=== PATIENT | male | born 1940 | race Caucasian/White ===

== ENCOUNTER 2019-03-06 19:31 | Emergency (ER) | payer OTHER, MEDICARE, SELFPAY | END 2019-03-06 22:52 | disposition home or self-care (01) | PROVIDERS: Emergency Provider Emergency Medicine; Family Provider Emergency Medicine Emergency Medical Services; Visit Provider Emergency Medicine | DX: F32.9 Major depressive disorder, single episode, unspecified (principal); E11.9 Type 2 diabetes mellitus without complications; I11.0 Hypertensive heart disease with heart failure; I50.9 Heart failure, unspecified; I25.10 Atherosclerotic heart disease of native coronary artery without angina pectoris; Z95.1 Presence of aortocoronary bypass graft | CPT/HCPCS: 70450; 71045; 80053; 81003; 85025; 99284 ==

== ENCOUNTER 2019-03-31 20:28 | Observation (INO) | payer OTHER, MEDICARE, SELFPAY ==
[2019-03-31 20:30] VITALS: BP 105/69; PULSE 79; RESP 16; TEMP 36.4; O2SAT 93; BMI 32.5
--- NOTE | 2019-03-31 20:30 | ED_ITS ---
Entered by Haylee Bryson, acting as scribe for Sol Nance HPI - Syncope General: Chief Complaint: Syncope Stated Complaint: SYNCOPAL EPISODE Time Seen by Provider: 03/31/19 20:31 Source: EMS Mode of arrival: EMS Limitations: no limitations History of Present Illness: HPI narrative: 78 yo m came to the er bu [facility]. Onset was today. Pt states that he was setting and when he got up he was dizzy and lightheaded. Pts family states that his family caught him when he fell and he was shaky after coming around. Pt states that his family wanted him to come to the hospital to get checked out. MD complaint: almost passed out Onset (ago): day(s) (today) Prodromal symptoms: other (dizzy) Witnessed: Yes - by Other (family) Context: standing up Injuries sustained associated with event: none Associated symptoms: Reports lightheadedness; Deny abdominal pain, chest pain, fever(s), headache(s), nausea or vertigo Treatments prior to arrival: none Review of Systems General: Reports: other (negative unless marked) Const: Denies: fever, chills, body aches, fatigue, malaise or diaphoresis Eyes: Denies: change in vision or blurry vision ENMT: Denies: throat pain, painful swallowing, hoarseness, ear pain, ear discharge, Change in hearing or nasal discharge Card: Reports: lightheadedness; Denies: chest pain, palpitations, irregular heart rhythm, syncope, pre-syncope, shortness of breath on exertion or shortness of breath when lying down Resp: Denies: shortness of breath, productive cough, non-productive cough, wheezing, coughing up blood or chest congestion GI: Denies: abdominal pain, nausea, vomiting, vomiting blood, coffee grounds in vomit, diarrhea, constipation, cramping, blood in stool or black tarry stool : Denies: flank pain, difficulty urinating, painful urination, urinary frequency, urinary urgency, decreased urine ouput, urinary incontinence or blood in urine Musc: Denies: neck pain, back pain, extremity pain, extremity swelling, joint pain, joint swelling, joint warmth or joint stiffness Skin/Breast: Denies: rash, skin tenderness or yellow skin Neuro: Denies: headache, numbness in extremities, weakness in extremities, changes in sensation, lack of coordination, difficulty walking, dizziness, vertigo or confusion Endo: Denies: excessive thirst, tired all the time, cold intolerance, excessive sweating, flushing or hot flashes Ahrsh/Lymph: Denies: easy bruising, easy bleeding, petechiae or enlarged lymph nodes All/Imm: Denies: hives, throat swelling, tongue swelling, facial swelling or acute wheezing PFSH ED PFSH: Statuses (acute, chronic, etc) shown below reflect problem list status as previously entered and may not be historically accurate Medical History (Updated 03/31/19 @ 22:23 by Sol Nance) CAD (coronary artery disease) (Acute) Carotid bruit (Acute) CHF (congestive heart failure) (Acute) Diabetes mellitus (Acute) Heart disease (Acute) Hypertension (Acute) Hypomagnesemia (Acute) Pulmonary edema (Acute) Renal failure (Acute) Syncope (Acute) Urolithiasis (Acute) Surgical History (Updated 03/31/19 @ 22:17 by Meenakshi Yeboah MD) H/O mitral valve replacement (Acute) Hx of CABG (Acute) S/P ureteral stent placement (Acute) Family History (Updated 03/31/19 @ 22:13 by Meenakshi Yeboah MD) Other Hyperlipidemia Hypertension Social History (Updated 03/31/19 @ 22:14 by Meenakshi Yeboah MD) Smoking and tobacco status: former smoker Alcohol intake: never Substance/Drug Use: never Marital status: Physical Exam Const: COMMON NORMALS: no apparent distress, oriented x3, no limitations, healthy appearing and well nourished EXAM LIMITATIONS: no altered mental status GENERAL APPEARANCE: cooperative, well kempt and well developed ORIENTATION/CONSCIOUSNESS: Yes awake HENMT: COMMON NORMALS: normocephalic, head/scalp atraumatic, hearing grossly normal bilaterally, external ears normal, EAC's normal, external nose normal and moist oral mucous membranes HEAD & SCALP: normal to inspection, normocephalic and atraumatic FACE & SINUS: normal facial exam and face symmetric NOSE: external nose normal and nares normal EXTERNAL EAR: Yes external ears normal EXTERNAL AUDITORY CANAL: EAC's normal MOUTH: oral and palatal mucosa normal and tongue normal Eye: COMMON NORMALS: PERRL, EOMs intact bilaterally, conjunctivae normal and no scleral icterus GENERAL EYE: normal appearance of both eyes and normal light reflex CONJUNCTIVA: Yes conjunctivae normal SCLERA: sclerae normal CORNEA: Yes corneas normal PUPIL: Yes PERRL DIRECT OPHTHALMOSCOPY: Yes normal light reflex Neck/C-Spine: COMMON NORMALS: full ROM, no lymphadenopathy, supple, no meningeal signs and no JVD GENERAL: Yes normal visual inspection and Yes trachea midline CERVICAL SPINE: Yes cervical ROM normal Chest: COMMONS NORMALS: inspection of chest normal and palpation of chest normal Resp: COMMON NORMALS: normal respiratory effort, no retractions, no use of accessory muscles and clear to auscultation bilaterally EFFORT & INSPECTION: Yes able to speak in complete sentences AUSCULTATION: clear to auscultation bilaterally Cardio: COMMON NORMALS: no JVD, regular rate, regular rhythm, S1 normal heart sound, S2 normal heart sound, no gallops, no clicks, no murmurs and no rub JUGULAR VENOUS DISTENTION: no JVD RATE: regular rate RHYTHM: regular rhythm HEART SOUNDS: S1 normal and S2 normal GI: COMMON NORMALS: soft to palpation, non-tender, no hepatosplenomegaly and no masses INSPECTION: Yes normal to inspection PALPATION: Yes soft and Yes no hepatosplenomegaly : COMMON NORMALS: Yes no CVA tenderness BLADDER/KIDNEY EXAM: Yes no CVA tenderness Back/Pelvis: COMMON NORMALS: no CVA tenderness, thoracic and lumbar spine normal to inspection, no thoracic nor lumbar tenderness and thoraco-lumbar ROM normal Extremity: COMMON NORMALS: normal to inspection, full ROM, normal capillary refill, no joint enlargement, no clubbing, cyanosis or edema and no calf tender ness Neuro: COMMON NORMALS: oriented x3, CN's II-XII intact bilaterally, moves all extremities, no focal motor deficits and no sensory deficits noted MENINGEAL SIGNS: Yes no meningeal signs Psych: COMMON NORMALS: mental status grossly normal, thought process normal, cooperative, affect normal, speech normal and activity/motor behavior normal APPEARANCE: Yes well kempt SPEECH: Yes normal speech THOUGHT PROCESS: normal thought process Skin: COMMON NORMALS: no rashes or lesions noted, skin turgor normal, no jaundice, no petechiae and no mottling GENERAL SKIN EXAM: no rashes or lesions noted and turgor normal Course ED course: 2058 -patient's orthostatic vital signs are positive. We will give 2 L of IV fluid and recheck his symptoms after that is completed. Vital Signs: Vital signs: Vital Signs Temperature 97.5 F L 03/31/19 20:30 Pulse Rate 67 03/31/19 20:51 Respiratory Rate 16 03/31/19 20:30 Blood Pressure 135/72 03/31/19 20:51 Pulse Oximetry 93 03/31/19 20:30 MDM - Syncope MDM Narrative: Medical decision making narrative: Arrival -patient arrives with a episode of unresponsiveness that has resolved. He has a cardiac history including diabetes. Differential is long including syncope, seizure, stroke among others. I will go ahead and initiate IV hydration and evaluate for common causes of his differential diagnoses. Admit -the patient was orthostatic and reveals an elevated creatinine from his baseline. He has a history of congestive heart failure so I proceeded with hydration slowly but despite this he still feels lightheaded. His EKG shows first-degree AV block and Q waves so a cardiac cause is still possible although felt to be less likely. I reviewed the case in full with Dr. Yeboah and he wants to admit the patient to the hospital for further hydration and he will consider possible echo or other evaluation. The patient agrees to this treatment plan. Lab Data: Attestation: I reviewed the patient's lab results. Labs: Lab Results 03/31/19 03/31/19 03/31/19 Range/Units 20:50 20:50 20:50 WBC 8.4 (4.0-10.0) 10^3/ uL RBC 4.57 (4.1-5.3) 10^6/u L Hgb 13.6 (11.7-16.6) g/dL Hct 41.5 L (42.0-52.0) % MCV 90.8 (80-94) fL MCH 29.8 (28.0-34.0) pg MCHC 32.8 (30.0-36.0) g/dL RDW 14.1 (12.1-15.1) % Plt Count 186 (130-400) 10^3/c mm MPV 9.7 (7.4-10.4) fL Neut % (Auto) 72.4 % Lymph % (Auto) 17.5 % [place] % (Auto) 8.1 % Eos % (Auto) 1.0 % Baso % (Auto) 0.5 % Neut # (Auto) 6.1 (1.8-7.7) 10^3/u L Lymph # (Auto) 1.5 (0.8-4.8) 10^3/u L [place] # (Auto) 0.7 (0.2-0.9) 10^3/u L Eos # (Auto) 0.1 (0.0-0.8) 10^3/u L Baso # (Auto) 0.0 (0.0-0.1) 10^3/u L Nucleated RBC % (a uto) 0 % Nucleated RBCs # 0.0 /100WBC Sodium 134 L (136-145) mmol/L Potassium 4.2 (3.5-5.1) mmol/L Chloride 95 L (98-107) mmol/L Carbon Dioxide 25 (22-29) mmol/L Anion Gap 18.2 (5-19) BUN 33 H (8-23) mg/dL Creatinine 2.1 H (0.7-1.2) mg/dL Glucose 239 H (74-106) mg/dL Calcium 9.8 (8.5-10.5) mg/dL Magnesium 2.0 (1.7-2.3) mg/dL Total Bilirubin 0.4 (0.15-1.2) mg/dL AST 14 (0-40) U/L ALT 18 (0-41) U/L Alkaline Phosphata se 92 (40-130) IU/L Troponin T Baselin e 48 H (0-15) ng/mL Total Protein 6.9 (6.6-8.7) g/dL Albumin 4.2 (3.5-5.2) g/dL Globulin 2.7 (1.3-4.6) g/dL Urine Color (Yellow) Urine Appearance (CLEAR) Urine pH (5-7) Ur Specific Gravit y (1.005-1.030) Urine Protein (Negative) Urine Glucose (UA) (Normal) Urine Ketones (Negative) Urine Occult Blood (Negative) Urine Nitrate (Negative) Urine Bilirubin (NEGATIVE) Urine Urobilinogen (Negative) mg/dL Ur Leukocyte Shilpa ase (Negative) Urine RBC (0-2) /hpf Urine WBC (0-5) /hpf Ur Squamous Epith Cells (0-5) Urine Bacteria (NONE) Hyaline Casts Urine Mucus 01/23/20 Range/Units 20:51 WBC (4.0-10.0) 10^3/ uL RBC (4.1-5.3) 10^6/u L Hgb (11.7-16.6) g/dL Hct (42.0-52.0) % MCV (80-94) fL MCH (28.0-34.0) pg MCHC (30.0-36.0) g/dL RDW (12.1-15.1) % Plt Count (130-400) 10^3/c mm MPV (7.4-10.4) fL Neut % (Auto) % Lymph % (Auto) % [place] % (Auto) % Eos % (Auto) % Baso % (Auto) % Neut # (Auto) (1.8-7.7) 10^3/u L Lymph # (Auto) (0.8-4.8) 10^3/u L [place] # (Auto) (0.2-0.9) 10^3/u L Eos # (Auto) (0.0-0.8) 10^3/u L Baso # (Auto) (0.0-0.1) 10^3/u L Nucleated RBC % (a uto) % Nucleated RBCs # /100WBC Sodium (136-145) mmol/L Potassium (3.5-5.1) mmol/L Chloride (98-107) mmol/L Carbon Dioxide (22-29) mmol/L Anion Gap (5-19) BUN (8-23) mg/dL Creatinine (0.7-1.2) mg/dL Glucose (74-106) mg/dL Calcium (8.5-10.5) mg/dL Magnesium (1.7-2.3) mg/dL Total Bilirubin (0.15-1.2) mg/dL AST (0-40) U/L ALT (0-41) U/L Alkaline Phosphata se (40-130) IU/L Troponin T Baselin e (0-15) ng/mL Total Protein (6.6-8.7) g/dL Albumin (3.5-5.2) g/dL Globulin (1.3-4.6) g/dL Urine Color Straw (Yellow) Urine Appearance Clear (CLEAR) Urine pH 5 (5-7) Ur Specific Gravit y 1.010 (1.005-1.030) Urine Protein Neg (Negative) Urine Glucose (UA) Trace H (Normal) Urine Ketones Negative (Negative) Urine Occult Blood Neg (Negative) Urine Nitrate Negative (Negative) Urine Bilirubin Neg (NEGATIVE) Urine Urobilinogen Norm (Negative) mg/dL Ur Leukocyte Shilpa ase Negative (Negative) Urine RBC None (0-2) /hpf Urine WBC 0-4 H (0-5) /hpf Ur Squamous Epith Cells 0-4 H (0-5) Urine Bacteria Trace (NONE) Hyaline Casts 0-4 H Urine Mucus Trace Imaging Data^: CXR: My impression: Poor inspiratory view. No acute cardiopulmonary findings. CT Head: Radiologist's impression: [address] [address] [address] Scan Report Signed Patient: Jose Armendariz Unit #: [id number] : 1940 Age/Sex: 78 / M ADM Date: 03/31/19 Loc: ER Room/Bed: Attending Dr: Ordering Provider/Ordering MD: Sol Nance DO Date of Service: 03/31/19 Procedure(s): CT head wo con* [id number] Accession Number(s): [id number] Report Number: [id number] PROCEDURE INFORMATION: Exam: CT Head Without Contrast Exam date and time: 03/31/2019 8:43 PM Age: 78 years old Clinical indication: Other: Syncope; Additional info: Brady/ams TECHNIQUE: Imaging protocol: Computed tomography of the head without contrast. Total DLP: 885.91 mGy-cm Radiation optimization: All CT scans at this facility use at least one of these dose optimization techniques: automated exposure control; mA and/or kV adjustment per patient size (includes targeted exams where dose is matched to clinical indication); or iterative reconstruction. COMPARISON: CT Head wo IV contrast* [id number] 03/06/2019 10:22 PM FINDINGS: Brain: Mild atrophy and mild white matter chronic microvascular changes are noted. No hemorrhage or CT evidence of acute infarction is seen. Ventricles: Normal. No ventriculomegaly. Bones/joints: Unremarkable. No acute fracture. Sinuses: Visualized sinuses are unremarkable. No fluid levels. Mastoid air cells: Visualized mastoid air cells are well aerated. Soft tissues: Unremarkable. CT/CT head wo con* [id number] IMPRESSION: No acute intracranial abnormality Radiation Dose CTDIVOL = (mGy): DLP = 885.91 (mGy-cm) Dictated By: Petar Meier MD Signed By: Petar Meier MD Signed Date/Time: 03/31/192122 DD/ 20 EKG Data^: EKG 1: Attestation: I personally reviewed and interpreted this EKG as follows: EKG interpretation date: 03/31/19 EKG interpretation time: 20:45 Interpretation: Normal sinus rhythm at 76 beats a minute, first-degree AV block, normal QRS duration, normal QTC, Q waves in 3 and aVF, nonspecific T wave flattening, findings similar to previous. 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, on chronic dialysis Condition: Stable Prescriptions: No Action Lasix 40 mg Tablet 40 mg PO DAILY RF: 0 atorvastatin 80 mg Tablet 80 mg PO QPM RF: 0 carvedilol 25 mg Tablet 25 mg PO BID RF: 0 Tylenol 325 mg Tablet 325 mg PO QID PRN (Reason: Pain) RF: 0 Senna-S 8.6-50 mg Tablet 1 tab-cap PO DAILY PRN (Reason: Constipation) RF: 0 Aspir-81 81 mg Tablet,Delayed Release (Dr/Ec) 81 mg PO DAILY RF: 0 MagOx 400 mg (241.3 mg magnesium) Tablet 400 mg PO DAILY RF: 0 Flomax 0.4 mg Capsule 0.4 mg PO DAILY RF: 0 erythromycin 5 mg/gram (0.5 %) Ointment 0.5 inch OPHTHALMIC (EYE) Q4H RF: 0 calcium polycarbophil 625 mg Tablet 1,250 mg PO DAILY RF: 0 docusate sodium 100 mg Capsule 100 mg PO TID PRN (Reason: Constipation) RF: 0 Novolog Flexpen U-100 Insulin 100 unit/mL (3 mL) Insulin Pen 0 unit SUBCUT TID RF: 0 omeprazole 20 mg Tablet,Delayed Release (Dr/Ec) 20 mg PO BID RF: 0 Vitamin D3 2,000 unit Tablet 2,000 unit PO DAILY RF: 0 venlafaxine 75 mg Tablet Extended Release 24 Hr 75 mg PO DAILY RF: 0 [place] 3-6-9 1,200 mg Capsule 1 cap PO BID RF: 0 Referrals: Sam Fay, [Family Provider] - Coding Level of Care Code ED Leave Specialist for Chg Fwd Exam Problem Focused The documentation recorded by the Braydon wolfe Stephanie Lyn, accurately reflects the service I personally performed and the decisions made by me, Sol Nance
--- NOTE | 2019-03-31 20:35 | ECG_ITS ---
Measurements Intervals [place] Rate: 76 P: 90 KS: 222 QRS: 34 QRSD: 110 T: 76 QT: 382 QTc: 430 SINUS RHYTHM WITH FIRST DEGREE AV BLOCK INFERIOR MYOCARDIAL INFARCTION , PROBABLY OLD [40+ ms Q WAVE AND/OR ST/T AB ABNORMALITY IN II/aVF] Compared to ECG 01/19/2018 01:22:09 Sinus tachycardia no longer present Myocardial infarct finding still present Electronically Signed On 04-01-2019 15:33:21 [employer]LE[employer] by Pippa Zimmerman M.D. [email or web address]
--- NOTE | 2019-03-31 20:35 | XRR_ITS ---
PROCEDURE INFORMATION: Exam: XR Chest, 1 View Exam date and time: 03/31/2019 9:02 PM Age: 78 years old Clinical indication: Cough and other: Syncope; Prior surgery; Surgery type: Cabg TECHNIQUE: Imaging protocol: XR of the chest Views: 1 view. COMPARISON: CR Chest 1 [place] [id number] 03/06/2019 9:58 PM FINDINGS: Lungs: The lungs are underinflated. Atelectasis and/or patchy airspace disease is present in the left lower lobe. Infection is possible. Pleural space: Unremarkable. No pleural effusion. No pneumothorax. Heart/Mediastinum: The cardiac silhouette is mildly enlarged, likely due to underlying cardiomegaly. Bones/joints: The patient is status post sternotomy. XR/XR chest 1V portable [id number] IMPRESSION: The lungs are underinflated. Atelectasis and/or patchy airspace disease is present in the left lower lobe. Infection is possible.
--- NOTE | 2019-03-31 20:35 | CTR_ITS ---
PROCEDURE INFORMATION: Exam: CT Head Without Contrast Exam date and time: 03/31/2019 8:43 PM Age: 78 years old Clinical indication: Other: Syncope; Additional info: Brady/ams TECHNIQUE: Imaging protocol: Computed tomography of the head without contrast. Total DLP: 885.91 mGy-cm Radiation optimization: All CT scans at this facility use at least one of these dose optimization techniques: automated exposure control; mA and/or kV adjustment per patient size (includes targeted exams where dose is matched to clinical indication); or iterative reconstruction. COMPARISON: CT Head wo IV contrast* [id number] 03/06/2019 10:22 PM FINDINGS: Brain: Mild atrophy and mild white matter chronic microvascular changes are noted. No hemorrhage or CT evidence of acute infarction is seen. Ventricles: Normal. No ventriculomegaly. Bones/joints: Unremarkable. No acute fracture. Sinuses: Visualized sinuses are unremarkable. No fluid levels. Mastoid air cells: Visualized mastoid air cells are well aerated. Soft tissues: Unremarkable. CT/CT head wo con* [id number] IMPRESSION: No acute intracranial abnormality Radiation Dose CTDIVOL = (mGy): DLP = 885.91 (mGy-cm)
[2019-03-31 20:51] VITALS: BP 104/62; BP 115/55; BP 135/72; PULSE 67; PULSE 74; PULSE 76
[2019-03-31 21:11] LABS: Add Urine Culture? No; Bacteria Urine TRACE; Bilirubin Urine Neg (NEGATIVE); Blood Urine Neg (Negative); Glucose Urine UA Trace (Normal); Hyaline Casts Urine 0-4; Ketones Urine Negative (Negative); Leukocyte Esterase Urine Negative (Negative); Mucus Urine TRACE; Nitrate Urine Negative (Negative); Protein Urine Neg (Negative); Squamous Epithelial Cell Urine 0-4 (0-5); Urine Appearance Clear (CLEAR); Urine Color Straw (Yellow); Urobilinogen Urine Norm (Negative); WBC Urine 0-4 /hpf (0-5); pH Urine 5 (5-7)
[2019-03-31 21:12] LABS: Basophils % 0.5 %; Eosinophils # 0.1 10^3/uL (0.0-0.8); Hematocrit 41.5 % (42.0-52.0); Hemoglobin 13.6 g/dL (11.7-16.6); Lymphocytes # 1.5 10^3/uL (0.8-4.8); Lymphocytes % 17.5 %; Mean Corpuscular HGB Conc 32.8 g/dL (30.0-36.0); Mean Corpuscular Hemoglobin 29.8 pg (28.0-34.0); Mean Corpuscular Volume 90.8 fL (80-94); Mean Platelet Volume 9.7 fL (7.4-10.4); Monocytes # 0.7 10^3/uL (0.2-0.9); Monocytes % 8.1 %; Neutrophils # 6.1 10^3/uL (1.8-7.7); Neutrophils % 72.4 %; Nucleated Red Blood Cells % 0 %; Platelet Count 186 10^3/cmm (130-400); Red Blood Count 4.57 10^6/uL (4.1-5.3); Red Cell Distribution Width 14.1 % (12.1-15.1); White Blood Count 8.4 10^3/uL (4.0-10.0)
[2019-03-31] MEDS: sodium chloride 0.9% 1,000 ML 999 ML IV ×2 (21:16)
[2019-03-31 21:35] LABS: Troponin(5th) Baseline 48 ng/mL (0-15)
[2019-03-31 21:54] LABS: Alanine Aminotransferase 18 U/L (0-41); Albumin Level 4.2 g/dL (3.5-5.2); Alkaline Phosphatase 92 IU/L (40-130); Anion Gap 18.2 (5-19); Aspartate Amino Transferase 14 U/L (0-40); Blood Urea Nitrogen 33 mg/dL (8-23); Calcium 9.8 mg/dL (8.5-10.5); Carbon Dioxide 25 mmol/L (22-29); Chloride 95 mmol/L (98-107); Globulin 2.7 g/dL (1.3-4.6); Glucose 239 mg/dL (74-106); Potassium 4.2 mmol/L (3.5-5.1); Sodium 134 mmol/L (136-145); Total Bilirubin 0.4 mg/dL (0.15-1.2); Total Protein 6.9 g/dL (6.6-8.7)
--- NOTE | 2019-03-31 22:10 | PM.HP ---
Providers/Chief Complaint Chief Complaint: SYNCOPAL EPISODE History of Present Illness Jose Armendariz is a 78 year old male who carries diagnosis of preserved ejection fraction heart failure, mechanical mitral valve 2008, not on Coumadin (taking aspirin), came in with chief complaint of single episode of syncopal event. Patient is endorsing that about 1 to 2 hours before the syncopal event he took his Coreg. When he was trying to get up from his chair he sway towards his left side, he seemed confused by the family, family noticed some myoclonic twitching, then family helped him to lay on the floor and his symptoms resolved he checked his blood pressure at that time systolic blood pressure was 80. His symptoms improved quickly without any confusion, seizure-like activities, urinary incontinence, tongue biting, chest pain, shortness of breath or palpitations. Patient is denying any diarrhea, vomiting but he is endorsing polyuria and constipation. He is able to pass flatus, he had one small bowel movement this morning, he had no abdominal pain. Diagnostics in ER showed normal hemodynamics, when I examined examining him he was status post 2 L normal saline fluids resuscitation, systolic blood pressure was 170, diastolic 90 mmHg. Patient was asymptomatic, able to give me all the details, he wanted to go home but hospital service was requested to admit him for syncopal event because of his heart failure and mitral valve replacement history I ordered d-dimer which came high after reviewing EKG which showed S1Q3, cannot get CTA I ordered VQ scan instead Review of Systems Const: Denies: fever or chills Eyes: Denies: change in vision ENMT: Denies: throat pain Card: Denies: chest pain, palpitations or edema Resp: Denies: shortness of breath GI: Reports: constipation; Denies: abdominal pain, nausea or vomiting : Denies: flank pain, difficulty urinating or urinary frequency Musc: Denies: neck pain Skin/Breast: Denies: rash Neuro: Denies: headache Psych: Denies: anxiety Endo: Reports: excessive urination Harsh/Lymph: Denies: easy bruising All/Imm: Denies: hives Medications/Allergies Home Medications Medication Instructions Recorded Confirmed Last Taken Type acetaminophen [Tylenol] 325 mg PO QID PRN 03/31/19 03/31/19 Unknown History aspirin [Aspir-81] 81 mg PO DAILY 03/31/19 03/31/19 Unknown History atorvastatin 80 mg PO QPM 03/31/19 03/31/19 Unknown History calcium polycarbophil 1,250 mg PO DAILY 03/31/19 03/31/19 Unknown History carvedilol 25 mg PO BID 03/31/19 03/31/19 Unknown History cholecalciferol (vitamin D3) 2,000 unit PO DAILY 03/31/19 03/31/19 Unknown History [Vitamin D3] docusate sodium 100 mg PO TID PRN 03/31/19 03/31/19 Unknown History erythromycin 0.5 inch OPHTHALMIC (EYE) Q4H 03/31/19 03/31/19 Unknown History fish,bora,flax oils-om3,6,9no1 1 cap PO BID 03/31/19 03/31/19 Unknown History [[place] 3-6-9] furosemide [Lasix] 40 mg PO DAILY 03/31/19 03/31/19 Unknown History insulin aspart U-100 [Novolog 0 unit SUBCUT TID 03/31/19 03/31/19 Unknown History Flexpen U-100 Insulin] magnesium oxide [MagOx] 400 mg PO DAILY 03/31/19 03/31/19 Unknown History omeprazole 20 mg PO BID 03/31/19 03/31/19 Unknown History sennosides-docusate sodium 1 tab-cap PO DAILY PRN 03/31/19 03/31/19 Unknown History [Senna-S] tamsulosin [Flomax] 0.4 mg PO DAILY 03/31/19 03/31/19 Unknown History venlafaxine 75 mg PO DAILY 03/31/19 03/31/19 Unknown History Allergies Allergy/AdvReac Type Severity Reaction Status Date / Time lisinopril Allergy ALGY-Rash Verified 03/31/19 20:39 PFSH Acute PFSH: Statuses (acute, chronic, etc) shown below reflect problem list status as previously entered and may not be historically accurate Medical History (Updated 03/31/19 @ 22:23 by Sol Nance) CAD (coronary artery disease) (Acute) Carotid bruit (Acute) CHF (congestive heart failure) (Acute) Diabetes mellitus (Acute) Heart disease (Acute) Hypertension (Acute) Hypomagnesemia (Acute) Pulmonary edema (Acute) Renal failure (Acute) Syncope (Acute) Urolithiasis (Acute) Surgical History (Updated 03/31/19 @ 22:17 by Meenakshi Yeboah MD) H/O mitral valve replacement (Acute) Hx of CABG (Acute) S/P ureteral stent placement (Acute) Family History (Updated 03/31/19 @ 22:13 by Meenakshi Yeboah MD) Other Hyperlipidemia Hypertension Social History (Updated 03/31/19 @ 22:14 by Meenakshi Yeobah MD) Smoking and tobacco status: former smoker Alcohol intake: never Substance/Drug Use: never Marital status: Vitals/I&O/Wt Last Vital Signs Temp 97.5 F L 03/31/19 20:30 Pulse 67 03/31/19 20:51 Resp 16 03/31/19 20:30 BP 135/72 03/31/19 20:51 Pulse Ox 93 03/31/19 20:30 Weight last 48 hrs Weight 99.79 kg Physical Exam Narrative: EXAM NARRATIVE: Morbidly obese male sitting comfortable in his bed with normal hemodynamics, systolic blood pressure 170mmhg Neurologically nonfocal exam GCS 15, Patient felt dizzy when he was try to get out of bed S1, S2 EKG showed normal sinus rhythm, no active signs of heart failure, no peripheral edema or JVD Lungs were positive for adequate breath sounds with mild crackles at the bases otherwise no wheezing Abdomen soft but distended and bloated, bowel sounds sluggish, nontender, Skin shows no signs of ischemia gangrene or ulcer No lower extremity edema Appropriate mood and affect No signs of dehydration Data : 03/31/19 20:50 03/31/19 20:50 A&P Assessment and plan (1) Syncope: Status: Acute Qualifiers: Syncope type: unspecified Qualified Code(s): R55 - Syncope and collapse Code(s): R55 - Syncope and collapse (2) 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, on chronic dialysis: Status: Acute Qualifiers: Acute renal failure type: unspecified Qualified Code(s): N17.9 - Acute kidney failure, unspecified; N18.9 - Chronic kidney disease, unspecified; Z99.2 - Dependence on renal dialysis Code(s): N17.9 - Acute kidney failure, unspecified; N18.9 - Chronic kidney disease, unspecified; Z99.2 - Dependence on renal dialysis (3) Hypertension: Status: Acute Code(s): I10 - Essential (primary) hypertension (4) CHF (congestive heart failure): Status: Acute Code(s): I50.9 - Heart failure, unspecified (5) Diabetes mellitus: Status: Acute Code(s): E11.9 - Type 2 diabetes mellitus without complications Additional A&P Information Syncope Patient is orthostatic positive he was feeling dizzy on his attempt to get out of bed otherwise currently he is hypotensive after getting 2 L of normal saline High d-dimer we will check VQ scan to rule out PE First-degree AV block on EKG with S1 Q 3 pattern No electrolyte abnormality No signs of dehydration Patient is endorsing symptoms of hyperglycemia such as polyuria and hyperglycemia with polyphagia, I do believe that combination of polyuria with tamsulosin might have contributed to his symptoms Echo and carotid Doppler in the morning PT evaluation Chronic kidney disease with baseline creatinine fluctuating between 1.8-2 Preserved ejection fraction heart failure: No active exacerbation, I will check BNP Because of crackles bibasilar I will give him 1 dose of Lasix in the morning Hypertension: Currently blood pressure 170 systolic, I would continue his home medications, Lasix in the morning, Type 2 diabetes suboptimally controlled, current blood sugar 239 He takes Lantus 50 units with NovoLog with meals Mitral valve replacement 2008 Patient is not on Coumadin Patient is stating that he has been on aspirin which was prescribed by his human geography instructor DVT prophylaxis: Heparin Full code GI prophylaxis: Omeprazole Attestations Medical Necessity Statement*: Anticipating discharge in less than 48 hours needs. 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
[2019-03-31 22:27] VITALS: BP 156/93; PULSE 82; RESP 16; O2SAT 93
--- NOTE | 2019-03-31 22:35 | ECG_ITS ---
Measurements Intervals [place] Rate: 82 P: 83 NC: 203 QRS: 27 QRSD: 105 T: 45 QT: 380 QTc: 445 SINUS RHYTHM INFERIOR MYOCARDIAL INFARCTION , PROBABLY OLD [40+ ms Q WAVE AND/OR ST/T ABNORMALITY IN II/aVF] Compared to ECG 01/19/2018 01:22:09 Sinus tachycardia no longer present First degree AV block no longer present Myocardial infarct finding still present Electronically Signed On 04-01-2019 15:36:46 SOLAR WATER HEATER INSTALLER by Pippa Zimmerman M.D. [email or web address]
[2019-03-31 22:41] LABS: D Dimer 0.62 ug/mIFEU (0-0.59)
[2019-03-31 22:57] VITALS: BP 173/83; PULSE 79; RESP 22; TEMP 36.6; O2SAT 94
[2019-03-31 23:01] LABS: Troponin 5 2HR 45.32 ng/mL (0-15)
[2019-03-31 23:03] VITALS: BP 170/92; PULSE 82; RESP 16; O2SAT 93
[2019-03-31 23:15] LABS: Troponin 5 2HR Delta -2.68 ABS# (0-10)
[2019-03-31] MEDS: heparin 5,000 unit/mL INJ 1 mL 5000 UNIT SUBCUT (23:38)
[2019-03-31] MEDS: sodium chloride 0.9% 1,000 ML 100 ML IV (23:39)
[2019-03-31 23:43] LABS: Thyroid Stimulating Hormone 1.59 uIU/mL (0.27-4.20)
[2019-03-31 23:56] LABS: Glucose Point of Care 168 mg/dL (70-110)
[2019-03-31 23:59] LABS: NT Pro B Type Natriuretic Pept 487 pg/mL (0-450)
[2019-04-01] VITALS (7 sets, daily range): BP systolic 139–177; BP diastolic 68–102; PULSE 73–84; RESP 12–16; TEMP 36.6–36.8; O2SAT 93–96
[2019-04-01] MEDS: insulin glargine 100 units/1 mL 50 UNIT SUBCUT (00:02)
--- NOTE | 2019-04-01 02:35 | ECG_ITS ---
Measurements Intervals [place] Rate: 81 P: 95 MT: 213 QRS: 55 QRSD: 106 T: 40 QT: 375 QTc: 438 SINUS RHYTHM WITH FIRST DEGREE AV BLOCK POSSIBLE LATERAL MYOCARDIAL INFARCTION [30 ms Q WAVE IN I/aVL/V5/V6], PROBABLY OLD INFERIOR MYOCARDIAL INFARCTION [40+ ms Q WAVE AND/OR ST/T ABNORMALITY IN II/aVF], PROBABLY OLD Compared to ECG 01/19/2018 01:22:09 Sinus tachycardia no longer present Myocardial infarct finding still present Electronically Signed On 04-01-2019 15:37:00 BLUEPRINTING AND PHOTOCOPY SUPERVISOR by Pippa Zimmerman M.D. [email or web address]
[2019-04-01 03:10] LABS: Blood Urea Nitrogen 29 mg/dL (8-23); Calcium 9.3 mg/dL (8.5-10.5); Carbon Dioxide 26 mmol/L (22-29); Chloride 101 mmol/L (98-107); Glucose 172 mg/dL (74-106); Osmolality Calculated 285 mOsm/kg (285-295); Sodium 137 mmol/L (136-145)
[2019-04-01 03:12] LABS: Troponin 5 6HR 45.05 ng/L (0-15); Troponin 5 6HR Delta -2.95 ng/L (0-12)
[2019-04-01 03:17] LABS: Basophils % 0.1 %; Eosinophils # 0.1 10^3/uL (0.0-0.8); Hematocrit 37.4 % (42.0-52.0); Hemoglobin 12.6 g/dL (11.7-16.6); Lymphocytes # 1.6 10^3/uL (0.8-4.8); Lymphocytes % 21.2 %; Mean Corpuscular HGB Conc 33.7 g/dL (30.0-36.0); Mean Corpuscular Hemoglobin 30.3 pg (28.0-34.0); Mean Corpuscular Volume 89.9 fL (80-94); Mean Platelet Volume 9.8 fL (7.4-10.4); Monocytes # 0.6 10^3/uL (0.2-0.9); Monocytes % 8.1 %; Neutrophils # 5.3 10^3/uL (1.8-7.7); Neutrophils % 69.3 %; Nucleated Red Blood Cells % 0 %; Platelet Count 174 10^3/cmm (130-400); Red Blood Count 4.16 10^6/uL (4.1-5.3); White Blood Count 7.7 10^3/uL (4.0-10.0)
[2019-04-01 07:26] LABS: Glucose Point of Care 145 mg/dL (70-110)
[2019-04-01] MEDS: carvedilol 6.25 mg Tablet PO (09:16)
[2019-04-01] MEDS: magnesium oxide 400 mg tablet PO (09:16)
[2019-04-01] MEDS: aspirin 81 mg EC Tablet PO (09:17)
[2019-04-01] MEDS: pantoprazole DR 40 mg Tablet PO (09:17)
[2019-04-01] MEDS: heparin 5,000 unit/mL INJ 1 mL 5000 UNIT SUBCUT (09:19)
[2019-04-01 11:14] LABS: Glucose Point of Care 189 mg/dL (70-110)
--- NOTE | 2019-04-01 12:42 | PC.CHAP ---
Pastoral Care Encounter/Spiritual Assessment Type of Contact [] Declined surveillance inspector visit [] Patient/Family/Request visit [] Outpatient visit [] Follow-up visit [] Physician referral [] Code/Alert [x] Routine visit [] Staff referral [] Actively dying [] Patient sleeping [] Family support [] [] Out of room [] Palliative care [] [] Receiving care in room [] Pre-surgical visit [] Trauma [] Long length of stay [] ICU visit [] Other: Relational/Emotional Strength [x] Patient feels connected with others/family/visitors/staff [x] Distress [] Loneliness/isolation [] Abandonment Spirituality of Patient [x] Person of [place]ague [] Attends Anglican of their [place] [x] Believes in Prayer [] Reads Bible or Yazidism materials [] There are Spiritual issues to be addressed Commissioning Manager Interventions [x] Prayer [x] Active listening [x] Non-anxious presence [x] Spiritual/emotional support [] Crisis/trauma care [x] Spiritual counseling [] Bereavement support [] Provided bereavement packet [] Provided Bible/devotional materials [] Provided toy/stuffed animal, coloring book to patient or family member [] Completed spiritual assessment [] Provided Communion [] Anointing/[place] [] Salvation [] Other: Impact on Illness or Injury [] Angry [] Fearful [x] Anxious [] Often cries [] Exhaustion [] Unable to work [] Unable to attend moravian [] Unable to walk/stand [] Unable to read [] Unable to drive [] Unable to eat/drink [] Unable to sleep [] Unable to be with family [] Other: Summary Patient is anxious and distressed over pending lung test. Time spent with patient 10-minutes Pastoral Care Encounter/Spiritual Assessment Type of Contact [] Declined surveillance inspector visit [] Patient/Family/Request visit [] Outpatient visit [] Follow-up visit [] Physician referral [] Code/Alert [] Routine visit [] Staff referral [] Actively dying [] Patient sleeping [] Family support [] [] Out of room [] Palliative care [] [] Receiving care in room [] Pre-surgical visit [] Trauma [] Long length of stay [] ICU visit [] Other: Relational/Emotional Strength [] Patient feels connected with others/family/visitors/staff [] Distress [] Loneliness/isolation [] Abandonment Spirituality of Patient [] Person of [place] [] Attends Anglican of their [place] [] Believes in Prayer [] Reads Bible or Yazidism materials [] There are Spiritual issues to be addressed Commissioning Manager Interventions [] Prayer [] Active listening [] Non-anxious presence [] Spiritual/emotional support [] Crisis/trauma care [] Spiritual counseling [] Bereavement support [] Provided bereavement packet [] Provided Bible/devotional materials [] Provided toy/stuffed animal, coloring book to patient or family member [] Completed spiritual assessment [] Provided Communion [] Anointing/[place] [] Salvation [] Other: Impact on Illness or Injury [] Angry [] Fearful [] Anxious [] Often cries [] Exhaustion [] Unable to work [] Unable to attend moravian [] Unable to walk/stand [] Unable to read [] Unable to drive [] Unable to eat/drink [] Unable to sleep [] Unable to be with family [] Other: Summary Time spent with patient
--- NOTE | 2019-04-01 15:25 | PM.DCS ---
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, on chronic dialysis: Status: Acute Qualifiers: Acute renal failure type: unspecified Qualified Code(s): N17.9 - Acute kidney failure, unspecified; N18.9 - Chronic kidney disease, unspecified; Z99.2 - Dependence on renal dialysis (3) Hypertension: Status: Acute (4) CHF (congestive heart failure): Status: Acute (5) Diabetes mellitus: Status: Acute Reason for Visit Reason for Visit: Reason For Visit: SYNCOPAL EPISODE Hospital Course Discharge Summary: This is a 78-year-old male with a past medical history of CABG x2, mitral valve replacement with mechanical valve, Maze procedure for atrial fibrillation, diastolic CHF, who presents to the emergency room due to complaints of syncope. Patient's syncope was determined to be orthostatic hypotension, his orthostatic vitals were positive, he received IV hydration, his dose of metoprolol was decreased to 6.25 twice daily, his dose of Lasix was decreased to 20 mg once daily. Patient was advised to transfer gait, ambulate with care, and to follow-up with his [facility] in 1 to 2 weeks. His syncope work-up, blood work was relatively unremarkable, included a carotid ultrasound which showed bilateral ICA stenosis less than 50%, echocardiogram showed an ejection fraction of 63%, no significant wall motion abnormalities. Patient's EKG normal sinus rhythm, first-degree AV block, no significant ST-T wave changes. Patient's telemetry showed no significant arrhythmias. Patient has a history of atrial fibrillation treated with Maze procedure, although patient's EKG and telemetry monitoring did not show any significant evidence of atrial fibrillation, his echocardiogram showed some evidence of atrial fibrillation. I am ordering a Holter monitor on discharge, and patient should follow-up with his primary care provider provider in 1 to 2 weeks. Physical Exam Const: COMMON NORMALS: no apparent distress and oriented x3 GENERAL APPEARANCE: cooperative and comfortable HENMT: COMMON NORMALS: normocephalic HEAD & SCALP: normocephalic Eye: COMMON NORMALS: PERRL, EOMs intact bilaterally and no papilledema GENERAL EYE: normal appearance of both eyes PUPIL: Yes PERRL DIRECT OPHTHALMOSCOPY: Yes no papilledema Neck/C-Spine: COMMON NORMALS: full ROM, no lymphadenopathy, no JVD and thyroid normal THYROID: thyroid normal Lymph: LYMPHATIC: no lymphadenopathy noted Resp: COMMON NORMALS: normal respiratory effort, no retractions, no use of accessory muscles and clear to auscultation bilaterally AUSCULTATION: clear to auscultation bilaterally Cardio: COMMON NORMALS: no JVD, regular rate, regular rhythm, S1 normal heart sound, S2 normal heart sound, no gallops, no clicks and no murmurs RATE: regular rate RHYTHM: regular rhythm HEART SOUNDS: S1 normal and S2 normal GI: COMMON NORMALS: normal to inspection, nondistended, normoactive bowel sounds, soft to palpation, non-tender and no hepatosplenomegaly PALPATION: Yes soft and Yes no hepatosplenomegaly Extremity: COMMON NORMALS: normal to inspection, full ROM and no pedal edema Neuro: COMMON NORMALS: oriented x3, CN's II-XII intact bilaterally, moves all extremities and no focal motor deficits Psych: COMMON NORMALS: mental status grossly normal, thought process normal and cooperative THOUGHT PROCESS: normal thought process Discharge Data Data Completed and Pending: Completed Studies During Hospitalization Category Date Time Status CT head wo con* [id number] Urgent Cat Scan 03/31/19 20:35 Completed XR chest 1V sonya ble [id number] Stat Exams 03/31/19 20:35 Completed CV carotid duplex BI* [id number] Routine Ultrasound 04/01/19 22:57 Completed CV echo complete* [id number] Routine Ultrasound 04/01/19 22:57 Completed Labs from last 24 hours 04/01/19 04/01/19 04/01/19 10:30 07:13 02:38 WBC RBC Hgb Hct MCV MCH MCHC RDW Plt Count MPV Neut % (Auto) Lymph % (Auto) [place] % (Auto) Eos % (Auto) Baso % (Auto) Neut # (Auto) Lymph # (Auto) [place] # (Auto) Eos # (Auto) Baso # (Auto) Nucleated RBC % (a uto) Nucleated RBCs # D-Dimer Sodium 137 Potassium 4.0 Chloride 101 Carbon Dioxide 26 Anion Gap 14.0 BUN 29 H Creatinine 1.7 H Glucose 172 H POC Glucose 189 145 Calculated Osmolal ity 285 Calcium 9.3 Magnesium Total Bilirubin AST ALT Alkaline Phosphata se Troponin I 6 Hour Troponin I Hi Sens Del Troponin T Baselin e Troponin T 120 Min [place] Troponin T NT-Pro-B Natriuret Pep Total Protein Albumin Globulin TSH Urine Color Urine Appearance Urine pH Ur Specific Gravit y Urine Protein Urine Glucose (UA) Urine Ketones Urine Occult Blood Urine Nitrate Urine Bilirubin Urine Urobilinogen Ur Leukocyte Shilpa ase Urine RBC Urine WBC Ur Squamous Epith Cells Urine Bacteria Hyaline Casts Urine Mucus 04/01/19 04/01/19 03/31/19 02:38 02:38 23:43 WBC 7.7 RBC 4.16 Hgb 12.6 Hct 37.4 L MCV 89.9 MCH 30.3 MCHC 33.7 RDW 14.0 Plt Count 174 MPV 9.8 Neut % (Auto) 69.3 Lymph % (Auto) 21.2 [place] % (Auto) 8.1 Eos % (Auto) 1.0 Baso % (Auto) 0.1 Neut # (Auto) 5.3 Lymph # (Auto) 1.6 [place] # (Auto) 0.6 Eos # (Auto) 0.1 Baso # (Auto) 0.0 Nucleated RBC % (a uto) 0 Nucleated RBCs # 0.0 D-Dimer Sodium Potassium Chloride Carbon Dioxide Anion Gap BUN Creatinine Glucose POC Glucose 168 Calculated Osmolal ity Calcium Magnesium Total Bilirubin AST ALT Alkaline Phosphata se Troponin I 6 Hour 45.05 H Troponin I Hi Sens Del -2.95 L Troponin T Baselin e Troponin T 120 Min [place] Troponin T NT-Pro-B Natriuret Pep Total Protein Albumin Globulin TSH Urine Color Urine Appearance Urine pH Ur Specific Gravit y Urine Protein Urine Glucose (UA) Urine Ketones Urine Occult Blood Urine Nitrate Urine Bilirubin Urine Urobilinogen Ur Leukocyte Shilpa ase Urine RBC Urine WBC Ur Squamous Epith Cells Urine Bacteria Hyaline Casts Urine Mucus 03/31/19 03/31/19 03/31/19 22:37 22:37 20:51 WBC RBC Hgb Hct MCV MCH MCHC RDW Plt Count MPV Neut % (Auto) Lymph % (Auto) [place] % (Auto) Eos % (Auto) Baso % (Auto) Neut # (Auto) Lymph # (Auto) [place] # (Auto) Eos # (Auto) Baso # (Auto) Nucleated RBC % (a uto) Nucleated RBCs # D-Dimer Sodium Potassium Chloride Carbon Dioxide Anion Gap BUN Creatinine Glucose POC Glucose Calculated Osmolal ity Calcium Magnesium Total Bilirubin AST ALT Alkaline Phosphata se Troponin I 6 Hour Troponin I Hi Sens Del Troponin T Baselin e Troponin T 120 Min [place] 45.32 H Delta Troponin T -2.68 L NT-Pro-B Natriuret Pep Total Protein Albumin Globulin TSH 1.59 Urine Color Straw Urine Appearance Clear Urine pH 5 Ur Specific Gravit y 1.010 Urine Protein Neg Urine Glucose (UA) Trace H Urine Ketones Negative Urine Occult Blood Neg Urine Nitrate Negative Urine Bilirubin Neg Urine Urobilinogen Norm Ur Leukocyte Shilpa ase Negative Urine RBC None Urine WBC 0-4 H Ur Squamous Epith Cells 0-4 H Urine Bacteria Trace Hyaline Casts 0-4 H Urine Mucus Trace 03/31/19 03/31/19 03/31/19 20:50 20:50 20:50 WBC RBC Hgb Hct MCV MCH MCHC RDW Plt Count MPV Neut % (Auto) Lymph % (Auto) [place] % (Auto) Eos % (Auto) Baso % (Auto) Neut # (Auto) Lymph # (Auto) [place] # (Auto) Eos # (Auto) Baso # (Auto) Nucleated RBC % (a uto) Nucleated RBCs # D-Dimer 0.62 H Sodium Potassium Chloride Carbon Dioxide Anion Gap BUN Creatinine Glucose POC Glucose Calculated Osmolal ity Calcium Magnesium Total Bilirubin AST ALT Alkaline Phosphata se Troponin I 6 Hour Troponin I Hi Sens Del Troponin T Baselin e 48 H Troponin T 120 Min [place] Troponin T NT-Pro-B Natriuret Pep 487 H Total Protein Albumin Globulin TSH Urine Color Urine Appearance Urine pH Ur Specific Gravit y Urine Protein Urine Glucose (UA) Urine Ketones Urine Occult Blood Urine Nitrate Urine Bilirubin Urine Urobilinogen Ur Leukocyte Shilpa ase Urine RBC Urine WBC Ur Squamous Epith Cells Urine Bacteria Hyaline Casts Urine Mucus 03/31/19 03/31/19 20:50 20:50 WBC 8.4 RBC 4.57 Hgb 13.6 Hct 41.5 L MCV 90.8 MCH 29.8 MCHC 32.8 RDW 14.1 Plt Count 186 MPV 9.7 Neut % (Auto) 72.4 Lymph % (Auto) 17.5 [place] % (Auto) 8.1 Eos % (Auto) 1.0 Baso % (Auto) 0.5 Neut # (Auto) 6.1 Lymph # (Auto) 1.5 [place] # (Auto) 0.7 Eos # (Auto) 0.1 Baso # (Auto) 0.0 Nucleated RBC % (a uto) 0 Nucleated RBCs # 0.0 D-Dimer Sodium 134 L Potassium 4.2 Chloride 95 L Carbon Dioxide 25 Anion Gap 18.2 BUN 33 H Creatinine 2.1 H Glucose 239 H POC Glucose Calculated Osmolal ity Calcium 9.8 Magnesium 2.0 Total Bilirubin 0.4 AST 14 ALT 18 Alkaline Phosphata se 92 Troponin I 6 Hour Troponin I Hi Sens Del Troponin T Baselin e Troponin T 120 Min [place] Troponin T NT-Pro-B Natriuret Pep Total Protein 6.9 Albumin 4.2 Globulin 2.7 TSH Urine Color Urine Appearance Urine pH Ur Specific Gravit y Urine Protein Urine Glucose (UA) Urine Ketones Urine Occult Blood Urine Nitrate Urine Bilirubin Urine Urobilinogen Ur Leukocyte Shilpa ase Urine RBC Urine WBC Ur Squamous Epith Cells Urine Bacteria Hyaline Casts Urine Mucus Vitals: Last Vital Signs Temp 97.8 F 04/01/19 15:13 Pulse 73 04/01/19 15:13 Resp 12 04/01/19 15:13 BP 139/94 04/01/19 15:13 Pulse Ox 96 04/01/19 15:13 Discharge Plan Discharge Patient Disposition: Home, Self-Care Condition: Stable Prescriptions: New carvedilol 6.25 mg Tablet 6.25 mg PO BID 30 Days Qty: 30 RF: 0 Continued atorvastatin 80 mg Tablet 80 mg PO QPM RF: 0 Tylenol 325 mg Tablet 325 mg PO QID PRN (Reason: Pain) RF: 0 Senna-S 8.6-50 mg Tablet 1 tab-cap PO DAILY PRN (Reason: Constipation) RF: 0 Aspir-81 81 mg Tablet,Delayed Release (Dr/Ec) 81 mg PO DAILY RF: 0 MagOx 400 mg (241.3 mg magnesium) Tablet 400 mg PO DAILY RF: 0 Flomax 0.4 mg Capsule 0.4 mg PO DAILY RF: 0 erythromycin 5 mg/gram (0.5 %) Ointment 0.5 inch OPHTHALMIC (EYE) Q4H RF: 0 calcium polycarbophil 625 mg Tablet 1,250 mg PO DAILY RF: 0 docusate sodium 100 mg Capsule 100 mg PO TID PRN (Reason: Constipation) RF: 0 Novolog Flexpen U-100 Insulin 100 unit/mL (3 mL) Insulin Pen 0 unit SUBCUT TID RF: 0 omeprazole 20 mg Tablet,Delayed Release (Dr/Ec) 20 mg PO BID RF: 0 Vitamin D3 2,000 unit Tablet 2,000 unit PO DAILY RF: 0 venlafaxine 75 mg Tablet Extended Release 24 Hr 75 mg PO DAILY RF: 0 [place] 3-6-9 1,200 mg Capsule 1 cap PO BID RF: 0 Changed Lasix 40 mg Tablet 20 mg PO DAILY Qty: 0 RF: 0 Discontinued carvedilol 25 mg Tablet 25 mg PO BID RF: 0 Discharge Orders: Discharge Order (Routine); Ordered 04/01/19 Ordered By: Devyn Sim Other Ambulatory Orders: Holter Monitor (Routine) Timeframe: 3 Days Location: Determined by Patient Ordered By: Devyn Sim Referrals: Sam Fay DO [Family Provider] - Discharge Diet: Advance as tolerated Discharge Activity: Resume usual activity Activity Restrictions/Additional Instructions: -Please take carvedilol 6.25 mg p.o. 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
[2019-04-01 15:32] LABS: Glucose Point of Care 155 mg/dL (70-110)
--- NOTE | 2019-04-01 22:57 | USCV_ITS ---
Jose Armendariz Age: 78 Gender: M : 1940 Exam Date: 04/01/2019 06:16 Ordering Phys: Meenakshi Yeboah MD Technologist: Del Alarcon Exam Location: [facility] [place] Indication: SYNCOPE BP: 126 / 70 HR: 85 Rhythm: Sinus Technical Quality: Adequate MEASUREMENTS (Male / Female) Normal Values 2D ECHO LV Diastolic Diameter PLAX 5.7 cm 4.2 - 5.9 / 3.9 - 5.3 cm LV Systolic Diameter PLAX 3.3 cm IVS Diastolic Thickness 0.8 cm 0.6 - 1.0 / 0.6 - 0.9 cm IVS Systolic Thickness 1.3 cm LVPW Diastolic Thickness 1.3 cm 0.6 - 1.0 / 0.6 - 0.9 cm LVPW Systolic Thickness 1.3 cm LVOT Diameter 2.0 cm LV Ejection Fraction 2D Teich 72.5 % LV Ejection Fraction MOD 2C 47.9 % LV Ejection Fraction 2C AL 48.3 % LA Diameter 4.3 cm LA Width 4.6 cm LA Height 5.3 cm RA Width 4.3 cm RA Height 4.6 cm Aorta at Sinotubular Diameter 3.3 cm M-MODE LV Diastolic Diameter MM 5.7 cm 4.2 - 5.9 / 3.9 - 5.3 cm LV Systolic Diameter MM 3.7 cm LV Ejection Fraction MM Teich 63.3 % IVS Diastolic Thickness MM 0.9 cm 0.6 - 1.0 / 0.6 - 0.9 cm IVS Systolic Thickness MM 1.4 cm LVPW Diastolic Thickness MM 1.2 cm 0.6 - 1.0 / 0.6 - 0.9 cm LVPW Systolic Thickness MM 0.0 cm RV Diastolic Diameter MM 1.8 cm Aortic Annulus Diameter 3.9 cm LA Ao Ratio MM 1.1 MV E Point Septal Separation 1.1 cm DOPPLER AV Peak Velocity 124.0 cm/s LVOT Peak Velocity 76.0 cm/s AV Area Cont Eq vti 2.8 cm squared AV Area Cont Eq pk 1.9 cm squared MV Area PHT 5.0 cm squared Mitral E to A Ratio 1.6 MV E' Velocity 11.0 cm/s Mitral E to MV E' Ratio 15.3 Mitral E to LV E' Lateral Ratio 11.9 Mitral E to LV E' Septal Ratio 21.7 TR Peak Velocity 153.0 cm/s TR Peak Gradient 9.4 mmHg TV Peak E Velocity 93.0 cm/s Right Atrial Pressure 3.0 mmHg Pulmonary Artery Systolic Pressu 12.4 mmHg FINDINGS Left Ventricle Normal left ventricular cavity size. Normal left ventricular systolic function. No regional wall motion abnormalities. Left ventricular ejection fraction is estimated at 63 %. In the presence of atrial fibrillation diastolic function cannot be assessed accurately. Right Ventricle The right ventricle is normal in size and function. Right Atrium The right atrium is normal in size. Left Atrium Mildly increased left atrial size. Mitral Valve Moderately thickened mitral valve. No mitral valve stenosis. Trace mitral valve regurgitation. Aortic Valve Moderate aortic valve calcification. No aortic valve stenosis. Trace aortic valve regurgitation. Tricuspid Valve Structurally normal tricuspid valve without significant stenosis or regurgitation. Pulmonary artery systolic pressure is normal. Pulmonic Valve Structurally normal pulmonic valve without significant stenosis. There is no pulmonic regurgitation. Pericardium Normal pericardium without effusion. Aorta Normal ascending aorta dimension. CONCLUSIONS 1-Normal left ventricular cavity size. Normal left ventricular systolic function. No regional wall motion abnormalities. Left ventricular ejection fraction is estimated at 63 %. In the presence of atrial fibrillation diastolic function cannot be assessed accurately. 2-Moderate aortic valve calcification. No aortic valve stenosis. Trace aortic valve regurgitation. 3-Moderately thickened mitral valve. No mitral valve stenosis. Trace mitral valve regurgitation. 4-Pulmonary artery systolic pressure is within normal limits. 5-There is no pericardial effusion. 6-No significant change since the prior echocardiogram study of 01/03/2018. Meenakshi Eden MD (Electronically Signed) Final Date: 01 April 2019 14:37 S
--- NOTE | 2019-04-01 22:57 | USCV_ITS ---
Jose Armendariz Age: 78 Gender: M : 1940 Exam Date: 04/01/2019 06:31 Ordering Phys: Meenakshi Yeboah MD Technologist: Del Alarcon Exam Location: [facility] – [place] Indication: SYNCOPE Risk Factors: None Previous Vascular Surgery: Right Brachial BP: / Left Brachial BP: / Right Left Velocity (cm/s) Spectral Plaque Velocity (cm/s) Spectral Plaque Syst/Diast Broadening Syst/Diast Broadening 63.90/ 15.40 Prox CCA 81.50 / 17.70 72.80/ 13.20 Mid CCA 88.70 / 15.10 40.80/ 13.20 Distal CCA 50.00 / 9.20 54.60/ 7.20 Prox ICA 48.20 / 14.00 63.80/ 17.10 Mid ICA 55.90 / 12.50 68.40/ 18.40 Distal ICA 56.90 / 16.40 99.20 ECA 80.80 0.94 ICA/CCA 0.64 Antegrade Vertebral Antegrade 30.20/ 3.90 cm/s 24.60/ 7.20 cm/s Tri Subclavian Tri 50.00 59.30 FINDINGS Comparison:. 01/25/19. Diffuse bilateral scattered calcified plaque and intimal thickening throughout the common carotid arteries and extending through the bifurcation. No significant elevation of systolic or diastolic velocities. Mild tortuosity of arteries. Bilateral antegrade vertebral arteries. CONCLUSIONS Bilateral ICA stenosis less than 50%. No interval change in stenosis since prior exam. Diffuse mixed calcified plaque and intimal thickening. Dr. Mali Hassan DO (Electronically Signed) Final Date: 01 April 2019 07:48 S
== END 2019-04-01 16:06 | disposition home or self-care (01) ==
LOC: ER 22:23 → CSU 22:44
PROVIDERS: Admitting Provider Internal Medicine; Emergency Provider Emergency Medicine; Family Provider Emergency Medicine Emergency Medical Services; Visit Provider Family Medicine
DX: R55 Syncope and collapse (principal); E11.22 Type 2 diabetes mellitus with diabetic chronic kidney disease; I13.0 Hypertensive heart and chronic kidney disease with heart failure and stage 1 through stage 4 chronic kidney disease, or unspecified chronic kidney disease; N18.9 Chronic kidney disease, unspecified; I50.9 Heart failure, unspecified; Z99.2 Dependence on renal dialysis; Z79.82 Long term (current) use of aspirin; I25.10 Atherosclerotic heart disease of native coronary artery without angina pectoris; Z95.1 Presence of aortocoronary bypass graft; Z82.49 Family history of ischemic heart disease and other diseases of the circulatory system; Z87.891 Personal history of nicotine dependence
CPT/HCPCS: 12345; 36415; 36416; 70450; 71045; 80048; 80053; 81001; 82962; 83735; 83880; 84443; 84484; 85025; 85378; 93005; 93306; 93880; 96360; 96361; 96372; 97116; 97162; 99282; 99285; G0378; J1644; J1815; J7030

== ENCOUNTER 2019-07-04 12:28 | Emergency (ER) | payer OTHER, MEDICARE, SELFPAY ==
[2019-07-04 12:32] VITALS: BP 177/117; PULSE 86; RESP 18; TEMP 36.8; O2SAT 95; BMI 32.5
--- NOTE | 2019-07-04 12:44 | XR_ITS ---
WS: [id number] RIGHT FOOT: 3 VIEW(S) TECHNIQUE: AP, oblique and lateral. HISTORY: injury COMPARISON: None available. No acute fracture or dislocation. Advanced degenerative changes at the first metatarsophalangeal joint. Hammertoe deformities. No fract ure is identified. No soft tissue abnormality or bone destruction. XR/XR foot RT min 3V* [id number] IMPRESSION: Degenerative changes at the first metatarsophalangeal joint and hammertoe defor mities. No acute fracture is identified.
--- NOTE | 2019-07-04 13:14 | ED_ITS ---
HPI - Extremity Problem General: Chief complaint: Extremity Injury, Lower Stated complaint: right foot pain/fall Time Seen by Provider: 07/04/19 13:04 History of Present Illness: HPI Narrative: Patient is a 78-year-old male who comes to the ED with right lower extremity pain. Patient has a past medical history of diabetes, heart disease, hypertension, CHF and CAD. Patient says last Thursday he was walking outside to get his mail and he was not wearing ap propriate shoes and his feet slid and he hit his right foot on some concrete. He has some abrasions on his toes and ever since then he has had some pain that comes and goes at the base of his third and fourth toe. Patient has been taking Tylenol for pain. He currently rates the right foot pain is 0 out of 10. He says the pain comes and goes. Patient was unsure when his last tetanus shot was and thinks it is probably been almost 10 years. Associated symptoms: Deny chest pain, fever(s) or rash Review of Systems Const: Denies: fever, chills or fatigue Eyes: Denies: change in vision or eye discomfort ENMT: Denies: throat pain, painful swallowing, nasal discharge or nasal congestion Card: Denies: chest pain, palpitations, edema, swelling of feet/ankles, shortness of breath on exertion or shortness of breath when lying down Resp: Denies: shortness of breath, productive cough or non-productive cough GI: Denies: abdominal pain, nausea, vomiting, diarrhea, constipation or blood in stool : Denies: flank pain, difficulty urinating, painful urination or blood in urine Musc: Reports: extremity pain (right foot); Denies: neck pain, back pain or extremity swelling Skin/Breast: Denies: rash or new lesion Neuro: Denies: headache, numbness in extremities or weakness in extremities PFSH ED PFSH: Medical History CAD (coronary artery disease) Carotid bruit CHF (congestive heart failure) Diabetes mellitus Heart disease Hypertension Hypomagnesemia Pulmonary edema Renal failure Syncope Urolithiasis Surgical History H/O mitral valve replacement Hx of CABG S/P ureteral stent placement Family History Other Hyperlipidemia Hypertension Social History Smoking and tobacco status: former smoker Alcohol intake: never Marital status: Physical Exam Const: COMMON NORMALS: no apparent distress, oriented x3 and alert GENERAL APPEARANCE: cooperative and comfortable; not in distress HENMT: COMMON NORMALS: normocephalic HEAD & SCALP: normocephalic MOUTH: oral and palatal mucosa normal THROAT: posterior oropharynx normal and uvula midline Eye: COMMON NORMALS: PERRL PUPIL: Yes PERRL Neck/C-Spine: COMMON NORMALS: supple GENERAL: Yes normal visual inspection Resp: COMMON NORMALS: normal respiratory effort, no retractions, no use of accessory muscles and clear to auscultation bilaterally AUSCULTATION: clear to auscultation bilaterally Cardio: COMMON NORMALS: regular rate, regular rhythm, S1 normal heart sound, S2 normal heart sound, no gallops, no clicks, no murmurs and peripheral pulses 2+ throughout RATE: regular rate RHYTHM: regular rhythm HEART SOUNDS: S1 normal and S2 normal PERIPHERAL PULSES: pulses 2+ throughout GI: COMMON NORMALS: normal to inspection, nondistended, normoactive bowel sounds, soft to palpation, non-tender and no masses PALPATION: Yes soft : COMMON NORMALS: Yes no CVA tenderness BLADDER/KIDNEY EXAM: Yes no CVA tenderness Back/Pelvis: COMMON NORMALS: no CVA tenderness Extremity: RIGHT LOWER EXTREMITY: Yes foot & digits Right foot and digits: Yes inspection (Multiple abrasions on third and fourth toe. Surrounding erythema but no warmth.), Yes ROM (full) and Yes neurovascular exam (intact) Neuro: COMMON NORMALS: oriented x3 and moves all extremities SENSORIUM/ORIENTATION: Yes alert Skin: TRAUMA: abrasion (Patient has multiple abrasions on right foot in particular third and fourth toes. The abrasions have surrounding erythema. No warmth or drainage.) Course Vital Signs: Vital signs: Vital Signs Temperature 98.2 F 07/04/19 12:32 Pulse Rate 82 07/04/19 14:51 Respiratory Rate 17 07/04/19 14:51 Blood Pressure 133/74 07/04/19 14:51 Pulse Oximetry 96 07/04/19 14:51 MDM - Extremity (Nontraumatic) MDM Narrative: Medical decision making narrative: Patient is a 78-year-old male who comes to the ED with right foot pain and abrasions. Patient has a past medical history of diabetes, hypertension, heart disease, heart failure and CAD. Physical exam shows multiple abrasions on third and fourth digit of toe. There was some surrounding erythema but no warmth. X-ray of right foot showed no acute fractures. Patient was put on a prophylactic antibiotic to prevent any infection from abrasions. I told him to follow-up with his PCP in 5 to 7 days for reevaluation. I discussed with him the signs of infection to look for such as increased redness, warmth, tenderness and drainage around abrasions. I told to take Tylenol for pain. Patient understood and agreed with plan. Imaging Data^: Xray Ortho: Attestation: I personally reviewed and interpreted this imaging study as follows: Radiologist's impression: [address] [address] XRay Report Signed Patient: Jose Armendariz Unit #: [id number] : 1940 Age/Sex: 78 / M ADM Date: 07/04/19 Loc: ER Room/Bed: Attending Dr: Ordering Provider/Ordering MD: Le Rousseau MD Date of Service: 07/04/19 Procedure(s): XR foot RT min 3V* 90069 Accession Number(s): [id number] Report Number: [id number] WS: [id number] RIGHT FOOT: 3 VIEW(S) TECHNIQUE: AP, oblique and lateral. HISTORY: injury COMPARISON: None available. No acute fracture or dislocation. Advanced degenerative changes at the first metatarsophalangeal joint. Hammertoe deformities. No fracture is identified. No soft tissue abnormality or bone destruction. XR/XR foot RT min 3V* [id number] IMPRESSION: Degenerative changes at the first metatarsophalangeal joint and hammertoe deformities. No acute fracture is identified. Dictated By: Mali Hassan DO Signed By: Mali Hassan DO Signed Date/Time: 07/04/191417 DD/ 16 Discharge Plan Discharge Patient Disposition: Home, Self-Care Clinical Impression: Abrasion foot/toe Qualifiers: Encounter type: initial encounter Laterality: right Qualified Code(s): S90.811A - Abrasion, right foot, initial encounter Condition: Stable Prescriptions: New cephalexin 500 mg capsule 500 mg PO BID 5 Days Qty: 10 RF: 0 No Action atorvastatin 80 mg Tablet 80 mg PO QPM RF: 0 acetaminophen [Tylenol] 325 mg Tablet 325 mg PO QID PRN (Reason: Pain) RF: 0 sennosides-docusate sodium [Senna-S] 8.6-50 mg Tablet 1 tab-cap PO DAILY PRN (Reason: Constipation) RF: 0 aspirin [Aspir-81] 81 mg Tablet,Delayed Release (Dr/Ec) 81 mg PO DAILY RF: 0 magnesium oxide [MagOx] 400 mg (241.3 mg magnesium) Tablet 400 mg PO DAILY RF: 0 tamsulosin [Flomax] 0.4 mg Capsule 0.4 mg PO DAILY RF: 0 calcium polycarbophil 625 mg Tablet 1,250 mg PO DAILY RF: 0 docusate sodium 100 mg Capsule 100 mg PO TID PRN (Reason: Constipation) RF: 0 insulin aspart U-100 [Novolog Flexpen U-100 Insulin] 100 unit/mL (3 mL) Insulin Pen 0 unit SUBCUT TID RF: 0 omeprazole 20 mg Tablet,Delayed Release (Dr/Ec) 20 mg PO BID RF: 0 cholecalciferol (vitamin D3) [Vitamin D3] 2,000 unit Tablet 2,000 unit PO DAILY RF: 0 venlafaxine 75 mg Tablet Extended Release 24 Hr 75 mg PO DAILY RF: 0 [place] 3-6-9 1,200 mg Capsule 1 cap PO BID RF: 0 furosemide [Lasix] 40 mg Tablet 20 mg PO DAILY Qty: 0 RF: 0 carvedilol 6.25 mg Tablet 6.25 mg PO BID RF: 0 Lantus U-100 Insulin See Rx Instructions .ROUTE .COMPLEX RF: 0 Discharge Orders: Discharge Order (Routine); Ordered 07/04/19 Ordered By: Gurpreet Tyson Referrals: Sam Fay DO [Primary Care Provider] - Discharge Diet: Regular Discharge Activity: Increase activity as tolerated Patient Instructions: Cellulitis (ED), Abrasion (ED) Activity Restrictions/Additional Instructions: Follow-up with your PCP in 7 days for reevaluation. Take full course of antibiotics as prescribed. Take Tylenol for pain. Watch for signs of worsening infection such as increased redness, warmth and drainage around abrasions on right foot. Return to the ED if symptoms worsen. Discharge Date/Time: 07/04/19 14:53 Coding Level of Care Code ED Chip Unloader for Nathaniel Alicea Exam Comprehensive
--- NOTE | 2019-07-04 14:31 | PC.NURSE ---
REPORT TO EVARISTO Medina RN CARE TURNED OVER
[2019-07-04] MEDS: tetanus-diphtheria tox (adult) 0.5 mL SDV IM (14:43)
[2019-07-04 14:51] VITALS: BP 133/74; PULSE 82; RESP 17; O2SAT 96
== END 2019-07-04 14:53 | disposition home or self-care (01) ==
PROVIDERS: Emergency Provider Physician Assistant; Family Provider Emergency Medicine Emergency Medical Services; PCP Emergency Medicine Emergency Medical Services
DX: S90.811A Abrasion, right foot, initial encounter (principal); W22.09XA Striking against other stationary object, initial encounter; Z79.82 Long term (current) use of aspirin; Z79.4 Long term (current) use of insulin; I11.0 Hypertensive heart disease with heart failure; I50.9 Heart failure, unspecified; I25.10 Atherosclerotic heart disease of native coronary artery without angina pectoris; E11.9 Type 2 diabetes mellitus without complications; Z87.891 Personal history of nicotine dependence; Z23 Encounter for immunization; Z95.1 Presence of aortocoronary bypass graft
CPT/HCPCS: 12345; 73630; 90471; 90714; 99281; 99283

== ENCOUNTER → 2019-11-17 13:02 | Outpatient (BNVA) | payer OTHER, MEDICARE, SELFPAY | PROVIDERS: Family Provider Emergency Medicine Emergency Medical Services; PCP Emergency Medicine Emergency Medical Services; Referring Provider Emergency Medicine Emergency Medical Services; Visit Provider Licensed Practical Nurse | DX: R20.0 Anesthesia of skin (principal); R20.2 Paresthesia of skin; R29.898 Other symptoms and signs involving the musculoskeletal system | CPT/HCPCS: 99204 ==

== ENCOUNTER → 2020-01-23 14:16 | Outpatient (BNVA) | payer OTHER, MEDICARE, SELFPAY | PROVIDERS: Family Provider Emergency Medicine Emergency Medical Services; PCP Emergency Medicine Emergency Medical Services; Referring Provider Licensed Practical Nurse; Visit Provider Specialist | DX: R20.0 Anesthesia of skin; R20.2 Paresthesia of skin; R29.898 Other symptoms and signs involving the musculoskeletal system | CPT/HCPCS: 95860; 95907 ==

== ENCOUNTER → 2020-02-14 13:00 | Outpatient (BNVA) | payer OTHER, SELFPAY | PROVIDERS: Family Provider Emergency Medicine Emergency Medical Services; PCP Emergency Medicine Emergency Medical Services; Referring Provider Licensed Practical Nurse; Visit Provider Specialist | DX: R20.0 Anesthesia of skin (principal); R20.2 Paresthesia of skin; G62.9 Polyneuropathy, unspecified; Z87.891 Personal history of nicotine dependence | CPT/HCPCS: 95909 ==

== ENCOUNTER → 2020-02-20 15:39 | Outpatient (BNVA) | payer OTHER, SELFPAY | PROVIDERS: Family Provider Emergency Medicine Emergency Medical Services; PCP Emergency Medicine Emergency Medical Services; Referring Provider Licensed Practical Nurse; Visit Provider Specialist | DX: R20.0 Anesthesia of skin (principal); R20.2 Paresthesia of skin; E11.42 Type 2 diabetes mellitus with diabetic polyneuropathy; I50.9 Heart failure, unspecified; Z87.891 Personal history of nicotine dependence | CPT/HCPCS: 95860; 99212 ==

== ENCOUNTER 2020-02-27 18:46 | Emergency (ER) | payer OTHER, SELFPAY ==
--- NOTE | 2020-02-27 18:50 | XRR_ITS ---
PROCEDURE INFORMATION: Exam: XR Chest, 1 View Exam date and time: 02/27/2020 8:46 PM Age: 79 years old Clinical indication: Shortness of breath; Additional info: SOB TECHNIQUE: Imaging protocol: XR of the chest Views: 1 view. COMPARISON: CR XR chest 1V portable [id number] 03/31/2019 8:53 PM FINDINGS: Lungs: Mild interstitial prominence without acute airspace disease. Pleural space: No pleural effusion. Heart/Mediastinum: Borderline cardiomegaly. Bones/joints: Median sternotomy. Degenerative change. XR/XR chest 1V portable [id number] IMPRESSION: Borderline cardiomegaly and mild interstitial prominence.
[2020-02-27 19:28] VITALS: BP 115/57; PULSE 92; RESP 20; TEMP 36.9; O2SAT 94; BMI 35.2
--- NOTE | 2020-02-28 00:50 | ECG_ITS ---
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 Measurements Intervals [place] Rate: 94 P: ID: QRS: 66 QRSD: 115 T: -22 QT: 348 QTc: 437 Interpretive Statements Sinus rhythm with supraventricular premature complexes INFERIOR MYOCARDIAL INFARCTION , OF INDETERMINATE AGE [40+ ms Q WAVE AND/OR ST/T ABNORMALITY IN II/aVF] Compared to ECG 04/01/2019 04:05:30 No signifincant changes Electronically Signed On 02-28-2020 9:50:56 EGGS INSPECTOR by Alexi Orona M.D. [id number]
--- NOTE | 2020-02-28 02:08 | CTR_ITS ---
PROCEDURE INFORMATION: Exam: CT Head Without Contrast Exam date and time: 02/28/2020 3:14 AM Age: 79 years old Clinical indication: Syncope and collapse TECHNIQUE: Imaging protocol: Computed tomography of the head without contrast. Radiation optimization: All CT scans at this facility use at least one of these dose optimization techniques: automated exposure control; mA and/or kV adjustment per patient size (includes targeted exams where dose is matched to clinical indication); or iterative reconstruction. COMPARISON: CT head wo con* [id number] 03/31/2019 9:07 PM RADIATION DOSE METRICS: Total DLP (mGy-cm): 763.48 FINDINGS: Brain: There is moderate hypodensity of the periventricular white matter. This is nonspecific, but a likely cause is small vessel ischemic disease. No abnormal intra-axial or extra-axial fluid collections are identified. There is no midline shift. No intracranial hemorrhage identified. Ventricles: The ventricles and sulci are moderately and diffusely prominent, compatible with global brain volume loss. Bones/joints: Unremarkable as visualized. Sinuses: Visualized sinuses are unremarkable. No fluid levels. Mastoid air cells: Visualized mastoid air cells are well aerated. Soft tissues: Unremarkable. CT/CT head wo con* [id number] IMPRESSION: 1. No acute intracranial process identified. Radiation Dose CTDIVOL = (mGy): DLP = 763.48 (mGy-cm)
[2020-02-28 02:27] VITALS: BP 148/84; PULSE 82; RESP 18; O2SAT 95
[2020-02-28 02:34] LABS: Basophils % 0.2 %; Eosinophils # 0.1 10^3/uL (0.0-0.8); Eosinophils % 0.6 %; Hematocrit 37.1 % (42.0-52.0); Lymphocytes # 1.1 10^3/uL (0.8-4.8); Lymphocytes % 7.6 %; Mean Corpuscular HGB Conc 32.3 g/dL (30.0-36.0); Mean Corpuscular Hemoglobin 30.4 pg (28.0-34.0); Mean Corpuscular Volume 93.9 fL (80-94); Mean Platelet Volume 9.2 fL (7.4-10.4); Monocytes % 7.1 %; Neutrophils # 11.63 10^3/uL (1.8-7.7); Neutrophils % 83.9 %; Nucleated Red Blood Cells % 0 %; Platelet Count 182 10^3/cmm (130-400); Red Blood Count 3.95 10^6/uL (4.1-5.3); Red Cell Distribution Width 14.2 % (12.1-15.1); White Blood Count 13.9 10^3/uL (4.0-10.0)
--- NOTE | 2020-02-28 02:46 | ED_ITS ---
HPI - Syncope General: Chief Complaint: Syncope Stated Complaint: SOB, SYNCOPE Time Seen by Provider: 02/28/20 01:54 Source: patient Mode of arrival: ambulatory Limitations: no limitations History of Present Illness: HPI narrative: 79-year-old male states of last 2 to 3 weeks he has been having increasing dyspnea. He states he has had shortness of breath with any activity and is felt like he is going to pass out at times. He denies any fever. He denies any pain currently states he feels improved currently. Denies any vomiting or diarrhea. States it seems to be worse with activity improved with rest. No recent long trips or cancer. Associated symptoms: Deny abdominal pain, fever(s), headache(s) or nausea Review of Systems Const: Denies: fever(s), chills, body aches or change in appetite Eyes: Denies: blurry vision or eye discomfort ENMT: Denies: throat pain or dental pain Card: Reports: syncope Resp: Reports: dyspnea GI: Denies: abdominal pain, nausea, vomiting or diarrhea : Denies: dysuria Musc: Denies: neck pain or back pain Skin/Breast: Denies: rash Neuro: Denies: headache(s) Psych: Denies: depression Harsh/Lymph: Denies: easy bruising All/Imm: Denies: urticaria PFSH ED PFSH: Medical History (Updated 02/28/20 @ 04:54 by Le Rousseau MD) CAD (coronary artery disease) Carotid bruit CHF (congestive heart failure) Diabetes mellitus Heart disease Hypertension Hypomagnesemia Leg weakness, bilateral Numbness and tingling of both legs Pulmonary edema Renal failure Syncope Urolithiasis Surgical History H/O mitral valve replacement Hx of CABG S/P ureteral stent placement Family History Other Hyperlipidemia Hypertension Social History Smoking and tobacco status: former smoker Alcohol intake: never Lives independently: Yes Marital status: / Current occupational status: retired History of recent travel: No Physical Exam Const: COMMON NORMALS: no acute distress, patient oriented x3 and healthy appearing HENMT: COMMON NORMALS: normocephalic and atraumatic HEAD & SCALP: normocephalic and atraumatic Eye: COMMON NORMALS: Equal, round and reactive pupils present and EOMs intact bilaterally PUPIL: Yes Equal, round and reactive pupils present Neck/C-Spine: COMMON NORMALS: full ROM and supple Chest: COMMONS NORMALS: normal inspection of the chest and normal palpation of entire chest wall Resp: COMMON NORMALS: normal respiratory effort, No retractions, No use of accessory muscles and clear to auscultation bilaterally AUSCULTATION: clear to auscultation bilaterally Cardio: COMMON NORMALS: regular rate, regular rhythm and No murmurs present (Cardio) RATE: regular rate RHYTHM: regular rhythm GI: COMMON NORMALS: Normal to inspection, nondistended, normoactive bowel s ounds present, Soft to palpation, non-tender and no masses PALPATION: Yes Soft to palpation Extremity: COMMON NORMALS: normal to inspection and full ROM Neuro: COMMON NORMALS: patient oriented x3, moves all extremities and no focal motor deficits Psych: COMMON NORMALS: mental status grossly normal, Normal thought process present and cooperative THOUGHT PROCESS: Normal thought process present Skin: COMMON NORMALS: no rashes or lesions noted and no wounds GENERAL SKIN EXAM: no rashes or lesions noted Course Vital Signs: Vital signs: Vital Signs Temperature 98.4 F 02/27/20 19:28 Pulse Rate 82 02/28/20 02:27 Respiratory Rate 18 02/28/20 02:27 Blood Pressure 153/92 02/28/20 03:26 Pulse Oximetry 95 02/28/20 02:27 MDM - Syncope MDM Narrative: Medical decision making narrative: Jose presents here with near syncopal events over the last few weeks along with dyspnea. Patient CT showed no signs of pulmonary embolism. Repeat troponin showed no delta troponin. He is improved here and is stable for discharge. He has no signs of acute coronary syndrome. He is to follow-up his PCP in 2 to 4 days. He is to return to ER if he has any increasing shortness of breath or chest pain. He understands and agrees to plan. Lab Data: Labs: Lab Results 02/28/20 02/28/20 02/28/20 Range/Units 02:21 02:21 02:21 WBC 13.9 H (4.0-10.0) 10^3/ uL RBC 3.95 L (4.1-5.3) 10^6/u L Hgb 12.0 (11.7-16.6) g/dL Hct 37.1 L (42.0-52.0) % MCV 93.9 (80-94) fL MCH 30.4 (28.0-34.0) pg MCHC 32.3 (30.0-36.0) g/dL RDW 14.2 (12.1-15.1) % Plt Count 182 (130-400) 10^3/c mm MPV 9.2 (7.4-10.4) fL Neut % (Auto) 83.9 % Lymph % (Auto) 7.6 % [place] % (Auto) 7.1 % Eos % (Auto) 0.6 % Baso % (Auto) 0.2 % Neut # (Auto) 11.63 H (1.8-7.7) 10^3/u L Lymph # (Auto) 1.1 (0.8-4.8) 10^3/u L [place] # (Auto) 1.0 H (0.2-0.9) 10^3/u L Eos # (Auto) 0.1 (0.0-0.8) 10^3/u L Baso # (Auto) 0.0 (0.0-0.1) 10^3/u L Nucleated RBC % (a uto) 0 % Nucleated RBCs # 0.0 /100WBC D-Dimer (0-0.59) ug/mIFE U Sodium 133 L (136-145) mmol/L Potassium 4.4 (3.5-5.1) mmol/L Chloride 99 (98-107) mmol/L Carbon Dioxide 24 (22-29) mmol/L Anion Gap 14.4 (5-19) BUN 38 H (8-23) mg/dL Creatinine 1.8 H (0.7-1.2) mg/dL GFR Calculation Not Reportable Glucose 183 H (65-115) mg/dL Calculated Osmolal ity 290 (285-295) mOsm/k g Calcium 9.0 (8.5-10.5) mg/dL Total Bilirubin 0.4 (0.15-1.2) mg/dL AST 17 (0-40) U/L ALT 24 (0-41) U/L Alkaline Phosphata se 81 (40-130) IU/L Troponin T Baselin e 36 H (0-15) ng/L Troponin T 120 Min [place] (0-15) ng/L Delta Troponin T (0-10) ABS# NT-Pro-B Natriuret Pep 2091 H (0-450) pg/mL Total Protein 6.1 L (6.6-8.7) g/dL Albumin 3.7 (3.5-5.2) g/dL Globulin 2.4 (1.3-4.6) g/dL 02/28/20 02/28/20 02/28/20 Range/Units 02:21 04:20 04:20 WBC (4.0-10.0) 10^3/ uL RBC (4.1-5.3) 10^6/u L Hgb (11.7-16.6) g/dL Hct (42.0-52.0) % MCV (80-94) fL MCH (28.0-34.0) pg MCHC (30.0-36.0) g/dL RDW (12.1-15.1) % Plt Count (130-400) 10^3/c mm MPV (7.4-10.4) fL Neut % (Auto) % Lymph % (Auto) % [place] % (Auto) % Eos % (Auto) % Baso % (Auto) % Neut # (Auto) (1.8-7.7) 10^3/u L Lymph # (Auto) (0.8-4.8) 10^3/u L [place] # (Auto) (0.2-0.9) 10^3/u L Eos # (Auto) (0.0-0.8) 10^3/u L Baso # (Auto) (0.0-0.1) 10^3/u L Nucleated RBC % (a uto) % Nucleated RBCs # /100WBC D-Dimer 1.40 H (0-0.59) ug/mIFE U Sodium (136-145) mmol/L Potassium (3.5-5.1) mmol/L Chloride (98-107) mmol/L Carbon Dioxide (22-29) mmol/L Anion Gap (5-19) BUN (8-23) mg/dL Creatinine (0.7-1.2) mg/dL GFR Calculation Glucose (65-115) mg/dL Calculated Osmolal ity (285-295) mOsm/k g Calcium (8.5-10.5) mg/dL Total Bilirubin (0.15-1.2) mg/dL AST (0-40) U/L ALT (0-41) U/L Alkaline Phosphata se (40-130) IU/L Troponin T Baselin e (0-15) ng/L Troponin T 120 Min [place] 38.53 H (0-15) ng/L Delta Troponin T 2.53 (0-10) ABS# NT-Pro-B Natriuret Pep 2065 H (0-450) pg/mL Total Protein (6.6-8.7) g/dL Albumin (3.5-5.2) g/dL Globulin (1.3-4.6) g/dL Imaging Data^: CT Head: Attestation: I personally reviewed and interpreted this imaging study as follows: Radiologist's impression: [address] [address] [address] Scan Report Signed Patient: Jose Armendariz Unit #: [id number] : 1940 Age/Sex: 79 / M ADM Date: 02/27/20 Loc: ER Room/Bed: Attending Dr: Ordering Provider/Ordering MD: Le Rousseau MD Date of Service: 02/28/20 Procedure(s): CT head wo con* [id number] Accession Number(s): [id number] Report Number: [id number] PROCEDURE INFORMATION: Exam: CT Head Without Contrast Exam date and time: 02/28/2020 3:14 AM Age: 79 years old Clinical indication: Syncope and collapse TECHNIQUE: Imaging protocol: Computed tomography of the head without contrast. Radiation optimization: All CT scans at this facility use at least one of these dose optimization techniques: automated exposure control; mA and/or kV adjustment per patient size (includes targeted exams where dose is matched to clinical indication); or iterative reconstruction. COMPARISON: CT head wo con* [id number] 03/31/2019 9:07 PM RADIATION DOSE METRICS: Total DLP (mGy-cm): 763.48 FINDINGS: Brain: There is moderate hypodensity of the periventricular white matter. This is nonspecific, but a likely cause is small vessel ischemic disease. No abnormal intra-axial or extra-axial fluid collections are identified. There is no midline shift. No intracranial hemorrhage identified. Ventricles: The ventricles and sulci are moderately and diffusely prominent, compatible with global brain volume loss. Bones/joints: Unremarkable as visualized. Sinuses: Visualized sinuses are unremarkable. No fluid levels. Mastoid air cells: Visualized mastoid air cells are well aerated. Soft tissues: Unremarkable. CT/CT head wo con* [id number] IMPRESSION: 1. No acute intracranial process identified. EKG Data^: EKG 1: Attestation: I personally reviewed and interpreted this EKG as follows: EKG interpretation date: 02/28/20 EKG interpretation time: 02:08 Interpretation: afib hr [address] or t wave abnormalities qrs 115 qtc 400 Discharge Plan Discharge Patient Disposition: Home Clinical Impression: Near syncope Dyspnea Qualifiers: Dyspnea type: unspecified Qualified Code(s): R06.00 - Dyspnea, unspecified Condition: Stable Prescriptions: No Action atorvastatin 80 mg Tablet 80 mg PO QPM RF: 0 acetaminophen [Tylenol] 325 mg Tablet 325 mg PO QID PRN (Reason: Pain) RF: 0 sennosides-docusate sodium [Senna-S] 8.6-50 mg Tablet 1 tab-cap PO DAILY PRN (Reason: Constipation) RF: 0 aspirin [Aspir-81] 81 mg Tablet,Delayed Release (Dr/Ec) 81 mg PO DAILY RF: 0 magnesium oxide [MagOx] 400 mg (241.3 mg magnesium) Tablet 400 mg PO DAILY RF: 0 tamsulosin [Flomax] 0.4 mg Capsule 0.4 mg PO DAILY RF: 0 calcium polycarbophil 625 mg Tablet 1,250 mg PO DAILY RF: 0 docusate sodium 100 mg Capsule 100 mg PO TID PRN (Reason: Constipation) RF: 0 insulin aspart U-100 [Novolog Flexpen U-100 Insulin] 100 unit/mL (3 mL) Insulin Pen 0 unit SUBCUT TID RF: 0 omeprazole 20 mg Tablet,Delayed Release (Dr/Ec) 20 mg PO BID RF: 0 venlafaxine 75 mg Tablet Extended Release 24 Hr 75 mg PO DAILY RF: 0 [place] 3-6-9 1,200 mg Capsule 1 cap PO BID RF: 0 furosemide [Lasix] 40 mg Tablet 20 mg PO DAILY Qty: 0 RF: 0 cholecalciferol (vitamin D3) [Vitamin D3] 50 mcg (2,000 unit) tablet 2,000 unit PO DAILY RF: 0 carvedilol 6.25 mg Tablet 6.25 mg PO BID RF: 0 Lantus U-100 Insulin See Rx Instructions .ROUTE .COMPLEX RF: 0 Discharge Orders: Discharge ED (Routine); Ordered 02/28/20 Ordered By: Le Rousseau Referrals: Sam Fay DO [Primary Care Provider] - 1-3 days Discharge Diet: Advance as tolerated Discharge Activity: Resume usual activity Patient Instructions: Dyspnea (ED), Near Syncope (ED) Coding Level of Care Code ED Backside Grinder for Nathaniel Fwd Exam Comprehensive
[2020-02-28 02:53] LABS: Troponin(5th) Baseline 36 ng/L (0-15)
--- NOTE | 2020-02-28 02:57 | CTR_ITS ---
PROCEDURE INFORMATION: Exam: CT Angiography Chest With Contrast Exam date and time: 02/28/2020 3:14 AM Age: 79 years old Clinical indication: Dyspnea; Prior surgery; Surgery date: 6+ months; Surgery type: Cabg; Additional info: SOB TECHNIQUE: Imaging protocol: Computed tomographic angiography of the chest with intravenous contrast. 3D rendering (Not supervised by radiologist): MIP and/or 3D reconstructed images were created by the technologist. Radiation optimization: All CT scans at this facility use at least one of these dose optimization techniques: automated exposure control; mA and/or kV adjustment per patient size (includes targeted exams where dose is matched to clinical indication); or iterative reconstruction. Contrast material: VISI; Contrast volume: 95 ml; Contrast route: INTRAVENOUS (IV); COMPARISON: CT chest w con* [id number] 01/03/2018 10:45 AM RADIATION DOSE METRICS: Total DLP (mGy-cm): 642.05 FINDINGS: Pulmonary arteries: Normal. No pulmonary emboli. Aorta: Aortic calcifications are noted. No findings of aneurysm or mediastinal hemorrhage. Lungs: Calcified pulmonary granulomatous change. Pleural space: Unremarkable. No pneumothorax. No pleural effusion. Heart: Coronary calcifications are noted. Lymph nodes: Mild mediastinal lymph node prominence . Bones/joints: Sternotomy wires are in place. Soft tissues: Unremarkable. CT/CT angio chest PE protcl [id number] IMPRESSION: No acute findings. Radiation Dose CTDIVOL = (mGy): DLP = 642.05 (mGy-cm)
[2020-02-28 03:01] LABS: Alanine Aminotransferase 24 U/L (0-41); Albumin Level 3.7 g/dL (3.5-5.2); Alkaline Phosphatase 81 IU/L (40-130); Anion Gap 14.4 (5-19); Aspartate Amino Transferase 17 U/L (0-40); Blood Urea Nitrogen 38 mg/dL (8-23); Carbon Dioxide 24 mmol/L (22-29); Chloride 99 mmol/L (98-107); Globulin 2.4 g/dL (1.3-4.6); Glucose 183 mg/dL (65-115); NT Pro B Type Natriuretic Pept 2091 pg/mL (0-450); Osmolality Calculated 290 mOsm/kg (285-295); Potassium 4.4 mmol/L (3.5-5.1); Sodium 133 mmol/L (136-145); Total Bilirubin 0.4 mg/dL (0.15-1.2); Total Protein 6.1 g/dL (6.6-8.7)
[2020-02-28 03:26] VITALS: BP 153/92
--- NOTE | 2020-02-28 03:28 | PC.NURSE ---
patient to ct
[2020-02-28 04:46] LABS: Troponin 5 2HR 38.53 ng/L (0-15); Troponin 5 2HR Delta 2.53 ABS# (0-10)
[2020-02-28 04:55] LABS: NT Pro B Type Natriuretic Pept 2065 pg/mL (0-450)
[2020-02-28 05:24] VITALS: BP 129/80; PULSE 110; RESP 18
== END 2020-02-28 05:00 | disposition home or self-care (01) ==
PROVIDERS: Emergency Provider Emergency Medicine; PCP Emergency Medicine Emergency Medical Services
DX: R55 Syncope and collapse (principal); R06.00 Dyspnea, unspecified; Z79.82 Long term (current) use of aspirin; Z79.4 Long term (current) use of insulin; I25.10 Atherosclerotic heart disease of native coronary artery without angina pectoris; I11.0 Hypertensive heart disease with heart failure; I50.9 Heart failure, unspecified; Z95.1 Presence of aortocoronary bypass graft; Z87.891 Personal history of nicotine dependence
CPT/HCPCS: 12345; 70450; 71045; 71275; 80053; 83880; 84484; 85025; 85378; 93005; 99282; 99284; Q9967

== ENCOUNTER → 2020-04-11 12:52 | Outpatient (BNVA) | payer OTHER, SELFPAY | PROVIDERS: PCP Emergency Medicine Emergency Medical Services; Visit Provider Specialist | DX: R55 Syncope and collapse (principal); R56.9 Unspecified convulsions; Z87.891 Personal history of nicotine dependence | CPT/HCPCS: 95816 ==

== ENCOUNTER 2020-06-14 13:02 | Outpatient (RCR) | payer OTHER, SELFPAY | END 2020-07-06 23:59 | disposition home or self-care (01) | LOC: PULRHB 13:02 | PROVIDERS: PCP Emergency Medicine Emergency Medical Services; Visit Provider Emergency Medicine Emergency Medical Services | DX: R06.02 Shortness of breath (principal) | CPT/HCPCS: 94618; G0424 ==

== ENCOUNTER 2020-07-07 06:00 | Outpatient (RCR) | payer OTHER, MEDICARE, SELFPAY | END 2020-08-06 23:59 | disposition home or self-care (01) | LOC: PULRHB 06:00 | PROVIDERS: PCP Emergency Medicine Emergency Medical Services; Visit Provider Emergency Medicine Emergency Medical Services | DX: R06.02 Shortness of breath (principal) | CPT/HCPCS: G0424 ==

== ENCOUNTER 2020-07-20 17:22 | Emergency (ER) | payer OTHER, MEDICARE, SELFPAY ==
[2020-07-20 17:51] VITALS: BP 178/90; PULSE 88; RESP 16; TEMP 36.7; O2SAT 93; BMI 34.9
[2020-07-20 18:33] VITALS: BP 186/95; PULSE 92; RESP 18; O2SAT 96
--- NOTE | 2020-07-20 18:33 | ECG_ITS ---
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 Measurements Intervals [place] Rate: 97 P: -33 LA: 218 QRS: -18 QRSD: 133 T: 79 QT: 366 QTc: 465 Interpretive Statements SINUS RHYTHM WITH FIRST DEGREE AV BLOCK RIGHT BUNDLE BRANCH BLOCK [120+ ms QRS DURATION, UPRIGHT V1, 40+ ms S IN I/aVL/V4/V5/V6] LEFT VENTRICULAR HYPERTROPHY AND ST-T CHANGE [VOLTAGE CRITERIA PLUS ST/T ABNORMALITY] Compared to ECG 02/28/2020 02:08:30 First degree AV block now present Right bundle-branch block now present Left ventricular hypertrophy now present ST (T wave) deviation now present Myocardial infarct finding no longer present Electronically Signed On 07-20-2020 21:47:09 CDT by Alexi Orona M.D. [id number] ca
--- NOTE | 2020-07-20 18:33 | CTR_ITS ---
PROCEDURE INFORMATION: Exam: CT Head Without Contrast Exam date and time: 07/20/2020 6:38 PM Age: 79 years old Clinical indication: Altered mental status/memory loss; Patient HX: AMS, weakness; Additional info: Symptoms of acute stroke TECHNIQUE: Imaging protocol: Computed tomography of the head without contrast. Radiation optimization: All CT scans at this facility use at least one of these dose optimization techniques: automated exposure control; mA and/or kV adjustment per patient size (includes targeted exams where dose is matched to clinical indication); or iterative reconstruction. Other technique: STROKE PROTOCOL was implemented. COMPARISON: No relevant prior studies available. RADIATION DOSE METRICS: Total DLP (mGy-cm): 996.09 FINDINGS: Brain: There is moderate cortical atrophy. Low-density changes in the white matter are consistent with nonspecific small vessel chronic ischemic change. There is no intracranial mass, hemorrhage or edema. Cerebral ventricles: No ventriculomegaly. Bones/joints: Unremarkable. No acute fracture. Paranasal sinuses: Visualized sinuses are unremarkable. No fluid levels. Mastoid air cells: Visualized mastoid air cells are well aerated. Soft tissues: Unremarkable. CT/CT head wo con* [id number] IMPRESSION: No acute intracranial finding. ASSESSMENT: ASPECTS (Amy Stroke Program Early CT Score) is 10. Radiation Dose CTDIVOL = (mGy): DLP = 996.09 (mGy-cm)
[2020-07-20 19:02] LABS: Urine Appearance Clear (CLEAR); Urine Color Yellow (Yellow); pH Urine 5 (5-7)
[2020-07-20 19:03] LABS: Add Urine Microscopic? YES; Amphetamines Screen Urine Negative (Negative); Bacteria Urine TRACE /hpf; Barbiturates Screen Urine Negative (Negative); Benzodiazepines Screen Urine Negative (Negative); Bilirubin Urine Neg (Negative); Blood Urine Neg (Negative); Cocaine Screen Urine Negative (Negative); Glucose Urine UA 1+ (Normal); Ketones Urine Negative (Negative); Leukocyte Esterase Urine Negative (Negative); Nitrate Urine Negative (Negative); Opiate Screen Urine Negative (Negative); PCP Screen Urine Negative (Negative); Protein Urine Trace (Negative); RBC Urine 0-4 /hpf (0-2); Specific Gravity, Urine 1.015 (1.005-1.030); Squamous Epithelial Cell Urine 0-4 /hpf (0-5); THC Screen Urine Positive (Negative); Urobilinogen Urine Norm (Negative); WBC Urine 0-4 /hpf (0-5)
[2020-07-20 19:03] LABS: Glucose Point of Care 244 mg/dL (70-110)
[2020-07-20 19:19] VITALS: BP 209/107; PULSE 95; RESP 20; O2SAT 95
[2020-07-20] MEDS: LORazepam 1 mg Tablet PO (19:33)
--- NOTE | 2020-07-20 19:42 | ED_ITS ---
HPI - Neuro Symptoms/Deficit General: Chief Complaint: Neuro Symptoms/Deficit Stated Complaint: STROKE SYS Time Seen by Provider: 07/20/20 18:11 Source: patient and family (daughter) Mode of arrival: ambulatory Limitations: no limitations History of Present Illness: HPI Narrative: Patient is a 79-year-old male with a history of diabetes mellitus, coronary artery disease, status post CABG 12 years ago, who presented to the emergency department with some neurologic symptoms according to the daughter. He was last known well about 1400 this afternoon after pulmonary rehab. During pulmonary rehab, he required oxygen which is unusual for him. He apparently had a fall earlier today that was not witnessed by his daughter but the patient denied hitting his head at the time or losing consciousness. He is not sure why he fell. This afternoon when his daughter and her went to the store with the patient and he tried to walk he felt very unsteady and felt like he was going to fall. He refused to be seen in the emergency department at the time. He then went to bed and when he woke up his daughter says he was not answering questions appropriately. Eventually he began to answer the questions appropriately but his responses were very delayed. His daughter also thought he may have had a left facial droop. The patient is very anxious as he does not want to be in the hospital but he answers all my questions appropriately with no delays. Timing confirmed by: family member Location: left face History of same: No Severity: mild Quality: weak and improving Relieving factors: time Exacerbating factors: none Context: gradual onset On Anticoagulants: No Associated symptoms: Deny chest pain, cough, diaphoresis, fevers/chills, headache(s), anorexia, malaise, nausea, seizures, short of breath, syncope, tingling, vertigo, vomiting or weakness Treatments Prior to Arrival: none Review of Systems General: Reports: 10 or more systems reviewed and unremarkable except in HPI and below Const: Denies: malaise or diaphoresis Card: Denies: chest pain or syncope GI: Denies: nausea or vomiting Neuro: Denies: headache(s) or vertigo [facility] ED PFSH: Medical History Benign prostatic hyperplasia with lower urinary tract symptoms CAD (coronary artery disease) Carotid bruit CHF (congestive heart failure) Diabetes mellitus Heart disease Hypertension Hypomagnesemia Leg weakness, bilateral Numbness and tingling of both legs Pulmonary edema Renal failure Syncope Urgency incontinence Urolithiasis Surgical History H/O mitral valve replacement Hx of CABG S/P ureteral stent placement Family History Other Hyperlipidemia Hypertension Social History Smoking and tobacco status: former smoker Alcohol intake: never Lives independently: Yes Marital status: / Current occupational status: retired History of recent travel: No NIH stroke score NIHSS: Level Of Consciousness - 1a: 0 Level Of Consciousness Questions - 1b: Both Correct Level Of Consciousness Commands - 1c: Both Correct Best Gaze - 2: Normal Visual Almodovar - 3: No Visual Loss Facial Palsy - 4: Normal Motor Arm Right - 5: No Drift Motor Arm Left - 5: No Drift Motor Leg Right - 6: No Drift Motor Leg Left - 6: No Drift Limb Ataxia - 7: Absent Sensory - 8: Normal Best Language - 9: No Aphasia Dysarthia - 10: Normal Extinction And Inattention - 11: 0 Score: Total Score: 0 Physical Exam Const: COMMON NORMALS: no acute distress, average body habitus, patient oriented x3, no limitations, healthy appearing, alert and well nourished HENMT: COMMON NORMALS: normocephalic, atraumatic and moist oral mucous membranes HEAD & SCALP: normocephalic and atraumatic Neck/C-Spine: COMMON NORMALS: no meningeal signs and no JVD Resp: COMMON NORMALS: normal respiratory effort, No retractions, No use of accessory muscles, clear to auscultation bilaterally and percussion normal AUSCULTATION: clear to auscultation bilaterally PERCUSSION: percussion normal Cardio: COMMON NORMALS: no JVD, regular rate, regular rhythm, S1 normal heart sound present, S2 normal heart sound present, No gallops present (Cardio), No clicks present (Cardio), No murmurs present (Cardio), No rub (Cardio) and Peripheral pulses 2+ throughout RATE: regular rate RHYTHM: regular rhythm HEART SOUNDS: S1 normal heart sound present and S2 normal heart sound present PERIPHERAL PULSES: Peripheral pulses 2+ throughout GI: COMMON NORMALS: Normal to inspection, nondistended, normoactive bowel sounds present, Soft to palpation, non-tender, No hepatosplenomegaly present, no masses and no bruits PALPATION: Yes Soft to palpation and Yes No hepatosplenomegaly present Extremity: COMMON NORMALS: normal to inspection, full ROM, capillary refill normal, no calf tenderness and no pedal edema Neuro: COMMON NORMALS: patient oriented x3 SENSORIUM/ORIENTATION: Yes alert MENINGEAL SIGNS: Yes no meningeal signs Skin: COMMON NORMALS: no rashes or lesions noted, no wounds, turgor normal, no jaundice, no petechiae and no mottling GENERAL SKIN EXAM: no rashes or lesions noted and turgor normal Course Reevaluation(s): Reevaluation #1: Discussed his lab and imaging findings with him and his daughter. Baseline troponin mildly elevated 2-hour delta is flat. We will however order an outpatient stress test. CT scan was unremarkable. NIHSS was 0. We will discharge him home with no new orders other than the stress test. They voiced understanding and they are in agreement with the plan. Time: 23:59 Vital Signs: Vital signs: Vital Signs Temperature 98.0 F 07/20/20 17:51 Pulse Rate 85 07/20/20 23:11 Respiratory Rate 16 07/20/20 23:11 Blood Pressure 165/79 07/20/20 23:11 Pulse Oximetry 94 07/20/20 23:11 MDM - Neuro Symptoms/Deficit MDM Narrative: Medical decision making narrative: 79-year-old male who was brought into the emergency department with confusion and concern for CVA. NIHSS score was 0, evaluation showed elevated troponin with a flat 2-hour delta. He does have a history of coronary artery disease and apparently so he will be scheduled for an outpatient stress test. Heart score is 5 meaning he has a 17% risk of a major adverse cardiac event in the next 6 weeks. He will obtain an outpatient stress test. Medical Records: Attestation: I reviewed the patient's medical records. Lab Data: Attestation: I reviewed the patient's lab results. Labs: Lab Results 07/20/20 07/20/20 07/20/20 Range/Units 18:42 18:42 19:00 WBC (4.0-10.0) 10^3/ uL RBC (4.1-5.3) 10^6/u L Hgb (11.7-16.6) g/dL Hct (42.0-52.0) % MCV (80-94) fL MCH (28.0-34.0) pg MCHC (30.0-36.0) g/dL RDW (12.1-15.1) % Plt Count (130-400) 10^3/c mm MPV (7.4-10.4) fL Neut % (Auto) % Lymph % (Auto) % Swift % (Auto) % Eos % (Auto) % Baso % (Auto) % Neut # (Auto) (1.8-7.7) 10^3/u L Lymph # (Auto) (0.8-4.8) 10^3/u L Swift # (Auto) (0.2-0.9) 10^3/u L Eos # (Auto) (0.0-0.8) 10^3/u L Baso # (Auto) (0.0-0.1) 10^3/u L Nucleated RBC % (a uto) % Nucleated RBCs # /100WBC PT (12.1-14.9) SECO NDS INR (0.8-1.2) APTT (23.9-36.7) SECO NDS Sodium (136-145) mmol/L Potassium (3.5-5.1) mmol/L Chloride (98-107) mmol/L Carbon Dioxide (22-29) mmol/L Anion Gap (5-19) BUN (8-23) mg/dL Creatinine (0.7-1.2) mg/dL GFR Calculation Glucose (65-115) mg/dL POC Glucose 244 H (70-110) mg/dL Calculated Osmolal ity (285-295) mOsm/k g Calcium (8.5-10.5) mg/dL Total Bilirubin (0.15-1.2) mg/dL AST (0-40) U/L ALT (0-41) U/L Alkaline Phosphata se (40-130) IU/L Troponin T Gen 5 n g/L (0-15) ng/L Troponin T 120 Min torres martinez (0-15) ng/L Delta Troponin T (0-10) ABS# Total Protein (6.6-8.7) g/dL Albumin (3.5-5.2) g/dL Globulin (1.3-4.6) g/dL Urine Color Yellow (Yellow) Urine Appearance Clear (CLEAR) Urine pH 5 (5-7) Ur Specific Gravit y 1.015 (1.005-1.030) Urine Protein Trace (Negative) Urine Glucose (UA) 1+ (Normal) Urine Ketones Negative (Negative) Urine Blood Neg (Negative) Urine Nitrate Negative (Negative) Urine Bilirubin Neg (Negative) Urine Urobilinogen Norm (Negative) mg/dL Ur Leukocyte Shilpa ase Negative (Negative) Urine RBC 0-4 H (0-2) /hpf Urine WBC 0-4 H (0-5) /hpf Ur Squamous Epith Cells 0-4 H (0-5) /hpf Amorphous Sediment Not Reportable Urine Bacteria Trace (NONE) /hpf Urine Opiates Scre en Negative (Negative) ng/mL Ur Barbiturates Sc reen Negative (Negative) ng/mL Ur Phencyclidine S crn Negative (Negative) ng/mL Ur Amphetamines Sc reen Negative (Negative) ng/mL U Benzodiazepines Scrn Negative (Negative) ng/mL Urine Cocaine Scre en Negative (Negative) ng/mL U Marijuana (THC) Screen Positive H (Negative) ng/mL 07/20/20 07/20/20 07/20/20 Range/Units 20:32 20:32 20:32 WBC 8.9 (4.0-10.0) 10^3/ uL RBC 4.44 (4.1-5.3) 10^6/u L Hgb 13.6 (11.7-16.6) g/dL Hct 41.2 L (42.0-52.0) % MCV 92.8 (80-94) fL MCH 30.6 (28.0-34.0) pg MCHC 33.0 (30.0-36.0) g/dL RDW 13.8 (12.1-15.1) % Plt Count 166 (130-400) 10^3/c mm MPV 9.1 (7.4-10.4) fL Neut % (Auto) 78.5 % Lymph % (Auto) 13.1 % Swift % (Auto) 6.3 % Eos % (Auto) 1.2 % Baso % (Auto) 0.6 % Neut # (Auto) 7.02 (1.8-7.7) 10^3/u L Lymph # (Auto) 1.2 (0.8-4.8) 10^3/u L Swift # (Auto) 0.6 (0.2-0.9) 10^3/u L Eos # (Auto) 0.1 (0.0-0.8) 10^3/u L Baso # (Auto) 0.1 (0.0-0.1) 10^3/u L Nucleated RBC % (a uto) 0 % Nucleated RBCs # 0.0 /100WBC PT 14.70 (12.1-14.9) SECO NDS INR 1.12 (0.8-1.2) APTT 32.5 (23.9-36.7) SECO NDS Sodium 137 (136-145) mmol/L Potassium 4.5 (3.5-5.1) mmol/L Chloride 102 (98-107) mmol/L Carbon Dioxide 27 (22-29) mmol/L Anion Gap 12.5 (5-19) BUN 28 H (8-23) mg/dL Creatinine 1.5 H (0.7-1.2) mg/dL GFR Calculation Not Reportable Glucose 286 H (65-115) mg/dL POC Glucose (70-110) mg/dL Calculated Osmolal ity 300 H (285-295) mOsm/k g Calcium 8.8 (8.5-10.5) mg/dL Total Bilirubin 0.4 (0.15-1.2) mg/dL AST 14 (0-40) U/L ALT 19 (0-41) U/L Alkaline Phosphata se 65 (40-130) IU/L Troponin T Gen 5 n g/L (0-15) ng/L Troponin T 120 Min torres martinez (0-15) ng/L Delta Troponin T (0-10) ABS# Total Protein 6.4 L (6.6-8.7) g/dL Albumin 4.0 (3.5-5.2) g/dL Globulin 2.4 (1.3-4.6) g/dL Urine Color (Yellow) Urine Appearance (CLEAR) Urine pH (5-7) Ur Specific Gravit y (1.005-1.030) Urine Protein (Negative) Urine Glucose (UA) (Normal) Urine Ketones (Negative) Urine Blood (Negative) Urine Nitrate (Negative) Urine Bilirubin (Negative) Urine Urobilinogen (Negative) mg/dL Ur Leukocyte Shilpa ase (Negative) Urine RBC (0-2) /hpf Urine WBC (0-5) /hpf Ur Squamous Epith Cells (0-5) /hpf Amorphous Sediment Urine Bacteria (NONE) /hpf Urine Opiates Scre en (Negative) ng/mL Ur Barbiturates Sc reen (Negative) ng/mL Ur Phencyclidine S crn (Negative) ng/mL Ur Amphetamines Sc reen (Negative) ng/mL U Benzodiazepines Scrn (Negative) ng/mL Urine Cocaine Scre en (Negative) ng/mL U Marijuana (THC) Screen (Negative) ng/mL 07/20/20 07/20/20 Range/Units 20:32 23:29 WBC (4.0-10.0) 10^3/ uL RBC (4.1-5.3) 10^6/u L Hgb (11.7-16.6) g/dL Hct (42.0-52.0) % MCV (80-94) fL MCH (28.0-34.0) pg MCHC (30.0-36.0) g/dL RDW (12.1-15.1) % Plt Count (130-400) 10^3/c mm MPV (7.4-10.4) fL Neut % (Auto) % Lymph % (Auto) % Swift % (Auto) % Eos % (Auto) % Baso % (Auto) % Neut # (Auto) (1.8-7.7) 10^3/u L Lymph # (Auto) (0.8-4.8) 10^3/u L Swift # (Auto) (0.2-0.9) 10^3/u L Eos # (Auto) (0.0-0.8) 10^3/u L Baso # (Auto) (0.0-0.1) 10^3/u L Nucleated RBC % (a uto) % Nucleated RBCs # /100WBC PT (12.1-14.9) SECO NDS INR (0.8-1.2) APTT (23.9-36.7) SECO NDS Sodium (136-145) mmol/L Potassium (3.5-5.1) mmol/L Chloride (98-107) mmol/L Carbon Dioxide (22-29) mmol/L Anion Gap (5-19) BUN (8-23) mg/dL Creatinine (0.7-1.2) mg/dL GFR Calculation Glucose (65-115) mg/dL POC Glucose (70-110) mg/dL Calculated Osmolal ity (285-295) mOsm/k g Calcium (8.5-10.5) mg/dL Total Bilirubin (0.15-1.2) mg/dL AST (0-40) U/L ALT (0-41) U/L Alkaline Phosphata se (40-130) IU/L Troponin T Gen 5 n g/L 35 H (0-15) ng/L Troponin T 120 Min torres martinez 44.79 H (0-15) ng/L Delta Troponin T 9.79 (0-10) ABS# Total Protein (6.6-8.7) g/dL Albumin (3.5-5.2) g/dL Globulin (1.3-4.6) g/dL Urine Color (Yellow) Urine Appearance (CLEAR) Urine pH (5-7) Ur Specific Gravit y (1.005-1.030) Urine Protein (Negative) Urine Glucose (UA) (Normal) Urine Ketones (Negative) Urine Blood (Negative) Urine Nitrate (Negative) Urine Bilirubin (Negative) Urine Urobilinogen (Negative) mg/dL Ur Leukocyte Shilpa ase (Negative) Urine RBC (0-2) /hpf Urine WBC (0-5) /hpf Ur Squamous Epith Cells (0-5) /hpf Amorphous Sediment Urine Bacteria (NONE) /hpf Urine Opiates Scre en (Negative) ng/mL Ur Barbiturates Sc reen (Negative) ng/mL Ur Phencyclidine S crn (Negative) ng/mL Ur Amphetamines Sc reen (Negative) ng/mL U Benzodiazepines Scrn (Negative) ng/mL Urine Cocaine Scre en (Negative) ng/mL U Marijuana (THC) Screen (Negative) ng/mL Imaging Data^: CT Head: Attestation: I personally reviewed and interpreted this imaging study as follows: Radiologist's impression: [facility] [facility]/[address] [address], [place] [address]IK Scan ReportSigned Patient: Shayna Armendariz #: [id number]: 1940cct#:[id number]/Sex: 79 / MADM Date: 07/20/20Loc: ERRoom/Bed:Attending Dr: Ordering Provider/Ordering MD: Donn Rocha MD, [facility] [place] of Service: 07/20/20 Procedure(s): CT head wo con* [id number] Accession Number(s): [id number] Report Number: [id number] PROCEDURE INFORMATION: Exam: CT Head Without Contrast Exam date and time: 07/20/2020 6:38 PM Age: 79 years old Clinical indication: Altered mental status/memory loss; Patient HX: AMS, weakness; Additional info: Symptoms of acute stroke TECHNIQUE: Imaging protocol: Computed tomography of the head without contrast. Radiation optimization: All CT scans at this facility use at least one of these dose optimization techniques: automated exposure control; mA and/or kV adjustment per patient size (includes targeted exams where dose is matched to clinical indication); or iterative reconstruction. Other technique: STROKE PROTOCOL was implemented. COMPARISON: No relevant prior studies available. RADIATION DOSE METRICS: Total DLP (mGy-cm): 996.09 FINDINGS: Brain: There is moderate cortical atrophy. Low-density changes in the white matter are consistent with nonspecific small vessel chronic ischemic change. There is no intracranial mass, hemorrhage or edema. Cerebral ventricles: No ventriculomegaly. Bones/joints: Unremarkable. No acute fracture. Paranasal sinuses: Visualized sinuses are unremarkable. No fluid levels. Mastoid air cells: Visualized mastoid air cells are well aerated. Soft tissues: Unremarkable. CT/CT head wo con* [id number] IMPRESSION: No acute intracranial finding. ASSESSMENT: ASPECTS (Amy Stroke Program Early CT Score) is 10. Radiation Dose CTDIVOL = (mGy): DLP = 996.09 (mGy-cm) Dictated By:Dayanna Manueligned By:Susu Manuel Date/Time:07/20/201914DD/ 12 EKG Data^: EKG 1: Attestation: I personally reviewed and interpreted this EKG as follows: EKG interpretation date: 07/20/20 EKG interpretation time: 19:06 Prior EKG tracings: not available for review Interpretation: Sinus rhythm with first-degree AV block. Heart rate 97 bpm. Right bundle branch block. No ST changes. EKG 2: Attestation: I personally reviewed and interpreted this EKG as follows: EKG interpretation date: 07/20/20 EKG interpretation time: 21:08 Prior EKG tracings: available for review Interpretation: Sinus tachycardia with first-degree AV block. Heart rate 102 bpm. Block. Q waves in leads II, III and aVF. No ST changes. Discharge Plan Discharge Patient Disposition: Home Clinical Impression: Acute confusion, Elevated troponin Condition: Stable Prescriptions: Continued atorvastatin 80 mg Tablet 80 mg PO BEDTIME@190 RF: 0 acetaminophen [Tylenol] 325 mg Tablet 325 mg PO QID PRN (Reason: Pain) RF: 0 magnesium oxide [MagOx] 400 mg (241.3 mg magnesium) Tablet 400 mg PO DAILY@0900 RF: 0 calcium polycarbophil 625 mg Tablet 1,250 mg PO DAILY@09 RF: 0 docusate sodium 100 mg Capsule 100 mg PO TID PRN (Reason: Constipation) RF: 0 insulin aspart U-100 [Novolog Flexpen U-100 Insulin] 100 unit/mL (3 mL) Insulin Pen 0 unit SUBCUT TID RF: 0 omeprazole 20 mg Tablet,Delayed Release (Dr/Ec) 20 mg PO BID@899,1900 RF: 0 venlafaxine 75 mg Tablet Extended Release 24 Hr 75 mg PO DAILY RF: 0 Patriot 3-6-9 1,200 mg Capsule 1 cap PO BID@899,1899 RF: 0 cholecalciferol (vitamin D3) [Vitamin D3] 50 mcg (2,000 unit) tablet 2,000 unit PO DAILY@09 RF: 0 carvedilol 6.25 mg Tablet 6.25 mg PO BID@ RF: 0 Lantus U-100 Insulin See Rx Instructions .ROUTE .COMPLEX RF: 0 aspirin 81 mg Tablet,Delayed Release (Dr/Ec) 81 mg PO DAILY@0900 RF: 0 finasteride 5 mg Tablet 5 mg PO DAILY@0900 RF: 0 semaglutide 0.25 mg or 0.5 mg(2 mg/1.5 mL) Pen Injector 0.25 mg SUBCUT Q7D RF: 0 sodium chloride See Rx Instructions .ROUTE .COMPLEX RF: 0 Lasix 40 mg tablet 20 mg PO DAILY@0900 RF: 0 tamsulosin 0.4 mg capsule 0.4 mg PO DAILY@1900 RF: 0 Discharge Orders: Discharge ED (Routine); Ordered 07/21/20 Ordered By: Donn Rocha Referrals: Sam Fay DO [Primary Care Provider] - 1-3 days Discharge Diet: Usual diet Discharge Activity: Increase activity as tolerated Patient Instructions: Confusion Activity Restrictions/Additional Instructions: Return for any new or worsening symptoms. Follow-up with your primary care provider within 3 days. You will be contacted by case management to schedule an outpatient stress test. Continue home medications. Coding Level of Care Code ED Armored Transport Service Manager for Nathaniel Alicea Exam Comprehensive
[2020-07-20 20:00] VITALS: BP 152/89; PULSE 95; RESP 18; O2SAT 95
[2020-07-20 20:37] LABS: Basophils # 0.1 10^3/uL (0.0-0.1); Basophils % 0.6 %; Eosinophils # 0.1 10^3/uL (0.0-0.8); Eosinophils % 1.2 %; Hematocrit 41.2 % (42.0-52.0); Hemoglobin 13.6 g/dL (11.7-16.6); Lymphocytes # 1.2 10^3/uL (0.8-4.8); Lymphocytes % 13.1 %; Mean Corpuscular Hemoglobin 30.6 pg (28.0-34.0); Mean Corpuscular Volume 92.8 fL (80-94); Mean Platelet Volume 9.1 fL (7.4-10.4); Monocytes # 0.6 10^3/uL (0.2-0.9); Monocytes % 6.3 %; Neutrophils # 7.02 10^3/uL (1.8-7.7); Neutrophils % 78.5 %; Nucleated Red Blood Cells % 0 %; Platelet Count 166 10^3/cmm (130-400); Red Blood Count 4.44 10^6/uL (4.1-5.3); Red Cell Distribution Width 13.8 % (12.1-15.1); White Blood Count 8.9 10^3/uL (4.0-10.0)
[2020-07-20 20:54] LABS: INR 1.12 (0.8-1.2)
[2020-07-20 20:55] LABS: Alanine Aminotransferase 19 U/L (0-41); Alkaline Phosphatase 65 IU/L (40-130); Anion Gap 12.5 (5-19); Aspartate Amino Transferase 14 U/L (0-40); Blood Urea Nitrogen 28 mg/dL (8-23); Calcium 8.8 mg/dL (8.5-10.5); Carbon Dioxide 27 mmol/L (22-29); Chloride 102 mmol/L (98-107); Globulin 2.4 g/dL (1.3-4.6); Glucose 286 mg/dL (65-115); Osmolality Calculated 300 mOsm/kg (285-295); Potassium 4.5 mmol/L (3.5-5.1); Sodium 137 mmol/L (136-145); Total Bilirubin 0.4 mg/dL (0.15-1.2); Total Protein 6.4 g/dL (6.6-8.7)
[2020-07-20 20:56] LABS: Partial Thromboplastin Time 32.5 SECONDS (23.9-36.7); Troponin T (5th) Once 35 ng/L (0-15)
[2020-07-20 21:16] VITALS: BP 157/76; PULSE 96; RESP 16; O2SAT 94
--- NOTE | 2020-07-20 23:00 | ECG_ITS ---
[facility] Test Date: 2020-07-20 Pat Name: Jose Armendariz Department: Room: Gender: Male Signal Constructor: : 1940 Requested By: Donn Rocha I Order Number: [id number] Rebeca MD: Pippa Zimmerman M.D. Measurements Intervals [place] Rate: 102 P: 95 SC: 218 QRS: 71 QRSD: 128 T: -21 QT: 365 QTc: 477 Interpretive Statements SINUS TACHYCARDIA WITH FIRST DEGREE AV BLOCK RIGHT BUNDLE BRANCH BLOCK [120+ ms QRS DURATION, UPRIGHT V1, 40+ ms S IN I/aVL/V4/V5/V6] INFERIOR MYOCARDIAL INFARCTION , OF INDETERMINATE AGE [40+ ms Q WAVE AND/OR ST/T ABNORMALITY IN II/aVF] Compared to ECG 07/20/2020 19:06:14 Myocardial infarct finding now present Sinus rhythm no longer present Left ventricular hypertrophy no longer present ST (T wave) deviation no longer present Electronically Signed On 07-21-2020 14:55:06 CDT by Pippa Zimmerman M.D. [id number] ca
--- NOTE | 2020-07-20 23:02 | PC.NURSE ---
patient report received from Arnie SARAVIA and care transferred to MANJIT Segundo
[2020-07-20 23:11] VITALS: BP 165/79; PULSE 85; RESP 16; O2SAT 94
[2020-07-20 23:52] LABS: Troponin 5 2HR 44.79 ng/L (0-15)
[2020-07-20 23:54] LABS: Troponin 5 2HR Delta 9.79 ABS# (0-10)
[2020-07-21 00:29] VITALS: BP 181/93; PULSE 85; RESP 16; O2SAT 95
--- NOTE | 2020-07-24 12:35 | DCPLANNER ---
wild life manager had message to schedule an out patient stress test for patient. wild life manager can not schedule a stress test for patient, due to patient having [employer] insurance. wild life manager called [facility], spoke with Elizabeth, gave clinic patients information. A follow up appointment was scheduled for , August 02, 2020 at 8:[address] Chadwick. wild life manager also emailed patients information to June with [employer] in the community so that the authorization process could be started. wild life manager called patients daughter and gave the daughter the appointment information.
--- NOTE | 2020-09-24 07:54 | DCPLANNER ---
Patient had a follow up appointment scheduled for 08.02.20 with [facility] - patient did attend appointment.
== END 2020-07-21 00:30 | disposition home or self-care (01) ==
PROVIDERS: Emergency Provider Family Medicine; PCP Emergency Medicine Emergency Medical Services
DX: R41.0 Disorientation, unspecified (principal); R77.8 Other specified abnormalities of plasma proteins; Z79.82 Long term (current) use of aspirin; Z79.4 Long term (current) use of insulin; I25.10 Atherosclerotic heart disease of native coronary artery without angina pectoris; I11.0 Hypertensive heart disease with heart failure; I50.9 Heart failure, unspecified; E11.9 Type 2 diabetes mellitus without complications; Z95.1 Presence of aortocoronary bypass graft; Z87.891 Personal history of nicotine dependence
CPT/HCPCS: 36415; 36416; 70450; 80053; 80306; 81001; 82962; 84484; 85025; 85610; 85730; 93005; 99284

== ENCOUNTER 2020-08-07 06:00 | Outpatient (RCR) | payer OTHER, MEDICARE, SELFPAY | END 2020-09-05 23:59 | disposition home or self-care (01) | LOC: PULRHB 06:00 | PROVIDERS: PCP Emergency Medicine Emergency Medical Services; Visit Provider Emergency Medicine Emergency Medical Services | DX: R06.02 Shortness of breath (principal) | CPT/HCPCS: G0424 ==

== ENCOUNTER → 2020-08-16 10:04 | Outpatient (BNVA) | payer OTHER, MEDICARE, SELFPAY | PROVIDERS: PCP Emergency Medicine Emergency Medical Services; Visit Provider Internal Medicine Cardiovascular Disease | DX: I10 Essential (primary) hypertension (principal); I25.10 Atherosclerotic heart disease of native coronary artery without angina pectoris | CPT/HCPCS: 80048; 83735; 83880 ==

== ENCOUNTER → 2020-09-27 10:29 | Outpatient (BNVA) | payer OTHER, MEDICARE, SELFPAY | PROVIDERS: PCP Emergency Medicine Emergency Medical Services; Visit Provider Urology | DX: N39.41 Urge incontinence (principal); N40.0 Benign prostatic hyperplasia without lower urinary tract symptoms; N40.1 Benign prostatic hyperplasia with lower urinary tract symptoms; N20.9 Urinary calculus, unspecified; R35.0 Frequency of micturition | CPT/HCPCS: 81003 ==

== ENCOUNTER 2020-10-09 09:25 | Outpatient (CLI) | payer OTHER, MEDICARE, SELFPAY ==
[2020-10-09 10:34] VITALS: BMI 32.9
--- NOTE | 2020-10-09 10:34 | ECG_ITS ---
[facility] Test Date: 2020-10-09 Pat Name: Jose Armendariz Department: Room: Gender: Male Color Strainer: Macy Harrison : 1940 Requested By: Martha Girard Order Number: [id number] Rebeca MD: Martha Girard M.D. Interpretive Statements NAME OF STUDY: LEXISCAN SESTAMIBI STRESS TEST INDICATION: Chest Pain PROCEDURE: At the baseline, the blood pressure was 193/89 mmHg with a heart rate of 80 bpm. The electrocardiogram showed normal sinus rhythm, normal axis with nonspecific ST-T wave changes in inferior leads. The Lexiscan was infused over a period of 20 seconds. A total of 0.4 milligrams of Lexiscan was infused. The stress phase was continued for a total of 5 minutes. Heart rate at the end of the stress phase was 85 bpm with a blood pressure of 109/54 mmHg. The EKG at the peak infusion revealed no significant ST-T wave changes. Frequent PVCs noted during Lexiscan infusion. Study was terminated to protocol completion. Sestamibi was injected 20 seconds after the Lexiscan infusion. Blood pressure at the end of the recovery phase was 115/55 mmHg with a heart rate of 85 beats per minute. CONCLUSION: 1. No significant EKG changes with the LexiScan infusion. 2. No LexiScan induced chest pain or cardiac arrhythmia. 3. Normal blood pressure and heart rate response. 4. Sestamibi/sestamibi perfusion scan pending; see separate report. Electronically Signed On 10-16-2020 12:43:39 CDT by Martha Girard M.D. [id number]
--- NOTE | 2020-10-09 10:35 | NMCV_ITS ---
NM yesica perf SPECT r/s* [id number] Jose Armendariz Age: 80 Gender: M : 1940 Exam Date: 10/09/2020 10:45 Ordering Phys: Martha Girard MD ([email or web address]) Technologist: ROXANA Messina Exam Location: [facility] Indications: DYSPNEA STRESS TEST Please see separate stress test report in [facility] for full findings IMAGE PROTOCOL Rest/Stress 1 Lexiscan Day Radiopharmaceutical Dose (mCi) Administration Site Administered by Rest: Tc-99m 11.0 IV ROXANA Bravo Sestamibi Stress:Tc-99m 32.7 IV ROXANA Bravo Sestamibi Rest: 09-Oct-2020 60 Discovery 630 Stress: 09-Oct-2020 30 Discovery 630 0.4mg Lexiscan. Images obtained in supine and prone position. SPECT RESULTS Technical Quality: Excellent Raw Data Analysis: Normal Image Corrections: No attenuation or motion correction applied Summed Stress Score: 24 Summed Rest Score: 18 Summed Difference Score: 6 PERFUSION FINDINGS Large sized perfusion abnormality of moderate to severe severity of entire inferior, basal to mid inferolateral and apical lateral chaudhary on rest images with some reversibility noted in mid anterolateral, apical lateral and apical chaudhary on stress images. FUNCTIONAL RESULTS (calculated via Gated SPECT) Stress Image LV EF (%): 41 Stress EDV (mL):166 TID: 0.91 Stress ESV (mL):98 FUNCTIONAL FINDINGS: The left ventricle is normal. Transient Ischemia Dilatation of 0.91. There is mildly reduced left ventricular global systolic function. The left ventricular ejection fraction is mildly reduced with a value of 41%. There is hypokinesis of inferior wall. Increased end-diastolic end-systolic volumes. IMPRESSIONS 1. Large sized perfusion abnormality of moderate to severe severity of entire inferior, basal to mid inferolateral and apical lateral chaudhary with some reversibility noted in lateral wall. 2. 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 3. The left ventricular ejection fraction is mildly reduced with a value of 41%. 4. There is hypokinesis of inferior wall. 5. No prior similar studies to compare. Martha Girard MD (Electronically Signed) Final Date: 16 October 2020 12:33 S
[2020-10-09 11:32] VITALS: BP 105/52; PULSE 89
[2020-10-09] MEDS: regadenoson 0.4 Mg/5 ml Syringe IVP (11:32)
== END 2020-10-09 09:26 | disposition home or self-care (01) ==
PROVIDERS: PCP Emergency Medicine Emergency Medical Services; Visit Provider Internal Medicine Cardiovascular Disease
DX: R07.9 Chest pain, unspecified (principal); R06.00 Dyspnea, unspecified
CPT/HCPCS: 78452; 93017; A9500; J2785

== ENCOUNTER → 2020-10-23 09:49 | Outpatient (BNVA) | payer OTHER, MEDICARE, SELFPAY | PROVIDERS: PCP Emergency Medicine Emergency Medical Services; Visit Provider Specialist | DX: E11.42 Type 2 diabetes mellitus with diabetic polyneuropathy (principal); Z79.4 Long term (current) use of insulin; R56.9 Unspecified convulsions; R26.89 Other abnormalities of gait and mobility | CPT/HCPCS: 99205 ==

== ENCOUNTER → 2020-11-29 09:58 | Outpatient (BNVA) | payer OTHER, SELFPAY | PROVIDERS: PCP Emergency Medicine Emergency Medical Services; Referring Provider Specialist; Visit Provider Anesthesiology Pain Medicine | DX: G62.9 Polyneuropathy, unspecified (principal); M79.672 Pain in left foot; M25.572 Pain in left ankle and joints of left foot; M54.9 Dorsalgia, unspecified; R20.2 Paresthesia of skin; R20.0 Anesthesia of skin | CPT/HCPCS: 99203; 99204 ==

== ENCOUNTER → 2020-12-10 13:17 | Outpatient (BNVA) | payer OTHER, SELFPAY | PROVIDERS: PCP Emergency Medicine Emergency Medical Services; Visit Provider Specialist | DX: G40.909 Epilepsy, unspecified, not intractable, without status epilepticus (principal) | CPT/HCPCS: 95816 ==

== ENCOUNTER 2020-12-11 15:40 | Outpatient (CLI) | payer OTHER, MEDICARE, SELFPAY ==
[2020-12-11 16:24] LABS: Basophils # 0.1 10^3/uL (0.0-0.1); Basophils % 0.6 %; Eosinophils # 0.1 10^3/uL (0.0-0.8); Eosinophils % 1.6 %; Hematocrit 42.5 % (42.0-52.0); Hemoglobin 14.3 g/dL (11.7-16.6); Lymphocytes # 1.4 10^3/uL (0.8-4.8); Lymphocytes % 15.8 %; Mean Corpuscular HGB Conc 33.6 g/dL (30.0-36.0); Mean Corpuscular Hemoglobin 30.8 pg (28.0-34.0); Mean Corpuscular Volume 91.4 fl (80-94); Mean Platelet Volume 9.2 fL (7.4-10.4); Monocytes # 0.6 10^3/uL (0.2-0.9); Monocytes % 6.5 %; Neutrophils # 6.76 10^3/uL (1.8-7.7); Neutrophils % 75.1 %; Nucleated Red Blood Cells % 0 %; Platelet Count 189 10^3/cmm (130-400); Red Blood Count 4.65 10^6/uL (4.1-5.3); Red Cell Distribution Width 14.1 % (12.1-15.1)
[2020-12-11 16:50] LABS: Urine Creatinine 102 mg/dL (39-259)
[2020-12-11 16:56] LABS: UPRO/UCREAT Ratio 0.25 mg/mg CR; Urine Protein Random 25 mg/dL
[2020-12-11 17:05] LABS: Albumin Level 3.8 g/dL (3.5-5.2); Anion Gap 15.1 (5-19); Blood Urea Nitrogen 23 mg/dL (8-23); Carbon Dioxide 23 mmol/L (22-29); Chloride 98 mmol/L (98-107); Glucose 248 mg/dL (65-115); Phosphorus 3.1 mg/dL (2.5-4.5); Potassium 3.1 mmol/L (3.5-5.1); Sodium 133 mmol/L (136-145)
== END 2020-12-11 15:41 | disposition home or self-care (01) ==
PROVIDERS: PCP Emergency Medicine Emergency Medical Services; Visit Provider Internal Medicine
DX: N18.31 Chronic kidney disease, stage 3a (principal)
CPT/HCPCS: 36415; 80069; 82570; 84156; 85025

== ENCOUNTER → 2021-02-04 12:53 | Outpatient (BNVA) | payer OTHER, SELFPAY | PROVIDERS: PCP Emergency Medicine Emergency Medical Services; Visit Provider Specialist | DX: G40.909 Epilepsy, unspecified, not intractable, without status epilepticus (principal); E11.42 Type 2 diabetes mellitus with diabetic polyneuropathy; Z79.4 Long term (current) use of insulin | CPT/HCPCS: 99214 ==

== ENCOUNTER 2021-03-21 06:00 | Outpatient (RCR) | payer OTHER, SELFPAY | END 2021-04-08 23:59 | disposition home or self-care (01) | LOC: SPT 06:00 | PROVIDERS: PCP Emergency Medicine Emergency Medical Services; Referring Provider Emergency Medicine Emergency Medical Services; Visit Provider Emergency Medicine Emergency Medical Services | DX: G62.9 Polyneuropathy, unspecified (principal) | CPT/HCPCS: 97110; 97161 ==

== ENCOUNTER → 2021-04-04 15:49 | Outpatient (BNVA) | payer OTHER, MEDICARE, SELFPAY | PROVIDERS: PCP Emergency Medicine Emergency Medical Services; Visit Provider Urology | DX: N40.1 Benign prostatic hyperplasia with lower urinary tract symptoms (principal); N20.9 Urinary calculus, unspecified; R35.0 Frequency of micturition | CPT/HCPCS: 81003 ==

== ENCOUNTER 2021-04-09 11:19 | Outpatient (RCR) | payer OTHER, SELFPAY | END 2021-05-06 23:59 | disposition home or self-care (01) | LOC: CR 11:19 | PROVIDERS: PCP Emergency Medicine Emergency Medical Services; Visit Provider Emergency Medicine Emergency Medical Services | DX: I50.9 Heart failure, unspecified (principal) | CPT/HCPCS: 93798 ==

== ENCOUNTER 2021-05-03 13:48 | Outpatient (CLI) | payer MEDICARE, OTHER, SELFPAY ==
[2021-05-03 14:30] LABS: Basophils % 0.5 %; Eosinophils # 0.2 10^3/uL (0.0-0.8); Eosinophils % 1.8 %; Hematocrit 43.4 % (42.0-52.0); Hemoglobin 14.9 g/dL (11.7-16.6); Lymphocytes # 1.6 10^3/uL (0.8-4.8); Lymphocytes % 18.7 %; Mean Corpuscular HGB Conc 34.3 g/dL (30.0-36.0); Mean Corpuscular Hemoglobin 30.8 pg (28.0-34.0); Mean Corpuscular Volume 89.7 fl (80-94); Mean Platelet Volume 9.3 fL (7.4-10.4); Monocytes # 0.6 10^3/uL (0.2-0.9); Monocytes % 7.2 %; Neutrophils # 6.11 10^3/uL (1.8-7.7); Neutrophils % 71.6 %; Nucleated Red Blood Cells % 0 %; Platelet Count 168 10^3/cmm (130-400); Red Blood Count 4.84 10^6/uL (4.1-5.3); Red Cell Distribution Width 13.4 % (12.1-15.1); White Blood Count 8.5 10^3/uL (4.0-10.0)
[2021-05-03 14:49] LABS: Albumin Level 4.1 g/dL (3.5-5.2); Anion Gap 16.4 (5-19); Blood Urea Nitrogen 32 mg/dL (8-23); Carbon Dioxide 24 mmol/L (22-29); Chloride 103 mmol/L (98-107); Glucose 196 mg/dL (65-115); Phosphorus 3.5 mg/dL (2.5-4.5); Potassium 4.4 mmol/L (3.5-5.1); Sodium 139 mmol/L (136-145)
[2021-05-03 15:12] LABS: Creatinine Urine, Random 142 mg/dL (39-259); Microalbum Creatinine Ratio Ur 21 mg/dL (0-20); Microalbumin Random Urine 3 ug/dL (0-20)
[2021-05-03 15:24] LABS: 25 Hydroxy Vitamin D 48 ng/mL (30-100)
[2021-05-03 15:40] LABS: Parathyroid Hormone 55.6 pg/mL (15-65)
== END 2021-05-03 13:49 | disposition home or self-care (01) ==
LOC: LAB 14:02
PROVIDERS: PCP Emergency Medicine Emergency Medical Services; Visit Provider Nurse Practitioner Family
DX: N18.32 Chronic kidney disease, stage 3b (principal)
CPT/HCPCS: 80069; 82044; 82306; 82310; 83970; 85025

== ENCOUNTER 2021-05-07 06:00 | Outpatient (RCR) | payer OTHER, SELFPAY | END 2021-06-06 23:59 | disposition home or self-care (01) | LOC: SPT 06:00 | PROVIDERS: PCP Emergency Medicine Emergency Medical Services; Referring Provider Emergency Medicine Emergency Medical Services; Visit Provider Emergency Medicine Emergency Medical Services | DX: G62.9 Polyneuropathy, unspecified (principal) | CPT/HCPCS: 97110 ==

== ENCOUNTER 2021-05-07 11:22 | Outpatient (RCR) | payer OTHER, SELFPAY | END 2021-06-06 23:59 | disposition home or self-care (01) | LOC: CR 11:22 | PROVIDERS: PCP Emergency Medicine Emergency Medical Services; Visit Provider Emergency Medicine Emergency Medical Services | DX: I50.9 Heart failure, unspecified (principal) | CPT/HCPCS: 93798 ==

== ENCOUNTER → 2021-06-03 14:46 | Outpatient (BNVA) | payer OTHER, SELFPAY | PROVIDERS: PCP Emergency Medicine Emergency Medical Services; Visit Provider Specialist | DX: R29.90 Unspecified symptoms and signs involving the nervous system (principal); Z87.891 Personal history of nicotine dependence | CPT/HCPCS: G0463 ==

== ENCOUNTER 2021-06-07 11:02 | Outpatient (RCR) | payer MEDICARE, OTHER, SELFPAY | END 2021-07-06 23:59 | disposition home or self-care (01) | LOC: CR 11:02 | PROVIDERS: PCP Emergency Medicine Emergency Medical Services; Visit Provider Emergency Medicine Emergency Medical Services | DX: I50.9 Heart failure, unspecified (principal) | CPT/HCPCS: 93798 ==

== ENCOUNTER 2021-07-08 11:23 | Outpatient (RCR) | payer OTHER, SELFPAY | END 2021-08-06 23:59 | disposition home or self-care (01) | LOC: CR 11:23 | PROVIDERS: PCP Emergency Medicine Emergency Medical Services; Visit Provider Emergency Medicine Emergency Medical Services | DX: I50.9 Heart failure, unspecified (principal) | CPT/HCPCS: 93798 ==

== ENCOUNTER → 2021-07-10 13:03 | Outpatient (BNVA) | payer OTHER, SELFPAY | PROVIDERS: PCP Emergency Medicine Emergency Medical Services; Visit Provider Specialist | DX: E11.42 Type 2 diabetes mellitus with diabetic polyneuropathy (principal); Z79.4 Long term (current) use of insulin; R56.9 Unspecified convulsions | CPT/HCPCS: 99214 ==

== ENCOUNTER → 2021-07-22 14:52 | Outpatient (BNVA) | payer OTHER, SELFPAY | PROVIDERS: PCP Emergency Medicine Emergency Medical Services; Visit Provider Internal Medicine Cardiovascular Disease | DX: I25.708 Atherosclerosis of coronary artery bypass graft(s), unspecified, with other forms of angina pectoris (principal); R06.00 Dyspnea, unspecified; I13.0 Hypertensive heart and chronic kidney disease with heart failure and stage 1 through stage 4 chronic kidney disease, or unspecified chronic kidney disease; E11.22 Type 2 diabetes mellitus with diabetic chronic kidney disease; N18.9 Chronic kidney disease, unspecified; I50.32 Chronic diastolic (congestive) heart failure; Z79.4 Long term (current) use of insulin; Z95.3 Presence of xenogenic heart valve | CPT/HCPCS: 99214 ==

== ENCOUNTER 2021-08-07 11:11 | Outpatient (RCR) | payer OTHER, SELFPAY | END 2021-09-05 23:59 | disposition home or self-care (01) | LOC: CR 11:11 | PROVIDERS: PCP Emergency Medicine Emergency Medical Services; Visit Provider Emergency Medicine Emergency Medical Services | DX: I50.9 Heart failure, unspecified (principal) | CPT/HCPCS: 93798 ==

== ENCOUNTER 2021-09-06 12:24 | Outpatient (CLI) | payer OTHER, SELFPAY ==
[2021-09-06 13:33] LABS: Basophils # 0.1 10^3/uL (0.0-0.1); Basophils % 0.7 %; Eosinophils # 0.2 10^3/uL (0.0-0.8); Eosinophils % 2.6 %; Hematocrit 43.5 % (42.0-52.0); Lymphocytes # 1.7 10^3/uL (0.8-4.8); Lymphocytes % 18.5 %; Mean Corpuscular HGB Conc 34.5 g/dL (30.0-36.0); Mean Corpuscular Hemoglobin 31.6 pg (28.0-34.0); Mean Corpuscular Volume 91.6 fl (80-94); Mean Platelet Volume 9.6 fL (7.4-10.4); Monocytes # 0.6 10^3/uL (0.2-0.9); Monocytes % 6.2 %; Neutrophils # 6.61 10^3/uL (1.8-7.7); Neutrophils % 71.6 %; Nucleated Red Blood Cells % 0 %; Platelet Count 165 10^3/cmm (130-400); Red Blood Count 4.75 10^6/uL (4.1-5.3); Red Cell Distribution Width 13.7 % (12.1-15.1); White Blood Count 9.2 10^3/uL (4.0-10.0)
[2021-09-06 14:11] LABS: Albumin Level 4.3 g/dL (3.5-5.2); Anion Gap 14.9 (5-19); Blood Urea Nitrogen 31 mg/dL (8-23); Calcium 9.5 mg/dL (8.5-10.5); Carbon Dioxide 28 mmol/L (22-29); Chloride 98 mmol/L (98-107); Glucose 173 mg/dL (65-115); Potassium 3.9 mmol/L (3.5-5.1); Sodium 137 mmol/L (136-145)
[2021-09-06 14:17] LABS: Calcium 9.8 mg/dL (8.5-10.5)
[2021-09-06 14:18] LABS: Creatinine Urine, Random 77 mg/dL (39-259); Microalbum Creatinine Ratio Ur 26 mg/dL (0-20); Microalbumin Random Urine 2 ug/dL (0-20)
[2021-09-06 14:19] LABS: Parathyroid Hormone 56.2 pg/mL (15-65)
[2021-09-06 14:28] LABS: 25 Hydroxy Vitamin D 57 ng/mL (30-100)
== END 2021-09-06 12:25 | disposition home or self-care (01) ==
LOC: LAB 12:32
PROVIDERS: PCP Emergency Medicine Emergency Medical Services; Visit Provider Nurse Practitioner Family
DX: N18.32 Chronic kidney disease, stage 3b (principal)
CPT/HCPCS: 36415; 80069; 82044; 82306; 82310; 83970; 85025

== ENCOUNTER 2021-12-09 11:19 | Outpatient (RCR) | payer OTHER, SELFPAY | END 2022-01-06 23:59 | disposition home or self-care (01) | LOC: CR 11:19 | PROVIDERS: PCP Emergency Medicine Emergency Medical Services; Referring Provider Emergency Medicine Emergency Medical Services; Visit Provider Emergency Medicine Emergency Medical Services | DX: I50.9 Heart failure, unspecified (principal) | CPT/HCPCS: 93798 ==

== ENCOUNTER → 2022-03-31 14:39 | Outpatient (BNVA) | payer MEDICARE, OTHER, SELFPAY | PROVIDERS: PCP Emergency Medicine Emergency Medical Services; Visit Provider Urology | DX: N40.1 Benign prostatic hyperplasia with lower urinary tract symptoms (principal); N20.9 Urinary calculus, unspecified; R35.0 Frequency of micturition | CPT/HCPCS: 81003 ==

== ENCOUNTER → 2022-05-06 08:43 | Outpatient (BNVA) | payer MEDICARE, OTHER, SELFPAY | PROVIDERS: PCP Emergency Medicine Emergency Medical Services; Visit Provider Internal Medicine Cardiovascular Disease | DX: Z45.09 Encounter for adjustment and management of other cardiac device (principal) | CPT/HCPCS: G2066 ==

== ENCOUNTER → 2022-08-07 08:03 | Outpatient (BNVA) | payer MEDICARE, OTHER, SELFPAY | PROVIDERS: PCP Emergency Medicine Emergency Medical Services; Visit Provider Internal Medicine Cardiovascular Disease | DX: Z45.09 Encounter for adjustment and management of other cardiac device (principal) | CPT/HCPCS: G2066 ==

== ENCOUNTER → 2022-09-05 10:08 | Outpatient (BNVA) | payer OTHER, SELFPAY | PROVIDERS: PCP Emergency Medicine Emergency Medical Services; Visit Provider Internal Medicine Cardiovascular Disease | DX: R06.00 Dyspnea, unspecified (principal); I13.0 Hypertensive heart and chronic kidney disease with heart failure and stage 1 through stage 4 chronic kidney disease, or unspecified chronic kidney disease; E11.22 Type 2 diabetes mellitus with diabetic chronic kidney disease; N18.9 Chronic kidney disease, unspecified; Z87.891 Personal history of nicotine dependence; Z95.1 Presence of aortocoronary bypass graft; I50.32 Chronic diastolic (congestive) heart failure; Z79.4 Long term (current) use of insulin | CPT/HCPCS: 99214 ==

== ENCOUNTER → 2022-09-23 13:52 | Outpatient (BNVA) | payer OTHER, SELFPAY | PROVIDERS: PCP Emergency Medicine Emergency Medical Services; Visit Provider Nurse Practitioner Family | DX: I48.91 Unspecified atrial fibrillation (principal); I11.0 Hypertensive heart disease with heart failure; I50.32 Chronic diastolic (congestive) heart failure; I25.708 Atherosclerosis of coronary artery bypass graft(s), unspecified, with other forms of angina pectoris; Z79.01 Long term (current) use of anticoagulants; Z87.891 Personal history of nicotine dependence | CPT/HCPCS: 99214 ==

== ENCOUNTER → 2022-10-07 15:48 | Outpatient (BNVA) | payer OTHER, SELFPAY | PROVIDERS: PCP Emergency Medicine Emergency Medical Services; Visit Provider Internal Medicine Cardiovascular Disease | DX: Z45.09 Encounter for adjustment and management of other cardiac device (principal) | CPT/HCPCS: G2066 ==

== ENCOUNTER → 2022-10-21 13:36 | Outpatient (BNVA) | payer OTHER, SELFPAY | PROVIDERS: PCP Emergency Medicine Emergency Medical Services; Visit Provider Nurse Practitioner Family | DX: I48.91 Unspecified atrial fibrillation (principal); Z87.891 Personal history of nicotine dependence; Z79.01 Long term (current) use of anticoagulants; I11.0 Hypertensive heart disease with heart failure; I50.9 Heart failure, unspecified | CPT/HCPCS: 99214 ==

== ENCOUNTER 2022-10-30 09:14 | Outpatient (RCR) | payer OTHER, SELFPAY | END 2022-11-06 23:59 | disposition home or self-care (01) | LOC: CR 09:14 | PROVIDERS: PCP Emergency Medicine Emergency Medical Services; Referring Provider Emergency Medicine Emergency Medical Services; Visit Provider Emergency Medicine Emergency Medical Services | DX: I73.9 Peripheral vascular disease, unspecified (principal) | CPT/HCPCS: 93798 ==

== ENCOUNTER 2022-11-07 12:31 | Outpatient (RCR) | payer OTHER, SELFPAY | END 2022-12-06 23:59 | disposition home or self-care (01) | LOC: CR 12:31 | PROVIDERS: PCP Emergency Medicine Emergency Medical Services; Referring Provider Emergency Medicine Emergency Medical Services; Visit Provider Emergency Medicine Emergency Medical Services | DX: I73.9 Peripheral vascular disease, unspecified (principal) | CPT/HCPCS: 93798 ==

== ENCOUNTER → 2022-11-21 11:58 | Outpatient (BNVA) | payer OTHER, SELFPAY | PROVIDERS: PCP Emergency Medicine Emergency Medical Services; Visit Provider Internal Medicine Cardiovascular Disease | DX: Z45.09 Encounter for adjustment and management of other cardiac device (principal) | CPT/HCPCS: G2066 ==

== ENCOUNTER 2022-12-09 11:17 | Outpatient (RCR) | payer OTHER, SELFPAY | END 2023-01-06 23:59 | disposition home or self-care (01) | LOC: CR 11:17 | PROVIDERS: PCP Emergency Medicine Emergency Medical Services; Referring Provider Emergency Medicine Emergency Medical Services; Visit Provider Emergency Medicine Emergency Medical Services | DX: I73.9 Peripheral vascular disease, unspecified (principal) | CPT/HCPCS: 93798 ==

== ENCOUNTER 2023-01-07 10:38 | Outpatient (RCR) | payer OTHER, SELFPAY | END 2023-02-05 23:59 | disposition home or self-care (01) | LOC: CR 10:38 | PROVIDERS: PCP Emergency Medicine Emergency Medical Services; Referring Provider Emergency Medicine Emergency Medical Services; Visit Provider Emergency Medicine Emergency Medical Services | DX: I73.9 Peripheral vascular disease, unspecified (principal) | CPT/HCPCS: 93798 ==

== ENCOUNTER 2023-02-06 10:27 | Outpatient (RCR) | payer OTHER, SELFPAY | END 2023-03-08 23:59 | disposition home or self-care (01) | LOC: CR 10:27 | PROVIDERS: PCP Emergency Medicine Emergency Medical Services; Referring Provider Emergency Medicine Emergency Medical Services; Visit Provider Emergency Medicine Emergency Medical Services | DX: I73.9 Peripheral vascular disease, unspecified (principal) | CPT/HCPCS: 93798 ==

== ENCOUNTER → 2023-04-02 11:38 | Outpatient (BNVA) | payer OTHER, SELFPAY | PROVIDERS: PCP Emergency Medicine Emergency Medical Services; Visit Provider Internal Medicine Cardiovascular Disease | DX: I49.5 Sick sinus syndrome (principal); I25.708 Atherosclerosis of coronary artery bypass graft(s), unspecified, with other forms of angina pectoris; I11.0 Hypertensive heart disease with heart failure; I50.32 Chronic diastolic (congestive) heart failure; Z95.3 Presence of xenogenic heart valve; I48.0 Paroxysmal atrial fibrillation; Z87.891 Personal history of nicotine dependence; Z79.01 Long term (current) use of anticoagulants | CPT/HCPCS: 99214 ==

== ENCOUNTER 2023-04-04 19:40 | Emergency (ER) | payer OTHER, SELFPAY ==
[2023-04-04 19:45] VITALS: BP 129/68; PULSE 101; RESP 20; TEMP 37.3; O2SAT 92
--- NOTE | 2023-04-04 20:04 | XRR_ITS ---
PROCEDURE INFORMATION: Exam: XR Chest Exam date and time: 04/04/2023 8:23 PM Age: 82 years old Clinical indication: Shortness of breath; Prior surgery; Surgery date: 6+ months; Patient HX: SOB; HX cabg, loop recorder TECHNIQUE: Imaging protocol: Radiologic exam of the chest. Views: 1 view. COMPARISON: CT angio chest PE protcl [id number] 02/28/2020 3:25 AM FINDINGS: Lungs: Bibasilar atelectasis. Pleural spaces: Unremarkable. No pleural effusion. No pneumothorax. Heart/Mediastinum: Cardiomegaly. Bones/joints: Sternotomy wires. XR/XR chest 1V portable [id number] IMPRESSION: 1. Sternotomy wires. 2. Cardiomegaly. 3. Bibasilar atelectasis.
[2023-04-04 20:14] LABS: Basophils % 0.3 %; Eosinophils # 0.1 10^3/uL (0.0-0.8); Eosinophils % 0.5 %; Hematocrit 43.1 % (37-53); Lymphocytes # 1.9 10^3/uL (0.8-4.8); Lymphocytes % 11.9 %; Mean Corpuscular HGB Conc 34.3 g/dL (30-55); Mean Corpuscular Hemoglobin 32.8 pg (27-33); Mean Corpuscular Volume 95.6 fl (82-101); Mean Platelet Volume 8.4 fL (7.4-10.4); Monocytes % 6.1 %; Neutrophils % 80.8 %; Nucleated Red Blood Cells % 0 %; Platelet Count 180 10^3/cmm (157-399); Red Blood Count 4.51 10^6/uL (3.85-5.65); Red Cell Distribution Width 13.2 % (12.1-15.1); White Blood Count 15.58 10^3/uL (3.29-11.43)
--- NOTE | 2023-04-04 20:31 | ECG_ITS ---
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 Measurements Intervals [place] Rate: 100 P: 107 VA: 268 QRS: 71 QRSD: 127 T: -33 QT: 352 QTc: 454 Interpretive Statements SINUS TACHYCARDIA WITH FIRST DEGREE AV BLOCK WITH FREQUENT SUPRAVENTRICULAR PREMATURE COMPLEXES RIGHT BUNDLE BRANCH BLOCK [120+ ms QRS DURATION, UPRIGHT V1, 40+ ms S IN I/aVL/V4/V5/V6] MODERATE T-WAVE ABNORMALITY, CONSIDER INFERIOR ISCHEMIA [-0.1+ mV T-WAVE IN II/aVF] Compared to ECG 07/20/2020 21:08:33 T-wave abnormality now present Possible ischemia now present Myocardial infarct finding no longer present Electronically Signed On 04-05-2023 21:39:17 HAND SALTER by Pippa Zimmerman M.D. [id number]
[2023-04-04 20:33] LABS: Lactic Sepsis W/Reflex 1.3 mmol/L (0.5-2.2)
[2023-04-04 20:44] LABS: Alanine Aminotransferase 22 U/L (0-41); Albumin Level 3.6 g/dL (3.5-5.2); Alkaline Phosphatase 92 U/L (40-130); Anion Gap 13.8 (5-19); Aspartate Amino Transferase 20 U/L (0-40); Blood Urea Nitrogen 31 mg/dL (8-23); Calcium 9.4 mg/dL (8.5-10.5); Carbon Dioxide 27 mmol/L (22-29); Chloride 101 mmol/L (98-107); Globulin 3.1 g/dL (1.3-4.6); Glucose 175 mg/dL (65-115); Magnesium 1.7 mg/dL (1.7-2.3); NT Pro B Type Natriuretic Pept 1466 pg/mL (0-450); Osmolality Calculated 295 mOsm/kg (285-295); Potassium 4.8 mmol/L (3.5-5.1); Sodium 137 mmol/L (136-145); Total Bilirubin 0.7 mg/dL (0.15-1.2); Total Protein 6.7 g/dL (6.6-8.7)
[2023-04-04 20:49] LABS: SARS Covid-2 Antigen negative (Negative)
[2023-04-04 20:56] VITALS: BP 132/63; PULSE 95; RESP 18; O2SAT 91
[2023-04-04 20:56] LABS: Influenza A by IFA negative (Negative); Influenza B by IFA negative (Negative)
[2023-04-04 22:27] LABS: Add Urine Microscopic? NO
[2023-04-04 22:28] LABS: Charge for UA Resulting for Rev
[2023-04-04 22:31] LABS: Bilirubin Urine 1+ (Negative); Blood Urine Neg (Negative); Glucose Urine UA Norm (Normal); Ketones Urine 1+ (Negative); Leukocyte Esterase Urine Negative (Negative); Nitrate Urine Negative (Negative); Protein Urine Neg (Negative); Specific Gravity, Urine 1.005 (1.005-1.030); Sulfosalicylic Acid Urine Negative (Negative); Urine Appearance Clear (CLEAR); Urine Color Yellow (Yellow); Urobilinogen Urine Norm (Negative); pH Urine 5 (5-7)
[2023-04-04] MEDS: doxycycline 100 mg Tablet PO (22:54)
[2023-04-04] MEDS: FUROsemide 10 mg/mL SDV 10mL 60 MG IVP (22:55)
[2023-04-04] MEDS: dexamethasone 10 mg/mL INJ 6 MG IVP (22:58)
[2023-04-04 22:59] VITALS: BP 133/77; PULSE 107; RESP 24; O2SAT 92
[2023-04-04 23:06] VITALS: PULSE 107; RESP 20; O2SAT 93
[2023-04-04] MEDS: ipratropium-albuterol 3 mL Neb INHALATION (23:06)
--- NOTE | 2023-04-05 15:22 | ED_ITS ---
HPI - SOB/Dyspnea 2 General: Chief Complaint: Shortness of Breath/Dyspnea Stated Complaint: SOB Time Seen by Provider: 04/04/23 19:47 History of Present Illness: HPI Narrative: 82 year old male gentleman with a histor y of congestive heart failure. He has noted increased shortness of breath the last two to three days. No definite fever. He's had a cough, sometimes productive of dark yellow sputum. No increased lower extremity swelling. Some chest discomfort with cough, but not at baseline. He has had exposure to others that have been sick. He uses oxygen at home, and has had to use more frequently the last couple of days. Associated symptoms: Reports nausea; Deny abdominal pain, chest pain, fever(s), palpitations or vomiting Review of Systems 2 Const: Reports: chills; Denies: fever(s) ENMT: Reports: throat pain Card: Denies: chest pain or palpitations Resp: Reports: dyspnea and productive cough GI: Reports: nausea and diarrhea; Denies: abdominal pain or vomiting Neuro: Reports: headache(s) PFSH ED 2 PFSH: Medical History Atrial fibrillation Urgency incontinence Benign prostatic hyperplasia with lower urinary tract symptoms Leg weakness, bilateral Numbness and tingling of both legs Urolithiasis Carotid bruit Syncope Diabetes mellitus Heart disease Hypertension CHF (congestive heart failure) Renal failure Pulmonary edema Hypomagnesemia CAD (coronary artery disease) This patient had a coronary bypass surgery in 2008 along with a mitral valve repair and a maze procedure, at the [facility] in [place]. Surgical History History of mitral valve replacement with bioprosthetic valve S/P ureteral stent placement Hx of CABG Family History Mother , AT AGE 86 No problems noted. Father , AT AGE 65 Stroke Other Hyperlipidemia Hypertension Social History Smoking and tobacco/nicotine status: former use of tobacco/nicotine Alcohol intake: never Substance/Drug Use: never Lives independently: Yes Marital status: / Current occupational status: retired Physical Exam 2 Const: GENERAL APPEARANCE: cooperative, ill appearing (mildly) and frail appearing (mildly) HENMT: COMMON NORMALS: normocephalic, atraumatic and Normal external nose present HEAD & SCALP: normocephalic and atraumatic FACE & SINUS: normal facial exam and face symmetric NOSE: Normal external nose present Eye: COMMON NORMALS: Equal, round and reactive pupils present and EOMs intact bilaterally PUPIL: Yes Equal, round and reactive pupils present Neck/C-Spine: GENERAL: Yes trachea midline Chest: CHEST: Yes Symmetrical chest wall rise Resp: EFFORT & INSPECTION: Yes tachypneic and No respiratory distress A USCULTATION: rhonchi and wheezes Cardio: COMMON NORMALS: regular rhythm RATE: tachycardic RHYTHM: regular rhythm GI: COMMON NORMALS: Normal to inspection, nondistended, normoactive bowel sounds present Extremity: COMMON NORMALS: no pedal edema Neuro: LANDY COMA SCALE: document GCS findings [place] coma scale eye opening: Spontaneous [place] coma scale verbal response: Orientated [place] coma scale motor response: Obey commands Landy coma scale total score: 15 S ENSORY EXAM: Yes extremities (intact) Psych: COMMON NORMALS: speech normal SPEECH: Yes normal speech Skin: COMMON NORMALS: no rashes or lesions noted GENERAL SKIN EXAM: no rashes or lesions noted Course 2 Vital Signs: Vital signs: Vital Signs Temperature 99.1 F 04/04/23 19:45 Pulse Rate 107 H 04/04/23 23:06 Respiratory Rate 20 H 04/04/23 23:06 Blood Pressure 133/77 04/04/23 22:59 Pulse Oximetry 93 04/04/23 23:06 Oxygen Delivery Me thod Nasal Cannula 04/04/23 23:06 Oxygen Flow Rate 2 04/04/23 23:06 MDM - SOB/Dyspnea Medical Decision Making Vitals are stable on oxygen. He has improved after breathing treatment here. Laboratory shows a white blood cell count of 15.6. Creatinine is baseline at 1.4. BNP is slightly elevated at 1500. Swabs for influenza and COVID-19 are negative. UA is not remarkable. Chest X-ray is negative, save some bibasilar atelectasis. With improvement in his symptoms, he'll be allowed home with albuterol, and antibiotics. He was also given one dose of dexamethasone here, but we did not continue this secondary to his diabetes for fear of problems with his blood sugar. He also received one dose of Iv lasix here for increased diuresis given his elevated BNP. He is to return for any worsening symptoms. close outpatient follow up. Lab Data 04/04/23 19:57 04/04/23 19:57 Labs/Radiology: Radiology Impressions Chest X-Ray 04/04/23 20:04 IMPRESSION: 1. Sternotomy wires. 2. Cardiomegaly. 3. Bibasilar atelectasis. Laboratory Results WBC 15.58 10^3/uL (3.29-11.43) H 04/04/23 19:57 RBC 4.51 10^6/uL (3.85-5.65) 04/04/23 19:57 Hgb 14.80 g/dL (11.27-16.99) 04/04/23 19:57 Hct 43.1 % (37-53) 04/04/23 19:57 MCV 95.6 fl (82-101) 04/04/23 19:57 MCH 32.8 pg (27-33) 04/04/23 19:57 MCHC 34.3 g/dL (30-55) 04/04/23 19:57 RDW 13.2 % (12.1-15.1) 04/04/23 19:57 Plt Count 180 10^3/cmm (157-399) 04/04/23 19:57 MPV 8.4 fL (7.4-10.4) 04/04/23 19:57 Neut % (Auto) 80.8 % 04/04/23 19:57 Lymph % (Auto) 11.9 % 04/04/23 19:57 [place] % (Auto) 6.1 % 04/04/23 19:57 Eos % (Auto) 0.5 % 04/04/23 19:57 Baso % (Auto) 0.3 % 04/04/23 19:57 Neut # (Auto) 12.60 10^3/uL (1.8-7.7) H 04/04/23 19:57 Lymph # (Auto) 1.9 10^3/uL (0.8-4.8) 04/04/23 19:57 Sierra # (Auto) 1.0 10^3/uL (0.2-0.9) H 04/04/23 19:57 Eos # (Auto) 0.1 10^3/uL (0.0-0.8) 04/04/23 19:57 Baso # (Auto) 0.0 10^3/uL (0.0-0.1) 04/04/23 19:57 Nucleated RBC % (auto) 0 % 04/04/23 19:57 Nucleated RBCs # 0.0 /100WBC 04/04/23 19:57 Sodium 137 mmol/L (136-145) 04/04/23 19:57 Potassium 4.8 mmol/L (3.5-5.1) 04/04/23 19:57 Chloride 101 mmol/L (98-107) 04/04/23 19:57 Carbon Dioxide 27 mmol/L (22-29) 04/04/23 19:57 Anion Gap 13.8 (5-19) 04/04/23 19:57 BUN 31 mg/dL (8-23) H 04/04/23 19:57 Creatinine 1.4 mg/dL (0.7-1.2) H 04/04/23 19:57 GFR Calculation Not Reportable 04/04/23 19:57 Glucose 175 mg/dL (65-115) H 04/04/23 19:57 Calculated Osmolality 295 mOsm/kg (285-295) 04/04/23 19:57 Lactic Acid 1.3 mmol/L (0.5-2.2) 04/04/23 19:57 Calcium 9.4 mg/dL (8.5-10.5) 04/04/23 19:57 Magnesium 1.7 mg/dL (1.7-2.3) 04/04/23 19:57 Total Bilirubin 0.7 mg/dL (0.15-1.2) 04/04/23 19:57 AST 20 U/L (0-40) 04/04/23 19:57 ALT 22 U/L (0-41) 04/04/23 19:57 Alkaline Phosphatase 92 U/L (40-130) 04/04/23 19:57 NT-Pro-B Natriuret Pep 1466 pg/mL (0-450) H 04/04/23 19:57 Total Protein 6.7 g/dL (6.6-8.7) 04/04/23 19:57 Albumin 3.6 g/dL (3.5-5.2) 04/04/23 19:57 Globulin 3.1 g/dL (1.3-4.6) 04/04/23 19:57 Urine Color Yellow (Yellow) 04/04/23 22:10 Urine Appearance Clear (CLEAR) 04/04/23 22:10 Urine pH 5 (5-7) 04/04/23 22:10 Ur Specific [place] 1.005 (1.005-1.030) 04/04/23 22:10 Urine Protein Neg (Negative) 04/04/23 22:10 Urine Glucose (UA) Norm (Normal) 04/04/23 22:10 Urine Ketones 1+ (Negative) H 04/04/23 22:10 Urine Blood Neg (Negative) 04/04/23 22:10 Urine Nitrate Negative (Negative) 04/04/23 22:10 Urine Bilirubin 1+ (Negative) H 04/04/23 22:10 Prot Sulfosalicylic Acd Negative (Negative) 04/04/23 22:10 Urine Urobilinogen Norm mg/dL (Negative) 04/04/23 22:10 Ur Leukocyte Esterase Negative (Negative) 04/04/23 22:10 Influenza Type A Ag negative (Negative) 04/04/23 20:26 Influenza Type B Ag negative (Negative) 04/04/23 20:26 SARS-CoV-2 Ag (Rapid) negative (Negative) 04/04/23 20:26 All radiology interpretation(s) finalized by discharge Discharge Plan Discharge Patient Disposition: Home Clinical Impression: Bronchitis Condition: Stable Prescriptions: New albuterol sulfate 90 mcg/actuation HFA aerosol inhaler 2 inh INHALATION Q4H PRN (Reason: shortness of breath or wheezing) Qty: 6.7 1RF doxycycline hyclate 100 mg tablet 100 mg PO BID 7 Days Qty: 14 0RF No Action Lasix 40 mg tablet 40 mg PO DAILY@0900 Qty: 90 2RF donepezil 5 mg tablet 5 mg PO DAILY tamsulosin 0.4 mg capsule 0.4 mg PO BID Qty: 180 3RF buspirone 5 mg tablet 5 mg PO DAILY memantine 5 mg tablet 5 mg PO QAM duloxetine 20 mg capsule,delayed release(DR/EC) 20 mg PO BID Ozempic 0.25 mg or 0.5 mg (2 mg/3 mL) pen injector SUBCUT fluticasone propionate [Flonase Allergy Relief] 50 mcg/actuation spray,suspension 1 spray intranasal BID PRN (Reason: allergy symptoms) Qty: 16 0RF Rx Instructions: administer into each nostril carvedilol 6.25 mg tablet 12.5 mg PO BID Eliquis 2.5 mg tablet 2.5 mg PO BID Qty: 180 1RF atorvastatin 80 mg Tablet 80 mg PO BEDTIME@1900 magnesium oxide [MagOx] 400 mg (241.3 mg magnesium) Tablet 400 mg PO DAILY@0900 calcium polycarbophil 625 mg Tablet 1,250 mg PO DAILY@0900 omeprazole 20 mg Tablet,Delayed Release (Dr/Ec) 20 mg PO BID@0900,1900 [place] 3-6-9 1,200 mg Capsule 1 cap PO BID@0900,1900 cholecalciferol (vitamin D3) [Vitamin D3] 50 mcg (2,000 unit) tablet 2,000 unit PO DAILY@0900 insulin aspart U-100 [Novolog FlexPen U-100 Insulin] 100 unit/mL (3 mL) insulin pen See Rx Instructions SUBCUT TID Rx Instructions: SLIDING SCALE SUBCUT three times daily; SLIDING SCALE Lantus U-100 Insulin See Rx Instructions .ROUTE .COMPLEX Rx Instructions: PT USES A SLIDING SCALE aspirin 81 mg Tablet,Delayed Release (Dr/Ec) 81 mg PO DAILY@0900 finasteride 5 mg Tablet 5 mg PO DAILY@0900 Discharge Orders: Discharge ED (Routine); Ordered 04/04/23 Ordered By: Spencer Diaz Referrals: Sam Fay, DO [Primary Care Provider] - Patient Instructions: Acute Bronchitis (ED), Opioid Safety, Pain Management Activity Restrictions/Additional Instructions: Return for worsening shortness of breath despite treatment, significant chest discomfort, fever despite 2-3 doses of antibiotics, other concerning symptoms. See your doctor next week. Coding Level of Care Code ED Rat Poisoner for Nathaniel Alicea
== END 2023-04-05 00:44 | disposition home or self-care (01) ==
PROVIDERS: Emergency Provider Emergency Medicine; PCP Emergency Medicine Emergency Medical Services
DX: J40 Bronchitis, not specified as acute or chronic (principal); Z79.01 Long term (current) use of anticoagulants; Z79.82 Long term (current) use of aspirin; Z79.4 Long term (current) use of insulin; Z11.52 Encounter for screening for COVID-19; E11.9 Type 2 diabetes mellitus without complications; I11.0 Hypertensive heart disease with heart failure; I50.9 Heart failure, unspecified; I25.10 Atherosclerotic heart disease of native coronary artery without angina pectoris; Z95.1 Presence of aortocoronary bypass graft; Z87.891 Personal history of nicotine dependence
CPT/HCPCS: 36415; 71045; 80048; 80053; 81003; 83605; 83735; 83880; 85025; 87040; 87426; 87804; 93005; 94640; 96374; 96375; 99285; J1100; J1940

== ENCOUNTER 2023-04-07 19:18 | Emergency (ER) | payer OTHER, SELFPAY ==
[2023-04-07 19:19] VITALS: BP 118/66; PULSE 94; RESP 24; TEMP 36.6; O2SAT 96; BMI 30.5
--- NOTE | 2023-04-07 19:31 | XRR_ITS ---
PROCEDURE INFORMATION: Exam: XR Chest Exam date and time: 04/07/2023 7:38 PM Age: 82 years old Clinical indication: Shortness of breath; Prior surgery; Surgery date: 6+ months; Surgery type: Open heart loop recorder TECHNIQUE: Imaging protocol: Radiologic exam of the chest. Views: 1 view. COMPARISON: CR (CHEST, ) 04/04/2023 8:23 PM FINDINGS: Lungs: Increased interstitial markings with peribronchial cuffing in the lung periphery are nonspecific but can be seen the setting of bronchitis, pulmonary vascular congestion, viral infection and small-vessel airways disease. Pleural spaces: Unremarkable. No pleural effusion. No pneumothorax. Heart/Mediastinum: Unremarkable. No cardiomegaly. Bones/joints: Prior median sternotomy and CABG. XR/XR chest 1V portable [id number] IMPRESSION: Increased interstitial markings with peribronchial cuffing in the lung periphery are nonspecific but can be seen the setting of bronchitis, pulmonary vascular congestion, viral infection and small-vessel airways disease.
--- NOTE | 2023-04-07 19:32 | ECG_ITS ---
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 [id number]
[2023-04-07 19:59] LABS: Basophils % 0.2 %; Eosinophils % 0.2 %; Hematocrit 39.7 % (37-53); Lymphocytes # 1.1 10^3/uL (0.8-4.8); Lymphocytes % 11.7 %; Mean Corpuscular Hemoglobin 31.4 pg (27-33); Mean Corpuscular Volume 95.2 fl (82-101); Mean Platelet Volume 8.7 fL (7.4-10.4); Monocytes # 0.7 10^3/uL (0.2-0.9); Monocytes % 7.5 %; Neutrophils # 7.74 10^3/uL (1.8-7.7); Neutrophils % 80.1 %; Nucleated Red Blood Cells % 0 %; Platelet Count 178 10^3/cmm (157-399); Red Blood Count 4.17 10^6/uL (3.85-5.65); Red Cell Distribution Width 13.4 % (12.1-15.1); White Blood Count 9.67 10^3/uL (3.29-11.43)
[2023-04-07 20:02] VITALS: BP 118/66; PULSE 92; RESP 16; O2SAT 94
--- NOTE | 2023-04-07 20:10 | ED_ITS ---
HPI - SOB/Dyspnea 2 General: Chief Complaint: Shortness of Breath/Dyspnea Stated Complaint: SOB Time Seen by Provider: 04/07/23 19:20 History of Present Illness: HPI Narrative: Patient presents to the ER after trying to get up off the couch this morning he stood up he felt lightheaded kind of spaced out grandson was able to try to get his attention but could not so this excited the daughter who called EMS. Patient says he does this occasionally and has been worked up for syncope multiple times in the past with no success patient has no complaints now is 100% back to normal. Patient was seen here couple days ago diagnosed with bronchitis and put on antibiotics which he did not get filled till yesterday. Patient was also instructed to turn his home oxygen up from 2 L to 4 L as he needs it. During exam patient is resting comfortably in bed with nasal cannula off to the side blowing into his cheek with no problem in his nose. Patient satting 96% Review of Systems 2 General: Reports: 10 or more systems reviewed and unremarkable except in HPI and below PFSH ED 2 PFSH: Medical History Atrial fibrillation Urgency incontinence Benign prostatic hyperplasia with lower urinary tract symptoms Leg weakness, bilateral Numbness and tingling of both legs Urolithiasis Carotid bruit Syncope Diabetes mellitus Heart disease Hypertension CHF (congestive heart failure) Renal failure Pulmonary edema Hypomagnesemia CAD (coronary artery disease) This patient had a coronary bypass surgery in 2008 along with a mitral valve repair and a maze procedure, at the [facility] in [place]. Surgical History History of mitral valve replacement with bioprosthetic valve S/P ureteral stent placement Hx of CABG Family History Mother , AT AGE 86 No problems noted. Father , AT AGE 65 Stroke Other Hyperlipidemia Hypertension Social History Smoking and tobacco/nicotine status: former use of tobacco/nicotine Alcohol intake: never Substance/Drug Use: never Lives independently: Yes Marital status: / Current occupational status: retired Physical Exam 2 Const: COMMON NORMALS: no acute distress, average body habitus, patient oriented x3, no limitations, healthy appearing, alert and well nourished HENMT: COMMON NORMALS: normocephalic, atraumatic, hearing grossly normal bilaterally, external ears normal, Normal external nose present, moist oral mucous membranes and oropharynx normal HEAD & SCALP: normocephalic and atraumatic NOSE: Normal external nose present EXTERNAL EAR: Yes external ears normal Neck/C-Spine: COMMON NORMALS: full ROM, no lymphadenopathy, supple, no meningeal signs, no JVD and Thyroid normal THYROID: Thyroid normal Chest: COMMONS NORMALS: normal inspection of the chest and normal palpation of entire chest wall Resp: COMMON NORMALS: normal respiratory effort, No retractions, No use of accessory muscles and clear to auscultation bilaterally AUSCULTATION: clear to auscultation bilaterally Cardio: COMMON NORMALS: no JVD, regular rate, regular rhythm, S1 normal heart sound present, S2 normal heart sound present, No gallops present (Cardio), No clicks present (Cardio), No murmurs present (Cardio) and No rub (Cardio) R ATE: regular rate RHYTHM: regular rhythm HEART SOUNDS: S1 normal heart sound present and S2 normal heart sound present GI: COMMON NORMALS: Normal to inspection, nondistended, normoactive bowel sounds present, Soft to palpation, non-tender, No hepatosplenomegaly present and no masses PALPATION: Yes Soft to palpation and Yes No hepatosplenomegaly present Neuro: COMMON NORMALS: patient oriented x3 SENSORIUM/ORIENTATION: Yes alert MENINGEAL SIGNS: Yes no meningeal signs Course 2 Vital Signs: Vital signs: Vital Signs Temperature 97.9 F 04/07/23 20:47 Pulse Rate 92 04/07/23 20:47 Respiratory Rate 16 04/07/23 20:47 Blood Pressure 118/66 04/07/23 20:47 Pulse Oximetry 94 04/07/23 20:47 Oxygen Delivery Me thod Nasal Cannula 04/07/23 20:02 Oxygen Flow Rate 4 04/07/23 20:02 MDM - SOB/Dyspnea Medical Decision Making Patient CBC CMP EKG and chest x-ray are performed. These were all unchanged or benign. Patient be discharged home to continue the antibiotics and inhaler from previous visit. Differential Diagnosis Unlikely acute exacerbation of chronic obstructive airways disease, congestive heart failure, community acquired pneumonia, asthma with exacerbation or pulmonary embolism Medical Records I reviewed the patient's medical records. Lab Data I reviewed the patient's lab results. 04/07/23 19:45 04/07/23 19:45 Labs/Radiology: Radiology Impressions Chest X-Ray 04/07/23 19:31 IMPRESSION: Increased interstitial markings with peribronchial cuffing in the lung periphery are nonspecific but can be seen the setting of bronchitis, pulmonary vascular congestion, viral infection and small-vessel airways disease. Laboratory Results WBC 9.67 10^3/uL (3.29-11.43) 04/07/23 19:45 RBC 4.17 10^6/uL (3.85-5.65) 04/07/23 19:45 Hgb 13.10 g/dL (11.27-16.99) 04/07/23 19:45 Hct 39.7 % (37-53) 04/07/23 19:45 MCV 95.2 fl (82-101) 04/07/23 19:45 MCH 31.4 pg (27-33) 04/07/23 19:45 MCHC 33.0 g/dL (30-55) 04/07/23 19:45 RDW 13.4 % (12.1-15.1) 04/07/23 19:45 Plt Count 178 10^3/cmm (157-399) 04/07/23 19:45 MPV 8.7 fL (7.4-10.4) 04/07/23 19:45 Neut % (Auto) 80.1 % 04/07/23 19:45 Lymph % (Auto) 11.7 % 04/07/23 19:45 Ward % (Auto) 7.5 % 04/07/23 19:45 Eos % (Auto) 0.2 % 04/07/23 19:45 Baso % (Auto) 0.2 % 04/07/23 19:45 Neut # (Auto) 7.74 10^3/uL (1.8-7.7) H 04/07/23 19:45 Lymph # (Auto) 1.1 10^3/uL (0.8-4.8) 04/07/23 19:45 Ward # (Auto) 0.7 10^3/uL (0.2-0.9) 04/07/23 19:45 Eos # (Auto) 0.0 10^3/uL (0.0-0.8) 04/07/23 19:45 Baso # (Auto) 0.0 10^3/uL (0.0-0.1) 04/07/23 19:45 Nucleated RBC % (auto) 0 % 04/07/23 19:45 Nucleated RBCs # 0.0 /100WBC 04/07/23 19:45 Sodium 136 mmol/L (136-145) 04/07/23 19:45 Potassium 4.7 mmol/L (3.5-5.1) 04/07/23 19:45 Chloride 102 mmol/L (98-107) 04/07/23 19:45 Carbon Dioxide 27 mmol/L (22-29) 04/07/23 19:45 Anion Gap 11.7 (5-19) 04/07/23 19:45 BUN 40 mg/dL (8-23) H 04/07/23 19:45 Creatinine 1.3 mg/dL (0.7-1.2) H 04/07/23 19:45 GFR Calculation Not Reportable 04/07/23 19:45 Glucose 162 mg/dL (65-115) H 04/07/23 19:45 Calculated Osmolality 295 mOsm/kg (285-295) 04/07/23 19:45 Calcium 9.1 mg/dL (8.5-10.5) 04/07/23 19:45 Total Bilirubin 0.8 mg/dL (0.15-1.2) 04/07/23 19:45 AST 21 U/L (0-40) 04/07/23 19:45 ALT 20 U/L (0-41) 04/07/23 19:45 Alkaline Phosphatase 75 U/L (40-130) 04/07/23 19:45 Total Protein 6.4 g/dL (6.6-8.7) L 04/07/23 19:45 Albumin 3.2 g/dL (3.5-5.2) L 04/07/23 19:45 Globulin 3.2 g/dL (1.3-4.6) 04/07/23 19:45 All radiology interpretation(s) finalized by discharge EKG Data EKG 1: I personally reviewed and interpreted this EKG as follows: EKG Interpretation Date: 04/07/23 EKG interpretation time: 19:44 Prior EKG tracings: not available for review Interpretation: EKG shows ventricular rate 85 bpm, [place] interval 195, QRS duration 135, QTc of 424, sinus rhythm with occasional PVC, right bundle branch block Discharge Plan Discharge Patient Disposition: Home Clinical Impression: Bronchitis Condition: Stable Prescriptions: No Action Lasix 40 mg tablet 40 mg PO DAILY@0900 Qty: 90 2RF donepezil 5 mg tablet 5 mg PO DAILY tamsulosin 0.4 mg capsule 0.4 mg PO BID Qty: 180 3RF buspirone 5 mg tablet 5 mg PO DAILY memantine 5 mg tablet 5 mg PO QAM duloxetine 20 mg capsule,delayed release(DR/EC) 20 mg PO BID Ozempic 0.25 mg or 0.5 mg (2 mg/3 mL) pen injector SUBCUT fluticasone propionate [Flonase Allergy Relief] 50 mcg/actuation spray,suspension 1 spray intranasal BID PRN (Reason: allergy symptoms) Qty: 16 0RF Rx Instructions: administer into each nostril carvedilol 6.25 mg tablet 12.5 mg PO BID Eliquis 2.5 mg tablet 2.5 mg PO BID Qty: 180 1RF atorvastatin 80 mg Tablet 80 mg PO BEDTIME@1900 magnesium oxide [MagOx] 400 mg (241.3 mg magnesium) Tablet 400 mg PO DAILY@0900 calcium polycarbophil 625 mg Tablet 1,250 mg PO DAILY@0900 omeprazole 20 mg Tablet,Delayed Release (Dr/Ec) 20 mg PO BID@0900,1900 [place] 3-6-9 1,200 mg Capsule 1 cap PO BID@0900,1900 cholecalciferol (vitamin D3) [Vitamin D3] 50 mcg (2,000 unit) tablet 2,000 unit PO DAILY@0900 insulin aspart U-100 [Novolog FlexPen U-100 Insulin] 100 unit/mL (3 mL) insulin pen See Rx Instructions SUBCUT TID Rx Instructions: SLIDING SCALE SUBCUT three times daily; SLIDING SCALE Lantus U-100 Insulin See Rx Instructions .ROUTE .COMPLEX Rx Instructions: PT USES A SLIDING SCALE aspirin 81 mg Tablet,Delayed Release (Dr/Ec) 81 mg PO DAILY@0900 finasteride 5 mg Tablet 5 mg PO DAILY@0900 albuterol sulfate 90 mcg/actuation HFA aerosol inhaler 2 inh INHALATION Q4H PRN (Reason: shortness of breath or wheezing) Qty: 6.7 1RF doxycycline hyclate 100 mg tablet 100 mg PO BID 7 Days Qty: 14 0RF Discharge Orders: Discharge ED (Routine); Ordered 04/07/23 Ordered By: Mao Ireland Referrals: Sam Fay DO [Primary Care Provider] - Patient Instructions: Bronchitis (Acute) - Adult Activity Restrictions/Additional Instructions: Please continue all medicines as directed especially antibiotics inhaler from the previous visit. Please use your oxygen up to 4 L/min as directed. Please follow-up with your family practice physician within next 7 days for further evaluation and treatment. If your symptoms worsen please return to the ER. Coding Level of Care Code ED Fisher Trammel Net for Nathaniel Alicea
[2023-04-07 20:19] LABS: Alanine Aminotransferase 20 U/L (0-41); Albumin Level 3.2 g/dL (3.5-5.2); Alkaline Phosphatase 75 U/L (40-130); Blood Urea Nitrogen 40 mg/dL (8-23); Calcium 9.1 mg/dL (8.5-10.5); Carbon Dioxide 27 mmol/L (22-29); Chloride 102 mmol/L (98-107); Globulin 3.2 g/dL (1.3-4.6); Glucose 162 mg/dL (65-115); Osmolality Calculated 295 mOsm/kg (285-295); Sodium 136 mmol/L (136-145); Total Bilirubin 0.8 mg/dL (0.15-1.2); Total Protein 6.4 g/dL (6.6-8.7)
[2023-04-07 20:25] LABS: Anion Gap 11.7 (5-19); Aspartate Amino Transferase 21 U/L (0-40); Potassium 4.7 mmol/L (3.5-5.1)
[2023-04-07 20:47] VITALS: BP 118/66; PULSE 92; RESP 16; TEMP 36.6; O2SAT 94
== END 2023-04-07 20:48 | disposition home or self-care (01) ==
PROVIDERS: Emergency Provider Emergency Medicine; PCP Emergency Medicine Emergency Medical Services
DX: J40 Bronchitis, not specified as acute or chronic (principal); Z79.01 Long term (current) use of anticoagulants; Z79.82 Long term (current) use of aspirin; Z79.4 Long term (current) use of insulin; E11.9 Type 2 diabetes mellitus without complications; I11.0 Hypertensive heart disease with heart failure; I50.9 Heart failure, unspecified; I25.10 Atherosclerotic heart disease of native coronary artery without angina pectoris; Z95.1 Presence of aortocoronary bypass graft; Z87.891 Personal history of nicotine dependence
CPT/HCPCS: 71045; 80053; 85025; 93005; 99285

== ENCOUNTER 2023-04-14 11:40 | Inpatient (IN) | payer OTHER, SELFPAY ==
[2023-04-14] VITALS (9 sets, daily range): BP systolic 124–145; BP diastolic 56–91; PULSE 96–115; RESP 16–20; TEMP 36.4–36.7; O2SAT 92–98; BMI 30.5
--- NOTE | 2023-04-14 11:46 | XR_ITS ---
WS: [id number] XR chest 1V portable [id number] REASON FOR EXAM: dyspnea/cough FINDINGS: The chest is similar in appearance to most recent examination of 04/07/2023. However, in comparison to examinations of 04/04/2023 and 02/27/2020 the reticular interstitial densities in the mid and lower l nicho guaman are more prominent and may represent early congestive failure. The heart is enlarged. IMPRESSION: Possible early congestive failure.
--- NOTE | 2023-04-14 11:47 | ED_ITS ---
HPI - SOB/Dyspnea 2 General: Chief Complaint: Shortness of Breath/Dyspnea Stated Complaint: SOB Time Seen by Provider: 04/14/23 11:41 Source: patient Mode of arrival: ambulatory History of Present Illness: HPI Narrative: 82-year-old male with history of congest dusty heart failure presents emergency room complaining of week to week and a half of increasing shortness of breath productive sputum cough. He is has history of condition heart failure has chronic orthopnea has noticed worsening slightly the last week and a half has not noticed particular fever sweats or chills. Denies chest pain or abdominal pain MD elicited complaint: shortness of breath and cough Pertinent past history: COPD and congestive heart failure Associated symptoms: Reports chest congestion, chest pain, cough and nausea; Deny abdominal pain, diaphoresis, dizziness, extremity pain, fever(s), hemoptysis, lightheadedness, myalgias, orthopnea, palpitations, paresthesias, polydipsia, polyuria, rash, sense of impending doom, syncope or vomiting Treatment prior to arrival: oxygen, bronchodilator and other (Solu-Medrol) Review of Systems 2 Const: Denies: fever(s), chills or diaphoresis Card: Reports: chest pain; Denies: palpitations, edema, swelling of feet/ankles, lightheadedness, syncope or orthopnea Resp: Reports: dyspnea, productive cough, wheezing and chest congestion; Denies: hemoptysis GI: Reports: nausea; Denies: abdominal pain or vomiting : Denies: dysuria, urinary frequency or urinary urgency Musc: Denies: neck pain, back pain or extremity pain Skin/Breast: Denies: rash Neuro: Denies: dizziness Endo: Denies: polyuria or polydipsia PFSH ED 2 PFSH: Medical History Atrial fibrillation Urgency incontinence Benign prostatic hyperplasia with lower urinary tract symptoms Leg weakness, bilateral Numbness and tingling of both legs Urolithiasis Carotid bruit Syncope Diabetes mellitus Heart disease Hypertension CHF (congestive heart failure) Renal failure Pulmonary edema Hypomagnesemia CAD (coronary artery disease) This patient had a coronary bypass surgery in 2008 along with a mitral valve repair and a maze procedure, at the [facility] in [place]. Surgical History History of mitral valve replacement with bioprosthetic valve S/P ureteral stent placement Hx of CABG Family History Mother , AT AGE 86 No problems noted. Father , AT AGE 65 Stroke Other Hyperlipidemia Hypertension Social History Smoking and tobacco/nicotine status: former use of tobacco/nicotine Alcohol intake: never Substance/Drug Use: never Lives independently: Yes Marital status: / Current occupational status: retired Physical Exam 2 Const: GENERAL APPEARANCE: cooperative ORIENTATION/CONSCIOUSNESS: Yes awake, Yes oriented to person, Yes oriented to place and Yes oriented to time HENMT: COMMON NORMALS: normocephalic, atraumatic and hearing grossly normal bilaterally HEAD & SCALP: normocephalic and atraumatic Resp: COMMON NORMALS: normal respiratory effort, No retractions and No use of accessory muscles AUSCULTATION: rhonchi and wheezes Cardio: COMMON NORMALS: regular rate and No murmurs present (Cardio) RATE: regular rate RHYTHM: abnormal rhythm irregularly irregular GI: COMMON NORMALS: Soft to palpation and No hepatosplenomegaly present A USCULTATION: Yes normoactive bowel sounds PALPATION: Yes Soft to palpation, No Tenderness to palpation present (GI), No Guarding due to palpation present (GI) and Yes No hepatosplenomegaly present Extremity: COMMON NORMALS: normal to inspection, capillary refill normal, no clubbing, cyanosis or edema, no calf tenderness and no pedal edema Neuro: SENSORIUM/ORIENTATION: Yes oriented to person, Yes oriented to place and Yes oriented to time Skin: COMMON NORMALS: no rashes or lesions noted GENERAL SKIN EXAM: no rashes or lesions noted Course 2 Vital Signs: Vital signs: Vital Signs Temperature 97.5 F L 04/14/23 11:43 Pulse Rate 98 04/14/23 12:01 Respiratory Rate 16 04/14/23 12:01 Blood Pressure 136/91 04/14/23 12:01 Pulse Oximetry 98 04/14/23 12:01 Oxygen Delivery Me thod Nasal Cannula 04/14/23 11:43 Oxygen Flow Rate 5 04/14/23 11:43 MDM - SOB/Dyspnea Medical Decision Making Patient with productive cough increased oxygen need. Think he has some mild fluid overload and will require diuresis also concerned about the productive cough. He had some improvement with nebulizers and route will give another nebulizer here admit started on IV antibiotics diurese he did not respond much to the initial IV Lasix he was given. Will place a Parker to ensure he is not having urinary retention. Discussed with hospitalist orders written Differential Diagnosis Likely acute exacerbation of chronic obstructive airways disease, congestive heart failure and community acquired pneumonia Medical Records I reviewed the patient's medical records. Lab Data I reviewed the patient's lab results. 04/14/23 12:03 04/14/23 12:03 Labs/Radiology: Laboratory Results WBC 11.18 10^3/uL (3.29-11.43) 04/14/23 12:03 RBC 4.21 10^6/uL (3.85-5.65) 04/14/23 12:03 Hgb 13.40 g/dL (11.27-16.99) 04/14/23 12:03 Hct 40.7 % (37-53) 04/14/23 12:03 MCV 96.7 fl (82-101) 04/14/23 12:03 MCH 31.8 pg (27-33) 04/14/23 12:03 MCHC 32.9 g/dL (30-55) 04/14/23 12:03 RDW 13.3 % (12.1-15.1) 04/14/23 12:03 Plt Count 199 10^3/cmm (157-399) 04/14/23 12:03 MPV 9.0 fL (7.4-10.4) 04/14/23 12:03 Neut % (Auto) 82.4 % 04/14/23 12:03 Lymph % (Auto) 12.1 % 04/14/23 12:03 Butler % (Auto) 4.9 % 04/14/23 12:03 Eos % (Auto) 0.1 % 04/14/23 12:03 Baso % (Auto) 0.2 % 04/14/23 12:03 Neut # (Auto) 9.22 10^3/uL (1.8-7.7) H 04/14/23 12:03 Lymph # (Auto) 1.4 10^3/uL (0.8-4.8) 04/14/23 12:03 Butler # (Auto) 0.6 10^3/uL (0.2-0.9) 04/14/23 12:03 Eos # (Auto) 0.0 10^3/uL (0.0-0.8) 04/14/23 12:03 Baso # (Auto) 0.0 10^3/uL (0.0-0.1) 04/14/23 12:03 Nucleated RBC % (auto) 0 % 04/14/23 12:03 Nucleated RBCs # 0.0 /100WBC 04/14/23 12:03 Sodium 135 mmol/L (136-145) L 04/14/23 12:03 Potassium 4.5 mmol/L (3.5-5.1) 04/14/23 12:03 Chloride 99 mmol/L (98-107) 04/14/23 12:03 Carbon Dioxide 26 mmol/L (22-29) 04/14/23 12:03 Anion Gap 14.5 (5-19) 04/14/23 12:03 BUN 30 mg/dL (8-23) H 04/14/23 12:03 Creatinine 1.2 mg/dL (0.7-1.2) 04/14/23 12:03 GFR Calculation Not Reportable 04/14/23 12:03 Glucose 222 mg/dL (65-115) H 04/14/23 12:03 Calculated Osmolality 293 mOsm/kg (285-295) 04/14/23 12:03 Lactic Acid 1.4 mmol/L (0.5-2.2) 04/14/23 12:17 Calcium 9.7 mg/dL (8.5-10.5) 04/14/23 12:03 Total Bilirubin 0.9 mg/dL (0.15-1.2) 04/14/23 12:03 AST 23 U/L (0-40) 04/14/23 12:03 ALT 25 U/L (0-41) 04/14/23 12:03 Alkaline Phosphatase 77 U/L (40-130) 04/14/23 12:03 Troponin T Baseline 30 ng/L (0-15) H 04/14/23 12:03 NT-Pro-B Natriuret Pep 2735 pg/mL (0-450) H 04/14/23 12:03 Total Protein 6.6 g/dL (6.6-8.7) 04/14/23 12:03 Albumin 2.8 g/dL (3.5-5.2) L 04/14/23 12:03 Globulin 3.8 g/dL (1.3-4.6) 04/14/23 12:03 Influenza Type A Ag negative (Negative) 04/14/23 12:00 Influenza Type B Ag negative (Negative) 04/14/23 12:00 All radiology interpretation(s) finalized by discharge Discharge Plan Discharge Patient Disposition: Placed in Observation Clinical Impression: Acute exacerbation of chronic obstructive airways disease, Community acquired pneumonia CHF (congestive heart failure) Qualifiers: Heart failure type: diastolic Heart failure chronicity: chronic Qualified Code(s): I50.32 - Chronic diastolic (congestive) heart failure Benign prostatic hyperplasia with lower urinary tract symptoms Qualifiers: Lower urinary tract symptom detail: urinary frequency Qualified Code(s): N40.1 - Benign prostatic hyperplasia with lower urinary tract symptoms Atrial fibrillation Qualifiers: Atrial fibrillation type: paroxysmal Qualified Code(s): I48.0 - Paroxysmal atrial fibrillation Coding Level of Care Code ED Cellular Biologist for Nathaniel Alicea
--- NOTE | 2023-04-14 11:52 | ECG_ITS ---
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 Measurements Intervals [place] Rate: 90 P: 80 LA: 170 QRS: 76 QRSD: 150 T: -15 QT: 386 QTc: 473 Interpretive Statements SINUS RHYTHM WITH FREQUENT SUPRAVENTRICULAR PREMATURE COMPLEXES RIGHT BUNDLE BRANCH BLOCK [120+ ms QRS DURATION, UPRIGHT V1, 40+ ms S IN I/aVL/V4/V5/V6] Compared to ECG 04/07/2023 19:44:38 Myocardial infarct finding no longer present Electronically Signed On 04-14-2023 13:42:41 ELECTRIC POWERLINE EXAMINER by Alexi Orona M.D. [email or web address]
--- NOTE | 2023-04-14 11:59 | PC.PHAR ---
Addendum entered by America Wei 04/14/23 15:26: *for ~1 year Addendum entered by America Wei 04/14/23 15:23: pts daughter in law states pt was seen in the er 04/07/23 states the pt was given a dose of lasix in the er and told to continue lasix at home which pt thought he [facility] pts daughter in law states she called the [facility] and va told her the pt hadnt taken lasix from ~1 year-states the pt has no lasix at home Addendum entered by America Wei 04/14/23 14:02: medications entered are from the medication bottles the pts daughter in law brought in and what the pt and daughter in law states the pt takes-pt brought in med bottle for carvedilol 12.5mg take 1/2 tabs 6.25mg bid pts daughter in law and pt states the pt has a 25mg tab at home and takes 1/2 tab 12.5mg bid-pts daughter in law states the pt has been out of eliquis 2.5mg bid since 04/09/23-pts daughter in law states the pt has a novolog flexpen and uses ss tid and also has a lantus vial states uses ss bid normally 30 units hs and sometimes no other dose-daughter in law states pt is suppose to use 60 units bid-pts daughter in law states the pt has been out of his ozempic 0.5mg q7d on thu for 3 weeks-pts daughter in law states the pt finished his doxycycline hyc 100mg bid x7 day on thursday04/12/23- Addendum entered by America Wei 04/14/23 12:27: crystal still not in room Addendum entered by America Wei 04/14/23 12:01: pts daughter in law states the pt hasnt taken any medications today Original Note: pt states his daughter in law cyrstal [phone] helps him with his medications-crystal states she is on her way to the hospital and that she brought the pts medications with her-will update med rec when pts family gets here with meds-also faarianneg sc for med list
[2023-04-14 12:07] LABS: Basophils % 0.2 %; Eosinophils % 0.1 %; Hematocrit 40.7 % (37-53); Lymphocytes # 1.4 10^3/uL (0.8-4.8); Lymphocytes % 12.1 %; Mean Corpuscular HGB Conc 32.9 g/dL (30-55); Mean Corpuscular Hemoglobin 31.8 pg (27-33); Mean Corpuscular Volume 96.7 fl (82-101); Monocytes # 0.6 10^3/uL (0.2-0.9); Monocytes % 4.9 %; Neutrophils # 9.22 10^3/uL (1.8-7.7); Neutrophils % 82.4 %; Nucleated Red Blood Cells % 0 %; Platelet Count 199 10^3/cmm (157-399); Red Blood Count 4.21 10^6/uL (3.85-5.65); Red Cell Distribution Width 13.3 % (12.1-15.1); White Blood Count 11.18 10^3/uL (3.29-11.43)
[2023-04-14] MEDS: FUROsemide 10 mg/mL SDV 10mL 80 MG IVP (12:21)
[2023-04-14] MEDS: levofloxacin-dextrose 5 % 750 MG/150 ML PREMIX 100 MG IV (12:22)
[2023-04-14 12:37] LABS: Influenza A by IFA negative (Negative); Influenza B by IFA negative (Negative)
[2023-04-14 12:49] LABS: Alanine Aminotransferase 25 U/L (0-41); Albumin Level 2.8 g/dL (3.5-5.2); Alkaline Phosphatase 77 U/L (40-130); Aspartate Amino Transferase 23 U/L (0-40); Blood Urea Nitrogen 30 mg/dL (8-23); Calcium 9.7 mg/dL (8.5-10.5); Carbon Dioxide 26 mmol/L (22-29); Chloride 99 mmol/L (98-107); Globulin 3.8 g/dL (1.3-4.6); Glucose 222 mg/dL (65-115); NT Pro B Type Natriuretic Pept 2735 pg/mL (0-450); Osmolality Calculated 293 mOsm/kg (285-295); Sodium 135 mmol/L (136-145); Total Bilirubin 0.9 mg/dL (0.15-1.2); Total Protein 6.6 g/dL (6.6-8.7)
[2023-04-14 12:55] LABS: Anion Gap 14.5 (5-19); Potassium 4.5 mmol/L (3.5-5.1)
[2023-04-14 12:59] LABS: Troponin(5th) Baseline 30 ng/L (0-15)
[2023-04-14 12:59] LABS: Lactic Sepsis W/Reflex 1.4 mmol/L (0.5-2.2)
--- NOTE | 2023-04-14 13:47 | ECG_ITS ---
[facility] Test Date: 2023-04-14 Pat Name: Jose Armendariz Department: Room: Gender: Male Drier Feeder: : 1940 Requested By: Wilver Johnson Order Number: [id number] Rebeca MD: Alexi Orona M.D. Measurements Intervals [place] Rate: 103 P: 108 IA: 175 QRS: 79 QRSD: 134 T: -7 QT: 335 QTc: 439 Interpretive Statements SINUS TACHYCARDIA WITH OCCASIONAL SUPRAVENTRICULAR PREMATURE COMPLEXES RIGHT BUNDLE BRANCH BLOCK [120+ ms QRS DURATION, UPRIGHT V1, 40+ ms S IN I/aVL/V4/V5/V6] Compared to ECG 04/14/2023 11:52:25 Sinus rhythm no longer present Electronically Signed On 04-14-2023 16:43:48 BEE KEEPER by Alexi Orona M.D. [email or web address]
[2023-04-14 14:04] LABS: Adenovirus Not Detected (NOT DETECT); Chlamydia Pneumoniae Not Detected (NOT DETECT); Coronavirus 229E,HKU1,NL63,OC4 Not Detected (NOT DETECT); Human Metapneumovirus Not Detected (NOT DETECT); Human Rhinovirus/Enterovirus Not Detected (NOT DETECT); Influenza A Not Detected (NOT DETECT); Influenza A H1 Not Detected (NOT DETECT); Influenza A H1-2009 Not Detected (NOT DETECT); Influenza A H3 Not Detected (NOT DETECT); Influenza B Not Detected (NOT DETECT); Mycoplasma Pneumoniae Not Detected (NOT DETECT); Parainfluenza Virus Type 1 Not Detected (NOT DETECT); Parainfluenza Virus Type 2 Not Detected (NOT DETECT); Parainfluenza Virus Type 3 Not Detected (NOT DETECT); Parainfluenza Virus Type 4 Not Detected (NOT DETECT); Respiratory Syncytial Virus A Not Detected (NOT DETECT); Respiratory Syncytial Virus B Not Detected (NOT DETECT); SARS-COV-2 Not Detected (NOT DETECT)
[2023-04-14 14:24] LABS: Troponin 5 2HR 31.39 ng/L (0-15); Troponin 5 2HR Delta 1.39 ABS# (0-10)
[2023-04-14 14:25] LABS: Add Urine Microscopic? NO; Charge for UA Resulting for Rev
[2023-04-14 14:30] LABS: Bilirubin Urine Neg (Negative); Blood Urine Neg (Negative); Glucose Urine UA Norm (Normal); Ketones Urine 1+ (Negative); Leukocyte Esterase Urine Negative (Negative); Nitrate Urine Negative (Negative); Protein Urine Neg (Negative); Urine Appearance Clear (CLEAR); Urine Color Yellow (Yellow); Urobilinogen Urine Norm (Negative); pH Urine 5 (5-7)
[2023-04-14] MEDS: ipratropium-albuterol 3 mL Neb INHALATION (15:18)
--- NOTE | 2023-04-14 15:50 | P.HP_ITS ---
Providers/Chief Complaint 2 Admitting Physician: Cristina Morel MD Primary Care Provider: Sam Fay DO Chief Complaint: SOB History of Present Illness Jose Armendariz is a 82 year old male who presented to the emergency room with chief complaint of difficulty breathing. He has had several ER visits over the last week with similar symptoms. He has a history of coronary artery disease with two-vessel CABG, mitral valve replacement and Maze procedure, atrial fibrillation and chronic CHF with preserved ejection fraction for which he is on chronic oxygen at 4 to 5 L by nasal cannula. He also has known chronic kidney disease stage III. He follows at the [facility] with Dr. Patterson. 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 He had previously seen a urologist for prostatic hypertrophy. The urologist had prescribed Lasix for him sometime ago in addition to the tamsulosin and finasteride. More than a year ago, when he quit going to see the urologist regularly, his prescription for Lasix ran out and it was not prescribed by any of his other providers. Reviewing various records indicate several specialties thought he was still on diuretic therapy when in fact he has not been. He describes significant nocturia every 2-4 hours a night. He sleeps in a hospital bed to avoid sleeping in a fully supine position. He intermittently will have ankle edema. No recent episodes of chest pain. Lately upon arising his uuvoyoko-qc-rqx has noticed that he is confused sometimes in the morning. He has been referred for a sleep study but that is not scheduled until May. He had been diagnosed with sleep apnea in the past but underwent tonsillectomy and adenoidectomy as well as some type of sinus surgery and his sleep apnea was resolved on a follow-up study. Nevertheless there is been some suspicion that he may have sleep apnea again. Today when he got up he was lightheaded and more spacey than usual. He did not have much of an appetite and his iuapjbcu-qj-mhu was quite worried. In addition he was wheezing quite a bit. Mr. Armendariz had been seen by Dr. Zimmerman on April 02 and was doing okay at that point in time. A couple of days later however on April 05 he presented to the emergency room with increasing cough occasionally productive of yellowish sputum. Sick contacts were also noted at that visit. He received a breathing treatment with clinical improvement. He was discharged home with antibiotics and nebulizer treatments and did receive 1 dose of dexamethasone. Despite this he returned to the emergency room on April 07 with a very similar presentation to today. His oxygen had been increased but workup was otherwise unrevealing. Recommendations were to continue previously prescribed doxycycline and breathing treatments. He was also told to continue his Lasix. Review of records going back for the past year shows furosemide 40 mg p.o. daily on his medication list. [facility], however, [facility] than [facility]. From history obtained, it sounds like nocturia and respiratory issues have worsened since he came off of Lasix. He had been going to cardiac rehab but stopped because I am lazy . Noted to have exertional hypoxemia at cardiac rehab. Has not been seen by pulmonology previously. Remote history of smoking having quit in 1970s, less than 10 pack years by history. In the emergency room today patient was noted to be wheezing and tachycardic on presentation. He was on 5 L by nasal cannula up from 4 L which had been increased from 2 L recently. He received breathing treatment and Levaquin initially. Chest x-ray demonstrated cardiomegaly and interstitial edema and BNP was elevated from prior values. Subsequently received 80 mg of IV Lasix. Request was made for admission for further evaluation and treatment. He does have chronic kidney disease stage III. He has an appointment set up with nephrology in June. He has started having urine output from Lasix and breathing has improved. Review of Systems 2 General: Reports: Other (ROS as per HPI or as otherwise noted here) Const: Denies: fever(s) Card: Reports: edema and lightheadedness; Denies: chest pain GI: Denies: abdominal pain or hematochezia : Reports: urinary dribbling and nocturia; Denies: difficulty urinating or hematuria Skin/Breast: Denies: new lesions Neuro: Reports: confusion (In the morning) and other (Extensive peripheral neuropathy); Denies: seizure-like activity Medications/Allergies Home Medications Medication Instructions Recorded Confirmed Last Taken Type atorvastatin 80 mg tablet 80 mg PO BEDTIME 03/31/19 04/14/23 04/13/23 History calcium polycarbophil 625 mg tablet 1,250 mg PO DAILY 03/31/19 04/14/23 04/13/23 History magnesium oxide 400 mg (241.3 mg 400 mg PO BID 03/31/19 04/14/23 07/20/20 History magnesium) tablet (MagOx) omeprazole 20 mg tablet,delayed 20 mg PO BID 03/31/19 04/14/23 04/13/23 History release cholecalciferol (vitamin D3) 50 2,000 unit PO QPM 02/14/20 04/14/23 07/20/20 History mcg (2,000 unit) tablet (Vitamin D3) aspirin 81 mg tablet,delayed 81 mg PO BEDTIME 07/20/20 04/14/23 04/13/23 History release finasteride 5 mg tablet 5 mg PO QPM 07/20/20 04/14/23 04/13/23 History tamsulosin 0.4 mg capsule 0.4 mg PO BID #180 caps 09/27/20 04/14/23 04/13/23 Rx insulin aspart U-100 100 unit/mL See Rx Instructions SUBCUT TID 04/04/21 04/14/23 Unknown History (3 mL) subcutaneous pen (Novolog FlexPen U-100 Insulin aspart) duloxetine 20 mg capsule,delayed 20 mg PO BID 09/05/22 04/14/23 04/13/23 History release memantine 5 mg tablet 5 mg PO BID 09/05/22 04/14/23 04/13/23 History semaglutide 0.25 mg or 0.5 mg (2 0.5 mg SUBCUT Q7D 09/05/22 04/14/23 3 Weeks Ago History mg/3 mL) subcutaneous pen injector ~03/24/23 (Ozempic) out for 3 weeks carvedilol 6.25 mg tablet 12.5 mg PO BID 09/23/22 04/14/23 04/13/23 History albuterol sulfate 90 mcg/actuation 2 inh inhalation Q4H PRN shortness 04/04/23 04/14/23 Unknown Rx aerosol inhaler of breath or wheezing #6.7 grams apixaban 2.5 mg tablet (Eliquis) 2.5 mg PO BID atrial fibrillation 04/07/23 04/14/23 04/09/23 Rx #180 tabs pt out of med 04/09/23 Extra Strength Cranberry 15,000 mg PO DAILY 04/14/23 04/14/23 04/13/23 History buspirone 10 mg tablet 5 mg PO TID 04/14/23 04/14/23 04/13/23 History docosahexaenoic acid (dha)-epa 1 cap PO BID 04/14/23 04/14/23 04/13/23 History capsule doxycycline hyclate 100 mg tablet 100 mg PO BID 04/14/23 04/14/23 04/12/23 History finished 04/12/23 insulin glargine 100 unit/mL See Rx Instructions .Route .COMPLEX 04/14/23 04/14/23 Unknown History subcutaneous solution (Lantus U-100 Insulin) pyridoxine (vitamin B6) 100 mg 100 mg PO QAM 04/14/23 04/14/23 04/13/23 History tablet (Vitamin B-6) vitamin B complex 2 tab PO QAM 04/14/23 04/14/23 04/13/23 History Allergies Allergy/AdvReac Type Severity Reaction Status Date / Time lisinopril Allergy ALGY-Rash Verified 04/14/23 13:45 Additional Medication Information Mr. Armendariz has been out of Face-[employer] several weeks. He ran out of of [employer] as well but has had a prescription sent yesterday which should arrive in the next 24 to 48 hours. He has completed doxycycline. PFSH Acute 2 PFSH: Medical History (Updated 04/14/23 @ 19:50 by Cristina Morel MD) Depression Chronic kidney disease Hyperlipidemia Atrial fibrillation Urgency incontinence Benign prostatic hyperplasia with lower urinary tract symptoms Urolithiasis Carotid bruit Syncope Diabetes mellitus Hypertension CHF (congestive heart failure) CAD (coronary artery disease) This patient had a coronary bypass surgery in 2008 along with a mitral valve repair and a maze procedure, at the [facility] in [place]. Surgical History (Updated 04/14/23 @ 19:50 by Cristina Morel MD) History of tonsillectomy and adenoidectomy History of loop recorder placed late 2020 or early 2021 H/O carpal tunnel repair bilateral S/P trigger finger release History of maze procedure History of mitral valve replacement with bioprosthetic valve S/P ureteral stent placement Hx of CABG Family History Mother , AT AGE 86 No problems noted. Father , AT AGE 65 Stroke Other Hyperlipidemia Hypertension Social History Smoking and tobacco/nicotine status: former use of tobacco/nicotine Alcohol intake: never Substance/Drug Use: never Lives independently: Yes Marital status: / Current occupational status: retired Other [facility] information: Supplemental [facility] Information: Patient's bgevmnju-rn-cdt who works in healthcare has been assisting him with his overall health care management and is here with him today Vitals/I&O/Wt Last Vital Signs Temp 97.5 F L 04/14/23 11:43 Pulse 105 H 04/14/23 15:23 Resp 18 04/14/23 15:14 BP 145/81 04/14/23 14:36 Pulse Ox 94 04/14/23 15:14 O2 Del Method Nasal Cannula 04/14/23 15:14 O2 Flow Rate 5 04/14/23 15:14 Weight last 48 hrs Weight 93.894 kg Physical Exam 2 Narrative: Patient is awake and alert. Able to provide history. Normocephalic. Oxygen tubing is in place. Extraocular movements intact. Mucous membranes are moist. Neck is supple. Cardiovascular exam shows a regular rhythm. Heart sounds are no notable gallops or rubs. Has mild jugular venous distention. Lungs are remarkable for some scattered inspiratory and expiratory wheezes and basilar Rales. No rhonchi. Wet sounding cough a couple of times during evaluation without sputum production. Abdomen is soft, nontender. Midline scar is noted and with changing in position there is a prominent bulge between the umbilicus and epigastric region that is reducible. Positive bowel sounds. 1+ pitting edema bilaterally. Stasis changes noted. Capillary refill at both great toes is brisk. Speech is clear, face symmetric, moves all extremities. No abnormal movements. Data 04/14/23 12:03 04/14/23 12:03 Other Labs: CXR FINDINGS: The chest is similar in appearance to most recent examination of 04/07/2023. However, in comparison to examinations of 04/04/2023 and 02/27/2020 the reticular interstitial densities in the mid and lower lung guamna are more prominent and may represent early congestive failure. The heart is enlarged. IMPRESSION: Possible early congestive failure. Laboratory Results WBC 11.18 10^3/uL (3.29-11.43) 04/14/23 12:03 RBC 4.21 10^6/uL (3.85-5.65) 04/14/23 12:03 Hgb 13.40 g/dL (11.27-16.99) 04/14/23 12:03 Hct 40.7 % (37-53) 04/14/23 12:03 MCV 96.7 fl (82-101) 04/14/23 12:03 MCH 31.8 pg (27-33) 04/14/23 12:03 MCHC 32.9 g/dL (30-55) 04/14/23 12:03 RDW 13.3 % (12.1-15.1) 04/14/23 12:03 Plt Count 199 10^3/cmm (157-399) 04/14/23 12:03 MPV 9.0 fL (7.4-10.4) 04/14/23 12:03 Neut % (Auto) 82.4 % 04/14/23 12:03 Lymph % (Auto) 12.1 % 04/14/23 12:03 [place] % (Auto) 4.9 % 04/14/23 12:03 Eos % (Auto) 0.1 % 04/14/23 12:03 Baso % (Auto) 0.2 % 04/14/23 12:03 Neut # (Auto) 9.22 10^3/uL (1.8-7.7) H 04/14/23 12:03 Lymph # (Auto) 1.4 10^3/uL (0.8-4.8) 04/14/23 12:03 [place]in # (Auto) 0.6 10^3/uL (0.2-0.9) 04/14/23 12:03 Eos # (Auto) 0.0 10^3/uL (0.0-0.8) 04/14/23 12:03 Baso # (Auto) 0.0 10^3/uL (0.0-0.1) 04/14/23 12:03 Nucleated RBC % (auto) 0 % 04/14/23 12:03 Nucleated RBCs # 0.0 /100WBC 04/14/23 12:03 Sodium 135 mmol/L (136-145) L 04/14/23 12:03 Potassium 4.5 mmol/L (3.5-5.1) 04/14/23 12:03 Chloride 99 mmol/L (98-107) 04/14/23 12:03 Carbon Dioxide 26 mmol/L (22-29) 04/14/23 12:03 Anion Gap 14.5 (5-19) 04/14/23 12:03 BUN 30 mg/dL (8-23) H 04/14/23 12:03 Creatinine 1.2 mg/dL (0.7-1.2) 04/14/23 12:03 GFR Calculation Not Reportable 04/14/23 12:03 Glucose 222 mg/dL (65-115) H 04/14/23 12:03 Calculated Osmolality 293 mOsm/kg (285-295) 04/14/23 12:03 Lactic Acid 1.4 mmol/L (0.5-2.2) 04/14/23 12:17 Calcium 9.7 mg/dL (8.5-10.5) 04/14/23 12:03 Total Bilirubin 0.9 mg/dL (0.15-1.2) 04/14/23 12:03 AST 23 U/L (0-40) 04/14/23 12:03 ALT 25 U/L (0-41) 04/14/23 12:03 Alkaline Phosphatase 77 U/L (40-130) 04/14/23 12:03 Troponin T Baseline 30 ng/L (0-15) H 04/14/23 12:03 Troponin T 120 Minute 31.39 ng/L (0-15) H 04/14/23 13:59 Delta Troponin T 1.39 ABS# (0-10) 04/14/23 13:59 Troponin T Hi Sens 6Hr 29.57 ng/L (0-15) H 04/14/23 18:09 Troponin T Hi Sens 6Hr Delta -0.43 ng/L (0-12) L 04/14/23 18:09 NT-Pro-B Natriuret Pep 2735 pg/mL (0-450) H 04/14/23 12:03 Total Protein 6.6 g/dL (6.6-8.7) 04/14/23 12:03 Albumin 2.8 g/dL (3.5-5.2) L 04/14/23 12:03 Globulin 3.8 g/dL (1.3-4.6) 04/14/23 12:03 Urine Color Yellow (Yellow) 04/14/23 13:55 Urine Appearance Clear (CLEAR) 04/14/23 13:55 Urine pH 5 (5-7) 04/14/23 13:55 Ur Specific [place] 1.010 (1.005-1.030) 04/14/23 13:55 Urine Protein Neg (Negative) 04/14/23 13:55 Urine Glucose (UA) Norm (Normal) 04/14/23 13:55 Urine Ketones 1+ (Negative) H 04/14/23 13:55 Urine Blood Neg (Negative) 04/14/23 13:55 Urine Nitrate Negative (Negative) 04/14/23 13:55 Urine Bilirubin Neg (Negative) 04/14/23 13:55 Urine Urobilinogen Norm mg/dL (Negative) 04/14/23 13:55 Ur Leukocyte Esterase Negative (Negative) 04/14/23 13:55 Coronavirus 229E (PCR) Not detected (NOT DETECT) 04/14/23 12:00 Influenza Type A Ag negative (Negative) 04/14/23 12:00 Influenza Type B Ag negative (Negative) 04/14/23 12:00 SARS-CoV-2 (PCR) Not detected (NOT DETECT) 04/14/23 12:00 A&P Assessment and plan (1) CHF (congestive heart failure): Acute on chronic CHF with preserved ejection fraction. He had previously been on diuretic therapy but it fell off of his list approximately 1 year ago. Since that time he has had increasing symptoms suggesting symptomatic CHF. Simultaneously he has had progression of chronic kidney disease likely another contributing factor. I am not sure that many of his providers realize that he was not taking Lasix anymore. As recently as last month cardiology recommended continuation of current regimen assuming that he was on diuretic therapy. Ejection fraction on last echocardiogram at 63% but that was several years ago. Qualifiers: Heart failure chronicity: chronic Heart failure type: diastolic Qualified Code(s): I50.32 - Chronic diastolic (congestive) heart failure (2) Chronic kidney disease: Chronic kidney disease stage IIIa, possibly 3B. I suspect baseline creatinine while on diuresis will be higher than recent values. Review of records from a couple of years ago shows creatinine 1.8-2.0. Has appointment set up with nephrology for June to establish care. (3) Atrial fibrillation: Chronic paroxysmal atrial fibrillation, on carvedilol and chronic anticoagulation with Eliquis though has been out of Eliquis for several days. Prescription has been sent from [facility]. Qualifiers: Atrial fibrillation type: paroxysmal Qualified Code(s): I48.0 - Paroxysmal atrial fibrillation (4) Hypertension: Chronically on carvedilol Qualifiers: Hypertension type: essential hypertension Qualified Code(s): I10 - Essential (primary) hypertension (5) Hyperlipidemia: Chronically on atorvastatin (6) CAD (coronary artery disease): History of two-vessel bypass along with mitral valve replacement and Maze procedure in 2008. Last cardiac stress testing was in 2020. No recent chest pain. Is on chronic aspirin in addition to other mention management. Qualifiers: Associated angina: with other forms of angina Coronary Disease- Associated Artery/Lesion type: bypass graft [place] vs. transplanted heart: n ative heart Qualified Code(s): I25.708 - Atherosclerosis of coronary artery bypass graft(s), unspecified, with other forms of angina pectoris (7) Implantable loop recorder present: Since June 2020. He had a recent significant pause post PVC of almost 5 seconds but was not symptomatic and is being monitored currently. (8) Diabetes mellitus: Diabetes mellitus type 2, insulin requiring, with peripheral neuropathy, also on semaglutide when it is available. (9) Benign prostatic hyperplasia with lower urinary tract symptoms: Chronically on tamsulosin and finasteride with continued lower urinary tract symptoms Qualifiers: Lower urinary tract symptom detail: urinary frequency Qualified Code(s): N40.1 - Benign prostatic hyperplasia with lower urinary tract symptoms; R35.0 - Frequency of micturition Plan Depression and anxiety on chronic duloxetine and buspirone Chronically on Namenda History of seizures Severe peripheral neuropathy Chronically on PPI Observation admission Monitor response to IV diuresis already administered Repeat echocardiogram as has not had one for several years Will give another dose of IV Lasix in the morning Repeat electrolytes in the morning to evaluate renal function Anticipate transition to resumption of oral Lasix on an outpatient basis likely 40 mg p.o. daily with potassium supplementation Has an appointment with nephrology already scheduled for June, need to see if we can try to move this up Is status post breathing treatment and Levaquin in the emergency room. At this point in time I am not continuing further antibiotics as my suspicion for an acute infectious process is lower currently. He completed a course of doxycycline 2 days ago and received steroids recently in the form of dexamethasone. Since he has shown significant improvement after diuresis we will hold on any additional steroids though will continue breathing treatments Check ABG Continue on oxygen weaning as able to previous home settings Patient encouraged to keep appointment for sleep study, impact of untreated hypoxemia and sleep apnea on cardiopulmonary systems was discussed with patient and his [id number] Patient was encouraged to resume cardiac rehab as a means of maintaining exertional functionality in addition to medical management Telemetry monitoring for any evidence of recurrent arrhythmias Will continue serial cardiac enzymes and EKGs Sliding scale insulin and long-acting insulin for diabetes currently Discussed current shortage of semaglutide with patient and his galbfdwn-[id number] Continue home medications of carvedilol, aspirin, atorvastatin and Eliquis A refill for Eliquis should be an in the next 24 to 48 hours Continue home BuSpar and duloxetine along with Namenda Continue Flomax and finasteride VTE prophylaxis: Eliquis GI Prophylaxis: PPI Antibiotics: none currently prescribed though did receive a dose of Levaquin in the emergency room Pending studies: Echocardiogram is pending as ordered continue serial cardiac enzymes Telemetry: Ordered to monitor for arrhythmias [place]: not currently indicated Line(s): peripheral IVs Disposition plan: Home with outpatient follow up to his primary care provider at the [facility]. May also benefit from sooner follow-up with cardiology, sooner initial appointment with nephrology. Anticipate resumption of oral Lasix plus potassium and need for follow-up labs within the next week or so given comorbid diagnoses. Patient is to keep appointment for sleep study and encouraged to resume cardiac rehab. Code Status: Full Code Supportive care otherwise Findings, concerns and plans were discussed with patient and they were given an opportunity to ask questions Attestations 2 Medical Necessity Statement*: Currently anticipate a stay less than two midnights in this patient who has had several ED visits over the last week or 2 with respiratory symptoms. Today appeared more consistent with acute CHF exacerbation and has shown improvement after receiving diuretic therapy. On review of history, has been determined that Lasix had not been refilled sometime ago though this was not clear among the different providers that he has been following with. He is already shown some improvement with initiation of diuresis. Diagnoses Chronic diastolic congestive heart failure I50.32 Heart failure chronicity: chronic Heart failure type: diastolic Chronic kidney disease N18.9 Paroxysmal atrial fibrillation I48.0 Atrial fibrillation type: paroxysmal Essential hypertension I10 Hypertension type: essential hypertension Hyperlipidemia E78.5 Coronary artery disease involving coronary bypass graft of [place] heart with other forms of angina pectoris I25.708 Associated angina: with other forms of angina Coronary Disease-Associated Artery/Lesion type: bypass graft [place] vs. transplanted heart: [place] heart Implantable loop recorder present Z95.818 Diabetes mellitus E11.9 Benign prostatic hyperplasia with urinary frequency N40.1; R35.0 Lower urinary tract symptom detail: urinary frequency
--- NOTE | 2023-04-14 17:47 | ECG_ITS ---
[facility] Test Date: 2023-04-14 Pat Name: Jose Armendariz Department: Room: 253 Gender: Male Payable Manager: : 1940 Requested By: Wilver Johnson Order Number: [id number] Rebeca MD: Alexi Orona M.D. Measurements Intervals [place] Rate: 112 P: 73 DE: 172 QRS: 85 QRSD: 127 T: -13 QT: 324 QTc: 443 Interpretive Statements SINUS TACHYCARDIA WITH OCCASIONAL VENTRICULAR PREMATURE COMPLEXES WITH FREQUENT SUPRAVENTRICULAR PREMATURE COMPLEXES RIGHT BUNDLE BRANCH BLOCK [120+ ms QRS DURATION, UPRIGHT V1, 40+ ms S IN I/aVL/V4/V5/V6] Compared to ECG 04/14/2023 13:44:34 Ventricular premature complex(es) now present Electronically Signed On 04-15-2023 7:19:26 LATEX SPOOLER by Alexi Orona M.D. [id number]
[2023-04-14] MEDS: finasteride 5 mg Tablet PO (18:19)
[2023-04-14] MEDS: pantoprazole DR 40 mg Tablet PO (18:19)
[2023-04-14] MEDS: tamsulosin 0.4 mg Capsule PO (18:19)
[2023-04-14] MEDS: magnesium oxide 400 mg tablet PO (18:19)
[2023-04-14] MEDS: duloxetine 20 mg Capsule PO (18:20)
[2023-04-14] MEDS: memantine 5 mg tablet PO (18:20)
[2023-04-14] MEDS: carvedilol 6.25 mg Tablet 12.5 MG PO (18:20)
[2023-04-14 18:41] LABS: Troponin 5 6HR 29.57 ng/L (0-15)
[2023-04-14 18:44] LABS: Troponin 5 6HR Delta -0.43 ng/L (0-12)
--- NOTE | 2023-04-14 19:28 | USCV_ITS ---
Jose Armendariz Age: 82 Gender: M : 1940 Exam Date: 04/14/2023 20:21 Ordering Phys: Cristina Morel MD Technologist: SANG Exam Location: [facility] [place]ication: severe shortness of breath. 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 History of COPD, CHF, AFIB. BP: 127 / 73 HR: 89 Rhythm: Atrial Fibrillation Technical Quality: Adequate MEASUREMENTS (Male / Female) Normal Values 2D ECHO LV Diastolic Diameter PLAX 4.6 cm 4.2 - 5.9 / 3.9 - 5.3 cm LV Systolic Diameter PLAX 3.8 cm IVS Diastolic Thickness 1.5 cm 0.6 - 1.0 / 0.6 - 0.9 cm IVS Systolic Thickness 1.7 cm LVPW Diastolic Thickness 1.0 cm 0.6 - 1.0 / 0.6 - 0.9 cm LVPW Systolic Thickness 1.0 cm LVOT Diameter 2.2 cm LV Ejection Fraction 2D Teich 39.3 % LV Ejection Fraction MOD 2C 63.3 % LV Ejection Fraction 2C AL 63.5 % LA Diameter 4.9 cm LA Width 5.3 cm LA Height 5.7 cm RA Width 3.4 cm RA Height 4.9 cm IVC Diameter 2.0 cm M-MODE Aortic Annulus Diameter 3.5 cm LA Ao Ratio MM 1.4 MV E Point Septal Separation 0.9 cm DOPPLER AV Peak Velocity 108.0 cm/s LVOT Peak Velocity 82.0 cm/s AV Area Cont Eq vti 3.1 cm squared AV Area Cont Eq pk 2.9 cm squared MV Peak Velocity 136.0 cm/s MV Area PHT 2.7 cm squared MV E' Velocity 79.0 cm/s Mitral E to MV E' Ratio 15.8 Mitral E to LV E' Lateral Ratio 17.1 Mitral E to LV E' Septal Ratio 14.9 TR Peak Velocity 391.3 cm/s TR Peak Gradient 61.3 mmHg Right Atrial Pressure 10.0 mmHg Pulmonary Artery Systolic Pressu 71.3 mmHg PV Peak Velocity 78.0 cm/s RV Acceleration Time 0.1 s RV Ejection Time 0.3 s RV AcT/ET 0.3 FINDINGS Left Ventricle The rhythm is atrial fibrillation. The rate is mildly elevated above 100 bpm. The ventricle is normal in size. There is lower limit of normal to mildly hypokinetic left ventricular function. Ejection fraction is about 50%. No wall motion disturbances. Diastolic function cannot be determined due to the rhythm. Right Ventricle Normal right ventricular size and systolic function. Severe pulmonary hypertension, RVSP 71.3 mmHg. Right Atrium The right atrium is normal in size. Left Atrium Mildly increased left atrial size. Mitral Valve The mitral valve was not well-seen. There may have been a mitral valve repair. Trace to mild mitral regurgitation Aortic Valve Structurally normal trileaflet aortic valve. No aortic valve stenosis. Mild aortic valve regurgitation. Tricuspid Valve Structurally normal tricuspid valve. Mild tricuspid valve regurgitation. Pulmonic Valve Pulmonic valve not well visualized. Pericardium Normal pericardium without effusion. Aorta Normal ascending aorta dimension. IVC The inferior vena cava appears normal. CONCLUSIONS The rhythm is atrial fibrillation. The rate is mildly elevated above 100 bpm. The ventricle is normal in size. There is lower limit of normal to mildly hypokinetic left ventricular function. Ejection fraction is about 50%. No wall motion disturbances. Diastolic function cannot be determined due to the rhythm. Normal right ventricular size and systolic function. Severe pulmonary hypertension, RVSP 71.3 mmHg. Mildly increased left atrial size. The mitral valve was not well-seen. There may have been a mitral valve repair. Trace to mild mitral regurgitation. Structurally normal trileaflet aortic valve. No aortic valve stenosis. Mild aortic valve regurgitation. Previous study was 04/01/2019. There has been essentially no change with the exception of the pulmonary pressures. The pulmonary artery pressure was reportedly normal in 2019. Dr. Ezequiel Molina MD (Electronically Signed) Final Date: 15 April 2023 08:20 S
[2023-04-14] MEDS: aspirin 81 mg EC Tablet PO (21:14)
[2023-04-14] MEDS: apixaban 5 mg Tablet 2.5 MG PO (21:14)
[2023-04-14] MEDS: BuSPIRONE 10 mg Tablet 5 MG PO (21:14)
[2023-04-14] MEDS: atorvastatin 40 mg Tablet 80 MG PO (21:14)
[2023-04-14 21:42] LABS: Glucose Point of Care 402 mg/dL (70-110)
[2023-04-14] MEDS: insulin glargine 100 units/1 mL 20 UNIT SUBCUT (21:52)
[2023-04-15] VITALS (14 sets, daily range): BP systolic 112–165; BP diastolic 63–78; PULSE 80–110; RESP 14–22; TEMP 36.4–37; O2SAT 90–95
[2023-04-15] MEDS: FUROsemide 10 mg/mL SDV 4mL 40 MG IVP (05:26)
[2023-04-15 05:51] LABS: Blood Urea Nitrogen 42 mg/dL (8-23); Calcium 8.9 mg/dL (8.5-10.5); Carbon Dioxide 28 mmol/L (22-29); Chloride 97 mmol/L (98-107); Glucose 262 mg/dL (65-115); Magnesium 1.9 mg/dL (1.7-2.3); Osmolality Calculated 300 mOsm/kg (285-295); Phosphorus 3.4 mg/dL (2.5-4.5); Sodium 135 mmol/L (136-145)
[2023-04-15] MEDS: potassium chloride ER 20 mEq Tablet PO (08:23)
[2023-04-15] MEDS: magnesium oxide 400 mg tablet PO ×2 (08:23→17:57)
[2023-04-15] MEDS: BuSPIRONE 10 mg Tablet 5 MG PO ×3 (08:23→20:32)
[2023-04-15] MEDS: pantoprazole DR 40 mg Tablet PO ×2 (08:23→17:57)
[2023-04-15] MEDS: duloxetine 20 mg Capsule PO ×2 (08:23→17:57)
[2023-04-15] MEDS: memantine 5 mg tablet PO ×2 (08:23→17:57)
[2023-04-15] MEDS: carvedilol 6.25 mg Tablet 12.5 MG PO ×2 (08:23→17:57)
[2023-04-15] MEDS: tamsulosin 0.4 mg Capsule PO ×2 (08:23→17:57)
[2023-04-15] MEDS: cholecalciferol (vitamin D3) 1,000 unit Tablet 2000 UNIT PO (08:24)
[2023-04-15] MEDS: apixaban 5 mg Tablet 2.5 MG PO ×2 (08:24→20:31)
[2023-04-15] MEDS: albuterol 2.5 mg/3 mL Neb INHALATION ×2 (09:14→13:35)
[2023-04-15] MEDS: calcium polycarbophil 625 mg Tablet 1250 MG PO (09:48)
--- NOTE | 2023-04-15 11:59 | XR_ITS ---
WS: [id number] XR hip RT 2-3V wo/w pel* [id number] REASON FOR EXAM: post fall FINDINGS: No fracture. Moderate narrowing of the joint space with mild to moderate subchondral sclerosis and osteophytosis o f the acetabulum. No soft tissue abnormality. IMPRESSION: No acute abnormality. Moderate osteoarthritis.
[2023-04-15 12:08] LABS: Glucose Point of Care 366 mg/dL (70-110)
--- NOTE | 2023-04-15 16:27 | P.PN_ITS ---
Subjective 2 Subjective: States that his breathing is slightly better compared to yesterday. Urine output of 105. Overall still not net negative. Medications: Reviewed: Yes Vitals/I&O/Wt Last Vital Signs Temp 98.0 F 04/15/23 12:00 Pulse 87 04/15/23 13:35 Resp 19 H 04/15/23 13:35 BP 115/67 04/15/23 12:00 Pulse Ox 94 04/15/23 13:35 O2 Del Method Nasal Cannula 04/15/23 13:35 O2 Flow Rate 4 04/15/23 13:35 04/15/23 04/15/23 04/15/23 06:59 14:59 22:59 Intake Total 240 / 630 600 / 600 Output Total 500 / 500 625 / 625 Balance -260 / 130 -25 / -25 Weight last 48 hrs Weight 91.626 kg Weight 92.351 kg Weight 93.894 kg Physical Exam 2 Narrative: General: No acute distress, AO x3 HEENT: PERRLA, pupils bilaterally equal and reactive, pallors not present Chest: Scattered wheezing to auscultation bilaterally CVS: S1-S2 regular, no murmurs, no tachycardia, no gallops, no rubs Abdomen: Soft, nontender, no organomegaly, bowel sounds present Neuro: No focal deficits, no facial deformity, AO x3, power 5/5 in all limbs Data 04/14/23 12:03 04/15/23 04:11 Micro: Microbiology 04/14/23 18:15 Gram Stain - Final Sputum - Expectorated Sputum Sputum Culture - Preliminary A&P Assessment and plan (1) CHF (congestive heart failure): Acute on chronic CHF with preserved ejection fraction. He had previously been on diuretic therapy but it fell off of his list approximately 1 year ago. Since that time he has had increasing symptoms suggesting symptomatic CHF. Simultaneously he has had progression of chronic kidney disease likely another contributing factor. I am not sure that many of his providers realize that he was not taking Lasix anymore. As recently as last month cardiology recommended continuation of current regimen assuming that he was on diuretic therapy. Ejection fraction on last echocardiogram at 63% but that was several years ago. Qualifiers: Heart failure type: diastolic Heart failure chronicity: chronic Qualified Code(s): I50.32 - Chronic diastolic (congestive) heart failure (2) Chronic kidney disease: Chronic kidney disease stage IIIa, possibly 3B. I suspect baseline creatinine while on diuresis will be higher than recent values. Review of records from a couple of years ago shows creatinine 1.8-2.0. Has appointment set up with nephrology for June to establish care. (3) Atrial fibrillation: Chronic paroxysmal atrial fibrillation, on carvedilol and chronic anticoagulation with Eliquis though has been out of Eliquis for several days. Prescription has been sent from [place] pharmacy. Qualifiers: Atrial fibrillation type: paroxysmal Qualified Code(s): I48.0 - Paroxysmal atrial fibrillation (4) Hypertension: Chronically on carvedilol Qualifiers: Hypertension type: essential hypertension Qualified Code(s): I10 - Essential (primary) hypertension (5) Hyperlipidemia: Chronically on atorvastatin (6) CAD (coronary artery disease): History of two-vessel bypass along with mitral valve replacement and Maze procedure in 2008. Last cardiac stress testing was in 2020. No recent chest pain. Is on chronic aspirin in addition to other mention management. Qualifiers: Coronary Disease-Associated Artery/Lesion type: bypass graft [place] vs. transplanted heart: [place] heart Associated angina: with other forms of angina Qualified Code(s): I25.708 - Atherosclerosis of coronary artery bypass graft(s), unspecified, with other forms of angina pectoris (7) Implantable loop recorder present: Since June 2020. He had a recent significant pause post PVC of almost 5 seconds but was not symptomatic and is being monitored currently. (8) Diabetes mellitus: Diabetes mellitus type 2, insulin requiring, with peripheral neuropathy, also on semaglutide when it is available. (9) Benign prostatic hyperplasia with lower urinary tract symptoms: Chronically on tamsulosin and finasteride with continued lower urinary tract symptoms Qualifiers: Lower urinary tract symptom detail: urinary frequency Qualified Code(s): N40.1 - Benign prostatic hyperplasia with lower urinary tract symptoms; R35.0 - Frequency of micturition Plan Depression and anxiety on chronic duloxetine and buspirone Chronically on Namenda History of seizures Severe peripheral neuropathy Chronically on PPI Observation admission Monitor response to IV diuresis already administered Repeat echocardiogram as has not had one for several years Will give another dose of IV Lasix in the morning Repeat electrolytes in the morning to evaluate renal function Anticipate transition to resumption of oral Lasix on an outpatient basis likely 40 mg p.o. daily with potassium supplementation Has an appointment with nephrology already scheduled for June, may need to see if we can try to move this up Is status post breathing treatment and Levaquin in the emergency room. At this point in time I am not continuing further antibiotics as my suspicion for an acute infectious process is lower currently. He completed a course of doxycycline 2 days ago and received steroids recently in the form of dexamethasone. Since he has shown significant improvement after diuresis we will hold on any additional steroids though will continue breathing treatments Check ABG Continue on oxygen weaning as able to previous home settings Patient encouraged to keep appointment for sleep study, impact of untreated hypoxemia and sleep apnea on cardiopulmonary systems was discussed with patient and his [id number] Patient was encouraged to resume cardiac rehab as a means of maintaining exertional functionality in addition to medical management Telemetry monitoring for any evidence of recurrent arrhythmias Will continue serial cardiac enzymes and EKGs Sliding scale insulin and long-acting insulin for diabetes currently Discussed current shortage of semaglutide with patient and his [id number] Continue home medications of carvedilol, aspirin, atorvastatin and Eliquis A refill for Eliquis should be an in the next 24 to 48 hours Continue home BuSpar and duloxetine along with Namenda Continue Flomax and finasteride VTE prophylaxis: Eliquis GI Prophylaxis: PPI Antibiotics: none currently prescribed though did receive a dose of Levaquin in the emergency room Pending studies: Echocardiogram is pending as ordered continue serial cardiac enzymes Telemetry: Ordered to monitor for arrhythmias Praker: not currently indicated Line(s): peripheral IVs Disposition plan: Home with outpatient follow up to his primary care provider at the [place] clinic. May also benefit from sooner follow-up with cardiology, sooner initial appointment with nephrology. Anticipate resumption of oral Lasix plus potassium and need for follow-up labs within the next week or so given comorbid diagnoses. Patient is to keep appointment for sleep study and encouraged to resume cardiac rehab. Code Status: Full Code Supportive care otherwise Findings, concerns and plans were discussed with patient and they were given an opportunity to ask questions Plan for today: 04/15 2023. Continue Lasix 40 mg IV daily. Creatinine was stable at 1.5. Urine output of 1.1 L. Not yet net negative. Noted to have wheezing on exam. Denies any past history of COPD but does have a known history of sleep apnea. States he has an upcoming appointment in June for a repeat sleep study. Feasibly could have additional component of bronchitis. Wheezing persisting in spite of albuterol. Will change to DuoNeb and budesonide emulation and monitor for response. Attestations 2 Medical Necessity Statement*: Continued need for IV diuresis Coding Level of Care Code Acute Code for Chg Fwd Moderate MDM includes number and complexity of problems actively addressed during encounter, amount and/or complexity of data reviewed/ordered and described risk of complication, morbidity or mortality of management as documented Diagnoses Chronic diastolic congestive heart failure I50.32 Heart failure type: diastolic Heart failure chronicity: chronic Chronic kidney disease N18.9 Paroxysmal atrial fibrillation I48.0 Atrial fibrillation type: paroxysmal Essential hypertension I10 Hypertension type: essential hypertension Hyperlipidemia E78.5 Coronary artery disease involving coronary bypass graft of [place] heart with other forms of angina pectoris I25.708 Coronary Disease-Associated Artery/Lesion type: bypass graft [place] vs. transplanted heart: [place] heart Associated angina: with other forms of angina Implantable loop recorder present Z95.818 Diabetes mellitus E11.9 Benign prostatic hyperplasia with urinary frequency N40.1; R35.0 Lower urinary tract symptom detail: urinary frequency
[2023-04-15 16:46] LABS: Glucose Point of Care 380 mg/dL (70-110)
[2023-04-15] MEDS: insulin lispro 100 unit/1 mL SUBCUT ×2 (17:56→20:31)
[2023-04-15] MEDS: finasteride 5 mg Tablet PO (17:57)
[2023-04-15 20:21] LABS: Glucose Point of Care 264 mg/dL (70-110)
[2023-04-15] MEDS: insulin glargine 100 units/1 mL 20 UNIT SUBCUT (20:31)
[2023-04-15] MEDS: aspirin 81 mg EC Tablet PO (20:32)
[2023-04-15] MEDS: atorvastatin 40 mg Tablet 80 MG PO (20:32)
[2023-04-15] MEDS: ipratropium-albuterol 3 mL Neb INHALATION (20:56)
[2023-04-15] MEDS: budesonide 0.5 mg/2 mL Neb INHALATION (20:56)
[2023-04-16] VITALS (13 sets, daily range): BP systolic 78–126; BP diastolic 46–77; PULSE 52–99; RESP 15–20; TEMP 36.4–36.8; O2SAT 90–96
[2023-04-16] MEDS: ipratropium-albuterol 3 mL Neb INHALATION ×4 (02:31→20:28)
[2023-04-16] MEDS: FUROsemide 10 mg/mL SDV 4mL 40 MG IVP (05:00)
[2023-04-16 05:06] LABS: Basophils % 0.1 %; Eosinophils % 0.4 %; Hematocrit 35.6 % (37-53); Lymphocytes # 1.5 10^3/uL (0.8-4.8); Lymphocytes % 13.6 %; Mean Corpuscular HGB Conc 35.7 g/dL (30-55); Mean Corpuscular Hemoglobin 33.9 pg (27-33); Mean Corpuscular Volume 94.9 fl (82-101); Mean Platelet Volume 8.6 fL (7.4-10.4); Monocytes # 0.5 10^3/uL (0.2-0.9); Monocytes % 4.2 %; Neutrophils # 9.06 10^3/uL (1.8-7.7); Neutrophils % 81.3 %; Nucleated Red Blood Cells % 0 %; Platelet Count 193 10^3/cmm (157-399); Red Blood Count 3.75 10^6/uL (3.85-5.65); Red Cell Distribution Width 13.2 % (12.1-15.1); White Blood Count 11.13 10^3/uL (3.29-11.43)
[2023-04-16 05:29] LABS: Alanine Aminotransferase 41 U/L (0-41); Albumin Level 2.7 g/dL (3.5-5.2); Alkaline Phosphatase 68 U/L (40-130); Anion Gap 11.2 (5-19); Aspartate Amino Transferase 33 U/L (0-40); Blood Urea Nitrogen 44 mg/dL (8-23); Calcium 8.8 mg/dL (8.5-10.5); Carbon Dioxide 33 mmol/L (22-29); Chloride 100 mmol/L (98-107); Globulin 3.2 g/dL (1.3-4.6); Glucose 109 mg/dL (65-115); Osmolality Calculated 302 mOsm/kg (285-295); Potassium 4.2 mmol/L (3.5-5.1); Sodium 140 mmol/L (136-145); Total Bilirubin 0.5 mg/dL (0.15-1.2); Total Protein 5.9 g/dL (6.6-8.7)
[2023-04-16 06:53] LABS: Glucose Point of Care 138 mg/dL (70-110)
[2023-04-16] MEDS: guaiFENesin-dextromethorphan UDC 10 mL PO ×2 (07:33→14:21)
[2023-04-16] MEDS: budesonide 0.5 mg/2 mL Neb INHALATION ×2 (07:54→20:28)
[2023-04-16] MEDS: duloxetine 20 mg Capsule PO ×2 (08:37→17:47)
[2023-04-16] MEDS: magnesium oxide 400 mg tablet PO ×2 (08:37→17:47)
[2023-04-16] MEDS: calcium polycarbophil 625 mg Tablet 1250 MG PO (08:37)
[2023-04-16] MEDS: cholecalciferol (vitamin D3) 1,000 unit Tablet 2000 UNIT PO (08:38)
[2023-04-16] MEDS: BuSPIRONE 10 mg Tablet 5 MG PO ×3 (08:38→22:12)
[2023-04-16] MEDS: tamsulosin 0.4 mg Capsule PO ×2 (08:38→17:47)
[2023-04-16] MEDS: potassium chloride ER 20 mEq Tablet PO (08:38)
[2023-04-16] MEDS: pantoprazole DR 40 mg Tablet PO ×2 (08:38→17:47)
[2023-04-16] MEDS: apixaban 5 mg Tablet 2.5 MG PO ×2 (08:38→22:12)
[2023-04-16] MEDS: carvedilol 6.25 mg Tablet 12.5 MG PO (08:38)
[2023-04-16] MEDS: memantine 5 mg tablet PO ×2 (08:38→17:47)
[2023-04-16 11:16] LABS: Glucose Point of Care 240 mg/dL (70-110)
[2023-04-16] MEDS: insulin lispro 100 unit/1 mL SUBCUT ×3 (13:28→22:13)
[2023-04-16] MEDS: midodrine 5 mg TABLET 10 MG PO ×2 (14:21→22:12)
--- NOTE | 2023-04-16 15:47 | PM.PN ---
Subjective Subjective: Patient sustained a fall yesterday where and he became orthostatic on attempting to walk in the room. Again this morning he is noted to be orthostatic. Blood pressure while lying down is 100/64, with standing it drops down to 78/46 mmHg. Patient is symptomatic and feels dizziness with changing positions. Medications: Reviewed: Yes Medication Review Details: Mr. Armendariz has been out of [facility] several weeks. He ran out of of [employer] as well but has had a prescription sent yesterday which should arrive in the next 24 to 48 hours. He has completed doxycycline. Vitals/I&O/Wt Last Vital Signs Temp 97.5 F L 04/16/23 11:21 Pulse 52 L 04/16/23 14:00 Resp 20 H 04/16/23 14:00 BP 100/64 04/16/23 11:21 Pulse Ox 91 04/16/23 14:00 O2 Del Method Nasal Cannula 04/16/23 14:00 O2 Flow Rate 4 04/16/23 14:00 04/16/23 04/16/23 04/16/23 06:59 14:59 22:59 Intake Total 240 / 1320 240 / 240 Output Total 800 / 1425 1150 / 1150 Balance -560 / -105 -910 / -910 Weight last 48 hrs Weight 91.626 kg Weight 91.626 kg Weight 92.351 kg Physical Exam Narrative: General: No acute distress, AO x3 HEENT: PERRLA, pupils bilaterally equal and reactive, pallors not present Chest: Normal vesicular breath sounds, no added sounds, equal good air entry bilaterally CVS: S1-S2 regular, no murmurs, no tachycardia, no gallops, no rubs Abdomen: Soft, nontender, no organomegaly, bowel sounds present Neuro: No focal deficits, no facial deformity, AO x3, power 5/5 in all limbs Data 04/16/23 04:03 04/16/23 04:03 Micro: Microbiology 04/14/23 18:15 Gram Stain - Final Sputum - Expectorated Sputum Sputum Culture - Preliminary A&P Assessment and plan (1) CHF (congestive heart failure): Acute on chronic CHF with preserved ejection fraction. He had previously been on diuretic therapy but it fell off of his list approximately 1 year ago. Since that time he has had increasing symptoms suggesting symptomatic CHF. Simultaneously he has had progression of chronic kidney disease likely another contributing factor. I am not sure that many of his providers realize that he was not taking Lasix anymore. As recently as last month cardiology recommended continuation of current regimen assuming that he was on diuretic therapy. Ejection fraction on last echocardiogram at 63% but that was several years ago. Qualifiers: Heart failure chronicity: chronic Heart failure type: diastolic Qualified Code(s): I50.32 - Chronic diastolic (congestive) heart failure (2) Chronic kidney disease: Chronic kidney disease stage IIIa, possibly 3B. I suspect baseline creatinine while on diuresis will be higher than recent values. Review of records from a couple of years ago shows creatinine 1.8-2.0. Has appointment set up with nephrology for June to establish care. (3) Atrial fibrillation: Chronic paroxysmal atrial fibrillation, on carvedilol and chronic anticoagulation with Eliquis though has been out of Eliquis for several days. Prescription has been sent from [place] pharmacy. Qualifiers: Atrial fibrillation type: paroxysmal Qualified Code(s): I48.0 - Paroxysmal atrial fibrillation (4) Hypertension: Chronically on carvedilol Qualifiers: Hypertension type: essential hypertension Qualified Code(s): I10 - Essential (primary) hypertension (5) Hyperlipidemia: Chronically on atorvastatin (6) CAD (coronary artery disease): History of two-vessel bypass along with mitral valve replacement and Maze procedure in 2008. Last cardiac stress testing was in 2020. No recent chest pain. Is on chronic aspirin in addition to other mention management. Qualifiers: Associated angina: with other forms of angina Coronary Disease-Associated Artery/Lesion type: bypass graft [place] vs. transplanted heart: [place] heart Qualified Code(s): I25.708 - Atherosclerosis of coronary artery bypass graft(s), unspecified, with other forms of angina pectoris (7) Implantable loop recorder present: Since June 2020. He had a recent significant pause post PVC of almost 5 seconds but was not symptomatic and is being monitored currently. (8) Diabetes mellitus: Diabetes mellitus type 2, insulin requiring, with peripheral neuropathy, also on semaglutide when it is available. (9) Benign prostatic hyperplasia with lower urinary tract symptoms: Chronically on tamsulosin and finasteride with continued lower urinary tract symptoms Qualifiers: Lower urinary tract symptom detail: urinary frequency Qualified Code(s): N40.1 - Benign prostatic hyperplasia with lower urinary tract symptoms; R35.0 - Frequency of micturition Plan Depression and anxiety on chronic duloxetine and buspirone Chronically on Namenda History of seizures Severe peripheral neuropathy Chronically on PPI Observation admission Monitor response to IV diuresis already administered Repeat echocardiogram as has not had one for several years Will give another dose of IV Lasix in the morning Repeat electrolytes in the morning to evaluate renal function Anticipate transition to resumption of oral Lasix on an outpatient basis likely 40 mg p.o. daily with potassium supplementation Has an appointment with nephrology already scheduled for June, may need to see if we can try to move this up Is status post breathing treatment and Levaquin in the emergency room. At this point in time I am not continuing further antibiotics as my suspicion for an acute infectious process is lower currently. He completed a course of doxycycline 2 days ago and received steroids recently in the form of dexamethasone. Since he has shown significant improvement after diuresis we will hold on any additional steroids though will continue breathing treatments Check ABG Continue on oxygen weaning as able to previous home settings Patient encouraged to keep appointment for sleep study, impact of untreated hypoxemia and sleep apnea on cardiopulmonary systems was discussed with patient and his [id number] Patient was encouraged to resume cardiac rehab as a means of maintaining exertional functionality in addition to medical management Telemetry monitoring for any evidence of recurrent arrhythmias Will continue serial cardiac enzymes and EKGs Sliding scale insulin and long-acting insulin for diabetes currently Discussed current shortage of semaglutide with patient and his [id number] Continue home medications of carvedilol, aspirin, atorvastatin and Eliquis A refill for Eliquis should be an in the next 24 to 48 hours Continue home BuSpar and duloxetine along with Namenda Continue Flomax and finasteride VTE prophylaxis: Eliquis GI Prophylaxis: PPI Antibiotics: none currently prescribed though did receive a dose of Levaquin in the emergency room Pending studies: Echocardiogram is pending as ordered continue serial cardiac enzymes Telemetry: Ordered to monitor for arrhythmias [place]: not currently indicated Line(s): peripheral IVs Disposition plan: Home with outpatient follow up to his primary care provider at the [place] [facility]. May also benefit from sooner follow-up with cardiology, sooner initial appointment with nephrology. Anticipate resumption of oral Lasix plus potassium and need for follow-up labs within the next week or so given comorbid diagnoses. Patient is to keep appointment for sleep study and encouraged to resume cardiac rehab. Code Status: Full Code Supportive care otherwise Findings, concerns and plans were discussed with patient and they were given an opportunity to ask questions Plan for today: 04/15 2023. Continue Lasix 40 mg IV daily. Creatinine was stable at 1.5. Urine output of 1.1 L. Not yet net negative. Noted to have wheezing on exam. Denies any past history of COPD but does have a known history of sleep apnea. States he has an upcoming appointment in June for a repeat sleep study. Feasibly could have additional component of bronchitis. Wheezing persisting in spite of albuterol. Will change to DuoNeb and budesonide emulation and monitor for response. Plan for today April 16, 2023. Patient noted to be significantly orthostatic yesterday and today. Will start midodrine 10 mg 3 times daily since we cannot give him IV fluids. Suspect that Lasix may have partially contributed. Patient is currently euvolemic today. Will change Lasix IV to oral starting tomorrow. Additionally reduce dose of carvedilol from 12.5 twice daily to 6.25 twice daily as his heart rate today is noted to be in the 50s. Oxygen saturation 91% on 4 L/min supplemental O2. Wheezing is nearly resolved today. Will additionally check CPK to assess for rhabdomyolysis as potentially contributing to his muscle weakness. Medications are reconciled-no other antihypertensives noted to be contributing. He is on Flomax 0.4 twice daily, if midodrine fails to resolve his symptoms would likely need to cut back on this medication as well. Apply compression stockings to help with orthostatics. Change to inpatient admission. Not safe to return home with current level of orthostasis and dizziness Attestations Medical Necessity Statement*: symptomatic orthostatic hypotension Coding Level of Care Code Acute Code for [facility] Fwd Diagnoses Chronic diastolic congestive heart failure I50.32 Heart failure chronicity: chronic Heart failure type: diastolic Chronic kidney disease N18.9 Paroxysmal atrial fibrillation I48.0 Atrial fibrillation type: paroxysmal Essential hypertension I10 Hypertension type: essential hypertension Hyperlipidemia E78.5 Coronary artery disease involving coronary bypass graft of [place] heart with other forms of angina pectoris I25.708 Associated angina: with other forms of angina Coronary Disease-Associated Artery/Lesion type: bypass graft [place] vs. transplanted heart: [place] heart Implantable loop recorder present Z95.818 Diabetes mellitus E11.9 Benign prostatic hyperplasia with urinary frequency N40.1; R35.0 Lower urinary tract symptom detail: urinary frequency
[2023-04-16 16:56] LABS: Glucose Point of Care 298 mg/dL (70-110)
[2023-04-16 17:00] LABS: Creatine Phosphokinase 61 U/L (39-308)
[2023-04-16] MEDS: carvedilol 6.25 mg Tablet PO (17:47)
[2023-04-16] MEDS: finasteride 5 mg Tablet PO (17:47)
[2023-04-16 21:45] LABS: Glucose Point of Care 262 mg/dL (70-110)
[2023-04-16] MEDS: insulin glargine 100 units/1 mL 20 UNIT SUBCUT (22:13)
[2023-04-16] MEDS: atorvastatin 40 mg Tablet 80 MG PO (22:13)
[2023-04-16] MEDS: aspirin 81 mg EC Tablet PO (22:13)
[2023-04-17] VITALS (11 sets, daily range): BP systolic 85–142; BP diastolic 47–78; PULSE 51–93; RESP 16–18; TEMP 36.5–36.8; O2SAT 92–96; BMI 29.4
[2023-04-17] MEDS: ipratropium-albuterol 3 mL Neb INHALATION ×3 (02:56→13:56)
[2023-04-17 04:38] LABS: Basophils % 0.1 %; Eosinophils # 0.2 10^3/uL (0.0-0.8); Eosinophils % 1.6 %; Hematocrit 37.7 % (37-53); Lymphocytes # 1.4 10^3/uL (0.8-4.8); Lymphocytes % 14.6 %; Mean Corpuscular HGB Conc 33.4 g/dL (30-55); Mean Corpuscular Hemoglobin 30.9 pg (27-33); Mean Corpuscular Volume 92.4 fl (82-101); Mean Platelet Volume 8.5 fL (7.4-10.4); Monocytes # 0.5 10^3/uL (0.2-0.9); Monocytes % 5.6 %; Neutrophils # 7.52 10^3/uL (1.8-7.7); Neutrophils % 77.6 %; Nucleated Red Blood Cells % 0 %; Platelet Count 187 10^3/cmm (157-399); Red Blood Count 4.08 10^6/uL (3.85-5.65); Red Cell Distribution Width 13.2 % (12.1-15.1)
[2023-04-17 05:00] LABS: Alanine Aminotransferase 36 U/L (0-41); Albumin Level 2.7 g/dL (3.5-5.2); Alkaline Phosphatase 69 U/L (40-130); Anion Gap 11.1 (5-19); Aspartate Amino Transferase 22 U/L (0-40); Blood Urea Nitrogen 44 mg/dL (8-23); Calcium 8.8 mg/dL (8.5-10.5); Carbon Dioxide 32 mmol/L (22-29); Chloride 100 mmol/L (98-107); Globulin 3.3 g/dL (1.3-4.6); Glucose 73 mg/dL (65-115); Osmolality Calculated 298 mOsm/kg (285-295); Potassium 4.1 mmol/L (3.5-5.1); Sodium 139 mmol/L (136-145); Total Bilirubin 0.5 mg/dL (0.15-1.2)
[2023-04-17 07:27] LABS: Glucose Point of Care 108 mg/dL (70-110)
[2023-04-17] MEDS: magnesium oxide 400 mg tablet PO ×2 (08:28→18:00)
[2023-04-17] MEDS: duloxetine 20 mg Capsule PO ×2 (08:28→18:01)
[2023-04-17] MEDS: calcium polycarbophil 625 mg Tablet 1250 MG PO (08:28)
[2023-04-17] MEDS: midodrine 5 mg TABLET 10 MG PO ×2 (08:29→14:40)
[2023-04-17] MEDS: carvedilol 6.25 mg Tablet PO ×2 (08:29→18:01)
[2023-04-17] MEDS: pantoprazole DR 40 mg Tablet PO ×2 (08:29→18:00)
[2023-04-17] MEDS: apixaban 5 mg Tablet 2.5 MG PO (08:29)
[2023-04-17] MEDS: cholecalciferol (vitamin D3) 1,000 unit Tablet 2000 UNIT PO (08:29)
[2023-04-17] MEDS: BuSPIRONE 10 mg Tablet 5 MG PO ×2 (08:29→14:40)
[2023-04-17] MEDS: memantine 5 mg tablet PO ×2 (08:29→18:00)
[2023-04-17] MEDS: potassium chloride ER 20 mEq Tablet PO (08:29)
[2023-04-17] MEDS: FUROsemide 40 mg Tablet PO (08:30)
[2023-04-17] MEDS: tamsulosin 0.4 mg Capsule PO ×2 (08:30→18:00)
[2023-04-17] MEDS: budesonide 0.5 mg/2 mL Neb INHALATION (08:39)
--- NOTE | 2023-04-17 09:02 | PC.CHAP ---
Pastoral Care Encounter/Spiritual Assessment Type of Contact [] Declined training professional visit [] Patient/Family/Request visit [] Outpatient visit [] Follow-up visit [] Physician referral [] Code/Alert [] Routine visit [] Staff referral [] Actively dying [] Patient sleeping [] Family support [] [] Out of room [] Palliative care [] [x] Receiving care in room [] Pre-surgical visit [] Trauma [] Long length of stay [] ICU visit [] Other: Relational/Emotional Strength [] Patient feels connected with others/family/visitors/staff [] Distress [] Loneliness/isolation [] Abandonment Spirituality of Patient [] Person of [place] [] Attends Religion of their [place] [] Believes in Prayer [] Reads Bible or Christian materials [] There are Spiritual issues to be addressed Art Objects Salesperson Interventions [] Prayer [] Active listening [] Non-anxious presence [] Spiritual/emotional support [] Crisis/trauma care [] Spiritual counseling [] Bereavement support [] Provided bereavement packet [] Provided Bible/devotional materials [] Provided toy/stuffed animal, coloring book to patient or family member [] Provided Communion [] Anointing/[place] [] Salvation [] Completed spiritual assessment [] Other: Impact on Illness or Injury [] Angry [] Fearful [] Anxious [] Often cries [] Exhaustion [] Unable to work [] Unable to attend hindu [] Unable to walk/stand [] Unable to read [] Unable to drive [] Unable to eat/drink [] Unable to sleep [] Unable to be with family [] Patient intubated [] Other: Summary Time spent with patient
--- NOTE | 2023-04-17 09:23 | PC.SOCIAL ---
IMM Update pg 2 of IMM updated w/ patient signed and witnessed. Copy dated and initialed and placed in chart.
--- NOTE | 2023-04-17 09:26 | PM.DCS ---
Discharge Providers Date of Admission: 04/16/23 15:57 Date of Discharge: April 17, 2023 Attending Provider at Admission: Cristina Morel MD Attending Provider at Discharge: Kylie Desir MD Primary Care Provider: Sam Fay DO Diagnoses at Discharge Discharge Diagnosis (1) CHF (congestive heart failure): Status: Chronic Qualifiers: Heart failure type: diastolic Heart failure chronicity: chronic Qualified Code(s): I50.32 - Chronic diastolic (congestive) heart failure (2) Chronic kidney disease: Status: Chronic (3) Atrial fibrillation: Status: Chronic Qualifiers: Atrial fibrillation type: paroxysmal Qualified Code(s): I48.0 - Paroxysmal atrial fibrillation (4) Hypertension: Status: Chronic Qualifiers: Hypertension type: essential hypertension Qualified Code(s): I10 - Essential (primary) hypertension (5) Hyperlipidemia: Status: Chronic (6) CAD (coronary artery disease): Status: Chronic Qualifiers: Coronary Disease-Associated Artery/Lesion type: bypass graft [place] vs. transplanted heart: [place] heart Associated angina: with other forms of angina Qualified Code(s): I25.708 - Atherosclerosis of coronary artery bypass graft(s), unspecified, with other forms of angina pectoris Permanent problem details: This patient had a coronary bypass surgery in 2008 along with a mitral valve repair and a maze procedure, at the [facility] in [place]. (7) Implantable loop recorder present: Status: Chronic (8) Diabetes mellitus: Status: Chronic (9) Benign prostatic hyperplasia with lower urinary tract symptoms: Status: Chronic Qualifiers: Lower urinary tract symptom detail: urinary frequency Qualified Code(s): N40.1 - Benign prostatic hyperplasia with lower urinary tract symptoms; R35.0 - Frequency of micturition Reason for Visit Reason for Visit: SOB Brief History: Taken from H&P: Jose Armendariz is a 82 year old male who presented to the emergency room with chief complaint of difficulty breathing. He has had several ER visits over the last week with similar symptoms. He has a history of coronary artery disease with two-vessel CABG, mitral valve replacement and Maze procedure, atrial fibrillation and chronic CHF with preserved ejection fraction for which he is on chronic oxygen at 4 to 5 L by nasal cannula. He also has known chronic kidney disease stage III. He follows at the [place] with Dr. Pattersno. He has a marine photographer, Dr. Erasmo here, and follows with endocrinology elsewhere. He had previously seen a urologist for prostatic hypertrophy. The urologist had prescribed Lasix for him sometime ago in addition to the tamsulosin and finasteride. More than a year ago, when he quit going to see the urologist regularly, his prescription for Lasix ran out and it was not prescribed by any of his other providers. Reviewing various records indicate several specialties thought he was still on diuretic therapy when in fact he has not been. He describes significant nocturia every 2-4 hours a night. He sleeps in a hospital bed to avoid sleeping in a fully supine position. He intermittently will have ankle edema. No recent episodes of chest pain. Lately upon arising his [id number] has noticed that he is confused sometimes in the morning. He has been referred for a sleep study but that is not scheduled until May. He had been diagnosed with sleep apnea in the past but underwent tonsillectomy and adenoidectomy as well as some type of sinus surgery and his sleep apnea was resolved on a follow-up study. Nevertheless there is been some suspicion that he may have sleep apnea again. Today when he got up he was lightheaded and more spacey than usual. In addition he was wheezing quite a bit. He has recently been diagnosed with bronchitis for which he was treated with Doxycycline and steroids , which made his Blood sugars trend up. Hospital Course Hospital Course During hospital stay he was found to have evidence of acute on chronic systolic CHF exacerbation. Echocardiogram was performed which showed normal to mildly hypokinetic left ventricular function. Ejection fraction is about 50%. No wall motion disturbances. He was noted to have severe pulmonary HTN with PASP of 70mmhg. He has been referred to pulmonology at discharge. He was treated with iv lasix, which has been transitioned to po at time of discharge. Carvedilol was dose adjusted to 6.25mg BID from 12.5 mg BID due to bradycardia. Additionally he suffered a witnessed fall in the hospital due to orthostatsic hypotension. No injuries were sustained. Orthoststic drops were down to 78 mmhg, he was started on midodrine for the same. With initiation of midodrine his orthostatic BP has improved to a lower limit of 90 mmhg, however his symptoms ar emuch improved. Dizziness is resolved at discharge. Suspect that he may have underlying COPD as noted to have wheezing on exam and pulm HTN on echo. Added Advair inhaler for the same. Physical Exam Narrative: General: No acute distress, AO x3 HEENT: PERRLA, pupils bilaterally equal and reactive, pallors not present Chest: Normal vesicular breath sounds, no added sounds, equal good air entry bilaterally CVS: S1-S2 regular, no murmurs, no tachycardia, no gallops, no rubs Abdomen: Soft, nontender, no organomegaly, bowel sounds present Neuro: No focal deficits, no facial deformity, AO x3, power 5/5 in all limbs Discharge Data Studies Completed and Pending Completed Studies During Hospitalization Category Date Time Status XR chest 1V portable [id number] Stat Exams 04/14/23 11:46 Completed XR hip RT 2-3V wo/w pel* [id number] Routine Exams 04/15/23 11:59 Completed CV. echo complete* [id number] Routine Ultrasound 04/14/23 19:28 Completed Laboratory Results WBC 9.70 10^3/uL (3.29-11.43) 04/17/23 04:15 RBC 4.08 10^6/uL (3.85-5.65) 04/17/23 04:15 Hgb 12.60 g/dL (11.27-16.99) 04/17/23 04:15 Hct 37.7 % (37-53) 04/17/23 04:15 MCV 92.4 fl (82-101) 04/17/23 04:15 MCH 30.9 pg (27-33) 04/17/23 04:15 MCHC 33.4 g/dL (30-55) D 04/17/23 04:15 RDW 13.2 % (12.1-15.1) 04/17/23 04:15 Plt Count 187 10^3/cmm (157-399) 04/17/23 04:15 MPV 8.5 fL (7.4-10.4) 04/17/23 04:15 Neut % (Auto) 77.6 % 04/17/23 04:15 Lymph % (Auto) 14.6 % 04/17/23 04:15 [place] % (Auto) 5.6 % 04/17/23 04:15 Eos % (Auto) 1.6 % 04/17/23 04:15 Baso % (Auto) 0.1 % 04/17/23 04:15 Neut # (Auto) 7.52 10^3/uL (1.8-7.7) 04/17/23 04:15 Lymph # (Auto) 1.4 10^3/uL (0.8-4.8) 04/17/23 04:15 [place] # (Auto) 0.5 10^3/uL (0.2-0.9) 04/17/23 04:15 Eos # (Auto) 0.2 10^3/uL (0.0-0.8) 04/17/23 04:15 Baso # (Auto) 0.0 10^3/uL (0.0-0.1) 04/17/23 04:15 Nucleated RBC % (auto) 0 % 04/17/23 04:15 Nucleated RBCs # 0.0 /100WBC 04/17/23 04:15 Sodium 139 mmol/L (136-145) 04/17/23 04:15 Potassium 4.1 mmol/L (3.5-5.1) 04/17/23 04:15 Chloride 100 mmol/L (98-107) 04/17/23 04:15 Carbon Dioxide 32 mmol/L (22-29) H 04/17/23 04:15 Anion Gap 11.1 (5-19) 04/17/23 04:15 BUN 44 mg/dL (8-23) H 04/17/23 04:15 Creatinine 1.5 mg/dL (0.7-1.2) H 04/17/23 04:15 GFR Calculation Not Reportable 04/17/23 04:15 Glucose 73 mg/dL (65-115) 04/17/23 04:15 POC Glucose 270 mg/dL (70-110) H 04/17/23 17:51 Calculated Osmolality 298 mOsm/kg (285-295) H 04/17/23 04:15 Lactic Acid 1.4 mmol/L (0.5-2.2) 04/14/23 12:17 Calcium 8.8 mg/dL (8.5-10.5) 04/17/23 04:15 Phosphorus 3.4 mg/dL (2.5-4.5) 04/15/23 04:11 Magnesium 1.9 mg/dL (1.7-2.3) 04/15/23 04:11 Total Bilirubin 0.5 mg/dL (0.15-1.2) 04/17/23 04:15 AST 22 U/L (0-40) 04/17/23 04:15 ALT 36 U/L (0-41) 04/17/23 04:15 Alkaline Phosphatase 69 U/L (40-130) 04/17/23 04:15 Creatine Kinase 61 U/L (39-308) 04/16/23 04:03 Troponin T Baseline 30 ng/L (0-15) H 04/14/23 12:03 Troponin T 120 Minute 31.39 ng/L (0-15) H 04/14/23 13:59 Delta Troponin T 1.39 ABS# (0-10) 04/14/23 13:59 Troponin T Hi Sens 6Hr 29.57 ng/L (0-15) H 04/14/23 18:09 Troponin T Hi Sens 6Hr Delta -0.43 ng/L (0-12) L 04/14/23 18:09 NT-Pro-B Natriuret Pep 2735 pg/mL (0-450) H 04/14/23 12:03 Total Protein 6.0 g/dL (6.6-8.7) L 04/17/23 04:15 Albumin 2.7 g/dL (3.5-5.2) L 04/17/23 04:15 Globulin 3.3 g/dL (1.3-4.6) 04/17/23 04:15 Urine Color Yellow (Yellow) 04/14/23 13:55 Urine Appearance Clear (CLEAR) 04/14/23 13:55 Urine pH 5 (5-7) 04/14/23 13:55 Ur Specific Elsie 1.010 (1.005-1.030) 04/14/23 13:55 Urine Protein Neg (Negative) 04/14/23 13:55 Urine Glucose (UA) Norm (Normal) 04/14/23 13:55 Urine Ketones 1+ (Negative) H 04/14/23 13:55 Urine Blood Neg (Negative) 04/14/23 13:55 Urine Nitrate Negative (Negative) 04/14/23 13:55 Urine Bilirubin Neg (Negative) 04/14/23 13:55 Urine Urobilinogen Norm mg/dL (Negative) 04/14/23 13:55 Ur Leukocyte Esterase Negative (Negative) 04/14/23 13:55 Coronavirus 229E (PCR) Not detected (NOT DETECT) 04/14/23 12:00 Influenza Type A Ag negative (Negative) 04/14/23 12:00 Influenza Type B Ag negative (Negative) 04/14/23 12:00 SARS-CoV-2 (PCR) Not detected (NOT DETECT) 04/14/23 12:00 Vitals Last Vital Signs Temp 97.8 F 04/17/23 19:13 Pulse 93 04/17/23 19:13 Resp 16 04/17/23 19:13 BP 129/63 04/17/23 19:13 Pulse Ox 93 04/17/23 19:13 O2 Del Method Nasal Cannula 04/17/23 16:00 O2 Flow Rate 4 04/17/23 13:56 Discharge Plan Discharge Patient Disposition: Home Health Service Condition: Stable Prescriptions: New furosemide 40 mg Tablet 40 mg PO DAILY@0800 30 Days Qty: 30 0RF dextromethorphan-guaifenesin 10-100 mg/5 mL Syrup 10 ml PO Q4H PRN (Reason: Cough) Qty: 0 0RF midodrine 5 mg Tablet 10 mg PO TID 30 Days Qty: 180 0RF Klor-Con M20 20 mEq Tablet,Er Particles/Crystals 20 meq PO DAILY 30 Days Qty: 30 0RF Advair Diskus 500-50 mcg/dose blister with device 1 inh inhalation BID 60 Days Qty: 60 0RF Continued tamsulosin 0.4 mg capsule 0.4 mg PO BID Qty: 180 3RF memantine 5 mg tablet 5 mg PO BID duloxetine 20 mg capsule,delayed release(DR/EC) 20 mg PO BID Ozempic 0.25 mg or 0.5 mg (2 mg/3 mL) pen injector 0.5 mg SUBCUT Q7D Rx Instructions: on thu Eliquis 2.5 mg tablet 2.5 mg PO BID Qty: 180 1RF atorvastatin 80 mg Tablet 80 mg PO BEDTIME magnesium oxide [MagOx] 400 mg (241.3 mg magnesium) Tablet 400 mg PO BID calcium polycarbophil 625 mg Tablet 1,250 mg PO DAILY omeprazole 20 mg Tablet,Delayed Release (Dr/Ec) 20 mg PO BID cholecalciferol (vitamin D3) [Vitamin D3] 50 mcg (2,000 unit) tablet 2,000 unit PO QPM insulin aspart U-100 [Novolog FlexPen U-100 Insulin] 100 unit/mL (3 mL) insulin pen See Rx Instructions SUBCUT TID Rx Instructions: SLIDING SCALE SUBCUT THREE TIMES A DAY aspirin 81 mg Tablet,Delayed Release (Dr/Ec) 81 mg PO BEDTIME finasteride 5 mg Tablet 5 mg PO QPM buspirone 10 mg Tablet 5 mg PO TID vitamin B complex Tablet 2 tab PO QAM Vitamin B-6 100 mg Tablet 100 mg PO QAM doxycycline hyclate 100 mg tablet 100 mg PO BID Rx Instructions: for 7 days (rx filled 04/05/23) docosahexaenoic acid-epa Capsule 1 cap PO BID Extra Strength Cranberry 15,000 mg PO DAILY Lantus U-100 Insulin 100 unit/mL Solution See Rx Instructions .ROUTE .COMPLEX Rx Instructions: sliding scale subcutaneously bid (normally uses 30 units bedtime and no daytime) albuterol sulfate 90 mcg/actuation HFA aerosol inhaler 2 inh INHALATION Q4H PRN (Reason: shortness of breath or wheezing) Qty: 6.7 1RF Changed carvedilol 6.25 mg tablet 6.25 mg PO BID 30 Days Qty: 30 0RF Discharge Orders: Discharge Order (Routine); Ordered 04/17/23 Ordered By: Kylie Desir Referrals: [facility] [Outside] Datar,Dwight German MD [Physician] - 1 month (Severe pulmonary hypertension, RVSP 71.3 mmHg. Sleep apnea. ) Sam Fay DO [Primary Care Provider] - 1 week (Please call Thursday to schedule you appointment. ) Discharge Diet: Usual diet Discharge Activity: Increase activity as tolerated Patient Instructions: Furosemide (By mouth), Potassium Supplement (By mouth), Midodrine (By mouth), Fluticasone/Salmeterol (By breathing) (Advair Diskus 100/50, Advair..., Dextromethorphan/Guaifenesin/Phenylephrine (By mouth), COPD (Chronic Obstructive Pulmonary Disease) (DC), COPD Stoplight, Opioid Safety Discharge Attestations Time Spent in Discharge Care*: greater than 30 min Quality Metrics Clinical Quality Measures [ No reported AMI, CVA or VTE this stay] Coding Level of Care Code Acute Code for Chg Fwd Diagnoses Chronic diastolic congestive heart failure I50.32 Heart failure type: diastolic Heart failure chronicity: chronic Chronic kidney disease N18.9 Paroxysmal atrial fibrillation I48.0 Atrial fibrillation type: paroxysmal Essential hypertension I10 Hypertension type: essential hypertension Hyperlipidemia E78.5 Coronary artery disease involving coronary bypass graft of [place] heart with other forms of angina pectoris I25.708 Coronary Disease-Associated Artery/Lesion type: bypass graft [place] vs. transplanted heart: [place] heart Associated angina: with other forms of angina Implantable loop recorder present Z95.818 Diabetes mellitus E11.9 Benign prostatic hyperplasia with urinary frequency N40.1; R35.0 Lower urinary tract symptom detail: urinary frequency
[2023-04-17 11:30] LABS: Glucose Point of Care 237 mg/dL (70-110)
[2023-04-17] MEDS: insulin lispro 100 unit/1 mL SUBCUT ×2 (11:56→18:00)
[2023-04-17 17:54] LABS: Glucose Point of Care 270 mg/dL (70-110)
[2023-04-17] MEDS: finasteride 5 mg Tablet PO (18:00)
== END 2023-04-17 19:15 | disposition home health service (06) | DRG 291 ==
LOC: ER 14:00 → MEDSURG 16:53
PROVIDERS: Admitting Provider Hospitalist; Emergency Provider Family Medicine; PCP Emergency Medicine Emergency Medical Services; Visit Provider Student in an Organized Health Care Education/Training Program
DX: I13.0 Hypertensive heart and chronic kidney disease with heart failure and stage 1 through stage 4 chronic kidney disease, or unspecified chronic kidney disease (principal); I50.33 Acute on chronic diastolic (congestive) heart failure; N18.32 Chronic kidney disease, stage 3b; E11.22 Type 2 diabetes mellitus with diabetic chronic kidney disease; Z79.4 Long term (current) use of insulin; J44.9 Chronic obstructive pulmonary disease, unspecified; N40.3 Nodular prostate with lower urinary tract symptoms; R35.0 Frequency of micturition; R35.1 Nocturia; I25.118 Atherosclerotic heart disease of native coronary artery with other forms of angina pectoris; Z87.891 Personal history of nicotine dependence; Z95.3 Presence of xenogenic heart valve; I48.0 Paroxysmal atrial fibrillation; Z79.01 Long term (current) use of anticoagulants; Z99.81 Dependence on supplemental oxygen; F32.A Depression, unspecified; E78.5 Hyperlipidemia, unspecified; E11.42 Type 2 diabetes mellitus with diabetic polyneuropathy; F41.9 Anxiety disorder, unspecified; Z95.818 Presence of other cardiac implants and grafts; I27.20 Pulmonary hypertension, unspecified; I95.1 Orthostatic hypotension; Z95.1 Presence of aortocoronary bypass graft
CPT/HCPCS: 36415; 36416; 71045; 73502; 80048; 80053; 81003; 82550; 82962; 83605; 83735; 83880; 84100; 84484; 85025; 87070; 87205; 87635; 87804; 93005; 93306; 94640; 96372; G0378; J1815; J1940; J1956; J7613; J7626; Q3014

== ENCOUNTER → 2023-05-01 15:50 | Outpatient (BNVA) | payer OTHER, SELFPAY | PROVIDERS: PCP Emergency Medicine Emergency Medical Services; Visit Provider Internal Medicine Cardiovascular Disease | DX: Z45.9 Encounter for adjustment and management of unspecified implanted device (principal) | CPT/HCPCS: 93298 ==

== ENCOUNTER → 2023-05-29 10:58 | Outpatient (BNVA) | payer OTHER, SELFPAY | PROVIDERS: PCP Emergency Medicine Emergency Medical Services; Visit Provider Podiatrist Foot & Ankle Surgery | DX: L60.3 Nail dystrophy (principal); N18.9 Chronic kidney disease, unspecified; G62.9 Polyneuropathy, unspecified; E11.29 Type 2 diabetes mellitus with other diabetic kidney complication; E11.42 Type 2 diabetes mellitus with diabetic polyneuropathy; Z79.4 Long term (current) use of insulin | CPT/HCPCS: 11721; 99203 ==

== ENCOUNTER 2023-06-16 12:49 | Outpatient (CLI) | payer OTHER, SELFPAY ==
[2023-06-16 13:19] LABS: Basophils # 0.1 10^3/uL (0.0-0.1); Basophils % 0.7 %; Eosinophils # 0.1 10^3/uL (0.0-0.8); Eosinophils % 1.5 %; Hematocrit 37.8 % (37-53); Lymphocytes # 1.6 10^3/uL (0.8-4.8); Lymphocytes % 21.1 %; Mean Corpuscular HGB Conc 33.9 g/dL (30-55); Mean Corpuscular Hemoglobin 31.6 pg (27-33); Mean Corpuscular Volume 93.3 fl (82-101); Mean Platelet Volume 8.9 fL (7.4-10.4); Monocytes # 0.5 10^3/uL (0.2-0.9); Monocytes % 6.1 %; Neutrophils # 5.28 10^3/uL (1.8-7.7); Neutrophils % 70.3 %; Nucleated Red Blood Cells % 0 %; Platelet Count 151 10^3/cmm (157-399); Red Blood Count 4.05 10^6/uL (3.85-5.65); Red Cell Distribution Width 14.6 % (12.1-15.1)
[2023-06-16 13:37] LABS: Albumin Level 3.6 g/dL (3.5-5.2); Blood Urea Nitrogen 26 mg/dL (8-23); Calcium 9.1 mg/dL (8.5-10.5); Carbon Dioxide 26 mmol/L (22-29); Chloride 104 mmol/L (98-107); Glucose 144 mg/dL (65-115); Phosphorus 3.4 mg/dL (2.5-4.5); Sodium 138 mmol/L (136-145)
[2023-06-16 13:41] LABS: Urine Creatinine 119 mg/dL (39-259); Urine Protein Random 15 mg/dL
[2023-06-16 13:43] LABS: Calcium 9.2 mg/dL (8.5-10.5)
[2023-06-16 13:50] LABS: Parathyroid Hormone 66.8 pg/mL (15-65)
== END 2023-06-16 12:50 | disposition home or self-care (01) ==
LOC: LAB 12:50
PROVIDERS: PCP Emergency Medicine Emergency Medical Services; Visit Provider Nurse Practitioner
DX: N18.32 Chronic kidney disease, stage 3b (principal)
CPT/HCPCS: 36415; 80069; 82310; 82570; 83970; 84156; 85025

== ENCOUNTER 2023-06-16 20:00 | Outpatient (CLI) | payer OTHER, SELFPAY | END 2023-06-16 20:01 | disposition home or self-care (01) | LOC: SLEEP 06-17 05:45 | PROVIDERS: PCP Emergency Medicine Emergency Medical Services; Visit Provider Emergency Medicine Emergency Medical Services | DX: G47.33 Obstructive sleep apnea (adult) (pediatric) (principal) | CPT/HCPCS: 95810 ==

== ENCOUNTER 2023-07-09 05:43 | Emergency (ER) | payer OTHER, SELFPAY ==
[2023-07-09 05:50] VITALS: BP 92/51; PULSE 87; RESP 16; TEMP 36.8; O2SAT 93
--- NOTE | 2023-07-09 06:04 | XRR_ITS ---
PROCEDURE INFORMATION: Exam: XR Right Shoulder Exam date and time: 07/09/2023 6:58 AM Age: 82 years old Clinical indication: Pain; Shoulder; Right TECHNIQUE: Imaging protocol: Radiologic exam of the right shoulder. Views: 2 or more views. Total images: 1 COMPARISON: CR XR chest 1V portable [id number] 07/09/2023 6:56 AM FINDINGS: Bones/joints: Mild AC joint degenerative changes. No acute fracture nor subluxation. No osseous erosion nor periosteal reaction. Heart/Mediastinum: Prior coronary artery bypass grafting. Soft tissues: Normal. XR/XR shoulder RT min 2V* [id number] IMPRESSION: No acute osseous pathology.
--- NOTE | 2023-07-09 06:05 | ECG_ITS ---
[facility] Test Date: 2023-07-09 Pat Name: Jose Armendariz Department: Room: Gender: Male [employer] Tender: : 1940 Requested By: Wilver Johnson Order Number: [id number] Rebeca MD: Pippa Zimmerman M.D. Measurements Intervals [place] Rate: 75 P: 86 HI: 219 QRS: 61 QRSD: 149 T: -34 QT: 386 QTc: 431 Interpretive Statements SINUS RHYTHM WITH FIRST DEGREE AV BLOCK SINUS ARRHYTHMIA AND OCCASIONAL VENTRICULAR PREMATURE COMPLEXES RIGHT BUNDLE BRANCH BLOCK [120+ ms QRS DURATION, UPRIGHT V1, 40+ ms S IN I/aVL/V4/V5/V6] Compared to ECG 04/14/2023 17:35:41 First degree AV block now present Sinus tachycardia no longer present Electronically Signed On 07-09-2023 22:59:47 CDT by Pippa Zimmerman M.D. [id number]
[2023-07-09 06:13] VITALS: BP 131/84; PULSE 85; RESP 19; O2SAT 94
--- NOTE | 2023-07-09 06:25 | W.ED.EXTPRO ---
HPI - Extremity Problem General: Chief complaint: Extremity Injury, Upper Stated complaint: right shoulder pain Time Seen by Provider: 07/09/23 05:55 Source: patient Mode of arrival: EMS History of Present Illness: 82-year-old male presents emergency room via EMS complaining of right sided pain. He woke up this morning has right shoulder pain and pain rating to his right arm also patient reports pain to right upper chest. Patient reports he fell a couple days ago injured his right elbow. He also relates a fall he had back in April where he seemed to injure the shoulder at that time. Pain is reproducible with palpation and movement. No associated shortness of breath. MD Complaint: joint pain Onset (ago): day(s) Pain Consistency: intermittent Location: right Quality: aching Radiation: distal Relieving factors: rest Exacerbating factors: range of motion and palpation Associated symptoms: Reports arthralgias; Deny chest pain, fever(s), myalgias, rash or short of breath Review of Systems Const: Denies: fever(s) or chills Card: Denies: chest pain Resp: Denies: dyspnea GI: Denies: abdominal pain : Denies: dysuria, urinary frequency or urinary urgency Musc: Denies: neck pain or back pain Skin/Breast: Denies: rash PFSH ED PFSH: Medical History Depression Chronic kidney disease Hyperlipidemia Atrial fibrillation Urgency incontinence Benign prostatic hyperplasia with lower urinary tract symptoms Urolithiasis Carotid bruit Syncope Diabetes mellitus Hypertension CHF (congestive heart failure) CAD (coronary artery disease) This patient had a coronary bypass surgery in 2008 along with a mitral valve repair and a maze procedure, at the [facility] in [place]. Surgical History History of tonsillectomy and adenoidectomy History of loop recorder placed late 2020 or early 2021 H/O carpal tunnel repair bilateral S/P trigger finger release History of maze procedure History of mitral valve replacement with bioprosthetic valve S/P ureteral stent placement Hx of CABG Family History Mother , AT AGE 86 No problems noted. Father , AT AGE 65 Stroke Other Hyperlipidemia Hypertension Social History Smoking and tobacco/nicotine status: former use of tobacco/nicotine Alcohol intake: never Substance/Drug Use: never Lives independently: Yes Marital status: / Current occupational status: retired Physical Exam Const: GENERAL APPEARANCE: cooperative and comfortable ORIENTATION/CONSCIOUSNESS: Yes awake, Yes oriented to person, Yes oriented to place and Yes oriented to time HENMT: COMMON NORMALS: normocephalic, atraumatic and hearing grossly normal bilaterally HEAD & SCALP: normocephalic and atraumatic Resp: COMMON NORMALS: normal respiratory effort, No retractions, No use of accessory muscles and clear to auscultation bilaterally AUSCULTATION: clear to auscultation bilaterally Cardio: COMMON NORMALS: regular rate, regular rhythm and No murmurs present (Cardio) RATE: regular rate RHYTHM: regular rhythm GI: COMMON NORMALS: Soft to palpation and No hepatosplenomegaly present AUSCULTATION: Yes normoactive bowel sounds PALPATION: Yes Soft to palpation, No Tenderness to palpation present (GI), No Guarding due to palpation present (GI) and Yes No hepatosplenomegaly present Extremity: COMMON NORMALS: normal to inspection, capillary refill normal, no clubbing, cyanosis or edema, no calf tenderness and no pedal edema Neuro: SENSORIUM/ORIENTATION: Yes oriented to person, Yes oriented to place and Yes oriented to time Skin: COMMON NORMALS: no rashes or lesions noted GENERAL SKIN EXAM: no rashes or lesions noted Course Vital Signs: Vital signs: Vital Signs Temperature 98.3 F 07/09/23 05:50 Pulse Rate 85 07/09/23 08:00 Respiratory Rate 16 07/09/23 08:00 Blood Pressure 124/72 07/09/23 08:00 Pulse Oximetry 93 07/09/23 08:00 MDM - Extremity (Nontraumatic) Medical Decision Making Patient states he is feeling better he is not having any further symptoms reviewed findings with the patient. X-ray negative. EKGs did not show any acute ST changes and cardiac enzymes were negative. Will discharge patient home and have him follow-up with his primary care doctor and commissioner conservation of resources return if he has further problems. Medical Records I reviewed the patient's medical records. Lab Data I reviewed the patient's lab results. 07/09/23 06:40 07/09/23 06:40 Radiology Impressions Shoulder X-Ray 07/09/23 06:04 IMPRESSION: No acute osseous pathology. Chest X-Ray 07/09/23 06:32 IMPRESSION: 1. Mild cardiomegaly stable. 2. No acute focal pulmonary opacities are detected. Elbow X-Ray 07/09/23 06:32 IMPRESSION: No acute osseous pathology. Laboratory Results WBC 8.14 10^3/uL (3.29-11.43) 07/09/23 06:40 RBC 4.26 10^6/uL (3.85-5.65) 07/09/23 06:40 Hgb 13.50 g/dL (11.27-16.99) 07/09/23 06:40 Hct 40.3 % (37-53) 07/09/23 06:40 MCV 94.6 fl (82-101) 07/09/23 06:40 MCH 31.7 pg (27-33) 07/09/23 06:40 MCHC 33.5 g/dL (30-55) 07/09/23 06:40 RDW 13.6 % (12.1-15.1) 07/09/23 06:40 Plt Count 138 10^3/cmm (157-399) L 07/09/23 06:40 MPV 9.3 fL (7.4-10.4) 07/09/23 06:40 Neut % (Auto) 67.9 % 07/09/23 06:40 Lymph % (Auto) 22.1 % 07/09/23 06:40 [place] % (Auto) 6.8 % 07/09/23 06:40 Eos % (Auto) 2.3 % 07/09/23 06:40 Baso % (Auto) 0.5 % 07/09/23 06:40 Neut # (Auto) 5.53 10^3/uL (1.8-7.7) 07/09/23 06:40 Lymph # (Auto) 1.8 10^3/uL (0.8-4.8) 07/09/23 06:40 [place] # (Auto) 0.6 10^3/uL (0.2-0.9) 07/09/23 06:40 Eos # (Auto) 0.2 10^3/uL (0.0-0.8) 07/09/23 06:40 Baso # (Auto) 0.0 10^3/uL (0.0-0.1) 07/09/23 06:40 Nucleated RBC % (auto) 0 % 07/09/23 06:40 Nucleated RBCs # 0.0 /100WBC 07/09/23 06:40 Sodium 137 mmol/L (136-145) 07/09/23 06:40 Potassium 4.1 mmol/L (3.5-5.1) 07/09/23 06:40 Chloride 102 mmol/L (98-107) 07/09/23 06:40 Carbon Dioxide 27 mmol/L (22-29) 07/09/23 06:40 Anion Gap 12.1 (5-19) 07/09/23 06:40 BUN 32 mg/dL (8-23) H 07/09/23 06:40 Creatinine 1.2 mg/dL (0.7-1.2) 07/09/23 06:40 GFR Calculation Not Reportable 07/09/23 06:40 Glucose 178 mg/dL (65-115) H 07/09/23 06:40 Calculated Osmolality 295 mOsm/kg (285-295) 07/09/23 06:40 Calcium 9.2 mg/dL (8.5-10.5) 07/09/23 06:40 Total Bilirubin 0.6 mg/dL (0.15-1.2) 07/09/23 06:40 AST 16 U/L (0-40) 07/09/23 06:40 ALT 19 U/L (0-41) 07/09/23 06:40 Alkaline Phosphatase 82 U/L (40-130) 07/09/23 06:40 Troponin T Baseline 32 ng/L (0-15) H 07/09/23 06:40 Troponin T 120 Minute 30.24 ng/L (0-15) H 07/09/23 08:38 Delta Troponin T -1.76 ABS# (0-10) L 07/09/23 08:38 Total Protein 6.4 g/dL (6.6-8.7) L 07/09/23 06:40 Albumin 3.5 g/dL (3.5-5.2) 07/09/23 06:40 Globulin 2.9 g/dL (1.3-4.6) 07/09/23 06:40 All radiology interpretation(s) finalized by discharge Discharge Plan Discharge Patient Disposition: Home Clinical Impression: Atypical chest pain, Acute shoulder pain Condition: Stable Prescriptions: No Action tamsulosin 0.4 mg capsule 0.4 mg PO BID Qty: 180 3RF memantine 5 mg tablet 5 mg PO BID duloxetine 20 mg capsule,delayed release(DR/EC) 40 mg PO DAILY Ozempic 0.25 mg or 0.5 mg (2 mg/3 mL) pen injector 0.5 mg SUBCUT Q7D Rx Instructions: on thu (DME) diabetic shoes with 3 inserts See Rx Instructions .Route .MEDSUPPLY Qty: 1 0RF Rx Instructions: As directed to the shoe chilo atorvastatin 80 mg Tablet 80 mg PO QPM magnesium oxide [MagOx] 400 mg (241.3 mg magnesium) Tablet 400 mg PO BID calcium polycarbophil 625 mg Tablet 1,250 mg PO DAILY omeprazole 20 mg Tablet,Delayed Release (Dr/Ec) 20 mg PO BID cholecalciferol (vitamin D3) [Vitamin D3] 50 mcg (2,000 unit) tablet 2,000 unit PO QPM insulin aspart U-100 [Novolog FlexPen U-100 Insulin] 100 unit/mL (3 mL) insulin pen See Rx Instructions SUBCUT TID Rx Instructions: SLIDING SCALE SUBCUT THREE TIMES A DAY aspirin 81 mg Tablet,Delayed Release (Dr/Ec) 81 mg PO BEDTIME finasteride 5 mg Tablet 5 mg PO QPM buspirone 10 mg Tablet 5 mg PO TID vitamin B complex Tablet 2 tab PO QAM pyridoxine (vitamin B6) [Vitamin B-6] 100 mg Tablet 100 mg PO QAM insulin glargine [Lantus U-100 Insulin] 100 unit/mL Solution 20 unit SUBCUT BEDTIME furosemide 40 mg tablet 40 mg PO QAM PRN (Reason: Edema) acetaminophen 500 mg Tablet 500 mg PO QID PRN (Reason: Pain) carvedilol 3.125 mg Tablet 3.125 mg PO BID Rx Instructions: must administer with a meal/food potassium chloride 20 mEq tablet,ER particles/crystals 20 meq PO DAILY midodrine 10 mg tablet 10 mg PO TID PRN (Reason: LOW BLOOD) Sodium Fluoride 5000 Plus 1.1 % Cream 1 applic DENTAL DAILY Fish Oil 1,000 mg (120 mg-180 mg) Capsule 1 cap PO BID Eliquis 5 mg Tablet 2.5 mg PO BID albuterol sulfate 90 mcg/actuation HFA aerosol inhaler 2 inh INHALATION Q4H PRN (Reason: shortness of breath or wheezing) Qty: 6.7 1RF Discharge Orders: Discharge ED (Routine); Ordered 07/09/23 Ordered By: Wilver Babcock Referrals: Sam Fay, DO [Primary Care Provider] - Discharge Diet: Usual diet Discharge Activity: Increase activity as tolerated Patient Instructions: Opioid Safety, Pain Management Activity Restrictions/Additional Instructions: Thank you for choosing [facility] for your healthcare needs today. Please realize this is an emergency room and that we are providing you with a medical screening exam and this may not be complete and all inclusive of all the testing and or work up that you may need to determine your ailment or severity of your illness. It is very important that you follow up as instructed or that you return to the Emergency Department should you have concerns or if your condition changes or worsens in any way. You were seen today for complaints of right shoulder pain and right chest pain your cardiac enzymes and EKG did not show any acute changes x-rays of your shoulder showed arthritic changes but no acute fractures. Recommend that you follow-up with your commissioner conservation of resources and your primary care doctor regarding these issues limit activity with the shoulder. Coding Level of Care Code ED Nurse Quality for Nathaniel Alicea
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
--- NOTE | 2023-07-09 06:32 | XRR_ITS ---
PROCEDURE INFORMATION: Exam: XR Chest Exam date and time: 07/09/2023 6:56 AM Age: 82 years old Clinical indication: Cough and dyspnea; Additional info: Dyspnea/cough TECHNIQUE: Imaging protocol: Radiologic exam of the chest. Views: 1 view. Total images: 3 COMPARISON: CR XR chest 1V portable [id number] 04/14/2023 11:50 AM FINDINGS: Lungs: No acute focal pulmonary opacities are detected. Pleural spaces: Unremarkable. No pleural effusion. No pneumothorax. Heart/Mediastinum: Loop cardiac recorder present. Prior coronary artery bypass grafting. Mild cardiomegaly stable. Bones/joints: Unremarkable. XR/XR chest 1V portable [id number] IMPRESSION: 1. Mild cardiomegaly stable. 2. No acute focal pulmonary opacities are detected.
[2023-07-09 06:46] LABS: Basophils % 0.5 %; Eosinophils # 0.2 10^3/uL (0.0-0.8); Eosinophils % 2.3 %; Hematocrit 40.3 % (37-53); Lymphocytes # 1.8 10^3/uL (0.8-4.8); Lymphocytes % 22.1 %; Mean Corpuscular HGB Conc 33.5 g/dL (30-55); Mean Corpuscular Hemoglobin 31.7 pg (27-33); Mean Corpuscular Volume 94.6 fl (82-101); Mean Platelet Volume 9.3 fL (7.4-10.4); Monocytes # 0.6 10^3/uL (0.2-0.9); Monocytes % 6.8 %; Neutrophils # 5.53 10^3/uL (1.8-7.7); Neutrophils % 67.9 %; Nucleated Red Blood Cells % 0 %; Platelet Count 138 10^3/cmm (157-399); Red Blood Count 4.26 10^6/uL (3.85-5.65); Red Cell Distribution Width 13.6 % (12.1-15.1); White Blood Count 8.14 10^3/uL (3.29-11.43)
[2023-07-09 07:05] LABS: Alanine Aminotransferase 19 U/L (0-41); Albumin Level 3.5 g/dL (3.5-5.2); Alkaline Phosphatase 82 U/L (40-130); Anion Gap 12.1 (5-19); Aspartate Amino Transferase 16 U/L (0-40); Blood Urea Nitrogen 32 mg/dL (8-23); Calcium 9.2 mg/dL (8.5-10.5); Carbon Dioxide 27 mmol/L (22-29); Chloride 102 mmol/L (98-107); Creatinine Clr Calc Pharmacy 52.4707; Globulin 2.9 g/dL (1.3-4.6); Glucose 178 mg/dL (65-115); Osmolality Calculated 295 mOsm/kg (285-295); Potassium 4.1 mmol/L (3.5-5.1); Sodium 137 mmol/L (136-145); Total Bilirubin 0.6 mg/dL (0.15-1.2); Total Protein 6.4 g/dL (6.6-8.7); Troponin(5th) Baseline 32 ng/L (0-15)
--- NOTE | 2023-07-09 07:23 | PC.PHAR ---
pt is va-faxing for med list 7:20am 07/09/23
[2023-07-09 08:00] VITALS: BP 124/72; PULSE 85; RESP 16; O2SAT 93
[2023-07-09 09:01] LABS: Troponin 5 2HR 30.24 ng/L (0-15)
[2023-07-09 09:05] LABS: Troponin 5 2HR Delta -1.76 ABS# (0-10)
--- NOTE | 2023-07-09 09:31 | ECG_ITS ---
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 Measurements Intervals [place] Rate: 86 P: 0 ME: 0 QRS: 56 QRSD: 134 T: -20 QT: 387 QTc: 463 Interpretive Statements Sinus rhythm with a first-degree AV block RIGHT BUNDLE BRANCH BLOCK [120+ ms QRS DURATION, UPRIGHT V1, 40+ ms S IN I/aVL/V4/V5/V6] Compared to ECG 07/09/2023 06:08:19 Sinus rhythm no longer present Ventricular premature complex(es) no longer present First degree AV block no longer present Electronically Signed On 07-09-2023 23:11:34 CDT by Pippa Zimmerman M.D. [id number]
== END 2023-07-09 10:08 | disposition home or self-care (01) ==
PROVIDERS: Emergency Provider Family Medicine; PCP Emergency Medicine Emergency Medical Services
DX: R07.89 Other chest pain (principal); M25.511 Pain in right shoulder; Z79.01 Long term (current) use of anticoagulants; Z79.85 Long-term (current) use of injectable non-insulin antidiabetic drugs; Z79.82 Long term (current) use of aspirin; Z79.4 Long term (current) use of insulin; Z87.891 Personal history of nicotine dependence; E11.22 Type 2 diabetes mellitus with diabetic chronic kidney disease; I13.0 Hypertensive heart and chronic kidney disease with heart failure and stage 1 through stage 4 chronic kidney disease, or unspecified chronic kidney disease; N18.9 Chronic kidney disease, unspecified; I50.9 Heart failure, unspecified; E78.5 Hyperlipidemia, unspecified; I25.10 Atherosclerotic heart disease of native coronary artery without angina pectoris; Z95.1 Presence of aortocoronary bypass graft
CPT/HCPCS: 36415; 71045; 73030; 73080; 80053; 84484; 85025; 93005; 99285

== ENCOUNTER 2023-07-13 16:29 | Emergency (ER) | payer OTHER, SELFPAY ==
[2023-07-13 16:42] VITALS: BP 112/72; PULSE 89; RESP 18; TEMP 36.6; O2SAT 91; BMI 29.0
[2023-07-13 16:48] LABS: Glucose Point of Care 104 mg/dL (70-110)
--- NOTE | 2023-07-13 16:53 | ECG_ITS ---
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 Measurements Intervals [place] Rate: 86 P: 73 ME: 233 QRS: 51 QRSD: 138 T: -17 QT: 376 QTc: 451 Interpretive Statements SINUS RHYTHM WITH FIRST DEGREE AV BLOCK WITH OCCASIONAL VENTRICULAR PREMATURE COMPLEXES RIGHT BUNDLE BRANCH BLOCK [120+ ms QRS DURATION, UPRIGHT V1, 40+ ms S IN I/aVL/V4/V5/V6] Compared to ECG 07/09/2023 09:31:25 Ventricular premature complex(es) now present First degree AV block now present Electronically Signed On 07-13-2023 23:21:21 CDT by Alexi Orona M.D. [id number]
--- NOTE | 2023-07-13 17:00 | ED_ITS ---
Documented by User: Wilver Babcock DO 07/14/23 06:12 HPI - Recheck/Abnormal Lab/Rx 2 General: Chief Complaint: Recheck/Abnormal Lab/Rx Stated Complaint: weakness Time Seen by Provider: 07/13/23 16:53 Source: patient Mode of arrival: ambulatory History of Present Illness: 82-year-old male presents emergency room with complaint of low blood sugars. He is on NovoLog Lantus and Ozempic and the past couple months states he is lost 40 or 50 pounds. He switched taking Lantus from nighttime to at noon because he thought that would keep his blood sugar from getting too low. He has been taking 20 units of Lantus at noon daily he has not been taking hardly any NovoLog at all because his blood sugars have been low and he states that he struggled to keep some above 100 on arrival here his blood sugar is 104. He had just eaten a Snickers bar. No other medication changes recently. Repeat blood sugar 149. Review of Systems 2 Const: Denies: fever(s) or chills Card: Denies: chest pain Resp: Denies: dyspnea GI: Denies: abdominal pain, nausea or vomiting : Denies: dysuria, urinary frequency or urinary urgency Musc: Denies: neck pain or back pain Skin/Breast: Denies: rash PFSH ED 2 PFSH: Medical History Depression Chronic kidney disease Hyperlipidemia Atrial fibrillation Urgency incontinence Benign prostatic hyperplasia with lower urinary tract symptoms Urolithiasis Carotid bruit Syncope Diabetes mellitus Hypertension CHF (congestive heart failure) CAD (coronary artery disease) This patient had a coronary bypass surgery in 2008 along with a mitral valve repair and a maze procedure, at the [facility] in [place]. Surgical History History of tonsillectomy and adenoidectomy History of loop recorder placed late 2020 or early 2021 H/O carpal tunnel repair bilateral S/P trigger finger release History of maze procedure History of mitral valve replacement with bioprosthetic valve S/P ureteral stent placement Hx of CABG Family History Mother , AT AGE 86 No problems noted. Father , AT AGE 65 Stroke Other Hyperlipidemia Hypertension Social History Smoking and tobacco/nicotine status: former use of tobacco/nicotine Alcohol intake: never Substance/Drug Use: never Lives independently: Yes Marital status: / Current occupational status: retired Physical Exam 2 Const: GENERAL APPEARANCE: cooperative and comfortable O RIENTATION/CONSCIOUSNESS: Yes awake, Yes oriented to person, Yes oriented to place and Yes oriented to time HENMT: COMMON NORMALS: normocephalic, atraumatic and hearing grossly normal bilaterally HEAD & SCALP: normocephalic and atraumatic Resp: COMMON NORMALS: normal respiratory effort, No retractions, No use of accessory muscles and clear to auscultation bilaterally AUSCULTATION: clear to auscultation bilaterally Cardio: COMMON NORMALS: regular rate, regular rhythm and No murmurs present (Cardio) RATE: regular rate RHYTHM: regular rhythm GI: COMMON NORMALS: Soft to palpation and No hepatosplenomegaly present A USCULTATION: Yes normoactive bowel sounds PALPATION: Yes Soft to palpation, No Tenderness to palpation present (GI), No Guarding due to palpation present (GI) and Yes No hepatosplenomegaly present Extremity: COMMON NORMALS: normal to inspection, capillary refill normal, no clubbing, cyanosis or edema, no calf tenderness and no pedal edema Neuro: SENSORIUM/ORIENTATION: Yes oriented to person, Yes oriented to place and Yes oriented to time Skin: COMMON NORMALS: no rashes or lesions noted GENERAL SKIN EXAM: no rashes or lesions noted Course 2 Vital Signs: Vital signs: Vital Signs Temperature 97.8 F 07/13/23 16:42 Pulse Rate 89 07/13/23 16:42 Respiratory Rate 18 07/13/23 16:42 Blood Pressure 112/72 07/13/23 16:42 Pulse Oximetry 91 07/13/23 16:42 Oxygen Delivery Me thod Room Air 07/13/23 16:42 MDM - Recheck/Abnormal Lab/Rx Medical Decision Making Suspect he has decreasing needs for insulin because of the significant weight loss since starting the Ozempic. Decrease Lantus to 15 units at at bedtime. Continue his Ozempic use the NovoLog on a sliding scale as previously prescribed. Follow-up with his primary care doctor to reevaluate blood sugar log in the next 4 to 5 days for further adjustments. Patient warned he may have elevated blood sugars for a time, if that is the case this can be controlled with his as needed NovoLog. His doctor can make adjustments to the Lantus based on his blood sugar logs. Care signed out to Dr. Beck at change of shift. See final notes for diagnosis and disposition. Medical Records I reviewed the patient's medical records. Lab Data I reviewed the patient's lab results. 07/13/23 17:07 07/13/23 17:07 Laboratory Results WBC 8.60 10^3/uL (3.29-11.43) 07/13/23 17:07 RBC 4.50 10^6/uL (3.85-5.65) 07/13/23 17:07 Hgb 14.40 g/dL (11.27-16.99) 07/13/23 17:07 Hct 42.4 % (37-53) 07/13/23 17:07 MCV 94.2 fl (82-101) 07/13/23 17:07 MCH 32.0 pg (27-33) 07/13/23 17:07 MCHC 34.0 g/dL (30-55) 07/13/23 17:07 RDW 13.6 % (12.1-15.1) 07/13/23 17:07 Plt Count 161 10^3/cmm (157-399) 07/13/23 17:07 MPV 9.3 fL (7.4-10.4) 07/13/23 17:07 Neut % (Auto) 73.1 % 07/13/23 17:07 Lymph % (Auto) 16.9 % 07/13/23 17:07 Kidder % (Auto) 6.5 % 07/13/23 17:07 Eos % (Auto) 2.6 % 07/13/23 17:07 Baso % (Auto) 0.6 % 07/13/23 17:07 Neut # (Auto) 6.29 10^3/uL (1.8-7.7) 07/13/23 17:07 Lymph # (Auto) 1.5 10^3/uL (0.8-4.8) 07/13/23 17:07 Kidder # (Auto) 0.6 10^3/uL (0.2-0.9) 07/13/23 17:07 Eos # (Auto) 0.2 10^3/uL (0.0-0.8) 07/13/23 17:07 Baso # (Auto) 0.1 10^3/uL (0.0-0.1) 07/13/23 17:07 Nucleated RBC % (auto) 0 % 07/13/23 17:07 Nucleated RBCs # 0.0 /100WBC 07/13/23 17:07 Sodium 141 mmol/L (136-145) 07/13/23 17:07 Potassium 4.4 mmol/L (3.5-5.1) 07/13/23 17:07 Chloride 105 mmol/L (98-107) 07/13/23 17:07 Carbon Dioxide 29 mmol/L (22-29) 07/13/23 17:07 Anion Gap 11.4 (5-19) 07/13/23 17:07 BUN 27 mg/dL (8-23) H 07/13/23 17:07 Creatinine 1.6 mg/dL (0.7-1.2) H 07/13/23 17:07 GFR Calculation Not Reportable 07/13/23 17:07 Glucose 93 mg/dL (65-115) 07/13/23 17:07 POC Glucose 89 mg/dL (70-110) 07/13/23 17:22 Calculated Osmolality 297 mOsm/kg (285-295) H 07/13/23 17:07 Calcium 8.9 mg/dL (8.5-10.5) 07/13/23 17:07 Total Bilirubin 0.5 mg/dL (0.15-1.2) 07/13/23 17:07 AST 18 U/L (0-40) 07/13/23 17:07 ALT 18 U/L (0-41) 07/13/23 17:07 Alkaline Phosphatase 87 U/L (40-130) 07/13/23 17:07 Total Protein 6.7 g/dL (6.6-8.7) 07/13/23 17:07 Albumin 3.9 g/dL (3.5-5.2) 07/13/23 17:07 Globulin 2.8 g/dL (1.3-4.6) 07/13/23 17:07 No radiology studies performed this visit Discharge Plan Discharge Patient Disposition: Home Clinical Impression: Hypoglycemia Condition: Stable Prescriptions: Changed Lantus U-100 Insulin 100 unit/mL Solution 15 unit SUBCUT BEDTIME Qty: 10 0RF No Action tamsulosin 0.4 mg capsule 0.4 mg PO BID Qty: 180 3RF memantine 5 mg tablet 5 mg PO BID duloxetine 20 mg capsule,delayed release(DR/EC) 40 mg PO DAILY Ozempic 0.25 mg or 0.5 mg (2 mg/3 mL) pen injector 0.5 mg SUBCUT Q7D Rx Instructions: on thu (DME) diabetic shoes with 3 inserts See Rx Instructions .Route .MEDSUPPLY Qty: 1 0RF Rx Instructions: As directed to the shoe chilo atorvastatin 80 mg Tablet 80 mg PO QPM magnesium oxide [MagOx] 400 mg (241.3 mg magnesium) Tablet 400 mg PO BID calcium polycarbophil 625 mg Tablet 1,250 mg PO DAILY omeprazole 20 mg Tablet,Delayed Release (Dr/Ec) 20 mg PO BID cholecalciferol (vitamin D3) [Vitamin D3] 50 mcg (2,000 unit) tablet 2,000 unit PO QPM insulin aspart U-100 [Novolog FlexPen U-100 Insulin] 100 unit/mL (3 mL) insulin pen See Rx Instructions SUBCUT TID Rx Instructions: SLIDING SCALE SUBCUT THREE TIMES A DAY aspirin 81 mg Tablet,Delayed Release (Dr/Ec) 81 mg PO BEDTIME finasteride 5 mg Tablet 5 mg PO QPM buspirone 10 mg Tablet 5 mg PO TID vitamin B complex Tablet 2 tab PO QAM pyridoxine (vitamin B6) [Vitamin B-6] 100 mg Tablet 100 mg PO QAM furosemide 40 mg tablet 40 mg PO QAM PRN (Reason: Edema) acetaminophen 500 mg Tablet 500 mg PO QID PRN (Reason: Pain) carvedilol 3.125 mg Tablet 3.125 mg PO BID Rx Instructions: must administer with a meal/food potassium chloride 20 mEq tablet,ER particles/crystals 20 meq PO DAILY midodrine 10 mg tablet 10 mg PO TID PRN (Reason: LOW BLOOD) Sodium Fluoride 5000 Plus 1.1 % Cream 1 applic DENTAL DAILY Fish Oil 1,000 mg (120 mg-180 mg) Capsule 1 cap PO BID Eliquis 5 mg Tablet 2.5 mg PO BID albuterol sulfate 90 mcg/actuation HFA aerosol inhaler 2 inh INHALATION Q4H PRN (Reason: shortness of breath or wheezing) Qty: 6.7 1RF Discharge Orders: Discharge ED (Routine); Ordered 07/13/23 Ordered By: Selma Beck Referrals: Sam Fya, DO [Primary Care Provider] - Patient Instructions: Opioid Safety, Pain Management Activity Restrictions/Additional Instructions: Thank you for choosing [facility] for your healthcare needs today. Please realize this is an emergency room and that we are providing you with a medical screening exam and this may not be complete and all inclusive of all the testing and or work up that you may need to determine your ailment or severity of your illness. It is very important that you follow up as instructed or that you return to the Emergency Department should you have concerns or if your condition changes or worsens in any way. You are seen today for reports of low blood sugar. Recommend decrease your Lantus to 15 units which should be taken at bedtime (do not take at noon). Continue your Ozempic using NovoLog on a sliding scale as previously prescribed. Check your blood sugars with meals and at bedtime. You should see your primary care doctor in 4 to 5 days and review your blood sugar logs with them. They can make further adjustments as indicated. It is possible that your blood sugars will run a little high the next few days with this adjustment your doctor can make further adjustments if appropriate. If it continues to run low they can further decrease your Lantus. It is likely you do not require as much Lantus because of the significant weight loss you have had since starting the Ozempic. Coding Level of Care Code ED Family Practice Physician for Chg Fwd Documented by User: Selma Beck MD 07/13/23 18:52 HPI - Recheck/Abnormal Lab/Rx 2 General: Chief Complaint: Recheck/Abnormal Lab/Rx Stated Complaint: weakness Time Seen by Provider: 07/13/23 16:53 [facility] ED 2 PFSH: Medical History Depression Chronic kidney disease Hyperlipidemia Atrial fibrillation Urgency incontinence Benign prostatic hyperplasia with lower urinary tract symptoms Urolithiasis Carotid bruit Syncope Diabetes mellitus Hypertension CHF (congestive heart failure) CAD (coronary artery disease) This patient had a coronary bypass surgery in 2008 along with a mitral valve repair and a maze procedure, at the [facility] in [place]. Surgical History History of tonsillectomy and adenoidectomy History of loop recorder placed late 2020 or early 2021 H/O carpal tunnel repair bilateral S/P trigger finger release History of maze procedure History of mitral valve replacement with bioprosthetic valve S/P ureteral stent placement Hx of CABG Family History Mother , AT AGE 86 No problems noted. Father , AT AGE 65 Stroke Other Hyperlipidemia Hypertension Social History Smoking and tobacco/nicotine status: former use of tobacco/nicotine Alcohol intake: never Substance/Drug Use: never Lives independently: Yes Marital status: / Current occupational status: retired Course 2 Vital Signs: Vital signs: Vital Signs Temperature 97.8 F 07/13/23 16:42 Pulse Rate 89 07/13/23 16:42 Respiratory Rate 18 07/13/23 16:42 Blood Pressure 112/72 07/13/23 16:42 Pulse Oximetry 91 07/13/23 16:42 Oxygen Delivery Me thod Room Air 07/13/23 16:42 MDM - Recheck/Abnormal Lab/Rx Lab Data 07/13/23 17:07 07/13/23 17:07 Laboratory Results WBC 8.60 10^3/uL (3.29-11.43) 07/13/23 17:07 RBC 4.50 10^6/uL (3.85-5.65) 07/13/23 17:07 Hgb 14.40 g/dL (11.27-16.99) 07/13/23 17:07 Hct 42.4 % (37-53) 07/13/23 17:07 MCV 94.2 fl (82-101) 07/13/23 17:07 MCH 32.0 pg (27-33) 07/13/23 17:07 MCHC 34.0 g/dL (30-55) 07/13/23 17:07 RDW 13.6 % (12.1-15.1) 07/13/23 17:07 Plt Count 161 10^3/cmm (157-399) 07/13/23 17:07 MPV 9.3 fL (7.4-10.4) 07/13/23 17:07 Neut % (Auto) 73.1 % 07/13/23 17:07 Lymph % (Auto) 16.9 % 07/13/23 17:07 Kidder % (Auto) 6.5 % 07/13/23 17:07 Eos % (Auto) 2.6 % 07/13/23 17:07 Baso % (Auto) 0.6 % 07/13/23 17:07 Neut # (Auto) 6.29 10^3/uL (1.8-7.7) 07/13/23 17:07 Lymph # (Auto) 1.5 10^3/uL (0.8-4.8) 07/13/23 17:07 Kidder # (Auto) 0.6 10^3/uL (0.2-0.9) 07/13/23 17:07 Eos # (Auto) 0.2 10^3/uL (0.0-0.8) 07/13/23 17:07 Baso # (Auto) 0.1 10^3/uL (0.0-0.1) 07/13/23 17:07 Nucleated RBC % (auto) 0 % 07/13/23 17:07 Nucleated RBCs # 0.0 /100WBC 07/13/23 17:07 Sodium 141 mmol/L (136-145) 07/13/23 17:07 Potassium 4.4 mmol/L (3.5-5.1) 07/13/23 17:07 Chloride 105 mmol/L (98-107) 07/13/23 17:07 Carbon Dioxide 29 mmol/L (22-29) 07/13/23 17:07 Anion Gap 11.4 (5-19) 07/13/23 17:07 BUN 27 mg/dL (8-23) H 07/13/23 17:07 Creatinine 1.6 mg/dL (0.7-1.2) H 07/13/23 17:07 GFR Calculation Not Reportable 07/13/23 17:07 Glucose 93 mg/dL (65-115) 07/13/23 17:07 POC Glucose 89 mg/dL (70-110) 07/13/23 17:22 Calculated Osmolality 297 mOsm/kg (285-295) H 07/13/23 17:07 Calcium 8.9 mg/dL (8.5-10.5) 07/13/23 17:07 Total Bilirubin 0.5 mg/dL (0.15-1.2) 07/13/23 17:07 AST 18 U/L (0-40) 07/13/23 17:07 ALT 18 U/L (0-41) 07/13/23 17:07 Alkaline Phosphatase 87 U/L (40-130) 07/13/23 17:07 Total Protein 6.7 g/dL (6.6-8.7) 07/13/23 17:07 Albumin 3.9 g/dL (3.5-5.2) 07/13/23 17:07 Globulin 2.8 g/dL (1.3-4.6) 07/13/23 17:07 Other Data Patient tolerated p.o. and is ready to go home. Discharge Plan Discharge Patient Disposition: Home Clinical Impression: Hypoglycemia Condition: Stable Prescriptions: Changed Lantus U-100 Insulin 100 unit/mL Solution 15 unit SUBCUT BEDTIME Qty: 10 0RF No Action tamsulosin 0.4 mg capsule 0.4 mg PO BID Qty: 180 3RF memantine 5 mg tablet 5 mg PO BID duloxetine 20 mg capsule,delayed release(DR/EC) 40 mg PO DAILY Ozempic 0.25 mg or 0.5 mg (2 mg/3 mL) pen injector 0.5 mg SUBCUT Q7D Rx Instructions: on thu (DME) diabetic shoes with 3 inserts See Rx Instructions .Route .MEDSUPPLY Qty: 1 0RF Rx Instructions: As directed to the shoe chilo atorvastatin 80 mg Tablet 80 mg PO QPM magnesium oxide [MagOx] 400 mg (241.3 mg magnesium) Tablet 400 mg PO BID calcium polycarbophil 625 mg Tablet 1,250 mg PO DAILY omeprazole 20 mg Tablet,Delayed Release (Dr/Ec) 20 mg PO BID cholecalciferol (vitamin D3) [Vitamin D3] 50 mcg (2,000 unit) tablet 2,000 unit PO QPM insulin aspart U-100 [Novolog FlexPen U-100 Insulin] 100 unit/mL (3 mL) insulin pen See Rx Instructions SUBCUT TID Rx Instructions: SLIDING SCALE SUBCUT THREE TIMES A DAY aspirin 81 mg Tablet,Delayed Release (Dr/Ec) 81 mg PO BEDTIME finasteride 5 mg Tablet 5 mg PO QPM buspirone 10 mg Tablet 5 mg PO TID vitamin B complex Tablet 2 tab PO QAM pyridoxine (vitamin B6) [Vitamin B-6] 100 mg Tablet 100 mg PO QAM furosemide 40 mg tablet 40 mg PO QAM PRN (Reason: Edema) acetaminophen 500 mg Tablet 500 mg PO QID PRN (Reason: Pain) carvedilol 3.125 mg Tablet 3.125 mg PO BID Rx Instructions: must administer with a meal/food potassium chloride 20 mEq tablet,ER particles/crystals 20 meq PO DAILY midodrine 10 mg tablet 10 mg PO TID PRN (Reason: LOW BLOOD) Sodium Fluoride 5000 Plus 1.1 % Cream 1 applic DENTAL DAILY Fish Oil 1,000 mg (120 mg-180 mg) Capsule 1 cap PO BID Eliquis 5 mg Tablet 2.5 mg PO BID albuterol sulfate 90 mcg/actuation HFA aerosol inhaler 2 inh INHALATION Q4H PRN (Reason: shortness of breath or wheezing) Qty: 6.7 1RF Discharge Orders: Discharge ED (Routine); Ordered 07/13/23 Ordered By: Selma Beck Referrals: Sam Fay DO [Primary Care Provider] - Patient Instructions: Opioid Safety, Pain Management Activity Restrictions/Additional Instructions: Thank you for choosing [facility] for your healthcare needs today. Please realize this is an emergency room and that we are providing you with a medical screening exam and this may not be complete and all inclusive of all the testing and or work up that you may need to determine your ailment or severity of your illness. It is very important that you follow up as instructed or that you return to the Emergency Department should you have concerns or if your condition changes or worsens in any way. You are seen today for reports of low blood sugar. Recommend decrease your Lantus to 15 units which should be taken at bedtime (do not take at noon). Continue your Ozempic using NovoLog on a sliding scale as previously prescribed. Check your blood sugars with meals and at bedtime. You should see your primary care doctor in 4 to 5 days and review your blood sugar logs with them. They can make further adjustments as indicated. It is possible that your blood sugars will run a little high the next few days with this adjustment your doctor can make further adjustments if appropriate. If it continues to run low they can further decrease your Lantus. It is likely you do not require as much Lantus because of the significant weight loss you have had since starting the Ozempic. Coding Level of Care Code ED Family Practice Physician for Nathaniel Alicea
[2023-07-13 17:25] LABS: Glucose Point of Care 89 mg/dL (70-110)
[2023-07-13 17:31] LABS: Basophils # 0.1 10^3/uL (0.0-0.1); Basophils % 0.6 %; Eosinophils # 0.2 10^3/uL (0.0-0.8); Eosinophils % 2.6 %; Hematocrit 42.4 % (37-53); Lymphocytes # 1.5 10^3/uL (0.8-4.8); Lymphocytes % 16.9 %; Mean Corpuscular Volume 94.2 fl (82-101); Mean Platelet Volume 9.3 fL (7.4-10.4); Monocytes # 0.6 10^3/uL (0.2-0.9); Monocytes % 6.5 %; Neutrophils # 6.29 10^3/uL (1.8-7.7); Neutrophils % 73.1 %; Nucleated Red Blood Cells % 0 %; Platelet Count 161 10^3/cmm (157-399); Red Cell Distribution Width 13.6 % (12.1-15.1)
[2023-07-13 17:43] LABS: Alanine Aminotransferase 18 U/L (0-41); Albumin Level 3.9 g/dL (3.5-5.2); Alkaline Phosphatase 87 U/L (40-130); Anion Gap 11.4 (5-19); Aspartate Amino Transferase 18 U/L (0-40); Blood Urea Nitrogen 27 mg/dL (8-23); Calcium 8.9 mg/dL (8.5-10.5); Carbon Dioxide 29 mmol/L (22-29); Chloride 105 mmol/L (98-107); Globulin 2.8 g/dL (1.3-4.6); Glucose 93 mg/dL (65-115); Osmolality Calculated 297 mOsm/kg (285-295); Potassium 4.4 mmol/L (3.5-5.1); Sodium 141 mmol/L (136-145); Total Bilirubin 0.5 mg/dL (0.15-1.2); Total Protein 6.7 g/dL (6.6-8.7)
== END 2023-07-13 19:03 | disposition home or self-care (01) ==
PROVIDERS: Emergency Medicine; Family Medicine; Emergency Provider Emergency Medicine; PCP Emergency Medicine Emergency Medical Services
DX: E11.649 Type 2 diabetes mellitus with hypoglycemia without coma (principal); E11.22 Type 2 diabetes mellitus with diabetic chronic kidney disease; I13.0 Hypertensive heart and chronic kidney disease with heart failure and stage 1 through stage 4 chronic kidney disease, or unspecified chronic kidney disease; N18.9 Chronic kidney disease, unspecified; I50.9 Heart failure, unspecified; E78.5 Hyperlipidemia, unspecified; I25.10 Atherosclerotic heart disease of native coronary artery without angina pectoris; Z95.1 Presence of aortocoronary bypass graft; Z87.891 Personal history of nicotine dependence; Z79.85 Long-term (current) use of injectable non-insulin antidiabetic drugs; Z79.4 Long term (current) use of insulin; Z79.01 Long term (current) use of anticoagulants; Z79.82 Long term (current) use of aspirin
CPT/HCPCS: 36416; 80048; 80053; 82962; 85025; 93005; 99284

== ENCOUNTER 2023-07-30 12:49 | Inpatient (IN) | payer OTHER, MEDICARE, SELFPAY ==
[2023-07-30] VITALS (9 sets, daily range): BP systolic 129–162; BP diastolic 58–92; PULSE 73–81; RESP 16–17; TEMP 36.5; O2SAT 94–95; BMI 29.5
--- NOTE | 2023-07-30 13:03 | CT_ITS ---
WS: [id number] CT HEAD NONCONTRAST HISTORY: Symptoms of acute stroke TECHNIQUE: Contiguous axial imaging performed through the brain in 2.5 mm imaging. Bone and soft tiss ue windows. Sagittal and coronal reformats reviewed. All CT scans at [facility] use at least one of these dose optimization techniques: automated exposure control; mA and/or kV adjustment per pa tient size (includes targeted exams where dose is matched to clinical indication); or iterative recon struction. DLP: 1187.84 mGy COMPARISON: 07/20/2020 No acute intracranial hemorrhage, midline shift or mass effect. Moderate atrophy. Mild small vessel ischemic disease. Very minimal progression of small vessel ischem ic changes since the prior exam. Ventricles: Normal size with no hydrocephalus. No inferior displacement of the cerebellar tonsils. Paranasal sinuses: Mucoperiosteal thickening RIGHT maxillary sinus. No air-fluid levels. Mastoid air cells: Well pneumatized. Calvarium and scalp: Skull is intact with no soft tissue edema or swelling. CT/CT head thrombolytic 86245 IMPRESSION: 1. No acute intracranial hemorrhage or edema. 2. Mild atrophy and small vessel ischemic disease. Mild progression of chronic changes since 07/21/2023. Notified Le Rousseau MD at 07/30/2023 1:22 PM.
--- NOTE | 2023-07-30 13:03 | XR_ITS ---
WS: [id number] Portable AP upright chest, 07/30/2023 Clinical Data: cva Comparison: Portable chest, 07/09/2023 Findings: No nodules, masses or effusions are seen. The heart is slightly enlarged. The pulmonary vas cularity is not increased. No pneumonia or pneumothorax is seen. Midline sternotomy sutures are prese nt. The aortic arch and descending thoracic aorta show minimal calcification and tortuosity. There is a small recording device overlying the left chest. There are monitor leads on the chest wall. XR/XR chest 1V portable 37510 Impression: Atherosclerosis and cardiomegaly.
[2023-07-30 13:09] LABS: Glucose Point of Care 192 mg/dL (70-110)
--- NOTE | 2023-07-30 13:21 | ECG_ITS ---
[facility] Test Date: 2023-07-30 Pat Name: Jose Armendariz Department: Room: Gender: Male [employer]: : 1940 Requested By: Le Rousseau Order Number: [id number] Rebeca MD: Alexi Orona M.D. Measurements Intervals [place] Rate: 80 P: 85 CT: 232 QRS: 86 QRSD: 134 T: -44 QT: 406 QTc: 470 Interpretive Statements SINUS RHYTHM WITH FIRST DEGREE AV BLOCK WITH OCCASIONAL VENTRICULAR PREMATURE COMPLEXES RIGHT BUNDLE BRANCH BLOCK [120+ ms QRS DURATION, UPRIGHT V1, 40+ ms S IN I/aVL/V4/V5/V6] MODERATE T-WAVE ABNORMALITY, CONSIDER INFERIOR ISCHEMIA [-0.1+ mV T-WAVE IN II/aVF] Compared to ECG 07/13/2023 17:11:59 Ventricular premature complex(es) now present T-wave abnormality now present Possible ischemia now present Electronically Signed On 07-30-2023 17:08:50 CDT by Alexi Orona M.D. [email or web address]
[2023-07-30 13:56] LABS: Basophils % 0.5 %; Eosinophils # 0.2 10^3/uL (0.0-0.8); Eosinophils % 2.3 %; Hematocrit 41.3 % (37-53); Lymphocytes # 1.5 10^3/uL (0.8-4.8); Lymphocytes % 18.2 %; Mean Corpuscular HGB Conc 34.4 g/dL (30-55); Mean Corpuscular Hemoglobin 31.9 pg (27-33); Mean Corpuscular Volume 92.8 fl (82-101); Mean Platelet Volume 9.2 fL (7.4-10.4); Monocytes # 0.6 10^3/uL (0.2-0.9); Monocytes % 6.8 %; Neutrophils # 6.04 10^3/uL (1.8-7.7); Neutrophils % 71.8 %; Nucleated Red Blood Cells % 0 %; Platelet Count 154 10^3/cmm (157-399); Red Blood Count 4.45 10^6/uL (3.85-5.65); Red Cell Distribution Width 13.2 % (12.1-15.1)
--- NOTE | 2023-07-30 14:04 | ED_ITS ---
HPI - Neuro Symptoms/Deficit 2 General: Chief Complaint: Neuro Symptoms/Deficit Stated Complaint: NEURO Time Seen by Provider: 07/30/23 12:58 Source: patient Mode of arrival: ambulatory Limitations: no limitations History of Present Illness: 82-year-old male who family seen this mo rning 1130 and he is having some slurred speech along with right-sided facial droop. His last known normal was last night at 10 PM since his symptoms have resolved he is currently speaking clearly he has no complaints he is ANO x 4 he is able to ambulate. He denies headache. Associated symptoms: Deny chest pain, headache(s), nausea or vomiting Review of Systems 2 Const: Denies: fever(s), chills, body aches or change in appetite Eyes: Denies: blurry vision or eye discomfort ENMT: Denies: throat pain or dental pain Card: Denies: chest pain Resp: Denies: dyspnea GI: Denies: abdominal pain, nausea, vomiting or diarrhea Musc: Denies: neck pain or back pain Skin/Breast: Denies: rash Neuro: Reports: Slurred speech present; Denies: headache(s) PFSH ED 2 PFSH: Medical History Depression Chronic kidney disease Hyperlipidemia Atrial fibrillation Urgency incontinence Benign prostatic hyperplasia with lower urinary tract symptoms Urolithiasis Carotid bruit Syncope Diabetes mellitus Hypertension CHF (congestive heart failure) CAD (coronary artery disease) This patient had a coronary bypass surgery in 2008 along with a mitral valve repair and a maze procedure, at the [facility] in [place]. Surgical History History of tonsillectomy and adenoidectomy History of loop recorder placed late 2020 or early 2021 H/O carpal tunnel repair bilateral S/P trigger finger release History of maze procedure History of mitral valve replacement with bioprosthetic valve S/P ureteral stent placement Hx of CABG Family History Mother , AT AGE 86 No problems noted. Father , AT AGE 65 Stroke Other Hyperlipidemia Hypertension Social History Smoking and tobacco/nicotine status: former use of tobacco/nicotine Alcohol intake: never Substance/Drug Use: never Lives independently: Yes Marital status: / Current occupational status: retired NIH stroke score 2 NIHSS: Level Of Consciousness - 1a: 0 Level Of Consciousness Questions - 1b: Both Correct Level Of Consciousness Commands - 1c: Both Correct Best Gaze - 2: Normal Visual Almodovar - 3: No Visual Loss Facial Palsy - 4: N ormal Motor Arm Right - 5: No Drift Motor Arm Left - 5: No Drift Motor Leg Right - 6: No Drift Motor Leg Left - 6: No Drift Limb Ataxia - 7: A bsent Sensory - 8: Normal Best Language - 9: No Aphasia Dysarthia - 10: Normal Extinction And Inattention - 11: 0 Score: Total Score: 0 Physical Exam 2 Const: COMMON NORMALS: no acute distress, patient oriented x3 and healthy appearing HENMT: COMMON NORMALS: normocephalic and atraumatic HEAD & SCALP: n ormocephalic and atraumatic Eye: COMMON NORMALS: Equal, round and reactive pupils present and EOMs intact bilaterally PUPIL: Yes Equal, round and reactive pupils present Neck/C-Spine: COMMON NORMALS: full ROM and supple Chest: COMMONS NORMALS: normal inspection of the chest Resp: COMMON NORMALS: normal respiratory effort, No retractions, No use of accessory muscles and clear to auscultation bilaterally AUSCULTATION: clear to auscultation bilaterally Cardio: COMMON NORMALS: regular rate, regular rhythm and No murmurs present (Cardio) RATE: regular rate RHYTHM: regular rhythm GI: COMMON NORMALS: Normal to inspection, nondistended, normoactive bowel sounds present, Soft to palpation, non-tender and no masses PALPATION: Yes Soft to palpation Extremity: COMMON NORMALS: normal to inspection and full ROM Neuro: COMMON NORMALS: patient oriented x3, moves all extremities and no focal motor deficits CRANIAL NERVES: Yes CN normal except as noted SPEECH: s peech normal GAIT: Yes Normal gait present MOTOR EXAM: 5/5 motor strength present throughout Psych: COMMON NORMALS: mental status grossly normal, Normal thought process present and cooperative THOUGHT PROCESS: Normal thought process present Skin: COMMON NORMALS: no rashes or lesions noted and no wounds GENERAL SKIN EXAM: no rashes or lesions noted Course 2 Vital Signs: Vital signs: Vital Signs Pulse Rate 79 05/23/24 13:03 Respiratory Rate 16 05/23/24 13:03 Blood Pressure 162/92 07/30/23 13:03 Pulse Oximetry 94 07/30/23 13:03 Oxygen Delivery Me thod Room Air 07/30/23 13:03 MDM - Neuro Symptoms/Deficit Medical Decision Making Patient presents here with symptoms consistent with a TIA his symptoms are completely resolved here he is not a TNK candidate as his last known normal was last night and his NIH is 0 currently no known history of stroke or TIA in the past will admit for observation at this time. Medical Records I reviewed the patient's medical records. Lab Data I reviewed the patient's lab results. 07/30/23 13:35 07/30/23 13:35 Radiology Impressions Chest X-Ray 07/30/23 13:03 Impression: Atherosclerosis and cardiomegaly. Head CT 07/30/23 13:03 IMPRESSION: 1. No acute intracranial hemorrhage or edema. 2. Mild atrophy and small vessel ischemic disease. Mild progression of chronic changes since 07/21/2023. Notified Le Rousseau MD at 07/30/2023 1:22 PM. Laboratory Results WBC 8.40 10^3/uL (3.29-11.43) 07/30/23 13:35 RBC 4.45 10^6/uL (3.85-5.65) 07/30/23 13:35 Hgb 14.20 g/dL (11.27-16.99) 07/30/23 13:35 Hct 41.3 % (37-53) 07/30/23 13:35 MCV 92.8 fl (82-101) 07/30/23 13:35 MCH 31.9 pg (27-33) 07/30/23 13:35 MCHC 34.4 g/dL (30-55) 07/30/23 13:35 RDW 13.2 % (12.1-15.1) 07/30/23 13:35 Plt Count 154 10^3/cmm (157-399) L 07/30/23 13:35 MPV 9.2 fL (7.4-10.4) 07/30/23 13:35 Neut % (Auto) 71.8 % 07/30/23 13:35 Lymph % (Auto) 18.2 % 07/30/23 13:35 Amador % (Auto) 6.8 % 07/30/23 13:35 Eos % (Auto) 2.3 % 07/30/23 13:35 Baso % (Auto) 0.5 % 07/30/23 13:35 Neut # (Auto) 6.04 10^3/uL (1.8-7.7) 07/30/23 13:35 Lymph # (Auto) 1.5 10^3/uL (0.8-4.8) 07/30/23 13:35 Amador # (Auto) 0.6 10^3/uL (0.2-0.9) 07/30/23 13:35 Eos # (Auto) 0.2 10^3/uL (0.0-0.8) 07/30/23 13:35 Baso # (Auto) 0.0 10^3/uL (0.0-0.1) 07/30/23 13:35 Nucleated RBC % (auto) 0 % 07/30/23 13:35 Nucleated RBCs # 0.0 /100WBC 07/30/23 13:35 PT 15.60 SECONDS (12.1-14.9) H 07/30/23 13:35 INR 1.20 (0.8-1.2) 07/30/23 13:35 APTT 39.4 SECONDS (23.9-36.7) H 07/30/23 13:35 Sodium 134 mmol/L (136-145) L 07/30/23 13:35 Potassium 4.2 mmol/L (3.5-5.1) 07/30/23 13:35 Chloride 100 mmol/L (98-107) 07/30/23 13:35 Carbon Dioxide 27 mmol/L (22-29) 07/30/23 13:35 Anion Gap 11.2 (5-19) 07/30/23 13:35 BUN 29 mg/dL (8-23) H 07/30/23 13:35 Creatinine 1.3 mg/dL (0.7-1.2) H 07/30/23 13:35 GFR Calculation Not Reportable 07/30/23 13:35 Glucose 184 mg/dL (65-115) H 07/30/23 13:35 POC Glucose 192 mg/dL (70-110) H 07/30/23 13:05 Calculated Osmolality 289 mOsm/kg (285-295) 07/30/23 13:35 Calcium 8.7 mg/dL (8.5-10.5) 07/30/23 13:35 Total Bilirubin 0.6 mg/dL (0.15-1.2) 07/30/23 13:35 AST 15 U/L (0-40) 07/30/23 13:35 ALT 18 U/L (0-41) 07/30/23 13:35 Alkaline Phosphatase 93 U/L (40-130) 07/30/23 13:35 Total Protein 6.8 g/dL (6.6-8.7) 07/30/23 13:35 Albumin 3.8 g/dL (3.5-5.2) 07/30/23 13:35 Globulin 3.0 g/dL (1.3-4.6) 07/30/23 13:35 All radiology interpretation(s) finalized by discharge EKG Data EKG 1: I personally reviewed and interpreted this EKG as follows: EKG interpretation date: 07/30/23 EKG interpretation time: 13:21 Interpretation: nsr hr [address] or t wave abnormalities qrs 134 qtc 442 Discharge Plan Discharge Patient Disposition: Placed in Observation Clinical Impression: Transient cerebral ischemia Condition: Stable Prescriptions: No Action tamsulosin 0.4 mg capsule 0.4 mg PO BID Qty: 180 3RF memantine 5 mg tablet 5 mg PO BID duloxetine 20 mg capsule,delayed release(DR/EC) 40 mg PO DAILY Ozempic 0.25 mg or 0.5 mg (2 mg/3 mL) pen injector 0.5 mg SUBCUT Q7D Rx Instructions: on thu (DME) diabetic shoes with 3 inserts See Rx Instructions .Route .MEDSUPPLY Qty: 1 0RF Rx Instructions: As directed to the shoe gulida atorvastatin 80 mg Tablet 80 mg PO QPM magnesium oxide [MagOx] 400 mg (241.3 mg magnesium) Tablet 400 mg PO BID calcium polycarbophil 625 mg Tablet 1,250 mg PO DAILY omeprazole 20 mg Tablet,Delayed Release (Dr/Ec) 20 mg PO BID cholecalciferol (vitamin D3) [Vitamin D3] 50 mcg (2,000 unit) tablet 2,000 unit PO QPM insulin aspart U-100 [Novolog FlexPen U-100 Insulin] 100 unit/mL (3 mL) insulin pen See Rx Instructions SUBCUT TID Rx Instructions: SLIDING SCALE SUBCUT THREE TIMES A DAY aspirin 81 mg Tablet,Delayed Release (Dr/Ec) 81 mg PO BEDTIME finasteride 5 mg Tablet 5 mg PO QPM buspirone 10 mg Tablet 5 mg PO TID vitamin B complex Tablet 2 tab PO QAM pyridoxine (vitamin B6) [Vitamin B-6] 100 mg Tablet 100 mg PO QAM furosemide 40 mg tablet 40 mg PO QAM PRN (Reason: Edema) acetaminophen 500 mg Tablet 500 mg PO QID PRN (Reason: Pain) carvedilol 3.125 mg Tablet 3.125 mg PO BID Rx Instructions: must administer with a meal/food potassium chloride 20 mEq tablet,ER particles/crystals 20 meq PO DAILY midodrine 10 mg tablet 10 mg PO TID PRN (Reason: LOW BLOOD) Sodium Fluoride 5000 Plus 1.1 % Cream 1 applic DENTAL DAILY Fish Oil 1,000 mg (120 mg-180 mg) Capsule 1 cap PO BID Eliquis 5 mg Tablet 2.5 mg PO BID Lantus U-100 Insulin 100 unit/mL Solution 15 unit SUBCUT BEDTIME Qty: 10 0RF albuterol sulfate 90 mcg/actuation HFA aerosol inhaler 2 inh INHALATION Q4H PRN (Reason: shortness of breath or wheezing) Qty: 6.7 1RF Referrals: Sam Fay DO [Primary Care Provider] - Coding Level of Care Code ED Finance Lecturer for Nathaniel Alicea
[2023-07-30 14:17] LABS: Alanine Aminotransferase 18 U/L (0-41); Albumin Level 3.8 g/dL (3.5-5.2); Alkaline Phosphatase 93 U/L (40-130); Anion Gap 11.2 (5-19); Aspartate Amino Transferase 15 U/L (0-40); Blood Urea Nitrogen 29 mg/dL (8-23); Calcium 8.7 mg/dL (8.5-10.5); Carbon Dioxide 27 mmol/L (22-29); Chloride 100 mmol/L (98-107); Creatinine Clr Calc Pharmacy 48.7716; Glucose 184 mg/dL (65-115); Osmolality Calculated 289 mOsm/kg (285-295); Potassium 4.2 mmol/L (3.5-5.1); Sodium 134 mmol/L (136-145); Total Bilirubin 0.6 mg/dL (0.15-1.2); Total Protein 6.8 g/dL (6.6-8.7)
[2023-07-30 14:35] LABS: Partial Thromboplastin Time 39.4 SECONDS (23.9-36.7)
[2023-07-30 15:47] LABS: Add Urine Microscopic? NO; Charge for UA Resulting for Rev
[2023-07-30 16:02] LABS: Bilirubin Urine Neg (Negative); Blood Urine Neg (Negative); Glucose Urine UA Norm (Normal); Ketones Urine Negative (Negative); Leukocyte Esterase Urine Negative (Negative); Nitrate Urine Negative (Negative); Protein Urine Neg (Negative); Urine Appearance Clear (CLEAR); Urine Color Yellow (Yellow); Urobilinogen Urine Norm (Negative); pH Urine 6.5 (5-7)
[2023-07-30] MEDS: aspirin 81 mg Chew Tablet 324 MG PO (16:11)
[2023-07-30 16:24] LABS: Amphetamines Screen Urine Negative (Negative); Barbiturates Screen Urine Negative (Negative); Benzodiazepines Screen Urine Negative (Negative); Cocaine Screen Urine Negative (Negative); Opiate Screen Urine Negative (Negative); PCP Screen Urine Negative (Negative); THC Screen Urine Negative (Negative)
--- NOTE | 2023-07-30 16:32 | USCV_ITS ---
Jose Armendariz Age: 82 Gender: M : 1940 Exam Date: 07/30/2023 19:29 Ordering Phys: Darcie Mckeon MD Technologist: SANG Exam Location: [facility] [place] Indication: TIA -- slurred speech, RIGHT facial droop. Hx CABG 2008. BP: 162 / 92 HR: 85 Rhythm: Mostly Atrial Fibrillation Technical Quality: Adequate MEASUREMENTS (Male / Female) Normal Values 2D ECHO LV Diastolic Diameter PLAX 4.7 cm 4.2 - 5.9 / 3.9 - 5.3 cm IVS Diastolic Thickness 1.7 cm 0.6 - 1.0 / 0.6 - 0.9 cm IVS Systolic Thickness 2.1 cm LVPW Diastolic Thickness 1.9 cm 0.6 - 1.0 / 0.6 - 0.9 cm LVPW Systolic Thickness 2.8 cm LVOT Diameter 2.4 cm LV Ejection Fraction 2D Teich 50.1 % LV Ejection Fraction MOD 2C 10.0 % LV Ejection Fraction 2C AL 11.3 % LA Diameter 5.8 cm Aorta at Sinotubular Diameter 3.4 cm IVC Diameter 1.5 cm M-MODE LA Ao Ratio MM 1.4 AV Cusp Separation MM 2.0 cm DOPPLER AV Peak Velocity 115.0 cm/s LVOT Peak Velocity 56.0 cm/s AV Area Cont Eq vti 3.6 cm squared AV Area Cont Eq pk 2.2 cm squared MV Peak Velocity 133.0 cm/s MV Area PHT 2.6 cm squared Mitral E to A Ratio 0.0 TR Peak Velocity 184.0 cm/s TR Peak Gradient 13.5 mmHg Right Atrial Pressure 10.0 mmHg Pulmonary Artery Systolic Pressu 23.5 mmHg PV Peak Velocity 67.0 cm/s FINDINGS Left Ventricle Left ventricle is normal in size. LV systolic function is normal with EF of 50 to 55%. Regional wall motion abnormalities can not be accurately assessed because of poor ultrasonic windows Right Ventricle Normal in size and function Right Atrium Normal in size Left Atrium Dilated Mitral Valve Mitral valve annuloplasty ring seen. Mild mitral regurgitation. Aortic Valve Structurally normal aortic valve. No significant stenosis or regurgitation. Tricuspid Valve Insufficient TR jet to evaluate RVSP. Pulmonic Valve Not well visualized Pericardium Normal Aorta Normal in size IVC Appears to be normal CONCLUSIONS LV systolic function is normal with EF of 50 to 55%. Left atrial dilation Mild mitral regurgitation Alexi Orona MD (Electronically Signed) Final Date: 31 Jul 2023 11:49 S
--- NOTE | 2023-07-30 16:40 | P.HP_ITS ---
Providers/Chief Complaint 2 Admitting Physician: Mike Primary Care Provider: Sam Fay DO Chief Complaint: NEURO History of Present Illness Jose Armendariz is a 82 year old male with medical history of atrial fibrillation, coronary disease, diabetes who presented with complaints of slurred speech and right-sided facial droop. His last known normal was 10 PM last night. Family reports that they saw him between 1030 and 1130 this morning. Subsequently his symptoms had resolved within a relatively short period on arrival to ER his symptoms had resolved. The patient does report that he has had an MRI in the past. Around 10 years ago he believes in [place]. He states that he also has history of bypass surgery greater than 30 years ago. He is on Eliquis, aspirin and a statin. In the ER he did have a CT of the head done. He is being admitted for further workup for suspected TIA He denies cough, fevers, diarrhea. He denies any recent change in medications or supplements. Review of Systems 2 General: Reports: 10 or more systems reviewed and unremarkable except in HPI and below Const: Denies: fever(s) or chills Card: Denies: chest pain or palpitations Resp: Denies: dyspnea or productive cough GI: Denies: abdominal pain or nausea Musc: Denies: neck pain or back pain Medications/Allergies Home Medications Medication Instructions Recorded Confirmed Last Taken Type atorvastatin 80 mg tablet 80 mg PO QPM 03/31/19 07/30/23 07/29/23 History calcium polycarbophil 625 mg tablet 1,250 mg PO DAILY 03/31/19 07/30/23 07/30/23 History magnesium oxide 400 mg (241.3 mg 400 mg PO BID 03/31/19 07/30/23 07/30/23 History magnesium) tablet (MagOx) omeprazole 20 mg tablet,delayed 20 mg PO BID 03/31/19 07/30/23 07/30/23 History release cholecalciferol (vitamin D3) 50 2,000 unit PO QPM 02/14/20 07/30/23 07/29/23 History mcg (2,000 unit) tablet (Vitamin D3) aspirin 81 mg tablet,delayed 81 mg PO BEDTIME 07/20/20 07/30/23 07/29/23 History release finasteride 5 mg tablet 5 mg PO QPM 07/20/20 07/30/23 07/29/23 History tamsulosin 0.4 mg capsule 0.4 mg PO BID #180 caps 09/27/20 07/30/23 07/30/23 Rx duloxetine 20 mg capsule,delayed 40 mg PO DAILY 09/05/22 07/30/23 07/30/23 History release memantine 5 mg tablet 5 mg PO BID 09/05/22 07/30/23 07/30/23 History semaglutide 0.25 mg or 0.5 mg (2 0.5 mg SUBCUT Q7D 09/05/22 07/30/23 07/24/23 History mg/3 mL) subcutaneous pen injector (Ozempic) albuterol sulfate 90 mcg/actuation 2 inh inhalation Q4H PRN shortness 04/04/23 07/30/23 Unknown Rx aerosol inhaler of breath or wheezing #6.7 grams buspirone 10 mg tablet 5 mg PO TID 04/14/23 07/30/23 07/30/23 History pyridoxine (vitamin B6) 100 mg 100 mg PO QAM 04/14/23 07/30/23 07/30/23 History tablet (Vitamin B-6) vitamin B complex 2 tab PO QAM 04/14/23 07/30/23 07/30/23 History diabetic shoes with 3 inserts #1 ea 05/29/23 07/30/23 Unknown Rx acetaminophen 500 mg tablet 500 mg PO QID PRN Pain 07/09/23 07/30/23 Unknown History apixaban 5 mg tablet (Eliquis) 2.5 mg PO BID 07/09/23 07/30/23 07/30/23 History carvedilol 3.125 mg tablet 3.125 mg PO BID 07/09/23 07/30/23 07/30/23 History fluoride (sodium) 1.1 % dental 1 applic dental DAILY 07/09/23 07/30/23 07/30/23 History cream (Sodium Fluoride 5000 Plus) furosemide 40 mg tablet 40 mg PO QAM PRN Edema 07/09/23 07/30/23 Unknown History midodrine 10 mg tablet 10 mg PO TID PRN LOW BLOOD 07/09/23 07/30/23 Unknown History omega 1-tja-yxi-fish oil 1,000 mg 1 cap PO BID 07/09/23 07/30/23 07/30/23 History (120 mg-180 mg) capsule (Fish Oil) potassium chloride 20 mEq 20 meq PO DAILY PRN with lasix 07/09/23 07/30/23 07/08/23 History tablet,extended release(part/cryst) insulin glargine 100 unit/mL 20 unit SUBCUT BEDTIME 07/30/23 07/30/23 07/29/23 History subcutaneous solution (Lantus U-100 Insulin) Allergies Allergy/AdvReac Type Severity Reaction Status Date / Time lisinopril Allergy ALGY-Rash Verified 07/13/23 16:46 PFSH Acute 2 PFSH: Medical History Depression Chronic kidney disease Hyperlipidemia Atrial fibrillation Urgency incontinence Benign prostatic hyperplasia with lower urinary tract symptoms Urolithiasis Carotid bruit Syncope Diabetes mellitus Hypertension CHF (congestive heart failure) CAD (coronary artery disease) This patient had a coronary bypass surgery in 2008 along with a mitral valve repair and a maze procedure, at the [facility] in [place]. Surgical History History of tonsillectomy and adenoidectomy History of loop recorder placed late 2020 or early 2021 H/O carpal tunnel repair bilateral S/P trigger finger release History of maze procedure History of mitral valve replacement with bioprosthetic valve S/P ureteral stent placement Hx of CABG Family History Mother , AT AGE 86 No problems noted. Father , AT AGE 65 Stroke Other Hyperlipidemia Hypertension Social History Smoking and tobacco/nicotine status: former use of tobacco/nicotine Alcohol intake: never Substance/Drug Use: never Lives independently: Yes Marital status: / Current occupational status: retired Vitals/I&O/Wt Last Vital Signs Pulse 79 07/30/23 13:03 Resp 16 07/30/23 13:03 BP 162/92 07/30/23 13:03 Pulse Ox 94 07/30/23 13:03 O2 Del Method Room Air 07/30/23 13:03 Weight last 48 hrs Weight 200 lb Physical Exam 2 Const: COMMON NORMALS: no acute distress, patient oriented x3 and no limitations Eye: COMMON NORMALS: EOMs intact bilaterally and conjunctivae normal Resp: COMMON NORMALS: normal respiratory effort and No retractions Cardio: COMMON NORMALS: regular rate and regular rhythm GI: COMMON NORMALS: Normal to inspection, nondistended, normoactive bowel sounds present and Soft to palpation Neuro: COMMON NORMALS: patient oriented x3, CN's II-XII intact bilaterally, moves all extremities, no focal motor deficits and no sensory deficits noted Data 07/30/23 13:35 07/30/23 13:35 A&P Assessment and plan (1) TIA (transient ischemic attack): (2) Hypertension: Qualifiers: Hypertension type: essential hypertension Qualified Code(s): I10 - Essential (primary) hypertension (3) CHF (congestive heart failure): Qualifiers: Heart failure type: diastolic Heart failure chronicity: chronic Qualified Code(s): I50.32 - Chronic diastolic (congestive) heart failure (4) History of mitral valve replacement with bioprosthetic valve: (5) CAD (coronary artery disease): Qualifiers: Coronary Disease-Associated Artery/Lesion type: bypass graft [place] vs. transplanted heart: ram[place] heart Associated angina: with other forms of angina Qualified Code(s): I25.708 - Atherosclerosis of coronary artery bypass graft(s), unspecified, with other forms of angina pectoris (6) Atrial fibrillation: Qualifiers: Atrial fibrillation type: paroxysmal Qualified Code(s): I48.0 - Paroxysmal atrial fibrillation (7) Diabetes mellitus: Plan TIA Admit the patient to medical. With telemetry. Will check an echocardiogram. CTA head and neck. Permissive hypertension. MRI brain. PT OT ST consultation. N.p.o. until swallow eval. Check a lipid profile as well as A1c. Currently on Eliquis. Will increase his statin dose as well as aspirin dose for now we will can consider to decrease that tomorrow. Formal neurology consultation pending clinical course. Chronic conditions including coronary disease, diabetes will be addressed. IDDM -- Check an A1c. Continue Lantus. Will place on sliding scale Afib CAD -- Resume home medications including Eliquis DVT prophylaxis: Eliquis GI prophylaxis: PPI Attestations 2 Medical Necessity Statement*: Jose Armendariz's hospital stay will require greater than 2 midnights for TIA Coding Level of Care Code 34796 Diagnoses TIA (transient ischemic attack) G45.9 Essential hypertension I10 Hypertension type: essential hypertension Chronic diastolic congestive heart failure I50.32 Heart failure type: diastolic Heart failure chronicity: chronic History of mitral valve replacement with bioprosthetic valve Z95.3 Coronary artery disease involving coronary bypass graft of [place] heart with other forms of angina pectoris I25.708 Coronary Disease-Associated Artery/Lesion type: bypass graft [place] vs. transplanted heart: [place] heart Associated angina: with other forms of angina Paroxysmal atrial fibrillation I48.0 Atrial fibrillation type: paroxysmal Diabetes mellitus E11.9
[2023-07-30] MEDS: memantine 5 mg tablet PO (19:07)
[2023-07-30] MEDS: carvedilol 3.125 mg Tablet PO (19:07)
[2023-07-30] MEDS: finasteride 5 mg Tablet PO (19:07)
[2023-07-30] MEDS: tamsulosin 0.4 mg Capsule 0.400000000000000022 MG PO (19:07)
[2023-07-30] MEDS: apixaban 5 mg Tablet 2.5 MG PO (19:07)
[2023-07-30] MEDS: insulin glargine 100 units/1 mL 20 UNIT SUBCUT (20:44)
[2023-07-30] MEDS: BuSPIRONE 10 mg Tablet 5 MG PO (20:44)
[2023-07-30 21:30] LABS: Estmated Average Glucose 143; Hemoglobin A1C 6.6 % (4.0-6.0)
[2023-07-31] VITALS: BP 150/72; PULSE 80; RESP 17; TEMP 36.4; O2SAT 95
[2023-07-31 04:00] VITALS: BP 158/98; PULSE 84; RESP 18; TEMP 36.4; O2SAT 99
[2023-07-31] MEDS: iohexol 350 mg/mL 500 mL Btl (per mL) IV (05:45)
[2023-07-31 06:00] VITALS: PULSE 68
--- NOTE | 2023-07-31 06:00 | CT_ITS ---
WS: [id number] CT ANGIOGRAM CEREBRAL AND CAROTID ARTERIES HISTORY: tia TECHNIQUE: CT angiogram is performed of the carotid and cerebral arteries. During arterial injection imaging is obtained from the skull vertex to the aortic arch in 1.25 mm imaging. Coronal and sagittal reformats are submitted. Additional multi planar reformats of the carotid and cerebral arteries are submitted, MIP imaging also reviewed. NASCET criteria utilized. [facility] CT [facility] e at least one of these dose optimization techniques: automated exposure control; mA and/or kV adjust ment per patient size (includes targeted exams where dose is matched to clinical indication); or iter ative reconstruction. CONTRAST: Omnipaque 350; 100 mL IV. DLP: 1227.92 mGy.cm COMPARISON: None available. Noncontrast CT head with no interval change since 07/30/2023. Mild atrophy and small vessel disease. S mall lacunar infarct insular ribbon on the LEFT. Carotid Angiogram: Right carotid: Common carotid artery: Normal arises from the innominate. Mild tortuosity of the innominate. There is very minimal narrowing of the origin. Scattered plaque throughout the common carotid artery. No sten osis. Increasing plaque at the bifurcation. Internal carotid artery: Moderate calcified plaque at the bifurcation and proximal ICA. There is fouzia tional minimal scattered plaque throughout the ICA. No high-grade obstruction or dissection. No signi ficant stenosis. Stenosis much less than 50%. External carotid artery: Patent. Left carotid: Common carotid artery: Mild tortuosity and mild plaque. Internal carotid artery: Small amount of plaque at the bifurcation with no high-grade stenosis. External carotid artery: Patent. Right vertebral artery: Unremarkable. Left vertebral artery: Mild stenosis and narrowing in the C5-6 foramen due to osteophytes from the ve rtebral body. No occlusions. Subclavian arteries: No stenosis or significant abnormality. Upper thorax: Chronic emphysema. Atherosclerosis thoracic aorta. Prior CABG. Thyroid gland: Small bilateral thyroid nodules. Osseous structures: cervical spondylosis. CEREBRAL ANGIOGRAM: Intracranial vertebral arteries: Normal with no significant atherosclerosis. Basilar artery: No significant stenosis or occlusion. No aneurysm. Intracranial Internal carotid arteries: Increasing plaque through the cavernous core portion of the c arotid arteries and supraclinoid. Stenosis 50 to 60% estimated. No occlusion. Middle cerebral arteries: Normal. Anterior cerebral arteries and ACOM: Slightly hypoplastic RIGHT A1 segment but it is patent. Posterior cerebral arteries and PCOM's: Normal. Dural venous sinuses are normally enhancing. Mastoid air cells: Normal. Paranasal sinuses: Mild RIGHT maxillary sinus disease. Calvarium: Normal. CT/CT angio headneck* [id number] IMPRESSION: 1. No significant cervical carotid stenosis. Atherosclerotic plaque at the cer vical carotid bifurcations but stenosis is much less than 50%. No dissection. 2. Increasing atherosclerotic calcified plaque in the cavernous carotid arteri es. Stenoses estimated near 50 to 60% bilaterally but slightly greater on the R IGHT. No occlusions. 3. No thrombus or occlusion within the [place]. No aneurysm.
[2023-07-31 06:36] LABS: Chol HDL Ratio 2.97 mg/dL (1.0-5.00); Cholesterol 95 mg/dL (0-200); Estmated Average Glucose 146; HDL Cholesterol 32 mg/dL (60-100); Hemoglobin A1C 6.7 % (4.0-6.0); LDL Cholesterol Calculated 42 mg/dL (50-129); LDL HDL Ratio 1.31 RATIO (0.00-3.22); Triglycerides 107 mg/dL (0-150)
[2023-07-31 07:48] VITALS: BP 126/67; PULSE 71; RESP 16; TEMP 36.6; O2SAT 92
[2023-07-31] MEDS: duloxetine 20 mg Capsule 40 MG PO (09:06)
[2023-07-31] MEDS: memantine 5 mg tablet PO (09:06)
[2023-07-31] MEDS: aspirin 325 mg Tablet PO (09:06)
[2023-07-31] MEDS: tamsulosin 0.4 mg Capsule 0.400000000000000022 MG PO (09:06)
[2023-07-31] MEDS: insulin lispro 100 unit/1 mL SUBCUT ×2 (09:07→11:30)
[2023-07-31] MEDS: pantoprazole DR 40 mg Tablet PO (09:07)
[2023-07-31] MEDS: carvedilol 3.125 mg Tablet PO (09:07)
[2023-07-31] MEDS: BuSPIRONE 10 mg Tablet 5 MG PO (09:07)
[2023-07-31] MEDS: apixaban 5 mg Tablet 2.5 MG PO (09:07)
[2023-07-31 09:20] VITALS: PULSE 81; RESP 18; O2SAT 94
--- NOTE | 2023-07-31 10:27 | P.DS_ITS ---
Discharge Providers Date of Admission: 07/30/23 17:30 Date of Discharge: July 31, 2023 Attending Provider at Admission: Darcie Mckeon MD Attending Provider at Discharge: Gerry Berry MD Primary Care Provider: Sam Fay DO Diagnoses at Discharge Discharge Diagnosis (1) TIA (transient ischemic attack): Status: Acute (2) Hypertension: Status: Chronic Qualifiers: Hypertension type: essential hypertension Qualified Code(s): I10 - Essential (primary) hypertension (3) CHF (congestive heart failure): Status: Chronic Qualifiers: Heart failure type: diastolic Heart failure chronicity: chronic Qualified Code(s): I50.32 - Chronic diastolic (congestive) heart failure (4) History of mitral valve replacement with bioprosthetic valve: Status: Chronic (5) CAD (coronary artery disease): Status: Chronic Qualifiers: Coronary Disease-Associated Artery/Lesion type: bypass graft [place] vs. transplanted heart: [place] Associated angina: with other forms of angina Qualified Code(s): I25.708 - Atherosclerosis of coronary artery bypass graft(s), unspecified, with other forms of angina pectoris Permanent problem details: This patient had a coronary bypass surgery in 2008 along with a mitral valve repair and a maze procedure, at the [facility] in [place]. (6) Atrial fibrillation: Status: Chronic Qualifiers: Atrial fibrillation type: paroxysmal Qualified Code(s): I48.0 - Paroxysmal atrial fibrillation (7) Diabetes mellitus: Status: Chronic Reason for Visit Reason for Visit: NEURO Hospital Course Hospital Course Patient was admitted to the hospital after having woke up yesterday morning with left facial droop. He had no weakness in his arms or legs. No difficulty with walking. He did have some mild slurred speech. It appears that this lasted for less than 2 hours and completely resolved. Family had brought him to the ER for evaluation for stroke. With the resolution of symptoms he did not receive any tPA therapy. He had an echocardiogram a couple months ago that showed no reason for clots. CTA done of his neck during his hospital stay showed 50 to 60% blockages but nothing significant enough to cause his TIA. He is on Eliquis 2.5 mg twice a day. I can find no reason for the lower dose at this time except possibly his age. He reported no history of bleeding issues in the past. He is also taking 81 mg aspirin for his coronary disease. Patient had an MRI scheduled but he does not feel like he is able to do it due to his claustrophobia. Patient was discharged home in stable condition. We will increase the Eliquis to 5 mg twice a day. Bleeding precautions was given. Recommending follow-up with his primary care next week. Physical Exam Narrative: Heart had regular rate and rhythm no murmurs rubs or gallops lungs were clear to auscultation equal breath sounds bilaterally. Neuro exam was unremarkable. Cranial nerves II to XII was grossly intact. Patient had normal strength and sensation in all extremities. No slurred speech. No vision issues. Discharge Data Studies Completed and Pending Completed Studies During Hospitalization Category Date Time Status CT angio headneck* [id number] Routine Cat Scan 07/31/23 06:[address] head thrombolytic [id number] Stat Cat Scan 07/30/23 13:03 Completed CXRP [XR chest 1V portable [id number]] Stat Exams 07/30/23 13:03 Completed Pending at discharge Category Date Time Status CV. echo complete* [id number] Routine Ultrasound 07/30/23 16:32 Taken Radiology Impressions Chest X-Ray 07/30/23 13:03 Impression: Atherosclerosis and cardiomegaly. Head CT 07/30/23 13:03 IMPRESSION: 1. No acute intracranial hemorrhage or edema. 2. Mild atrophy and small vessel ischemic disease. Mild progression of chronic changes since 07/21/2023. Notified Le Rousseau MD at 07/30/2023 1:22 PM. Head/Neck CTA 07/31/23 06:00 IMPRESSION: 1. No significant cervical carotid stenosis. Atherosclerotic plaque at the cervical carotid bifurcations but stenosis is much less than 50%. No dissection. 2. Increasing atherosclerotic calcified plaque in the cavernous carotid arter ies. Stenoses estimated near 50 to 60% bilaterally but slightly greater on the RIGHT. No occlusions. 3. No thrombus or occlusion within the [place]. No aneurysm. Laboratory Results WBC 8.40 10^3/uL (3.29-11.43) 07/30/23 13:35 RBC 4.45 10^6/uL (3.85-5.65) 07/30/23 13:35 Hgb 14.20 g/dL (11.27-16.99) 07/30/23 13:35 Hct 41.3 % (37-53) 07/30/23 13:35 MCV 92.8 fl (82-101) 07/30/23 13:35 MCH 31.9 pg (27-33) 07/30/23 13:35 MCHC 34.4 g/dL (30-55) 07/30/23 13:35 RDW 13.2 % (12.1-15.1) 07/30/23 13:35 Plt Count 154 10^3/cmm (157-399) L 07/30/23 13:35 MPV 9.2 fL (7.4-10.4) 07/30/23 13:35 Neut % (Auto) 71.8 % 07/30/23 13:35 Lymph % (Auto) 18.2 % 07/30/23 13:35 [place] % (Auto) 6.8 % 07/30/23 13:35 Eos % (Auto) 2.3 % 07/30/23 13:35 Baso % (Auto) 0.5 % 07/30/23 13:35 Neut # (Auto) 6.04 10^3/uL (1.8-7.7) 07/30/23 13:35 Lymph # (Auto) 1.5 10^3/uL (0.8-4.8) 07/30/23 13:35 [place] # (Auto) 0.6 10^3/uL (0.2-0.9) 07/30/23 13:35 Eos # (Auto) 0.2 10^3/uL (0.0-0.8) 07/30/23 13:35 Baso # (Auto) 0.0 10^3/uL (0.0-0.1) 07/30/23 13:35 Nucleated RBC % (auto) 0 % 07/30/23 13:35 Nucleated RBCs # 0.0 /100WBC 07/30/23 13:35 PT 15.60 SECONDS (12.1-14.9) H 07/30/23 13:35 INR 1.20 (0.8-1.2) 07/30/23 13:35 APTT 39.4 SECONDS (23.9-36.7) H 07/30/23 13:35 Sodium 134 mmol/L (136-145) L 07/30/23 13:35 Potassium 4.2 mmol/L (3.5-5.1) 07/30/23 13:35 Chloride 100 mmol/L (98-107) 07/30/23 13:35 Carbon Dioxide 27 mmol/L (22-29) 07/30/23 13:35 Anion Gap 11.2 (5-19) 07/30/23 13:35 BUN 29 mg/dL (8-23) H 07/30/23 13:35 Creatinine 1.3 mg/dL (0.7-1.2) H 07/30/23 13:35 GFR Calculation Not Reportable 07/30/23 13:35 Glucose 184 mg/dL (65-115) H 07/30/23 13:35 POC Glucose 192 mg/dL (70-110) H 07/30/23 13:05 Estimat Average Glucose 146 07/31/23 05:37 Hemoglobin A1c 6.7 % (4.0-6.0) H 07/31/23 05:37 Calculated Osmolality 289 mOsm/kg (285-295) 07/30/23 13:35 Calcium 8.7 mg/dL (8.5-10.5) 07/30/23 13:35 Total Bilirubin 0.6 mg/dL (0.15-1.2) 07/30/23 13:35 AST 15 U/L (0-40) 07/30/23 13:35 ALT 18 U/L (0-41) 07/30/23 13:35 Alkaline Phosphatase 93 U/L (40-130) 07/30/23 13:35 Total Protein 6.8 g/dL (6.6-8.7) 07/30/23 13:35 Albumin 3.8 g/dL (3.5-5.2) 07/30/23 13:35 Globulin 3.0 g/dL (1.3-4.6) 07/30/23 13:35 Triglycerides 107 mg/dL (0-150) 07/31/23 05:37 Cholesterol 95 mg/dL (0-200) 07/31/23 05:37 LDL Cholesterol, Calc 42 mg/dL (50-129) L 07/31/23 05:37 HDL Cholesterol 32 mg/dL (60-100) L 07/31/23 05:37 LDL/HDL Ratio 1.31 RATIO (0.00-3.22) 07/31/23 05:37 Cholesterol/HDL Ratio 2.97 mg/dL (1.0-5.00) 07/31/23 05:37 Urine Color Yellow (Yellow) 07/30/23 15:34 Urine Appearance Clear (CLEAR) 07/30/23 15:34 Urine pH 6.5 (5-7) 07/30/23 15:34 Ur Specific Institute 1.010 (1.005-1.030) 07/30/23 15:34 Urine Protein Neg (Negative) 07/30/23 15:34 Urine Glucose (UA) Norm (Normal) 07/30/23 15:34 Urine Ketones Negative (Negative) 07/30/23 15:34 Urine Blood Neg (Negative) 07/30/23 15:34 Urine Nitrate Negative (Negative) 07/30/23 15:34 Urine Bilirubin Neg (Negative) 07/30/23 15:34 Urine Urobilinogen Norm mg/dL (Negative) 07/30/23 15:34 Ur Leukocyte Esterase Negative (Negative) 07/30/23 15:34 Urine Opiates Screen Negative ng/mL (Negative) 07/30/23 15:34 Ur Barbiturates Screen Negative ng/mL (Negative) 07/30/23 15:34 Ur Phencyclidine Scrn Negative ng/mL (Negative) 07/30/23 15:34 Ur Amphetamines Screen Negative ng/mL (Negative) 07/30/23 15:34 U Benzodiazepines Scrn Negative ng/mL (Negative) 07/30/23 15:34 Urine Cocaine Screen Negative ng/mL (Negative) 07/30/23 15:34 U Marijuana (THC) Screen Negative ng/mL (Negative) 07/30/23 15:34 Vitals Last Vital Signs Temp 97.8 F 07/31/23 07:48 Pulse 81 07/31/23 09:20 Resp 18 07/31/23 09:20 BP 126/67 07/31/23 07:48 Pulse Ox 94 07/31/23 09:20 O2 Del Method Room Air 07/31/23 09:20 Discharge Plan Discharge Patient Disposition: Home Condition: Stable Prescriptions: Continued tamsulosin 0.4 mg capsule 0.4 mg PO BID Qty: 180 3RF memantine 5 mg tablet 5 mg PO BID duloxetine 20 mg capsule,delayed release(DR/EC) 40 mg PO DAILY Ozempic 0.25 mg or 0.5 mg (2 mg/3 mL) pen injector 0.5 mg SUBCUT Q7D Rx Instructions: ON THURSDAY (DME) diabetic shoes with 3 inserts See Rx Instructions .Route .MEDSUPPLY Qty: 1 0RF Rx Instructions: As directed to the shoe [place] atorvastatin 80 mg Tablet 80 mg PO QPM magnesium oxide [MagOx] 400 mg (241.3 mg magnesium) Tablet 400 mg PO BID calcium polycarbophil 625 mg Tablet 1,250 mg PO DAILY omeprazole 20 mg Tablet,Delayed Release (Dr/Ec) 20 mg PO BID cholecalciferol (vitamin D3) [Vitamin D3] 50 mcg (2,000 unit) tablet 2,000 unit PO QPM aspirin 81 mg Tablet,Delayed Release (Dr/Ec) 81 mg PO BEDTIME finasteride 5 mg Tablet 5 mg PO QPM buspirone 10 mg Tablet 5 mg PO TID vitamin B complex Tablet 2 tab PO QAM pyridoxine (vitamin B6) [Vitamin B-6] 100 mg Tablet 100 mg PO QAM furosemide 40 mg tablet 40 mg PO QAM PRN (Reason: Edema) acetaminophen 500 mg Tablet 500 mg PO QID PRN (Reason: Pain) carvedilol 3.125 mg Tablet 3.125 mg PO BID Rx Instructions: must administer with a meal/food potassium chloride 20 mEq tablet,ER particles/crystals 20 meq PO DAILY PRN (Reason: with lasix) midodrine 10 mg tablet 10 mg PO TID PRN (Reason: LOW BLOOD) fluoride (sodium) [Sodium Fluoride 5000 Plus] 1.1 % Cream 1 applic DENTAL DAILY omega 6-ioy-fzw-fish oil [Fish Oil] 1,000 mg (120 mg-180 mg) Capsule 1 cap PO BID albuterol sulfate 90 mcg/actuation HFA aerosol inhaler 2 inh INHALATION Q4H PRN (Reason: shortness of breath or wheezing) Qty: 6.7 1RF Lantus U-100 Insulin 100 unit/mL solution 20 unit SUBCUT BEDTIME Changed Eliquis 5 mg Tablet 5 mg PO BID Qty: 60 3RF Discharge Orders: Discharge Order (Routine); Ordered 07/31/23 Ordered By: Gerry Berry Referrals: Sam Fay DO [Primary Care Provider] - Discharge Diet: Usual diet Discharge Activity: Resume usual activity Patient Instructions: Opioid Safety Activity Restrictions/Additional Instructions: It appears that she had a transient ischemic attack and not a stroke at this time. Most likely from the atrial fibrillation. The only medication change we are making at this time is increasing the Eliquis to 5 mg twice a day. If you have any issues with bleeding or dark black tarry stools stop this medicine and contact your doctor soon as possible. Please follow-up with your primary care provider Dr. Fay sometime next week. Return to the ER if you have any further strokelike symptoms. Discharge Attestations Time Spent in Discharge Care*: greater than 30 min Quality Metrics Clinical Quality Measures [ No reported AMI, CVA or VTE this stay] Coding Level of Care Code Acute Code for Chg Fwd Diagnoses TIA (transient ischemic attack) G45.9 Essential hypertension I10 Hypertension type: essential hypertension Chronic diastolic congestive heart failure I50.32 Heart failure type: diastolic Heart failure chronicity: chronic History of mitral valve replacement with bioprosthetic valve Z95.3 Coronary artery disease involving coronary bypass graft of [place] with other forms of angina pectoris I25.708 Coronary Disease-Associated Artery/Lesion type: bypass graft [place] vs. transplanted heart: [place] heart Associated angina: with other forms of angina Paroxysmal atrial fibrillation I48.0 Atrial fibrillation type: paroxysmal Diabetes mellitus E11.9
[2023-07-31 13:02] VITALS: PULSE 81; RESP 18; O2SAT 94
== END 2023-07-31 13:02 | disposition home or self-care (01) | DRG 69 ==
LOC: ER 16:50 → MEDSURG 17:30
PROVIDERS: Admitting Provider Internal Medicine; Emergency Provider Emergency Medicine; PCP Emergency Medicine Emergency Medical Services; Visit Provider Family Medicine
DX: G45.9 Transient cerebral ischemic attack, unspecified (principal); I13.0 Hypertensive heart and chronic kidney disease with heart failure and stage 1 through stage 4 chronic kidney disease, or unspecified chronic kidney disease; I50.32 Chronic diastolic (congestive) heart failure; I48.20 Chronic atrial fibrillation, unspecified; N18.9 Chronic kidney disease, unspecified; I25.10 Atherosclerotic heart disease of native coronary artery without angina pectoris; Z95.1 Presence of aortocoronary bypass graft; Z79.01 Long term (current) use of anticoagulants; E11.22 Type 2 diabetes mellitus with diabetic chronic kidney disease; Z79.82 Long term (current) use of aspirin; Z87.891 Personal history of nicotine dependence; Z79.4 Long term (current) use of insulin; Z79.85 Long-term (current) use of injectable non-insulin antidiabetic drugs; Z95.2 Presence of prosthetic heart valve; F32.A Depression, unspecified; N40.1 Benign prostatic hyperplasia with lower urinary tract symptoms; E78.5 Hyperlipidemia, unspecified
CPT/HCPCS: 36415; 36416; 70450; 70496; 70498; 71045; 80053; 80061; 80306; 81003; 82962; 83036; 85025; 85610; 85730; 92523; 92610; 93005; 93306; 96372; 97166; 99285; J1815; Q9967

== ENCOUNTER 2023-09-11 12:49 | Emergency (ER) | payer OTHER, MEDICARE, SELFPAY ==
[2023-09-11 12:57] VITALS: BP 116/81; PULSE 86; RESP 18; TEMP 36.4; O2SAT 96; BMI 29.5
[2023-09-11 13:02] VITALS: BP 116/81; PULSE 85; O2SAT 95
--- NOTE | 2023-09-11 13:16 | CTR_ITS ---
PROCEDURE INFORMATION: Exam: CT Head Without Contrast Exam date and time: 09/11/2023 1:46 PM Age: 82 years old Clinical indication: Injury or trauma; Fall; Blunt trauma (contusions or hematomas); Without loss of consciousness; Additional info: Fall/ams TECHNIQUE: Imaging protocol: Computed tomography of the head without contrast. Radiation optimization: All CT scans at this facility use at least one of these dose optimization techniques: automated exposure control; mA and/or kV adjustment per patient size (includes targeted exams where dose is matched to clinical indication); or iterative reconstruction. COMPARISON: CT angio headneck* [id number] 07/31/2023 5:46 AM RADIATION DOSE METRICS: Total DLP (mGy-cm): 1186.3 FINDINGS: Brain: No intracranial hemorrhage. There is global parenchymal volume loss. Periventricular white matter hypoattenuation is nonspecific but most likely due to small vessel disease. No evidence of acute territorial infarct or cerebral edema. No mass effect or midline shift. Cerebral ventricles: Prominent ventricles likely secondary to volume loss. Paranasal sinuses: Visualized sinuses are unremarkable. No fluid levels. Mastoid air cells: Visualized mastoid air cells are well aerated. Bones: Unremarkable. No acute fracture. Soft tissues: Unremarkable. CT/CT head wo con* [id number] IMPRESSION: No acute intracranial findings.
--- NOTE | 2023-09-11 13:16 | XRR_ITS ---
PROCEDURE INFORMATION: Exam: XR Chest Exam date and time: 09/11/2023 1:55 PM Age: 82 years old Clinical indication: Other: AMS TECHNIQUE: Imaging protocol: Radiologic exam of the chest. Views: 1 view. COMPARISON: CR XR chest 1V portable [id number] 07/30/2023 1:15 PM FINDINGS: Tubes, catheters and devices: Loop recorder device in the left hemithorax. Airway: Patent Lungs: Mild bronchovascular crowding without acute consolidations. Pleural spaces: Unremarkable. No pleural effusion. No pneumothorax. Heart/Mediastinum: Moderate cardiomegaly . Bones/joints: Evidence of prior CABG (sternotomy and mediastinal surgical clips). No acute fracture. XR/XR chest 1V portable [id number] IMPRESSION: No acute findings.
--- NOTE | 2023-09-11 13:16 | CTR_ITS ---
PROCEDURE INFORMATION: Exam: CT Cervical Spine Without Contrast Exam date and time: 09/11/2023 1:46 PM Age: 82 years old Clinical indication: Injury or trauma; Fall; Blunt trauma TECHNIQUE: Imaging protocol: Computed tomography of the cervical spine without contrast. Radiation optimization: All CT scans at this facility use at least one of these dose optimization techniques: automated exposure control; mA and/or kV adjustment per patient size (includes targeted exams where dose is matched to clinical indication); or iterative reconstruction. COMPARISON: CT angio headneck* [id number] 07/31/2023 5:46 AM RADIATION DOSE METRICS: Total DLP (mGy-cm): 708 FINDINGS: Bones: Alignment is normal. No fracture. Diffuse degenerative disc disease and facet arthropathy. There is canal stenosis at C4-C5 and C5-C6. Lungs: Lung apices are normal. Soft tissues: Unremarkable. CT/CT cervical spin wo con* [id number] IMPRESSION: No acute findings.
--- NOTE | 2023-09-11 13:16 | XRR_ITS ---
PROCEDURE INFORMATION: Exam: XR Lumbosacral Spine Exam date and time: 09/11/2023 1:51 PM Age: 82 years old Clinical indication: Injury or trauma; Fall; Blunt trauma (contusions or hematomas); Patient HX: AMS TECHNIQUE: Imaging protocol: Radiologic exam of the lumbosacral spine. Views: 2 or 3 views. COMPARISON: CR XR hip RT 2-3V wo/w pel* [id number] 04/15/2023 2:19 PM FINDINGS: Bones/joints: Moderate to severe lumbar spondylosis, worse at L2-L3 and L3-L4. Moderate to severe decreased disc space, worse at L2-L3, L3-L4, L4-L5, and L5-S1. Severe facet joint hypertrophy. Spinal canal patent. No acute fracture/dislocation. Soft tissues: Unremarkable. Gastrointestinal tract: Moderate constipation with large amount of fecal material in the rectum. Vasculature: Severe aortic atherosclerosis. XR/XR lumbar spine 2-3V* [id number] IMPRESSION: No acute findings.
--- NOTE | 2023-09-11 13:17 | ED_ITS ---
HPI - Altered Mental Status 2 General: Chief Complaint: Altered Mental Status Stated Complaint: ams Time Seen by Provider: 09/11/23 13:07 Source: patient Mode of arrival: EMS Limitations: no limitations History of Present Illness: Patient is a nice 82-year-old male presents to ED today via EMS for evaluation of altered mental status and a fall yesterday evening. Patient states his becqdral-ba-pei felt like his mentation was altered this morning although he cannot elaborate on why. He is alert and oriented upon arrival and answering all of my questions appropriately. He states yesterday evening he was bending over to pick something up off the ground and toppled over. He does report striking his head although denies LOC. He is on anticoagulation. He states since he has had a small amount of a headache as well as some neck pain and lower back pain. He chronically has lower back pain. Patient was recently admitted to the hospital for concerns of a TIA. While inpatient he had an extensive workup regarding this including CTA/echo which were normal. Called son as no family arrived for patient. He states this morning he was concerned that his father had possibly had a stroke as he had complained of a headache and was reportedly leaning to the right in addition to the fall the patient himself was telling me about. He also reported that patient had been behaving strangely stating that the son would ask him a question and his response did not seem to correlate with the question being answered. Again upon arrival here, patient answers all of my questions appropriately. complaint: altered mental status and other (fall) Associated symptoms: Reports no associated symptoms Review of Systems 2 Const: Denies: fever(s), chills, body aches, fatigue or malaise Eyes: Denies: change in vision, blurry vision, photophobia, floaters or seeing flashes Card: Denies: chest pain, palpitations, irregular heart rhythm, edema, swelling of feet/ankles, lightheadedness, syncope, pre-syncope, dyspnea on exertion, orthopnea, leg pain with exertion or acrocyanosis Resp: Denies: dyspnea, productive cough, non-productive cough, wheezing, hemoptysis or chest congestion GI: Denies: nausea or vomiting Musc: Reports: neck pain and back pain; Denies: extremity pain, extremity swelling, joint pain or joint swelling Skin/Breast: Denies: rash Neuro: Reports: headache(s); Denies: numbness in extremities, weakness in extremities, sensory changes, difficulty walking, frequent falls, dizziness, Slurred speech present, difficulty communicating thoughts or seizure-like activity PFSH ED 2 PFSH: Medical History Depression Chronic kidney disease Hyperlipidemia Atrial fibrillation Urgency incontinence Benign prostatic hyperplasia with lower urinary tract symptoms Urolithiasis Carotid bruit Syncope Diabetes mellitus Hypertension CHF (congestive heart failure) CAD (coronary artery disease) This patient had a coronary bypass surgery in 2008 along with a mitral valve repair and a maze procedure, at the [facility] in [place]. Surgical History History of tonsillectomy and adenoidectomy History of loop recorder placed late 2020 or early 2021 H/O carpal tunnel repair bilateral S/P trigger finger release History of maze procedure History of mitral valve replacement with bioprosthetic valve S/P ureteral stent placement Hx of CABG Family History Mother , AT AGE 86 No problems noted. Father , AT AGE 65 Stroke Other Hyperlipidemia Hypertension Social History Smoking and tobacco/nicotine status: former use of tobacco/nicotine Alcohol intake: never Substance/Drug Use: never Lives independently: Yes Marital status: / Current occupational status: retired Physical Exam 2 Const: COMMON NORMALS: no acute distress, average body habitus, patient oriented x3, no limitations, healthy appearing, alert and well nourished G ENERAL APPEARANCE: cooperative ORIENTATION/CONSCIOUSNESS: Yes awake, Yes oriented to person, Yes oriented to place and Yes oriented to time HENMT: COMMON NORMALS: normocephalic and atraumatic HEAD & SCALP: normal to inspection, normocephalic and atraumatic Eye: COMMON NORMALS: Equal, round and reactive pupils present and EOMs intact bilaterally GENERAL EYE: appearance normal, both eyes and all related structures and normal light reflex PUPIL: Yes Equal, round and reactive pupils present DIRECT OPHTHALMOSCOPY: Yes normal light reflex Neck/C-Spine: COMMON NORMALS: full ROM, no lymphadenopathy, supple and no meningeal signs CERVICAL SPINE: Yes cervical ROM normal, No pain with cervical ROM and No Cervical spine tenderness Chest: COMMONS NORMALS: normal inspection of the chest Resp: COMMON NORMALS: normal respiratory effort and clear to auscultation bilaterally AUSCULTATION: clear to auscultation bilaterally Cardio: COMMON NORMALS: regular rate RATE: regular rate RHYTHM: abnormal rhythm irregularly irregular GI: COMMON NORMALS: Normal to inspection, nondistended, normoactive bowel sounds present, Soft to palpation, non-tender, No hepatosplenomegaly present and no masses PALPATION: Yes Soft to palpation and Yes No hepatosplenomegaly present : COMMON NORMALS: Yes no CVA tenderness BLADDER/KIDNEY EXAM: Yes no CVA tenderness Back/Pelvis: COMMON NORMALS: no CVA tenderness and thoracic and lumbar spine normal to inspection Extremity: COMMON NORMALS: normal to inspection GENERAL: Yes normal exam except as noted Neuro: LANDY COMA SCALE: document GCS findings Landy coma scale eye opening: Spontaneous [place] coma scale verbal response: Orientated [place] coma scale motor response: Obey commands [place] coma scale total score: 15 COMMON NORMALS: patient oriented x3, CN's II-XII intact bilaterally, moves all extremities, no focal motor deficits and no sensory deficits noted S ENSORIUM/ORIENTATION: Yes alert, Yes oriented to person, Yes oriented to place and Yes oriented to time MENINGEAL SIGNS: Yes no meningeal signs C OORDINATION/BALANCE: [id number]-lyif test normal SPEECH: speech normal M OTOR EXAM: 5/5 motor strength present throughout COORDINATION: [id number]-um-sygs test normal OTHER: NIH 0 Skin: COMMON NORMALS: no rashes or lesions noted GENERAL SKIN EXAM: no rashes or lesions noted TRAUMA: no lacerations or abrasions Course 2 ED course: Patient was ambulatory here in the emergency department several times without any difficulty or assistance. No issues with gait or balance. Vital Signs: Vital signs: Vital Signs Temperature 97.6 F 09/11/23 12:57 Pulse Rate 86 09/11/23 12:57 Respiratory Rate 18 09/11/23 12:57 Blood Pressure 116/81 09/11/23 12:57 Pulse Oximetry 96 09/11/23 12:57 Oxygen Delivery Me thod Room Air 09/11/23 12:57 MDM - Altered Mental Status Medical Decision Making Patient is an 82-year-old male here in the emergency department at the request of his family as they were concerned for possible altered mental status. Patient did have a fall yesterday after bending over stating I just toppled over . CT scans of his head and cervical spine are unremarkable. XR of his lumbar spine is unremarkable. After speaking to son he felt like patient was leaning to the right felt like his question answering this morning was abnormal. Patient here is alert and oriented and answering all questions appropriately. His NIHSS is 0. Blood work here overall is nonactionable. His BUNs/Cr appears at baseline. His initial troponin is at baseline with no significant change to his 2-hour. UA is noninfected. CXR is unremarkable. EKGs are essentially unremarkable. On repeat EKG he did have one small area of a possible pause. They have seen this previously on pacemaker checks. Discussed with Dr. Rousseau who did not feel there was anything emergent that needed to be done at this time. Ultimately patient is stable for discharge back home with recommendation to follow-up with his primary care provider next week. Return ED precautions given. Medical Records I reviewed the patient's medical records. Lab Data I reviewed the patient's lab results. 09/11/23 13:34 09/11/23 13:34 Radiology Impressions Cervical Spine CT 09/11/23 13:16 IMPRESSION: No acute findings. Chest X-Ray 09/11/23 13:16 IMPRESSION: No acute findings. Head CT 09/11/23 13:16 IMPRESSION: No acute intracranial findings. Lumbar Spine X-Ray 09/11/23 13:16 IMPRESSION: No acute findings. Laboratory Results WBC 7.60 10^3/uL (3.29-11.43) 09/11/23 13:34 RBC 4.45 10^6/uL (3.85-5.65) 09/11/23 13:34 Hgb 14.20 g/dL (11.27-16.99) 09/11/23 13:34 Hct 42.3 % (37-53) 09/11/23 13:34 MCV 95.1 fl (82-101) 09/11/23 13:34 MCH 31.9 pg (27-33) 09/11/23 13:34 MCHC 33.6 g/dL (30-55) 09/11/23 13:34 RDW 13.6 % (12.1-15.1) 09/11/23 13:34 Plt Count 148 10^3/cmm (157-399) L 09/11/23 13:34 MPV 9.4 fL (7.4-10.4) 09/11/23 13:34 Neut % (Auto) 69.6 % 09/11/23 13:34 Lymph % (Auto) 20.5 % 09/11/23 13:34 [place] % (Auto) 7.1 % 09/11/23 13:34 Eos % (Auto) 1.7 % 09/11/23 13:34 Baso % (Auto) 0.7 % 09/11/23 13:34 Neut # (Auto) 5.29 10^3/uL (1.8-7.7) 09/11/23 13:34 Lymph # (Auto) 1.6 10^3/uL (0.8-4.8) 09/11/23 13:34 [place] # (Auto) 0.5 10^3/uL (0.2-0.9) 09/11/23 13:34 Eos # (Auto) 0.1 10^3/uL (0.0-0.8) 09/11/23 13:34 Baso # (Auto) 0.1 10^3/uL (0.0-0.1) 09/11/23 13:34 Nucleated RBC % (auto) 0 % 09/11/23 13:34 Nucleated RBCs # 0.0 /100WBC 09/11/23 13:34 Sodium 132 mmol/L (136-145) L 09/11/23 13:34 Potassium 4.4 mmol/L (3.5-5.1) 09/11/23 13:34 Chloride 99 mmol/L (98-107) 09/11/23 13:34 Carbon Dioxide 21 mmol/L (22-29) L 09/11/23 13:34 Anion Gap 16.4 (5-19) 09/11/23 13:34 BUN 33 mg/dL (8-23) H 09/11/23 13:34 Creatinine 1.4 mg/dL (0.7-1.2) H 09/11/23 13:34 GFR Calculation Not Reportable 09/11/23 13:34 Glucose 217 mg/dL (65-115) H 09/11/23 13:34 Calculated Osmolality 288 mOsm/kg (285-295) 09/11/23 13:34 Calcium 9.0 mg/dL (8.5-10.5) 09/11/23 13:34 Total Bilirubin 0.8 mg/dL (0.15-1.2) 09/11/23 13:34 AST 25 U/L (0-40) 09/11/23 13:34 ALT 18 U/L (0-41) 09/11/23 13:34 Alkaline Phosphatase 82 U/L (40-130) 09/11/23 13:34 Troponin T Baseline 34 ng/L (0-15) H 09/11/23 13:34 Troponin T 120 Minute 34.69 ng/L (0-15) H 09/11/23 15:30 Delta Troponin T 0.69 ABS# (0-10) 09/11/23 15:30 Total Protein 6.4 g/dL (6.6-8.7) L 09/11/23 13:34 Albumin 3.6 g/dL (3.5-5.2) 09/11/23 13:34 Globulin 2.8 g/dL (1.3-4.6) 09/11/23 13:34 Urine Color Yellow (Yellow) 09/11/23 16:30 Urine Appearance Clear (CLEAR) 09/11/23 16:30 Urine pH 5 (5-7) 09/11/23 16:30 Ur Specific [place] 1.010 (1.005-1.030) 09/11/23 16:30 Urine Protein Neg (Negative) 09/11/23 16:30 Urine Glucose (UA) Trace (Normal) H 09/11/23 16:30 Urine Ketones Negative (Negative) 09/11/23 16:30 Urine Blood Neg (Negative) 09/11/23 16:30 Urine Nitrate Negative (Negative) 09/11/23 16:30 Urine Bilirubin Neg (Negative) 09/11/23 16:30 Urine Urobilinogen Norm mg/dL (Negative) 09/11/23 16:30 Ur Leukocyte Esterase Negative (Negative) 09/11/23 16:30 All radiology interpretation(s) finalized by discharge Discharge Plan Discharge Patient Disposition: Home Clinical Impression: Fall Qualifiers: Encounter type: initial encounter Qualified Code(s): W19.XXXA - Unspecified fall, initial encounter Condition: Stable Prescriptions: No Action tamsulosin 0.4 mg capsule 0.4 mg PO BID Qty: 180 3RF memantine 5 mg tablet 5 mg PO BID duloxetine 20 mg capsule,delayed release(DR/EC) 40 mg PO DAILY Ozempic 0.25 mg or 0.5 mg (2 mg/3 mL) pen injector 0.5 mg SUBCUT Q7D Rx Instructions: ON THURSDAY (DME) diabetic shoes with 3 inserts See Rx Instructions .Route .MEDSUPPLY Qty: 1 0RF Rx Instructions: As directed to the shoe chilo Eliquis 5 mg tablet See Rx Instructions .ROUTE .COMPLEX Qty: 90 3RF Dose Instruction: TAKE ONE-HALF TABLET BY MOUTH TWICE A DAY FOR ATRIAL FIBRILLATION. THIS TABLET IS TO BE CUT IN HALF FOR YOUR DOSE Rx Instructions: TAKE ONE-HALF TABLET BY MOUTH TWICE A DAY FOR ATRIAL FIBRILLATION. THIS TABLET IS TO BE CUT IN HALF FOR YOUR DOSE atorvastatin 80 mg Tablet 80 mg PO QPM magnesium oxide [MagOx] 400 mg (241.3 mg magnesium) Tablet 400 mg PO BID calcium polycarbophil 625 mg Tablet 1,250 mg PO DAILY omeprazole 20 mg Tablet,Delayed Release (Dr/Ec) 20 mg PO BID cholecalciferol (vitamin D3) [Vitamin D3] 50 mcg (2,000 unit) tablet 2,000 unit PO QPM aspirin 81 mg Tablet,Delayed Release (Dr/Ec) 81 mg PO BEDTIME finasteride 5 mg Tablet 5 mg PO QPM buspirone 10 mg Tablet 5 mg PO TID vitamin B complex Tablet 2 tab PO QAM pyridoxine (vitamin B6) [Vitamin B-6] 100 mg Tablet 100 mg PO QAM furosemide 40 mg tablet 40 mg PO QAM PRN (Reason: Edema) acetaminophen 500 mg Tablet 500 mg PO QID PRN (Reason: Pain) carvedilol 3.125 mg Tablet 3.125 mg PO BID Rx Instructions: must administer with a meal/food potassium chloride 20 mEq tablet,ER particles/crystals 20 meq PO DAILY PRN (Reason: with lasix) midodrine 10 mg tablet 10 mg PO TID PRN (Reason: LOW BLOOD) fluoride (sodium) [Sodium Fluoride 5000 Plus] 1.1 % Cream 1 applic DENTAL DAILY omega 1-buo-acd-fish oil [Fish Oil] 1,000 mg (120 mg-180 mg) Capsule 1 cap PO BID albuterol sulfate 90 mcg/actuation HFA aerosol inhaler 2 inh INHALATION Q4H PRN (Reason: shortness of breath or wheezing) Qty: 6.7 1RF Lantus U-100 Insulin 100 unit/mL solution 20 unit SUBCUT BEDTIME Discharge Orders: Discharge ED (Routine); Ordered 09/11/23 Ordered By: Kika Spaulding Referrals: Sam Fay, DO [Emergency Department] - Activity Restrictions/Additional Instructions: Patient's workup here in the emergency department is unremarkable. His head CT is normal. At this time I do not have any concern for a CVA/TIA (stroke). I did not find any evidence for infection. Patient has been alert and oriented and appropriate here and has ambulated through the emergency department several times without difficulty or assistance. At this time I would recommend following up with primary care provider next week. Coding Level of Care Code ED Videographer for Nathaniel Alicea
[2023-09-11 13:40] LABS: Basophils # 0.1 10^3/uL (0.0-0.1); Basophils % 0.7 %; Eosinophils # 0.1 10^3/uL (0.0-0.8); Eosinophils % 1.7 %; Hematocrit 42.3 % (37-53); Lymphocytes # 1.6 10^3/uL (0.8-4.8); Lymphocytes % 20.5 %; Mean Corpuscular HGB Conc 33.6 g/dL (30-55); Mean Corpuscular Hemoglobin 31.9 pg (27-33); Mean Corpuscular Volume 95.1 fl (82-101); Mean Platelet Volume 9.4 fL (7.4-10.4); Monocytes # 0.5 10^3/uL (0.2-0.9); Monocytes % 7.1 %; Neutrophils # 5.29 10^3/uL (1.8-7.7); Neutrophils % 69.6 %; Nucleated Red Blood Cells % 0 %; Platelet Count 148 10^3/cmm (157-399); Red Blood Count 4.45 10^6/uL (3.85-5.65); Red Cell Distribution Width 13.6 % (12.1-15.1)
[2023-09-11 13:58] LABS: Troponin(5th) Baseline 34 ng/L (0-15)
[2023-09-11 14:02] VITALS: BP 173/87; PULSE 68; O2SAT 95
[2023-09-11 14:26] LABS: Alanine Aminotransferase 18 U/L (0-41); Albumin Level 3.6 g/dL (3.5-5.2); Alkaline Phosphatase 82 U/L (40-130); Blood Urea Nitrogen 33 mg/dL (8-23); Carbon Dioxide 21 mmol/L (22-29); Chloride 99 mmol/L (98-107); Creatinine Clr Calc Pharmacy 45.2879; Globulin 2.8 g/dL (1.3-4.6); Glucose 217 mg/dL (65-115); Osmolality Calculated 288 mOsm/kg (285-295); Sodium 132 mmol/L (136-145); Total Bilirubin 0.8 mg/dL (0.15-1.2); Total Protein 6.4 g/dL (6.6-8.7)
--- NOTE | 2023-09-11 14:29 | ECG_ITS ---
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 Measurements Intervals [place] Rate: 86 P: 104 TN: 226 QRS: 74 QRSD: 136 T: 0 QT: 383 QTc: 459 Interpretive Statements SINUS RHYTHM WITH FIRST DEGREE AV BLOCK WITH OCCASIONAL SUPRAVENTRICULAR PREMATURE COMPLEXES RIGHT BUNDLE BRANCH BLOCK [120+ ms QRS DURATION, UPRIGHT V1, 40+ ms S IN I/aVL/V4/V5/V6] Compared to ECG 07/30/2023 13:21:24 T-wave abnormality no longer present Possible ischemia no longer present Electronically Signed On 09-11-2023 18:39:54 CDT by Alexi Orona M.D. [id number]
[2023-09-11 14:30] LABS: Anion Gap 16.4 (5-19); Aspartate Amino Transferase 25 U/L (0-40); Potassium 4.4 mmol/L (3.5-5.1)
[2023-09-11 15:02] VITALS: PULSE 94; O2SAT 96
--- NOTE | 2023-09-11 15:27 | ECG_ITS ---
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 Measurements Intervals [place] Rate: 84 P: 93 OR: 218 QRS: 60 QRSD: 152 T: -19 QT: 409 QTc: 485 Interpretive Statements SINUS RHYTHM WITH FIRST DEGREE AV BLOCK WITH OCCASIONAL SUPRAVENTRICULAR PREMATURE COMPLEXES RIGHT BUNDLE BRANCH BLOCK [120+ ms QRS DURATION, UPRIGHT V1, 40+ ms S IN I/aVL/V4/V5/V6] Compared to ECG 09/11/2023 14:29:02 No significant changes Electronically Signed On 09-11-2023 18:47:56 CDT by Alexi Orona M.D. [id number]
[2023-09-11 16:02] VITALS: PULSE 80; O2SAT 95
[2023-09-11 16:02] LABS: Troponin 5 2HR 34.69 ng/L (0-15); Troponin 5 2HR Delta 0.69 ABS# (0-10)
[2023-09-11 16:39] LABS: Add Urine Microscopic? NO; Charge for UA Resulting for Rev
[2023-09-11 16:50] LABS: Bilirubin Urine Neg (Negative); Blood Urine Neg (Negative); Glucose Urine UA Trace (Normal); Ketones Urine Negative (Negative); Leukocyte Esterase Urine Negative (Negative); Nitrate Urine Negative (Negative); Protein Urine Neg (Negative); Urine Appearance Clear (CLEAR); Urine Color Yellow (Yellow); Urobilinogen Urine Norm (Negative); pH Urine 5 (5-7)
== END 2023-09-11 18:58 | disposition home or self-care (01) ==
PROVIDERS: Emergency Provider Physician Assistant
DX: R41.82 Altered mental status, unspecified (principal); I13.0 Hypertensive heart and chronic kidney disease with heart failure and stage 1 through stage 4 chronic kidney disease, or unspecified chronic kidney disease; N18.9 Chronic kidney disease, unspecified; I50.9 Heart failure, unspecified; I25.10 Atherosclerotic heart disease of native coronary artery without angina pectoris; E78.5 Hyperlipidemia, unspecified; Z79.899 Other long term (current) drug therapy; Z79.82 Long term (current) use of aspirin; Z79.01 Long term (current) use of anticoagulants; Z87.891 Personal history of nicotine dependence; Z95.1 Presence of aortocoronary bypass graft; Z95.4 Presence of other heart-valve replacement; W19.XXXA Unspecified fall, initial encounter
CPT/HCPCS: 36415; 70450; 71045; 72100; 72125; 80053; 81003; 84484; 85025; 93005; 99285

== ENCOUNTER 2023-10-04 07:02 | Emergency (ER) | payer OTHER, MEDICARE, SELFPAY ==
[2023-10-04] VITALS (8 sets, daily range): BP systolic 118–163; BP diastolic 63–98; PULSE 76–87; RESP 14–21; TEMP 36.8; O2SAT 91–96; BMI 28.7
--- NOTE | 2023-10-04 07:04 | XRR_ITS ---
PROCEDURE INFORMATION: Exam: XR Chest Exam date and time: 10/04/2023 7:13 AM Age: 83 years old Clinical indication: Injury or trauma; Fall; Blunt trauma (contusions or hematomas); Additional info: Syncope TECHNIQUE: Imaging protocol: Radiologic exam of the chest. Views: 1 view. COMPARISON: CR XR chest 1V portable [id number] 09/11/2023 1:55 PM FINDINGS: Tubes, catheters and devices: Sternotomy wires and left chest cardiac loop recorder re-identified Lungs: Lungs are clear Pleural spaces: Unremarkable. No pleural effusion. No pneumothorax. Heart/Mediastinum: Unremarkable. No cardiomegaly. Bones/joints: No suspicious osseous findings Other findings: Right hemidiaphragmatic eventration XR/XR chest 1V portable [id number] IMPRESSION: No acute cardiopulmonary process
--- NOTE | 2023-10-04 07:16 | CTR_ITS ---
PROCEDURE INFORMATION: Exam: CT Head Without Contrast Exam date and time: 10/04/2023 7:28 AM Age: 83 years old Clinical indication: Syncope and collapse TECHNIQUE: Imaging protocol: Computed tomography of the head without contrast. Radiation optimization: All CT scans at this facility use at least one of these dose optimization techniques: automated exposure control; mA and/or kV adjustment per patient size (includes targeted exams where dose is matched to clinical indication); or iterative reconstruction. COMPARISON: CT head wo con* [id number] 09/11/2023 1:46 PM RADIATION DOSE METRICS: Total DLP (mGy-cm): 1152.28 FINDINGS: Brain: Similar [id number]-[id number] periventricular and deep subcortical white matter hypodensities, compatible with age-appropriate chronic small vessel white matter ischemic changes. Age-appropriate global [id number]-yu-yrirqsqq cortical atrophy with associated ventricular prominence is unchanged. 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 Brain parenchyma and ventricles are otherwise unremarkable. No hemorrhage, acute infarct, mass, mass effect or extra-axial fluid collection. Cerebral ventricles: See Brain finding. Paranasal sinuses: Visualized paranasal sinuses are clear Mastoid air cells: Mastoid air cells are clear Auditory system: Small amount of left external auditory canal cerumen Bones: Calvarium intact Soft tissues: Unremarkable. CT/CT head wo con* [id number] IMPRESSION: 1. No acute intracranial process 2. Chronic/senescent changes as above
--- NOTE | 2023-10-04 07:18 | W.ED.SYNCOPE ---
HPI - Syncope General: Chief Complaint: Syncope Stated Complaint: syncope Time Seen by Provider: 10/04/23 07:04 Source: patient and EMS Mode of arrival: EMS Limitations: no limitations History of Present Illness: 83-year-old male states he got up to go to the bathroom this morning and had a syncopal event his family and found him on the ground in the bathroom he is unsure exactly what it happened. He had has no other complaints this time he denies any chest pain or headache before or after the event. Associated symptoms: Deny abdominal pain, chest pain, fever(s), headache(s) or nausea Review of Systems Const: Denies: fever(s), chills, body aches or change in appetite ENMT: Denies: throat pain or dental pain Card: Reports: syncope; Denies: chest pain Resp: Denies: dyspnea GI: Denies: abdominal pain, nausea, vomiting or diarrhea Musc: Denies: neck pain or back pain Skin/Breast: Denies: rash Neuro: Denies: headache(s) PFSH ED PFSH: Medical History Depression Chronic kidney disease Hyperlipidemia Atrial fibrillation Urgency incontinence Benign prostatic hyperplasia with lower urinary tract symptoms Urolithiasis Carotid bruit Syncope Diabetes mellitus Hypertension CHF (congestive heart failure) CAD (coronary artery disease) This patient had a coronary bypass surgery in 2008 along with a mitral valve repair and a maze procedure, at the [facility] in [place]. Surgical History History of tonsillectomy and adenoidectomy History of loop recorder placed late 2020 or early 2021 H/O carpal tunnel repair bilateral S/P trigger finger release History of maze procedure History of mitral valve replacement with bioprosthetic valve S/P ureteral stent placement Hx of CABG Family History Mother , AT AGE 86 No problems noted. Father , AT AGE 65 Stroke Other Hyperlipidemia Hypertension Social History Smoking and tobacco/nicotine status: unknown if used tobacco/nicotine Alcohol intake: never Substance/Drug Use: never Lives independently: Yes Marital status: / Current occupational status: retired Physical Exam Const: COMMON NORMALS: no acute distress, patient oriented x3 and healthy appearing HENMT: COMMON NORMALS: normocephalic and atraumatic HEAD & SCALP: normocephalic and atraumatic Eye: COMMON NORMALS: Equal, round and reactive pupils present and EOMs intact bilaterally PUPIL: Yes Equal, round and reactive pupils present Neck/C-Spine: COMMON NORMALS: full ROM and supple Chest: COMMONS NORMALS: normal inspection of the chest and normal palpation of entire chest wall Resp: COMMON NORMALS: normal respiratory effort, No retractions, No use of accessory muscles and clear to auscultation bilaterally AUSCULTATION: clear to auscultation bilaterally Cardio: COMMON NORMALS: regular rate, regular rhythm and No murmurs present (Cardio) RATE: regular rate RHYTHM: regular rhythm GI: COMMON NORMALS: Normal to inspection, nondistended, normoactive bowel sounds present, Soft to palpation, non-tender and no masses PALPATION: Yes Soft to palpation Extremity: COMMON NORMALS: normal to inspection and full ROM Neuro: COMMON NORMALS: patient oriented x3, moves all extremities and no focal motor deficits Psych: COMMON NORMALS: mental status grossly normal, Normal thought process present and cooperative THOUGHT PROCESS: Normal thought process present Skin: COMMON NORMALS: no rashes or lesions noted and no wounds GENERAL SKIN EXAM: no rashes or lesions noted Course Vital Signs: Vital signs: Vital Signs Temperature 98.2 F 10/04/23 07:03 Pulse Rate 81 10/04/23 08:46 Respiratory Rate 21 H 10/04/23 08:15 Blood Pressure 145/77 10/04/23 08:46 Pulse Oximetry 96 10/04/23 08:15 MDM - Syncope Medical Decision Making Patient presents with a syncopal event he has been well-appearing here he feels improved orthostatics are normal he is stable for discharge she is to follow-up with PCP and return if worsening he understands agrees to plan. Medical Records I reviewed the patient's medical records. Lab Data I reviewed the patient's lab results. 10/04/23 08:22 10/04/23 07:24 Radiology Impressions Chest X-Ray 10/04/23 07:04 IMPRESSION: No acute cardiopulmonary process Head CT 10/04/23 07:16 IMPRESSION: 1. No acute intracranial process 2. Chronic/senescent changes as above Laboratory Results WBC 7.93 10^3/uL (3.29-11.43) 10/04/23 08:22 RBC 4.26 10^6/uL (3.85-5.65) 10/04/23 08:22 Hgb 13.30 g/dL (11.27-16.99) 10/04/23 08:22 Hct 39.8 % (37-53) 10/04/23 08:22 MCV 93.4 fl (82-101) 10/04/23 08:22 MCH 31.2 pg (27-33) 10/04/23 08:22 MCHC 33.4 g/dL (30-55) 10/04/23 08:22 RDW 13.6 % (12.1-15.1) 10/04/23 08:22 Plt Count 144 10^3/cmm (157-399) L 10/04/23 08:22 MPV 9.1 fL (7.4-10.4) 10/04/23 08:22 Neut % (Auto) 72.9 % 10/04/23 08:22 Lymph % (Auto) 17.9 % 10/04/23 08:22 Republic % (Auto) 6.4 % 10/04/23 08:22 Eos % (Auto) 2.1 % 10/04/23 08:22 Baso % (Auto) 0.4 % 10/04/23 08:22 Neut # (Auto) 5.78 10^3/uL (1.8-7.7) 10/04/23 08:22 Lymph # (Auto) 1.4 10^3/uL (0.8-4.8) 10/04/23 08:22 Republic # (Auto) 0.5 10^3/uL (0.2-0.9) 10/04/23 08:22 Eos # (Auto) 0.2 10^3/uL (0.0-0.8) 10/04/23 08:22 Baso # (Auto) 0.0 10^3/uL (0.0-0.1) 10/04/23 08:22 Nucleated RBC % (auto) 0 % 10/04/23 08:22 Nucleated RBCs # 0.0 /100WBC 10/04/23 08:22 PT 15.50 SECONDS (12.1-14.9) H 10/04/23 08:22 INR 1.19 (0.8-1.2) 10/04/23 08:22 Sodium 136 mmol/L (136-145) 10/04/23 07:24 Potassium 4.5 mmol/L (3.5-5.1) 10/04/23 07:24 Chloride 104 mmol/L (98-107) 10/04/23 07:24 Carbon Dioxide 19 mmol/L (22-29) L 10/04/23 07:24 Anion Gap 17.5 (5-19) 10/04/23 07:24 BUN 33 mg/dL (8-23) H 10/04/23 07:24 Creatinine 1.4 mg/dL (0.7-1.2) H 10/04/23 07:24 GFR Calculation Not Reportable 10/04/23 07:24 Glucose 169 mg/dL (65-115) H 10/04/23 07:24 POC Glucose 168 mg/dL (70-110) H 10/04/23 07:39 Calculated Osmolality 293 mOsm/kg (285-295) 10/04/23 07:24 Calcium 9.3 mg/dL (8.5-10.5) 10/04/23 07:24 Total Bilirubin 1.0 mg/dL (0.15-1.2) 10/04/23 07:24 AST 26 U/L (0-40) 10/04/23 07:24 ALT 27 U/L (0-41) 10/04/23 07:24 Alkaline Phosphatase 94 U/L (40-130) 10/04/23 07:24 Total Protein 7.0 g/dL (6.6-8.7) 10/04/23 07:24 Albumin 3.8 g/dL (3.5-5.2) 10/04/23 07:24 Globulin 3.2 g/dL (1.3-4.6) 10/04/23 07:24 All radiology interpretation(s) finalized by discharge Discharge Plan Discharge Patient Disposition: Home Clinical Impression: Syncope Condition: Stable Prescriptions: No Action tamsulosin 0.4 mg capsule 0.4 mg PO BID Qty: 180 3RF memantine 5 mg tablet 5 mg PO BID duloxetine 20 mg capsule,delayed release(DR/EC) 40 mg PO DAILY Ozempic 0.25 mg or 0.5 mg (2 mg/3 mL) pen injector 0.5 mg SUBCUT Q7D Rx Instructions: ON THURSDAY (DME) diabetic chris with 3 inserts See Rx Instructions .Route .MEDSUPPLY Qty: 1 0RF Rx Instructions: As directed to the sigrid woo Eliquis 5 mg tablet See Rx Instructions .ROUTE .COMPLEX Qty: 90 3RF Dose Instruction: TAKE ONE-HALF TABLET BY MOUTH TWICE A DAY FOR ATRIAL FIBRILLATION. THIS TABLET IS TO BE CUT IN HALF FOR YOUR DOSE Rx Instructions: TAKE ONE-HALF TABLET BY MOUTH TWICE A DAY FOR ATRIAL FIBRILLATION. THIS TABLET IS TO BE CUT IN HALF FOR YOUR DOSE atorvastatin 80 mg Tablet 80 mg PO QPM magnesium oxide [MagOx] 400 mg (241.3 mg magnesium) Tablet 400 mg PO BID calcium polycarbophil 625 mg Tablet 1,250 mg PO DAILY omeprazole 20 mg Tablet,Delayed Release (Dr/Ec) 20 mg PO BID cholecalciferol (vitamin D3) [Vitamin D3] 50 mcg (2,000 unit) tablet 2,000 unit PO QPM aspirin 81 mg Tablet,Delayed Release (Dr/Ec) 81 mg PO BEDTIME finasteride 5 mg Tablet 5 mg PO QPM buspirone 10 mg Tablet 5 mg PO TID vitamin B complex Tablet 2 tab PO QAM pyridoxine (vitamin B6) [Vitamin B-6] 100 mg Tablet 100 mg PO QAM furosemide 40 mg tablet 40 mg PO QAM PRN (Reason: Edema) acetaminophen 500 mg Tablet 500 mg PO QID PRN (Reason: Pain) carvedilol 3.125 mg Tablet 3.125 mg PO BID Rx Instructions: must administer with a meal/food potassium chloride 20 mEq tablet,ER particles/crystals 20 meq PO DAILY PRN (Reason: with lasix) midodrine 10 mg tablet 10 mg PO TID PRN (Reason: LOW BLOOD) fluoride (sodium) [Sodium Fluoride 5000 Plus] 1.1 % Cream 1 applic DENTAL DAILY omega 9-tjx-cin-fish oil [Fish Oil] 1,000 mg (120 mg-180 mg) Capsule 1 cap PO BID albuterol sulfate 90 mcg/actuation HFA aerosol inhaler 2 inh INHALATION Q4H PRN (Reason: shortness of breath or wheezing) Qty: 6.7 1RF Lantus U-100 Insulin 100 unit/mL solution 20 unit SUBCUT BEDTIME Discharge Orders: Discharge ED (Routine); Ordered 10/04/23 Ordered By: Le Rousseau Discharge Diet: Advance as tolerated Discharge Activity: Resume usual activity Patient Instructions: Syncope (ED) Coding Level of Care Code ED Valving Machine Operator for Nathaniel Alicea
--- NOTE | 2023-10-04 07:49 | ECG_ITS ---
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 Measurements Intervals Bell Rate: 82 P: 79 CT: 227 QRS: 54 QRSD: 147 T: -19 QT: 389 QTc: 456 Interpretive Statements SINUS RHYTHM WITH MARKED SINUS ARRHYTHMIA WITH FIRST DEGREE AV BLOCK RIGHT BUNDLE BRANCH BLOCK [120+ ms QRS DURATION, UPRIGHT V1, 40+ ms S IN I/aVL/V4/V5/V6] Compared to ECG 09/11/2023 15:32:52 No significant changes Electronically Signed On 10-05-2023 12:45:34 CDT by Alexi Orona M.D. [id number] f
[2023-10-04 07:53] LABS: Glucose Point of Care 168 mg/dL (70-110)
[2023-10-04 07:57] LABS: Alanine Aminotransferase 27 U/L (0-41); Albumin Level 3.8 g/dL (3.5-5.2); Alkaline Phosphatase 94 U/L (40-130); Blood Urea Nitrogen 33 mg/dL (8-23); Calcium 9.3 mg/dL (8.5-10.5); Carbon Dioxide 19 mmol/L (22-29); Chloride 104 mmol/L (98-107); Globulin 3.2 g/dL (1.3-4.6); Glucose 169 mg/dL (65-115); Osmolality Calculated 293 mOsm/kg (285-295); Sodium 136 mmol/L (136-145)
[2023-10-04 07:58] LABS: Anion Gap 17.5 (5-19); Aspartate Amino Transferase 26 U/L (0-40); Creatinine Clr Calc Pharmacy 45.2874; Potassium 4.5 mmol/L (3.5-5.1)
[2023-10-04] MEDS: sodium chloride 0.9% 500 ML 999 ML IV (08:24)
[2023-10-04 08:27] LABS: Basophils % 0.4 %; Eosinophils # 0.2 10^3/uL (0.0-0.8); Eosinophils % 2.1 %; Hematocrit 39.8 % (37-53); Lymphocytes # 1.4 10^3/uL (0.8-4.8); Lymphocytes % 17.9 %; Mean Corpuscular HGB Conc 33.4 g/dL (30-55); Mean Corpuscular Hemoglobin 31.2 pg (27-33); Mean Corpuscular Volume 93.4 fl (82-101); Mean Platelet Volume 9.1 fL (7.4-10.4); Monocytes # 0.5 10^3/uL (0.2-0.9); Monocytes % 6.4 %; Neutrophils # 5.78 10^3/uL (1.8-7.7); Neutrophils % 72.9 %; Nucleated Red Blood Cells % 0 %; Platelet Count 144 10^3/cmm (157-399); Red Blood Count 4.26 10^6/uL (3.85-5.65); Red Cell Distribution Width 13.6 % (12.1-15.1); White Blood Count 7.93 10^3/uL (3.29-11.43)
[2023-10-04 08:40] LABS: INR 1.19 (0.8-1.2)
== END 2023-10-04 09:55 | disposition home or self-care (01) ==
PROVIDERS: Emergency Provider Emergency Medicine
DX: R55 Syncope and collapse (principal); Z79.01 Long term (current) use of anticoagulants; Z79.85 Long-term (current) use of injectable non-insulin antidiabetic drugs; Z79.82 Long term (current) use of aspirin; Z79.4 Long term (current) use of insulin; E11.22 Type 2 diabetes mellitus with diabetic chronic kidney disease; I13.0 Hypertensive heart and chronic kidney disease with heart failure and stage 1 through stage 4 chronic kidney disease, or unspecified chronic kidney disease; N18.9 Chronic kidney disease, unspecified; I50.9 Heart failure, unspecified; E78.5 Hyperlipidemia, unspecified; I25.10 Atherosclerotic heart disease of native coronary artery without angina pectoris; Z95.1 Presence of aortocoronary bypass graft
CPT/HCPCS: 36415; 36416; 70450; 71045; 80053; 82962; 85025; 85610; 93005; 99285; J7040

== ENCOUNTER 2023-10-21 14:06 | Emergency (ER) | payer OTHER, MEDICARE, SELFPAY ==
[2023-10-21 14:10] VITALS: BP 146/65; PULSE 92; TEMP 37.1; O2SAT 92; BMI 28.4
--- NOTE | 2023-10-21 14:25 | CT_ITS ---
WS: [id number] CT HEAD TECHNIQUE: Noncontrast CT of the head obtained from the skullbase to the vertex. CLINICAL INFORMATION: Symptoms of acute stroke COMPARISON: 10/04/2023 DLP: [address] scans at [facility] use at least one of these dose optimization techniques: automated e xposure control; mA and/or kV adjustment per patient size (includes targeted exams where dose is matc hed to clinical indication); or iterative reconstruction. FINDINGS: No evidence of intracranial hemorrhage or mass effect. Ventricular system and basal cisterns are mane nt. Moderate small vessel changes with moderate parenchymal volume loss. No extra-axial fluid collect ions. No evidence of mass or mass effect. Tiny chronic lacunar infarct RIGHT caudate. 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 Vascular calcification. Mild mucosal thickening in the paranasal sinuses. Partial opacification of the ethmoid air cells. [place] air cells are well aerated. CT/CT head thrombolytic 28450 IMPRESSION: 1. No evidence of intracranial hemorrhage or mass effect. 2. Moderate small vessel changes with moderate parenchymal volume loss. 3. Vascular calcification. 4. Tiny chronic lacunar infarct RIGHT caudate. 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 5. No acute intracranial findings. Notified Wilver Babcock DO at 10/21/2023 2:43 PM.
--- NOTE | 2023-10-21 14:25 | ECG_ITS ---
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 Measurements Intervals Plain Rate: 87 P: 94 LA: 215 QRS: 73 QRSD: 136 T: -21 QT: 414 QTc: 501 Interpretive Statements SINUS RHYTHM WITH FIRST DEGREE AV BLOCK WITH OCCASIONAL SUPRAVENTRICULAR PREMATURE COMPLEXES RIGHT BUNDLE BRANCH BLOCK [120+ ms QRS DURATION, UPRIGHT V1, 40+ ms S IN I/aVL/V4/V5/V6] Compared to ECG 10/04/2023 07:49:12 Sinus arrhythmia no longer present Electronically Signed On 10-21-2023 15:37:12 CDT by Alexi Orona M.D. [id number]
--- NOTE | 2023-10-21 14:26 | ED_ITS ---
Documented by User: Wilver Babcock DO 10/21/23 18:07 HPI - Neuro Symptoms/Deficit 2 General: Chief Complaint: Weakness Stated Complaint: possible tia Time Seen by Provider: 10/21/23 14:17 History of Present Illness: 83-year-old male presents to the emergen cy room with a possible TIA. He was at home and he went to go to another room he got confused and stopped his daughter asked him what he was doing he answered that he was going to the kitchen then a few minutes later he was still standing in the same place he was unresponsive unable to speak or follow commands. She called concerned that he may be having a stroke when EMS arrived she been sitting in chair for about 10 minutes and he was back to his baseline on arrival here he is awake and alert has no specific or focal complaints. He has been a little bit weak lately and has had some upper respiratory symptoms no chest pain. He denies difficulty speech swallowing or vision. He does recall the event. He tells me he thinks he has had a stroke in the past. He is on oral anticoagulants. Associated symptoms: Deny chest pain Related Data Home Medications Medication Instructions Recorded Confirmed atorvastatin 80 mg tablet 80 mg PO QPM 03/31/19 07/30/23 calcium polycarbophil 625 mg tablet 1,250 mg PO DAILY 03/31/19 07/30/23 magnesium oxide 400 mg (241.3 mg 400 mg PO BID 03/31/19 07/30/23 magnesium) tablet (MagOx) omeprazole 20 mg tablet,delayed 20 mg PO BID 03/31/19 07/30/23 release cholecalciferol (vitamin D3) 50 2,000 unit PO QPM 02/14/20 07/30/23 mcg (2,000 unit) tablet (Vitamin D3) aspirin 81 mg tablet,delayed 81 mg PO BEDTIME 07/20/20 07/30/23 release finasteride 5 mg tablet 5 mg PO QPM 07/20/20 07/30/23 duloxetine 20 mg capsule,delayed 40 mg PO DAILY 09/05/22 07/30/23 release memantine 5 mg tablet 5 mg PO BID 09/05/22 07/30/23 semaglutide 0.25 mg or 0.5 mg (2 0.5 mg SUBCUT Q7D 09/05/22 07/30/23 mg/3 mL) subcutaneous pen injector (Ozempic) buspirone 10 mg tablet 5 mg PO TID 04/14/23 07/30/23 pyridoxine (vitamin B6) 100 mg 100 mg PO QAM 04/14/23 07/30/23 tablet (Vitamin B-6) vitamin B complex 2 tab PO QAM 04/14/23 07/30/23 acetaminophen 500 mg tablet 500 mg PO QID PRN Pain 07/09/23 07/30/23 carvedilol 3.125 mg tablet 3.125 mg PO BID 07/09/23 07/30/23 fluoride (sodium) 1.1 % dental 1 applic dental DAILY 07/09/23 07/30/23 cream (Sodium Fluoride 5000 Plus) furosemide 40 mg tablet 40 mg PO QAM PRN Edema 07/09/23 07/30/23 midodrine 10 mg tablet 10 mg PO TID PRN LOW BLOOD 07/09/23 07/30/23 omega 3-ugl-ldv-fish oil 1,000 mg 1 cap PO BID 07/09/23 07/30/23 (120 mg-180 mg) capsule (Fish Oil) potassium chloride 20 mEq 20 meq PO DAILY PRN with lasix 07/09/23 07/30/23 tablet,extended release(part/cryst) insulin glargine 100 unit/mL 20 unit SUBCUT BEDTIME 07/30/23 07/30/23 subcutaneous solution (Lantus U-100 Insulin) Previous Rx's Medication Instructions Recorded tamsulosin 0.4 mg capsule 0.4 mg PO BID #180 caps 09/27/20 albuterol sulfate 90 mcg/actuation 2 inh inhalation Q4H PRN shortness 04/04/23 aerosol inhaler of breath or wheezing #6.7 grams diabetic shoes with 3 inserts #1 ea 05/29/23 apixaban 5 mg tablet (Eliquis) See Rx Instructions .Route 08/05/23 .COMPLEX #90 tabs Allergies Allergy/AdvReac Type Severity Reaction Status Date / Time lisinopril Allergy ALGY-Rash Verified 10/21/23 14:20 Review of Systems 2 Const: Denies: fever(s) or chills Card: Denies: chest pain Resp: Denies: dyspnea GI: Denies: abdominal pain : Denies: dysuria, urinary frequency or urinary urgency Musc: Denies: neck pain or back pain Skin/Breast: Denies: rash PFSH ED 2 PFSH: Medical History Depression Chronic kidney disease Hyperlipidemia Atrial fibrillation Urgency incontinence Benign prostatic hyperplasia with lower urinary tract symptoms Urolithiasis Carotid bruit Syncope Diabetes mellitus Hypertension CHF (congestive heart failure) CAD (coronary artery disease) This patient had a coronary bypass surgery in 2008 along with a mitral valve repair and a maze procedure, at the [facility] in [place]. Surgical History History of tonsillectomy and adenoidectomy History of loop recorder placed late 2020 or early 2021 H/O carpal tunnel repair bilateral S/P trigger finger release History of maze procedure History of mitral valve replacement with bioprosthetic valve S/P ureteral stent placement Hx of CABG Family History Mother , AT AGE 86 No problems noted. Father , AT AGE 65 Stroke Other Hyperlipidemia Hypertension Social History Smoking and tobacco/nicotine status: unknown if used tobacco/nicotine Alcohol intake: never Substance/Drug Use: never Lives independently: Yes Marital status: / Current occupational status: retired NIH stroke score 2 NIHSS: Level Of Consciousness - 1a: 0 Level Of Consciousness Questions - 1b: Both Correct Level Of Consciousness Commands - 1c: Both Correct Best Gaze - 2: Normal Visual Almodovar - 3: No Visual Loss Facial Palsy - 4: N ormal Motor Arm Right - 5: No Drift Motor Arm Left - 5: No Drift Motor Leg Right - 6: No Drift Motor Leg Left - 6: No Drift Limb Ataxia - 7: A bsent Sensory - 8: Normal Best Language - 9: No Aphasia Dysarthia - 10: Normal Extinction And Inattention - 11: 0 Score: Total Score: 0 Physical Exam 2 Const: GENERAL APPEARANCE: cooperative ORIENTATION/CONSCIOUSNESS: Yes awake, Yes oriented to person, Yes oriented to place and Yes oriented to time HENMT: COMMON NORMALS: normocephalic, atraumatic and hearing grossly normal bilaterally HEAD & SCALP: normocephalic and atraumatic Resp: COMMON NORMALS: normal respiratory effort, No retractions, No use of accessory muscles and clear to auscultation bilaterally AUSCULTATION: clear to auscultation bilaterally Cardio: COMMON NORMALS: regular rate, regular rhythm and No murmurs present (Cardio) RATE: regular rate RHYTHM: regular rhythm GI: COMMON NORMALS: Soft to palpation and No hepatosplenomegaly present A USCULTATION: Yes normoactive bowel sounds PALPATION: Yes Soft to palpation, No Tenderness to palpation present (GI), No Guarding due to palpation present (GI) and Yes No hepatosplenomegaly present Extremity: COMMON NORMALS: normal to inspection, capillary refill normal, no clubbing, cyanosis or edema, no calf tenderness and no pedal edema Neuro: SENSORIUM/ORIENTATION: Yes oriented to person, Yes oriented to place and Yes oriented to time Skin: COMMON NORMALS: no rashes or lesions noted GENERAL SKIN EXAM: no rashes or lesions noted Course 2 Vital Signs: Vital signs: Vital Signs Temperature 98.7 F 10/21/23 14:10 Pulse Rate 83 10/21/23 16:03 Blood Pressure 101/62 10/21/23 16:03 Pulse Oximetry 92 10/21/23 14:10 Oxygen Delivery Me thod Room Air 10/21/23 14:10 MDM - Neuro Symptoms/Deficit Medical Decision Making Care signed out to Dr. Beck at change of shift. See final notes for diagnosis and disposition. Lab Data 10/21/23 14:58 10/21/23 14:[address] 10/21/23 14:25 IMPRESSION: 1. No evidence of intracranial hemorrhage or mass effect. 2. Moderate small vessel changes with moderate parenchymal volume loss. 3. Vascular calcification. 4. Tiny chronic lacunar infarct RIGHT caudate. 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 5. No acute intracranial findings. Notified Wilver Babcock DO at 10/21/2023 2:43 PM. Laboratory Results WBC 4.56 10^3/uL (3.29-11.43) 10/21/23 14:58 RBC 4.04 10^6/uL (3.85-5.65) 10/21/23 14:58 Hgb 12.80 g/dL (11.27-16.99) 10/21/23 14:58 Hct 37.8 % (37-53) 10/21/23 14:58 MCV 93.6 fl (82-101) 10/21/23 14:58 MCH 31.7 pg (27-33) 10/21/23 14:58 MCHC 33.9 g/dL (30-55) 10/21/23 14:58 RDW 13.7 % (12.1-15.1) 10/21/23 14:58 Plt Count 124 10^3/cmm (157-399) L 10/21/23 14:58 MPV 9.3 fL (7.4-10.4) 10/21/23 14:58 Neut % (Auto) 67.6 % 10/21/23 14:58 Lymph % (Auto) 21.9 % 10/21/23 14:58 [place] % (Auto) 9.6 % 10/21/23 14:58 Eos % (Auto) 0.7 % 10/21/23 14:58 Baso % (Auto) 0.0 % 10/21/23 14:58 Neut # (Auto) 3.08 10^3/uL (1.8-7.7) 10/21/23 14:58 Lymph # (Auto) 1.0 10^3/uL (0.8-4.8) 10/21/23 14:58 [place] # (Auto) 0.4 10^3/uL (0.2-0.9) 10/21/23 14:58 Eos # (Auto) 0.0 10^3/uL (0.0-0.8) 10/21/23 14:58 Baso # (Auto) 0.0 10^3/uL (0.0-0.1) 10/21/23 14:58 Nucleated RBC % (auto) 0 % 10/21/23 14:58 Nucleated RBCs # 0.0 /100WBC 10/21/23 14:58 PT 16.50 SECONDS (12.1-14.9) H 10/21/23 14:58 INR 1.28 (0.8-1.2) H 10/21/23 14:58 APTT 39.9 SECONDS (23.9-36.7) H 10/21/23 14:58 Sodium 135 mmol/L (136-145) L 10/21/23 14:58 Potassium 3.7 mmol/L (3.5-5.1) 10/21/23 14:58 Chloride 100 mmol/L (98-107) 10/21/23 14:58 Carbon Dioxide 23 mmol/L (22-29) 10/21/23 14:58 Anion Gap 15.7 (5-19) 10/21/23 14:58 BUN 26 mg/dL (8-23) H 10/21/23 14:58 Creatinine 1.3 mg/dL (0.7-1.2) H 10/21/23 14:58 GFR Calculation Not Reportable 10/21/23 14:58 Glucose 125 mg/dL (65-115) H 10/21/23 14:58 POC Glucose 135 mg/dL (70-110) H 10/21/23 14:44 Calculated Osmolality 286 mOsm/kg (285-295) 10/21/23 14:58 Calcium 8.3 mg/dL (8.5-10.5) L 10/21/23 14:58 Total Bilirubin 1.1 mg/dL (0.15-1.2) 10/21/23 14:58 AST 28 U/L (0-40) 10/21/23 14:58 ALT 26 U/L (0-41) 10/21/23 14:58 Alkaline Phosphatase 72 U/L (40-130) 10/21/23 14:58 Total Protein 6.3 g/dL (6.6-8.7) L 10/21/23 14:58 Albumin 3.3 g/dL (3.5-5.2) L 10/21/23 14:58 Globulin 3.0 g/dL (1.3-4.6) 10/21/23 14:58 Urine Color Dark yellow (Yellow) A 10/21/23 17:53 Urine Appearance Clear (CLEAR) 10/21/23 17:53 Urine pH 5.5 (5-7) 10/21/23 17:53 Ur Specific [place] 1.024 (1.005-1.030) 10/21/23 17:53 Urine Protein 2+ (Negative) A 10/21/23 17:53 Urine Glucose (UA) Negative (Normal) 10/21/23 17:53 Urine Ketones 1+ (Negative) H 10/21/23 17:53 Urine Blood Negative (Negative) 10/21/23 17:53 Urine Nitrate Negative (Negative) 10/21/23 17:53 Urine Bilirubin Negative (Negative) 10/21/23 17:53 Urine Urobilinogen 1.0 mg/dL (Negative) 10/21/23 17:53 Ur Leukocyte Esterase Trace (Negative) A 10/21/23 17:53 Urine RBC 0-2 /hpf (0-2) 10/21/23 17:53 Urine WBC 0-5 /hpf (0-5) 10/21/23 17:53 Ur Squamous Epith Cells 0-5 /hpf (0-5) 10/21/23 17:53 Amorphous Sediment Not Reportable 10/21/23 17:53 Urine Bacteria None seen /hpf (NONE) 10/21/23 17:53 Hyaline Casts 16.53 /lpf 10/21/23 17:53 Fine Granular Casts 0-4 /lpf H 10/21/23 17:53 Coarse Granular Casts 0-4 /lpf H 10/21/23 17:53 Urine Opiates Screen Negative ng/mL (Negative) 10/21/23 17:53 Ur Barbiturates Screen Negative ng/mL (Negative) 10/21/23 17:53 Ur Phencyclidine Scrn Negative ng/mL (Negative) 10/21/23 17:53 Ur Amphetamines Screen Negative ng/mL (Negative) 10/21/23 17:53 U Benzodiazepines Scrn Negative ng/mL (Negative) 10/21/23 17:53 Urine Cocaine Screen Negative ng/mL (Negative) 10/21/23 17:53 U Marijuana (THC) Screen Positive ng/mL (Negative) H 10/21/23 17:53 XR interpretation done by ED provider, pending radiology final review Discharge Plan Discharge Patient Disposition: Home Clinical Impression: Dehydration, TIA (transient ischemic attack) Condition: Stable Prescriptions: No Action tamsulosin 0.4 mg capsule 0.4 mg PO BID Qty: 180 3RF memantine 5 mg tablet 5 mg PO BID duloxetine 20 mg capsule,delayed release(DR/EC) 40 mg PO DAILY Ozempic 0.25 mg or 0.5 mg (2 mg/3 mL) pen injector 0.5 mg SUBCUT Q7D Rx Instructions: ON THURSDAY (DME) diabetic shoes with 3 inserts See Rx Instructions .Route .MEDSUPPLY Qty: 1 0RF Rx Instructions: As directed to the sigrid [facility]oo Eliquis 5 mg tablet See Rx Instructions .ROUTE .COMPLEX Qty: 90 3RF Dose Instruction: TAKE ONE-HALF TABLET BY MOUTH TWICE A DAY FOR ATRIAL FIBRILLATION. THIS TABLET IS TO BE CUT IN HALF FOR YOUR DOSE Rx Instructions: TAKE ONE-HALF TABLET BY MOUTH TWICE A DAY FOR ATRIAL FIBRILLATION. THIS TABLET IS TO BE CUT IN HALF FOR YOUR DOSE atorvastatin 80 mg Tablet 80 mg PO QPM magnesium oxide [MagOx] 400 mg (241.3 mg magnesium) Tablet 400 mg PO BID calcium polycarbophil 625 mg Tablet 1,250 mg PO DAILY omeprazole 20 mg Tablet,Delayed Release (Dr/Ec) 20 mg PO BID cholecalciferol (vitamin D3) [Vitamin D3] 50 mcg (2,000 unit) tablet 2,000 unit PO QPM aspirin 81 mg Tablet,Delayed Release (Dr/Ec) 81 mg PO BEDTIME finasteride 5 mg Tablet 5 mg PO QPM buspirone 10 mg Tablet 5 mg PO TID vitamin B complex Tablet 2 tab PO QAM pyridoxine (vitamin B6) [Vitamin B-6] 100 mg Tablet 100 mg PO QAM furosemide 40 mg tablet 40 mg PO QAM PRN (Reason: Edema) acetaminophen 500 mg Tablet 500 mg PO QID PRN (Reason: Pain) carvedilol 3.125 mg Tablet 3.125 mg PO BID Rx Instructions: must administer with a meal/food potassium chloride 20 mEq tablet,ER particles/crystals 20 meq PO DAILY PRN (Reason: with lasix) midodrine 10 mg tablet 10 mg PO TID PRN (Reason: LOW BLOOD) fluoride (sodium) [Sodium Fluoride 5000 Plus] 1.1 % Cream 1 applic DENTAL DAILY omega 5-gdr-cjy-fish oil [Fish Oil] 1,000 mg (120 mg-180 mg) Capsule 1 cap PO BID albuterol sulfate 90 mcg/actuation HFA aerosol inhaler 2 inh INHALATION Q4H PRN (Reason: shortness of breath or wheezing) Qty: 6.7 1RF Lantus U-100 Insulin 100 unit/mL solution 20 unit SUBCUT BEDTIME Discharge Orders: Discharge ED (Routine); Ordered 10/21/23 Ordered By: Selma Beck Discharge Diet: Usual diet Discharge Activity: Resume usual activity Patient Instructions: Transient Ischemic Attack (ED) Activity Restrictions/Additional Instructions: Thank you for choosing [facility] for your healthcare needs today. Please realize this is an emergency room and that we are providing you with a medical screening exam and this may not be complete and all inclusive of all the testing and or work up that you may need to determine your ailment or severity of your illness. You have been screened and evaluated and felt safe for discharge. Health conditions do change or evolve sometimes and as such it is important that you follow up with your Primary Doctor to be re checked, 3-5 days is a general good time frame for follow up. You are always welcome to return to the ED for re assessment if your symptoms are worsening or you have new concerns Coding Level of Care Code ED Certified Surgical Technician for Nathaniel Alicea Documented by User: Selma Beck MD 10/21/23 19:15 HPI - Neuro Symptoms/Deficit 2 General: Chief Complaint: Weakness Stated Complaint: possible tia Time Seen by Provider: 10/21/23 14:17 Related Data Home Medications Medication Instructions Recorded Confirmed atorvastatin 80 mg tablet 80 mg PO QPM 03/31/19 07/30/23 calcium polycarbophil 625 mg tablet 1,250 mg PO DAILY 03/31/19 07/30/23 magnesium oxide 400 mg (241.3 mg 400 mg PO BID 03/31/19 07/30/23 magnesium) tablet (MagOx) omeprazole 20 mg tablet,delayed 20 mg PO BID 03/31/19 07/30/23 release cholecalciferol (vitamin D3) 50 2,000 unit PO QPM 02/14/20 07/30/23 mcg (2,000 unit) tablet (Vitamin D3) aspirin 81 mg tablet,delayed 81 mg PO BEDTIME 07/20/20 07/30/23 release finasteride 5 mg tablet 5 mg PO QPM 07/20/20 07/30/23 duloxetine 20 mg capsule,delayed 40 mg PO DAILY 09/05/22 07/30/23 release memantine 5 mg tablet 5 mg PO BID 09/05/22 07/30/23 semaglutide 0.25 mg or 0.5 mg (2 0.5 mg SUBCUT Q7D 09/05/22 07/30/23 mg/3 mL) subcutaneous pen injector (Ozempic) buspirone 10 mg tablet 5 mg PO TID 04/14/23 07/30/23 pyridoxine (vitamin B6) 100 mg 100 mg PO QAM 04/14/23 07/30/23 tablet (Vitamin B-6) vitamin B complex 2 tab PO QAM 04/14/23 07/30/23 acetaminophen 500 mg tablet 500 mg PO QID PRN Pain 07/09/23 07/30/23 carvedilol 3.125 mg tablet 3.125 mg PO BID 07/09/23 07/30/23 fluoride (sodium) 1.1 % dental 1 applic dental DAILY 07/09/23 07/30/23 cream (Sodium Fluoride 5000 Plus) furosemide 40 mg tablet 40 mg PO QAM PRN Edema 07/09/23 07/30/23 midodrine 10 mg tablet 10 mg PO TID PRN LOW BLOOD 07/09/23 07/30/23 omega 2-ehb-bwi-fish oil 1,000 mg 1 cap PO BID 07/09/23 07/30/23 (120 mg-180 mg) capsule (Fish Oil) potassium chloride 20 mEq 20 meq PO DAILY PRN with lasix 07/09/23 07/30/23 tablet,extended release(part/cryst) insulin glargine 100 unit/mL 20 unit SUBCUT BEDTIME 07/30/23 07/30/23 subcutaneous solution (Lantus U-100 Insulin) Previous Rx's Medication Instructions Recorded tamsulosin 0.4 mg capsule 0.4 mg PO BID #180 caps 09/27/20 albuterol sulfate 90 mcg/actuation 2 inh inhalation Q4H PRN shortness 04/04/23 aerosol inhaler of breath or wheezing #6.7 grams diabetic shoes with 3 inserts #1 ea 05/29/23 apixaban 5 mg tablet (Eliquis) See Rx Instructions .Route 08/05/23 .COMPLEX #90 tabs Allergies Allergy/AdvReac Type Severity Reaction Status Date / Time lisinopril Allergy ALGY-Rash Verified 10/21/23 14:20 PFSH ED 2 PFSH: Medical History Depression Chronic kidney disease Hyperlipidemia Atrial fibrillation Urgency incontinence Benign prostatic hyperplasia with lower urinary tract symptoms Urolithiasis Carotid bruit Syncope Diabetes mellitus Hypertension CHF (congestive heart failure) CAD (coronary artery disease) This patient had a coronary bypass surgery in 2008 along with a mitral valve repair and a maze procedure, at the [facility] in [place]. Surgical History History of tonsillectomy and adenoidectomy History of loop recorder placed late 2020 or early 2021 H/O carpal tunnel repair bilateral S/P trigger finger release History of maze procedure History of mitral valve replacement with bioprosthetic valve S/P ureteral stent placement Hx of CABG Family History Mother , AT AGE 86 No problems noted. Father , AT AGE 65 Stroke Other Hyperlipidemia Hypertension Social History Smoking and tobacco/nicotine status: unknown if used tobacco/nicotine Alcohol intake: never Substance/Drug Use: never Lives independently: Yes Marital status: / Current occupational status: retired NIH stroke score 2 Score: Total Score: 0 Course 2 Vital Signs: Vital signs: Vital Signs Temperature 98.7 F 10/21/23 14:10 Pulse Rate 83 10/21/23 16:03 Blood Pressure 101/62 10/21/23 16:03 Pulse Oximetry 92 10/21/23 14:10 Oxygen Delivery Me thod Room Air 10/21/23 14:10 MDM - Neuro Symptoms/Deficit Medical Decision Making Care signed out to Dr. Beck at change of shift. See final notes for diagnosis and disposition. Patient care was checked out to me at shift change awaiting fluids to see if patient improved some. Apparently he is feeling better after. 83-year-old man who had presented to the ER with brief altered mental status and was called a stroke. Neuro was consulted. CT has been negative. Lab work is fairly unremarkable. He still feels a little bit weak and so is received some fluids and now seems to be feeling better. Assessment and plan: TIA Dehydration Weakness - Discharged home - All laboratory values were reviewed and interpreted personally by myself, the ER physician - All imaging was reviewed and interpreted personally by myself, the ER physician. - Evaluation and treatment of this problem were appropriate in the emergency setting Lab Data 10/21/23 14:58 10/21/23 14:[address] 10/21/23 14:25 IMPRESSION: 1. No evidence of intracranial hemorrhage or mass effect. 2. Moderate small vessel changes with moderate parenchymal volume loss. 3. Vascular calcification. 4. Tiny chronic lacunar infarct RIGHT caudate. 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 5. No acute intracranial findings. Notified Wilver Babcock DO at 10/21/2023 2:43 PM. Laboratory Results WBC 4.56 10^3/uL (3.29-11.43) 10/21/23 14:58 RBC 4.04 10^6/uL (3.85-5.65) 10/21/23 14:58 Hgb 12.80 g/dL (11.27-16.99) 10/21/23 14:58 Hct 37.8 % (37-53) 10/21/23 14:58 MCV 93.6 fl (82-101) 10/21/23 14:58 MCH 31.7 pg (27-33) 10/21/23 14:58 MCHC 33.9 g/dL (30-55) 10/21/23 14:58 RDW 13.7 % (12.1-15.1) 10/21/23 14:58 Plt Count 124 10^3/cmm (157-399) L 10/21/23 14:58 MPV 9.3 fL (7.4-10.4) 10/21/23 14:58 Neut % (Auto) 67.6 % 10/21/23 14:58 Lymph % (Auto) 21.9 % 10/21/23 14:58 [place] % (Auto) 9.6 % 10/21/23 14:58 Eos % (Auto) 0.7 % 10/21/23 14:58 Baso % (Auto) 0.0 % 10/21/23 14:58 Neut # (Auto) 3.08 10^3/uL (1.8-7.7) 10/21/23 14:58 Lymph # (Auto) 1.0 10^3/uL (0.8-4.8) 10/21/23 14:58 [place] # (Auto) 0.4 10^3/uL (0.2-0.9) 10/21/23 14:58 Eos # (Auto) 0.0 10^3/uL (0.0-0.8) 10/21/23 14:58 Baso # (Auto) 0.0 10^3/uL (0.0-0.1) 10/21/23 14:58 Nucleated RBC % (auto) 0 % 10/21/23 14:58 Nucleated RBCs # 0.0 /100WBC 10/21/23 14:58 PT 16.50 SECONDS (12.1-14.9) H 10/21/23 14:58 INR 1.28 (0.8-1.2) H 10/21/23 14:58 APTT 39.9 SECONDS (23.9-36.7) H 10/21/23 14:58 Sodium 135 mmol/L (136-145) L 10/21/23 14:58 Potassium 3.7 mmol/L (3.5-5.1) 10/21/23 14:58 Chloride 100 mmol/L (98-107) 10/21/23 14:58 Carbon Dioxide 23 mmol/L (22-29) 10/21/23 14:58 Anion Gap 15.7 (5-19) 10/21/23 14:58 BUN 26 mg/dL (8-23) H 10/21/23 14:58 Creatinine 1.3 mg/dL (0.7-1.2) H 10/21/23 14:58 GFR Calculation Not Reportable 10/21/23 14:58 Glucose 125 mg/dL (65-115) H 10/21/23 14:58 POC Glucose 135 mg/dL (70-110) H 10/21/23 14:44 Calculated Osmolality 286 mOsm/kg (285-295) 10/21/23 14:58 Calcium 8.3 mg/dL (8.5-10.5) L 10/21/23 14:58 Total Bilirubin 1.1 mg/dL (0.15-1.2) 10/21/23 14:58 AST 28 U/L (0-40) 10/21/23 14:58 ALT 26 U/L (0-41) 10/21/23 14:58 Alkaline Phosphatase 72 U/L (40-130) 10/21/23 14:58 Total Protein 6.3 g/dL (6.6-8.7) L 10/21/23 14:58 Albumin 3.3 g/dL (3.5-5.2) L 10/21/23 14:58 Globulin 3.0 g/dL (1.3-4.6) 10/21/23 14:58 Urine Color Dark yellow (Yellow) A 10/21/23 17:53 Urine Appearance Clear (CLEAR) 10/21/23 17:53 Urine pH 5.5 (5-7) 10/21/23 17:53 Ur Specific [place] 1.024 (1.005-1.030) 10/21/23 17:53 Urine Protein 2+ (Negative) A 10/21/23 17:53 Urine Glucose (UA) Negative (Normal) 10/21/23 17:53 Urine Ketones 1+ (Negative) H 10/21/23 17:53 Urine Blood Negative (Negative) 10/21/23 17:53 Urine Nitrate Negative (Negative) 10/21/23 17:53 Urine Bilirubin Negative (Negative) 10/21/23 17:53 Urine Urobilinogen 1.0 mg/dL (Negative) 10/21/23 17:53 Ur Leukocyte Esterase Trace (Negative) A 10/21/23 17:53 Urine RBC 0-2 /hpf (0-2) 10/21/23 17:53 Urine WBC 0-5 /hpf (0-5) 10/21/23 17:53 Ur Squamous Epith Cells 0-5 /hpf (0-5) 10/21/23 17:53 Amorphous Sediment Not Reportable 10/21/23 17:53 Urine Bacteria None seen /hpf (NONE) 10/21/23 17:53 Hyaline Casts 16.53 /lpf 10/21/23 17:53 Fine Granular Casts 0-4 /lpf H 10/21/23 17:53 Coarse Granular Casts 0-4 /lpf H 10/21/23 17:53 Urine Opiates Screen Negative ng/mL (Negative) 10/21/23 17:53 Ur Barbiturates Screen Negative ng/mL (Negative) 10/21/23 17:53 Ur Phencyclidine Scrn Negative ng/mL (Negative) 10/21/23 17:53 Ur Amphetamines Screen Negative ng/mL (Negative) 10/21/23 17:53 U Benzodiazepines Scrn Negative ng/mL (Negative) 10/21/23 17:53 Urine Cocaine Screen Negative ng/mL (Negative) 10/21/23 17:53 U Marijuana (THC) Screen Positive ng/mL (Negative) H 10/21/23 17:53 Discharge Plan Discharge Patient Disposition: Home Clinical Impression: Dehydration, TIA (transient ischemic attack) Condition: Stable Prescriptions: No Action tamsulosin 0.4 mg capsule 0.4 mg PO BID Qty: 180 3RF memantine 5 mg tablet 5 mg PO BID duloxetine 20 mg capsule,delayed release(DR/EC) 40 mg PO DAILY Ozempic 0.25 mg or 0.5 mg (2 mg/3 mL) pen injector 0.5 mg SUBCUT Q7D Rx Instructions: ON THURSDAY (DME) diabetic shoes with 3 inserts See Rx Instructions .Route .MEDSUPPLY Qty: 1 0RF Rx Instructions: As directed to the shoe guys Eliquis 5 mg tablet See Rx Instructions .ROUTE .COMPLEX Qty: 90 3RF Dose Instruction: TAKE ONE-HALF TABLET BY MOUTH TWICE A DAY FOR ATRIAL FIBRILLATION. THIS TABLET IS TO BE CUT IN HALF FOR YOUR DOSE Rx Instructions: TAKE ONE-HALF TABLET BY MOUTH TWICE A DAY FOR ATRIAL FIBRILLATION. THIS TABLET IS TO BE CUT IN HALF FOR YOUR DOSE atorvastatin 80 mg Tablet 80 mg PO QPM magnesium oxide [MagOx] 400 mg (241.3 mg magnesium) Tablet 400 mg PO BID calcium polycarbophil 625 mg Tablet 1,250 mg PO DAILY omeprazole 20 mg Tablet,Delayed Release (Dr/Ec) 20 mg PO BID cholecalciferol (vitamin D3) [Vitamin D3] 50 mcg (2,000 unit) tablet 2,000 unit PO QPM aspirin 81 mg Tablet,Delayed Release (Dr/Ec) 81 mg PO BEDTIME finasteride 5 mg Tablet 5 mg PO QPM buspirone 10 mg Tablet 5 mg PO TID vitamin B complex Tablet 2 tab PO QAM pyridoxine (vitamin B6) [Vitamin B-6] 100 mg Tablet 100 mg PO QAM furosemide 40 mg tablet 40 mg PO QAM PRN (Reason: Edema) acetaminophen 500 mg Tablet 500 mg PO QID PRN (Reason: Pain) carvedilol 3.125 mg Tablet 3.125 mg PO BID Rx Instructions: must administer with a meal/food potassium chloride 20 mEq tablet,ER particles/crystals 20 meq PO DAILY PRN (Reason: with lasix) midodrine 10 mg tablet 10 mg PO TID PRN (Reason: LOW BLOOD) fluoride (sodium) [Sodium Fluoride 5000 Plus] 1.1 % Cream 1 applic DENTAL DAILY omega 2-onq-pja-fish oil [Fish Oil] 1,000 mg (120 mg-180 mg) Capsule 1 cap PO BID albuterol sulfate 90 mcg/actuation HFA aerosol inhaler 2 inh INHALATION Q4H PRN (Reason: shortness of breath or wheezing) Qty: 6.7 1RF Lantus U-100 Insulin 100 unit/mL solution 20 unit SUBCUT BEDTIME Discharge Orders: Discharge ED (Routine); Ordered 10/21/23 Ordered By: Selma Beck Discharge Diet: Usual diet Discharge Activity: Resume usual activity Patient Instructions: Transient Ischemic Attack (ED) Activity Restrictions/Additional Instructions: Thank you for choosing [facility] for your healthcare needs today. Please realize this is an emergency room and that we are providing you with a medical screening exam and this may not be complete and all inclusive of all the testing and or work up that you may need to determine your ailment or severity of your illness. You have been screened and evaluated and felt safe for discharge. Health conditions do change or evolve sometimes and as such it is important that you follow up with your Primary Doctor to be re checked, 3-5 days is a general good time frame for follow up. You are always welcome to return to the ED for re assessment if your symptoms are worsening or you have new concerns Coding Level of Care Code ED Certified Surgical Technician for Nathaniel Alicea
[2023-10-21 14:47] LABS: Glucose Point of Care 135 mg/dL (70-110)
[2023-10-21 15:19] LABS: Eosinophils % 0.7 %; Hematocrit 37.8 % (37-53); Lymphocytes % 21.9 %; Mean Corpuscular HGB Conc 33.9 g/dL (30-55); Mean Corpuscular Hemoglobin 31.7 pg (27-33); Mean Corpuscular Volume 93.6 fl (82-101); Mean Platelet Volume 9.3 fL (7.4-10.4); Monocytes # 0.4 10^3/uL (0.2-0.9); Monocytes % 9.6 %; Neutrophils # 3.08 10^3/uL (1.8-7.7); Neutrophils % 67.6 %; Nucleated Red Blood Cells % 0 %; Platelet Count 124 10^3/cmm (157-399); Red Blood Count 4.04 10^6/uL (3.85-5.65); Red Cell Distribution Width 13.7 % (12.1-15.1); White Blood Count 4.56 10^3/uL (3.29-11.43)
--- NOTE | 2023-10-21 15:25 | P.CONIM_ITS ---
Providers/Reason For Consult 2 Consulting Physician/Specialty*: Antonio Bolanos MD neurology and epilepsy Reason for Consult*: Code stroke/acute care emergency department room #12 History of Present Illness History of Present Illness Jose Armendariz is a 83 year old male with a history of implanted loop recorder, chronic kidney disease, depression, hyperlipidemia, atrial fibrillation, sinus node dysfunction, mitral valve replacement with bioprosthetic valve, seizures, diabetes mellitus, hypertension, and peripheral neuropathy and bilateral leg weakness. According to the patient around 1:30 PM he was in the living room and stood up to go into the kitchen. Patient's [id number]-tf-[id number] witnessed that approximately 10 minutes later the patient was still standing on his walker and would not respond. Therefore patient was brought to the [facility] emergency department. Code stroke was initiated at 2:27 PM. NIH stroke score = 0 Glucose Accu-Chek [address] revealed the followin. No evidence of intracranial hemorrhage or mass effect. 2. Moderate small vessel changes with moderate parenchymal volume loss. 3. Vascular calcification. 4. Tiny chronic lacunar infarct RIGHT caudate. 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 5. No acute intracranial findings. Drug allergies: Lisinopril which resulted in a rash Current medications: Albuterol sulfate 2 inhalations every 4 hours Eliquis 5 mg tablets Aspirin 81 mg p.o. nightly Lipitor 80 mg p.o. daily BuSpar 5 mg p.o. 3 times daily Carvedilol 3.125 mg p.o. twice daily Vitamin D3 2000 international units p.o. daily Cymbalta 20 mg 2 p.o. daily Finasteride 5 mg p.o. daily Lasix 40 mg p.o. daily as needed Lantus insulin 20 units subcutaneously at bedtime Namenda 5 mg p.o. twice daily Midodrine 10 mg p.o. 3 times daily Corinne-3 fatty acids 1 p.o. twice daily Omeprazole 20 mg p.o. twice daily Potassium chloride 20 mEq p.o. daily as needed Vitamin B6 100 mg p.o. daily Semaglutide 0.5 mg subcutaneously every 7 days Tamsulosin 0.4 mg p.o. twice daily Vitamin B complex 2 tablets p.o. daily Past medical history: Atrial fibrillation Sinus node dysfunction Mitral valve replacement with bioprosthetic valve Congestive heart failure Coronary atherosclerotic heart disease Seizures Benign prostate hyperplasia Transient ischemic attack Depression Implanted loop recorder Chronic kidney disease Type 2 diabetes mellitus Peripheral neuropathy Urinary incontinence Hypertension Habits: Unknown Family history: Unknown Review of Systems 2 General: Reports: 10 or more systems reviewed and unremarkable except in HPI and below Medications/Allergies Home Medications Medication Instructions Recorded Confirmed Last Taken Type atorvastatin 80 mg tablet 80 mg PO QPM 03/31/19 07/30/23 07/29/23 History calcium polycarbophil 625 mg tablet 1,250 mg PO DAILY 03/31/19 07/30/23 07/30/23 History magnesium oxide 400 mg (241.3 mg 400 mg PO BID 03/31/19 07/30/23 07/30/23 History magnesium) tablet (MagOx) omeprazole 20 mg tablet,delayed 20 mg PO BID 03/31/19 07/30/23 07/30/23 History release cholecalciferol (vitamin D3) 50 2,000 unit PO QPM 02/14/20 07/30/23 07/29/23 History mcg (2,000 unit) tablet (Vitamin D3) aspirin 81 mg tablet,delayed 81 mg PO BEDTIME 07/20/20 07/30/23 07/29/23 History release finasteride 5 mg tablet 5 mg PO QPM 07/20/20 07/30/23 07/29/23 History tamsulosin 0.4 mg capsule 0.4 mg PO BID #180 caps 09/27/20 07/30/23 07/30/23 Rx duloxetine 20 mg capsule,delayed 40 mg PO DAILY 09/05/22 07/30/23 07/30/23 History release memantine 5 mg tablet 5 mg PO BID 09/05/22 07/30/23 07/30/23 History semaglutide 0.25 mg or 0.5 mg (2 0.5 mg SUBCUT Q7D 09/05/22 07/30/23 07/24/23 History mg/3 mL) subcutaneous pen injector (Ozempic) albuterol sulfate 90 mcg/actuation 2 inh inhalation Q4H PRN shortness 04/04/23 07/30/23 Unknown Rx aerosol inhaler of breath or wheezing #6.7 grams buspirone 10 mg tablet 5 mg PO TID 04/14/23 07/30/23 07/30/23 History pyridoxine (vitamin B6) 100 mg 100 mg PO QAM 04/14/23 07/30/23 07/30/23 History tablet (Vitamin B-6) vitamin B complex 2 tab PO QAM 04/14/23 07/30/23 07/30/23 History diabetic shoes with 3 inserts #1 ea 05/29/23 07/30/23 Unknown Rx acetaminophen 500 mg tablet 500 mg PO QID PRN Pain 07/09/23 07/30/23 Unknown History carvedilol 3.125 mg tablet 3.125 mg PO BID 07/09/23 07/30/23 07/30/23 History fluoride (sodium) 1.1 % dental 1 applic dental DAILY 07/09/23 07/30/23 07/30/23 History cream (Sodium Fluoride 5000 Plus) furosemide 40 mg tablet 40 mg PO QAM PRN Edema 07/09/23 07/30/23 Unknown History midodrine 10 mg tablet 10 mg PO TID PRN LOW BLOOD 07/09/23 07/30/23 Unknown History omega 4-dtt-zfk-fish oil 1,000 mg 1 cap PO BID 07/09/23 07/30/23 07/30/23 History (120 mg-180 mg) capsule (Fish Oil) potassium chloride 20 mEq 20 meq PO DAILY PRN with lasix 07/09/23 07/30/23 07/08/23 History tablet,extended release(part/cryst) insulin glargine 100 unit/mL 20 unit SUBCUT BEDTIME 07/30/23 07/30/23 07/29/23 History subcutaneous solution (Lantus U-100 Insulin) apixaban 5 mg tablet (Eliquis) See Rx Instructions .Route 08/05/23 Unknown Rx .COMPLEX #90 tabs Allergies Allergy/AdvReac Type Severity Reaction Status Date / Time lisinopril Allergy ALGY-Rash Verified 10/21/23 14:20 PFSH Acute 2 PFSH: Medical History Depression Chronic kidney disease Hyperlipidemia Atrial fibrillation Urgency incontinence Benign prostatic hyperplasia with lower urinary tract symptoms Urolithiasis Carotid bruit Syncope Diabetes mellitus Hypertension CHF (congestive heart failure) CAD (coronary artery disease) This patient had a coronary bypass surgery in 2008 along with a mitral valve repair and a maze procedure, at the [facility] in [place]. Surgical History History of tonsillectomy and adenoidectomy History of loop recorder placed late 2020 or early 2021 H/O carpal tunnel repair bilateral S/P trigger finger release History of maze procedure History of mitral valve replacement with bioprosthetic valve S/P ureteral stent placement Hx of CABG Family History Mother , AT AGE 86 No problems noted. Father , AT AGE 65 Stroke Other Hyperlipidemia Hypertension Social History Smoking and tobacco/nicotine status: unknown if used tobacco/nicotine Alcohol intake: never Substance/Drug Use: never Lives independently: Yes Marital status: / Current occupational status: retired Vitals/I&O/Wt Last Vital Signs Temp 98.7 F 10/21/23 14:10 Pulse 92 10/21/23 14:10 BP 146/65 10/21/23 14:10 Pulse Ox 92 10/21/23 14:10 O2 Del Method Room Air 10/21/23 14:10 Weight last 48 hrs Weight 198 lb Physical Exam 2 Narrative: Blood pressure 146/65 heart rate 92 temperature 98.7 O2 saturation is 92% on room air NIH score = 0 Glucose Accu-Chek 135 The patient is alert and oriented to person place and situation. Head atraumatic. Neck supple. Cranial nerves II through XII grossly intact. Pupils 3 to 4 mm round reactive to light and accommodation. Extraocular movements intact. Motor testing 5/5 bilaterally. Patient was able to arise from the CAT scanner table and stand and walk in sit on the gurney with minimal assistance from the CT radiology staff. Speech is clear. Patient denied any visual field deficits. There was no extinction on double sensory stimulation. There was no facial weakness. Speech was clear. Patient answered questions correctly. Throat clear. Lungs clear. Heart history of atrial fibrillation. Extremities were negative for cyanosis. Data 10/21/23 14:58 10/21/23 14:58 A&P Assessment and plan (1) TIA (transient ischemic attack): Impression: 1. Transient ischemic attack described as patient not responding while standing on his walker for 10 minutes with resolution of symptoms when the patient presented to the [facility] emergency department with NIH score = 0. Symptoms were reported to occur at 1:30 PM on 10/21/2023. Code stroke was initiated at 2:27 PM. Since the patient's NIH score = 0 and the patient is on Eliquis for anticoagulation, patient was not a candidate for intravenous thrombolytics and no intravenous thrombolytics were administered. 2. Atrial fibrillation treated with Eliquis 3. History of implanted loop recorder 4. History of sinus node dysfunction 5. History of mitral valve replacement with bioprosthetic valve 6. Chronic renal disease 7. Type 2 diabetes mellitus 8. Distal peripheral neuropathy 9. History of seizures Plan: 1. Recommend cardiac evaluation to assess for embolic source for TIA's 2. Seizure precautions and fall precautions 3. Follow NIH stroke protocol regarding lipid-lowering agents and antiplatelets/anticoagulation and cardiology's recommendations 4. Neurochecks and vital signs per NIH stroke protocol 5. Recommend speech therapy, Occupational Therapy and physical therapy evaluation 6. Give patient and patient's family stroke pamphlet 7. Consider obtaining surface EEG recording on an outpatient basis to assess for any subclinical seizure or inpatient if needed Consult Attestations 2 Medical Necessity Statement: The patient was evaluated by neurology for code stroke/acute care emergency department room #12 Coding Level of Care Code 59887 Diagnoses TIA (transient ischemic attack) G45.9
[2023-10-21 15:31] LABS: INR 1.28 (0.8-1.2)
[2023-10-21 15:32] LABS: Partial Thromboplastin Time 39.9 SECONDS (23.9-36.7)
[2023-10-21 15:38] LABS: Alanine Aminotransferase 26 U/L (0-41); Albumin Level 3.3 g/dL (3.5-5.2); Alkaline Phosphatase 72 U/L (40-130); Anion Gap 15.7 (5-19); Aspartate Amino Transferase 28 U/L (0-40); Blood Urea Nitrogen 26 mg/dL (8-23); Calcium 8.3 mg/dL (8.5-10.5); Carbon Dioxide 23 mmol/L (22-29); Chloride 100 mmol/L (98-107); Creatinine Clr Calc Pharmacy 48.5501; Glucose 125 mg/dL (65-115); Osmolality Calculated 286 mOsm/kg (285-295); Potassium 3.7 mmol/L (3.5-5.1); Sodium 135 mmol/L (136-145); Total Bilirubin 1.1 mg/dL (0.15-1.2); Total Protein 6.3 g/dL (6.6-8.7)
[2023-10-21 16:03] VITALS: BP 101/62; BP 88/49; BP 96/49; PULSE 52; PULSE 83; PULSE 89
[2023-10-21] MEDS: sodium chloride 0.9% 1,000 ML 999 ML IV (17:34)
[2023-10-21 18:05] LABS: Charge for UA Resulting for Rev
[2023-10-21 18:11] LABS: Bilirubin Urine Negative (Negative); Blood Urine Negative (Negative); Glucose Urine UA Negative (Normal); Ketones Urine 1+ (Negative); Leukocyte Esterase Urine Trace (Negative); Nitrate Urine Negative (Negative); Protein Urine 2+ (Negative); Specific Gravity, Urine 1.024 (1.005-1.030); Urine Appearance Clear (CLEAR); Urine Color Dark Yellow (Yellow); pH Urine 5.5 (5-7)
[2023-10-21 18:20] LABS: Amphetamines Screen Urine Negative (Negative); Barbiturates Screen Urine Negative (Negative); Benzodiazepines Screen Urine Negative (Negative); Cocaine Screen Urine Negative (Negative); Opiate Screen Urine Negative (Negative); PCP Screen Urine Negative (Negative); THC Screen Urine Positive (Negative)
[2023-10-21 18:22] LABS: Bacteria Urine None Seen /hpf; Hyaline Casts Urine 16.53 /lpf; RBC Urine 0-2 /hpf (0-2); Squamous Epithelial Cell Urine 0-5 /hpf (0-5); WBC Urine 0-5 /hpf (0-5)
[2023-10-21 18:54] LABS: Coarse Granular Casts Urine 0-4 /lpf; Fine Granular Casts Urine 0-4 /lpf
[2023-10-21 18:57] LABS: UA Slide Review UA Slide Review Perf
[2023-10-21 19:21] VITALS: BP 170/65; PULSE 84; TEMP 37.1; O2SAT 94
== END 2023-10-21 19:23 | disposition home or self-care (01) ==
PROVIDERS: Family Medicine; Emergency Provider Emergency Medicine
DX: G45.9 Transient cerebral ischemic attack, unspecified (principal); E86.0 Dehydration; Z79.85 Long-term (current) use of injectable non-insulin antidiabetic drugs; Z79.01 Long term (current) use of anticoagulants; Z79.82 Long term (current) use of aspirin; Z79.4 Long term (current) use of insulin; E11.22 Type 2 diabetes mellitus with diabetic chronic kidney disease; I13.0 Hypertensive heart and chronic kidney disease with heart failure and stage 1 through stage 4 chronic kidney disease, or unspecified chronic kidney disease; N18.9 Chronic kidney disease, unspecified; I50.9 Heart failure, unspecified; E78.5 Hyperlipidemia, unspecified; I25.10 Atherosclerotic heart disease of native coronary artery without angina pectoris; Z95.1 Presence of aortocoronary bypass graft
CPT/HCPCS: 36415; 36416; 70450; 80053; 80306; 81003; 81015; 82962; 85025; 85610; 85730; 93005; 99284; J7030

== ENCOUNTER → 2023-10-28 09:17 | Outpatient (BNVA) | payer OTHER, MEDICARE, SELFPAY | PROVIDERS: Visit Provider Internal Medicine Cardiovascular Disease | DX: Z45.09 Encounter for adjustment and management of other cardiac device (principal) | CPT/HCPCS: 93298 ==

== ENCOUNTER 2023-10-28 20:00 | Outpatient (CLI) | payer OTHER, MEDICARE, SELFPAY | END 2023-10-28 20:01 | disposition home or self-care (01) | LOC: SLEEP 22:48 | PROVIDERS: Visit Provider Emergency Medicine Emergency Medical Services | DX: G47.33 Obstructive sleep apnea (adult) (pediatric) (principal) | CPT/HCPCS: 95811 ==

== ENCOUNTER 2023-11-20 13:24 | Emergency (ER) | payer OTHER, MEDICARE, SELFPAY ==
[2023-11-20 13:46] VITALS: BP 135/76; PULSE 102; RESP 16; TEMP 36.5; O2SAT 95; BMI 29.1
--- NOTE | 2023-11-20 14:21 | XR_ITS ---
WS: [id number] XR elbow RT min 3V* [id number] REASON FOR EXAM: fall FINDINGS: No joint effusion. No acute fracture identified. The joint spaces of the elbow are intact and relatively well preserved. There is mild osteophytosis o f the olecranon and coronoid processes. The examination is unchanged compared to 07/09/2023. XR/XR elbow RT min 3V* [id number] IMPRESSION: No acute abnormality. Mild osteoarthritis.
--- NOTE | 2023-11-20 14:21 | CT_ITS ---
WS: [id number] CT HEAD TECHNIQUE: Noncontrast CT of the head obtained from the skullbase to the vertex. CLINICAL INFORMATION: fall/struck head COMPARISON: CT head 10/21/2023 DLP: 1167.[address] scans at [facility] use at least one of these dose optimization techniques: automated e xposure control; mA and/or kV adjustment per patient size (includes targeted exams where dose is matc hed to clinical indication); or iterative reconstruction. FINDINGS: No evidence of intracranial hemorrhage or mass effect. Ventricular system and basal cisterns are mane nt. Moderate small vessel changes with moderate parenchymal volume loss. No extra-axial fluid collect ions. No evidence of mass or mass effect. Vascular calcification Mild mucosal thickening paranasal sinuses. Fluid with air-fluid levels in the frontal sinuses compati ble with sinusitis. Mastoid air cells are well aerated. CT/CT head wo con* [id number] IMPRESSION: 1. No evidence of intracranial hemorrhage or mass effect. 2. No acute intracranial findings.
--- NOTE | 2023-11-20 14:22 | ED_ITS ---
HPI - Fall 2 General: Chief Complaint: Fall Stated Complaint: fall Time Seen by Provider: 11/20/23 14:10 Source: patient Mode of arrival: EMS Limitations: no limitations History of Present Illness: Patient is an 83-year-old male who presents to ED today via EMS for evaluation following a fall. Patient states he tripped over a [employer] toy and fell and struck the superior portion of his scalp. No LOC. He is not on anticoagulation. He has no neck or back pain. He also sustained an abrasion to his right elbow. States he is not having any other discomforts from the fall at this time. He arrives and appears in no acute distress. MD complaint: fall Onset (ago): hour(s) Fall from: standing Fall witnessed: no Place fall occurred: home Loss of consciousness: None Prolonged down time: no Symptoms prior to fall: none Context: tripped/slipped Location of injury: head Location of injury - extremities: Right: elbow Severity: mild Associated symptoms-after fall: Reports no associated symptoms; Denies abdominal pain, chest pain, headache(s), hematuria, lightheadedness or neck pain Related Data Home Medications Medication Instructions Recorded Confirmed atorvastatin 80 mg tablet 80 mg PO QPM 03/31/19 07/30/23 calcium polycarbophil 625 mg tablet 1,250 mg PO DAILY 03/31/19 07/30/23 magnesium oxide 400 mg (241.3 mg 400 mg PO BID 03/31/19 07/30/23 magnesium) tablet (MagOx) omeprazole 20 mg tablet,delayed 20 mg PO BID 03/31/19 07/30/23 release cholecalciferol (vitamin D3) 50 2,000 unit PO QPM 02/14/20 07/30/23 mcg (2,000 unit) tablet (Vitamin D3) aspirin 81 mg tablet,delayed 81 mg PO BEDTIME 07/20/20 07/30/23 release finasteride 5 mg tablet 5 mg PO QPM 07/20/20 07/30/23 duloxetine 20 mg capsule,delayed 40 mg PO DAILY 09/05/22 07/30/23 release memantine 5 mg tablet 5 mg PO BID 09/05/22 07/30/23 semaglutide 0.25 mg or 0.5 mg (2 0.5 mg SUBCUT Q7D 09/05/22 07/30/23 mg/3 mL) subcutaneous pen injector (Ozempic) buspirone 10 mg tablet 5 mg PO TID 04/14/23 07/30/23 pyridoxine (vitamin B6) 100 mg 100 mg PO QAM 04/14/23 07/30/23 tablet (Vitamin B-6) vitamin B complex 2 tab PO QAM 04/14/23 07/30/23 acetaminophen 500 mg tablet 500 mg PO QID PRN Pain 07/09/23 07/30/23 carvedilol 3.125 mg tablet 3.125 mg PO BID 07/09/23 07/30/23 fluoride (sodium) 1.1 % dental 1 applic dental DAILY 07/09/23 07/30/23 cream (Sodium Fluoride 5000 Plus) furosemide 40 mg tablet 40 mg PO QAM PRN Edema 07/09/23 07/30/23 midodrine 10 mg tablet 10 mg PO TID PRN LOW BLOOD 07/09/23 07/30/23 omega 9-mwa-upa-fish oil 1,000 mg 1 cap PO BID 07/09/23 07/30/23 (120 mg-180 mg) capsule (Fish Oil) potassium chloride 20 mEq 20 meq PO DAILY PRN with lasix 07/09/23 07/30/23 tablet,extended release(part/cryst) insulin glargine 100 unit/mL 20 unit SUBCUT BEDTIME 07/30/23 07/30/23 subcutaneous solution (Lantus U-100 Insulin) Previous Rx's Medication Instructions Recorded tamsulosin 0.4 mg capsule 0.4 mg PO BID #180 caps 09/27/20 albuterol sulfate 90 mcg/actuation 2 inh inhalation Q4H PRN shortness 04/04/23 aerosol inhaler of breath or wheezing #6.7 grams diabetic shoes with 3 inserts #1 ea 05/29/23 apixaban 5 mg tablet (Eliquis) See Rx Instructions .Route 08/05/23 .COMPLEX #90 tabs Allergies Allergy/AdvReac Type Severity Reaction Status Date / Time lisinopril Allergy ALGY-Rash Verified 11/20/23 13:54 Review of Systems 2 Eyes: Denies: change in vision, blurry vision, photophobia, eye discharge, floaters or seeing flashes ENMT: Denies: throat pain, odynophagia, ear or mastoid pain, ear discharge, nasal discharge, epistaxis or sinus pain Card: Denies: chest pain, palpitations, lightheadedness, syncope or pre- syncope Resp: Denies: dyspnea or pain on inspiration GI: Denies: abdominal pain : Denies: flank pain or hematuria Musc: Reports: joint pain (R elbow-minimal); Denies: neck pain, back pain, extremity pain, extremity swelling or joint swelling Skin/Breast: Reports: other (abrasion scalp/R elbow) Neuro: Denies: headache(s), numbness in extremities, weakness in extremities, sensory changes or dizziness PFSH ED 2 PFSH: Medical History Depression Chronic kidney disease Hyperlipidemia Atrial fibrillation Urgency incontinence Benign prostatic hyperplasia with lower urinary tract symptoms Urolithiasis Carotid bruit Syncope Diabetes mellitus Hypertension CHF (congestive heart failure) CAD (coronary artery disease) This patient had a coronary bypass surgery in 2008 along with a mitral valve repair and a maze procedure, at the [facility] in [place]. Surgical History History of tonsillectomy and adenoidectomy History of loop recorder placed late 2020 or early 2021 H/O carpal tunnel repair bilateral S/P trigger finger release History of maze procedure History of mitral valve replacement with bioprosthetic valve S/P ureteral stent placement Hx of CABG Family History Mother , AT AGE 86 No problems noted. Father , AT AGE 65 Stroke Other Hyperlipidemia Hypertension Social History Smoking and tobacco/nicotine status: unknown if used tobacco/nicotine Alcohol intake: never Substance/Drug Use: never Lives independently: Yes Marital status: / Current occupational status: retired Physical Exam 2 Const: COMMON NORMALS: no acute distress, average body habitus, patient oriented x3, no limitations, healthy appearing, alert and well nourished G ENERAL APPEARANCE: cooperative ORIENTATION/CONSCIOUSNESS: Yes awake, Yes oriented to person, Yes oriented to place and Yes oriented to time HENMT: COMMON NORMALS: normocephalic and TM's normal bilaterally HEAD & SCALP: normal to inspection and normocephalic; no Gerard's sign, no hematoma and no raccoon eyes HEAD IMAGES: 1. minor abrasion FACE & SINUS: normal facial exam TYMPANIC MEMBRANE: TM's normal bilaterally MOUTH: other (no intraoral injuries noted) Eye: COMMON NORMALS: Equal, round and reactive pupils present and EOMs intact bilaterally GENERAL EYE: appearance normal, both eyes and all related structures and normal light reflex PUPIL: Yes Equal, round and reactive pupils present DIRECT OPHTHALMOSCOPY: Yes normal light reflex Neck/C-Spine: COMMON NORMALS: full ROM GENERAL: Yes normal visual inspection CERVICAL SPINE: Yes cervical ROM normal, No pain with cervical ROM, No Cervical spine tenderness, No step off deformity and No Paracervical muscle tenderness Chest: COMMONS NORMALS: normal inspection of the chest and normal palpation of entire chest wall Resp: COMMON NORMALS: normal respiratory effort and clear to auscultation bilaterally AUSCULTATION: clear to auscultation bilaterally Cardio: COMMON NORMALS: regular rate and regular rhythm RATE: regular rate RHYTHM: regular rhythm GI: COMMON NORMALS: Normal to inspection, nondistended, normoactive bowel sounds present, Soft to palpation, non-tender, No hepatosplenomegaly present and no masses INSPECTION: Yes normal to inspection and No abdominal wall ecchymosis AUSCULTATION: Yes normoactive bowel sounds PALPATION: Yes Soft to palpation and Yes No hepatosplenomegaly present Back/Pelvis: COMMON NORMALS: thoracic and lumbar spine normal to inspection, no thoracic nor lumbar tenderness and thoraco-lumbar ROM normal Extremity: COMMON NORMALS: full ROM GENERAL: Yes normal exam except as noted RIGHT UPPER EXTREMITY: Yes elbow joint (minor abrasion; fairly normal ROM) Right elbow: Yes palpation (normal) and Yes neurovascular exam (normal) Neuro: LANDY COMA SCALE: document GCS findings [place] coma scale eye opening: Spontaneous [place] coma scale verbal response: Orientated [place] coma scale motor response: Obey commands [place] coma scale total score: 15 COMMON NORMALS: patient oriented x3, moves all extremities, no focal motor deficits and no sensory deficits noted SENSORIUM/ORIENTATION: Yes alert, Yes oriented to person, Yes oriented to place and Yes oriented to time SPEECH: speech normal GAIT: Yes Normal gait present Skin: COMMON NORMALS: no rashes or lesions noted GENERAL SKIN EXAM: no rashes or lesions noted TRAUMA: abrasion and no lacerations Course 2 Vital Signs: Vital signs: Vital Signs Temperature 97.7 F 11/20/23 13:46 Pulse Rate 102 H 11/20/23 13:46 Respiratory Rate 16 11/20/23 13:46 Blood Pressure 135/76 11/20/23 13:46 Pulse Oximetry 95 11/20/23 13:46 Oxygen Delivery Me thod Room Air 11/20/23 13:46 MDM - Fall Medical Decision Making CT head/R elbow XR is are unremarkable. Patient's tetanus was updated. He will be allowed discharge with return precautions. Lab Data Radiology Impressions Elbow X-Ray 11/20/23 14:21 IMPRESSION: No acute abnormality. Mild osteoarthritis. Head CT 11/20/23 14:21 IMPRESSION: 1. No evidence of intracranial hemorrhage or mass effect. 2. No acute intracranial findings. All radiology interpretation(s) finalized by discharge Discharge Plan Discharge Patient Disposition: Home Clinical Impression: Fall on same level from tripping Contusion of scalp Qualifiers: Encounter type: initial encounter Qualified Code(s): S00.03XA - Contusion of scalp, initial encounter Abrasion of elbow, right Qualifiers: Encounter type: initial encounter Qualified Code(s): S50.311A - Abrasion of right elbow, initial encounter Condition: Stable Prescriptions: No Action tamsulosin 0.4 mg capsule 0.4 mg PO BID Qty: 180 3RF memantine 5 mg tablet 5 mg PO BID duloxetine 20 mg capsule,delayed release(DR/EC) 40 mg PO DAILY Ozempic 0.25 mg or 0.5 mg (2 mg/3 mL) pen injector 0.5 mg SUBCUT Q7D Rx Instructions: ON THURSDAY (DME) diabetic shoes with 3 inserts See Rx Instructions .Route .MEDSUPPLY Qty: 1 0RF Rx Instructions: As directed to the shoe guys Eliquis 5 mg tablet See Rx Instructions .ROUTE .COMPLEX Qty: 90 3RF Dose Instruction: TAKE ONE-HALF TABLET BY MOUTH TWICE A DAY FOR ATRIAL FIBRILLATION. THIS TABLET IS TO BE CUT IN HALF FOR YOUR DOSE Rx Instructions: TAKE ONE-HALF TABLET BY MOUTH TWICE A DAY FOR ATRIAL FIBRILLATION. THIS TABLET IS TO BE CUT IN HALF FOR YOUR DOSE atorvastatin 80 mg Tablet 80 mg PO QPM magnesium oxide [MagOx] 400 mg (241.3 mg magnesium) Tablet 400 mg PO BID calcium polycarbophil 625 mg Tablet 1,250 mg PO DAILY omeprazole 20 mg Tablet,Delayed Release (Dr/Ec) 20 mg PO BID cholecalciferol (vitamin D3) [Vitamin D3] 50 mcg (2,000 unit) tablet 2,000 unit PO QPM aspirin 81 mg Tablet,Delayed Release (Dr/Ec) 81 mg PO BEDTIME finasteride 5 mg Tablet 5 mg PO QPM buspirone 10 mg Tablet 5 mg PO TID vitamin B complex Tablet 2 tab PO QAM pyridoxine (vitamin B6) [Vitamin B-6] 100 mg Tablet 100 mg PO QAM furosemide 40 mg tablet 40 mg PO QAM PRN (Reason: Edema) acetaminophen 500 mg Tablet 500 mg PO QID PRN (Reason: Pain) carvedilol 3.125 mg Tablet 3.125 mg PO BID Rx Instructions: must administer with a meal/food potassium chloride 20 mEq tablet,ER particles/crystals 20 meq PO DAILY PRN (Reason: with lasix) midodrine 10 mg tablet 10 mg PO TID PRN (Reason: LOW BLOOD) fluoride (sodium) [Sodium Fluoride 5000 Plus] 1.1 % Cream 1 applic DENTAL DAILY omega 8-xme-zgd-fish oil [Fish Oil] 1,000 mg (120 mg-180 mg) Capsule 1 cap PO BID albuterol sulfate 90 mcg/actuation HFA aerosol inhaler 2 inh INHALATION Q4H PRN (Reason: shortness of breath or wheezing) Qty: 6.7 1RF Lantus U-100 Insulin 100 unit/mL solution 20 unit SUBCUT BEDTIME Discharge Orders: Discharge ED (Routine); Ordered 11/20/23 Ordered By: Kika Spaulding Activity Restrictions/Additional Instructions: Your CT head and elbow x-rays are unremarkable. Please keep abrasions clean with warm soap and water. Monitor for signs of infection such as redness, swelling, streaking, fevers, drainage. Please seek medical reevaluation if these occur. You may return to the emergency department for severe headache, neck pain, back pain, or any other concerns you may have. Coding Level of Care Code ED Bundle Helper for Nathaniel Alicea
[2023-11-20] MEDS: tetanus-dipt-pertussis 0.5 mL SDV IM (14:49)
--- NOTE | 2023-11-20 15:58 | XR_ITS ---
WS: [id number] XR hip LT 2-3V wo/w pel* [id number] REASON FOR EXAM: fall; one view pelvis too please FINDINGS: Superior and inferior pubic rami are intact no fracture. Femoral head and neck are intact with no fracture. Trochanters and proximal femoral shaft intact with no fracture. 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 XR/XR hip LT 2-3V wo/w pel* [id number] IMPRESSION: No acute abnormality.
[2023-11-20 16:52] VITALS: BP 121/77; PULSE 73; RESP 16; O2SAT 96
== END 2023-11-20 16:51 | disposition home or self-care (01) ==
PROVIDERS: Emergency Provider Physician Assistant
DX: S00.03XA Contusion of scalp, initial encounter (principal); S50.311A Abrasion of right elbow, initial encounter; Z79.85 Long-term (current) use of injectable non-insulin antidiabetic drugs; Z79.01 Long term (current) use of anticoagulants; Z79.82 Long term (current) use of aspirin; Z79.4 Long term (current) use of insulin; Z95.1 Presence of aortocoronary bypass graft; I13.0 Hypertensive heart and chronic kidney disease with heart failure and stage 1 through stage 4 chronic kidney disease, or unspecified chronic kidney disease; E11.22 Type 2 diabetes mellitus with diabetic chronic kidney disease; N18.9 Chronic kidney disease, unspecified; I50.9 Heart failure, unspecified; E78.5 Hyperlipidemia, unspecified; I25.10 Atherosclerotic heart disease of native coronary artery without angina pectoris; W18.09XA Striking against other object with subsequent fall, initial encounter; Z23 Encounter for immunization
CPT/HCPCS: 70450; 73080; 73502; 90715; 99284

== ENCOUNTER 2023-11-23 16:30 | Outpatient (CLI) | payer OTHER, MEDICARE, SELFPAY ==
[2023-11-23 17:10] LABS: Basophils # 0.1 10^3/uL (0.0-0.1); Basophils % 0.7 %; Eosinophils # 0.2 10^3/uL (0.0-0.8); Eosinophils % 2.5 %; Hematocrit 38.6 % (37-53); Lymphocytes # 1.9 10^3/uL (0.8-4.8); Mean Corpuscular HGB Conc 33.2 g/dL (30-55); Mean Corpuscular Hemoglobin 31.6 pg (27-33); Mean Corpuscular Volume 95.3 fl (82-101); Mean Platelet Volume 8.9 fL (7.4-10.4); Monocytes # 0.6 10^3/uL (0.2-0.9); Monocytes % 7.4 %; Neutrophils % 66.9 %; Nucleated Red Blood Cells % 0 %; Platelet Count 177 10^3/cmm (157-399); Red Blood Count 4.05 10^6/uL (3.85-5.65); Red Cell Distribution Width 14.6 % (12.1-15.1); White Blood Count 8.67 10^3/uL (3.29-11.43)
[2023-11-23 17:21] LABS: Urine Creatinine 133 mg/dL (39-259); Urine Protein Random 14 mg/dL
[2023-11-23 17:22] LABS: UPRO/UCREAT Ratio 0.11 mg/mg CR
[2023-11-23 18:26] LABS: Calcium 9.3 mg/dL (8.5-10.5); Parathyroid Hormone 51.2 pg/mL (15-65)
[2023-11-23 18:35] LABS: 25 Hydroxy Vitamin D 45 ng/mL (30-100); Albumin Level 3.7 g/dL (3.5-5.2); Anion Gap 13.1 (5-19); Blood Urea Nitrogen 31 mg/dL (8-23); Calcium 9.3 mg/dL (8.5-10.5); Carbon Dioxide 28 mmol/L (22-29); Chloride 97 mmol/L (98-107); Glucose 185 mg/dL (65-115); Phosphorus 4.3 mg/dL (2.5-4.5); Potassium 4.1 mmol/L (3.5-5.1); Sodium 134 mmol/L (136-145)
== END 2023-11-23 16:31 | disposition home or self-care (01) ==
PROVIDERS: Visit Provider Registered Nurse
DX: N18.32 Chronic kidney disease, stage 3b (principal)
CPT/HCPCS: 80069; 82306; 82310; 82570; 83970; 84156; 85025

== ENCOUNTER 2023-12-26 17:08 | Emergency (ER) | payer OTHER, MEDICARE, SELFPAY ==
[2023-12-26 17:09] VITALS: BP 170/108; PULSE 71; RESP 16; TEMP 36.5; O2SAT 99; BMI 29.5
--- NOTE | 2023-12-26 17:12 | CTR_ITS ---
PROCEDURE INFORMATION: Exam: CT Head Without Contrast Exam date and time: 12/26/2023 5:26 PM Age: 83 years old Clinical indication: Injury or trauma; Fall; Blunt trauma (contusions or hematomas) and concussion/head injury; Without loss of consciousness; Additional info: Fall, head injury TECHNIQUE: Imaging protocol: Computed tomography of the head without contrast. Radiation optimization: All CT scans at this facility use at least one of these dose optimization techniques: automated exposure control; mA and/or kV adjustment per patient size (includes targeted exams where dose is matched to clinical indication); or iterative reconstruction. COMPARISON: CT head wo con* [id number] 11/20/2023 2:50 PM RADIATION DOSE METRICS: Total DLP (mGy-cm): 1158.2 FINDINGS: Brain: Along the anterior interhemispheric fissure to the left of midline there is a small area of increased density measuring approximately 6 mm (image 58, series 6 and image 36, series 2). This appears new from prior comparison concerning for a small subdural or focus of subarachnoid hemorrhage. There is patchy hypoattenuation in the periventricular white matter. While nonspecific, this is favored to represent chronic small vessel ischemic change. There is mild cerebral volume loss with associated mild prominence of the CSF spaces. No intracranial mass or mass effect. No midline shift. No sulcal effacement.Normal ramirez-white matter differentiation. Cerebral ventricles: The ventricles appear enlarged, in proportion to the mild parenchymal volume loss. Paranasal sinuses: Moderate paranasal sinus disease in the frontal sinuses and anterior ethmoid air cells. Minimal mucosal disease along the floor of the maxillary sinuses. Mastoid air cells: Visualized mastoid air cells are clear. Auditory system: Minimal debris in the left external auditory canal. Bones: Osseous calvarium appears intact. No fracture is seen. Soft tissues: The visualized superficial soft tissues have a normal appearance. Vasculature: There is calcific atherosclerosis within the cavernous carotids. CT/CT head wo con* [id number] IMPRESSION: 1. Small 6 mm focus of increased density to the left of midline along the anterior interhemispheric fissure which is new from prior comparison. Findings concerning for small focus of subdural or focal subarachnoid hemorrhage. 2. Chronic senescent changes as above. 3. Paranasal sinus disease.
--- NOTE | 2023-12-26 17:13 | CTR_ITS ---
PROCEDURE INFORMATION: Exam: CT Cervical Spine Without Contrast Exam date and time: 12/26/2023 5:26 PM Age: 83 years old Clinical indication: Injury or trauma; Fall; Blunt trauma; Additional info: Fall, neck pain TECHNIQUE: Imaging protocol: Computed tomography of the cervical spine without contrast. Radiation optimization: All CT scans at this facility use at least one of these dose optimization techniques: automated exposure control; mA and/or kV adjustment per patient size (includes targeted exams where dose is matched to clinical indication); or iterative reconstruction. COMPARISON: CT cervical spin wo con* [id number] 09/11/2023 1:46 PM RADIATION DOSE METRICS: Total DLP (mGy-cm): 1134.3 FINDINGS: Bones: Normal craniocervical and atlantoaxial alignment. The odontoid process is intact. There is no evidence of increased density within the spinal canal to suggest hemorrhage. Normal alignment of the cervical spine vertebral bodies and facets without evidence of listhesis or skipped/perched facet. Moderate cervical spondylosis throughout most severe at the C4 through C7 levels with associated loss of the intervertebral disc space at C4-C5 and partial vertebral body fusion on the left at C6-C7. There is facet arthrosis throughout with facet fusion on the right at C2-C3. No cervical spinal fracture is seen. No aggressive osseous lesion. Mastoid air cells: Visualized mastoid air cells are clear. Auditory system: There is debris in the left external auditory canal. Prevertebral and retropharyngeal spaces: The prevertebral soft tissues are normal in thickness. Lungs: Incidental pulmonary air cyst in the right lung apex measuring approximately 8 mm. Lung apices are otherwise clear. Esophagus: Partially imaged layering in the esophagus with fatty density. Vasculature: There is atherosclerotic calcification in the carotids. Soft tissues: The visualized superficial soft tissues have a normal appearance. CT/CT cervical spin wo con* [id number] IMPRESSION: 1. No evidence of a cervical spinal fracture or traumatic malalignment. 2. Moderate diffuse cervical spondylosis. 3. Partially imaged layering in the esophagus with fatty density.
--- NOTE | 2023-12-26 17:20 | W.ED.HEATRA ---
HPI - Head Injury General: Chief complaint: Head Injury Stated complaint: head pain s/p fall Time Seen by Provider: 12/26/23 17:09 History of Present Illness: 83-year-old man who presents emergency room by ambulance after he fell and hit his head. He is on aspirin only as far as anticoagulation goes. No loss of consciousness. He has chronic neck pain and it does not seem to be any worse. No nausea or vomiting. Apparently he was transferring to his electric chair and fell. Currently complains of some mild head pain only. He also has a skin tear on his left elbow. No chest pain. No shortness of breath. No abdominal pain. Related Data Home Medications Medication Instructions Recorded Confirmed atorvastatin 80 mg tablet 80 mg PO QPM 03/31/19 07/30/23 calcium polycarbophil 625 mg tablet 1,250 mg PO DAILY 03/31/19 07/30/23 magnesium oxide 400 mg (241.3 mg 400 mg PO BID 03/31/19 07/30/23 magnesium) tablet (MagOx) omeprazole 20 mg tablet,delayed 20 mg PO BID 03/31/19 07/30/23 release cholecalciferol (vitamin D3) 50 2,000 unit PO QPM 02/14/20 07/30/23 mcg (2,000 unit) tablet (Vitamin D3) aspirin 81 mg tablet,delayed 81 mg PO BEDTIME 07/20/20 07/30/23 release finasteride 5 mg tablet 5 mg PO QPM 07/20/20 07/30/23 duloxetine 20 mg capsule,delayed 40 mg PO DAILY 09/05/22 07/30/23 release memantine 5 mg tablet 5 mg PO BID 09/05/22 07/30/23 semaglutide 0.25 mg or 0.5 mg (2 0.5 mg SUBCUT Q7D 09/05/22 07/30/23 mg/3 mL) subcutaneous pen injector (Ozempic) buspirone 10 mg tablet 5 mg PO TID 04/14/23 07/30/23 pyridoxine (vitamin B6) 100 mg 100 mg PO QAM 04/14/23 07/30/23 tablet (Vitamin B-6) vitamin B complex 2 tab PO QAM 04/14/23 07/30/23 acetaminophen 500 mg tablet 500 mg PO QID PRN Pain 07/09/23 07/30/23 carvedilol 3.125 mg tablet 3.125 mg PO BID 07/09/23 07/30/23 fluoride (sodium) 1.1 % dental 1 applic dental DAILY 07/09/23 07/30/23 cream (Sodium Fluoride 5000 Plus) furosemide 40 mg tablet 40 mg PO QAM PRN Edema 07/09/23 07/30/23 midodrine 10 mg tablet 10 mg PO TID PRN LOW BLOOD 07/09/23 07/30/23 omega 9-dvd-ykn-fish oil 1,000 mg 1 cap PO BID 07/09/23 07/30/23 (120 mg-180 mg) capsule (Fish Oil) potassium chloride 20 mEq 20 meq PO DAILY PRN with lasix 07/09/23 07/30/23 tablet,extended release(part/cryst) insulin glargine 100 unit/mL 20 unit SUBCUT BEDTIME 07/30/23 07/30/23 subcutaneous solution (Lantus U-100 Insulin) Previous Rx's Medication Instructions Recorded tamsulosin 0.4 mg capsule 0.4 mg PO BID #180 caps 09/27/20 albuterol sulfate 90 mcg/actuation 2 inh inhalation Q4H PRN shortness 04/04/23 aerosol inhaler of breath or wheezing #6.7 grams diabetic shoes with 3 inserts #1 ea 05/29/23 apixaban 5 mg tablet (Eliquis) See Rx Instructions .Route 08/05/23 .COMPLEX #90 tabs Allergies Allergy/AdvReac Type Severity Reaction Status Date / Time lisinopril Allergy ALGY-Rash Verified 11/20/23 13:54 Review of Systems Narrative: Constitutional symptoms: Negative except as documented in HPI. Skin symptoms: Negative except as documented in HPI. Eye symptoms: Negative except as documented in HPI. ENMT symptoms: Negative except as documented in HPI. Respiratory symptoms: Negative except as documented in HPI. Cardiovascular symptoms: Negative except as documented in HPI. Gastrointestinal symptoms: Negative except as documented in HPI. Genitourinary symptoms: Negative except as documented in HPI. Musculoskeletal symptoms: Negative except as documented in HPI. Neurologic symptoms: Negative except as documented in HPI. Psychiatric symptoms: Negative except as documented in HPI. Endocrine symptoms: Negative except as documented in HPI. PFSH ED PFSH: Medical History Depression Chronic kidney disease Hyperlipidemia Atrial fibrillation Urgency incontinence Benign prostatic hyperplasia with lower urinary tract symptoms Urolithiasis Carotid bruit Syncope Diabetes mellitus Hypertension CHF (congestive heart failure) CAD (coronary artery disease) This patient had a coronary bypass surgery in 2008 along with a mitral valve repair and a maze procedure, at the [facility] in [place]. Surgical History History of tonsillectomy and adenoidectomy History of loop recorder placed late 2020 or early 2021 H/O carpal tunnel repair bilateral S/P trigger finger release History of maze procedure History of mitral valve replacement with bioprosthetic valve S/P ureteral stent placement Hx of CABG Family History Mother , AT AGE 86 No problems noted. Father , AT AGE 65 Stroke Other Hyperlipidemia Hypertension Social History Smoking and tobacco/nicotine status: unknown if used tobacco/nicotine Alcohol intake: never Substance/Drug Use: never Lives independently: Yes Marital status: / Current occupational status: retired Physical Exam Narrative: EXAM NARRATIVE: General: Alert, no acute distress. Skin: Warm, dry. Skin tear on left arm. Head: Normocephalic, atraumatic. No obvious hematomas. Neck: Supple, trachea midline. Eye: Extraocular movements are intact. Ears, nose, mouth and throat: mucosa moist. Cardiovascular: Regular, Normal peripheral perfusion. Respiratory: Lungs are clear to auscultation, respirations are non-labored, breath sounds are equal, Symmetrical chest wall expansion. Gastrointestinal: Soft, Nontender, Non distended Musculoskeletal: Normal ROM, no deformity. Neurological: Alert and oriented, No focal neurological deficit observed. Psychiatric: Cooperative, appropriate mood & affect. Course Vital Signs: Vital signs: Vital Signs Temperature 97.7 F 12/26/23 17:09 Pulse Rate 71 12/26/23 17:09 Respiratory Rate 16 12/26/23 17:09 Blood Pressure 170/108 12/26/23 17:09 Pulse Oximetry 99 12/26/23 17:09 Oxygen Delivery Me thod Room Air 12/26/23 17:09 MDM - Head Injury Medcial Decision Making CT head: 6 mm focus that may be subarachnoid or subdural hematoma. Anterior interhemispheric fissure. This was not present a month ago. no evidence of acute fracture.This was reviewed and interpreted by myself the ER physician. CT of the cervical spine: No fracture. Good alignment. No step-offs. This was reviewed and interpreted by myself the emergency room physician. I also reviewed the radiologist report. Assessment and plan: Subdural hematoma Fall -Patient accepted to the emergency room at [facility] -Patient being transferred to tertiary care for evaluation by neurosurgery. - Discussed findings and plan with patient. Answered any questions. - Evaluation and treatment of this problem were appropriate in the emergency setting Lab Data Radiology Impressions Head CT 12/26/23 17:12 IMPRESSION: 1. Small 6 mm focus of increased density to the left of midline along the anterior interhemispheric fissure which is new from prior comparison. Findings concerning for small focus of subdural or focal subarachnoid hemorrhage. 2. Chronic senescent changes as above. 3. Paranasal sinus disease. ADDENDUM: 12/26/231811 THIS REPORT CONTAINS FINDINGS THAT MAY BE CRITICAL TO PATIENT CARE. The findings were verbally communicated by me via telephone conference to KISHOR PRECIADO at 6:10 PM CDT on 12/26/2023. The findings were acknowledged and understood. Cervical Spine CT 12/26/23 17:13 IMPRESSION: 1. No evidence of a cervical spinal fracture or traumatic malalignment. 2. Moderate diffuse cervical spondylosis. 3. Partially imaged layering in the esophagus with fatty density. All radiology interpretation(s) finalized by discharge Discharge Plan Discharge Patient Disposition: Xfer Short-Term Hosp Clinical Impression: Subdural hematoma Condition: Stable Coding Level of Care Code ED Media Assistant for Nathaniel Alicea
[2023-12-26 18:44] LABS: Basophils % 0.4 %; Eosinophils # 0.2 10^3/uL (0.0-0.8); Eosinophils % 1.8 %; Lymphocytes # 1.3 10^3/uL (0.8-4.8); Lymphocytes % 13.8 %; Mean Corpuscular Hemoglobin 30.9 pg (27-33); Mean Corpuscular Volume 93.7 fl (82-101); Mean Platelet Volume 9.5 fL (7.4-10.4); Monocytes # 0.6 10^3/uL (0.2-0.9); Monocytes % 5.8 %; Neutrophils # 7.55 10^3/uL (1.8-7.7); Nucleated Red Blood Cells % 0 %; Platelet Count 151 10^3/cmm (157-399); Red Blood Count 4.27 10^6/uL (3.85-5.65); Red Cell Distribution Width 13.8 % (12.1-15.1); White Blood Count 9.67 10^3/uL (3.29-11.43)
[2023-12-26 18:55] LABS: INR 1.23 (0.8-1.2)
[2023-12-26 18:56] LABS: Partial Thromboplastin Time 37.8 SECONDS (23.9-36.7)
[2023-12-26 19:00] LABS: Alanine Aminotransferase 23 U/L (0-41); Albumin Level 3.8 g/dL (3.5-5.2); Alkaline Phosphatase 110 U/L (40-130); Anion Gap 11.5 (5-19); Aspartate Amino Transferase 16 U/L (0-40); Blood Urea Nitrogen 28 mg/dL (8-23); Calcium 9.3 mg/dL (8.5-10.5); Carbon Dioxide 29 mmol/L (22-29); Chloride 101 mmol/L (98-107); Globulin 2.8 g/dL (1.3-4.6); Glucose 217 mg/dL (65-115); Osmolality Calculated 296 mOsm/kg (285-295); Potassium 4.5 mmol/L (3.5-5.1); Sodium 137 mmol/L (136-145); Total Bilirubin 0.5 mg/dL (0.15-1.2); Total Protein 6.6 g/dL (6.6-8.7)
[2023-12-26 20:30] VITALS: BP 116/83; PULSE 94; RESP 16; O2SAT 97
[2023-12-26 22:48] VITALS: BP 162/92; PULSE 95; RESP 16; O2SAT 99
== END 2023-12-26 23:02 | disposition short-term general hospital (02) ==
PROVIDERS: Emergency Provider Emergency Medicine
DX: S06.5X0A Traumatic subdural hemorrhage without loss of consciousness, initial encounter (principal); W19.XXXA Unspecified fall, initial encounter; E11.22 Type 2 diabetes mellitus with diabetic chronic kidney disease; I13.0 Hypertensive heart and chronic kidney disease with heart failure and stage 1 through stage 4 chronic kidney disease, or unspecified chronic kidney disease; N18.9 Chronic kidney disease, unspecified; I50.9 Heart failure, unspecified; I25.10 Atherosclerotic heart disease of native coronary artery without angina pectoris; Z95.1 Presence of aortocoronary bypass graft
CPT/HCPCS: 36415; 70450; 72125; 80053; 85025; 85610; 85730; 99284; 99291

== ENCOUNTER 2024-02-29 13:05 | Outpatient (CLI) | payer OTHER, SELFPAY ==
--- NOTE | 2024-02-29 13:07 | USCV_ITS ---
Marcello Jose Age: 83 Gender: M : 1940 Exam Date: 02/29/2024 13:19 Ordering Phys: Lena Orellana MD Technologist: CT Exam Location: [facility] [place]_ Indication: BP: 141 / 81 HR: 77 Rhythm: Sinus Technical Quality: Adequate MEASUREMENTS (Male / Female) Normal Values 2D ECHO LV Ejection Fraction MOD 4C 37.8 % LV Ejection Fraction MOD 2C 55.4 % LV Ejection Fraction 2C AL 57.5 % LA Diameter 5.6 cm RA Systolic Volume 4C AL 100.2 ml RA Systolic Volume 4C MOD 93.7 ml LA Sys Volume AL 73.2 cm cubed LA Sys Volume Index AL 34.5 cm cubed/m squared Aorta at Sinotubular Diameter 2.4 cm M-MODE LA Ao Ratio MM 1.8 AV Cusp Separation MM 2.1 cm DOPPLER AV Peak Velocity 141.0 cm/s LVOT Peak Velocity 79.0 cm/s AV Area Cont Eq vti 3.0 cm squared AV Area Cont Eq pk 2.4 cm squared MV Peak Velocity 145.0 cm/s MV Area PHT 3.2 cm squared Mitral E to A Ratio 399.0 TR Peak Velocity 403.5 cm/s TR Peak Gradient 65.1 mmHg TR Mean Velocity 314.0 cm/s TR Mean Gradient 42.6 mmHg TR Velocity Time Integral 98.2 cm TV Peak E Velocity 78.0 cm/s PV Peak Velocity 129.0 cm/s FINDINGS Left Ventricle Hypokinetic basal inferior wall segment. Mild diffuse hypokinesis of the inferolateral wall segment. LV ejection fraction of 45%.Grade III/IV diastolic dysfunction (restrictive filling pattern), severely elevated filling pressures. Right Ventricle The right ventricle is normal in size and function. Right Atrium Mildly increased right atrial size Left Atrium Moderately increased left atrial size. Mitral Valve Moderate mitral annular calcification. Mild-moderate mitral valve regurgitation. Aortic Valve Trace aortic valve regurgitation. Tricuspid Valve Mild tricuspid valve regurgitation. Estimated pulmonary artery peak systolic pressure 46 mmHg Pulmonic Valve No gross abnormalities noted Pericardium Normal pericardium without effusion. Aorta Normal ascending aorta dimension. IVC Inferior vena cava not visualized. CONCLUSIONS Multiple wall motion abnormalities with a diminished ejection fraction of 45%. Grade III/IV diastolic dysfunction (restrictive filling pattern), severely elevated filling pressures. Moderately increased left atrial size. Moderate mitral annular calcification. Mild-moderate mitral valve regurgitation. Trace aortic valve regurgitation. Mild tricuspid valve regurgitation. Estimated pulmonary artery peak systolic pressure 46 mmHg. There is no pericardial effusion. There are no intracardiac masses. Comparison with the previous study is difficult because of the difference in the technical quality. Dr Pippa Zimmerman MD [facility] (Electronically Signed) Final Date: 01 March 2024 18:00 S
== END 2024-02-29 13:06 | disposition home or self-care (01) ==
LOC: RAD 13:05
PROVIDERS: PCP Family Medicine; Visit Provider Family Medicine
DX: I50.30 Unspecified diastolic (congestive) heart failure (principal); I51.7 Cardiomegaly; I34.0 Nonrheumatic mitral (valve) insufficiency; I34.81 Nonrheumatic mitral (valve) annulus calcification; R93.1 Abnormal findings on diagnostic imaging of heart and coronary circulation
CPT/HCPCS: 93306

== ENCOUNTER 2024-03-06 21:58 | Emergency (ER) | payer OTHER, MEDICARE, SELFPAY ==
[2024-03-06 21:59] VITALS: BP 175/87; PULSE 89; RESP 19; TEMP 36.7; O2SAT 96; BMI 29.5
[2024-03-06 22:07] LABS: Glucose Point of Care 250 mg/dL (70-110)
--- NOTE | 2024-03-06 22:07 | XRR_ITS ---
PROCEDURE INFORMATION: Exam: XR Chest Exam date and time: 03/06/2024 10:17 PM Age: 83 years old Clinical indication: Patient HX: Cough; Hyperglycemia TECHNIQUE: Imaging protocol: Radiologic exam of the chest. Views: 1 view. COMPARISON: CR XR chest 1V portable [id number] 10/04/2023 7:13 AM FINDINGS: Lungs: Unremarkable. No consolidation. Pleural spaces: Unremarkable. No pleural effusion. No pneumothorax. Heart/Mediastinum: Cardiac recorder device.. No cardiomegaly. Bones/joints: Median sternotomy wires are present.. XR/XR chest 1V portable [id number] IMPRESSION: No acute findings.
[2024-03-06 22:15] LABS: Basophils % 0.5 %; Eosinophils # 0.2 10^3/uL (0.0-0.8); Eosinophils % 2.6 %; Hematocrit 41.5 % (37-53); Lymphocytes # 1.7 10^3/uL (0.8-4.8); Lymphocytes % 20.8 %; Mean Corpuscular Hemoglobin 30.6 pg (27-33); Mean Corpuscular Volume 92.6 fl (82-101); Mean Platelet Volume 8.6 fL (7.4-10.4); Monocytes # 0.6 10^3/uL (0.2-0.9); Monocytes % 6.7 %; Neutrophils # 5.72 10^3/uL (1.8-7.7); Neutrophils % 68.9 %; Nucleated Red Blood Cells % 0 %; Platelet Count 150 10^3/cmm (157-399); Red Blood Count 4.48 10^6/uL (3.85-5.65); White Blood Count 8.31 10^3/uL (3.29-11.43)
--- NOTE | 2024-03-06 22:16 | ED_ITS ---
HPI - General Adult 2 General: Chief complaint: General Medical Stated complaint: HIGH BLOOD SUGAR Time Seen by Provider: 03/06/24 22:03 History of Present Illness: Patient presents to the ER with complaints of high blood sugar and a coughing fit. Patient says he took his nighttime medicine and thinks he got 1 him down the wrong hole and went to about a 30-minute coughing fit. Patient is now improved from it. Family called EMS to come evaluate him when they got there they checked his blood sugar and it was 350. Family decided that he needed to come in to be further evaluated. Patient has no complaints at this time. Related Data Home Medications Medication Instructions Recorded Confirmed atorvastatin 80 mg tablet 80 mg PO QPM 03/31/19 07/30/23 calcium polycarbophil 625 mg tablet 1,250 mg PO DAILY 03/31/19 07/30/23 magnesium oxide 400 mg (241.3 mg 400 mg PO BID 03/31/19 07/30/23 magnesium) tablet (MagOx) omeprazole 20 mg tablet,delayed 20 mg PO BID 03/31/19 07/30/23 release cholecalciferol (vitamin D3) 50 2,000 unit PO QPM 02/14/20 07/30/23 mcg (2,000 unit) tablet (Vitamin D3) aspirin 81 mg tablet,delayed 81 mg PO BEDTIME 07/20/20 07/30/23 release finasteride 5 mg tablet 5 mg PO QPM 07/20/20 07/30/23 duloxetine 20 mg capsule,delayed 40 mg PO DAILY 09/05/22 07/30/23 release memantine 5 mg tablet 5 mg PO BID 09/05/22 07/30/23 semaglutide 0.25 mg or 0.5 mg (2 0.5 mg SUBCUT Q7D 09/05/22 07/30/23 mg/3 mL) subcutaneous pen injector (Ozempic) buspirone 10 mg tablet 5 mg PO TID 04/14/23 07/30/23 pyridoxine (vitamin B6) 100 mg 100 mg PO QAM 04/14/23 07/30/23 tablet (Vitamin B-6) vitamin B complex 2 tab PO QAM 04/14/23 07/30/23 acetaminophen 500 mg tablet 500 mg PO QID PRN Pain 07/09/23 07/30/23 carvedilol 3.125 mg tablet 3.125 mg PO BID 07/09/23 07/30/23 fluoride (sodium) 1.1 % dental 1 applic dental DAILY 07/09/23 07/30/23 cream (Sodium Fluoride 5000 Plus) furosemide 40 mg tablet 40 mg PO QAM PRN Edema 07/09/23 07/30/23 midodrine 10 mg tablet 10 mg PO TID PRN LOW BLOOD 07/09/23 07/30/23 omega 4-eru-jik-fish oil 1,000 mg 1 cap PO BID 07/09/23 07/30/23 (120 mg-180 mg) capsule (Fish Oil) potassium chloride 20 mEq 20 meq PO DAILY PRN with lasix 07/09/23 07/30/23 tablet,extended release(part/cryst) insulin glargine 100 unit/mL 20 unit SUBCUT BEDTIME 07/30/23 07/30/23 subcutaneous solution (Lantus U-100 Insulin) Previous Rx's Medication Instructions Recorded tamsulosin 0.4 mg capsule 0.4 mg PO BID #180 caps 09/27/20 albuterol sulfate 90 mcg/actuation 2 inh inhalation Q4H PRN shortness 04/04/23 aerosol inhaler of breath or wheezing #6.7 grams diabetic shoes with 3 inserts #1 ea 05/29/23 apixaban 5 mg tablet (Eliquis) See Rx Instructions .Route 08/05/23 .COMPLEX #90 tabs Allergies Allergy/AdvReac Type Severity Reaction Status Date / Time lisinopril Allergy ALGY-Rash Verified 11/20/23 13:54 Review of Systems 2 General: Reports: 10 or more systems reviewed and unremarkable except in HPI and below PFSH ED 2 PFSH: Medical History Depression Chronic kidney disease Hyperlipidemia Atrial fibrillation Urgency incontinence Benign prostatic hyperplasia with lower urinary tract symptoms Urolithiasis Carotid bruit Syncope Diabetes mellitus Hypertension CHF (congestive heart failure) CAD (coronary artery disease) This patient had a coronary bypass surgery in 2008 along with a mitral valve repair and a maze procedure, at the [facility] in [place]. Surgical History History of tonsillectomy and adenoidectomy History of loop recorder placed late 2020 or early 2021 H/O carpal tunnel repair bilateral S/P trigger finger release History of maze procedure History of mitral valve replacement with bioprosthetic valve S/P ureteral stent placement Hx of CABG Family History Mother , AT AGE 86 No problems noted. Father , AT AGE 65 Stroke Other Hyperlipidemia Hypertension Social History Smoking and tobacco/nicotine status: unknown if used tobacco/nicotine Alcohol intake: never Substance/Drug Use: never Lives independently: Yes Marital status: / Current occupational status: retired Physical Exam 2 Const: COMMON NORMALS: no acute distress, average body habitus, patient oriented x3, no limitations, healthy appearing, alert and well nourished HENMT: COMMON NORMALS: normocephalic, atraumatic, hearing grossly normal bilaterally, external ears normal, Normal external nose present and moist oral mucous membranes HEAD & SCALP: normocephalic and atraumatic NOSE: Normal external nose present EXTERNAL EAR: Yes external ears normal Neck/C-Spine: COMMON NORMALS: no JVD Chest: COMMONS NORMALS: normal inspection of the chest and normal palpation of entire chest wall Resp: COMMON NORMALS: normal respiratory effort, No retractions, No use of accessory muscles and clear to auscultation bilaterally AUSCULTATION: clear to auscultation bilaterally Cardio: COMMON NORMALS: no JVD, S1 normal heart sound present, S2 normal heart sound present, No gallops present (Cardio), No clicks present (Cardio), No murmurs present (Cardio) and No rub (Cardio); negative for regular rate (Irregularly irregular rhythm) RATE: abnormal rate (Irregularly irregular rhythm) HEART SOUNDS: S1 normal heart sound present and S2 normal heart sound present GI: COMMON NORMALS: Normal to inspection, nondistended, normoactive bowel sounds present, Soft to palpation, non-tender, No hepatosplenomegaly present and no masses PALPATION: Yes Soft to palpation and Yes No hepatosplenomegaly present Neuro: COMMON NORMALS: patient oriented x3 SENSORIUM/ORIENTATION: Yes alert Course 2 Vital Signs: Vital signs: Vital Signs Temperature 98.0 F 03/06/24 21:59 Pulse Rate 91 03/06/24 22:18 Respiratory Rate 16 03/06/24 22:18 Blood Pressure 175/87 03/06/24 22:18 Pulse Oximetry 95 03/06/24 22:18 Oxygen Delivery Me thod Room Air 03/06/24 21:59 MDM - General Adult Medical Decision Making Patient lab work, chest x-ray, read by myself is negative, anything else essentially benign for the patient. Patient be discharged home. Medical Records I reviewed the patient's medical records. Lab Data I reviewed the patient's lab results. 03/06/24 22:09 03/06/24 22:09 Laboratory Results WBC 8.31 10^3/uL (3.29-11.43) 03/06/24 22:09 RBC 4.48 10^6/uL (3.85-5.65) 03/06/24 22:09 Hgb 13.70 g/dL (11.27-16.99) 03/06/24 22:09 Hct 41.5 % (37-53) 03/06/24 22:09 MCV 92.6 fl (82-101) 03/06/24 22:09 MCH 30.6 pg (27-33) 03/06/24 22:09 MCHC 33.0 g/dL (30-55) 03/06/24 22:09 RDW 14.0 % (12.1-15.1) 03/06/24 22:09 Plt Count 150 10^3/cmm (157-399) L 03/06/24 22:09 MPV 8.6 fL (7.4-10.4) 03/06/24 22:09 Neut % (Auto) 68.9 % 03/06/24 22:09 Lymph % (Auto) 20.8 % 03/06/24 22:09 Guthrie % (Auto) 6.7 % 03/06/24 22:09 Eos % (Auto) 2.6 % 03/06/24 22:09 Baso % (Auto) 0.5 % 03/06/24 22:09 Neut # (Auto) 5.72 10^3/uL (1.8-7.7) 03/06/24 22:09 Lymph # (Auto) 1.7 10^3/uL (0.8-4.8) 03/06/24 22:09 Guthrie # (Auto) 0.6 10^3/uL (0.2-0.9) 03/06/24 22:09 Eos # (Auto) 0.2 10^3/uL (0.0-0.8) 03/06/24 22:09 Baso # (Auto) 0.0 10^3/uL (0.0-0.1) 03/06/24 22:09 Nucleated RBC % (auto) 0 % 03/06/24 22:09 Nucleated RBCs # 0.0 /100WBC 03/06/24 22:09 Sodium 137 mmol/L (136-145) 03/06/24 22:09 Potassium 4.8 mmol/L (3.5-5.1) 03/06/24 22:09 Chloride 101 mmol/L (98-107) 03/06/24 22:09 Carbon Dioxide 27 mmol/L (22-29) 03/06/24 22:09 Anion Gap 13.8 (5-19) 03/06/24 22:09 BUN 37 mg/dL (8-23) H 03/06/24 22:09 Creatinine 1.7 mg/dL (0.7-1.2) H 03/06/24 22:09 GFR Calculation Not Reportable 03/06/24 22:09 Glucose 269 mg/dL (65-115) H 03/06/24 22:09 POC Glucose 250 mg/dL (70-110) H 03/06/24 22:02 Calculated Osmolality 302 mOsm/kg (285-295) H 03/06/24 22:09 Calcium 9.4 mg/dL (8.5-10.5) 03/06/24 22:09 Magnesium 1.5 mg/dL (1.7-2.3) L 03/06/24 22:09 Total Bilirubin 0.5 mg/dL (0.15-1.2) 03/06/24 22:09 AST 13 U/L (0-40) 03/06/24 22:09 ALT 16 U/L (0-41) 03/06/24 22:09 Alkaline Phosphatase 111 U/L (40-130) 03/06/24 22:09 Total Protein 6.4 g/dL (6.6-8.7) L 03/06/24 22:09 Albumin 3.9 g/dL (3.5-5.2) 03/06/24 22:09 Globulin 2.5 g/dL (1.3-4.6) 03/06/24 22:09 Urine Color Yellow (Yellow) 03/06/24 22:28 Urine Appearance Clear (CLEAR) 03/06/24 22:28 Urine pH 5.5 (5-7) 03/06/24 22:28 Ur Specific [place] 1.020 (1.005-1.030) 03/06/24 22:28 Urine Protein Trace (Negative) A 03/06/24 22:28 Urine Glucose (UA) 1+ (Normal) H 03/06/24 22:28 Urine Ketones Negative (Negative) 03/06/24 22: Urine Blood Negative (Negative) 03/06/24 22: Urine Nitrate Negative (Negative) 03/06/24 22: Urine Bilirubin Negative (Negative) 03/06/24 22:28 Urine Urobilinogen 1.0 mg/dL (Negative) 03/06/24 22:28 Ur Leukocyte Esterase Negative (Negative) 03/06/24 22:28 Urine RBC 0-2 /hpf (0-2) 03/06/24 22:28 Urine WBC 0-5 /hpf (0-5) 03/06/24 22:28 Ur Squamous Epith Cells 0-5 /hpf (0-5) 03/06/24 22:28 Amorphous Sediment Not Reportable 03/06/24 22:28 Urine Bacteria None seen /hpf (NONE) 03/06/24 22:28 Hyaline Casts 3.30 /lpf 03/06/24 22:28 Serum Ketones Negative (Negative) 03/06/24 22:09 All radiology interpretation(s) finalized by discharge Discharge Plan Discharge Patient Disposition: Home Clinical Impression: Hyperglycemia Cough Qualifiers: Cough type: acute Qualified Code(s): R05.1 - Acute cough Condition: Stable Prescriptions: No Action tamsulosin 0.4 mg capsule 0.4 mg PO BID Qty: 180 3RF memantine 5 mg tablet 5 mg PO BID duloxetine 20 mg capsule,delayed release(DR/EC) 40 mg PO DAILY Ozempic 0.25 mg or 0.5 mg (2 mg/3 mL) pen injector 0.5 mg SUBCUT Q7D Rx Instructions: ON THURSDAY (DME) diabetic shoes with 3 inserts See Rx Instructions .Route .MEDSUPPLY Qty: 1 0RF Rx Instructions: As directed to the sigrid woo Eliquis 5 mg tablet See Rx Instructions .ROUTE .COMPLEX Qty: 90 3RF Dose Instruction: TAKE ONE-HALF TABLET BY MOUTH TWICE A DAY FOR ATRIAL FIBRILLATION. THIS TABLET IS TO BE CUT IN HALF FOR YOUR DOSE Rx Instructions: TAKE ONE-HALF TABLET BY MOUTH TWICE A DAY FOR ATRIAL FIBRILLATION. THIS TABLET IS TO BE CUT IN HALF FOR YOUR DOSE atorvastatin 80 mg Tablet 80 mg PO QPM magnesium oxide [MagOx] 400 mg (241.3 mg magnesium) Tablet 400 mg PO BID calcium polycarbophil 625 mg Tablet 1,250 mg PO DAILY omeprazole 20 mg Tablet,Delayed Release (Dr/Ec) 20 mg PO BID cholecalciferol (vitamin D3) [Vitamin D3] 50 mcg (2,000 unit) tablet 2,000 unit PO QPM aspirin 81 mg Tablet,Delayed Release (Dr/Ec) 81 mg PO BEDTIME finasteride 5 mg Tablet 5 mg PO QPM buspirone 10 mg Tablet 5 mg PO TID vitamin B complex Tablet 2 tab PO QAM pyridoxine (vitamin B6) [Vitamin B-6] 100 mg Tablet 100 mg PO QAM furosemide 40 mg tablet 40 mg PO QAM PRN (Reason: Edema) acetaminophen 500 mg Tablet 500 mg PO QID PRN (Reason: Pain) carvedilol 3.125 mg Tablet 3.125 mg PO BID Rx Instructions: must administer with a meal/food potassium chloride 20 mEq tablet,ER particles/crystals 20 meq PO DAILY PRN (Reason: with lasix) midodrine 10 mg tablet 10 mg PO TID PRN (Reason: LOW BLOOD) fluoride (sodium) [Sodium Fluoride 5000 Plus] 1.1 % Cream 1 applic DENTAL DAILY omega 1-cse-ber-fish oil [Fish Oil] 1,000 mg (120 mg-180 mg) Capsule 1 cap PO BID albuterol sulfate 90 mcg/actuation HFA aerosol inhaler 2 inh INHALATION Q4H PRN (Reason: shortness of breath or wheezing) Qty: 6.7 1RF Lantus U-100 Insulin 100 unit/mL solution 20 unit SUBCUT BEDTIME Discharge Orders: Discharge ED (Routine); Ordered 03/06/24 Ordered By: Mao Ireland Referrals: Lena Orellana MD [Primary Care Provider] - 1 week Patient Instructions: Acute Cough (ED), Diabetic Hyperglycemia (ED) Activity Restrictions/Additional Instructions: Thank you for choosing [facility] for your healthcare needs today. Please realize that you were seen in the emergency department and that we are providing you with an emergency medical screening exam and this may not be a complete and all exclusive of all testing and/or medical workup we may need to determine your element or severity of your illness. It is very important that you follow-up as instructed with your primary care provider or specialist for the additional evaluation and to discuss your medical treatment plan. You may return to the emergency department should you have concerns or if your condition changes or worsens in any way. Coding Level of Care Code ED Accounts Payable Supervisor for Nathaniel Alicea
[2024-03-06 22:18] VITALS: BP 175/87; PULSE 91; RESP 16; O2SAT 95
[2024-03-06 22:30] LABS: Ketone (Acetest) Serum Negative (Negative)
[2024-03-06 22:33] LABS: Alanine Aminotransferase 16 U/L (0-41); Albumin Level 3.9 g/dL (3.5-5.2); Alkaline Phosphatase 111 U/L (40-130); Anion Gap 13.8 (5-19); Aspartate Amino Transferase 13 U/L (0-40); Blood Urea Nitrogen 37 mg/dL (8-23); Calcium 9.4 mg/dL (8.5-10.5); Carbon Dioxide 27 mmol/L (22-29); Chloride 101 mmol/L (98-107); Creatinine Clr Calc Pharmacy 36.6529; Globulin 2.5 g/dL (1.3-4.6); Glucose 269 mg/dL (65-115); Magnesium 1.5 mg/dL (1.7-2.3); Osmolality Calculated 302 mOsm/kg (285-295); Potassium 4.8 mmol/L (3.5-5.1); Sodium 137 mmol/L (136-145); Total Bilirubin 0.5 mg/dL (0.15-1.2); Total Protein 6.4 g/dL (6.6-8.7)
[2024-03-06 22:35] LABS: Bilirubin Urine Negative (Negative); Blood Urine Negative (Negative); Glucose Urine UA 1+ (Normal); Ketones Urine Negative (Negative); Leukocyte Esterase Urine Negative (Negative); Nitrate Urine Negative (Negative); Protein Urine Trace (Negative); Urine Appearance Clear (CLEAR); Urine Color Yellow (Yellow); pH Urine 5.5 (5-7)
[2024-03-06 22:40] LABS: Add Urine Microscopic? YES; Bacteria Urine None Seen /hpf; RBC Urine 0-2 /hpf (0-2); Squamous Epithelial Cell Urine 0-5 /hpf (0-5); WBC Urine 0-5 /hpf (0-5)
[2024-03-06 22:59] VITALS: BP 178/88; PULSE 90; O2SAT 92
== END 2024-03-06 23:00 | disposition home or self-care (01) ==
PROVIDERS: Emergency Provider Emergency Medicine
DX: E11.65 Type 2 diabetes mellitus with hyperglycemia (principal); R05.1 Acute cough; Z79.01 Long term (current) use of anticoagulants; Z79.82 Long term (current) use of aspirin; Z95.1 Presence of aortocoronary bypass graft; E11.22 Type 2 diabetes mellitus with diabetic chronic kidney disease; I13.0 Hypertensive heart and chronic kidney disease with heart failure and stage 1 through stage 4 chronic kidney disease, or unspecified chronic kidney disease; N18.9 Chronic kidney disease, unspecified; I50.9 Heart failure, unspecified; E78.5 Hyperlipidemia, unspecified; I25.10 Atherosclerotic heart disease of native coronary artery without angina pectoris
CPT/HCPCS: 36415; 36416; 71045; 80053; 81001; 82009; 82962; 83735; 85025; 99284

== ENCOUNTER 2024-04-14 19:47 | Emergency (ER) | payer OTHER, MEDICARE, SELFPAY ==
[2024-04-14 19:55] VITALS: BP 162/91; PULSE 86; RESP 20; TEMP 36.6; O2SAT 95; BMI 29.5
--- NOTE | 2024-04-14 20:01 | ECG_ITS ---
[facility] Date: 2024-04-14 Pat Name: Jose Armendariz Department: Room: Gender: Male Jeeper Operator: : 1940 Requested By: Le Rousseau Order Number: [id number] Jose MD: Alexi Orona M.D. Measurements Intervals [place] Rate: 85 P: 0 AL: 0 QRS: 61 QRSD: 137 T: -21 QT: 385 QTc: 459 Interpretive Statements ATRIAL FIBRILLATION WITH ABERRANT CONDUCTION OR VENTRICULAR PREMATURE COMPLEXES RIGHT BUNDLE BRANCH BLOCK [120+ ms QRS DURATION, UPRIGHT V1, 40+ ms S IN I/aVL/V4/V5/V6] Compared to ECG 10/21/2023 14:41:54 Ventricular premature complex(es) now present Aberrant conduction of supraventricular beat(s) now present Sinus rhythm no longer present First degree AV block no longer present Electronically Signed On 04-14-2024 21:47:55 [employer]KEINS [employer]ARN EXAMINER by Alexi Orona M.D. [email or web address]
--- NOTE | 2024-04-14 20:12 | W.ED.ARRPALP ---
Documented by User: Le Rousseau MD 04/14/24 20:43 HPI - Arrhythmia/Palpitations General: Chief Complaint: Arrhythmia/Palpitations Stated Complaint: Afib, Weakness Time Seen by Provider: 04/14/24 19:51 Source: patient and EMS Mode of arrival: EMS Limitations: no limitations History of Present Illness: 83-year-old male who states he has a history of A-fib he states that he put his daughter's smart watch on and it said he was in A-fib and she became concerned and called EMS he denies any chest pain he denies any shortness of breath is long history of A-fib is on meds for his heart rates controlled here. Associated symptoms: Deny nausea or vomiting Related Data Home Medications ?Medication ?Instructions ?Recorded ?Confirmed atorvastatin 80 mg tablet 80 mg PO QPM 03/31/19 07/30/23 calcium polycarbophil 625 mg tablet 1,250 mg PO DAILY 03/31/19 07/30/23 magnesium oxide 400 mg (241.3 mg 400 mg PO BID 03/31/19 07/30/23 magnesium) tablet (MagOx) omeprazole 20 mg tablet,delayed 20 mg PO BID 03/31/19 07/30/23 release cholecalciferol (vitamin D3) 50 2,000 unit PO QPM 02/14/20 07/30/23 mcg (2,000 unit) tablet (Vitamin D3) aspirin 81 mg tablet,delayed 81 mg PO BEDTIME 07/20/20 07/30/23 release finasteride 5 mg tablet 5 mg PO QPM 07/20/20 07/30/23 duloxetine 20 mg capsule,delayed 40 mg PO DAILY 09/05/22 07/30/23 release memantine 5 mg tablet 5 mg PO BID 09/05/22 07/30/23 semaglutide 0.25 mg or 0.5 mg (2 0.5 mg SUBCUT Q7D 09/05/22 07/30/23 mg/3 mL) subcutaneous pen injector (Ozempic) buspirone 10 mg tablet 5 mg PO TID 04/14/23 07/30/23 pyridoxine (vitamin B6) 100 mg 100 mg PO QAM 04/14/23 07/30/23 tablet (Vitamin B-6) vitamin B complex 2 tab PO QAM 04/14/23 07/30/23 acetaminophen 500 mg tablet 500 mg PO QID PRN Pain 07/09/23 07/30/23 carvedilol 3.125 mg tablet 3.125 mg PO BID 07/09/23 07/30/23 fluoride (sodium) 1.1 % dental 1 applic dental DAILY 07/09/23 07/30/23 cream (Sodium Fluoride 5000 Plus) furosemide 40 mg tablet 40 mg PO QAM PRN Edema 07/09/23 07/30/23 midodrine 10 mg tablet 10 mg PO TID PRN LOW BLOOD 07/09/23 07/30/23 omega 6-kds-jwc-fish oil 1,000 mg 1 cap PO BID 07/09/23 07/30/23 (120 mg-180 mg) capsule (Fish Oil) potassium chloride 20 mEq 20 meq PO DAILY PRN with lasix 07/09/23 07/30/23 tablet,extended release(part/cryst) insulin glargine 100 unit/mL 20 unit SUBCUT BEDTIME 07/30/23 07/30/23 subcutaneous solution (Lantus U-100 Insulin) Previous Rx's ?Medication ?Instructions ?Recorded tamsulosin 0.4 mg capsule 0.4 mg PO BID #180 caps 09/27/20 albuterol sulfate 90 mcg/actuation 2 inh inhalation Q4H PRN shortness 04/04/23 aerosol inhaler of breath or wheezing #6.7 grams diabetic shoes with 3 inserts #1 ea 05/29/23 apixaban 5 mg tablet (Eliquis) See Rx Instructions .Route 08/05/23 .COMPLEX #90 tabs Allergies Allergy/AdvReac Type Severity Reaction Status Date / Time lisinopril Allergy ALGY-Rash Verified 11/20/23 13:54 Review of Systems Const: Denies: fever(s), chills, body aches or change in appetite ENMT: Denies: throat pain or dental pain Card: Denies: chest pain Resp: Denies: dyspnea GI: Denies: abdominal pain, nausea, vomiting or diarrhea Musc: Denies: neck pain or back pain Skin/Breast: Denies: rash Neuro: Denies: headache(s) PFSH ED PFSH: Medical History Depression Chronic kidney disease Hyperlipidemia Atrial fibrillation Urgency incontinence Benign prostatic hyperplasia with lower urinary tract symptoms Urolithiasis Carotid bruit Syncope Diabetes mellitus Hypertension CHF (congestive heart failure) CAD (coronary artery disease) This patient had a coronary bypass surgery in 2008 along with a mitral valve repair and a maze procedure, at the [facility] in [place]. Surgical History History of tonsillectomy and adenoidectomy History of loop recorder placed late 2020 or early 2021 H/O carpal tunnel repair bilateral S/P trigger finger release History of maze procedure History of mitral valve replacement with bioprosthetic valve S/P ureteral stent placement Hx of CABG Family History Mother , AT AGE 86 No problems noted. Father , AT AGE 65 Stroke Other Hyperlipidemia Hypertension Social History Smoking and tobacco/nicotine status: unknown if used tobacco/nicotine Alcohol intake: never Substance/Drug Use: never Lives independently: Yes Marital status: / Current occupational status: retired Physical Exam Const: COMMON NORMALS: no acute distress, patient oriented x3 and healthy appearing HENMT: COMMON NORMALS: normocephalic and atraumatic HEAD & SCALP: normocephalic and atraumatic Neck/C-Spine: COMMON NORMALS: full ROM and supple Chest: COMMONS NORMALS: normal inspection of the chest Resp: COMMON NORMALS: normal respiratory effort Cardio: COMMON NORMALS: regular rate and No murmurs present (Cardio) RATE: regular rate RHYTHM: abnormal rhythm irregularly irregular Extremity: COMMON NORMALS: normal to inspection and full ROM Neuro: COMMON NORMALS: patient oriented x3, moves all extremities and no focal motor deficits Psych: COMMON NORMALS: mental status grossly normal, Normal thought process present and cooperative THOUGHT PROCESS: Normal thought process present Skin: COMMON NORMALS: no rashes or lesions noted and no wounds GENERAL SKIN EXAM: no rashes or lesions noted Course Vital Signs: Vital signs: Vital Signs Temperature 98 F 04/14/24 19:55 Pulse Rate 83 04/15/24 00:02 Respiratory Rate 16 04/15/24 00:02 Blood Pressure 149/79 04/15/24 00:02 Pulse Oximetry 94 04/15/24 00:02 Oxygen Delivery Me thod Room Air 04/15/24 00:02 MDM - Arrhythmia/Palpitations Medical Records I reviewed the patient's medical records. Lab Data I reviewed the patient's lab results. 04/14/24 21:15 04/14/24 21:15 Radiology Impressions Chest X-Ray 04/14/24 21:07 IMPRESSION: No acute findings. Head CT 04/14/24 21:07 IMPRESSION: 1. No acute intracranial abnormality. 2. Chronic/age-related changes as above. Knee X-Ray 04/14/24 21:07 IMPRESSION: 1. No acute osseous findings. 2. Small joint effusion. Laboratory Results WBC 8.78 10^3/uL (3.29-11.43) 04/14/24 21:15 RBC 4.10 10^6/uL (3.85-5.65) 04/14/24 21:15 Hgb 12.50 g/dL (11.27-16.99) 04/14/24 21:15 Hct 37.2 % (37-53) 04/14/24 21:15 MCV 90.7 fl (82-101) 04/14/24 21:15 MCH 30.5 pg (27-33) 04/14/24 21:15 MCHC 33.6 g/dL (30-55) 04/14/24 21:15 RDW 13.9 % (12.1-15.1) 04/14/24 21:15 Plt Count 164 10^3/cmm (157-399) 04/14/24 21:15 MPV 9.1 fL (7.4-10.4) 04/14/24 21:15 Neut % (Auto) 70.0 % 04/14/24 21:15 Lymph % (Auto) 18.8 % 04/14/24 21:15 [place] % (Auto) 6.8 % 04/14/24 21:15 Eos % (Auto) 3.6 % 04/14/24 21:15 Baso % (Auto) 0.5 % 04/14/24 21:15 Neut # (Auto) 6.14 10^3/uL (1.8-7.7) 04/14/24 21:15 Lymph # (Auto) 1.7 10^3/uL (0.8-4.8) 04/14/24 21:15 [place] # (Auto) 0.6 10^3/uL (0.2-0.9) 04/14/24 21:15 Eos # (Auto) 0.3 10^3/uL (0.0-0.8) 04/14/24 21:15 Baso # (Auto) 0.0 10^3/uL (0.0-0.1) 04/14/24 21:15 Nucleated RBC % (auto) 0 % 04/14/24 21:15 Nucleated RBCs # 0.0 /100WBC 04/14/24 21:15 PT 15.20 SECONDS (12.1-14.9) H 04/14/24 21:15 INR 1.12 (0.8-1.2) 04/14/24 21:15 Sodium 138 mmol/L (136-145) 04/14/24 21:15 Potassium 3.8 mmol/L (3.5-5.1) 04/14/24 21:15 Chloride 103 mmol/L (98-107) 04/14/24 21:15 Carbon Dioxide 26 mmol/L (22-29) 04/14/24 21:15 Anion Gap 12.8 (5-19) 04/14/24 21:15 BUN 27 mg/dL (8-23) H 04/14/24 21:15 Creatinine 1.2 mg/dL (0.7-1.2) 04/14/24 21:15 GFR Calculation Not Reportable 04/14/24 21:15 Glucose 195 mg/dL (65-115) H 04/14/24 21:15 Calculated Osmolality 296 mOsm/kg (285-295) H 04/14/24 21:15 Calcium 9.1 mg/dL (8.5-10.5) 04/14/24 21:15 Total Bilirubin 0.5 mg/dL (0.15-1.2) 04/14/24 21:15 AST 10 U/L (0-40) 04/14/24 21:15 ALT 13 U/L (0-41) 04/14/24 21:15 Alkaline Phosphatase 99 U/L (40-130) 04/14/24 21:15 Total Protein 6.2 g/dL (6.6-8.7) L 04/14/24 21:15 Albumin 3.5 g/dL (3.5-5.2) 04/14/24 21:15 Globulin 2.7 g/dL (1.3-4.6) 04/14/24 21:15 Urine Color Yellow (Yellow) 04/14/24 23:24 Urine Appearance Clear (CLEAR) 04/14/24 23:24 Urine pH 5.5 (5-7) 04/14/24 23:24 Ur Specific [place] 1.022 (1.005-1.030) 04/14/24 23:24 Urine Protein 1+ (Negative) A 04/14/24 23:24 Urine Glucose (UA) 1+ (Normal) H 04/14/24 23:24 Urine Ketones Negative (Negative) 04/14/24 23:24 Urine Blood Negative (Negative) 04/14/24 23:24 Urine Nitrate Negative (Negative) 04/14/24 23:24 Urine Bilirubin Negative (Negative) 04/14/24 23:24 Urine Urobilinogen 1.0 mg/dL (Negative) 04/14/24 23:24 Ur Leukocyte Esterase Negative (Negative) 04/14/24 23:24 Urine RBC 0-2 /hpf (0-2) 04/14/24 23:24 Urine WBC 0-5 /hpf (0-5) 04/14/24 23:24 Ur Squamous Epith Cells 0-5 /hpf (0-5) 04/14/24 23:24 Amorphous Sediment Not Reportable 04/14/24 23:24 Urine Bacteria None seen /hpf (NONE) 04/14/24 23:24 Hyaline Casts 1.21 /lpf 04/14/24 23:24 Coronavirus (PCR) Negative (Negative) 04/14/24 20:01 Influenza A (PCR) Negative (Negative) 04/14/24 20:01 Influenza Type B (PCR) Negative (Negative) 04/14/24 20:01 RSV (PCR) Negative (Negative) 04/14/24 20:01 All radiology interpretation(s) finalized by discharge EKG Data EKG 1: I personally reviewed and interpreted this EKG as follows: EKG interpretation date: 04/14/24 EKG interpretation time: 20:01 Interpretation: afib hr [address] or t wave abnormalities qrs 137 [id number] Other EKG comments: Chest X-Ray 04/14/24 21:07 IMPRESSION: No acute findings. Head CT 04/14/24 21:07 IMPRESSION: 1. No acute intracranial abnormality. 2. Chronic/age-related changes as above. Knee X-Ray 04/14/24 21:07 IMPRESSION: 1. No acute osseous findings. 2. Small joint effusion. Discharge Plan Discharge Patient Disposition: Home Clinical Impression: Atrial fibrillation Qualifiers: Atrial fibrillation type: paroxysmal Qualified Code(s): I48.0 - Paroxysmal atrial fibrillation Condition: Stable Prescriptions: No Action tamsulosin 0.4 mg capsule 0.4 mg PO BID Qty: 180 3RF memantine 5 mg tablet 5 mg PO BID duloxetine 20 mg capsule,delayed release(DR/EC) 40 mg PO DAILY Ozempic 0.25 mg or 0.5 mg (2 mg/3 mL) pen injector 0.5 mg SUBCUT Q7D Rx Instructions: ON THURSDAY (DME) diabetic shoes with 3 inserts See Rx Instructions .Route .MEDSUPPLY Qty: 1 0RF Rx Instructions: As directed to the shoe guys Eliquis 5 mg tablet See Rx Instructions .ROUTE .COMPLEX Qty: 90 3RF Dose Instruction: TAKE ONE-HALF TABLET BY MOUTH TWICE A DAY FOR ATRIAL FIBRILLATION. THIS TABLET IS TO BE CUT IN HALF FOR YOUR DOSE Rx Instructions: TAKE ONE-HALF TABLET BY MOUTH TWICE A DAY FOR ATRIAL FIBRILLATION. THIS TABLET IS TO BE CUT IN HALF FOR YOUR DOSE atorvastatin 80 mg Tablet 80 mg PO QPM magnesium oxide [MagOx] 400 mg (241.3 mg magnesium) Tablet 400 mg PO BID calcium polycarbophil 625 mg Tablet 1,250 mg PO DAILY omeprazole 20 mg Tablet,Delayed Release (Dr/Ec) 20 mg PO BID cholecalciferol (vitamin D3) [Vitamin D3] 50 mcg (2,000 unit) tablet 2,000 unit PO QPM aspirin 81 mg Tablet,Delayed Release (Dr/Ec) 81 mg PO BEDTIME finasteride 5 mg Tablet 5 mg PO QPM buspirone 10 mg Tablet 5 mg PO TID vitamin B complex Tablet 2 tab PO QAM pyridoxine (vitamin B6) [Vitamin B-6] 100 mg Tablet 100 mg PO QAM furosemide 40 mg tablet 40 mg PO QAM PRN (Reason: Edema) acetaminophen 500 mg Tablet 500 mg PO QID PRN (Reason: Pain) carvedilol 3.125 mg Tablet 3.125 mg PO BID Rx Instructions: must administer with a meal/food potassium chloride 20 mEq tablet,ER particles/crystals 20 meq PO DAILY PRN (Reason: with lasix) midodrine 10 mg tablet 10 mg PO TID PRN (Reason: LOW BLOOD) fluoride (sodium) [Sodium Fluoride 5000 Plus] 1.1 % Cream 1 applic DENTAL DAILY omega 4-uyi-qpl-fish oil [Fish Oil] 1,000 mg (120 mg-180 mg) Capsule 1 cap PO BID albuterol sulfate 90 mcg/actuation HFA aerosol inhaler 2 inh INHALATION Q4H PRN (Reason: shortness of breath or wheezing) Qty: 6.7 1RF Lantus U-100 Insulin 100 unit/mL solution 20 unit SUBCUT BEDTIME Discharge Orders: Discharge ED (Routine); Ordered 04/15/24 Ordered By: Mao Ireland Discharge Diet: Advance as tolerated Discharge Activity: Resume usual activity Patient Instructions: A-fib (Atrial Fibrillation) (ED) Print Language: [place] Irish Coding Level of Care Code ED Consumer Experience Consultant for Chg Fwd Documented by User: Mao Ireland DO 04/15/24 00:25 HPI - Arrhythmia/Palpitations General: Chief Complaint: Arrhythmia/Palpitations Stated Complaint: Afib, Weakness Time Seen by Provider: 04/14/24 19:51 Related Data Home Medications ?Medication ?Instructions ?Recorded ?Confirmed atorvastatin 80 mg tablet 80 mg PO QPM 03/31/19 07/30/23 calcium polycarbophil 625 mg tablet 1,250 mg PO DAILY 03/31/19 07/30/23 magnesium oxide 400 mg (241.3 mg 400 mg PO BID 03/31/19 07/30/23 magnesium) tablet (MagOx) omeprazole 20 mg tablet,delayed 20 mg PO BID 03/31/19 07/30/23 release cholecalciferol (vitamin D3) 50 2,000 unit PO QPM 02/14/20 07/30/23 mcg (2,000 unit) tablet (Vitamin D3) aspirin 81 mg tablet,delayed 81 mg PO BEDTIME 07/20/20 07/30/23 release finasteride 5 mg tablet 5 mg PO QPM 07/20/20 07/30/23 duloxetine 20 mg capsule,delayed 40 mg PO DAILY 09/05/22 07/30/23 release memantine 5 mg tablet 5 mg PO BID 09/05/22 07/30/23 semaglutide 0.25 mg or 0.5 mg (2 0.5 mg SUBCUT Q7D 09/05/22 07/30/23 mg/3 mL) subcutaneous pen injector (Ozempic) buspirone 10 mg tablet 5 mg PO TID 04/14/23 07/30/23 pyridoxine (vitamin B6) 100 mg 100 mg PO QAM 04/14/23 07/30/23 tablet (Vitamin B-6) vitamin B complex 2 tab PO QAM 04/14/23 07/30/23 acetaminophen 500 mg tablet 500 mg PO QID PRN Pain 07/09/23 07/30/23 carvedilol 3.125 mg tablet 3.125 mg PO BID 07/09/23 07/30/23 fluoride (sodium) 1.1 % dental 1 applic dental DAILY 07/09/23 07/30/23 cream (Sodium Fluoride 5000 Plus) furosemide 40 mg tablet 40 mg PO QAM PRN Edema 07/09/23 07/30/23 midodrine 10 mg tablet 10 mg PO TID PRN LOW BLOOD 07/09/23 07/30/23 omega 4-xpe-iso-fish oil 1,000 mg 1 cap PO BID 07/09/23 07/30/23 (120 mg-180 mg) capsule (Fish Oil) potassium chloride 20 mEq 20 meq PO DAILY PRN with lasix 07/09/23 07/30/23 tablet,extended release(part/cryst) insulin glargine 100 unit/mL 20 unit SUBCUT BEDTIME 07/30/23 07/30/23 subcutaneous solution (Lantus U-100 Insulin) Previous Rx's ?Medication ?Instructions ?Recorded tamsulosin 0.4 mg capsule 0.4 mg PO BID #180 caps 09/27/20 albuterol sulfate 90 mcg/actuation 2 inh inhalation Q4H PRN shortness 01/27/24 aerosol inhaler of breath or wheezing #6.7 grams diabetic shoes with 3 inserts #1 ea 05/29/23 apixaban 5 mg tablet (Eliquis) See Rx Instructions .Route 08/05/23 .COMPLEX #90 tabs Allergies Allergy/AdvReac Type Severity Reaction Status Date / Time lisinopril Allergy ALGY-Rash Verified 11/20/23 13:54 PFSH ED PFSH: Medical History Depression Chronic kidney disease Hyperlipidemia Atrial fibrillation Urgency incontinence Benign prostatic hyperplasia with lower urinary tract symptoms Urolithiasis Carotid bruit Syncope Diabetes mellitus Hypertension CHF (congestive heart failure) CAD (coronary artery disease) This patient had a coronary bypass surgery in 2008 along with a mitral valve repair and a maze procedure, at the [facility] in [place]. Surgical History History of tonsillectomy and adenoidectomy History of loop recorder placed late 2020 or early 2021 H/O carpal tunnel repair bilateral S/P trigger finger release History of maze procedure History of mitral valve replacement with bioprosthetic valve S/P ureteral stent placement Hx of CABG Family History Mother , AT AGE 86 No problems noted. Father , AT AGE 65 Stroke Other Hyperlipidemia Hypertension Social History Smoking and tobacco/nicotine status: unknown if used tobacco/nicotine Alcohol intake: never Substance/Drug Use: never Lives independently: Yes Marital status: / Current occupational status: retired Course Vital Signs: Vital signs: Vital Signs Temperature 98 F 04/14/24 19:55 Pulse Rate 83 04/15/24 00:02 Respiratory Rate 16 04/15/24 00:02 Blood Pressure 149/79 04/15/24 00:02 Pulse Oximetry 94 04/15/24 00:02 Oxygen Delivery Me thod Room Air 04/15/24 00:02 MDM - Arrhythmia/Palpitations Medical Decision Making Patient care transitioned over to myself at shift change, lab work was reviewed, as well as chest x-ray head CT knee x-ray, all essentially benign with no acute findings. Patient be discharged home. Lab Data 04/14/24 21:15 04/14/24 21:15 Radiology Impressions Chest X-Ray 04/14/24 21:07 IMPRESSION: No acute findings. Head CT 04/14/24 21:07 IMPRESSION: 1. No acute intracranial abnormality. 2. Chronic/age-related changes as above. Knee X-Ray 04/14/24 21:07 IMPRESSION: 1. No acute osseous findings. 2. Small joint effusion. Laboratory Results WBC 8.78 10^3/uL (3.29-11.43) 04/14/24 21:15 RBC 4.10 10^6/uL (3.85-5.65) 04/14/24 21:15 Hgb 12.50 g/dL (11.27-16.99) 04/14/24 21:15 Hct 37.2 % (37-53) 04/14/24 21:15 MCV 90.7 fl (82-101) 04/14/24 21:15 MCH 30.5 pg (27-33) 04/14/24 21:15 MCHC 33.6 g/dL (30-55) 04/14/24 21:15 RDW 13.9 % (12.1-15.1) 04/14/24 21:15 Plt Count 164 10^3/cmm (157-399) 04/14/24 21:15 MPV 9.1 fL (7.4-10.4) 04/14/24 21:15 Neut % (Auto) 70.0 % 04/14/24 21:15 Lymph % (Auto) 18.8 % 04/14/24 21:15 [place] % (Auto) 6.8 % 04/14/24 21:15 Eos % (Auto) 3.6 % 04/14/24 21:15 Baso % (Auto) 0.5 % 04/14/24 21:15 Neut # (Auto) 6.14 10^3/uL (1.8-7.7) 04/14/24 21:15 Lymph # (Auto) 1.7 10^3/uL (0.8-4.8) 04/14/24 21:15 [place] # (Auto) 0.6 10^3/uL (0.2-0.9) 04/14/24 21:15 Eos # (Auto) 0.3 10^3/uL (0.0-0.8) 04/14/24 21:15 Baso # (Auto) 0.0 10^3/uL (0.0-0.1) 04/14/24 21:15 Nucleated RBC % (auto) 0 % 04/14/24 21:15 Nucleated RBCs # 0.0 /100WBC 04/14/24 21:15 PT 15.20 SECONDS (12.1-14.9) H 04/14/24 21:15 INR 1.12 (0.8-1.2) 04/14/24 21:15 Sodium 138 mmol/L (136-145) 04/14/24 21:15 Potassium 3.8 mmol/L (3.5-5.1) 04/14/24 21:15 Chloride 103 mmol/L (98-107) 04/14/24 21:15 Carbon Dioxide 26 mmol/L (22-29) 04/14/24 21:15 Anion Gap 12.8 (5-19) 04/14/24 21:15 BUN 27 mg/dL (8-23) H 04/14/24 21:15 Creatinine 1.2 mg/dL (0.7-1.2) 04/14/24 21:15 GFR Calculation Not Reportable 04/14/24 21:15 Glucose 195 mg/dL (65-115) H 04/14/24 21:15 Calculated Osmolality 296 mOsm/kg (285-295) H 04/14/24 21:15 Calcium 9.1 mg/dL (8.5-10.5) 04/14/24 21:15 Total Bilirubin 0.5 mg/dL (0.15-1.2) 04/14/24 21:15 AST 10 U/L (0-40) 04/14/24 21:15 ALT 13 U/L (0-41) 04/14/24 21:15 Alkaline Phosphatase 99 U/L (40-130) 04/14/24 21:15 Total Protein 6.2 g/dL (6.6-8.7) L 04/14/24 21:15 Albumin 3.5 g/dL (3.5-5.2) 04/14/24 21:15 Globulin 2.7 g/dL (1.3-4.6) 04/14/24 21:15 Urine Color Yellow (Yellow) 04/14/24 23:24 Urine Appearance Clear (CLEAR) 04/14/24 23:24 Urine pH 5.5 (5-7) 04/14/24 23:24 Ur Specific [place] 1.022 (1.005-1.030) 04/14/24 23:24 Urine Protein 1+ (Negative) A 04/14/24 23:24 Urine Glucose (UA) 1+ (Normal) H 04/14/24 23:24 Urine Ketones Negative (Negative) 04/14/24 23:24 Urine Blood Negative (Negative) 04/14/24 23:24 Urine Nitrate Negative (Negative) 04/14/24 23:24 Urine Bilirubin Negative (Negative) 04/14/24 23:24 Urine Urobilinogen 1.0 mg/dL (Negative) 04/14/24 23:24 Ur Leukocyte Esterase Negative (Negative) 04/14/24 23:24 Urine RBC 0-2 /hpf (0-2) 04/14/24 23:24 Urine WBC 0-5 /hpf (0-5) 04/14/24 23:24 Ur Squamous Epith Cells 0-5 /hpf (0-5) 04/14/24 23:24 Amorphous Sediment Not Reportable 04/14/24 23:24 Urine Bacteria None seen /hpf (NONE) 04/14/24 23:24 Hyaline Casts 1.21 /lpf 04/14/24 23:24 Coronavirus (PCR) Negative (Negative) 04/14/24 20:01 Influenza A (PCR) Negative (Negative) 04/14/24 20:01 Influenza Type B (PCR) Negative (Negative) 04/14/24 20:01 RSV (PCR) Negative (Negative) 04/14/24 20:01 EKG Data EKG 1: Other EKG comments: Chest X-Ray 04/14/24 21:07 IMPRESSION: No acute findings. Head CT 04/14/24 21:07 IMPRESSION: 1. No acute intracranial abnormality. 2. Chronic/age-related changes as above. Knee X-Ray 04/14/24 21:07 IMPRESSION: 1. No acute osseous findings. 2. Small joint effusion. Discharge Plan Discharge Patient Disposition: Home Clinical Impression: Atrial fibrillation Qualifiers: Atrial fibrillation type: paroxysmal Qualified Code(s): I48.0 - Paroxysmal atrial fibrillation Condition: Stable Prescriptions: No Action tamsulosin 0.4 mg capsule 0.4 mg PO BID Qty: 180 3RF memantine 5 mg tablet 5 mg PO BID duloxetine 20 mg capsule,delayed release(DR/EC) 40 mg PO DAILY Ozempic 0.25 mg or 0.5 mg (2 mg/3 mL) pen injector 0.5 mg SUBCUT Q7D Rx Instructions: ON THURSDAY (DME) diabetic shoes with 3 inserts See Rx Instructions .Route .MEDSUPPLY Qty: 1 0RF Rx Instructions: As directed to the shoe chilo Eliquis 5 mg tablet See Rx Instructions .ROUTE .COMPLEX Qty: 90 3RF Dose Instruction: TAKE ONE-HALF TABLET BY MOUTH TWICE A DAY FOR ATRIAL FIBRILLATION. THIS TABLET IS TO BE CUT IN HALF FOR YOUR DOSE Rx Instructions: TAKE ONE-HALF TABLET BY MOUTH TWICE A DAY FOR ATRIAL FIBRILLATION. THIS TABLET IS TO BE CUT IN HALF FOR YOUR DOSE atorvastatin 80 mg Tablet 80 mg PO QPM magnesium oxide [MagOx] 400 mg (241.3 mg magnesium) Tablet 400 mg PO BID calcium polycarbophil 625 mg Tablet 1,250 mg PO DAILY omeprazole 20 mg Tablet,Delayed Release (Dr/Ec) 20 mg PO BID cholecalciferol (vitamin D3) [Vitamin D3] 50 mcg (2,000 unit) tablet 2,000 unit PO QPM aspirin 81 mg Tablet,Delayed Release (Dr/Ec) 81 mg PO BEDTIME finasteride 5 mg Tablet 5 mg PO QPM buspirone 10 mg Tablet 5 mg PO TID vitamin B complex Tablet 2 tab PO QAM pyridoxine (vitamin B6) [Vitamin B-6] 100 mg Tablet 100 mg PO QAM furosemide 40 mg tablet 40 mg PO QAM PRN (Reason: Edema) acetaminophen 500 mg Tablet 500 mg PO QID PRN (Reason: Pain) carvedilol 3.125 mg Tablet 3.125 mg PO BID Rx Instructions: must administer with a meal/food potassium chloride 20 mEq tablet,ER particles/crystals 20 meq PO DAILY PRN (Reason: with lasix) midodrine 10 mg tablet 10 mg PO TID PRN (Reason: LOW BLOOD) fluoride (sodium) [Sodium Fluoride 5000 Plus] 1.1 % Cream 1 applic DENTAL DAILY omega 4-pjv-dwq-fish oil [Fish Oil] 1,000 mg (120 mg-180 mg) Capsule 1 cap PO BID albuterol sulfate 90 mcg/actuation HFA aerosol inhaler 2 inh INHALATION Q4H PRN (Reason: shortness of breath or wheezing) Qty: 6.7 1RF Lantus U-100 Insulin 100 unit/mL solution 20 unit SUBCUT BEDTIME Discharge Orders: Discharge ED (Routine); Ordered 04/15/24 Ordered By: Mao Ireland Discharge Diet: Advance as tolerated Discharge Activity: Resume usual activity Patient Instructions: A-fib (Atrial Fibrillation) (ED) Print Language: [place] Irish Coding Level of Care Code ED Consumer Experience Consultant for Nathaniel Alicea
[2024-04-14 20:33] VITALS: BP 162/87; PULSE 77; RESP 20; O2SAT 92
--- NOTE | 2024-04-14 21:07 | XRR_ITS ---
PROCEDURE INFORMATION: Exam: XR Chest Exam date and time: 04/14/2024 9:25 PM Age: 83 years old Clinical indication: Injury or trauma; Fall; Blunt trauma (contusions or hematomas); Prior surgery; Surgery date: 6+ months; Surgery type: Open heart TECHNIQUE: Imaging protocol: Radiologic exam of the chest. Views: 1 view. COMPARISON: CR (CHEST, ) 03/06/2024 10:17 PM FINDINGS: Tubes, catheters and devices: Cardiac loop recorder over the left hemithorax. Lungs: Unremarkable. No consolidation. Pleural spaces: Unremarkable. No pleural effusion. No pneumothorax. Heart/Mediastinum: Unremarkable. No cardiomegaly. Vasculature: Mildly tortuous thoracic aorta with atherosclerotic calcifications. Bones/joints: Post median sternotomy and CABG. XR/XR chest 1V portable [id number] IMPRESSION: No acute findings.
--- NOTE | 2024-04-14 21:07 | XRR_ITS ---
PROCEDURE INFORMATION: Exam: XR Right Knee Exam date and time: 04/14/2024 9:20 PM Age: 83 years old Clinical indication: Injury or trauma; Fall; Blunt trauma; Knee; Right TECHNIQUE: Imaging protocol: Radiologic exam of the right knee. Views: 3 views. COMPARISON: CR XR foot RT min 3V* [id number] 07/04/2019 1:25 PM FINDINGS: Bones/joints: No acute fracture or dislocation. Moderate narrowing of the medial compartment. Small tricompartmental osteophytes. Surgical clips within the medial knee. Small joint effusion. Superior patellar enthesophyte. Soft tissues: Normal. Vasculature: Vascular calcifications. XR/XR knee RT 3V* [id number] IMPRESSION: 1. No acute osseous findings. 2. Small joint effusion.
--- NOTE | 2024-04-14 21:07 | CTR_ITS ---
PROCEDURE INFORMATION: Exam: CT Head Without Contrast Exam date and time: 04/14/2024 9:18 PM Age: 83 years old Clinical indication: Injury or trauma; Fall; Blunt trauma (contusions or hematomas); Without loss of consciousness TECHNIQUE: Imaging protocol: Computed tomography of the head without contrast. Radiation optimization: All CT scans at this facility use at least one of these dose optimization techniques: automated exposure control; mA and/or kV adjustment per patient size (includes targeted exams where dose is matched to clinical indication); or iterative reconstruction. COMPARISON: CT head wo con* [id number] 12/26/2023 5:26 PM RADIATION DOSE METRICS: Total DLP (mGy-cm): 1188.58 FINDINGS: Brain: Similar generalized cortical volume loss. No hemorrhage. Periventricular and subcortical white matter hypodensities likely represent chronic small vessel ischemic changes. No mass effect. Cerebral ventricles: No ventriculomegaly. Paranasal sinuses: Visualized sinuses are unremarkable. No fluid levels. Mastoid air cells: Visualized mastoid air cells are well aerated. Bones: Unremarkable. No acute fracture. Soft tissues: Unremarkable. CT/CT head wo con* [id number] IMPRESSION: 1. No acute intracranial abnormality. 2. Chronic/age-related changes as above.
[2024-04-14 21:21] LABS: Basophils % 0.5 %; Eosinophils # 0.3 10^3/uL (0.0-0.8); Eosinophils % 3.6 %; Hematocrit 37.2 % (37-53); Lymphocytes # 1.7 10^3/uL (0.8-4.8); Lymphocytes % 18.8 %; Mean Corpuscular HGB Conc 33.6 g/dL (30-55); Mean Corpuscular Hemoglobin 30.5 pg (27-33); Mean Corpuscular Volume 90.7 fl (82-101); Mean Platelet Volume 9.1 fL (7.4-10.4); Monocytes # 0.6 10^3/uL (0.2-0.9); Monocytes % 6.8 %; Neutrophils # 6.14 10^3/uL (1.8-7.7); Nucleated Red Blood Cells % 0 %; Platelet Count 164 10^3/cmm (157-399); Red Cell Distribution Width 13.9 % (12.1-15.1); White Blood Count 8.78 10^3/uL (3.29-11.43)
[2024-04-14 21:35] LABS: INR 1.12 (0.8-1.2)
[2024-04-14 21:40] LABS: Albumin Level 3.5 g/dL (3.5-5.2); Alkaline Phosphatase 99 U/L (40-130); Anion Gap 12.8 (5-19); Aspartate Amino Transferase 10 U/L (0-40); Blood Urea Nitrogen 27 mg/dL (8-23); Calcium 9.1 mg/dL (8.5-10.5); Carbon Dioxide 26 mmol/L (22-29); Chloride 103 mmol/L (98-107); Creatinine Clr Calc Pharmacy 51.9249; Globulin 2.7 g/dL (1.3-4.6); Glucose 195 mg/dL (65-115); Osmolality Calculated 296 mOsm/kg (285-295); Potassium 3.8 mmol/L (3.5-5.1); Sodium 138 mmol/L (136-145); Total Bilirubin 0.5 mg/dL (0.15-1.2); Total Protein 6.2 g/dL (6.6-8.7)
[2024-04-14 21:50] LABS: Alanine Aminotransferase 13 U/L (0-41)
[2024-04-14 21:57] VITALS: BP 166/97; PULSE 79; RESP 22; O2SAT 90
[2024-04-14 22:57] LABS: Covid PCR NEGATIVE (Negative); Influenza A NEGATIVE (Negative); Influenza B NEGATIVE (Negative); Respiratory Syncytial Virus Ce NEGATIVE (Negative)
[2024-04-14 23:19] VITALS: BP 164/85; PULSE 83; RESP 16; O2SAT 91
[2024-04-14 23:33] LABS: Bilirubin Urine Negative (Negative); Blood Urine Negative (Negative); Glucose Urine UA 1+ (Normal); Ketones Urine Negative (Negative); Leukocyte Esterase Urine Negative (Negative); Nitrate Urine Negative (Negative); Protein Urine 1+ (Negative); Specific Gravity, Urine 1.022 (1.005-1.030); Urine Appearance Clear (CLEAR); Urine Color Yellow (Yellow); pH Urine 5.5 (5-7)
[2024-04-14 23:38] LABS: Add Urine Microscopic? YES; Bacteria Urine None Seen /hpf; Hyaline Casts Urine 1.21 /lpf; RBC Urine 0-2 /hpf (0-2); Squamous Epithelial Cell Urine 0-5 /hpf (0-5); WBC Urine 0-5 /hpf (0-5)
[2024-04-15 00:02] VITALS: BP 149/79; PULSE 83; RESP 16; O2SAT 94
[2024-04-15 00:42] VITALS: BP 162/73; PULSE 85; RESP 16; O2SAT 93
== END 2024-04-15 00:43 | disposition home or self-care (01) ==
PROVIDERS: Emergency Provider Emergency Medicine
DX: I48.0 Paroxysmal atrial fibrillation (principal); Z79.01 Long term (current) use of anticoagulants; Z79.82 Long term (current) use of aspirin; Z11.52 Encounter for screening for COVID-19; E11.22 Type 2 diabetes mellitus with diabetic chronic kidney disease; I13.0 Hypertensive heart and chronic kidney disease with heart failure and stage 1 through stage 4 chronic kidney disease, or unspecified chronic kidney disease; N18.9 Chronic kidney disease, unspecified; I50.9 Heart failure, unspecified; I25.10 Atherosclerotic heart disease of native coronary artery without angina pectoris
CPT/HCPCS: 36415; 70450; 71045; 73562; 80053; 81001; 85025; 85610; 87637; 93005; 99285

== ENCOUNTER 2024-07-19 18:49 | Emergency (ER) | payer OTHER, MEDICARE, SELFPAY ==
[2024-07-19 19:04] VITALS: BP 91/59; PULSE 96; RESP 16; TEMP 36.6; O2SAT 92; BMI 30.8
--- NOTE | 2024-07-19 19:55 | XRR_ITS ---
PROCEDURE INFORMATION: Exam: XR Right Wrist Exam date and time: 07/19/2024 8:14 PM Age: 83 years old Clinical indication: Pain; Wrist; Right; Additional info: Pain, injury TECHNIQUE: Imaging protocol: Radiologic exam of the right wrist. Views: 3 or more views. COMPARISON: No relevant prior studies available. FINDINGS: Bones/joints: No evidence of acute fracture or dislocation. There is diffuse carpometacarpal and radial sided intercarpal osteoarthritis. There is also prominent osteoarthritis at the 1st metacarpophalangeal joint. Soft tissues: No significant soft tissue swelling. No soft tissue gas or radiopaque foreign body. Vasculature: Advanced arterial calcification noted. 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 No evidence of acute fracture.
[2024-07-19 19:58] VITALS: BP 112/89; PULSE 89; RESP 16; O2SAT 91
--- NOTE | 2024-07-19 20:07 | W.ED.EXTPRO ---
HPI - Extremity Problem General: Chief complaint: Extremity Injury, Upper Stated complaint: R arm pain and swelling, has PTSD maybe bad dream Time Seen by Provider: 07/19/24 18:59 History of Present Illness: Patient is a pleasant 83-year-old male with history of A-fib on Eliquis and compliant, that presents to the ED with right wrist pain, and ecchymosis. Patient endorses a dream fits on occasion. This is from previous incident of PTSD. This a.m., patient awoke with a red alejandra to the posterior lateral aspect of the distal arm, with tenderness. Patient's daughter noted anterior mid arm proximal to this with ecchymosis that came on later in the day. No edema. Pain is noted on distal arm/wrist, otherwise patient is without complaints. Onset (ago): hour(s) (9) Associated symptoms: Deny chest pain or fever(s) Related Data Home Medications ?Medication ?Instructions ?Recorded ?Confirmed atorvastatin 80 mg tablet 80 mg PO QPM 03/31/19 07/30/23 calcium polycarbophil 625 mg tablet 1,250 mg PO DAILY 03/31/19 07/30/23 magnesium oxide 400 mg (241.3 mg 400 mg PO BID 03/31/19 07/30/23 magnesium) tablet (MagOx) omeprazole 20 mg tablet,delayed 20 mg PO BID 03/31/19 07/30/23 release cholecalciferol (vitamin D3) 50 2,000 unit PO QPM 02/14/20 07/30/23 mcg (2,000 unit) tablet (Vitamin D3) aspirin 81 mg tablet,delayed 81 mg PO BEDTIME 07/20/20 07/30/23 release finasteride 5 mg tablet 5 mg PO QPM 07/20/20 07/30/23 duloxetine 20 mg capsule,delayed 40 mg PO DAILY 09/05/22 07/30/23 release memantine 5 mg tablet 5 mg PO BID 09/05/22 07/30/23 semaglutide 0.25 mg or 0.5 mg (2 0.5 mg SUBCUT Q7D 09/05/22 07/30/23 mg/3 mL) subcutaneous pen injector (Ozempic) buspirone 10 mg tablet 5 mg PO TID 04/14/23 07/30/23 pyridoxine (vitamin B6) 100 mg 100 mg PO QAM 04/14/23 07/30/23 tablet (Vitamin B-6) vitamin B complex 2 tab PO QAM 04/14/23 07/30/23 acetaminophen 500 mg tablet 500 mg PO QID PRN Pain 07/09/23 07/30/23 carvedilol 3.125 mg tablet 3.125 mg PO BID 07/09/23 07/30/23 fluoride (sodium) 1.1 % dental 1 applic dental DAILY 07/09/23 07/30/23 cream (Sodium Fluoride 5000 Plus) furosemide 40 mg tablet 40 mg PO QAM PRN Edema 07/09/23 07/30/23 midodrine 10 mg tablet 10 mg PO TID PRN LOW BLOOD 07/09/23 07/30/23 omega 0-txf-ypd-fish oil 1,000 mg 1 cap PO BID 07/09/23 07/30/23 (120 mg-180 mg) capsule (Fish Oil) potassium chloride 20 mEq 20 meq PO DAILY PRN with lasix 07/09/23 07/30/23 tablet,extended release(part/cryst) insulin glargine 100 unit/mL 20 unit SUBCUT BEDTIME 07/30/23 07/30/23 subcutaneous solution (Lantus U-100 Insulin) Previous Rx's ?Medication ?Instructions ?Recorded tamsulosin 0.4 mg capsule 0.4 mg PO BID #180 caps 09/27/20 albuterol sulfate 90 mcg/actuation 2 inh inhalation Q4H PRN shortness 04/04/23 aerosol inhaler of breath or wheezing #6.7 grams diabetic shoes with 3 inserts #1 ea 05/29/23 apixaban 5 mg tablet (Eliquis) See Rx Instructions .Route 08/05/23 .COMPLEX #90 tabs Allergies Allergy/AdvReac Type Severity Reaction Status Date / Time lisinopril Allergy ALGY-Rash Verified 11/20/23 13:54 Review of Systems General: Reports: 10 or more systems reviewed and unremarkable except in HPI and below Const: Denies: fever(s), chills, change in weight or fatigue Card: Denies: chest pain, palpitations or swelling of feet/ankles Resp: Denies: dyspnea or productive cough GI: Denies: abdominal pain, nausea, vomiting or constipation Musc: Reports: extremity pain, joint pain and joint stiffness; Denies: extremity swelling, joint swelling, joint redness or joint warmth Neuro: Reports: involuntary movements (While sleeping); Denies: numbness in extremities, sensory changes, frequent falls or dizziness Psych: Denies: anxiety or depression PFSH ED PFSH: Medical History Depression Chronic kidney disease Hyperlipidemia Atrial fibrillation Urgency incontinence Benign prostatic hyperplasia with lower urinary tract symptoms Urolithiasis Carotid bruit Syncope Diabetes mellitus Hypertension CHF (congestive heart failure) CAD (coronary artery disease) This patient had a coronary bypass surgery in 2008 along with a mitral valve repair and a maze procedure, at the [facility] in [place]. Surgical History History of tonsillectomy and adenoidectomy History of loop recorder placed late 2020 or early 2021 H/O carpal tunnel repair bilateral S/P trigger finger release History of maze procedure History of mitral valve replacement with bioprosthetic valve S/P ureteral stent placement Hx of CABG Family History Mother , AT AGE 86 No problems noted. Father , AT AGE 65 Stroke Other Hyperlipidemia Hypertension Social History Smoking and tobacco/nicotine status: unknown if used tobacco/nicotine Alcohol intake: never Substance/Drug Use: never Lives independently: Yes Marital status: / Current occupational status: retired Physical Exam Const: COMMON NORMALS: patient oriented x3 and alert ORIENTATION/CONSCIOUSNESS: Yes oriented to person, Yes oriented to place and Yes oriented to time : COMMON NORMALS: Yes no CVA tenderness BLADDER/KIDNEY EXAM: Yes no CVA tenderness Back/Pelvis: COMMON NORMALS: no CVA tenderness THORACIC SPINE/UPPER BACK: Yes normal to inspection and Yes thoracic ROM normal LUMBAR SPINE/LOWER BACK: Yes normal to inspection and Yes lumbar ROM normal PELVIS: Yes buttocks normal Extremity: COMMON NORMALS: full ROM and capillary refill normal RIGHT UPPER EXTREMITY: Yes hand & digits Right hand and digits: Yes palpation (pain on lateral proximal hand with small raised contusion) and Yes hand special tests EXTREMITY IMAGE (FRONT):  1. small contusion 2. ecchymosis Neuro: COMMON NORMALS: patient oriented x3 and CN's II-XII intact bilaterally SENSORIUM/ORIENTATION: Yes alert, Yes oriented to person, Yes oriented to place and Yes oriented to time Psych: COMMON NORMALS: cooperative APPEARANCE: Yes grossly normal ATTITUDE: Yes calm Skin: GENERAL SKIN EXAM: ecchymosis (right proximal arm) Course Vital Signs: Vital signs: Vital Signs Temperature 97.9 F 07/19/24 19:04 Pulse Rate 88 07/19/24 21:04 Respiratory Rate 16 07/19/24 21:04 Blood Pressure 158/90 07/19/24 21:04 Pulse Oximetry 95 07/19/24 21:04 Oxygen Delivery Me thod Room Air 07/19/24 19:58 MDM - Extremity (Nontraumatic) Medical Decision Making Patient is a 83-year-old male that is on Eliquis, and presents with pain in right wrist, and history of dream fits. He awoke with pain in his right wrist, and later proximally had some ecchymosis. This happened this morning. He does not have any swelling. I am not concerned regarding hematoma at this time. X-ray does not show any acute fracture although patient does have pain in his right wrist. Given the pain, patient will be treated with a Velcro splint. He will be instructed to utilize Tylenol for pain control. Avoid narcotics given somewhat soft blood pressure and fall risk with current injury. No other red flags. Additional differentials would be associated with right wrist/navicular fracture. Official read is pending. 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 No evidence of acute fracture. XR interpretation done by ED provider, pending radiology final review Discharge Plan Discharge Patient Disposition: Home Clinical Impression: Sprain and strain of right wrist Condition: Stable Prescriptions: No Action tamsulosin 0.4 mg capsule 0.4 mg PO BID Qty: 180 3RF memantine 5 mg tablet 5 mg PO BID duloxetine 20 mg capsule,delayed release(DR/EC) 40 mg PO DAILY Ozempic 0.25 mg or 0.5 mg (2 mg/3 mL) pen injector 0.5 mg SUBCUT Q7D Rx Instructions: ON THURSDAY (DME) diabetic shoes with 3 inserts See Rx Instructions .Route .MEDSUPPLY Qty: 1 0RF Rx Instructions: As directed to the sigrid woo Eliquis 5 mg tablet See Rx Instructions .ROUTE .COMPLEX Qty: 90 3RF Dose Instruction: TAKE ONE-HALF TABLET BY MOUTH TWICE A DAY FOR ATRIAL FIBRILLATION. THIS TABLET IS TO BE CUT IN HALF FOR YOUR DOSE Rx Instructions: TAKE ONE-HALF TABLET BY MOUTH TWICE A DAY FOR ATRIAL FIBRILLATION. THIS TABLET IS TO BE CUT IN HALF FOR YOUR DOSE atorvastatin 80 mg Tablet 80 mg PO QPM magnesium oxide [MagOx] 400 mg (241.3 mg magnesium) Tablet 400 mg PO BID calcium polycarbophil 625 mg Tablet 1,250 mg PO DAILY omeprazole 20 mg Tablet,Delayed Release (Dr/Ec) 20 mg PO BID cholecalciferol (vitamin D3) [Vitamin D3] 50 mcg (2,000 unit) tablet 2,000 unit PO QPM aspirin 81 mg Tablet,Delayed Release (Dr/Ec) 81 mg PO BEDTIME finasteride 5 mg Tablet 5 mg PO QPM buspirone 10 mg Tablet 5 mg PO TID vitamin B complex Tablet 2 tab PO QAM pyridoxine (vitamin B6) [Vitamin B-6] 100 mg Tablet 100 mg PO QAM furosemide 40 mg tablet 40 mg PO QAM PRN (Reason: Edema) acetaminophen 500 mg Tablet 500 mg PO QID PRN (Reason: Pain) carvedilol 3.125 mg Tablet 3.125 mg PO BID Rx Instructions: must administer with a meal/food potassium chloride 20 mEq tablet,ER particles/crystals 20 meq PO DAILY PRN (Reason: with lasix) midodrine 10 mg tablet 10 mg PO TID PRN (Reason: LOW BLOOD) fluoride (sodium) [Sodium Fluoride 5000 Plus] 1.1 % Cream 1 applic DENTAL DAILY omega 5-ccc-vks-fish oil [Fish Oil] 1,000 mg (120 mg-180 mg) Capsule 1 cap PO BID albuterol sulfate 90 mcg/actuation HFA aerosol inhaler 2 inh INHALATION Q4H PRN (Reason: shortness of breath or wheezing) Qty: 6.7 1RF Lantus U-100 Insulin 100 unit/mL solution 20 unit SUBCUT BEDTIME Discharge Orders: Discharge Order (Routine); Ordered 07/19/24 Ordered By: Clare Womack Discharge ED (Routine); Ordered 07/19/24 Ordered By: Clare Womack Referrals: Lena Orellana MD [Primary Care Provider, Family Practice] Discharge Diet: Usual diet Discharge Activity: Increase activity as tolerated Patient Instructions: Wrist Sprain (ED) Activity Restrictions/Additional Instructions: Wear Velcro splint as directed to help with pain. Repeat x-ray in 1 week with your primary care if you still have pain. Elevate (above your heart), and apply ice 20 minutes on/20 minutes off and may repeat, at least 3 times a day, on top of Velcro splint. If this area swells, or there is additional concern, return to ED for additional imaging. Tylenol for pain. Avoid narcotics given soft blood pressure. Return to ED for further issues. Print Language: French Coding Level of Care Code ED Truck Service Technician for Nathaniel Alicea
[2024-07-19 21:04] VITALS: BP 158/90; PULSE 88; RESP 16; O2SAT 95
== END 2024-07-19 21:05 | disposition home or self-care (01) ==
PROVIDERS: Emergency Provider Physician Assistant; PCP Family Medicine
DX: S63.501A Unspecified sprain of right wrist, initial encounter (principal); Z79.01 Long term (current) use of anticoagulants; Z79.82 Long term (current) use of aspirin; I25.10 Atherosclerotic heart disease of native coronary artery without angina pectoris; E78.5 Hyperlipidemia, unspecified; E11.22 Type 2 diabetes mellitus with diabetic chronic kidney disease; I13.0 Hypertensive heart and chronic kidney disease with heart failure and stage 1 through stage 4 chronic kidney disease, or unspecified chronic kidney disease; N18.9 Chronic kidney disease, unspecified; I50.9 Heart failure, unspecified; X58.XXXA Exposure to other specified factors, initial encounter
CPT/HCPCS: 73110; 99283

== ENCOUNTER 2024-07-25 00:29 | Emergency (ER) | payer OTHER, MEDICARE, SELFPAY ==
[2024-07-25] VITALS (7 sets, daily range): BP systolic 103–168; BP diastolic 62–88; PULSE 79–95; RESP 12–21; TEMP 36.7; O2SAT 93–97; BMI 30.8
--- NOTE | 2024-07-25 00:44 | ECG_ITS ---
Flutter Test Date: 2024-07-25 Pat Name: Jose Armendariz Department: Room: Gender: Male Paying Teller: : 1940 Requested By: Spencer Vázquez Order Number: [id number] Jose MD: Pippa Zimmerman M.D. Measurements Intervals [place] Rate: 84 P: 83 [place]: 225 QRS: 57 QRSD: 141 T: -26 QT: 376 QTc: 445 Interpretive Statements Atrial fibrillation with PVCs RIGHT BUNDLE BRANCH BLOCK [120+ ms QRS DURATION, UPRIGHT V1, 40+ ms S IN I/aVL/V4/V5/V6] MODERATE T-WAVE ABNORMALITY, CONSIDER INFERIOR ISCHEMIA [-0.1+ mV T-WAVE IN II/aVF] Compared to ECG 04/14/2024 20:01:58 T-wave abnormality now present Possible ischemia now present Aberrant conduction of supraventricular beat(s) no longer present Electronically Signed On 07-26-2024 06:32:29 CDT by Pippa Zimmerman M.D. [email or web address]
--- NOTE | 2024-07-25 01:02 | XRR_ITS ---
PROCEDURE INFORMATION: Exam: XR Chest Exam date and time: 07/25/2024 1:05 AM Age: 83 years old Clinical indication: Prior surgery; Surgery date: 6+ months; Surgery type: Cabg. Loop recorder; EMS arrival for near syncope. Bradycardic on monitor. TECHNIQUE: Imaging protocol: Radiologic exam of the chest. Views: 1 view. COMPARISON: CR XR chest 1V portable [id number] 04/14/2024 9:25 PM FINDINGS: Lungs: Left lower lobe atelectasis versus infiltrate. Pleural spaces: Unremarkable. No pleural effusion. No pneumothorax. Heart/Mediastinum: Cardiomegaly. Bones/joints: Sternotomy wires. XR/XR chest 1V portable [id number] IMPRESSION: 1. Cardiomegaly. 2. Sternotomy wires. 3. Left lower lobe atelectasis versus infiltrate.
--- NOTE | 2024-07-25 01:08 | W.ED.ARRPALP ---
HPI - Arrhythmia/Palpitations General: Chief Complaint: Arrhythmia/Palpitations Stated Complaint: LOW HR Time Seen by Provider: 07/25/24 00:41 History of Present Illness: 83-year-old male patient with a history of atrial fibrillation. He states that he is a candidate for pacemaker placement based on recent studies. He states that he fell at home. He did not syncopized. He was not overly symptomatic prior to the fall. He states that he fell into his chair, which broke, but he landed softly. He did not hit his head, and is in no pain after his fall. His heart rate was low according to his family, so they called EMS. On EMS arrival, his rate was in the 80s. He was slightly hypertensive. He wears oxygen at home. He wears CPAP at night. Related Data Home Medications ?Medication ?Instructions ?Recorded ?Confirmed atorvastatin 80 mg tablet 80 mg PO QPM 03/31/19 07/30/23 calcium polycarbophil 625 mg tablet 1,250 mg PO DAILY 03/31/19 07/30/23 magnesium oxide 400 mg (241.3 mg 400 mg PO BID 03/31/19 07/30/23 magnesium) tablet (MagOx) omeprazole 20 mg tablet,delayed 20 mg PO BID 03/31/19 07/30/23 release cholecalciferol (vitamin D3) 50 2,000 unit PO QPM 02/14/20 07/30/23 mcg (2,000 unit) tablet (Vitamin D3) aspirin 81 mg tablet,delayed 81 mg PO BEDTIME 07/20/20 07/30/23 release finasteride 5 mg tablet 5 mg PO QPM 07/20/20 07/30/23 duloxetine 20 mg capsule,delayed 40 mg PO DAILY 09/05/22 07/30/23 release memantine 5 mg tablet 5 mg PO BID 09/05/22 07/30/23 semaglutide 0.25 mg or 0.5 mg (2 0.5 mg SUBCUT Q7D 09/05/22 07/30/23 mg/3 mL) subcutaneous pen injector (Ozempic) buspirone 10 mg tablet 5 mg PO TID 04/14/23 07/30/23 pyridoxine (vitamin B6) 100 mg 100 mg PO QAM 04/14/23 07/30/23 tablet (Vitamin B-6) vitamin B complex 2 tab PO QAM 04/14/23 07/30/23 acetaminophen 500 mg tablet 500 mg PO QID PRN Pain 07/09/23 07/30/23 carvedilol 3.125 mg tablet 3.125 mg PO BID 07/09/23 07/30/23 fluoride (sodium) 1.1 % dental 1 applic dental DAILY 07/09/23 07/30/23 cream (Sodium Fluoride 5000 Plus) furosemide 40 mg tablet 40 mg PO QAM PRN Edema 07/09/23 07/30/23 midodrine 10 mg tablet 10 mg PO TID PRN LOW BLOOD 07/09/23 07/30/23 omega 7-iop-prj-fish oil 1,000 mg 1 cap PO BID 07/09/23 07/30/23 (120 mg-180 mg) capsule (Fish Oil) potassium chloride 20 mEq 20 meq PO DAILY PRN with lasix 07/09/23 07/30/23 tablet,extended release(part/cryst) insulin glargine 100 unit/mL 20 unit SUBCUT BEDTIME 07/30/23 07/30/23 subcutaneous solution (Lantus U-100 Insulin) Previous Rx's ?Medication ?Instructions ?Recorded tamsulosin 0.4 mg capsule 0.4 mg PO BID #180 caps 09/27/20 albuterol sulfate 90 mcg/actuation 2 inh inhalation Q4H PRN shortness 04/04/23 aerosol inhaler of breath or wheezing #6.7 grams diabetic shoes with 3 inserts #1 ea 05/29/23 apixaban 5 mg tablet (Eliquis) See Rx Instructions .Route 08/05/23 .COMPLEX #90 tabs Allergies Allergy/AdvReac Type Severity Reaction Status Date / Time lisinopril Allergy ALGY-Rash Verified 11/20/23 13:54 [facility] ED PFS: Medical History Depression Chronic kidney disease Hyperlipidemia Atrial fibrillation Urgency incontinence Benign prostatic hyperplasia with lower urinary tract symptoms Urolithiasis Carotid bruit Syncope Diabetes mellitus Hypertension CHF (congestive heart failure) CAD (coronary artery disease) This patient had a coronary bypass surgery in 2008 along with a mitral valve repair and a maze procedure, at the [facility] in [place]. Surgical History History of tonsillectomy and adenoidectomy History of loop recorder placed late 2020 or early 2021 H/O carpal tunnel repair bilateral S/P trigger finger release History of maze procedure History of mitral valve replacement with bioprosthetic valve S/P ureteral stent placement Hx of CABG Family History Mother , AT AGE 86 No problems noted. Father , AT AGE 65 Stroke Other Hyperlipidemia Hypertension Social History Smoking and tobacco/nicotine status: unknown if used tobacco/nicotine Alcohol intake: never Substance/Drug Use: never Lives independently: Yes Marital status: / Current occupational status: retired Physical Exam Const: COMMON NORMALS: no acute distress GENERAL APPEARANCE: cooperative; not ill appearing and not frail appearing HENMT: COMMON NORMALS: normocephalic, atraumatic and Normal external nose present HEAD & SCALP: normocephalic and atraumatic FACE & SINUS: normal facial exam and face symmetric NOSE: Normal external nose present Eye: COMMON NORMALS: Equal, round and reactive pupils present and EOMs intact bilaterally PUPIL: Yes Equal, round and reactive pupils present Neck/C-Spine: GENERAL: Yes trachea midline Chest: CHEST: Yes Symmetrical chest wall rise Resp: COMMON NORMALS: normal respiratory effort, No retractions, No use of accessory muscles and clear to auscultation bilaterally AUSCULTATION: clear to auscultation bilaterally Cardio: COMMON NORMALS: regular rate RATE: regular rate RHYTHM: abnormal rhythm irregularly irregular GI: COMMON NORMALS: Normal to inspection, nondistended, normoactive bowel sounds present Extremity: COMMON NORMALS: no pedal edema Neuro: LANDY COMA SCALE: document GCS findings Landy coma scale eye opening: Spontaneous Landy coma scale verbal response: Orientated Landy coma scale motor response: Obey commands [place] coma scale total score: 15 SENSORY EXAM: Yes extremities (intact) Psych: COMMON NORMALS: speech normal SPEECH: Yes normal speech Skin: COMMON NORMALS: no rashes or lesions noted GENERAL SKIN EXAM: no rashes or lesions noted Course Vital Signs: Vital signs: Vital Signs Temperature 98.0 F 07/25/24 00:33 Pulse Rate 95 07/25/24 05:05 Respiratory Rate 13 07/25/24 05:05 Blood Pressure 151/87 07/25/24 05:05 Pulse Oximetry 94 07/25/24 05:05 Oxygen Delivery Me thod Nasal Cannula 07/25/24 01:30 Oxygen Flow Rate 2 07/25/24 00:33 MDM - Arrhythmia/Palpitations Medical Decision Making Vitals are stable currently. Blood pressure 103/62. He is afebrile. Saturations are above 95% on 2 L. CBC is not remarkable. Left lower lobe atelectasis on chest x-ray. EKG shows a sinus rhythm with infrequent PVCs. No acute ST wave changes. Rate is 85. There is a right bundle branch block present. Cardiac enzymes did not elevate it two hours. other serum testing was not remarkable. He has not had any significant bradycardia or complete heart block on the monitor. he will be allowed discharge. to return for any repeated episodes, or other concerning symptoms. Close outpatient follow up. Lab Data 07/25/24 01:21 07/25/24 01:21 Radiology Impressions Chest X-Ray 07/25/24 01:02 IMPRESSION: 1. Cardiomegaly. 2. Sternotomy wires. 3. Left lower lobe atelectasis versus infiltrate. Laboratory Results WBC 10.25 10^3/uL (3.29-11.43) 07/25/24 01:21 RBC 4.23 10^6/uL (3.85-5.65) 07/25/24 01:21 Hgb 12.80 g/dL (11.27-16.99) 07/25/24 01:21 Hct 37.8 % (37-53) 07/25/24 01:21 MCV 89.4 fl (82-101) 07/25/24 01:21 MCH 30.3 pg (27-33) 07/25/24 01:21 MCHC 33.9 g/dL (30-55) 07/25/24 01:21 RDW 14.0 % (12.1-15.1) 07/25/24 01:21 Plt Count 143 10^3/cmm (157-399) L 07/25/24 01:21 MPV 9.6 fL (7.4-10.4) 07/25/24 01:21 Neut % (Auto) 77.6 % 07/25/24 01:21 Lymph % (Auto) 12.7 % 07/25/24 01:21 Morton % (Auto) 6.8 % 07/25/24 01:21 Eos % (Auto) 2.1 % 07/25/24 01:21 Baso % (Auto) 0.4 % 07/25/24 01:21 Neut # (Auto) 7.95 10^3/uL (1.8-7.7) H 07/25/24 01:21 Lymph # (Auto) 1.3 10^3/uL (0.8-4.8) 07/25/24 01:21 Morton # (Auto) 0.7 10^3/uL (0.2-0.9) 07/25/24 01:21 Eos # (Auto) 0.2 10^3/uL (0.0-0.8) 07/25/24 01:21 Baso # (Auto) 0.0 10^3/uL (0.0-0.1) 07/25/24 01:21 Nucleated RBC % (auto) 0 % 07/25/24 01:21 Nucleated RBCs # 0.0 /100WBC 07/25/24 01:21 PT 15.90 SECONDS (12.1-14.9) H 07/25/24 01:21 INR 1.19 (0.8-1.2) 07/25/24 01:21 APTT 40.8 SECONDS (23.9-36.7) H 07/25/24 01:21 Sodium 138 mmol/L (136-145) 07/25/24 01:21 Potassium 4.0 mmol/L (3.5-5.1) 07/25/24 01:21 Chloride 101 mmol/L (98-107) 07/25/24 01:21 Carbon Dioxide 27 mmol/L (22-29) 07/25/24 01:21 Anion Gap 14.0 (5-19) 07/25/24 01:21 BUN 31 mg/dL (8-23) H 07/25/24 01:21 Creatinine 1.3 mg/dL (0.7-1.2) H 07/25/24 01:21 GFR Calculation Not Reportable 07/25/24 01:21 Glucose 173 mg/dL (65-115) H 07/25/24 01:21 Calculated Osmolality 297 mOsm/kg (285-295) H 07/25/24 01:21 Calcium 9.3 mg/dL (8.5-10.5) 07/25/24 01:21 Magnesium 1.7 mg/dL (1.7-2.3) 07/25/24 01:21 Total Bilirubin 0.5 mg/dL (0.15-1.2) 07/25/24 01:21 AST 10 U/L (0-40) 07/25/24 01:21 ALT 10 U/L (0-41) 07/25/24 01:21 Alkaline Phosphatase 96 U/L (40-130) 07/25/24 01:21 Troponin T Baseline 33 ng/L (0-15) H 07/25/24 01:21 Troponin T 120 Minute 33.03 ng/L (0-15) H 07/25/24 03:12 Delta Troponin T 0.03 ABS# (0-10) 07/25/24 03:12 NT-Pro-B Natriuret Pep 787 pg/mL (0-450) H 07/25/24 01:21 Total Protein 6.0 g/dL (6.6-8.7) L 07/25/24 01:21 Albumin 3.7 g/dL (3.5-5.2) 07/25/24 01:21 Globulin 2.3 g/dL (1.3-4.6) 07/25/24 01:21 TSH 4.19 uIU/mL (0.27-4.20) 07/25/24 01:21 Urine Color Yellow (Yellow) 07/25/24 01:38 Urine Appearance Clear (CLEAR) 07/25/24 01:38 Urine pH 5.5 (5-7) 07/25/24 01:38 Ur Specific Clayton 1.022 (1.005-1.030) 07/25/24 01:38 Urine Protein Trace (Negative) A 07/25/24 01:38 Urine Glucose (UA) Negative (Normal) 07/25/24 01:38 Urine Ketones Negative (Negative) 07/25/24 01:38 Urine Blood Negative (Negative) 07/25/24 01:38 Urine Nitrate Negative (Negative) 07/25/24 01:38 Urine Bilirubin Negative (Negative) 07/25/24 01:38 Urine Urobilinogen 1.0 mg/dL (Negative) 07/25/24 01:38 Ur Leukocyte Esterase Negative (Negative) 07/25/24 01:38 Urine RBC 0-2 /hpf (0-2) 07/25/24 01:38 Urine WBC 0-5 /hpf (0-5) 07/25/24 01:38 Ur Squamous Epith Cells 0-5 /hpf (0-5) 07/25/24 01:38 Urine Bacteria None seen /hpf (NONE) 07/25/24 01:38 Hyaline Casts 2.05 /lpf 07/25/24 01:38 All radiology interpretation(s) finalized by discharge Discharge Plan Discharge Patient Disposition: Home Clinical Impression: Bradycardia Condition: Stable Prescriptions: No Action tamsulosin 0.4 mg capsule 0.4 mg PO BID Qty: 180 3RF memantine 5 mg tablet 5 mg PO BID duloxetine 20 mg capsule,delayed release(DR/EC) 40 mg PO DAILY Ozempic 0.25 mg or 0.5 mg (2 mg/3 mL) pen injector 0.5 mg SUBCUT Q7D Rx Instructions: ON THURSDAY (DME) diabetic shoes with 3 inserts See Rx Instructions .Route .MEDSUPPLY Qty: 1 0RF Rx Instructions: As directed to the shoe chilo Eliquis 5 mg tablet See Rx Instructions .ROUTE .COMPLEX Qty: 90 3RF Dose Instruction: TAKE ONE-HALF TABLET BY MOUTH TWICE A DAY FOR ATRIAL FIBRILLATION. THIS TABLET IS TO BE CUT IN HALF FOR YOUR DOSE Rx Instructions: TAKE ONE-HALF TABLET BY MOUTH TWICE A DAY FOR ATRIAL FIBRILLATION. THIS TABLET IS TO BE CUT IN HALF FOR YOUR DOSE atorvastatin 80 mg Tablet 80 mg PO QPM magnesium oxide [MagOx] 400 mg (241.3 mg magnesium) Tablet 400 mg PO BID calcium polycarbophil 625 mg Tablet 1,250 mg PO DAILY omeprazole 20 mg Tablet,Delayed Release (Dr/Ec) 20 mg PO BID cholecalciferol (vitamin D3) [Vitamin D3] 50 mcg (2,000 unit) tablet 2,000 unit PO QPM aspirin 81 mg Tablet,Delayed Release (Dr/Ec) 81 mg PO BEDTIME finasteride 5 mg Tablet 5 mg PO QPM buspirone 10 mg Tablet 5 mg PO TID vitamin B complex Tablet 2 tab PO QAM pyridoxine (vitamin B6) [Vitamin B-6] 100 mg Tablet 100 mg PO QAM furosemide 40 mg tablet 40 mg PO QAM PRN (Reason: Edema) acetaminophen 500 mg Tablet 500 mg PO QID PRN (Reason: Pain) carvedilol 3.125 mg Tablet 3.125 mg PO BID Rx Instructions: must administer with a meal/food potassium chloride 20 mEq tablet,ER particles/crystals 20 meq PO DAILY PRN (Reason: with lasix) midodrine 10 mg tablet 10 mg PO TID PRN (Reason: LOW BLOOD) fluoride (sodium) [Sodium Fluoride 5000 Plus] 1.1 % Cream 1 applic DENTAL DAILY omega 3-mfs-mnr-fish oil [Fish Oil] 1,000 mg (120 mg-180 mg) Capsule 1 cap PO BID albuterol sulfate 90 mcg/actuation HFA aerosol inhaler 2 inh INHALATION Q4H PRN (Reason: shortness of breath or wheezing) Qty: 6.7 1RF Lantus U-100 Insulin 100 unit/mL solution 20 unit SUBCUT BEDTIME Discharge Orders: Discharge ED (Routine); Ordered 07/25/24 Ordered By: Spencer Diaz Referrals: Lena Orellana MD [Primary Care Provider, Family Practice] - 1-3 days Patient Instructions: Opioid Safety, Pain Management Activity Restrictions/Additional Instructions: Follow-up with your doctor. Give them a call later today. Return for repeated falls, syncope or passing out, chest discomfort, shortness of breath, or other concerning symptoms. Print Language: Hungarian Coding Level of Care Code ED Java Groovy Developer for Nathaniel Alicea
[2024-07-25 01:33] LABS: Basophils % 0.4 %; Eosinophils # 0.2 10^3/uL (0.0-0.8); Eosinophils % 2.1 %; Hematocrit 37.8 % (37-53); Lymphocytes # 1.3 10^3/uL (0.8-4.8); Lymphocytes % 12.7 %; Mean Corpuscular HGB Conc 33.9 g/dL (30-55); Mean Corpuscular Hemoglobin 30.3 pg (27-33); Mean Corpuscular Volume 89.4 fl (82-101); Mean Platelet Volume 9.6 fL (7.4-10.4); Monocytes # 0.7 10^3/uL (0.2-0.9); Monocytes % 6.8 %; Neutrophils # 7.95 10^3/uL (1.8-7.7); Neutrophils % 77.6 %; Nucleated Red Blood Cells % 0 %; Platelet Count 143 10^3/cmm (157-399); Red Blood Count 4.23 10^6/uL (3.85-5.65); White Blood Count 10.25 10^3/uL (3.29-11.43)
[2024-07-25 01:52] LABS: Bilirubin Urine Negative (Negative); Blood Urine Negative (Negative); Glucose Urine UA Negative (Normal); Ketones Urine Negative (Negative); Leukocyte Esterase Urine Negative (Negative); Nitrate Urine Negative (Negative); Protein Urine Trace (Negative); Specific Gravity, Urine 1.022 (1.005-1.030); Urine Appearance Clear (CLEAR); Urine Color Yellow (Yellow); pH Urine 5.5 (5-7)
[2024-07-25 01:57] LABS: Add Urine Microscopic? YES; Bacteria Urine None Seen /hpf; Hyaline Casts Urine 2.05 /lpf; RBC Urine 0-2 /hpf (0-2); Squamous Epithelial Cell Urine 0-5 /hpf (0-5); WBC Urine 0-5 /hpf (0-5)
[2024-07-25 01:58] LABS: INR 1.19 (0.8-1.2)
[2024-07-25 01:59] LABS: Partial Thromboplastin Time 40.8 SECONDS (23.9-36.7)
[2024-07-25 02:00] LABS: Troponin(5th) Baseline 33 ng/L (0-15)
[2024-07-25 02:10] LABS: Alanine Aminotransferase 10 U/L (0-41); Albumin Level 3.7 g/dL (3.5-5.2); Alkaline Phosphatase 96 U/L (40-130); Aspartate Amino Transferase 10 U/L (0-40); Blood Urea Nitrogen 31 mg/dL (8-23); Calcium 9.3 mg/dL (8.5-10.5); Carbon Dioxide 27 mmol/L (22-29); Chloride 101 mmol/L (98-107); Creatinine Clr Calc Pharmacy 48.9252; Globulin 2.3 g/dL (1.3-4.6); Glucose 173 mg/dL (65-115); Magnesium 1.7 mg/dL (1.7-2.3); NT Pro B Type Natriuretic Pept 787 pg/mL (0-450); Osmolality Calculated 297 mOsm/kg (285-295); Sodium 138 mmol/L (136-145); Thyroid Stimulating Hormone 4.19 uIU/mL (0.27-4.20); Total Bilirubin 0.5 mg/dL (0.15-1.2)
[2024-07-25 04:02] LABS: Troponin 5 2HR 33.03 ng/L (0-15); Troponin 5 2HR Delta 0.03 ABS# (0-10)
== END 2024-07-25 04:45 | disposition home or self-care (01) ==
PROVIDERS: Emergency Provider Emergency Medicine; PCP Family Medicine
DX: R00.1 Bradycardia, unspecified (principal); Z79.01 Long term (current) use of anticoagulants; Z79.82 Long term (current) use of aspirin; Z95.1 Presence of aortocoronary bypass graft; I25.10 Atherosclerotic heart disease of native coronary artery without angina pectoris; E78.5 Hyperlipidemia, unspecified; E11.22 Type 2 diabetes mellitus with diabetic chronic kidney disease; I13.0 Hypertensive heart and chronic kidney disease with heart failure and stage 1 through stage 4 chronic kidney disease, or unspecified chronic kidney disease; N18.9 Chronic kidney disease, unspecified; I50.9 Heart failure, unspecified
CPT/HCPCS: 36415; 71045; 80053; 81001; 83735; 83880; 84443; 84484; 85025; 85610; 85730; 93005; 99285

== ENCOUNTER 2024-11-21 23:19 | Emergency (ER) | payer OTHER, SELFPAY ==
[2024-11-21 23:22] VITALS: BP 132/78; PULSE 92; RESP 15; TEMP 36.4; O2SAT 93; BMI 29.1
--- OUTSIDE RECORDS SUMMARY | 2024-11-21 23:31 | XMS_ITS | Encounter Summary ---
Author Organization [facility] Address 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 [address] [place] [address] [phone] Favio Polanco MD [address] [place] [address] [phone] documented as of this encounter Visit Diagnoses Not on filedocumented in this encounter Additional Health Concerns Infection Onset Date Last Indicated Resolved Time R/O COVID-19 05/15/2024 05/15/2024 05/15/2024 1:12 PM CDT documented as of this encounter Care Teams Swimmer Relationship Specialty Start Date End Date Sam Fay MD PCP - General Emergency Medicine 12/22/18 documented as of this encounter
--- OUTSIDE RECORDS SUMMARY | 2024-11-21 23:31 | XMS_ITS | Encounter Summary ---
Author Organization [facility] Address 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 Gender Identity Not on file Sexual Orientation Not on file documented as of this encounter Plan of Treatment Upcoming Encounters Date Type Department Care Team (Late st Contact Info) Description 06/26/2025 2:45 PM CDT Office Visit [facility] [address] [place] [address] [phone] Favio Polanco MD [address] [place] [address] [phone] documented as of this encounter Visit Diagnoses Not on filedocumented in this encounter Additional Health Concerns Infection Onset Date Last Indicated Resolved Time R/O COVID-19 05/15/2024 05/15/2024 05/15/2024 1:12 PM CDT documented as of this encounter Care Teams Commodity Supervisor Relationship Specialty Start Date End Date Sam Fay MD PCP - General Emergency Medicine 12/22/18 documented as of this encounter
--- OUTSIDE RECORDS SUMMARY | 2024-11-21 23:31 | XMS_ITS | Encounter Summary ---
Author Organization [facility] Address [address] [place] [address] Care Team Providers Care Rim Fire Priming Operator Name Role Phone Sam Fay MD Primary Care Provider [phone] Encounter Details Date Type Department Care Team (Late st Contact Info) Description 02/03/2000 Outpatient Historical [facility] Primary Care - [address] [place] [address] Massimo Piña, DO NO ADDRESS ON FILE Social History Tobacco Use Types Packs/Day Years Used Date Smoking Tobacco: Never Assessed Sex and Gender Information Value Date Recorded Sex Assigned at Not on file Legal Sex Male 8:53 PM FURNACE LINER Gender Identity Not on file Sexual Orientation Not on file documented as of this encounter Plan of Treatment Upcoming Encounters Date Type Department Care Team (Late st Contact Info) Description 06/26/2025 2:45 PM CDT Office Visit [facility] [address] [place] [phone] Favio Polanco MD [address] [place] [address] [phone] documented as of this encounter Visit Diagnoses Not on filedocumented in this encounter Additional Health Concerns Infection Onset Date Last Indicated Resolved Time R/O COVID-19 05/15/2024 05/15/2024 05/15/2024 1:12 PM CDT documented as of this encounter Care Teams Rim Fire Priming Operator Relationship Specialty Start Date End Date Sam Fay MD PCP - General Emergency Medicine 12/22/18 documented as of this encounter
--- OUTSIDE RECORDS SUMMARY | 2024-11-21 23:31 | XMS_ITS | Encounter Summary ---
Author Organization [facility] Address 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 Gender Identity Not on file Sexual Orientation Not on file documented as of this encounter Plan of Treatment Upcoming Encounters Date Type Department Care Team (Late st Contact Info) Description 06/26/2025 2:45 PM CDT Office Visit [facility] [address] [place] [address] [phone] Favio Polanco MD [address] [place] [address] [phone] documented as of this encounter Visit Diagnoses Not on filedocumented in this encounter Additional Health Concerns Infection Onset Date Last Indicated Resolved Time R/O COVID-19 05/15/2024 05/15/2024 05/15/2024 1:12 PM CDT documented as of this encounter Care Teams Manufacturing Cost Estimator Relationship Specialty Start Date End Date Sam Fay MD PCP - General Emergency Medicine 12/22/18 documented as of this encounter
--- OUTSIDE RECORDS SUMMARY | 2024-11-21 23:31 | XMS_ITS | Encounter Summary ---
Author Organization [facility] Address [address] [place] [address] Care Team Providers Care Heel Builder Machine Name Role Phone Sam Fay MD Primary Care Provider [phone] Encounter Details Date Type Department Care Team (Late st Contact Info) Description 08/13/2004 Outpatient Historical [facility] Primary Care - [address] [place] [address] Massimo Piña, DO NO ADDRESS ON FILE Social History Tobacco Use Types Packs/Day Years Used Date Smoking Tobacco: Never Assessed Sex and Gender Information Value Date Recorded Sex Assigned at Not on file Legal Sex Male 8:53 PM SPRING FORMER HAND Gender Identity Not on file Sexual Orientation Not on file documented as of this encounter Plan of Treatment Upcoming Encounters Date Type Department Care Team (Late st Contact Info) Description 06/26/2025 2:45 PM CDT Office Visit [facility] [address] [place] [address] [phone] Favio Polanco MD [address] [place] [address] [phone] documented as of this encounter Visit Diagnoses Not on filedocumented in this encounter Additional Health Concerns Infection Onset Date Last Indicated Resolved Time R/O COVID-19 05/15/2024 05/15/2024 05/15/2024 1:12 PM CDT documented as of this encounter Care Teams Heel Builder Machine Relationship Specialty Start Date End Date Sam Fay MD PCP - General Emergency Medicine 12/22/18 documented as of this encounter
--- OUTSIDE RECORDS SUMMARY | 2024-11-21 23:31 | XMS_ITS | Encounter Summary ---
Author Organization [facility] Address [address] [place] [address] Care Team Providers Care Electrical Installation Inspector Name Role Phone Sam Fay MD Primary Care Provider [phone] Encounter Details Date Type Department Care Team (Late st Contact Info) Description 01/15/1999 Outpatient Historical [facility] Primary Care - [address] [place] [address] Massimo Piña, DO NO ADDRESS ON FILE Social History Tobacco Use Types Packs/Day Years Used Date Smoking Tobacco: Never Assessed Sex and Gender Information Value Date Recorded Sex Assigned at Not on file Legal Sex Male 8:53 PM TAR POT MAN Gender Identity Not on file Sexual Orientation Not on file documented as of this encounter Plan of Treatment Upcoming Encounters Date Type Department Care Team (Late st Contact Info) Description 06/26/2025 2:45 PM CDT Office Visit [facility] [address] [place] [address] [phone] Favio Polanco MD [address] [place] [phone] documented as of this encounter Visit Diagnoses Not on filedocumented in this encounter Additional Health Concerns Infection Onset Date Last Indicated Resolved Time R/O COVID-19 05/15/2024 05/15/2024 05/15/2024 1:12 PM CDT documented as of this encounter Care Teams Electrical Installation Inspector Relationship Specialty Start Date End Date Sam Fay MD PCP - General Emergency Medicine 12/22/18 documented as of this encounter
--- OUTSIDE RECORDS SUMMARY | 2024-11-21 23:31 | XMS_ITS | Encounter Summary ---
Author Organization [facility] Address [address] [place] [address] Care Team Providers Care Business Solutions Director Name Role Phone Sam Fay MD Primary Care Provider [phone] Encounter Details Date Type Department Care Team (Late st Contact Info) Description 01/23/2000 Outpatient Historical [facility] Primary Care - [address] [place] [address] Massimo Piña, DO NO ADDRESS ON FILE Social History Tobacco Use Types Packs/Day Years Used Date Smoking Tobacco: Never Assessed Sex and Gender Information Value Date Recorded Sex Assigned at Not on file Legal Sex Male 8:53 PM CONFIGURATION MANAGEMENT ADMINISTRATOR Gender Identity Not on file Sexual Orientation Not on file documented as of this encounter Plan of Treatment Upcoming Encounters Date Type Department Care Team (Late st Contact Info) Description 06/26/2025 2:45 PM CDT Office Visit [facility] [address] [place] [address] [phone] Favio Polanco MD [address] [place] [address] [phone] documented as of this encounter Visit Diagnoses Not on filedocumented in this encounter Additional Health Concerns Infection Onset Date Last Indicated Resolved Time R/O COVID-19 05/15/2024 05/15/2024 05/15/2024 1:12 PM CDT documented as of this encounter Care Teams Business Solutions Director Relationship Specialty Start Date End Date Sam Fay MD PCP - General Emergency Medicine 12/22/18 documented as of this encounter
--- OUTSIDE RECORDS SUMMARY | 2024-11-21 23:31 | XMS_ITS | Encounter Summary ---
Author Organization [facility] Address 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 Gender Identity Not on file Sexual Orientation Not on file documented as of this encounter Plan of Treatment Upcoming Encounters Date Type Department Care Team (Late st Contact Info) Description 06/26/2025 2:45 PM CDT Office Visit [facility] [address] [place] [address] [phone] Favio Polanco MD [address] [place] [address] [phone] documented as of this encounter Visit Diagnoses Not on filedocumented in this encounter Additional Health Concerns Infection Onset Date Last Indicated Resolved Time R/O COVID-19 05/15/2024 05/15/2024 05/15/2024 1:12 PM CDT documented as of this encounter Care Teams Burn Crew Member Relationship Specialty Start Date End Date Sam Fay MD PCP - General Emergency Medicine 12/22/18 documented as of this encounter
--- OUTSIDE RECORDS SUMMARY | 2024-11-21 23:31 | XMS_ITS | Encounter Summary ---
Author Organization [facility] Address 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 Gender Identity Not on file Sexual Orientation Not on file documented as of this encounter Plan of Treatment Upcoming Encounters Date Type Department Care Team (Late st Contact Info) Description 06/26/2025 2:45 PM CDT Office Visit [facility] [address] [place] [address] [phone] Favio Polanco MD [address] [place] [phone] documented as of this encounter Visit Diagnoses Not on filedocumented in this encounter Additional Health Concerns Infection Onset Date Last Indicated Resolved Time R/O COVID-19 05/15/2024 05/15/2024 05/15/2024 1:12 PM CDT documented as of this encounter Care Teams Fermenter Helper Relationship Specialty Start Date End Date Sam Fay MD PCP - General Emergency Medicine 12/22/18 documented as of this encounter
--- OUTSIDE RECORDS SUMMARY | 2024-11-21 23:31 | XMS_ITS | Encounter Summary ---
Author Organization [facility] Address [address] [place] [address] Care Team Providers Care Hand Ii Tube Bender Name Role Phone Sam Fay MD Primary Care Provider [phone] Encounter Details Date Type Department Care Team (Late st Contact Info) Description 12/26/1999 Outpatient Historical [facility] Primary Care - [address] [place] [address] Massimo Piña, DO NO ADDRESS ON FILE Social History Tobacco Use Types Packs/Day Years Used Date Smoking Tobacco: Never Assessed Sex and Gender Information Value Date Recorded Sex Assigned at Not on file Legal Sex Male 8:53 PM DROP MAN Gender Identity Not on file Sexual Orientation Not on file documented as of this encounter Plan of Treatment Upcoming Encounters Date Type Department Care Team (Late st Contact Info) Description 06/26/2025 2:45 PM CDT Office Visit [facility] [address] [place] [address] [phone] Favio Polanco MD [address] [place] [address] [phone] documented as of this encounter Visit Diagnoses Not on filedocumented in this encounter Additional Health Concerns Infection Onset Date Last Indicated Resolved Time R/O COVID-19 05/15/2024 05/15/2024 05/15/2024 1:12 PM CDT documented as of this encounter Care Teams Hand Ii Tube Bender Relationship Specialty Start Date End Date Sam Fay MD PCP - General Emergency Medicine 12/22/18 documented as of this encounter
--- OUTSIDE RECORDS SUMMARY | 2024-11-21 23:31 | XMS_ITS | Encounter Summary ---
Author Organization [facility] Address [address] [place] [address] Care Team Providers Care Computer Clerk Name Role Phone Sam Fay MD Primary Care Provider [phone] Encounter Details Date Type Department Care Team (Late st Contact Info) Description 03/12/2000 Outpatient Historical [facility] Primary Care - [address] [place] [address] Massimo Piña, NO ADDRESS ON FILE Social History Tobacco Use Types Packs/Day Years Used Date Smoking Tobacco: Never Assessed Sex and Gender Information Value Date Recorded Sex Assigned at Not on file Legal Sex Male 8:53 PM RADIOLOGY RESIDENT Gender Identity Not on file Sexual Orientation Not on file documented as of this encounter Plan of Treatment Upcoming Encounters Date Type Department Care Team (Late st Contact Info) Description 06/26/2025 2:45 PM CDT Office Visit [facility] [address] [place] [address] [phone] Favio Polanco MD [address] [place] [phone] documented as of this encounter Visit Diagnoses Not on filedocumented in this encounter Additional Health Concerns Infection Onset Date Last Indicated Resolved Time R/O COVID-19 05/15/2024 05/15/2024 05/15/2024 1:12 PM CDT documented as of this encounter Care Teams Computer Clerk Relationship Specialty Start Date End Date Sam Fay MD PCP - General Emergency Medicine 12/22/18 documented as of this encounter
--- OUTSIDE RECORDS SUMMARY | 2024-11-21 23:31 | XMS_ITS | Encounter Summary ---
Author Organization [facility] Address 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 Gender Identity Not on file Sexual Orientation Not on file documented as of this encounter Plan of Treatment Upcoming Encounters Date Type Department Care Team (Late st Contact Info) Description 06/26/2025 2:45 PM CDT Office Visit [facility] [address] [place] [address] [phone] Favio Polanco MD [address] [place] [address] [phone] documented as of this encounter Visit Diagnoses Not on filedocumented in this encounter Additional Health Concerns Infection Onset Date Last Indicated Resolved Time R/O COVID-19 05/15/2024 05/15/2024 05/15/2024 1:12 PM CDT documented as of this encounter Care Teams Substation Operator Transforming Relationship Specialty Start Date End Date Sam Fay MD PCP - General Emergency Medicine 12/22/18 documented as of this encounter
--- OUTSIDE RECORDS SUMMARY | 2024-11-21 23:31 | XMS_ITS | Encounter Summary ---
Author Organization [facility] Address [address] [facility] [address] [place] [address] Phone Care Team Providers Care Lens Cutter Name Role Phone Sam Fay Primary Care Provider [phone] Encounter Details Date Type Department Care Team (Late st Contact Info) Description 02/25/2019 Orders Only [facility] [address] [place] [address] Amy Hatch GENERAL MAGISTRATE [address] [place] [address] [place] [address] Chronic kidney disease stage 3 (HCC) Social History Tobacco Use Types Packs/Day Years Used Date Smoking Tobacco: Former Cigarettes Q uit: 1970 Smokeless Tobacco: Never Alcohol Use Standard Drinks/Week Comments Never 0 (1 standard drink = 0.6 oz pur e alcohol) AUDIT-C Answer Date Recorded Frequency of Alcohol Consumption Never 06/09/2018 Average Number of Drinks Not on file 019 Frequency of Binge Drinking Not on file 05/2018 Sex and Gender Information Value Date Recorded Sex Assigned at Not on file Legal Sex Male 10:03 AM EST Gender Identity Not on file Sexual Orientation Not on file documented as of this encounter Plan of Treatment Not on file documented as of this encounter Procedures Procedure Name Priority Date/Time Associated Diagnosis Comments URINE ALBUMIN / CREATININE RATIO Routine 02/17/2019 1:30 PM FRYLINE ATTENDANT Chronic kidney disease stage 3 (HCC) CBC Routine 02/17/2019 1:30 PM FRYLINE ATTENDANT Chronic kidney disease stage 3 (HCC) PTH, INTACT Routine 02/17/2019 1:30 PM FRYLINE ATTENDANT Chronic kidney disease stage 3 (HCC) RENAL FUNCTION PANEL Routine 02/17/2019 1:30 PM FRYLINE ATTENDANT Chronic kidney disease stage 3 (HCC) documented in this encounter Results * (ABNORMAL) PTH, intact (02/17/2019 1:30 PM FRYLINE ATTENDANT) Parathyroid Hormone, Intact 141.0(A) 18.1 - 88.5 pg/mL PRINT/EXTERNA L (NON-INTERFAC ED LABS) Blood specimen (specimen) Venous blood / Unknown 02/17/2019 1:30 PM FRYLINE ATTENDANT Narrative PRINT/EXTERNAL (NON-INTERFACED LABS) - 02/21/2019 4:04 PM FRYLINE ATTENDANT head bellhop captain lab [facility] Amy Hatch GENERAL MAGISTRATE LAB BLOOD ORDERABLES Sujey l Result Performing Organization Address City/[facility]/ZIP Co de Phone Number PRINT/EXTERNAL (NON-INTERFACED LABS) * Urine albumin / creatinine ratio (02/17/2019 1:30 PM FRYLINE ATTENDANT) Pathologist [facility] Urine Microalbumin 26.3 mg/dL PRINT/EXTERNA L (NON-INTERFAC ED LABS) Creatinine, Urine 198.22 mg/dL AR INT/EXTERNA L (NON-INTERFAC ED LABS) Protein, Ur 27.1 PRINT/EX TERNA L (NON-INTERFAC ED LABS) Urine specimen (specimen) Urine specimen obtained by clean catch procedure / Unknown 02/17/2019 1:30 PM FRYLINE ATTENDANT Amy Hatch GENERAL MAGISTRATE LAB URINE ORDERABLES Sujey l Result PRINT/EXTERNAL (NON-INTERFACED LABS) * CBC (02/17/2019 1:30 PM FRYLINE ATTENDANT) Pathologist [facility] WBC 8.7 K/uL PRINT/EXTE RNAL (NON-INTERFACE D LABS) Red Blood Cell Count 4.57 PRINT/EXTERNAL (NON-INTERFACE D LABS) Hemoglobin 13.5 g/dL PRINT/EXT ERNAL (NON-INTERFACE D LABS) Hematocrit 40.9 % PRINT/EXT ERNAL (NON-INTERFACE D LABS) MCV 91.7 PRINT/EXTE RNAL (NON-INTERFACE D LABS) MCH 29.5 PRINT/EXTE RNAL (NON-INTERFACE D LABS) MCHC 32.2 PRINT/EXTE RNAL (NON-INTERFACE D LABS) RDW 13.9 PRINT/EXTE RNAL (NON-INTERFACE D LABS) Platelet Count 191 PRINT /EXTERNAL (NON-INTERFACE D LABS) MPV 10.7 PRINT/EXTE RNAL (NON-INTERFACE D LABS) Absolute Neutrophils 6.14 PRINT/EXTERNAL (NON-INTERFACE D LABS) Absolute Lymphocytes 1.77 PRINT/EXTERNAL (NON-INTERFACE D LABS) Absolute Monocytes 0.12 PRINT/EXTERNAL (NON-INTERFACE D LABS) Absolute Eosinophils 0.04 PRINT/EXTERNAL (NON-INTERFACE D LABS) Absolute Basophils 0.03 PRINT/EXTERNAL (NON-INTERFACE D LABS) Neutrophils 70.5 K/uL PRINT/EX TERNAL (NON-INTERFACE D LABS) Lymphocytes 20.3 PRINT/EX TERNAL (NON-INTERFACE D LABS) Monocytes 7.0 PRINT/EXTE RNAL (NON-INTERFACE D LABS) Eosinophils 1.4 PRINT/EX TERNAL (NON-INTERFACE D LABS) Basophils 0.5 PRINT/EXTE RNAL (NON-INTERFACE D LABS) Blood specimen (specimen) Venous blood / Unknown 02/17/2019 1:30 PM FRYLINE ATTENDANT us Amy Hatch GENERAL MAGISTRATE LAB BLOOD ORDERABLES Sujey veras Result PRINT/EXTERNAL (NON-INTERFACED LABS) * (ABNORMAL) Renal function panel (02/17/2019 1:30 PM FRYLINE ATTENDANT) Albumin 3.9 3.5 - 5.0 g/dL PRINT/EXTERNA L (NON-INTERFAC ED LABS) BUN 34(A) 4 - 21 mg/dL PRINT/EXTERNA L (NON-INTERFAC ED LABS) Calcium 9.7 8.7 - 10.7 mg/dL PRINT/EXTERNA L (NON-INTERFAC ED LABS) Chloride 103 99 - 108 PRINT/EXTE RNA L (NON-INTERFAC ED LABS) Bicarbonate (CO2) 26 22 - 30 mmol/L PRINT/EXTERNA L (NON-INTERFAC ED LABS) Creatinine 2.08(A) 0.60 - 1.30 mg/dL PRINT/EXTERNA L (NON-INTERFAC ED LABS) eGFR 38.0 mL/min/1.7 3m*2 PRINT/EXTERNA L (NON-INTERFAC ED LABS) eGFR Non- 31.0 mL/min/1.7 3m*2 PRINT/EXTERNA L (NON-INTERFAC ED LABS) Glucose 164 PRINT/EXTE RNA L (NON-INTERFAC ED LABS) Phosphorus, Serum 3.9 PRINT/EXTERNA L (NON-INTERFAC ED LABS) Potassium 4.8 3.4 - 5.5 PRINT/EXTE RNA L (NON-INTERFAC ED LABS) Sodium 139 137 - 147 PRINT/EXTE RNA L (NON-INTERFAC ED LABS) Blood specimen (specimen) Venous blood / Unknown 02/17/2019 1:30 PM FRYLINE ATTENDANT us Amy Hatch GENERAL MAGISTRATE LAB BLOOD ORDERABLES Sujey veras Result PRINT/EXTERNAL (NON-INTERFACED LABS) documented in this encounter Visit Diagnoses Diagnosis Chronic kidney disease stage 3 (HCC) documented in this encounter Care Teams Lens Cutter Relationship Specialty Start Date End Date aSm Fay PCP - General Internal Medicine 06/07/18 documented as of this encounter
--- OUTSIDE RECORDS SUMMARY | 2024-11-21 23:31 | XMS_ITS | Encounter Summary ---
Author Organization [facility] Address [address] [place] [address] Care Team Providers Care Cake Puller Name Role Phone Sam Fay MD Primary Care Provider [phone] Encounter Details Date Type Department Care Team (Late st Contact Info) Description 11/15/2024 External Device Data [facility] ABSTRACTION Provider, Abstract NO ADDRESS ON FILE Social History Tobacco Use Types Packs/Day Years Used Date Smoking Tobacco: Never Smokeless Tobacco: Never Alcohol Use Standard Drinks/Week Comments Not Currently 0 (1 standard drink = 0.6 oz pur e alcohol) Feeling Safe Answer Date Recorded Are you in a relationship wi th someone who hurts you emotionally and/or physically? No 09/05/2024 Food Insecurity Answer Date Recorded Patient needs follow up regardin 09/05/2024 Transportation Needs Answer Date Record ed Patient needs follow up regardin 09/05/2024 Utility Needs Answer Date Recorded Patient needs follow up regardin 09/05/2024 Sex and Gender Information Value Date Recorded Sex Assigned at Not on file Legal Sex Male 8:53 PM FINISHER HAND Gender Identity Not on file Sexual Orientation Not on file documented as of this encounter Plan of Treatment Upcoming Encounters Date Type Department Care Team (Late st Contact Info) Description 06/26/2025 2:45 PM CDT Office Visit [facility] [address] [place] [phone] Favio Polanco MD [address] [place] [phone] documented as of this encounter Visit Diagnoses Not on filedocumented in this encounter Care Teams Cake Puller Relationship Specialty Start Date End Date Sam Fay MD PCP - General Emergency Medicine 12/22/18 documented as of this encounter
--- OUTSIDE RECORDS SUMMARY | 2024-11-21 23:31 | XMS_ITS | Encounter Summary ---
Author Organization [facility] Address [address] [place] [address] Care Team Providers Care General Studies Program Chair Name Role Phone Sam Fay MD Primary Care Provider [phone] Encounter Details Date Type Department Care Team (Late st Contact Info) Description 12/07/2007 Outpatient Historical [facility] Massimo Frias, NO ADDRESS ON FILE Cough Social History Tobacco Use Types Packs/Day Years Used Date Smoking Tobacco: Never Assessed Sex and Gender Information Value Date Recorded Sex Assigned at Not on file Legal Sex Male 8:53 PM [employer] Gender Identity Not on file Sexual Orientation Not on file documented as of this encounter Plan of Treatment Upcoming Encounters Date Type Department Care Team (Late st Contact Info) Description 06/26/2025 2:45 PM CDT Office Visit [facility] [address] [place] [phone] Favio Polanco MD [address] [place] [phone] documented as of this encounter Procedures Procedure Name Priority Date/Time Associated Diagnosis Comments XR CHEST PA AND LATERAL 2 VW Routine 12/07/2007 10:52 AM CDT documented in this encounter Results * XR CHEST PA AND LATERAL (12/07/2007 10:52 AM CDT) Anatomical Region Laterality Modality Chest Other 12/07/2007 10:5 2 AM CDT Narrative 12/07/2007 11:42 AM CDT [address] [address] Admit Date: 12/07/2007 ESEQUIEL ARMENDARIZ Sex: M Admit Prov: MASSIMO FRIAS Date: 1940 Primary Care Prov: MASSIMO FRIAS CMRN: [id number] [facility] [address] [place] [address] IMAGING SERVICES Ordering Prov: N/A Accession Number: [id number] Interpretation CHEST 2 VIEWS, 12/07/2007 Clinical History: Cough and chest pain. PA and lateral views of the chest on 12/07/07 demonstrate the heart to be within normal limits in size. Pulmonary vasculature is not congested. Lungs are clear of acute processes. No effusions or pneumothoraces are evident. A calcified nodule is noted within the right lung base, suggesting old granulomatous disease. Impression: No acute disease. Old granulomatous disease. . Dictated by: ALINA ALONSO 12/07/2007 10:55 Electronically signed by: ALINA ALONSO12/07/2007 11:41 Transcribed: 12/07/2007 10:58 SMM Procedure Note Alina Alonso MD - 12/07/2007 [facility] [address] [facility] [place], [place] [address] Admit Date: 12/07/2007 ESEQUIEL ARMENDARIZ Sex: M Admit Prov: MASSIMO FRIAS Date: 1940 Primary Care Prov: MASSIMO FRIAS CMRN: [id number] [facility] [address] [place] [address] IMAGING SERVICES Ordering Prov: N/A Interpretation CHEST 2 VIEWS, 12/07/2007 Clinical History: Cough and chest pain. PA and lateral views of the chest on 12/07/07 demonstrate the heart noah within normal limits in size. Pulmonary vasculature is not congested.Lungs are clear of acute processes. No effusions or pneumothoraces areevident. A calcified nodule is noted within the right lung base, suggestingold granulomatous disease. Impression: No acute disease. Old granulomatous disease. . Dictated by: ALINA ALONSO 12/07/2007 10:55 Electronically signed by: ALINA ALONSO12/07/2007 11:41 Transcribed: 12/07/2007 10:58 SMM us Massimo Frias DO DIAGNOSTIC IMAGING ORDERABL ES Final Result documented in this encounter Visit Diagnoses Diagnosis Cough documented in this encounter Additional Health Concerns Infection Onset Date Last Indicated Resolved Time R/O COVID-19 05/15/2024 05/15/2024 05/15/2024 1:12 PM CDT documented as of this encounter Care Teams General Studies Program Chair Relationship Specialty Start Date End Date Sam Fay MD PCP - General Emergency Medicine 12/22/18 documented as of this encounter
--- OUTSIDE RECORDS SUMMARY | 2024-11-21 23:31 | XMS_ITS | Encounter Summary ---
Author Organization [facility] Address [address] [place] [address] Care Team Providers Care Lead Pharmacy Technician Name Role Phone Sam Fay MD Primary Care Provider [phone] Encounter Details Date Type Department Care Team (Late st Contact Info) Description 06/12/2001 Outpatient Historical [facility] Primary Care - [address] [place] [phone] Massimo Piña, DO NO ADDRESS ON FILE Social History Tobacco Use Types Packs/Day Years Used Date Smoking Tobacco: Never Assessed Sex and Gender Information Value Date Recorded Sex Assigned at Not on file Legal Sex Male 8:53 PM [employer] Gender Identity Not on file Sexual Orientation Not on file documented as of this encounter Plan of Treatment Upcoming Encounters Date Type Department Care Team (Late st Contact Info) Description 06/26/2025 2:45 PM CDT Office Visit [facility] [address] [place] [phone] Favio Polanco MD [address] [place] [phone] documented as of this encounter Visit Diagnoses Not on filedocumented in this encounter Additional Health Concerns Infection Onset Date Last Indicated Resolved Time R/O COVID-19 05/15/2024 05/15/2024 05/15/2024 1:12 PM CDT documented as of this encounter Care Teams Lead Pharmacy Technician Relationship Specialty Start Date End Date Sam Fay MD PCP - General Emergency Medicine 12/22/18 documented as of this encounter
--- OUTSIDE RECORDS SUMMARY | 2024-11-21 23:31 | XMS_ITS | Clinical Summary ---
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 Active SENNA (SENOKOT PO) Take 2 Tabs by mouth 2 times daily. Active glyBURIDE (DIABETA) 5 mg Oral tablet Take 5 mg by mouth daily with breakfast. Active MULTIVITAMINS (MULTIVITAMIN PO) Take 1 Tab by mouth daily. Active omeprazole (PriLOSEC) 20 mg Capsule, Delayed Release(E.C.) Take 20 mg by mouth. Active acetaminophen (TYLENOL) 500 mg tablet Take 500 mg by mouth every 6 hours as needed. 9 Active fluoride, sodium, (ETHEDENT) 1.1 % Cream by dental route. Active tamsulosin (FLOMAX) 0.4 mg capsule Take 0.4 mg by mouth. Active insulin aspart U-100 (NovoLOG) 100 unit/mL vial Inject by subcutaneous injection 3 times daily with meals. Active insulin glargine (LANTUS) 100 unit/mL vial Inject 25 Units by subcutaneous injection daily at bedtime. 9 Active finasteride (PROSCAR) 5 mg tablet Take 5 mg by mouth. Active polyethylene glycol 3350 (MIRALAX) 17 gram/dose Powder Take 17 Grams by mouth. Active atorvastatin (LIPITOR) 80 mg tablet Take 80 mg by mouth. 9 Active omega-3 acid ethyl esters (LOVAZA) 1 gram Capsule Take by mouth. 9 Active magnesium oxide (MAG-OX) 400 mg (241.3 mg magnesium) tablet 4 Active memantine (NAMENDA) 5 mg Tablet Take 5 mg by mouth. 5 Active potassium CHLORIDE (KLOR-CON M20) 20 mEq Extended Release tablet Take 20 mEq by mouth. 4 Active busPIRone (BUSPAR) 5 mg tablet Take 5 mg by mouth 3 times daily. Active Fiber-Lax 625 mg tablet 4 Active cholecalcifero l, vitamin D3, 1,000 unit 4 Active DULoxetine (CYMBALTA) 20 mg Capsule, Delayed Release(E.C.) Take 40 mg by mouth. 4 Active furosemide (LASIX) 20 mg tablet Take 1 Tablet (20 mg) by mouth 1 time daily as needed for Other (See Comment) (Weight gain more than 3 pounds in 24 hours or over 5 pounds in any period of time associated with shortness of breath, swelling in legs). 30 Tablet 2 09/12/2024 12:45 PM CDT 5 Active empagliflozin (Jardiance) 10 mg tablet Take 1 Tablet (10 mg) by mouth daily in the morning. 100 Tablet 3 5 Active metoprolol succinate (TOPROL XL) 25 mg Extended Release 24 hour tablet Take 0.5 Tablets (12.5 mg) by mouth daily. Skip dose if heart rate less than 60bpm 45 Tablet 3 5 Active metoprolol succinate (TOPROL XL) 25 mg Extended Release 24 hour tablet Take 0.5 Tablets (12.5 mg) by mouth daily. 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 03/05/2009 Dyslipidemia 03/05/2009 Elevated PSA 03/05/2009 Encounters Date Type Department Care Team Description 11/15/2024 External Device Data [facility] Provider, Abstract 11/15/2024 External Device Data [facility] Provider, Abstract 11/01/2024 Telephone [place] [address] [place] [phone] Favio Polanco MD refill 10/26/2024 External Device Data [facility] Provider, Abstract 10/11/2024 External Device Data [facility] Provider, Abstract 10/11/2024 External Device Data [facility] Provider, Abstract 09/19/2024 9:20 AM CDT Office Visit [facility] [address] [place] [phone] Elizabeth Garcia FNP CAD in [place] artery (Primary Dx); Congestive heart failure, unspecified HF chronicity, unspecified heart failure type (CMS/HCC); HTN (hypertension), benign; Dyslipidemia; Atrial fibrillation, unspecified type ([facility]); PINA (obstructive sleep apnea); H/O mitral valve repair 09/13/2024 External Device Data [facility] Provider, Abstract 09/13/2024 External Device Data [facility] Provider, Abstract 09/13/2024 External Device Data [facility] Provider, Abstract 09/12/2024 Telephone [place] [address] [place] [phone] Favio Polanco MD Follow Up 09/12/2024 Telephone [place] [address] [place] [phone] Favio Polanco MD Follow Up 09/08/2024 Telephone [place] [address] [place] [phone] Favio Polanco MD Follow Up 09/06/2024 2:50 PM CDT Anesthesia Event [facility] Endoscopy [address] [place] [phone] Mukul Plascencia DO 09/06/2024 12:20 PM CDT - 09/06/2024 12:40 PM CDT Surgery [facility] Endoscopy [address] [place] [phone] Dandre Willingham MD ESOPHAGOGASTRODUODENOSCOPY 09/06/2024 External Device Data [facility]STRA[facility] Provider, Abstract 09/06/2024 External Device Data [facility] Provider, Abstract 09/05/2024 1:59 PM CDT - 09/12/2024 12:55 PM CDT Hospital Encounter [facility] 4A Cardiac [address] [place] [phone] Nelson Matamoros MD [place], Colton Post MD Near syncope Discharge Disposition: Home or Self Care 09/05/2024 12:30 PM CDT Office Visit 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 Gender Identity Not on file Sexual Orientation Not on file Last Filed Vital Signs Vital Sign Reading Time Taken Comments Blood Pressure 110/42 09/19/2024 9:47 AM CDT Pulse 58 09/19/2024 9:47 AM CDT Temperature 36.2 C (97.2 F) 09/12/2024 7:59 AM CDT Respiratory Rate 18 09/12/2024 7:59 AM CDT Oxygen Saturation 97% 09/19/2024 9:47 AM CDT Inhaled Oxygen Concentration - - Weight 94.3 kg (208 lb) 09/19/2024 9:47 AM CDT Height 175.3 cm (5' 9 ) 09/19/2024 9:47 AM CDT Body Mass Index 30.72 09/19/2024 9:47 AM CDT Plan of Treatment Upcoming Encounters Date Type Department Care Team (Late st Contact Info) Description 06/26/2025 2:45 PM CDT Office Visit [facility] [address] [place] [phone] Favio Polanco MD [address] [place] [phone] Health Maintenance Due Date Last Done Comments DIABETES ANNUAL FOOT EXAM 1958 DIABETES MICROALBUMIN ANNUAL SCREEN 1958 ZOSTER VACCINE (2 of 3) 08/30/2008 07/05/2008 RSV VACCINE (60+ or ) (1 - 1-dose 75+ series) 09/27/2015 DIABETES ANNUAL RETINAL EXAM 08/11/2024 08/12/2023, 08/12/2023 INFLUENZA VACCINE (#1) 2024 , 12/15/2018, 11/30/2017, Additional history exists DIABETES HBA1C Q 6 MONTHS 11/15/20242024, 04/02/2023, 10/31/2022, Additional history exists LDL CHOLESTEROL ANNUAL 05/15/2025 05/15/2024, 2023 DTAP/TDAP/TD VACCINES (3 - T d or Tdap) 11/19/2033 11/20/2023, 11/02/2017, 12/27/2010, Additional history exists PNEUMOCOCCAL VACCINE 50+ YEARS Completed 07/19/2015 , 02/06/2014 Procedures Procedure Name Priority Date/Time Associated Diagnosis Comments TELEMETRY REPORT 09/13/2024 2:21 AM CDT POC GLUCOSE Routine 09/12/2024 11:26 AM CDT POC GLUCOSE Routine 09/12/2024 7:10 AM CDT COMPREHENSIVE METABOLIC PANEL Routine 4:13 AM CDT CBC WITH DIFFERENTIAL Routine 09/12/2024 4:13 AM CDT POC GLUCOSE Routine 09/11/2024 8:30 PM CDT POC GLUCOSE Routine 09/11/2024 5:00 PM CDT POC GLUCOSE Routine 09/11/2024 11:52 AM CDT POC GLUCOSE Routine 09/11/2024 8:07 AM CDT COMPREHENSIVE METABOLIC PANEL Routine 5:07 AM CDT CBC WITH DIFFERENTIAL Routine 09/11/2024 5:07 AM CDT POC GLUCOSE Routine 09/10/2024 8:20 PM CDT POC GLUCOSE Routine 09/10/2024 4:41 PM CDT POC GLUCOSE Routine 09/10/2024 11:49 AM CDT POC GLUCOSE Routine 09/10/2024 7:41 AM CDT COMPREHENSIVE METABOLIC PANEL Routine 5:42 AM CDT CBC WITH DIFFERENTIAL Routine 09/10/2024 5:42 AM CDT POC GLUCOSE Routine 09/09/2024 4:39 PM CDT POC GLUCOSE Routine 09/09/2024 11:17 AM CDT POC GLUCOSE Routine 09/09/2024 7:23 AM CDT COMPREHENSIVE METABOLIC PANEL Routine 12:42 AM CDT CBC WITH DIFFERENTIAL Routine 09/09/2024 12:42 AM CDT POC GLUCOSE Routine 09/08/2024 4:30 PM CDT POC GLUCOSE Routine 09/08/2024 11:38 AM CDT POC GLUCOSE Routine 09/08/2024 6:56 AM CDT COMPREHENSIVE METABOLIC PANEL Routine 4:26 AM CDT CBC WITH DIFFERENTIAL Routine 09/08/2024 4:26 AM CDT POC GLUCOSE Routine 09/07/2024 8:51 PM CDT POC GLUCOSE Routine 09/07/2024 5:14 PM CDT ECHO TRANSESOPHAGEAL W DOPPL ER AND COLOR FLOW Routine 09/07/2024 2:15 PM CDT POC GLUCOSE Routine 09/07/2024 11:44 AM CDT COMPREHENSIVE METABOLIC PANEL Routine 8:35 AM CDT CBC WITH DIFFERENTIAL Routine 09/07/2024 8:35 AM CDT POC GLUCOSE Routine 09/07/2024 7:12 AM CDT POC GLUCOSE Routine 09/06/2024 9:29 PM CDT POC GLUCOSE Routine 09/06/2024 3:30 PM CDT UPPER ENDOSCOPY REPORT 3:02 PM CDT ESOPHAGOGASTRODUODENOSCOPY 09/06 12:20 PM CDT POC GLUCOSE Routine 09/06/2024 11:18 AM CDT POC GLUCOSE Routine 09/06/2024 7:27 AM CDT BASIC METABOLIC PANEL Routine 09/06/2024 3:22 AM CDT CBC WITH DIFFERENTIAL Routine 09/06/2024 3:22 AM CDT TROPONIN 6 HR, 5TH GEN Timed Study 8:48 PM CDT POC GLUCOSE Routine 09/05/2024 8:13 PM CDT XR CHEST PA OR AP 1 VW Routine 2:41 PM CDT TROPONIN 2 HR, 5TH GEN Timed Study 5 2:21 PM CDT TROPONIN BASELINE, 5TH GEN Stat 09/05 2:21 PM CDT BRAIN NATRIURETIC PEPTIDE, B MORTGAGE BANKER OR PROBNP Routine 09/05/2024 2:21 PM CDT TSH Routine 09/05/2024 2:21 PM CDT MAGNESIUM LEVEL Routine 09/05/2024 2:21 PM CDT COMPREHENSIVE METABOLIC PANEL Routine 2:21 PM CDT CBC WITH DIFFERENTIAL Routine 09/05/2024 2:21 PM CDT IA ECG ROUTINE ECG W/LEAST 1 2 LDS W/I&R Routine 09/05/2024 12:54 PM CDT S/P CABG (coronary artery bypass graft) CAD in [place] LIPID RFLX Stat 05/15/2024 12:40 PM CDT HEMOGLOBIN A1C Stat 05/15/2024 12:40 PM CDT from Last 3 Months or Most Recently Relevant to Health Maintenance Results * TELEMETRY REPORT (09/13/2024 2:21 AM CDT) us Provider Scanning ECG ORDERABLES Final Result * (ABNORMAL) POC GLUCOSE (09/12/2024 11:26 AM CDT) Only the most recent of25 resultswithin the time period is included. GLUCOSE POC 195(H) 74 - 99 mg/dL 09/12/2024 11:26 AM CDT [facility] SPECIMEN SOURCE, GLUCOSE POC Capillary 09/12/2024 11:26 AM CDT [facility] Blood, whole 09/12/2024 11:2 6 AM CDT 09/12/2024 11:51 AM CDT Colton Anderson MD POINT OF CARE TESTING [place] al Result [facility] CLIA # [id number] [address] [place] [address] [place], [place] [id number] * (ABNORMAL) CBC WITH DIFFERENTIAL (09/12/2024 4:13 AM CDT) Only the most recent of8 resultswithin the time period is included. WBC 9.9 4.8 - 10.8 K/uL 09/12/2024 4:28 AM CDT [facility] [employer] [facility] RBC 4.18(L) 4.60 - 6.20 M/uL 09/12/2024 4:28 AM [facility] HEMOGLOBIN 12.6(L) 14.0 - 18.0 g/dL 09/12/2024 4:28 AM [facility] HEMATOCRIT 37.6(L) 41.0 - 53.0 % 09/12/2024 4:28 AM [facility] MCV 90.0 84.0 - 103.0 fL 09/12/2024 4:28 AM [facility] MCH 30.1 27.0 - 34.0 pg 09/12/2024 4:28 AM [facility] MCHC 33.5 30.0 - 35.0 g/dL 09/12/2024 4:28 AM [facility] PLATELETS 151 140 - 440 K/uL 09/12/2024 4:28 AM [facility] MPV 9.0 8.9 - 12.8 fL 09/12/2024 4:28 AM [facility] RDW 14.7(H) 11.0 - 14.5 % 09/12/2024 4:28 AM [facility] RDW-STDEV 47.4 37.0 - 54.0 fL 09/12/2024 4:28 AM [facility] NEUTROPHILS 70 42 - 75 % 09/12/2024 4:28 AM [facility] LYMPHOCYTES 17(L) 24 - 44 % 09/12/2024 4:28 AM [facility] MONOCYTES 8 2 - 10 % 09/12/2024 4:28 AM [facility] EOSINOPHILS 4 0 - 7 % 09/12/2024 4:28 AM [facility] BASOPHILS 1 0 - 1 % 09/12/2024 4:28 AM [facility] IMMATURE GRANULOCYTES 1 0 - 2 % 09/12/2024 4:28 AM [facility] NEUTROPHIL ABSOLUTE 6.87 2.00 - 8.00 K/uL 09/12/2024 4:28 AM CDT [facility] LYMPHOCYTE ABSOLUTE 1.70 1.20 - 4.00 K/uL 09/12/2024 4:28 AM CDT [facility] MONOCYTE ABSOLUTE 0.80(H) 0.10 - 0.60 K/uL 09/12/2024 4:28 AM CDT [facility] EOSINOPHIL ABSOLUTE 0.39 0.00 - 0.70 K/uL 09/12/2024 4:28 AM CDT [facility] BASOPHILS ABSOLUTE 0.05 0.00 - 0.20 K/uL 09/12/2024 4:28 AM CDT [facility] IMMATURE GRANULOCYTES ABSOLUTE 0.06 0.00 - 0.10 K/uL 09/12/2024 4:28 AM CDT [facility] SMEAR REVIEWED: NA - Not Applicable 09/12/2024 4:28 AM T [facility] Blood Venipuncture / Unknown 09/12/2024 4:13 AM CDT 09/12/2024 4:19 AM CDT us Colton Anderson MD HEMATOLOGY ORDERABLES Fin al Result [facility] CLIA # [id number] [address] [place] [id number] * (ABNORMAL) COMPREHENSIVE METABOLIC PANEL (09/12/2024 4:13 AM CDT) Only the most recent of7 resultswithin the time period is included. SODIUM 135(L) 136 - 145 mmol/L 09/12/2024 4:55 AM CDT [facility] POTASSIUM 4.5 3.5 - 5.1 mmol/L 09/12/2024 4:55 AM CDT [facility] CHLORIDE 102 98 - 107 mmol/L 09/12/2024 4:55 AM CDT [facility] CO2 24 22 - 29 mmol/L 09/12/2024 4:[facility] 9.0 8.8 - 10.2 mg/dL 09/12/2024 4:55 AM [facility] BUN 33(H) 8 - 23 mg/dL 09/12/2024 4:55 AM [facility] CREATININE 1.66(H) 0.67 - 1.17 mg/dL 09/12/2024 4:55 AM [facility] Comment:The GFR result is no t clinically significant on patients <18 or >70 years of age. GLUCOSE 162(H) 74 - 99 mg/dL 09/12/2024 4:55 AM [facility] TOTAL PROTEIN 6.1(L) 6.4 - 8.3 g/dL 09/12/2024 4:55 AM [facility] ALBUMIN 3.4(L) 3.5 - 5.2 g/dL 09/12/2024 4:55 AM [facility] BILIRUBIN TOTAL 0.7 0.0 - 1.0 mg/dL 09/12/2024 4:55 AM [facility] ALKALINE PHOSPHATASE 105 40 - 129 U/L 09/12/2024 4:55 AM [facility] AST 10 10 - 50 U/L 09/12/2024 4:55 AM [facility] ALT 13 <=50 U/L 09/12/2024 4:55 AM [facility] GFR 41 mL/min/1. 73 sq meter 09/12/2024 4:55 AM [facility] Comment:eGFR calculated with 2020 CKD-EPI equation. Vegetarian diet, extremely high or low muscle mass, and may affect results. Cystatin C with Glomerular Filtration Rate is a suitable alternative for these patients. ANION GAP 9 9 - 20 mmol/L 09/12/2024 4:55 AM [facility] Blood Venipuncture / Unknown 09/12/2024 4:13 AM CDT 09/12/2024 4:19 AM T Colton Anderson MD CHEMISTRY ORDERABLES Sujey l Result [facility] LABORATORY SERVICES [facility] CLIA # [id number] [address] [facility] [place] [id number] * ECHO TRANSESOPHAGEAL W DOPPLER AND COLOR FLOW (09/07/2024 2:15 PM CDT) EJECTION FRACTION 50 INTERFACE SYSTEM 09/07/2024 12:5 6 PM CDT Narrative INTERFACE SYSTEM - 09/07/2024 2:31 PM CDT [facility] Cardiovascular Services Echocardiography Laboratory [address] [place] [id number] Transesophageal Echocardiography (Report amended ) Patient: Jose Armendariz Study ID: HEIKE TURCIOSNARCISAChantale Weaver Gender: M : 1940 Age: 83 Room: Study 09/07/2024 Pt Inpatient Date: Status: Study 12:56:33 PM CSN #: [id number] Time: Ordering:Favio Polanco Middleware Administrator: April Torrez Indications and History: CHF. Summary and Conclusion: - Left ventricle: The cavity size is normal. Wall thickness is normal. Global systolic function is at the lower limits of normal. The estimated ejection fraction is 50-55%. For Epic reporting: the left ventricular ejection fraction is 50% by visual assessment. There appears to be severe hypokinesis of the basal inferior and basal inferolateral chaudhary. - Right ventricle: The cavity size is normal. Systolic function is normal. - Left atrium: There is no evidence of a thrombus in the atrial cavity. The left atrial appendage was not seen and was likely surgically ligated. - Right atrium: There is no evidence of a thrombus in the atrial cavity or appendage. - Atrial septum: Agitated saline contrast study shows no definite large nranr-mq-elfm shunt. Cannot entirely exclude passage of 1 or 2 bubbles to the left side. - Aortic valve: The valve is trileaflet. The leaflets are mildly thickened. There is mild regurgitation. - Mitral valve: Prior procedures include surgical repair and annular ring prosthesis. There is moderate regurgitation, directed eccentrically. Degree of MR was difficult to assess due to eccentric nature of the jet, appears moderate. Systolic blunting without systolic flow reversal noted in the visualized pulmonary veins. Of note, a small area of paravalvular mitral regurgitation also is noted, this appears to be mild. The effective regurgitant orifice is 0.29cm^2. The mean mitral valve gradient was 2 to 6 mmHg depending on R-R interval. Average heart rate 72 bpm. - Tricuspid valve: Poorly visualized. There is mild regurgitation. - Pulmonic valve: Poorly visualized. There is mild regurgitation. Recommendations: This procedure has been discussed with the referring physician. Procedure information: Comparison is made to the study of 07/08/2024. Study status: Routine. Consent: The risks, benefits, and alternatives to the procedure were explained to the patient and consent was obtained. Procedure: The patient arrived at the laboratory in the fasting state. Intravenous access was obtained. Surface ECG leads, automatic cuff blood pressure measurements, and pulse oximetric signals were monitored. Moderate sedation was administered by nursing staff. Transesophageal echocardiography was performed. Topical anesthesia was obtained using benzocaine spray and viscous lidocaine. An adult multiplane transesophageal probe was inserted by the attending rn documentation without difficulty. Image quality was adequate. Intravenous contrast (agitated saline) was administered. The transesophageal probe was removed. Study completion: The patient tolerated the procedure well. There were no complications. Administered medications: Midazolam, 3mg, IV. Fentanyl, 25mcg, IV. Sedation time began at 1321 and ended at 1408. Study components: 2D, 3D, complete spectral Doppler, color Doppler, and agitated saline. Height: 176.5cm. Height: 69.5in. Weight: 95.6kg. Weight: 210.8lb. BMI: 30.7kg/m^2. BSA: 2.19m^2. Blood pressure: 136/81 Study date: 09/07/2024. Study time: 12:56 PM. Location: Special procedures room. Cardiac Anatomy: LEFT VENTRICLE: The cavity size is normal. Wall thickness is normal. Global systolic function is at the lower limits of normal. The estimated ejection fraction is 50-55%. For Epic reporting: the left ventricular ejection fraction is 50% by visual assessment. The ratio of systolic to diastolic pulmonary vein flow is within the normal range (systolic predominant). RIGHT VENTRICLE: The cavity size is normal. Systolic function is normal. LEFT ATRIUM: There is no evidence of a thrombus in the atrial cavity. The left atrial appendage was not seen and was likely surgically ligated. RIGHT ATRIUM: Poorly visualized. There is no evidence of a thrombus in the atrial cavity or appendage. ATRIAL SEPTUM: Agitated saline contrast study shows no definite large tissj-pt-gtxe shunt. Cannot entirely exclude passage of 1 or 2 bubbles to the left side. AORTIC VALVE: The valve is trileaflet. The leaflets are mildly thickened. Cusp separation is normal. There is mild regurgitation. MITRAL VALVE: Prior procedures include surgical repair and annular ring prosthesis. There is moderate regurgitation, directed eccentrically. Degree of MR was difficult to assess due to eccentric nature of the jet, appears moderate. Systolic blunting without systolic flow reversal noted in the visualized pulmonary veins. Of note, a small area of paravalvular mitral regurgitation also is noted, this appears to be mild. TRICUSPID VALVE: Poorly visualized. Leaflet separation is normal. There is mild regurgitation. PULMONIC VALVE: Poorly visualized. The valve appears to be grossly normal. There is mild regurgitation. AORTA: Aorta: Scattered atheroma. Aortic root: The root is normal-sized. Ascending aorta: The proximal vessel is 37.0mm diameter. Measurements Mitral valve Value Mitral valve continued Value Mean v, D 81.6 cm/sec Max MR v 434 cm/sec VTI leaflet coapt 27.2 cm Peak LV-LA grad S 75 mm Hg Mean grad, D 3 mm Hg Regurg VTI 117.0 cm E-VTI 27.2 cm ERO, PISA 0.29 cm^2 A-VTI 20.7 cm MR vol, PISA 34 ml VTI E/A 1.3 Belkis VTI 27.2 cm Ascending aorta Value Peak LV-LA grad S 75 mm Hg AAo AP diam, S 3.7 cm MR alias velocity 30.8 cm/sec AAo AP diam/bsa, S 1.7 cm/m^2 MR PISA radius 0.8 cm Legend: (L) and (H) alejandra values outside specified reference range. [facility] are accredited with the [facility] Acc[facility] Commission - Echocardiography. Amended Edgar Abdi MD Confirmed 09/07/2024 14:57 Procedure Note Edgar Abdi MD - 09/07/2024 [facility] Cardiovascular Services Echocardiography Laboratory [address] [place] [id number] Transesophageal Echocardiography (Report amended ) Patient: Jose Armendariz Study ID: MCKENNA Weaver Gender: Greyson : 1940 Age: 83 Room: Study 09/07/2024 Pt Inpatient Date: Status: Study 12:56:33 PM CSN #: [id number] Time: Ordering:Favio Polanco Middleware Administrator: April Torrez Indications and History: CHF. Summary and Conclusion: - Left ventricle: The cavity size is normal. Wall thickness is normal.Global systolic function is at the lower limits of normal. The estimatedejection fraction is 50-55%. For Epic reporting: the left ventricular ejection fraction is 50% by visual assessment. There appears to be severehypokinesis of the basal inferior and basal inferolateral chaudhary. - Right ventricle: The cavity size is normal. Systolic function isnormal. - Left atrium: There is no evidence of a thrombus in the atrial cavity.The left atrial appendage was not seen and was likely surgically ligated. - Right atrium: There is no evidence of a thrombus in the atrial cavityor appendage. - Atrial septum: Agitated saline contrast study shows no definite large jiyaq-pu-xmji shunt. Cannot entirely exclude passage of 1 or 2 bubblesto the left side. - Aortic valve: The valve is trileaflet. The leaflets are mildlythickened. There is mild regurgitation. - Mitral valve: Prior procedures include surgical repair and annularring prosthesis. There is moderate regurgitation, directed eccentrically.Degree of MR was difficult to assess due to eccentric nature of the jet,appears moderate. Systolic blunting without systolic flow reversal noted inthe visualized pulmonary veins. Of note, a small area of paravalvularmitral regurgitation also is noted, this appears to be mild. The effective regurgitant orifice is 0.29cm^2. The mean mitral valve gradient was 2 to6 mmHg depending on R-R interval. Average heart rate 72 bpm. - Tricuspid valve: Poorly visualized. There is mild regurgitation. - Pulmonic valve: Poorly visualized. There is mild regurgitation. Recommendations: This procedure has been discussed with the referring physician. Procedure information: Comparison is made to the study of 07/08/2024.Study status: Routine. Consent: The risks, benefits, and alternatives tothe procedure were explained to the patient and consent was obtained.Procedure: The patient arrived at the laboratory in the fasting state. Intravenousaccess was obtained. Surface ECG leads, automatic cuff blood pressuremeasurements, and pulse oximetric signals were monitored. Moderate sedation was administered by nursing staff. Transesophageal echocardiography wasperformed. Topical anesthesia was obtained using benzocaine spray and viscouslidocaine. An adult multiplane transesophageal probe was inserted by the attending rn documentation without difficulty. Image quality was adequate. Intravenous contrast (agitated saline) was administered. The transesophageal probewas removed. Study completion: The patient tolerated the procedure well.There were no complications. Administered medications: Midazolam, 3mg, IV. Fentanyl, 25mcg, IV. Sedation time began at 1321 and ended at 1408. Study components: 2D, 3D, complete spectral Doppler, color Doppler, and agitated saline. Height: 176.5cm. Height: 69.5in. Weight: 95.6kg. Weight: 210.8lb. BMI: 30.7kg/m^2. BSA: 2.19m^2. Blood pressure: 136/81 Study date: 09/07/2024. Study time: 12:56 PM. Location:Special procedures room. Cardiac Anatomy: LEFT VENTRICLE: The cavity size is normal. Wall thickness is normal.Global systolic function is at the lower limits of normal. The estimatedejection fraction is 50-55%. For Epic reporting: the left ventricular ejectionfraction is 50% by visual assessment. The ratio of systolic to diastolic pulmonaryvein flow is within the normal range (systolic predominant). RIGHT VENTRICLE: The cavity size is normal. Systolic function isnormal. LEFT ATRIUM: There is no evidence of a thrombus in the atrial cavity.The left atrial appendage was not seen and was likely surgically ligated. RIGHT ATRIUM: Poorly visualized. There is no evidence of a thrombus inthe atrial cavity or appendage. ATRIAL SEPTUM: Agitated saline contrast study shows no definite large [id number] shunt. Cannot entirely exclude passage of 1 or 2 bubbles tothe left side. AORTIC VALVE: The valve is trileaflet. The leaflets are mildlythickened. Cusp separation is normal. There is mild regurgitation. MITRAL VALVE: Prior procedures include surgical repair and annular ring prosthesis. There is moderate regurgitation, directed eccentrically.Degree of MR was difficult to assess due to eccentric nature of the jet, appears moderate. Systolic blunting without systolic flow reversal noted in the visualized pulmonary veins. Of note, a small area of paravalvular mitral regurgitation also is noted, this appears to be mild. TRICUSPID VALVE: Poorly visualized. Leaflet separation is normal. Thereis mild regurgitation. PULMONIC VALVE: Poorly visualized. The valve appears to be grosslynormal. There is mild regurgitation. AORTA: Aorta: Scattered atheroma. Aortic root: The root is normal-sized. Ascending aorta: The proximal vessel is 37.0mm diameter. Measurements Mitral valve Value Mitral valve continued Value Mean v, D 81.6 cm/sec Max MR v 434 cm/sec VTI leaflet coapt 27.2 cm Peak LV-LA grad S 75 mm Hg Mean grad, D 3 mm Hg Regurg VTI 117.0 cm E-VTI 27.2 cm ERO, PISA 0.29 cm^2 A-VTI 20.7 cm MR vol, PISA 34 ml VTI E/A 1.3 Belkis VTI 27.2 cm Ascending aorta Value Peak LV-LA grad S 75 mm Hg AAo AP diam, S 3.7 cm MR alias velocity 30.8 cm/sec AAo AP diam/bsa, S 1.7 cm/m^2 MR PISA radius 0.8 cm Legend: (L) and (H) alejandra values outside specified reference range. [facility] are accredited with the[facility] - Echocardiography. Amended Edgar Abdi MD Confirmed 09/07/2024 14:57 us Favio Polanco MD ORDERABLES Edited Result - Final INTERFACE SYSTEM Refer to clinic/hospital department * UPPER ENDOSCOPY REPORT (09/06/2024 3:02 PM CDT) Narrative Procedure Note Dandre Willingham MD - 09/06/2024 3:02 PM CDT [facility] GI Patient Name: Jose Armendariz Procedure Date: 09/06/2024 Date of : 1940 Admit Type: Outpatient Age: 83 Attending MD: Dandre Willingham , , Procedure: Upper GI endoscopy Indications: Dysphagia, , Suspected esophageal reflux/Difficulty in advancing transesophageal echo endoscopy Providers: Dandre Willingham Referring MD: Medicines: Monitored Anesthesia Care Complications: No immediate complications. Procedure: Pre-Anesthesia Assessment: - [place] Protocol: - Pre-procedure Verification: Prior to the procedure, the patient's identity was verified by full name and date of . The patient's identity was verified on all pertinent medical records, including History and Physical and pre-anesthesia assessment. Also prior to the procedure, a History and Physical was performed, and patient medications, allergies and sensitivities were reviewed. The patient's tolerance of previous anesthesia was reviewed. The patient is competent. The risks and benefits of the procedure and the sedation options and risks were discussed with the patient. All questions were answered and informed consent was obtained. - Marking: The endoscopic procedure was visually marked on a patient wrist band delineating the patient name, proposed procedure and endoscopist's initials. - Time-Out: Prior to the start of the procedure, the patient's identification, proposed procedure, accurate signed consent, correctly labeled images and records, and need for prophylactic antibiotics were verified by the physician and the nurse in the endoscopy suite. - Prior to the procedure, a History and Physical was performed, and patient medications and allergies were reviewed. The patient's tolerance of previous anesthesia was also reviewed. The risks and benefits of the procedure and the sedation options and risks were discussed with the patient. All questions were answered, and informed consent was obtained. Prior Anticoagulants: The patient has taken no anticoagulant or antiplatelet agents. ASA Grade Assessment: II - A patient with mild systemic disease. After reviewing the risks and benefits, the patient was deemed in satisfactory condition to undergo the procedure. After obtaining informed consent, the endoscope was passed under direct vision. Throughout the procedure, the patient's blood pressure, pulse, and oxygen saturations were monitored continuously. The Endoscope was introduced through the mouth, and advanced to the second part of duodenum. The upper GI endoscopy was accomplished without difficulty. The patient tolerated the procedure well. Estimated Blood Loss: Estimated blood loss was minimal. Findings: A small hiatal hernia was present. Esophagogastric landmarks were identified: the Z-line was found at 40 cm from the incisors. The upper third of the esophagus was mildly tortuous. A guidewire was placed and the scope was withdrawn. Dilation was performed with a Savary dilator with no resistance at 48 Fr. The entire examined stomach was normal. The examined duodenum was normal. Impression: - Small hiatal hernia. - Esophagogastric landmarks identified. - Tortuous esophagus. Dilated. - Normal stomach. - Normal examined duodenum. - No specimens collected. Recommendation: - Follow an antireflux regimen indefinitely. - Continue present medications. - Resume previous diet. - Okay to discharge the patient from GI point of view Dandre Willingham, 09/06/2024 3:02:19 PM Number of Addenda: 0 Note Initiated On: 09/06/2024 2:49 PM Scope Withdrawal Time Scope In: Scope Out: [address] [place], [place] us Dandre Willingham MD GI PROCEDURE ORDERABL ES Final Result * (ABNORMAL) BASIC METABOLIC PANEL (09/06/2024 3:22 AM CDT) SODIUM 138 136 - 145 mmol/L 09/06/2024 4:27 AM T [facility] POTASSIUM 4.4 3.5 - 5.1 mmol/L 09/06/2024 4:27 AM T [facility] CHLORIDE 106 98 - 107 mmol/L 09/06/2024 4:27 AM T [facility] CO2 24 22 - 29 mmol/L 09/06/2024 4:27 AM T [facility] CALCIUM 9.1 8.8 - 10.2 mg/dL 09/06/2024 4:27 AM T [facility] BUN 35(H) 8 - 23 mg/dL 09/06/2024 4:27 AM [facility] CREATININE 1.72(H) 0.67 - 1.17 mg/dL 09/06/2024 4:27 AM T [facility] Comment:The GFR result is no t clinically significant on patients <18 or >70 years of age. GLUCOSE 146(H) 74 - 99 mg/dL 09/06/2024 4:27 AM T [facility] GFR 39 mL/min/1. 73 sq meter 09/06/2024 4:27 AM [facility] Comment:eGFR calculated with 2020 CKD-EPI equation. Vegetarian diet, extremely high or low muscle mass, and may affect results. Cystatin C with Glomerular Filtration Rate is a suitable alternative for these patients. ANION GAP 8(L) 9 - 20 mmol/L 09/06/2024 4:27 AM [facility] Blood Venipuncture / Unknown 09/06/2024 3:22 AM CDT 09/06/2024 3:52 AM CDT us Nelson Matamoros MD CHEMISTRY ORDERABLES Final Resul t [facility] CLIA # [id number] [address] [place] [address] * (ABNORMAL) TROPONIN 6 HR, 5TH GEN (09/05/2024 8:48 PM CDT) TROPONIN T, 6 HR 5TH GEN 29(H) <=15 ng/L 09/05/2024 9:50 PM CDT [facility] [employer] [facility] DELTA 6HR TROPONIN T -3 See Interp. 09/05/2024 9:50 PM CDT [facility] Blood Venipuncture / Unknown 09/05/2024 8:48 PM CDT 09/05/2024 9:17 PM CDT Narrative [facility] [employer] [facility] - 09/05/2024 9:50 PM CDT Troponin elevated. Delta indeterminate. Delay in collection of timed specimen beyond recommended collection interval. Results must be interpreted in clinical context. us Nelson Matamoros MD CHEMISTRY ORDERABLES Final Resul t [facility] CLIA # [id number] [facility] [address] * XR CHEST PA OR AP 1 VW (09/05/2024 2:41 PM CDT) Anatomical Region Laterality Modality Chest Computed Radiogr aphy 09/05/2024 2:41 PM CDT Impressions 09/05/2024 3:06 PM CDT IMPRESSION: Please see below. Exam: XR CHEST PA OR AP 1 VW Date/Time of Exam: 09/05/2024 2:41 PM Reason For Exam: Syncope. Diagnosis: See Reason for Exam. Findings: The AP semierect study is compared to the exam of 05/15/2024. Postsurgical changes of sternotomy are again noted. Lung volumes are somewhat low. There is no pneumothorax. The lungs are clear. The cardiac silhouette is generous in size. There is a loop recorder over the lateral left mid chest. The pulmonary vessels are unremarkable. The bony thorax is grossly intact. IMPRESSION: No acute radiographic abnormality or significant interval change. Narrative Procedure Note Janel Mckeon MD - 09/05/2024 IMPRESSION: Please see below. Exam: XR CHEST PA OR AP 1 VW Date/Time of Exam: 09/05/2024 2:41 PM Reason For Exam: Syncope. Diagnosis: See Reason for Exam. Findings: The AP semierect study is compared to the exam of 05/15/2024. Postsurgical changes of sternotomy are again noted. Lung volumes are somewhat low. There is no pneumothorax. The lungs are clear. The cardiac silhouette is generous in size. There is a loop recorder over the lateral left mid chest. The pulmonary vessels are unremarkable. The bony thorax is grossly intact. IMPRESSION: No acute radiographic abnormality or significant interval change. us Nelson Matamoros MD DIAGNOSTIC IMAGING ORDERABLES Fi nal Result * (ABNORMAL) TROPONIN 2 HR, 5TH GEN (09/05/2024 2:21 PM CDT) TROPONIN T, 2 HR 5TH GEN 30(H) <=15 ng/L 09/05/2024 2:58 PM CDT [facility] [employer] [facility] Comment:Hemolysis can falsel y decrease Troponin quantitation. Blood Venipuncture / Unknown 09/05/2024 2:21 PM CDT 09/05/2024 2:25 PM CDT Narrative [facility] [employer] [facility] - 09/05/2024 2:58 PM CDT Troponin elevated. Delay in collection of timed specimen beyond recommended collection interval. Results must be interpreted in clinical context. Unable to calculate delta. us Nelson Matamoros MD CHEMISTRY ORDERABLES Final Resul t [facility] [employer] [facility] CLIA # [id number] [address] [address] [place] [address] * (ABNORMAL) TROPONIN BASELINE, 5TH GEN (09/05/2024 2:21 PM CDT) Pathologist [facility] TROPONIN T, BASELINE 5TH GEN 32(H) <=15 ng/L 09/05/2024 2:59 PM CDT [facility] Blood Venipuncture / Unknown 09/05/2024 2:21 PM CDT 09/05/2024 2:25 PM CDT Narrative [facility] - 09/05/2024 2:59 PM CDT Troponin elevated. Nelson Matamoros MD CHEMISTRY ORDERABLES Final Resul t Performing Organization Address [facility] Co de Phone Number [facility] CLIA # [id number] [address] [place] [address] * TSH (09/05/2024 2:21 PM CDT) [facility] TSH 2.90 0.27 - 4.20 uIU/mL 09/05/2024 3:09 PM CDT [facility] Blood Venipuncture / Unknown 09/05/2024 2:21 PM CDT 09/05/2024 2:25 PM CDT Nelson Matamoros MD CHEMISTRY ORDERABLES Final Resul t Performing Organization Address [facility] de Phone Number [facility] CLIA # [id number] [address] [place] [address] * (ABNORMAL) BRAIN NATRIURETIC PEPTIDE, BNP OR PROBNP (09/05/2024 2:21 PM CDT) [facility] PROBNP, N TERMINAL 540(H) 0 - 450 pg/mL 09/05/2024 3:09 PM CDT [facility] Comment: INTERPRETIVE COMMENT based on diagnosis: Diagnostic NT pro-BNP cutoffs for Heart Failure in the absence of renal failure is suggested for the following ranges <75 years: <125 pg/mL >=75 years: <450 pg/mL Exclusionary rule out cut-point for Acute Decompensated Heart Failure(ADHF) All ages: <300 pg/mL Diagnostic NT pro-BNP cutoffs for Acute Decompensated Heart Failure(ADHF) in the absence of renal failure is suggested for the following ages <50 years: > 450 pg/mL 50-75 years: > 900 pg/mL >75 years: >1800 pg/mL Blood Venipuncture / Unknown 09/05/2024 2:21 PM CDT 09/05/2024 2:25 PM CDT Nelson Matamoros MD CHEMISTRY ORDERABLES Final Resul t Performing Organization Address [facility] Co de Phone Number [facility] [employer] [facility] CLIA # [id number] [address] [place], [place] [address] * MAGNESIUM LEVEL (09/05/2024 2:21 PM CDT) Pathologist [facility] MAGNESIUM 2.0 1.6 - 2.4 mg/dL 09/05/2024 3:11 PM CDT [facility] [employer] [facility] Blood Venipuncture / Unknown 09/05/2024 2:21 PM CDT 09/05/2024 2:25 PM CDT Nelson Matamoros MD CHEMISTRY ORDERABLES Final Resul t Performing Organization Address [facility] Co de Phone Number [facility] CLIA # [id number] [address] [facility] [place], [place] [address] * IA ECG ROUTINE ECG W/LEAST 12 LDS W/I&R (09/05/2024 12:54 PM CDT) Narrative [facility] - 09/05/2024 12:54 PM CDT Favio Polanco MD 09/05/2024 5:21 PM Probable sinus rhythm. Right bundle branch block. Old inferior infarct. Nonspecific ST-T abnormalities. Abnormal EKG. Procedure Note Favio Polanco MD - 09/05/2024 12:54 PM CDT Probable sinus rhythm. Right bundle branch block. Old inferior infarct.Nonspecific ST-T abnormalities. Abnormal EKG. Favio Polanco MD ECG ORDERABLES Final Result [facility] [id number] [address] [facility] [address] [place] [address], * (ABNORMAL) LIPID RFLX (05/15/2024 12:40 PM CDT) [facility] CHOLESTEROL 99 <200 mg/dL 05/15/2024 6:06 PM CDT [facility] TRIGLYCERIDE 92 <150 mg/dL 05/15/2024 6:06 PM CDT [facility] HDL 31(L) 40 - 59 mg/dL 05/15/2024 6:06 PM CDT [facility] LDL CALCULATED 50 <100 mg/dL 05/15/2024 6:06 PM CDT [facility] NON-HDL CHOLESTEROL 68 <130 mg/dL 05/15/2024 6:06 PM T [facility] Blood Venipuncture / Unknown 05/15/2024 12:40 PM CDT 05/15/2024 1:31 PM CDT Narrative [facility] - 05/15/2024 6:06 PM CDT TOTAL CHOLESTEROL mg/dL Desirable <200 Borderline high 200-239 High >=240 TRIGLYCERIDES mg/dL Normal <150 Borderline high 150-199 High 200-499 Very high >=500 HDL CHOLESTEROL mg/dL Low <40 Normal 40-59 Desirable >=60 NON HDL CHOLESTEROL mg/dL Optimal <130 Near Optimal 130-159 Borderline High 160-189 Very High >=190 CALCULATED LDL mg/dL LDL <70, OPTIMAL if have Atherosclerotic cardiovascular disease (ASCVD) or intermediate or higher (>7.5%) 10 year risk of ASCVD including most adults with diabetes. LDL <100, Optimal in adult patients with low (<7.5%) 10 year ASCVD risk LDL 100-160, Suboptimal LDL >160, High LDL >190, Very high LDL calculated using the Friedewald equation. ATPIII Guidelines Reference Ranges for Lipid Panels (NCEP/AMA) . Jannet Mckoy MD CHEMISTRY ORDERABLES Final Re sult Performing Organization Address City/[facility]/ZIP Co de Phone Number [facility] CLIA # [id number] [address] [address] * (ABNORMAL) HEMOGLOBIN A1C (05/15/2024 12:40 PM CDT) HEMOGLOBIN A1C 7.6(H) <=5.6 % 05/15/2024 1:43 PM CDT [facility] EST. AVG GLUCOSE, A1C 171 mg/dL 05/15/2024 1:43 PM CDT [facility] Blood Venipuncture / Unknown 05/15/2024 12:40 PM CDT 05/15/2024 12:49 PM CDT Narrative [facility] - 05/15/2024 1:43 PM CDT HGB A1C INTERPRETATION NORMAL: <5.7% PRE-DIABETES: 5.7 - 6.4% DIABETES: 6.5% OR GREATER Jannet Mckoy MD CHEMISTRY ORDERABLES Final Re sult Performing Organization Address [facility] Co de Phone Number [facility] CLIA # [id number] [address] [place] [address] [id number] from Last 3 Months or Most Recently Relevant to Health Maintenance Insurance [place] [id number] [employer] OPEN ACCESS MEDICARE PART A AND B [facility] [address] [place] [id number] RX [id number] Medicare Part D [facility] OPTUM [facility] OPTUM * Guarantor: FRANCIS ALCALA D (C) Account Type Relation to Patient Date of Phone Billing Address Corporate Other DEFAULT ADDRESS [place] [id number] [place] [employer] [employer] Advance Directives For more information, please contact: [phone] * Full Code (Latest Code Status on File) Date Activated Date Inactivated Comments 09/05/2024 2:40 PM 09/12/2024 3:00 PM Care Teams Churn Drill Operator Relationship Specialty Start Date End Date Sam Fay MD PCP - General Emergency Medicine 12/22/18
--- OUTSIDE RECORDS SUMMARY | 2024-11-21 23:31 | XMS_ITS | Encounter Summary ---
Author Organization [facility] Address 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 Gender Identity Not on file Sexual Orientation Not on file documented as of this encounter Plan of Treatment Upcoming Encounters Date Type Department Care Team (Late st Contact Info) Description 06/26/2025 2:45 PM CDT Office Visit [facility] [address] [place] [phone] Favio Polanco MD [address] [place] [address] [phone] documented as of this encounter Visit Diagnoses Not on filedocumented in this encounter Additional Health Concerns Infection Onset Date Last Indicated Resolved Time R/O COVID-19 05/15/2024 05/15/2024 05/15/2024 1:12 PM CDT documented as of this encounter Care Teams Pie Filler Relationship Specialty Start Date End Date Sam Fay MD PCP - General Emergency Medicine 12/22/18 documented as of this encounter
--- OUTSIDE RECORDS SUMMARY | 2024-11-21 23:31 | XMS_ITS | Encounter Summary ---
Author Organization [facility] Address 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 Gender Identity Not on file Sexual Orientation Not on file documented as of this encounter Plan of Treatment Upcoming Encounters Date Type Department Care Team (Late st Contact Info) Description 06/26/2025 2:45 PM CDT Office Visit [facility] [address] [place] [phone] Favio Polanco MD [address] [place] [phone] documented as of this encounter Visit Diagnoses Not on filedocumented in this encounter Care Teams Tank Truck Milk Receiver Relationship Specialty Start Date End Date Sam Fay MD PCP - General Emergency Medicine 12/22/18 documented as of this encounter
--- OUTSIDE RECORDS SUMMARY | 2024-11-21 23:31 | XMS_ITS | Encounter Summary ---
Author Organization [facility] Address 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 Gender Identity Not on file Sexual Orientation Not on file documented as of this encounter Plan of Treatment Upcoming Encounters Date Type Department Care Team (Late st Contact Info) Description 06/26/2025 2:45 PM CDT Office Visit [facility] [address] [place] [phone] Favio Polanco MD [address] [place] [phone] documented as of this encounter Visit Diagnoses Not on filedocumented in this encounter Additional Health Concerns Infection Onset Date Last Indicated Resolved Time R/O COVID-19 05/15/2024 05/15/2024 05/15/2024 1:12 PM CDT documented as of this encounter Care Teams Hardboard Press Operator Relationship Specialty Start Date End Date Sam Fay MD PCP - General Emergency Medicine 12/22/18 documented as of this encounter
--- OUTSIDE RECORDS SUMMARY | 2024-11-21 23:31 | XMS_ITS | Encounter Summary ---
Author Organization [facility] Address [address] [place] [address] Care Team Providers Care Vice President Consulting Services Name Role Phone Sam Fay MD Primary Care Provider [phone] Encounter Details Date Type Department Care Team (Late st Contact Info) Description 05/03/2007 Outpatient Historical 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 [address] [place] [phone] Favio Polanco MD [address] [place] [address] [phone] documented as of this encounter Visit Diagnoses Not on filedocumented in this encounter Additional Health Concerns Infection Onset Date Last Indicated Resolved Time R/O COVID-19 05/15/2024 05/15/2024 05/15/2024 1:12 PM CDT documented as of this encounter Care Teams Vice President Consulting Services Relationship Specialty Start Date End Date Sam Fay MD PCP - General Emergency Medicine 12/22/18 documented as of this encounter
--- OUTSIDE RECORDS SUMMARY | 2024-11-21 23:32 | XMS_ITS | Encounter Summary ---
Author Organization [facility] Address [address] [facility] [address] [place] [address] Phone Care Team Providers Care Photographic Equipment Mechanic Name Role Phone Sam Fay Primary Care Provider [phone] Encounter Details Date Type Department Care Team (Late st Contact Info) Description 06/23/2018 Orders Only [facility] [address] [place], [place] [id number] Lavon Bazzi MD [address] [place] [address] Chronic kidney disease stage 3; Nonspecific abnormal results of function study of kidney Social History Tobacco Use Types Packs/Day Years [...] Procedure Name Priority Date/Time Associated Diagnosis Comments PROTEIN ELECTROPHORESIS, SERUM Routine 02/28/2019 9:00 AM DIANETIC COUNSELOR Nonspecific abnormal results of function study of kidney Chronic kidney disease stage 3 (HCC) PROTEIN / CREATININE RATIO, URINE Routine 06/15/2018 Chronic kidney disease stage 3 URINALYSIS WITH MICROSCOPIC Routine 06/15/2018 Chronic kidney disease stage 3 CBC AND DIFFERENTIAL Routine 06/15/2018 Chronic kidney disease stage 3 documented in this encounter Results * Protein electrophoresis, serum (02/28/2019 9:00 AM DIANETIC COUNSELOR) Total Protein, Serum 6.4 g/dL Albumin SPE 3.8 g/dL Globulin, Total 0.3 g/dL Comment 0.7 g/dL Comment:recorded as 2 Glob Beta Globulin 0.4 g/dL Gamma Globulin in Serum 0.9 g/dL Beta 2 Globulin 0.3 g/dL Interpretation: Comment:No M Alban detected. Blood specimen (specimen) Venous blood / Unknown 02/28/2019 9:00 AM DIANETIC COUNSELOR Narrative Chasidy Zelaya MA - 03/16/2019 10:57 AM DIANETIC COUNSELOR As ordered [facility] CLIA#[id number] [address] [place] [address] Lavon Bazzi MD LAB BLOOD ORDERABLES Final Result * Urinalysis with microscopic exam OUTSIDE OFFICE (06/15/2018) Color, Urine Yellow Light Yellow, Yellow Clarity, Urine Clear Clear pH Urine 6.0 Protein, Urine negative Glucose, Urine negative Ketones, Urine negative Bilirubin, Urine negative Blood, Urine negative Nitrite, Urine negative Urobilinogen, Urine normal Urine specimen (specimen) Urine specimen obtained by clean catch procedure / Unknown 06/15/2018 Narrative Nancy Armendariz MA - 06/17/2018 7:24 AM T SC Lavon Bazzi MD LAB URINE ORDERABLES Final Result * (ABNORMAL) CBC and differential (06/15/2018) WBC 9.7 3.3 - 10.0 10*3/ML RBC 4.16(A) 4.50 - 5.90 10*6/ L Hemoglobin 12.2 Hematocrit 38.5 % MCV 92.5 MCH 29.3 MCHC 31.7 RDW 13.8 Platelet Count 184 MPV 10.2 Neutrophils % Auto 73.0 Lymphocytes 14 Monocytes 10 3 - 10 % Eosinophil % 1.7 % Basophil % 0.5 % Absolute Neutrophils 7.05 Lymphocytes Absolute 1.39(A) 1.40 - 2.90 10*3/UL Absolute Monocytes 0.97 Eosinophils Absolute 0.16(A) 0.20 - 0.70 10*3/UL Absolute Basophils 0.05 Blood specimen (specimen) Venous blood / Unknown 06/15/2018 Narrative Nancy Armendariz MA - 06/17/2018 7:10 AM T SC Lavon Bazzi MD LAB BLOOD ORDERABLES Final Result * Protein / creatinine ratio, urine (06/15/2018) Creatinine, Urine Random 113.66 mg/dL Protein Urine Random 21 mg/dl Microalbumin 19.2 mg/l Alb/Creat Ratio, Ur 16.89 mcg/mg Urine specimen (specimen) Urine specimen obtained by clean catch procedure / Unknown 06/15/2018 Lavon Bazzi MD LAB URINE ORDERABLES Final Result documented in this encounter Visit Diagnoses Diagnosis Chronic kidney disease stage 3 (HCC) Nonspecific abnormal results of function study of kidney documented in this encounter Care Teams Photographic Equipment Mechanic Relationship Specialty Start Date End Date Sam Fay PCP - General Internal Medicine 06/07/18 documented as of this encounter
--- OUTSIDE RECORDS SUMMARY | 2024-11-21 23:32 | XMS_ITS | Clinical Summary ---
Author Organization [facility] Address [address] [place] [address] Phone Care Team Providers Care Rail Splitter Name Role Phone Sam Fay Primary Care Provider [phone] Allergies Active Allergy Reactions Criticality Noted Date Comments Lisinopril Rash Low 05/19/2018 Medications * This document contains information received from the source organization and may not represent a complete record from that organization. atorvastatin (LIPITOR) 80 MG tablet Take 80 mg by mouth 1 (one) time each day Active finasteride (PROSCAR) 5 MG tablet Take 5 mg by mouth 1 (one) time each day Do not crush, chew, or split. Active insulin aspart (NovoLOG) 100 UNIT/ML injection Inject 30 Units under the skin 3 (three) times a day before meals Sliding scale Active insulin glargine (LANTUS) 100 UNIT/ML injection Inject 60 Units under the skin 1 (one) time each day Active MAGNESIUM OXIDE 400 PO Take 1 tablet by mouth 2 (two) times a day Active aspirin 81 MG tablet Take 81 mg by mouth 1 (one) time each day Active omeprazole (PriLOSEC) [address] capsule Take 20 mg by mouth 2 (two) times a day Active omega-3 acid ethyl esters (LOVAZA) 1 g capsule Take 1 g by mouth 2 (two) times a day Active tamsulosin (FLOMAX) 0.4 MG 24 hr capsule Take 0.4 mg by mouth 1 (one) time each day Active simvastatin (ZOCOR) 80 MG tablet Take 80 mg by mouth 1 (one) time each day Active furosemide (LASIX) 40 MG tablet Take 40 mg by mouth 1 (one) time each day PRN FOR SWELLING Active busPIRone (BUSPAR) 5 MG tablet Take 5 mg by mouth in the morning and 5 mg in the evening and 5 mg before bedtime. Active DULoxetine (CYMBALTA) [address] capsule Take 40 mg by mouth 1 (one) time each day Do not crush or chew. Active memantine (NAMENDA) 5 MG tablet Take 5 mg by mouth in the morning and 5 mg in the evening. Active Advair Diskus 500-50 MCG/ACT aerosol powder INHALE ONE PUFF BY MOUTH TWICE DAILY 04/17/2023 Active potassium chloride (KLOR-CON M20) 20 MEQ CR tablet Take 20 mEq by mouth if needed ONLY WHEN TAKING LASIX 04/17/2023 Active Semaglutide,0.2 5 or 0.5MG/DOS, (Ozempic, 0.25 or 0.5 MG/DOSE,) 2 MG/1.5ML solution pen-injector Inject 5 mg under the skin 06/20/2020 Active midodrine (PROAMATINE) 2.5 MG tablet Take 2.5 mg by mouth if needed PRN when he has to take lasix Active carvedilol (COREG) 3.125 MG tablet Take 1 tablet (3.125 mg total) by mouth in the morning and 1 tablet (3.125 mg total) in the evening. Take with meals. 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 Essential (primary) hypertension 06/09/2018 Stage 3b chronic kidney disease 06/09/2018 Benign prostatic hyperplasia 06/09/2018 Chronic atrial fibrillation 06/09/2018 Combined systolic and diastolic congestive heart failure 06/09/2018 Immunizations Immunization Administration Dates Next Due Influenza Split High Dose Preservative Free IM 1 ,12/15/2018 Family History Medical History Relation Comments Cancer Brother Heart disease Father Relation Status Comments Brother Father Mother Social History Tobacco Use Types Packs/Day Years Used Date Smoking Tobacco: Former Cigarettes Q uit: 1970 Smokeless Tobacco: Never Tobacco Cessation:Counseling Given: Not Answered Alcohol Use Standard Drinks/Week Comments Never 0 [...] Sign Reading Time Taken Comments Blood Pressure 98/50 06/16/2023 2:26 PM CDT Pulse 88 06/16/2023 2:26 PM CDT Temperature 36.2 C (97.2 F) 12/25/2020 11:16 AM CDT Respiratory Rate - - Oxygen Saturation 95% 06/16/2023 2:26 PM CDT Inhaled Oxygen Concentration - - Weight 92.5 kg (204 lb) 06/16/2023 2:26 PM CDT Height 175.3 cm (5' 9 ) 06/16/2023 2:26 PM CDT Body Mass Index 30.13 06/16/2023 2:26 PM CDT Plan of Treatment Health Maintenance Due Date Last Done Comments Pneumococcal Vaccine: 50+ Years (1 of 2 - PCV) 09/27/1959 Diabetes: Ophthalmology Exam 06/09/2018 Diabetes: Pedal Pulse Checked 06/09/2018 Diabetes: Sensory Foot Exam 06/09/2018 Diabetes: Visual Foot Exam 06/09/2018 Diabetes: Hemoglobin A1C 05/06/2020 020, 01/29/2018 Influenza Vaccine (#1) 2024 0, 12/15/2018 Hepatitis B Vaccine Aged Out No longe r eligible based on patient's age to complete this topic Procedures Procedure Name Priority Date/Time Associated Diagnosis Comments HEMOGLOBIN A1C (EXTERNAL RESULT ENTRY) Routine 02/06/2020 10:55 AM BLEACH SUPERVISOR from Last 3 Months or Most Recently Relevant to Health Maintenance Results * Hemoglobin A1C (02/06/2020 10:55 AM BLEACH SUPERVISOR) Hemoglobin A1C 7.0 Blood specimen (specimen) Venous blood / Unknown 02/06/2020 10:55 AM BLEACH SUPERVISOR Sam Fay LAB BLOOD ORDERABLES Final Resu lt from Last 3 Months or Most Recently Relevant to Health Maintenance Insurance [facility] Regions 1,2,3 (VACCN) Care Teams Rail Splitter Relationship Specialty Start Date End Date Sam Fay PCP - General Internal Medicine 06/07/18
--- OUTSIDE RECORDS SUMMARY | 2024-11-21 23:32 | XMS_ITS | Encounter Summary ---
Author Organization [facility] Address [address] [place] [address] Phone Care Team Providers Care Manager Animal Name Role Phone Sam Fay Primary Care Provider [phone] Encounter Details Date Type Department Care Team (Late st Contact Info) Description 03/23/2018 Orders Only [facility] [address] [place] [address] Social History Tobacco Use Types Packs/Day Years Used Date Smoking Tobacco: Never Assessed Sex and Gender Information Value Date Recorded Sex Assigned at Not on file Legal Sex Male 10:03 AM EST Gender Identity Not on file Sexual Orientation Not on file documented as of this encounter Plan of Treatment Not on file documented as of this encounter Visit Diagnoses Not on filedocumented in this encounter Care Teams Manager Animal Relationship Specialty Start Date End Date Sam Fay PCP - General Internal Medicine 06/07/18 documented as of this encounter
--- OUTSIDE RECORDS SUMMARY | 2024-11-21 23:32 | XMS_ITS | Encounter Summary ---
Author Organization [facility] Address 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 Gender Identity Not on file Sexual Orientation Not on file documented as of this encounter Plan of Treatment Upcoming Encounters Date Type Department Care Team (Late st Contact Info) Description 06/26/2025 2:45 PM CDT Office Visit [facility] [address] [place] [phone] Favio Polanco MD [address] [place] [phone] documented as of this encounter Visit Diagnoses Not on filedocumented in this encounter Additional Health Concerns Infection Onset Date Last Indicated Resolved Time R/O COVID-19 05/15/2024 05/15/2024 05/15/2024 1:12 PM CDT documented as of this encounter Care Teams Motor Overhauler Relationship Specialty Start Date End Date Sam Fay MD PCP - General Emergency Medicine 12/22/18 documented as of this encounter
--- OUTSIDE RECORDS SUMMARY | 2024-11-21 23:32 | XMS_ITS | Continuity of Care Document ---
Author Organization [facility] ([facility]) Address [address] [place] [address] Insurance Providers Payer Plan Claims Address Claims Phone Policy Number Group Number Relation Employer Guarantor Name Guarantor Guarantor Address Guarantor Phone MEDIC ARE tel:[phone] [id number] Self Jsoe Armendariz 1940 [address] [place] [address] [employer] [id number] [address] [id number] Self Jose Armendariz 1940 [address] [place] [address] [employer] [address] [address] tel:[phone] Self Jose Armendariz 1940 [address] [place] [address] Problems Condition ICD9 code ICD10 code SNOMED code Start Date End Date S tatus Aphasia R47.01 01/05/2024 Active Unspecified intracranial injury without loss of consciousness, subsequent encounter S06.9X0D 01/05/2024 Active History of falling Z91.81 01/05/2024 Ac tive Difficulty in walking, not elsewhere classified R26.2 01/06/2024 Active Hypertensive heart and chronic kidney disease with heart failure and stage 1 through stage 4 chronic kidney disease, or unspecified chronic kidney disease I13.0 01/05/2024 Active Personal history of nicotine dependence Z87.891 01/05/2024 Activ e Heart failure, unspecified I50.9 01/05/2024 Active Unspecified atrial fibrillation I48.91 01/05/2024 Active 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 Z79.01 01/05/2024 Active superintendent [employer] (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) use of aspirin Z79.82 01/05/2024 Active Type 2 diabetes mellitus with hyperglycemia E11.65 01/05/2024 Active Type 2 diabetes mellitus with diabetic neuropathy, unspecified E11.40 01/05/2024 Active Type 2 diabetes mellitus with diabetic chronic kidney disease E11.22 01/05/2024 Active Chronic kidney disease, stage 2 (mild) N18.2 01/05/2024 Active 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 Z79.4 01/05/2024 Active Mixed hyperlipidemia E78.2 01/05/2024 Active Benign prostatic hyperplasia without lower urinary tract symptoms N40.0 01/12/2024 Ac tive Unvaccinated for COVID-19 Z28.310 01/05/2024 Active Results Test Value / Unit Interpretation Reference Ran ge Blood chemistry[[id number]] Glucose [Mass/volume] in Ser um or Plasma [2345-7] 208 mg/dL N Blood chemistry[[id number]] Glucose [Mass/volume] in Ser um or Plasma [2345-7] 133 mg/dL N Blood chemistry[[id number]] Glucose [Mass/volume] in Ser um or Plasma [2345-7] 237 mg/dL N Blood chemistry[[id number]] Glucose [Mass/volume] in Ser um or Plasma [2345-7] 165 mg/dL N Blood chemistry[[id number]] Glucose [Mass/volume] in Ser um or Plasma [2345-7] 224 mg/dL N Blood chemistry[[id number]] Glucose [Mass/volume] in Ser um or Plasma [2345-7] 264 mg/dL N Blood chemistry[[id number]] Glucose [Mass/volume] in Ser um or Plasma [2345-7] 184 mg/dL N Blood chemistry[[id number]] Glucose [Mass/volume] in Ser um or Plasma [2345-7] 207 mg/dL N Blood chemistry[[id number]] Glucose [Mass/volume] in Ser um or Plasma [2345-7] 219 mg/dL N Blood chemistry[[id number]] Glucose [Mass/volume] in Ser um or Plasma [2345-7] 308 mg/dL N Blood chemistry[[id number]] Glucose [Mass/volume] in Ser um or Plasma [2345-7] 253 mg/dL N Blood chemistry[[id number]] Glucose [Mass/volume] in Ser um or Plasma [2345-7] 338 mg/dL N Blood chemistry[] Glucose [Mass/volume] in Ser um or Plasma [2345-7] 234 mg/dL N Blood chemistry[] Glucose [Mass/volume] in Ser um or Plasma [2345-7] 226 mg/dL N Blood chemistry[] Glucose [Mass/volume] in Ser um or Plasma [2345-7] 291 mg/dL N Blood chemistry[] Glucose [Mass/volume] in Ser um or Plasma [2345-7] 247 mg/dL N Blood chemistry[] Glucose [Mass/volume] in Ser um or Plasma [2345-7] 293 mg/dL N Blood chemistry[] Glucose [Mass/volume] in Ser um or Plasma [2345-7] 284 mg/dL N Blood chemistry[] Glucose [Mass/volume] in Ser um or Plasma [2345-7] 258 mg/dL N Blood chemistry[] Glucose [Mass/volume] in Ser um or Plasma [2345-7] 227 mg/dL N Blood chemistry[] Glucose [Mass/volume] in Ser um or Plasma [2345-7] 350 mg/dL N Blood chemistry[] Glucose [Mass/volume] in Ser um or Plasma [2345-7] 255 mg/dL N Blood chemistry[] Glucose [Mass/volume] in Ser um or Plasma [2345-7] 354 mg/dL N Blood chemistry[] Glucose [Mass/volume] in Ser um or Plasma [2345-7] 189 mg/dL N Blood chemistry[] Glucose [Mass/volume] in Ser um or Plasma [2345-7] 243 mg/dL N Blood chemistry[] Glucose [Mass/volume] in Ser um or Plasma [2345-7] 254 mg/dL N Blood chemistry[] Glucose [Mass/volume] in Ser um or Plasma [2345-7] 239 mg/dL N Blood chemistry[] Glucose [Mass/volume] in Ser um or Plasma [2345-7] 202 mg/dL N Blood chemistry[] Glucose [Mass/volume] in Ser um or Plasma [2345-7] 214 mg/dL N Blood chemistry[] Glucose [Mass/volume] in Ser um or Plasma [2345-7] 187 mg/dL N Blood chemistry[] Glucose [Mass/volume] in Ser um or Plasma [2345-7] 323 mg/dL N Blood chemistry[] Glucose [Mass/volume] in Ser um or Plasma [2345-7] 263 mg/dL N Blood chemistry[] Glucose [Mass/volume] in Ser um or Plasma [2345-7] 135 mg/dL N Blood chemistry[] Glucose [Mass/volume] in Ser um or Plasma [2345-7] 172 mg/dL N Blood chemistry[] Glucose [Mass/volume] in Ser um or Plasma [2345-7] 246 mg/dL N Blood chemistry[] Glucose [Mass/volume] in Ser um or Plasma [2345-7] 273 mg/dL N Blood chemistry[] Glucose [Mass/volume] in Ser um or Plasma [2345-7] 235 mg/dL N Blood chemistry[] Glucose [Mass/volume] in Ser um or Plasma [2345-7] 171 mg/dL N Blood chemistry[] Glucose [Mass/volume] in Ser um or Plasma [2345-7] 300 mg/dL N Blood chemistry[] Glucose [Mass/volume] in Ser um or Plasma [2345-7] 225 mg/dL N Blood chemistry[] Glucose [Mass/volume] in Ser um or Plasma [2345-7] 284 mg/dL N Blood chemistry[] Glucose [Mass/volume] in Ser um or Plasma [2345-7] 155 mg/dL N Blood chemistry[] Glucose [Mass/volume] in Ser um or Plasma [2345-7] 217 mg/dL N Blood chemistry[] Glucose [Mass/volume] in Ser um or Plasma [2345-7] 267 mg/dL N Blood chemistry[] Glucose [Mass/volume] in Ser um or Plasma [2345-7] 214 mg/dL N Blood chemistry[] Glucose [Mass/volume] in Ser um or Plasma [2345-7] 240 mg/dL N Blood chemistry[] Glucose [Mass/volume] in Ser um or Plasma [2345-7] 164 mg/dL N Blood chemistry[] Glucose [Mass/volume] in Ser um or Plasma [2345-7] 200 mg/dL N Blood chemistry[] Glucose [Mass/volume] in Ser um or Plasma [2345-7] 243 mg/dL N Blood chemistry[] Glucose [Mass/volume] in Ser um or Plasma [2345-7] 197 mg/dL N Blood chemistry[] Glucose [Mass/volume] in Ser um or Plasma [2345-7] 257 mg/dL N Blood chemistry[] Glucose [Mass/volume] in Ser um or Plasma [2345-7] 213 mg/dL N Blood chemistry[] Glucose [Mass/volume] in Ser um or Plasma [2345-7] 204 mg/dL N Blood chemistry[] Glucose [Mass/volume] in Ser um or Plasma [2345-7] 322 mg/dL N Blood chemistry[] Glucose [Mass/volume] in Ser um or Plasma [2345-7] 300 mg/dL N Blood chemistry[] Glucose [Mass/volume] in Ser um or Plasma [2345-7] 235 mg/dL N Blood chemistry[] Glucose [Mass/volume] in Ser um or Plasma [2345-7] 255 mg/dL N Blood chemistry[] Glucose [Mass/volume] in Ser um or Plasma [2345-7] 270 mg/dL N Blood chemistry[] Glucose [Mass/volume] in Ser um or Plasma [2345-7] 257 mg/dL N Blood chemistry[] Glucose [Mass/volume] in Ser um or Plasma [2345-7] 202 mg/dL N Blood chemistry[] Glucose [Mass/volume] in Ser um or Plasma [2345-7] 194 mg/dL N Blood chemistry[] Glucose [Mass/volume] in Ser um or Plasma [2345-7] 176 mg/dL N Blood chemistry[[id number]] Glucose [Mass/volume] in Ser um or Plasma [2345-7] 289 mg/dL N Blood chemistry[[id number]] Glucose [Mass/volume] in Ser um or Plasma [2345-7] 289 mg/dL N Blood chemistry[[id number]] Glucose [Mass/volume] in Ser um or Plasma [2345-7] 179 mg/dL N Blood chemistry[] Glucose [Mass/volume] in Ser um or Plasma [2345-7] 271 mg/dL N Blood chemistry[[id number]] Glucose [Mass/volume] in Ser um or Plasma [2345-7] 220 mg/dL N Blood chemistry[[id number]] Glucose [Mass/volume] in Ser um or Plasma [2345-7] 274 mg/dL N Blood chemistry[[id number]] Glucose [Mass/volume] in Ser um or Plasma [2345-7] 198 mg/dL N Blood chemistry[] Glucose [Mass/volume] in Ser um or Plasma [2345-7] 330 mg/dL N Blood chemistry[[id number]] Glucose [Mass/volume] in Ser um or Plasma [2345-7] 277 mg/dL N Blood chemistry[[id number]] Glucose [Mass/volume] in Ser um or Plasma [2345-7] 281 mg/dL N Blood chemistry[[id number]] Glucose [Mass/volume] in Ser um or Plasma [2345-7] 198 mg/dL N Blood chemistry[[id number]] Glucose [Mass/volume] in Ser um or Plasma [2345-7] 307 mg/dL N Blood chemistry[[id number]] Glucose [Mass/volume] in Ser um or Plasma [2345-7] 215 mg/dL N Tuberculosis reaction wheal[ 79823-1] Tuberculosis reaction wheal [15281-5] 0 mm NEG Blood chemistry[[id number]] Glucose [Mass/volume] in Ser um or Plasma [2345-7] 179 mg/dL N Blood chemistry[[id number]] Glucose [Mass/volume] in Ser um or Plasma [2345-7] 262 mg/dL N Blood chemistry[[id number]] Glucose [Mass/volume] in Ser um or Plasma [2345-7] 219 mg/dL N Blood chemistry[] Glucose [Mass/volume] in Ser um or Plasma [2345-7] 222 mg/dL N Blood chemistry[] Glucose [Mass/volume] in Ser um or Plasma [2345-7] 161 mg/dL N Blood chemistry[] Glucose [Mass/volume] in Ser um or Plasma [2345-7] 212 mg/dL N Blood chemistry[] Glucose [Mass/volume] in Ser um or Plasma [2345-7] 202 mg/dL N Blood chemistry[] Glucose [Mass/volume] in Ser um or Plasma [2345-7] 154 mg/dL N Blood chemistry[] Glucose [Mass/volume] in Ser um or Plasma [2345-7] 356 mg/dL N Blood chemistry[] Glucose [Mass/volume] in Ser um or Plasma [2345-7] 225 mg/dL N Glucose [Mass/volume] in Ser um or Plasma [2345-7] 206 mg/dL N Blood chemistry[] Glucose [Mass/volume] in Ser um or Plasma [2345-7] 173 mg/dL N Blood chemistry[] Glucose [Mass/volume] in Ser um or Plasma [2345-7] 180 mg/dL N Blood chemistry[] Glucose [Mass/volume] in Ser um or Plasma [2345-7] 151 mg/dL N Blood chemistry[] Glucose [Mass/volume] in Ser um or Plasma [2345-7] 214 mg/dL N Blood chemistry[] Glucose [Mass/volume] in Ser um or Plasma [2345-7] 242 mg/dL N Blood chemistry[] Glucose [Mass/volume] in Ser um or Plasma [2345-7] 157 mg/dL N Blood chemistry[] Glucose [Mass/volume] in Ser um or Plasma [2345-7] 269 mg/dL N Blood chemistry[] Glucose [Mass/volume] in Ser um or Plasma [2345-7] 206 mg/dL N Blood chemistry[[id number]] Glucose [Mass/volume] in Ser um or Plasma [2345-7] 275 mg/dL N Blood chemistry[[id number]] Glucose [Mass/volume] in Ser um or Plasma [2345-7] 163 mg/dL N Blood chemistry[[id number]] Glucose [Mass/volume] in Ser um or Plasma [2345-7] 209 mg/dL N Blood chemistry[[id number]] Glucose [Mass/volume] in Ser um or Plasma [2345-7] 181 mg/dL N Blood chemistry[[id number]] Glucose [Mass/volume] in Ser um or Plasma [2345-7] 266 mg/dL N Blood chemistry[[id number]] Glucose [Mass/volume] in Ser um or Plasma [2345-7] 223 mg/dL N Blood chemistry[[id number]] Glucose [Mass/volume] in Ser um or Plasma [2345-7] 226 mg/dL N Blood chemistry[[id number]] Glucose [Mass/volume] in Ser um or Plasma [2345-7] 229 mg/dL N Tuberculosis reaction wheal[ 39812-5] Tuberculosis reaction wheal [07218-8] 0 mm NEG Allergies, adverse reactions, alerts Substance Reaction Date Status Type lisinopril 01/05/2024 Non Drug Immunizations Vaccine Route Date Status COVID-19 Vaccine Unassigned Route of Administration Refused Medications Medication Instructions Route Dosage Frequency Start Date Stop Date Indications Status aspirin 81 mg tablet,delayed release (DR/EC) (aspirin) 1, oral, Once A Day oral 1.0 1.0 d 02/02 Active atorvastatin 80 mg tablet (atorvastatin) 1, oral, Once A Day oral 1.0 1.0 d 02/02 Active buspirone 5 mg tablet (buspirone) 1, oral, Three Times A Day oral 1.0 8.0 h 02/02 Active Calmoseptine (menthol-zinc oxide) 0.44-20.6 % ointment (Calmoseptine (menthol-zinc oxide)) as directed, topical, Every Shift, Buttock: Cleanse with ns and gauze, apply cream q shift and prn topical 1.0 8.0 h 02/02 Active carvedilol 12.5 mg tablet (carvedilol) 1, oral, Twice A Day oral 1.0 12.0 h 01/05 Active cholecalciferol (vitamin D3) 50 mcg (2,000 unit) capsule (cholecalcifero l (vitamin D3)) 1, oral, Once A Day oral 1.0 1.0 d 01/05 Active cholecalciferol (vitamin D3) 25 mcg (1,000 unit) tablet (cholecalcifero l (vitamin D3)) 2 tabs (2,000 unit), oral, Once A Day oral 1.0 1.0 d 02/02 Active Dulcolax (bisacodyl) (bisacodyl) 10 mg suppository (Dulcolax (bisacodyl) (bisacodyl)) 1 suppository, rectal, Once A Day - PRN, ckd give if no BM x 3 days rectal 1.0 1.0 d 02/02 Active duloxetine 20 mg capsule,delayed release(DR/EC) (duloxetine) 2, oral, Once A Day oral 1.0 1.0 d 01/05 Active duloxetine 40 mg capsule,delayed release(DR/EC) (duloxetine) 1 cap, oral, Once A Day oral 1.0 1.0 d 02/02 Active Eliquis (apixaban) 2.5 mg tablet (Eliquis (apixaban)) 1, oral, Twice A Day oral 1.0 12.0 h 02/02 Active Fiber (calcium polycarbophil) (calcium polycarbophil) 625 mg tablet (Fiber (calcium polycarbophil) (calcium polycarbophil)) 2, oral, Once A Day oral 1.0 1.0 d 02/02 Active finasteride 5 mg tablet (finasteride) 1, oral, Once A Day oral 1.0 1.0 d 02/02 Active furosemide 40 mg tablet (furosemide) 1, oral, Once A Day oral 1.0 1.0 d 02/02 Active insulin aspart U-100 100 unit/mL (3 mL) insulin pen (insulin aspart U-100) 10 units, subcutaneous, With Meals subcutaneo us 1.0 01/18 Active insulin aspart U-100 100 unit/mL (3 mL) insulin pen (insulin aspart U-100) 12 units, subcutaneous, With Meals subcutaneo us 1.0 02/02 Active Lantus Solostar U-100 Insulin (insulin glargine) 100 unit/mL (3 mL) insulin pen (Lantus Solostar U-100 Insulin (insulin glargine)) 20 units, subcutaneous, At Bedtime subcutaneo us 1.0 01/18 Active Lantus Solostar U-100 Insulin (insulin glargine) 100 unit/mL (3 mL) insulin pen (Lantus Solostar U-100 Insulin (insulin glargine)) 25 units, subcutaneous, At Bedtime subcutaneo us 1.0 02/02 Active magnesium oxide 400 mg magnesium tablet (magnesium oxide) 1, oral, Twice A Day oral 1.0 12.0 h 01/05 Active magnesium oxide 400 mg (241.3 mg magnesium) tablet (magnesium oxide) 1 tab, oral, Twice A Day oral 1.0 12.0 h 02/02 Active memantine 5 mg tablet (memantine) 1, oral, Twice A Day oral 1.0 12.0 h 02/02 Active midodrine 2.5 mg tablet (midodrine) 1, oral, Twice A Day oral 1.0 12.0 h 02/02 Active omeprazole 20 mg capsule,delayed release(DR/EC) (omeprazole) 1, oral, Twice A Day oral 1.0 12.0 h 02/02 Active Ozempic (semaglutide) 0.25 mg or 0.5 mg (2 mg/3 mL) pen injector (Ozempic (semaglutide)) 0.5mg, subcutaneous, Once a Day on Mon subcutaneo us 1.0 1.0 d 01/04 Active tamsulosin 0.4 mg capsule (tamsulosin) 1, oral, Twice A Day oral 1.0 12.0 h 02/02 Active Tubersol (tuberculin ppd) 5 tub. unit /0.1 mL solution (Tubersol (tuberculin ppd)) 0.1ml, intradermal, Once - One Time, Administer the morning after admission intraderma l 1.0 02/02 Active Tubersol (tuberculin ppd) 5 tub. unit /0.1 mL solution (Tubersol (tuberculin ppd)) 0.1ml, intradermal, Once - One Time, Administer on the day shift intraderma l 1.0 02/02 Active Tylenol (acetaminophen) 325 mg tablet (Tylenol (acetaminophen) ) 2 tabs/650mg, oral, Every 6 Hours - PRN, as needed for PRN pain/increase d tempMay give rectally if necessary oral 1.0 6.0 h 02/02 Active Vital Signs Date Vital Result Comment 02/03/2024 09:43 AM Temperature 97.8 [degF] Oxygen Saturation 94 % Respiratory Rate 16 /min Heart Rate 60 /min Blood Pressure Systolic 107 mm[Hg] Blood Pressure Diastolic 51 mm[Hg] 02/03/2024 07:54 AM Blood Pressure Systolic 119 mm[Hg] Blood Pressure Diastolic 62 mm[Hg] 02/02/2024 07:20 PM Temperature 97.2 [degF] Oxygen Saturation 94 % Respiratory Rate 19 /min Heart Rate 76 /min 02/02/2024 06:32 PM Blood Pressure Systolic 129 mm[Hg] Blood Pressure Diastolic 63 mm[Hg] 02/02/2024 09:41 AM Temperature 97.7 [degF] Oxygen Saturation 92 % Respiratory Rate 16 /min Heart Rate 85 /min Blood Pressure Systolic 112 mm[Hg] Blood Pressure Diastolic 69 mm[Hg] 02/01/2024 06:40 PM Temperature 97.4 [degF] Oxygen Saturation 94 % Respiratory Rate 18 /min Heart Rate 81 /min 02/01/2024 06:17 PM Blood Pressure Systolic 111 mm[Hg] Blood Pressure Diastolic 60 mm[Hg] 02/01/2024 09:01 AM Temperature 97.5 [degF] Oxygen Saturation 92 % Respiratory Rate 21 /min Heart Rate 88 /min Blood Pressure Systolic 130 mm[Hg] Blood Pressure Diastolic 70 mm[Hg] 01/31/2024 10:50 PM Respiratory Rate 16 /min 01/31/2024 10:49 PM Temperature 97 [degF] Oxygen Saturation 95 % Heart Rate 70 /min 01/31/2024 10:48 PM Blood Pressure Systolic 136 mm[Hg] Blood Pressure Diastolic 70 mm[Hg] 01/31/2024 08:02 AM Temperature 97.7 [degF] Oxygen Saturation 94 % Respiratory Rate 20 /min Heart Rate 89 /min Blood Pressure Systolic 132 mm[Hg] Blood Pressure Diastolic 86 mm[Hg] 01/31/2024 07:15 AM Blood Pressure Systolic 132 mm[Hg] Blood Pressure Diastolic 86 mm[Hg] 01/30/2024 07:10 PM Temperature 98.2 [degF] Oxygen Saturation 97 % Respiratory Rate 23 /min Heart Rate 54 /min Blood Pressure Systolic 150 mm[Hg] Blood Pressure Diastolic 70 mm[Hg] 01/30/2024 09:39 AM Temperature 97.8 [degF] Oxygen Saturation 95 % Respiratory Rate 18 /min Heart Rate 62 /min 01/29/2024 07:26 PM Temperature 98.1 [degF] Oxygen Saturation 97 % Respiratory Rate 21 /min Heart Rate 85 /min 01/27/2024 03:51 PM Body Weight 199 [lb_av] Body Mass Index 28.96 kg/m2 01/08/2024 12:29 PM Body Weight 197.7 [lb_av] Body Mass Index 28.77 kg/m2 01/06/2024 02:35 PM Body Weight 198.8 [lb_av] Body Mass Index 28.93 kg/m2 01/05/2024 03:05 PM Body Height 69.5 [in_us] Body Weight 197 [lb_av] Body Mass Index 28.67 kg/m2 Social History No smoking Hx information available Encounters Type CPT Code Date Location Provider Indication s encounter report 01/05/2024 04:2 5 PM - 02/03/2024 05:06 PM Pawel Reeves DO 01 Advance Directives Directive Description Verification Date Supporting Document(s) Other Directive
--- OUTSIDE RECORDS SUMMARY | 2024-11-21 23:32 | XMS_ITS | Clinical Summary ---
Author Organization [facility] Address [address] [address] Care Team Providers Care Senior Technical Trainer Name Role Phone Sam Fay MD Primary Care Provider Allergies Active Allergy Reactions Criticality Noted Date Comments Lisinopril Rash Low 05/19/2018 Medications acetaminophen (TYLENOL) 500 mg tablet Take 500 mg by mouth every 6 hours as needed. Active aspirin (KAELYN) 325 mg tablet Take 325 mg by mouth. Active atorvastatin (LIPITOR) 80 mg tablet Take 80 mg by mouth. Active carvedilol (COREG) 25 mg tablet Take 12.5 mg by mouth. Active finasteride (PROSCAR) 5 mg tablet Take 5 mg by mouth. Active fluoride, sodium, (PREVIDENT 5000 PLUS) 1.1 % Cream by dental route. Act dusty glyBURIDE (DIABETA) 5 mg tablet Take 5 mg by mouth. Active insulin aspart U-100 (NovoLOG U-100 Insulin aspart) 100 unit/mL vial Inject 20 Units by subcutaneous injection. Active insulin glargine (LANTUS) 100 unit/mL vial Inject 75 Units by subcutaneous injection. Active omega-3 acid ethyl esters (OMACOR,LOVAZA) 1 gram Capsule Take by mouth. Active omeprazole (PriLOSEC) 20 mg Capsule, Delayed Release(E.C.) Take 20 mg by mouth. Active polyethylene glycol 3350 (MIRALAX) 17 gram/dose Powder Take 17 Grams by mouth. Active pregabalin (LYRICA) 50 mg Capsule Take 50 mg by mouth. Active tamsulosin (FLOMAX) 0.4 mg capsule Take 0.4 mg by mouth. Active Active Problems No known active problems Family History Medical History Relation Name Comments Heart Disease Father Relation Name Status Comments Father Mother Social History Tobacco Use Types Packs/Day Years Used Date Smoking Tobacco: Never Smokeless Tobacco: Never Sex and Gender Information Value Date Recorded Sex Assigned at Not on file Legal Sex Male 8:37 AM CDT Gender Identity Not on file Sexual Orientation Not on file Last Filed Vital Signs Vital Sign Reading Time Taken Comments Blood Pressure 123/65 12/22/2018 3:18 PM CDT Pulse 73 12/22/2018 3:18 PM CDT Temperature - - Respiratory Rate - - Oxygen Saturation - - Inhaled Oxygen Concentration - - Weight 107 kg (236 lb) 12/22/2018 3:18 PM CDT Height 176.5 cm (5' 9.5 ) 12/22/2018 3:18 PM CDT Body Mass Index 34.35 12/22/2018 3:18 PM CDT Plan of Treatment Health Maintenance Due Date Last Done Comments DTAP/TDAP/TD VACCINES (1 - Tdap) 09[birth year]27/1959 PNEUMOCOCCAL VACCINE 50+ YEARS (1 of 1 - PCV) 09/26/18 91 ZOSTER VACCINE (1 of 2) 1990 RSV VACCINE (60+ or ) (1 - 1-dose 75+ series) 09/27/2015 INFLUENZA VACCINE (#1) 2024 Care Teams Senior Technical Trainer Relationship Specialty Start Date End Date Sam Fay MD PCP - General Emergency Medicine 12/22/18
--- OUTSIDE RECORDS SUMMARY | 2024-11-21 23:32 | XMS_ITS | Encounter Summary ---
Author Organization [facility] Address [address] [place] [address] Phone Care Team Providers Care Bath Tester Name Role Phone Sam Fay Primary Care Provider [phone] Encounter Details Date Type Department Care Team (Late st Contact Info) Description 10/09/2018 Orders Only [facility] [address] [place], [place] [id number] Lavon Bazzi MD [address] [place] [address] Chronic kidney disease stage 3 Social History Tobacco Use Types Packs/Day Years [...] Name Priority Date/Time Associated Diagnosis Comments PROTEIN / CREATININE RATIO, URINE Routine 10/07/2018 9:00 AM CDT Chronic kidney disease stage 3 VITAMIN D 25 HYDROXY Routine 10/07/2018 9:00 AM CDT Chronic kidney disease stage 3 CBC Routine 10/07/2018 9:00 AM CDT Chronic kidney disease stage 3 PTH, INTACT Routine 10/07/2018 9:00 AM CDT Chronic kidney disease stage 3 RENAL FUNCTION PANEL Routine 10/07/2018 9:00 AM CDT Chronic kidney disease stage 3 documented in this encounter Results * Vit D 25 hydroxy (10/07/2018 9:00 AM CDT) Vitamin D, 25-OH, Total 41.5 30 - 96 ng/mL Blood specimen (specimen) Venous blood / Unknown 10/07/2018 9:00 AM CDT Suad Ramirez LPN - 10/08/2018 4:58 PM CDT waiter/waitress captain lab Dept. Of [place] [address] phone [phone] fax Lavon Bazzi MD LAB BLOOD ORDERABLES Final Result * PTH, intact (10/07/2018 9:00 AM CDT) Parathyroid Hormone, Intact 85.8 18.1 - 88.5 pg/mL Blood specimen (specimen) Venous blood / Unknown 10/07/2018 9:00 AM CDT Lavon Bazzi MD LAB BLOOD ORDERABLES Final Result * Protein / creatinine ratio, urine (10/07/2018 9:00 AM CDT) Creatinine, Urine Random 132.37 63 - 166 mg/dL Protein Urine Random 18.2 mg/dL Alb/Creat Ratio, Ur 21.00 <30 mg/mg Microalbumin 27.8 mg/L Urine specimen (specimen) Urine specimen obtained by clean catch procedure / Unknown 10/07/2018 9:00 AM CDT Suad Ramirez LPN - 10/08/2018 4:58 PM CDT waiter/waitress captain lab Dept. Of [address] [address] phone [phone] fax Lavon Bazzi MD LAB URINE ORDERABLES Final Result * CBC (10/07/2018 9:00 AM CDT) WBC 8.7 K/uL Red Blood Cell Count 4.44 Hemoglobin 12.8 g/dL Hematocrit 39.8 % MCV 89.6 MCH 28.8 MCHC 32.2 RDW 15.2 Platelet Count 162 MPV 10.2 Absolute Neutrophils 6.74 Absolute Lymphocytes 1.11 Absolute Monocytes 0.60 Absolute Eosinophils 0.14 Absolute Basophils 0.05 Neutrophils 77.6 K/uL Lymphocytes 12.8 Monocytes 6.9 Eosinophils 1.6 Basophils 0.6 Blood specimen (specimen) Venous blood / Unknown 10/07/2018 9:00 AM CDT Narrative Suad Baker LPN - 10/08/2018 4:58 PM CDT waiter/waitress captain lab Dept. Of [address] [address] phone [phone] fax Lavon Bazzi MD LAB BLOOD ORDERABLES Final Result * (ABNORMAL) Renal function panel (10/07/2018 9:00 AM CDT) Albumin 4.2 3.5 - 5.0 g/dL BUN 28(A) 4 - 21 mg/dL Calcium 10.0 8.7 - 10.7 mg/dL Chloride 103 99 - 108 Bicarbonate (CO2) 29 22 - 30 mmol/L Creatinine 1.87(A) 0.60 - 1.30 mg/dL eGFR 35.1 mL/min/1.7 3m*2 eGFR Non- 43.0 mL/min/1.7 3m*2 Glucose 204 Phosphorus, Serum 3.7 Potassium 5.3 3.4 - 5.5 Sodium 137 137 - 147 Blood specimen (specimen) Venous blood / Unknown 10/07/2018 9:00 AM CDT Narrative Suad Baker, BUSINESS CONTINUITY COORDINATOR - 10/08/2018 4:58 PM CDT waiter/waitress captain lab Dept. Of [address] [address] phone [phone] fax us Lavon Bazzi MD LAB BLOOD ORDERABLES Final Result documented in this encounter Visit Diagnoses Diagnosis Chronic kidney disease stage 3 (HCC) documented in this encounter Care Teams Bath Tester Relationship Specialty Start Date End Date Sam Fay PCP - General Internal Medicine 06/07/18 documented as of this encounter
--- NOTE | 2024-11-21 23:55 | W.ED.ABDPA2 ---
HPI - Abdominal Pain General: Chief Complaint: Abdominal Pain Stated Complaint: ABD Pain Time Seen by Provider: 11/21/24 23:26 History of Present Illness: 84-year-old man with a history of chronic anticoagulation, atrial fibrillation, depression, hyperlipidemia, seizures, BPH, diabetes, hypertension, CHF and coronary artery disease who presents to the emergency room with lower abdominal pain. This started earlier today. He is quite tender and appears somewhat distended in the suprapubic region. Has been peeing limited amounts and very regularly. No known fevers. He does not feel like it hurts to urinate. No fevers. No altered mental status. Related Data Home Medications ?Medication ?Instructions ?Recorded ?Confirmed atorvastatin 80 mg tablet 80 mg PO QPM 03/31/19 07/30/23 calcium polycarbophil 625 mg tablet 1,250 mg PO DAILY 03/31/19 07/30/23 magnesium oxide 400 mg (241.3 mg 400 mg PO BID 03/31/19 07/30/23 magnesium) tablet (MagOx) omeprazole 20 mg tablet,delayed 20 mg PO BID 03/31/19 07/30/23 release cholecalciferol (vitamin D3) 50 2,000 unit PO QPM 02/14/20 07/30/23 mcg (2,000 unit) tablet (Vitamin D3) aspirin 81 mg tablet,delayed 81 mg PO BEDTIME 07/20/20 07/30/23 release finasteride 5 mg tablet 5 mg PO QPM 07/20/20 07/30/23 duloxetine 20 mg capsule,delayed 40 mg PO DAILY 09/05/22 07/30/23 release memantine 5 mg tablet 5 mg PO BID 09/05/22 07/30/23 semaglutide 0.25 mg or 0.5 mg (2 0.5 mg SUBCUT Q7D 09/05/22 07/30/23 mg/3 mL) subcutaneous pen injector (Ozempic) buspirone 10 mg tablet 5 mg PO TID 04/14/23 07/30/23 pyridoxine (vitamin B6) 100 mg 100 mg PO QAM 04/14/23 07/30/23 tablet (Vitamin B-6) vitamin B complex 2 tab PO QAM 04/14/23 07/30/23 acetaminophen 500 mg tablet 500 mg PO QID PRN Pain 07/09/23 07/30/23 carvedilol 3.125 mg tablet 3.125 mg PO BID 07/09/23 07/30/23 fluoride (sodium) 1.1 % dental 1 applic dental DAILY 07/09/23 07/30/23 cream (Sodium Fluoride 5000 Plus) furosemide 40 mg tablet 40 mg PO QAM PRN Edema 07/09/23 07/30/23 midodrine 10 mg tablet 10 mg PO TID PRN LOW BLOOD 07/09/23 07/30/23 omega 4-rnx-tvz-fish oil 1,000 mg 1 cap PO BID 07/09/23 07/30/23 (120 mg-180 mg) capsule (Fish Oil) potassium chloride 20 mEq 20 meq PO DAILY PRN with lasix 07/09/23 07/30/23 tablet,extended release(part/cryst) insulin glargine 100 unit/mL 20 unit SUBCUT BEDTIME 07/30/23 07/30/23 subcutaneous solution (Lantus U-100 Insulin) Previous Rx's ?Medication ?Instructions ?Recorded tamsulosin 0.4 mg capsule 0.4 mg PO BID #180 caps 09/27/20 albuterol sulfate 90 mcg/actuation 2 inh inhalation Q4H PRN shortness 04/04/23 aerosol inhaler of breath or wheezing #6.7 grams diabetic shoes with 3 inserts #1 ea 05/29/23 apixaban 5 mg tablet (Eliquis) See Rx Instructions .Route 08/05/23 .COMPLEX #90 tabs ciprofloxacin HCl 500 mg tablet 500 mg PO BID 7 days #14 tabs 11/22/24 metronidazole 500 mg tablet 500 mg PO Q8H 7 days #21 tabs 11/22/24 Allergies Allergy/AdvReac Type Severity Reaction Status Date / Time lisinopril Allergy ALGY-Rash Verified 11/20/23 13:54 Review of Systems Narrative: Constitutional symptoms: Negative except as documented in HPI. Skin symptoms: Negative except as documented in HPI. Eye symptoms: Negative except as documented in HPI. ENMT symptoms: Negative except as documented in HPI. Respiratory symptoms: Negative except as documented in HPI. Cardiovascular symptoms: Negative except as documented in HPI. Gastrointestinal symptoms: Negative except as documented in HPI. Genitourinary symptoms: Negative except as documented in HPI. Musculoskeletal symptoms: Negative except as documented in HPI. Neurologic symptoms: Negative except as documented in HPI. Psychiatric symptoms: Negative except as documented in HPI. Endocrine symptoms: Negative except as documented in HPI. PFSH ED PFSH: Medical History (Updated 11/22/24 @ 02:55 by Selma Beck MD) Depression Chronic kidney disease Hyperlipidemia Atrial fibrillation Urgency incontinence Benign prostatic hyperplasia with lower urinary tract symptoms Urolithiasis Carotid bruit Syncope Diabetes mellitus Hypertension CHF (congestive heart failure) CAD (coronary artery disease) This patient had a coronary bypass surgery in 2008 along with a mitral valve repair and a maze procedure, at the [facility] in [place]. Surgical History History of tonsillectomy and adenoidectomy History of loop recorder placed late 2020 or early 2021 H/O carpal tunnel repair bilateral S/P trigger finger release History of maze procedure History of mitral valve replacement with bioprosthetic valve S/P ureteral stent placement Hx of CABG Family History Mother , AT AGE 86 No problems noted. Father , AT AGE 65 Stroke Other Hyperlipidemia Hypertension Social History Smoking and tobacco/nicotine status: unknown if used tobacco/nicotine Alcohol intake: never Substance/Drug Use: never Lives independently: Yes Marital status: / Current occupational status: retired Physical Exam Narrative: EXAM NARRATIVE: General: Alert, no acute distress. Skin: Warm, dry. Head: Normocephalic, atraumatic. Neck: Supple, trachea midline. Eye: Extraocular movements are intact. Ears, nose, mouth and throat: mucosa moist. Cardiovascular: Regular, Normal peripheral perfusion. Respiratory: Lungs are clear to auscultation, respirations are non-labored, breath sounds are equal, Symmetrical chest wall expansion. Gastrointestinal: Soft, moderate suprapubic pain. Some distention in that area. Musculoskeletal: Normal ROM, no deformity. Neurological: Alert and oriented, No focal neurological deficit observed. Psychiatric: Cooperative, appropriate mood & affect. Course Vital Signs: Vital signs: Vital Signs Temperature 97.6 F 11/21/24 23:22 Pulse Rate 87 11/22/24 02:30 Respiratory Rate 15 11/21/24 23:22 Blood Pressure 157/86 09/16/25 02:30 Pulse Oximetry 99 11/22/24 02:30 Oxygen Delivery Me thod Nasal Cannula 11/22/24 02:30 Oxygen Flow Rate 3 11/22/24 02:30 MDM - Abdominal Pain Medical Decision Making Medical decision making: Differential diagnosis including but not limited to and based on the above HPI, review of systems and physical exam: In this patient with pelvic pain and nausea would have concern for urinary tract infection, diverticulitis, passing kidney stones, gastroenteritis. Orders placed to evaluate differential diagnosis based on the above differential, HPI and physical exam Lab Review: Laboratory results were reviewed and interpreted by myself the emergency room physician. Mild leukocytosis. No anemia. BUN/creatinine of 36 and 1.9. I do not know his baseline. A liter of fluids was given. Urinalysis negative for infection. CT of the abdomen pelvis: Cardiomegaly. Coronary disease. Enlarging pancreatic head cystic lesion. Recommend MRCP. I discussed this with family and they will arrange for follow-up with their primary. There is some stranding in the left lower quadrant which may be an early diverticulitis which fits with the exam and the history. This was reviewed and interpreted by myself the emergency room physician. I also reviewed the radiology report. I reviewed the patient's medical record. Reexamination: Patient remained stable. No increased work of breathing. No altered mental status. No focal motor deficits. Assessment and plan: Diverticulitis ?First dose antibiotics here in the emergency room - Discharged home - Discussed plan with patient. Answered any questions. - Evaluation and treatment of this problem were appropriate in the emergency setting. Lab Data 11/22/24 00:12 11/22/24 00:12 Labs/Radiology: Radiology Impressions Abdomen/Pelvis CT 11/22/24 01:28 IMPRESSION: 1. Cardiomegaly. 2. Moderate to severe three-vessel coronary atherosclerosis. 3. Increased size of a 2.4 cm pancreatic head/uncinate process cystic lesion. Recommend MRCP for further characterization. 4. Nonspecific pericolonic fat stranding in the left lower quadrant with associated minimal diverticular disease. Correlate for signs/symptoms of mild diverticulitis. 5. Prostatomegaly. Correlate with PSA. 6. Otherwise, no acute process in the abdomen or pelvis to explain the patient's symptoms. COMMENTS: Consistent with the [place] [employer]'s Incidental Findings Committee white paper (J Am Tulio Radiol 2018): Any incidental renal lesion less than 1 cm or classified as too small to characterize, or any incidental cystic renal lesion characterized as simple-appearing, is likely benign. No follow-up imaging is recommended for these lesions per consensus recommendations based on imaging criteria. Laboratory Results WBC 13.13 10^3/uL (3.29-11.43) H 11/22/24 00:12 RBC 4.90 10^6/uL (3.85-5.65) 11/22/24 00:12 Hgb 14.90 g/dL (11.27-16.99) 11/22/24 00:12 Hct 45.3 % (37-53) 11/22/24 00:12 MCV 92.4 fl (82-101) 11/22/24 00:12 MCH 30.4 pg (27-33) 11/22/24 00:12 MCHC 32.9 g/dL (30-55) 11/22/24 00:12 RDW 14.1 % (12.1-15.1) 11/22/24 00:12 Plt Count 184 10^3/cmm (157-399) 11/22/24 00:12 MPV 8.9 fL (7.4-10.4) 11/22/24 00:12 Neut % (Auto) 73.8 % 11/22/24 00:12 Lymph % (Auto) 15.8 % 11/22/24 00:12 [place] % (Auto) 7.5 % 11/22/24 00:12 Eos % (Auto) 1.8 % 11/22/24 00:12 Baso % (Auto) 0.5 % 11/22/24 00:12 Neut # (Auto) 9.68 10^3/uL (1.8-7.7) H 11/22/24 00:12 Lymph # (Auto) 2.1 10^3/uL (0.8-4.8) 11/22/24 00:12 [place] # (Auto) 1.0 10^3/uL (0.2-0.9) H 11/22/24 00:12 Eos # (Auto) 0.2 10^3/uL (0.0-0.8) 11/22/24 00:12 Baso # (Auto) 0.1 10^3/uL (0.0-0.1) 11/22/24 00:12 Nucleated RBC % (auto) 0 % 11/22/24 00:12 Nucleated RBCs # 0.0 /100WBC 11/22/24 00:12 Sodium 140 mmol/L (136-145) 11/22/24 00:12 Potassium 4.2 mmol/L (3.5-5.1) 11/22/24 00:12 Chloride 104 mmol/L (98-107) 11/22/24 00:12 Carbon Dioxide 22 mmol/L (22-29) 11/22/24 00:12 Anion Gap 18.2 (5-19) 11/22/24 00:12 BUN 36 mg/dL (8-23) H 11/22/24 00:12 Creatinine 1.9 mg/dL (0.7-1.2) H 11/22/24 00:12 GFR Calculation Not Reportable 11/22/24 00:12 Glucose 196 mg/dL (65-115) H 11/22/24 00:12 Calculated Osmolality 304 mOsm/kg (285-295) H 11/22/24 00:12 Lactic Acid 1.7 mmol/L (0.5-2.2) 11/22/24 00:12 Calcium 10.0 mg/dL (8.5-10.5) 11/22/24 00:12 Total Bilirubin 0.5 mg/dL (0.15-1.2) 11/22/24 00:12 AST 9 U/L (0-40) 11/22/24 00:12 ALT 12 U/L (0-41) 11/22/24 00:12 Alkaline Phosphatase 111 U/L (40-130) 11/22/24 00:12 C-Reactive Protein 9.1 mg/L (0.0-4.9) H 11/22/24 00:12 Total Protein 7.2 g/dL (6.6-8.7) 11/22/24 00:12 Albumin 4.1 g/dL (3.5-5.2) 11/22/24 00:12 Globulin 3.1 g/dL (1.3-4.6) 11/22/24 00:12 Lipase 20 U/L (13-60) 11/22/24 00:12 Urine Color Yellow (Yellow) 11/22/24 00:24 Urine Appearance Cloudy (CLEAR) A 11/22/24 00:24 Urine pH 5.5 (5-7) 11/22/24 00:24 Ur Specific [place] 1.028 (1.005-1.030) 11/22/24 00:24 Urine Protein Trace (Negative) A 11/22/24 00:24 Urine Glucose (UA) 2+ (Normal) H 11/22/24 00:24 Urine Ketones Trace (Negative) 11/22/24 00:24 Urine Blood Negative (Negative) 11/22/24 00:24 Urine Nitrate Negative (Negative) 11/22/24 00:24 Urine Bilirubin Negative (Negative) 11/22/24 00:24 Urine Urobilinogen 1.0 mg/dL (Negative) 11/22/24 00:24 Ur Leukocyte Esterase Negative (Negative) 11/22/24 00:24 Urine RBC 0-4 /hpf (0-2) H 11/22/24 00:24 Urine WBC 0-4 /hpf (0-5) H 11/22/24 00:24 Ur Squamous Epith Cells 10-15 /hpf (0-5) H 11/22/24 00:24 Amorphous Sediment Not Reportable 11/22/24 00:24 Urine Bacteria Trace /hpf (NONE) 11/22/24 00:24 All radiology interpretation(s) finalized by discharge Discharge Plan Discharge Patient Disposition: Home Clinical Impression: Diverticulitis, Pancreatic mass Condition: Stable Prescriptions: New metronidazole 500 mg tablet 500 mg PO Q8H 7 Days Qty: 21 0RF ciprofloxacin HCl 500 mg tablet 500 mg PO BID 7 Days Qty: 14 0RF No Action tamsulosin 0.4 mg capsule 0.4 mg PO BID Qty: 180 3RF memantine 5 mg tablet 5 mg PO BID duloxetine 20 mg capsule,delayed release(DR/EC) 40 mg PO DAILY Ozempic 0.25 mg or 0.5 mg (2 mg/3 mL) pen injector 0.5 mg SUBCUT Q7D Rx Instructions: ON THURSDAY (DME) diabetic shoes with 3 inserts See Rx Instructions .Route .MEDSUPPLY Qty: 1 0RF Rx Instructions: As directed to the shoe gulida Eliquis 5 mg tablet See Rx Instructions .ROUTE .COMPLEX Qty: 90 3RF Dose Instruction: TAKE ONE-HALF TABLET BY MOUTH TWICE A DAY FOR ATRIAL FIBRILLATION. THIS TABLET IS TO BE CUT IN HALF FOR YOUR DOSE Rx Instructions: TAKE ONE-HALF TABLET BY MOUTH TWICE A DAY FOR ATRIAL FIBRILLATION. THIS TABLET IS TO BE CUT IN HALF FOR YOUR DOSE atorvastatin 80 mg Tablet 80 mg PO QPM magnesium oxide [MagOx] 400 mg (241.3 mg magnesium) Tablet 400 mg PO BID calcium polycarbophil 625 mg Tablet 1,250 mg PO DAILY omeprazole 20 mg Tablet,Delayed Release (Dr/Ec) 20 mg PO BID cholecalciferol (vitamin D3) [Vitamin D3] 50 mcg (2,000 unit) tablet 2,000 unit PO QPM aspirin 81 mg Tablet,Delayed Release (Dr/Ec) 81 mg PO BEDTIME finasteride 5 mg Tablet 5 mg PO QPM buspirone 10 mg Tablet 5 mg PO TID vitamin B complex Tablet 2 tab PO QAM pyridoxine (vitamin B6) [Vitamin B-6] 100 mg Tablet 100 mg PO QAM furosemide 40 mg tablet 40 mg PO QAM PRN (Reason: Edema) acetaminophen 500 mg Tablet 500 mg PO QID PRN (Reason: Pain) carvedilol 3.125 mg Tablet 3.125 mg PO BID Rx Instructions: must administer with a meal/food potassium chloride 20 mEq tablet,ER particles/crystals 20 meq PO DAILY PRN (Reason: with lasix) midodrine 10 mg tablet 10 mg PO TID PRN (Reason: LOW BLOOD) fluoride (sodium) [Sodium Fluoride 5000 Plus] 1.1 % Cream 1 applic DENTAL DAILY omega 6-fyw-dnz-fish oil [Fish Oil] 1,000 mg (120 mg-180 mg) Capsule 1 cap PO BID albuterol sulfate 90 mcg/actuation HFA aerosol inhaler 2 inh INHALATION Q4H PRN (Reason: shortness of breath or wheezing) Qty: 6.7 1RF Lantus U-100 Insulin 100 unit/mL solution 20 unit SUBCUT BEDTIME Discharge Orders: Discharge ED (Routine); Ordered 11/22/24 Ordered By: Selma Beck Referrals: Lena Orellana MD [Primary Care Provider, Family Practice] Discharge Diet: Advance as tolerated Discharge Activity: Increase activity as tolerated Patient Instructions: Diverticulitis (ED), Opioid Safety, Pain Management, Patient Portal & [place] Instructions Activity Restrictions/Additional Instructions: Please discuss findings of your CT scan with your primary provider. There is a possible lesion on the pancreas that may need a procedure called an MRCP. [facility]. You have been screened and evaluated and felt safe for discharge. Health conditions do change or evolve sometimes and as such it is important that you follow up with your Primary Doctor to be re checked, 3-5 days is a general good time frame for follow up. You are always welcome to return to the ED for re assessment if your symptoms are worsening or you have new concerns Print Language: Maltese Coding Level of Care Code ED [employer] Administrator for Nathaniel Alicea
[2024-11-22 00:01] VITALS: BP 102/60; PULSE 94; O2SAT 98
[2024-11-22 00:31] LABS: Hematocrit 45.3 % (37-53); Hemoglobin 14.90 g/dL (11.27-16.99); Mean Corpuscular HGB Conc 32.9 g/dL (30-55); Mean Corpuscular Hemoglobin 30.4 pg (27-33); Mean Corpuscular Volume 92.4 fl (82-101); Nucleated Red Blood Cells % 0 %; Platelet Count 184 10^3/cmm (157-399); Red Blood Count 4.90 10^6/uL (3.85-5.65); White Blood Count 13.13 10^3/uL (3.29-11.43)
[2024-11-22 00:46] LABS: Alanine Aminotransferase 12 U/L (0-41); Albumin Level 4.1 g/dL (3.5-5.2); Alkaline Phosphatase 111 U/L (40-130); Anion Gap 18.2 (5-19); Aspartate Amino Transferase 9 U/L (0-40); Blood Urea Nitrogen 36 mg/dL (8-23); Calcium 10.0 mg/dL (8.5-10.5); Carbon Dioxide 22 mmol/L (22-29); Chloride 104 mmol/L (98-107); Creatinine Clr Calc Pharmacy 33.0071; Globulin 3.1 g/dL (1.3-4.6); Glucose 196 mg/dL (65-115); Lipase 20 U/L (13-60); Osmolality Calculated 304 mOsm/kg (285-295); Potassium 4.2 mmol/L (3.5-5.1); Sodium 140 mmol/L (136-145); Total Protein 7.2 g/dL (6.6-8.7)
[2024-11-22 00:47] LABS: Lactic Sepsis W/Reflex 1.7 mmol/L (0.5-2.2)
[2024-11-22 00:48] LABS: Glucose Urine UA 2+ (Normal); Nitrate Urine Negative (Negative); Specific Gravity, Urine 1.028 (1.005-1.030)
[2024-11-22 00:54] LABS: UA Manual Slide Review YES
--- NOTE | 2024-11-22 01:28 | CTR_ITS ---
PROCEDURE INFORMATION: Exam: CT Abdomen And Pelvis Without Contrast Exam date and time: 11/22/2024 1:36 AM Age: 84 years old Clinical indication: Abdominal pain TECHNIQUE: Imaging protocol: Computed tomography of the abdomen and pelvis without contrast. Radiation optimization: All CT scans at this facility use at least one of these dose optimization techniques: automated exposure control; mA and/or kV adjustment per patient size (includes targeted exams where dose is matched to clinical indication); or iterative reconstruction. COMPARISON: CT kidney stone [id number] 01/19/2018 12:38 AM RADIATION DOSE METRICS: Total DLP (mGy-cm): 2239.35 FINDINGS: Lungs: Dependent atelectasis is noted in the lung bases. Heart: The heart is enlarged. Coronary arteries: Moderate to severe three-vessel coronary atherosclerosis present. Liver: Normal. No mass. Gallbladder and biliary ducts: Normal. No calcified stones. No ductal dilation. Pancreas: A 2.4 cm cystic lesion of the pancreatic head/uncinate process is increased in size (series 12, image 32). Spleen: Normal. No splenomegaly. Adrenal glands: Normal. No mass. Kidneys and ureters: Simple left renal cysts are present (Bosniak 1). No follow-up required. 3 mm interpolar nonobstructive renal stone versus vascular calcification (series 8, image 40). Stomach and bowel: Minimal diverticular disease of the sigmoid colon is noted. Minimal pericolonic fat stranding is noted in the left lower quadrant. No substantial colonic wall thickening. Appendix: No evidence of appendicitis. Intraperitoneal space: Unremarkable. No free air. No significant fluid collection. Vasculature: Mild atherosclerosis of the aorta and its major branching vessels is noted. Lymph nodes: Unremarkable. No enlarged lymph nodes. Urinary bladder: Unremarkable as visualized. Reproductive: The prostate is enlarged. Bones/joints: Degenerative joint and disc disease is seen in the imaged spine. Soft tissues: Unremarkable. CT/CT abdomen pelvis wo con [id number] IMPRESSION: 1. Cardiomegaly. 2. Moderate to severe three-vessel coronary atherosclerosis. 3. Increased size of a 2.4 cm pancreatic head/uncinate process cystic lesion. Recommend MRCP for further characterization. 4. Nonspecific pericolonic fat stranding in the left lower quadrant with associated minimal diverticular disease. Correlate for signs/symptoms of mild diverticulitis. 5. Prostatomegaly. Correlate with PSA. 6. Otherwise, no acute process in the abdomen or pelvis to explain the patient's symptoms. COMMENTS: Consistent with the [employer] [employer]'s Incidental Findings Committee white paper (J Am Tulio Radiol 2018): Any incidental renal lesion less than 1 cm or classified as too small to characterize, or any incidental cystic renal lesion characterized as simple-appearing, is likely benign. No follow-up imaging is recommended for these lesions per consensus recommendations based on imaging criteria.
[2024-11-22 01:30] VITALS: PULSE 86; O2SAT 97
[2024-11-22 02:00] VITALS: BP 165/90; PULSE 89; O2SAT 95
[2024-11-22 02:30] VITALS: BP 157/86; PULSE 87; O2SAT 99
[2024-11-22] MEDS: HYDROcodone-acetaminophen 5-325 mg Tablet 1 TAB PO (03:18)
[2024-11-22] MEDS: metroNIDAZOLE IV 500 MG/100 ML PREMIX 100 MG IV (03:18)
[2024-11-22 03:44] VITALS: BP 148/72; PULSE 90; O2SAT 97
== END 2024-11-22 03:55 | disposition home or self-care (01) ==
PROVIDERS: Emergency Provider Emergency Medicine; PCP Family Medicine
DX: K57.92 Diverticulitis of intestine, part unspecified, without perforation or abscess without bleeding (principal); K86.9 Disease of pancreas, unspecified; Z79.01 Long term (current) use of anticoagulants; Z79.82 Long term (current) use of aspirin; Z95.1 Presence of aortocoronary bypass graft; I25.10 Atherosclerotic heart disease of native coronary artery without angina pectoris; E78.5 Hyperlipidemia, unspecified; E11.22 Type 2 diabetes mellitus with diabetic chronic kidney disease; I13.0 Hypertensive heart and chronic kidney disease with heart failure and stage 1 through stage 4 chronic kidney disease, or unspecified chronic kidney disease; N18.9 Chronic kidney disease, unspecified; I50.9 Heart failure, unspecified
CPT/HCPCS: 36415; 51798; 74176; 80053; 81001; 83605; 83690; 85025; 86140; 87040; 96365; 99285; J3490; J7030; J9999

== ENCOUNTER 2025-01-19 04:38 | Emergency (ER) | payer OTHER, SELFPAY ==
--- OUTSIDE RECORDS SUMMARY | 2024-02-09 08:01 | XMS_ITS | Encounter Summary ---
Author Name [facility] [place] [facility] [place] [facility] [place] Address [address] [place] [address] Care Team Providers Care Roll Up Operator Name Role Phone RAIZA BREAUX Primary Care Provider Unavailabl e Insurance Providers: All historical and current Section Date Range: From patient's date of to the date document was created. This section includes the names of all active insurance providers for the patient. Insurance Provider Type of Coverage Plan Name Start of Policy Coverage End of Policy Coverage Group Number Member ID Insurance Provider's Telephone Number Policy Kidd's Name Patient's Relationship to Policy Kidd MEDICARE (WNR) MEDICARE (M) PART B Aug 07, 2008 PART B [id number] MIMA DOMINGUEZ ERT PATIENT MEDICARE (WNR) MEDICARE (M) PART B Aug 07, 2008 PART B [id number] ALBERTOMIMA ERT PATIENT MEDICARE (WNR) MEDICARE (M) PART A Sep 06, 2005 PART A [id number] ALBERTOMIMA ERT PATIENT MEDICARE (WNR) MEDICARE (M) PART A Sep 06, 2005 PART A [id number] ALBERTOMIMA ERT PATIENT MEDICARE PART D (WNR) MEDICARE (M) PART D Apr 09, 2010 PART D [id number] [phone] MIMA DOMINGUEZ ERT PATIENT [employer] [facility] PLAN N PLAN N July 08, 2019 PLANN [id number] [phone] MIMA DOMINGUEZ ERT PATIENT Selected Encounter This section includes the information on record at CT for the Encounter. Date/Time Encounter Type Encounter Description Reason Pro vider Source Feb 09, 2024 02:01 PM Outpatient Encounter PRIMARY CARE/MEDICINE IHE Encounter Template Text not used by CT Plan of Treatment: Future Appointments (+ 6 months) and Future Tests (+/- 45 days) The Plan of Treatment section includes future care activities for the patient from all CT treatmentfacilities. This section includes future appointments and future orders which are active, pending or scheduled. Future Appointments This section includes appointments that were scheduled to occur 6 months from the date of the Encounter, up to a maximum of 20 appointments. The data comes from all [facility]. Appointment Date/Time Appointment Type Appointme nt Facility Name Feb 19, 2024 10:30 AM AMBULATORY - MEDICINE [facility] [place] [facility] Feb 25, 2024 02:00 PM AMBULATORY - MEDICINE [facility] [place] [place] [facility] Feb 29, 2024 01:15 PM AMBULATORY - [place]ICINE [place] [facility] Mar 07, 2024 02:00 PM AMBULATORY [place]IC[place] [facility] Mar 31, 2024 07:00 PM AMBULATORY - [place]IC[place] [facility] May 05, 2024 02:15 PM AMBULATORY - [place]IC[place] [facility] May 26, 2024 01:30 PM AMBULATORY - [place]IC[place] [facility] Jun 02, 2024 02:00 PM AMBULATORY [place]ICINE [place] [facility] Jun 02, 2024 03:15 PM AMBULATORY - [place]IC[place] [facility] July 12, 2024 01:30 PM AMBULATORY - [place]IC[place] [facility] July 22, 2024 03:00 PM AMBULATORY - NONE [facility] Active, Pending, and Scheduled Orders This section includes a listing of several types of active, pending, and scheduled orders, including clinic medications orders, diagnostic test orders, procedure orders and consult orders; where the start date of the order is 45 days before the date of the Encounter or 45 days after the date of theEncounter. The data comes from all [facility]. Test Date/Time Test Type Test Details Facility Name Feb 19, 2024 12:00 AM Laboratory - Chemi stry Order HGA1C BLOOD [facility] Feb 19, 2024 12:00 AM Laboratory - Chemi stry Order B12 GOLD/RED SST SERUM [facility] Feb 19, 2024 12:00 AM Laboratory - Chemi stry Order BASIC METABOLIC PANEL GREEN LI/HEP BLD/PLAS PLASMA SP ONCE [facility] Feb 19, 2024 12:00 AM Laboratory - Chemi stry Order CBC BLOOD Pre-Operative [facility] Feb 19, 2024 12:00 AM Laboratory - Chemi stry Order VITAMIN D, 25-HYDROXY GOLD/RED SST [facility] Feb 19, 2024 12:00 AM Laboratory - Chemi stry Order FOLATE (PB) GOLD/RED SST [facility]UM [facility] Feb 19, 2024 12:00 AM Laboratory - Chemi stry Order CHOLESTEROL PANEL (PB) GREEN LI/HEP BLD/PLAS [facility]AS[facility] Feb 19, 2024 12:00 AM Laboratory - Chemi stry Order HEPATIC FUNCTION PROFILE (PB) GREEN LI/HEP BLD/PLAS PLASMA [facility] Feb 19, 2024 12:00 AM Laboratory - Chemi stry Order TSH (MA-PB) GOLD/RED SST [facility]UM [facility] Feb 19, 2024 12:00 AM Laboratory - Chemi stry Order MAGNESIUM GREEN LI/HEP BLD/PLAS PLASMA [facility] Feb 19, 2024 12:00 AM Laboratory - Chemi stry Order URINE ALBUMIN PROFILE-ih (PB) URINE,RANDOM [facility] Feb 19, 2024 12:00 AM Laboratory - Chemi stry Order PRO TIME (PB) BLOOD PLASMA [facility] Feb 19, 2024 12:00 AM Laboratory - Chemi stry Order APTT BLOOD PLASMA [facility] Social History: Smoking Status (Most current) and Tobacco Use (All prior to encounter date) This section includes the most current, and the historical, smoking and tobacco- related health factors from the [facility] where the Encounter took place. Current Smoking Status This section includes the most current smoking, or tobacco-related health factor, from the [facility] where the Encounter took place. Date/Time Current Smoking Status Comment Facil ity Apr 06, 2023 01:30 PM VA-TOBACCO NEVER USED [facility] Tobacco Use History This section includes a history of the smoking, or tobacco-related health factors, that were collected on or before the date of the Encounter. The data comes from the CT facility where the Encounter took place. Date/Time Smoking Status/Tobacco Use Comment F acility Feb 01, 2021 09:00 AM VA-TOBACCO FOR[facility]ER [facility] Feb 01, 2021 09:00 AM VA-TOBACCO QUIT 15 YRS OR MORE Severity= MINIMAL [facility] Jun 28, 2018 02:40 PM VA-TOBACCO FORMER USER [facility] Jun 28, 2018 02:40 PM VA-TOBACCO QUIT 15 YRS OR MORE [facility] Jan 25, 2018 02:35 PM QUIT TOBACCO >7 YEARS AGO [facility] Jan 06, 2018 08:04 AM QUIT TOBACCO >7 YEARS AGO [facility] Nov 02, 2017 11:08 AM QUIT TOBACCO >7 YEARS AGO [facility] Advance Directives: All historical and current Section Date Range: From patient's date of to the date document was created. This section includes ALL of a patient's completed or amended CT Advance and Rescinded Directives. The entries below indicate that a directive exists for the patient, but an actual copy is not included with this document. The data comes from all CT facilities. Date Advance Directives Provider Source Mar 13, 2020 ADVANCE DIRECTIVE BIBI DUFF FF [facility] Mar 13, 2020 CLINICAL WARNING BIBI DUFF F [facility] Aug 19, 2010 ADVANCE DIRECTIVE JESUS AGUERO V [facility] Aug 19, 2010 ADVANCE DIRECTIVE DISCUSSION ABRAHAM BENAVIDES [facility]
--- OUTSIDE RECORDS SUMMARY | 2024-02-19 04:30 | XMS_ITS | Encounter Summary ---
Author Name [facility] [place] [facility] [place] [facility] [facility] [place] Address [address] [place] [address] Care Team Providers Care Circuit Designer Name Role Phone PARMINDERROLANDO ANDRADEE Primary Care Provider Unavailabl e Insurance Providers: [...] PART B Aug 07, 2008 PART B [id number] MIMA DOMINGUEZ ERT PATIENT MEDICARE (WNR) MEDICARE (M) PART B Aug 07, 2008 PART B [id number] ALBERTOMIMA ERT PATIENT MEDICARE (WNR) MEDICARE (M) PART A Sep 06, 2005 PART A [id number] ALBERTOMIMA ERT PATIENT MEDICARE (WNR) MEDICARE (M) PART A Sep 06, 2005 PART A [id number] ALBERTOMIMA ERT PATIENT MEDICARE PART D (WNR) MEDICARE (M) PART D Apr 09, 2010 PART D [id number] ALBERTOMIMA PATIENT [employer] [facility] PLAN N PLAN N July 08, 2019 PLANN [id number] [phone] MIMA DOMINGUEZ PATIENT Selected Encounter This section includes the information on record at [place] for the Encounter. Date/Time Encounter Type Encounter Description Reason Provider Source Feb 19, 2024 10:30 AM OFFICE O/P EST HI 40 MIN PRIMARY CARE/MEDICINE ICD-10-CM I48.91 Unspecified atrial fibrillation RAIZA BREAUX Encounter Template Text not used by [place] Assessments - Encounter Diagnoses This section includes the primary and secondary diagnoses documented for the Encounter. Date/Time Primary/Secondary Diagnosis Diagnosis Name Provider Source Feb 19, 2024 12:21 PM PRIMARY Unspecified atrial fibrillation [facility]IZ[facility] BREAU[facility] Feb 19, 2024 12:21 PM SECONDARY Athscl heart disease of [place] coronary artery w/o ang pctrs RAIZA BREAUX [facility] Feb 19, 2024 12:21 PM SECONDARY Marcelo's esophagus without dysplasia RAIZA BREAUX [facility] Feb 19, 2024 12:21 PM SECONDARY Benign prostatic hyperplasia with lower urinary tract symp RAIZA BREAUX [facility] Feb 19, 2024 12:21 PM SECONDARY Benign prostatic hyperplasia without lower urinry tract symp RAIZA BREAUX [facility] Feb 19, 2024 12:21 PM SECONDARY Cervicalgia RAIZA BREAUX [facility] Feb 19, 2024 12:21 PM SECONDARY Disorder of kidney and ureter, unspecified RAIZA BREAUX [facility] Feb 19, 2024 12:21 PM SECONDARY Essential (primary) hypertension RAIZA BREAUX [facility] Feb 19, 2024 12:21 PM SECONDARY Headache, unspecified RAIZA BREAUX [facility] Feb 19, 2024 12:21 PM SECONDARY Heart failure, unspecified [facility] Feb 19, 2024 12:21 PM SECONDARY Hyperlipidemia, unspecified RAIZA BREAUX [facility] Feb 19, 2024 12:21 PM SECONDARY Obstructive sleep apnea (adult) (pediatric) RAIZA BREAUX [place] [facility] Feb 19, 2024 12:21 PM SECONDARY Other chronic pain RAIZA BREAUX [place] [facility] Feb 19, 2024 12:21 PM SECONDARY Other disorders of peripheral nervous system RAIZA [place]AUX [place] [facility] Feb 19, 2024 12:21 PM SECONDARY Other seizures RAIZA BREAUX [facility] Feb 19, 2024 12:21 PM SECONDARY Presence of aortocoronary bypass graft RAIZA BREAUX [facility] Feb 19, 2024 12:21 PM SECONDARY Transient cerebral ischemic attack, unspecified RAIZA BREAUX [facility] Feb 19, 2024 12:21 PM SECONDARY Traum subdr hem w/o loss of consciousness, subs RAIZA BREAUX [facility] Feb 19, 2024 12:21 PM SECONDARY Type 2 diabetes mellitus with diabetic neuropathy, unsp RAIZA BREAUX [facility] Feb 19, 2024 12:21 PM SECONDARY 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 This section includes future appointments and future orders which are active, pending or scheduled. Future Appointments This section includes appointments that were scheduled to occur 6 months from the date of the Encounter, up to a maximum of 20 appointments. The data comes from all [facility]. Appointment Date/Time Appointment Type Appointme nt Facility Name Feb 25, 2024 02:00 PM AMBULATORY - MEDICINE [facility] Feb 29, 2024 01:15 PM AMBULATORY - MEDICINE [facility] Mar 07, 2024 02:00 PM AMBULATORY - MEDICINE [facility] Mar 31, 2024 07:00 PM AMBULATORY - MEDICINE [facility] May 05, 2024 02:15 PM AMBULATORY - MEDICINE [facility] May 26, 2024 01:30 PM AMBULATORY - MEDICINE [facility] Jun 02, 2024 02:00 PM AMBULATORY - MEDICINE [facility] Jun 02, 2024 03:15 PM AMBULATORY - MEDICINE [facility] July 12, 2024 01:30 PM AMBULATORY - MEDICINE [facility] July 22, 2024 03:00 PM AMBULATORY - NONE [facility] Aug 18, 2024 10:45 AM AMBULATORY - NONE [facility] Active, Pending, and Scheduled Orders This section includes a listing of several types of active, pending, and scheduled orders, including clinic medications orders, diagnostic test orders, procedure orders and consult orders; where the start date of the order is 45 days before the date of the Encounter or 45 days after the date of theEncounter. The data comes from all [facility] facilities. Test Date/Time Test Type Test Details Facility Name Feb 19, 2024 12:00 AM Laboratory - Chemi stry Order HGA1C BLOOD [facility] Feb 19, 2024 12:00 AM Laboratory - Chemi stry Order B12 GOLD/RED SST SERUM [facility] Feb 19, 2024 12:00 AM Laboratory - Chemi stry Order BASIC METABOLIC PANEL GREEN LI/HEP BLD/PLAS PLASMA ONCE [facility] Feb 19, 2024 12:00 AM Laboratory - Chemi stry Order CBC BLOOD Pre-Operative [facility] Feb 19, 2024 12:00 AM Laboratory - Chemi stry Order VITAMIN D, 25-HYDROXY GOLD/RED SST SERUM [facility] Feb 19, 2024 12:00 AM Laboratory - Chemi stry Order CHOLESTEROL PANEL (PB) GREEN LI/HEP BLD/PLAS PLASMA SP ONCE [facility] Feb 19, 2024 12:00 AM Laboratory - Chemi stry Order HEPATIC FUNCTION PROFILE (PB) GREEN LI/HEP BLD/PLAS PLASMA [facility] Feb 19, 2024 12:00 AM Laboratory - Chemi stry Order URINE ALBUMIN PROFILE-ih (PB) URINE,RANDOM [facility] Feb 19, 2024 12:00 AM Laboratory - Chemi stry Order FOLATE (PB) GOLD/RED SST SERUM [facility] Feb 19, 2024 12:00 AM Laboratory - Chemi stry Order TSH (MA-PB) GOLD/RED SST SERUM SP [facility] Feb 19, 2024 12:00 AM Laboratory - Chemi stry Order MAGNESIUM GREEN LI/HEP BLD/PLAS PLASMA SP [facility] Feb 19, 2024 12:00 AM Laboratory - Chemi stry Order APTT BLOOD PLASMA SP [facility] Feb 19, 2024 12:00 AM Laboratory - Chemi stry Order PRO TIME (PB) BLOOD PLASMA [facility] Social History: Smoking Status (Most current) and Tobacco Use (All prior to encounter date) This section includes the most current, and the historical, smoking and tobacco- related health factors from the [place] facility where the Encounter took place. Current Smoking Status This section includes the most current smoking, or tobacco-related health factor, from the [place] facility where the Encounter took place. Date/Time Current Smoking Status Comment Facil ity Apr 06, 2023 01:30 PM VA-TOBACCO NEVER USED [facility] Tobacco Use History This section includes a history of the smoking, or tobacco-related health factors, that were collected on or before the date of the Encounter. The data comes from the [place] facility where the Encounter took place. Date/Time Smoking Status/Tobacco Use Comment F acility Feb 01, 2021 09:00 AM VA-TOBACCO FORMER USER Sev erity= MINIMAL [facility] Feb 01, 2021 09:00 AM VA-TOBACCO QUIT 15 YRS OR MORE Severity= MINIMAL [facility] Jun 28, 2018 02:40 PM VA-TOBACCO FORMER USER [facility] Jun 28, 2018 02:40 PM VA-TOBACCO QUIT 15 YRS OR MORE [facility] Jan 25, 2018 02:35 PM QUIT TOBACCO >7 YEARS AGO [facility] Jan 06, 2018 08:04 AM QUIT TOBACCO >7 YEARS AGO [facility] Nov 02, 2017 11:08 AM QUIT TOBACCO >7 YEARS AGO [facility] Advance Directives: All historical and current Section Date Range: From patient's date of to the date document was created. This section includes ALL of a patient's completed or amended VA Advance and Rescinded Directives. The entries below indicate that a directive exists for the patient, but an actual copy is not included with this document. The data comes from all [place] facilities. Date Advance Directives Provider Source Mar 13, 2020 ADVANCE DIRECTIVE [facility]IU [facility] Mar 13, 2020 CLINICAL WARNING DUFFBIBI JENNINGS F [facility] Aug 19, 2010 ADVANCE DIRECTIVE MOREJESUS V [facility] Aug 19, 2010 ADVANCE DIRECTIVE DISCUSSION FERNANDOALISTAIR APONTEYA [facility] Encounter Notes: All associated encounter notes This section contains the clinical notes associated to the Encounter. Date/Time Encounter Note(s) Provider Source Feb 19, 2024 11:15 AM TELEHEALTH NOTE: LOCAL TITLE: VVC [facility] VIDEO CONNECT/VIDEO TO HOME STANDARD TITLE: TELEHEALTH NOTE DATE OF NOTE: FEB 19, 2024@11:15 ENTRY DATE: FEB 19, 2024@11:15:07 AUTHOR: RAIZA BREAUX COSIGNER: URGENCY: STATUS: COMPLETED VVC VA VIDEO CONNECT/VIDEO TO HOME Has ADDENDA VA Video Connect (VVC)/Video to home template v1.5 Visit conducted by synchronous telehealth. Location/emergency number confirmed. Environment surveyed and all participants identified. Virtual conference room locked. VVC/Video to home appointment information: The following items were reviewed: - The nature of telehealth, its benefits, and risks. - Confidentiality and its limits. - The importance of having a confidential location for the service. - The emergency plan. - The appointment should be treated like an in person appointment (no smoking or driving during session, showing up fully dressed, etc.) *The Virtual Medical Room was locked for this encounter. *A survey of the environment was conducted and it is appropriate to conduct a VVC appointment. *Confirmed 's Non-VA location for this appointment: [facility] [address] [place], [place] [address] Address and phone number verified with Ronald. Address: Phone: Emergency Contact: Name: Arleth daughter in law Phone: Others were present at this appointment(caregiver, family member, etc.) Details: Arleth [phone] *Ronald was notified of right to decline Telehealth services and eligibility for other options. consented to be seen via VVC. EMERGENCY PLAN In the event of an emergency, the Ronald or family will call emergency services, if capable. The Teleprovider will remain in the virtual medical room until emergency response arrives and handoff to emergency services is complete. If is unable to make emergency call, the Teleprovider is to call the national E911 service at [phone] and ask to be connected to emergency services for the [facility] location. [facility] Crisis Line: Dial 988 then press 1, or text [phone] Office of Connected Care Helpdesk ([facility]): [phone] or [phone] Verified Provider's location and contact information for this appointment: [facility] [address] [place] [address] x is presenting to the clinic today for his/her Telehealth appointment as scheduled. Ronald was assured that the Telehealth visit is a private, confidential clinical encounter and will not be recorded. The Telehealth process, procedures and expectations were explained to the patient, allowing Ronald time to voice any concerns. Ronald voiced understanding and consented to the Clinic visit. The visit proceeded without difficulty. DATE & TIME:Feb@11:17 CHIEF COMPLAINT: acute visit, new patient transformed to me from Dr Fay HISTORY OF PRESENT ILLNESS: seen in ED for fall needs 3rd item, shower seat stari lift installed just recently, will be using bathroom upstairs now, so needs hand railing to side s of toilet for assitance in gettin david toilet in the upstaris bathroom, will notify [facility] staff ot place order went into rehab [facility] for 30 days, on eliquis, is on 81 mg aspirin mentally acting well at baseline and now approved for skilled nurse 1x week and PT 2x week complains of bilateral hip pain, and difficulty walking even after recent fall and hospitaliaztion 12/2023 for subdural hematoma eliquis for atrial fibrillation, hx of atrial fib in past and then resolved after cardiac procedure, recently came back 2022, has a loop recorder now, [place] facility took him off bp medication carvedilol bc of low BP, and today 134/80 apixiban 2.5 mg bid fish oil 73510 daily omeprazole 20 mg bid vit 2000IU daily tamsulosin 0.4mg bid duloxetine 40 mg daily memantine 5mg bid magnesium 400mg bid fenasteride 5mg daily aspirin ec 81 mg daily buspirone 10mg tqablet, take 1/2 tablet bid atorvastatin 80mg daily midodrine 2.5mg once daily hs calcium polycarbofil 625mg daily insulin novolog 12 units tid w q meal lantus glargine 25 units hs ozempic 5mg once weekly -start hold when in [place]hab, prescribed by endocrine sees endocrinology, appt coming up mar or apr, 2024, needs new consult, 10/2023 tylenol 325 mg as needed try for hip pain dicofenac 1% topical gel qid as needed - try for bilateral hips, uses it for feet neuropathy cyclobenzaprine 5 mg tid as needed, currently usin git 3x week the most not taking tylenol for pain lady at [facility], rosa maybe, was helping and turned in papers, filling out papers for caring for , requesting to be paid PAST MEDICAL HISTORY: 1) HTN - Hypertension 2) HLD - Hyperlipidemia 3) Benign prostatic hypertrophy with outflow obstruction (SNOMED CT [id number]) 4) HL - Hearing loss 5) Barretts esophagus 6) Degenerative joint disease involving multiple joints 7) History of colonic polyp 8) CAD - Coronary artery disease 9) History of coronary artery bypass grafting 10) AF - Atrial fibrillation 11) BPH - benign prostatic hyperplasia 12) CHF - Congestive heart failure 13) Depression 14) Diabetes mellitus 15) Benign hypertension 16) Hyperlipidemia 17) Coronary arteriosclerosis 18) CHF - Congestive heart failure 19) Ureterolithiasis 20) Tinnitus 21) Renal Impairment (SCT [id number]) 22) Adjustment disorder 23) Syncope 24) VT - Ventricular tachycardia 25) Peripheral neuropathy 26) Major depressive disorder 27) Exposure to potentially hazardous chemical 28) Exposure to potentially hazardous substance 29) Obstructive Sleep Apnea of Adult (SCT [id number]) 30) Small vessel cerebrovascular disease 31) Transient cerebral ischemia 32) Chronic neck pain 33) Headache 34) Seizure disorder 35) Dementia 36) subdural hematoma s/p fall SOCIAL HISTORY: 09/08/2014 lives at home , has daughterin law Arleth and her live with , and she takes care of him, no w for 7 yrs, Grandchildren 2 live w him as well pets: none Tobacco: none Alcohol: none Hobbies: tv, lottery weekly, grandchildren Allergies: LISINOPRIL MEDIACTIONS: Active Outpatient Medications (including Supplies): Active Outpatient Medications Status 1) ACETAMINOPHEN 500MG TAB TAKE TWO TABLETS BY MOUTH ACTIVE FOUR TIMES A DAY NEEDED FOR PAIN CAUTION: DO NOT EXCEED 4000MG PER DAY ACETAMINOPHEN (APAP) FROM ALL MEDS. 2) APIXABAN 5MG TAB TAKE ONE-HALF TABLET BY MOUTH TWICE ACTIVE (S) A DAY FOR ATRIAL FIBRILLATION. THIS TABLET IS TO BE CUT IN HALF FOR YOUR DOSE. 3) ATORVASTATIN CALCIUM 80MG TAB TAKE ONE TABLET BY ACTIVE MOUTH EVERY EVENING TO LOWER CHOLESTEROL (REPORT ANY MUSCLE PAIN OR WEAKNESS) 4) BRIEF,PROTECTIVE SUPER ABS LG ATTENDS USE 1 BRIEF TO ACTIVE AFFECTED AREA(S) THREE TIMES A DAY NEEDED FOR INCONTINENCE 5) BUSPIRONE HCL 10MG TAB TAKE ONE-HALF TABLET BY MOUTH ACTIVE THREE TIMES A DAY FOR ANXIETY. DO NOT TAKE WITH GRAPEFRUIT JUICE. 6) CALCIUM POLYCARBOPHIL 625MG TAB TAKE TWO TABLETS BY ACTIVE MOUTH ONCE A DAY FOR FIBER 7) CARVEDILOL 3.125MG TAB TAKE ONE TABLET BY MOUTH TWICE ACTIVE A DAY . TAKE 1 TABLET BY MOUTH IN THE MORNING AND TAKE 1 TABLET IN THE EVENING. TAKE WITH FOOD. 8) CHOLECALCIF 50MCG (D3-2,000UNIT) TAB TAKE ONE TABLET ACTIVE BY MOUTH ONCE A DAY FOR VITAMIN D DEFICIENCY. 9) CYCLOBENZAPRINE HCL 5MG TAB TAKE ONE TABLET BY MOUTH ACTIVE THREE TIMES A DAY FOR MUSCLE SPASM MAY CAUSE DROWSINESS. DO NOT DRINK ALCOHOL WHILE TAKING THIS MEDICATION. 10) DICLOFENAC NA 1% TOP GEL APPLY 4 GM TO AFFECTED ACTIVE AREA(S) FOUR TIMES A DAY NEEDED FOR OSTEOARTHRITIS DO NOT EXCEED MORE THAN 16 GRAMS DAILY TO ANY LOWER EXTREMITY JOINT. NOT MORE THAN 8 GRAMS DAILY TO ANY UPPER EXTREMITY JOINT. MAX 32GM/DAY OVER ALL JOINTS. (MEASURE DOSE WITH RULER ATTACHED INSIDE BOX) 11) DULOXETINE HCL 20MG EC CAP TAKE TWO CAPSULES BY MOUTH ACTIVE (S) ONCE A DAY FOR DEPRESSION AND ANXIETY DO NOT ABRUPTLY DISCONTINUE MEDICATION. 12) FINASTERIDE 5MG TAB TAKE ONE TABLET BY MOUTH ONCE A ACTIVE DAY FOR PROSTATE. SWALLOW WHOLE, DO NOT CRUSH, SPLIT, OR CHEW. 13) FLUTICAS 500/SALMETEROL 50 INHL DISK 60 INHALE 1 ACTIVE INHALATION ORAL INHALATION TWICE A DAY FOR COPD (OPEN DISKUS; CLICK ONLY ONCE; MAY INHALE TWICE TO COMPLETE DOSE; CLOSE WHEN FINISHED) RINSE MOUTH AND SPIT AFTER EACH USE. 14) FUROSEMIDE 40MG TAB TAKE ONE TABLET BY MOUTH EVERY ACTIVE MORNING NEEDED FOR FLUID RETENTION (EDEMA) 15) GLUCOSE SENSOR RezeeYLE DAYNE 2 USE SENSOR EVERY ACTIVE 2 WEEKS . CHECK BLOOD GLUCOSE 4 TIMES DAILY AND NEEDED. TO REPLACE SENSOR FOR ANY REASON OR FOR TECHNICAL HELP PLEASE CALL [employer] DESK: -SPECIFIC PHONE NUMBER: ([phone]). 16) INSULIN SYRINGE 0.5ML 30G 12MM USE 1 SYRINGE UNDER ACTIVE THE SKIN EVERY MORNING AND EVENING FOR INSULIN INJECTION 17) INSULIN,ASPART(EQV-NOVLG)100UN /ML FLXPEN INJECT ACTIVE SLIDING SCALE UNDER THE SKIN THREE TIMES A DAY BEFORE MEALS FOR DIABETES FOR BLOOD SUGAR CONTROL. ADMINISTER 10 MINUTES BEFORE FOOD DIRECTED. REFRIGERATE UN-OPENED PENS. DISCARD CARTRIDGE 28 DAYS AFTER OPENING. 18) INSULIN,GLARGINE-YFGN 100UNIT/ML INJ INJECT 20 UNITS ACTIVE (S) UNDER THE SKIN AT BEDTIME FOR DIABETES (AT SAME TIME EACH DAY) - (DISCARD ANY UNUSED PORTION 28 DAYS AFTER OPENING) 19) LIDOCAINE 5% PATCH APPLY 1 PATCH TO SKIN SITE ONCE A ACTIVE DAY FOR LOCAL ANESTHESIA APPLY PATCH AND PRESS FIRMLY FOR 10-15 SECONDS. KEEP ON FOR 12 HOURS THEN REMOVE PATCH FOR 12 HOURS. 20) MAGNESIUM OXIDE 400MG TAB TAKE ONE TABLET BY MOUTH ACTIVE TWICE A DAY 21) MEMANTINE HCL 5MG TAB TAKE ONE TABLET BY MOUTH TWICE ACTIVE A DAY FOR DEMENTIA (MORNING AND 2:00 PM) 22) MIDODRINE HCL 10MG TAB TAKE ONE TABLET BY MOUTH THREE ACTIVE TIMES A DAY NEEDED FOR LOW BLOOD PRESSURE 23) NEEDLE,PEN 31G,5MM USE 1 NEEDLE UNDER THE SKIN THREE ACTIVE TIMES A DAY 24) OMEPRAZOLE 20MG EC CAP TAKE ONE CAPSULE BY MOUTH ACTIVE TWICE A DAY FOR GASTROESOPHAGEAL REFLUX DISEASE TAKE 30 MINUTES PRIOR TO FOOD. 25) POTASSIUM CL 20MEQ SA TAB (DISPERSIBLE) TAKE ONE ACTIVE TABLET BY MOUTH ONCE A DAY NEEDED FOR POTASSIUM SUPPLEMENTATION TAKE WITH FOOD 26) SEMAGLUTIDE 0.25MG/0.375ML INJ PEN 3ML INJECT 0.5MG ACTIVE (S) UNDER THE SKIN EVERY WEEK FOR DIABETES 27) SODIUM FLUORIDE 1.1% TOOTHPASTE USE DIRECTED BY ACTIVE MOUTH ONCE A DAY FOR DENTAL CARE TOOTHPASTE (DO NOT SWALLOW) 28) TAMSULOSIN HCL 0.4MG CAP TAKE ONE CAPSULE BY MOUTH ACTIVE TWICE A DAY APPROXIMATELY 30 MINUTES AFTER THE SAME MEAL EACH DAY (FOR PROSTATE) 29) UNDERPAD,BED LARGE EXTRA ABSORBENT USE/APPLY 1 PAD TO ACTIVE AFFECTED AREA(S) TWICE DAILY NEEDED FOR INCONTINENCE (EXTERNAL USE ONLY) Active Non-VA Medications Status 1) Non-VA ACETAMINOPHEN 500MG TAB 500 MG BY MOUTH FOUR ACTIVE TIMES A DAY 2) Non-VA ASPIRIN 81MG EC TAB 81MG BY MOUTH ACTIVE 31 Total Medications REVIEW OF SYSTEMS: Review of Systems Systemic: Denies fatique, fever, chills, or weight loss CV: Denies chest pain, palpitations Pulm: Denies hemoptysis, wheezing GI: Denies constipation, bloody stools. Musculoskeletal: Denies swelling Neuro: Denies slurred speech Skin: Denies abnormal lesions, denies any new rashes PSYCH: Denies SI/HI PHYSICAL ASSESSMENT: VITAL SIGNS Pulse: 88 (08/12/2023 11:12) Blood Pressure: 130/80 (08/12/2023 11:12) Respiratory Rate: 20 (08/12/2023 11:12) Temperature: 96 F [35.6 C] (08/12/2023 11:12) Weight: 201.1 lb [91.22 kg] (08/12/2023 11:12) Height: 69 in [175.3 cm] (07/01/2023 14:30) Pain: 5 (08/12/2023 11:12) GENERAL: Appears in no acute distress. HEENT: Conjunctiva are clear without exudate or gross hemorrhage. Sclera nonicteric. EOM are intact. NECK: appearance is normal RESPIRATORY: Nonlabored respirations, no conversational dyspnea MUSCULOSKELETAL: uses grab bar and gets up without assistance from Crystal and then uses walker moving upper extremiteis without difficulty, did not visualize using Lower extremities SKIN: Appropriate color for ethnicity. NEUROLOGICAL: The is alert and oriented x3 without distress. Gait is at baseline uses walker PSYCHOLOGICAL: Appropriate mood and affect. No suicidal or homicidal ideation. A/P: ASSESSMENT and PLAN 1) HTN - Hypertension 2) HLD - Hyperlipidemia 3) Benign prostatic hypertrophy with outflow obstruction (SNOMED CT [id number]) 4) HL - Hearing loss 5) Barretts esophagus 6) Degenerative joint disease involving multiple joints 7) History of colonic polyp 8) CAD - Coronary artery disease 9) History of coronary artery bypass grafting 10) AF - Atrial fibrillation 11) BPH - benign prostatic hyperplasia 12) CHF - Congestive heart failure 13) Depression 14) Diabetes mellitus 15) Benign hypertension 16) Hyperlipidemia 17) Coronary arteriosclerosis 18) CHF - Congestive heart failure 19) Ureterolithiasis 20) Tinnitus 21) Renal Impairment (SCT [id number]) 22) Adjustment disorder 23) Syncope 24) VT - Ventricular tachycardia 25) Peripheral neuropathy 26) Major depressive disorder 27) Exposure to potentially hazardous chemical 28) Exposure to potentially hazardous substance 29) Obstructive Sleep Apnea of Adult (SCT [id number]) 30) Small vessel cerebrovascular disease 31) Transient cerebral ischemia 32) Chronic neck pain 33) Headache 34) Seizure disorder 35) Dementia 36) subdural hematoma s/p fall - back at home now, arleth daughter in law takign car of him Discussion as above needs labs want family member to be paid for helping , needs case mix tool to be done by nurse so consult can be placed medication list reviewed above, has plenty Crystla said , just placed pharmacy ordered in physical therapy 'has HH RN coming to home needs to see endocrine, appt mar opr april, consult wants grab bars for toilet seat, see above, will request nurse to order please sees cardiology, will need new consult Health Maintenance: Discussed preventative health to include diet and exercise including immunizations. Stable. Discussed medications with patient; med rec completed. Continue current regimen as prescribed by PCP and specialists. RTC as needed if developing any new or worsening symptoms. Please notify PACT with medication changes or for orders coordination as needed if seen by a specialist in the future. Discussed with patient that in the event of community imaging / testing being ordered in the future, once the imaging / testing has been completed, please notify PACT of completion at outside facility if not called with results within 1 week by a [facility]CT member; this is due to intermittent lapses in notification of imaging completion within CPRS. -Follow-up with me every for annual labs and annual exam -Follow-up with me as needed. All questions answered; agrees to plan of care. Follow up as listed above, annually, and as needed. Keep all appointments. Medications Reconciled. approximately 40 minutes on vvc /carmelo/ RAIZA BREAUX MD Signed: 02/19/2024 12:21 Receipt Acknowledged By: 02/29/2024 08:43 /carmelo/ COOPER ROPER, MANJIT CRANE [facility] 02/19/2024 ADDENDUM STATUS: COMPLETED PSP-'s Scheduled Provider [address] [address] [place] [phone] AUTH DATES: 09/08/23 TO 03/29/24 please have crystal call for cardiology appt before consult runs out /ava BREAUX MD Signed: 02/19/2024 12:38 02/23/2024 ADDENDUM STATUS: COMPLETED Called [facility] and received voicemail. Message left that was needing RFS sent in prior to his upcoming appt. /carmelo/ LAURA PERDUE LPN Signed: 02/23/2024 10:58 RAIZA BREAUX [facility] [place] [facility]
--- OUTSIDE RECORDS SUMMARY | 2024-06-02 09:15 | XMS_ITS | Encounter Summary ---
Author Name [facility] Address [address] [place] [address] Care Team Providers Care Stator Connector Name Role Phone PARMINDERROLANDO ANDRADEE Primary Care [...] PART B Aug 07, 2008 PART B [id number] MIMA DOMINGUEZ ERT PATIENT MEDICARE (WNR) MEDICARE (M) PART B Aug 07, 2008 PART B [id number] ALBERTOMIMA ERT PATIENT MEDICARE (WNR) MEDICARE (M) PART A Sep 06, 2005 PART A [id number] ALBERTOMIMA ERT PATIENT MEDICARE (WNR) MEDICARE (M) PART A Sep 06, 2005 PART A [id number] [phone] ALBERTOMIMA ERT PATIENT MEDICARE PART D (WNR) MEDICARE (M) PART D Apr 09, 2010 PART D [id number] [phone] MIMA DOMINGUEZ ERT PATIENT [facility] PLAN N PLAN N July 08, 2019 PLANN [id number] [phone] MIMA DOMINGUEZ ERT PATIENT Selected Encounter This section includes the information on record at [place] for the Encounter. Date/Time Encounter Type Encounter Description Reason Pro vider Source Jun 02, 2024 03:15 PM Outpatient Encounter COMMUNITY CARE CONSULT IHE Encounter Template Text not used by [place] Plan of Treatment: Future Appointments (+ 6 months) and Future Tests (+/- 45 days) The Plan of Treatment section includes future care activities for the patient from all [place] treatmentfacilities. This section includes future appointments and future orders which are active, pending or scheduled. Future Appointments This section includes appointments that were scheduled to occur 6 months from the date of the Encounter, up to a maximum of 20 appointments. The data comes from all [place] treatment facilities. Appointment Date/Time Appointment Type Appointme nt Facility Name July 12, 2024 01:30 PM AMBULATORY - MEDICINE [facility] July 22, 2024 03:00 PM AMBULATORY - NONE [facility] Aug 18, 2024 10:45 AM AMBULATORY - NONE [facility] Sep 16, 2024 03:30 PM AMBULATORY - MEDICINE [facility] Sep 27, 2024 03:30 PM AMBULATORY - MEDICINE [facility] Sep 29, 2024 08:00 AM AMBULATORY - MEDICINE [facility] Sep 29, 2024 02:15 PM AMBULATORY - MEDICINE [facility] Oct 03, 2024 11:28 AM AMBULATORY - NONE [facility] Nov 30, 2024 03:00 PM AMBULATORY - MEDICINE [facility] Nov 30, 2024 03:01 PM AMBULATORY - MEDICINE [facility] Advance Directives: All historical and current Section Date Range: From patient's date of to the date document was created. This section includes ALL of a patient's completed or amended [place] Advance and Rescinded Directives. The entries below indicate that a directive exists for the patient, but an actual copy is not included with this document. The data comes from all [place] facilities. Date Advance Directives Provider Source Mar 13, 2020 ADVANCE DIRECTIVE BIBI DUFF [facility] Mar 13, 2020 CLINICAL WARNING BIBI DUFF [facility] Aug 19, 2010 ADVANCE DIRECTIVE JESUS AGUERO [facility] Aug 19, 2010 ADVANCE DIRECTIVE DISCUSSION ABRAHAM BENAVIDES [facility] Encounter Notes: All associated encounter notes This section contains the clinical notes associated to the Encounter. Date/Time Encounter Note(s) Provider Source Apr 13, 2024 03:56 PM NONVA CONSULT: LOCAL TITLE: COMMUNITY CARE-CONSULT RESULT NOTE PB STANDARD TITLE: NONVA CONSULT DATE OF NOTE: APR 13, 2024@15:56 ENTRY DATE: APR 29, 2024@15:56:17 AUTHOR: MARTY VERA EXP COSIGNER: URGENCY: STATUS: COMPLETED Community provider/Non-VA documentation associated with this consult has been previously incorporated into the medical record and is currently linked to the following progress note in CPRS: Note Title- COMMUNITY CARE-REQUEST FOR SERVICES Date of Note- 04/29/24 Author- Marty Vera Consult Number- [id number] Community Care Consult: COMMUNITY CARE-Endocrinology Consult No: [id number] Date sent to scanning: Apr /carmelo/ MARTY VERA Signed: 04/29/2024 15:57 MARTY VERA [facility]
--- OUTSIDE RECORDS SUMMARY | 2024-08-16 03:09 | XMS_ITS | Encounter Summary ---
Author Name [facility] Organization [facility] Address [address] [place] [address] Care Team Providers Care Senior Software Engineer Analytics Name Role Phone PARMINDERROLANDO ANDRADEE Primary Care [...] PART B Aug 07, 2008 PART B [id number] MIMA DOMINGUEZ ERT PATIENT MEDICARE (WNR) MEDICARE (M) PART B Aug 07, 2008 PART B [id number] [phone] ALBERTOMIMA ERT PATIENT MEDICARE (WNR) MEDICARE (M) PART A Sep 06, 2005 PART A [id number] ALBERTOMIMA ERT PATIENT MEDICARE (WNR) MEDICARE (M) PART A Sep 06, 2005 PART A [id number] ALBERTOMIMA ERT PATIENT MEDICARE PART D (WNR) MEDICARE (M) PART D Apr 09, 2010 PART D [id number] MIMA DOMINGUEZ ERT PATIENT [employer]UAL OF [facility] PLAN N PLAN N July 08, 2019 PLANN [id number] [phone] MIMA DOMINGUEZ ERT PATIENT Selected Encounter This section includes the information on record at [place] for the Encounter. Date/Time Encounter Type Encounter Description Reason Provider Source Aug 16, 2024 09:09 AM Outpatient Encounter ADMIN PAT ACTIVTIES (MASNONCT) CECILE DE Nilay Encounter Template Text not used by [place] Plan of Treatment: Future Appointments (+ 6 months) and Future Tests (+/- 45 days) The Plan of Treatment section includes future care activities for the patient from all [place] treatmentfacilities. This section includes future appointments and future orders which are active, pending or scheduled. Future Appointments This section includes appointments that were scheduled to occur 6 months from the date of the Encounter, up to a maximum of 20 appointments. The data comes from all [place] treatment facilities. Appointment Date/Time Appointment Type Appointme nt Facility Name Aug 18, 2024 10:45 AM [facility]ORY [facility] [facility] Sep 16, 2024 03:30 PM [facility] [place] [facility]IC[place] [facility] Sep 27, 2024 03:30 PM [facility] [place] [facility] [facility] Sep 29, 2024 08:00 AM AMBULATORY - MEDICINE [facility] Sep 29, 2024 02:15 PM AMBULATORY - MEDICINE [facility] Oct 03, 2024 11:28 AM AMBULATORY - NONE [facility] Nov 30, 2024 03:00 PM [facility] Nov 30, 2024 03:01 PM [facility] Dec 08, 2024 03:30 PM [facility] Jan 02, 2025 01:30 PM [facility] Jan 06, 2025 11:00 AM [facility] Feb 06, 2025 10:45 AM [facility] Feb 06, 2025 10:46 AM [facility] Feb 06, 2025 01:30 PM [facility] [place] [facility] [facility] Social History: Smoking Status (Most current) and Tobacco Use (All prior to encounter date) This section includes the most current, and the historical, smoking and tobacco- related health factors from the [place] facility where the Encounter took place. Current Smoking Status This section includes the most current smoking, or tobacco-related health factor, from the [place] facility where the Encounter took place. Date/Time Current Smoking Status Comment Hernando flores Apr 06, 2023 01:30 PM VA-TOBACCO NEVER USED [facility] Tobacco Use History This section includes a history of the smoking, or tobacco-related health factors, that were collected on or before the date of the Encounter. The data comes from the [place] facility where the Encounter took place. Date/Time Smoking Status/Tobacco Use Comment F acility Feb 01, 2021 09:00 AM VA-TOBACCO FORMER USER Sev erity= [facility] Feb 01, 2021 09:00 AM VA-TOBACCO QUIT 15 YRS OR MORE Severity= [facility] Jun 28, 2018 02:40 PM VA-TOBACCO FORMER USER [facility] Jun 28, 2018 02:40 PM VA-TOBACCO QUIT 15 YRS OR MORE [facility] Jan 25, 2018 02:35 PM QUIT TOBACCO >7 YEARS AGO [facility] Jan 06, 2018 08:04 AM QUIT TOBACCO >7 YEARS AGO [facility] Nov 02, 2017 11:08 AM QUIT TOBACCO >7 YEARS AGO [facility] Advance Directives: All historical and current Section Date Range: From patient's date of to the date document was created. This section includes ALL of a patient's completed or amended [place] Advance and Rescinded Directives. The entries below indicate that a directive exists for the patient, but an actual copy is not included with this document. The data comes from all [place] facilities. Date Advance Directives Provider Source Mar 13, 2020 ADVANCE DIRECTIVE BIBI DUFF FF [facility] Mar 13, 2020 CLINICAL WARNING BIBI DUFF F [facility] Aug 19, 2010 ADVANCE DIRECTIVE JESUS AGUERO V [facility] Aug 19, 2010 ADVANCE DIRECTIVE DISCUSSION ABRAHAM BENAVIDES [facility] Radiology Reports: +/- 30 days of the encounter Radiology Reports For cases when an order for radiology services may have been completed prior to the date of the Encounter, the report list includes the Radiology Reports that were completed up to 30 days before dateof the Encounter. For cases when an order for radiology services may have been completed after the date of the Encounter, the report list also includes the Radiology Reports that were completed up to30 days after date of the Encounter. The data comes from all [place] treatment facilities. Date/Time Radiology Report Provider Source Aug 18, 2024 11:12 AM WRIST,RIGHT,3 OR M ORE VIEWS: ESEQUIEL DOMINGUEZ [id number] [phone] Exm Date: AUG 18, 2024@11:12 Req Phys: RAIZA BREAUX Pat Loc: [facility] [place] PCP (Req'g L Img Loc: [facility] [place] Service: [place] [address] (Case [id number] COMPLETE) WRIST,RIGHT,3 OR MORE VIEWS (RAD Detailed) CPT:42663 Reason for Study: pain to right wrist Clinical History: went to ER for pain to wrist , hematoma and no trauma that he was aware of. Does have PTSD and bad dreams. ER record indicates no fracture but to repeat at [place] in one week if continues to have pain. Was given velcro wrist splint. Report Status: Verified Date Reported: AUG 18, 2024 Date Verified: AUG 18, 2024 Plant Science Professor E-Sig: Report: Right wrist 3 views. HISTORY: Pain to right wrist 3 views are obtained, hematoma and no trauma was aware of. ER record indicates no fracture or repeat PA and one week continue to have pain Study performed on 08/18/2024 at 11:13 AM No evidence of a fracture or dislocation. There are degenerative changes. No evidence of bony destruction. Plaque in the arteries. Impression: 1. No acute bony change 2. Degenerative arthritis Primary Interpreting Staff: CONCEPCION MARLOW, RADIOLOGIST (Plant Science Professor, no e-sig) /CONCEPCION Saucedo [facility] Encounter Notes: All associated encounter notes This section contains the clinical notes associated to the Encounter. 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 Narr. - Diabetes mellitus ([facility] [id number]) MACULAR DEGENERATION: Macular Degeneration Risk Factors Information: Reminder Term: VA-AMD RISK FACTORS Problem Diagnosis: 08/16/2024@09:09:39 I25.10 (ICD-10-CM) Atherosclerotic Heart Disease of [place] Coronary Artery without Angina Pectoris Date Entered: 03/13/2009; Date Last Modified: 04/06/2023 Status: ACTIVE; Priority: CHRONIC Prov. Narr. 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 Narr. - Ocular Hypertension,Bilateral Action: Patient has a future eye care appointment scheduled within the next 90 days. Date of Appointment: 09/29/24 @ PB /carmelo/ CECILE DE Telehealth Clinical Plodding Machine Operator Signed: 08/16/2024 09:10 CECILE DE [facility]
--- OUTSIDE RECORDS SUMMARY | 2024-11-22 09:15 | XMS_ITS | Encounter Summary ---
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 Railroad Signal Technician Name Role Phone PARMINDERROLANDO ANDRADEE Primary Care [...] PART B Aug 07, 2008 PART B [id number] MIMA DOMINGUEZ ERT PATIENT MEDICARE (WNR) MEDICARE (M) PART B Aug 07, 2008 PART B [id number] ALBERTOMIMA ERT PATIENT MEDICARE (WNR) MEDICARE (M) PART A Sep 06, 2005 PART A [id number] MIMA DOMINGUEZ ERT PATIENT MEDICARE (WNR) MEDICARE (M) PART A Sep 06, 2005 PART A [id number] ALBERTOMIMA ERT PATIENT MEDICARE PART D (WNR) MEDICARE (M) PART D Apr 09, 2010 PART D [id number] MIMA DOMINGUEZ ERT PATIENT [employer]UTUAL OF [facility] PLAN N PLAN N July 08, 2019 PLANN [id number] [phone] MIMA DOMINGUEZ ERT PATIENT Selected Encounter This section includes the information on record at [place] for the Encounter. Date/Time Encounter Type Encounter Description Reason Pro vider Source Nov 22, 2024 03:15 PM Outpatient Encounter OPTOMETRY IHE Encounter Template Text not used by [place] Plan of Treatment: Future Appointments (+ 6 months) and Future Tests (+/- 45 days) The Plan of Treatment section includes future care activities for the patient [facility] [place] [facility] This section includes future appointments and future orders which are active, pending or scheduled. Future Appointments This section includes appointments that were scheduled to occur 6 months from the date of the Encounter, up to a maximum of 20 appointments. The data comes from all [place] treatment facilities. Appointment Date/Time Appointment Type Appointme nt Facility Name Nov 30, 2024 03:00 PM AMBULATORY - MED[facility]INE [facility] Nov 30, 2024 03:01 PM AMBULATORY - MED[facility]INE [facility] Dec 08, 2024 03:30 PM AMBULATORY - MEDICINE [facility] Jan 02, 2025 01:30 PM AMBULATORY - MEDICINE [facility] Jan 06, 2025 11:00 AM AMBULATORY - MEDICINE [facility] Feb 06, 2025 10:45 AM AMBULATORY - MEDICINE [facility] Feb 06, 2025 10:46 AM AMBULATORY - MEDICINE [facility] Feb 06, 2025 01:30 PM AMBULATORY - MEDICINE [facility] Apr 03, 2025 02:30 PM AMBULATORY - MEDICINE [facility] KEESHA [facility] Active, Pending, and Scheduled Orders This section includes a listing of several types of active, pending, and scheduled orders, including clinic medications orders, diagnostic test orders, procedure orders and consult orders; where the start date of the order is 45 days before the date of the Encounter or 45 days after the date of theEncounter. The data comes from all [facility]. Test Date/Time Test Type Test Details Facility Name Nov 22, 2024 11:20 AM Consult Order [facility] [id number] Cons Edge Molder's Choice JESSICA GREEN [facility] Advance Directives: All historical and current Section Date Range: From patient's date of to the date document was created. This section includes ALL of a patient's completed or amended [place] Advance and Rescinded Directives. The entries below indicate that a directive exists for the patient, but an actual copy is not included with this document. The data comes from all [place] facilities. Date Advance Directives Provider Source Mar 13, 2020 ADVANCE DIRECTIVE BIBI DUFF FF [facility] Mar 13, 2020 CLINICAL WARNING BIBI DUFF F [facility] Aug 19, 2010 ADVANCE DIRECTIVE JESUS AGUERO [facility] Aug 19, 2010 ADVANCE DIRECTIVE DISCUSSION ABRAHAM BENAVIDES [facility]
--- OUTSIDE RECORDS SUMMARY | 2024-12-08 09:30 | XMS_ITS | Encounter Summary ---
Author Name [facility] [place] [facility] [place] Address [address] [place] [address] Care Team Providers Care Woods Manager Name Role Phone ROLANDO BREAUXE Primary Care Provider Unavailabl e Insurance Providers: [...] PART B Aug 07, 2008 PART B [id number] MIMA DOMINGUEZ ERT PATIENT MEDICARE (WNR) MEDICARE (M) PART B Aug 07, 2008 PART B [id number] [phone] ALBERTOMIMA ERT PATIENT MEDICARE (WNR) MEDICARE (M) PART A Sep 06, 2005 PART A [id number] ALBERTOMIMA ERT PATIENT MEDICARE (WNR) MEDICARE (M) PART A Sep 06, 2005 PART A [id number] [phone] ALBERTOMIMA ERT PATIENT MEDICARE PART D (WNR) MEDICARE (M) PART D Apr 09, 2010 PART D [id number] MIMA DOMINGUEZ ERT PATIENT [facility] OF [facility] PLAN N PLAN N July 08, 2019 PLANN [id number] [phone] MIMA DOMINGUEZ ERT PATIENT Selected Encounter This section includes the information on record at [place] for the Encounter. Date/Time Encounter Type Encounter Description Reason Provider Source Dec 08, 2024 03:30 PM OFFICE O/P EST MOD 30 MIN PRIMARY CARE/MEDICINE ICD-10-CM R19.09 Other intra-abdomin al and pelvic swelling, mass and lump RAIZA BREAUX Encounter Template Text not used by [place] Assessments - Encounter Diagnoses This section includes the primary and secondary diagnoses documented for the Encounter. 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 This section includes future appointments and future orders which are active, pending or scheduled. Future Appointments This section includes appointments that were scheduled to occur 6 months from the date of the Encounter, up to a maximum of 20 appointments. The data comes from all [place] treatment facilities. Appointment Date/Time Appointment Type Appointme nt Facility Name Jan 02, 2025 01:30 PM AMBULATORY - MEDICINE [facility] Jan 06, 2025 11:00 AM AMBULATORY - MEDICINE [facility] Feb 06, 2025 10:45 AM AMBULATORY - MEDICINE [facility] Feb 06, 2025 10:46 AM AMBULATORY - MEDICINE [facility] Feb 06, 2025 01:30 PM AMBULATORY - MEDICINE [facility] Apr 03, 2025 02:30 PM [facility]ORY - [facility]ICINE [facility] Jun 08, 2025 03:30 PM AMBULATORY - MEDICINE [facility] Active, Pending, and Scheduled Orders This section includes a listing of several types of active, pending, and scheduled orders, including clinic medications orders, diagnostic test orders, procedure orders and consult orders; where the start date of the order is 45 days before the date of the Encounter or 45 days after the date of theEncounter. The data comes from all [place] treatment facilities. Test Date/Time Test Type Test Details Facility Name Nov 22, 2024 11:20 AM Consult Order [facility] [id number] Cons Claims Associate's Choice JESSICA [facility] Social History: Smoking Status (Most current) and Tobacco Use (All prior to encounter date) This section includes the most current, and the historical, smoking and tobacco- related health factors from the [place] facility where the Encounter took place. Current Smoking Status This section includes the most current smoking, or tobacco-related health factor, from the [place] facility where the Encounter took place. Date/Time Current Smoking Status Comment Facil ity Apr 06, 2023 01:30 PM VA-TOBACCO NEVER USED [facility] Tobacco Use History This section includes a history of the smoking, or tobacco-related health factors, that were collected on or before the date of the Encounter. The data comes from the [place] facility where the Encounter took place. Date/Time Smoking Status/Tobacco Use Comment F acility Feb 01, 2021 09:00 AM VA-TOBACCO FORMER USER Sev erity= [facility] Feb 01, 2021 09:00 AM VA-TOBACCO QUIT [...] ALL of a patient's completed or amended [place] Advance and Rescinded Directives. The entries below indicate that a directive exists for the patient, but an actual copy is not included with this document. The data comes from all [place] facilities. Date Advance Directives Provider Source Mar 13, 2020 ADVANCE DIRECTIVE BIBI DUFF FF [facility] Mar 13, 2020 CLINICAL WARNING BIBI DUFF F [facility] Aug 19, 2010 ADVANCE DIRECTIVE MOREJESUS Jyothi [facility] Aug 19, 2010 ADVANCE DIRECTIVE DISCUSSION ABRAHAM BENAVIDES [facility] Encounter Notes: All associated encounter notes This section contains the clinical notes associated to the Encounter. Date/Time Encounter Note(s) Provider Source Dec 08, 2024 03:55 PM TELEHEALTH NOTE: LOCAL TITLE: C [facility] VIDEO CONNECT/VIDEO TO HOME STANDARD TITLE: TELEHEALTH NOTE DATE OF NOTE: DEC 08, 2024@15:55 ENTRY DATE: DEC 08, 2024@15:55:17 AUTHOR: RAIZA BREAUX COSIGNER: URGENCY: STATUS: COMPLETED VA Video Connect (VVC)/Video to home template v1.5 Visit conducted by synchronous telehealth. [place] Location/emergency number confirmed. Environment surveyed and all [...] *Confirmed 's Non-VA location for this appointment: [facility] [address] [place] [place] [address] Address and phone number verified with [place]. Address: Phone: Emergency Contact: Name: crystal daughter in law Phone: Others were present at this appointment(caregiver, family member, etc.) Details: *[place] was notified of right to decline Telehealth services and eligibility for other options. [place] consented to be seen via VVC. EMERGENCY PLAN In the event of an emergency, the or family will call emergency services, if capable. The Teleprovider will remain in the virtual medical room until emergency response arrives and handoff to emergency services is complete. If is unable to make emergency call, the Teleprovider is to call the national E911 service at [phone] and ask to be connected to emergency services for the 's location. [place] Crisis Line: Dial [phone] then press 1, or text [phone] Office of Connected Care Helpdesk (OCC): [phone] or [phone] Laterality (patient's right and/or left side) confirmed prior to intervention during video visit. Verified Provider's location and contact information for this appointment: [facility] [address] [place] [address] x Provider Assessment Date & Time:Dec@15:59 Chief Complaint: fu from ED visit Subjective: seen for abdominal pain finish meds as prescribed, saw gastro Dr pacheco , she will order more test need commode insert disposable hsad to speak to pat and kunal in law w addition of telephone REVIEW OF SYSTEMS: HEENT: RESPIRATORY: Shortness of breath CARDIOVASCULAR: No chest pain or palpitation. GI: No abdominal pain, nausea, vomiting or bowel changes. MUSCULOSKELETAL: SKIN: : PSYCH: Objective: Vital Signs: 96 F [35.6 C] (08/12/2023 11:12) 88 (08/12/2023 11:12) 20 (08/12/2023 11:12) 130/80 (08/12/2023 11:12) 5 (08/12/2023 11:12) 69 in [175.3 cm] (07/01/2023 14:30) 201.1 lb [91.22 kg] (08/12/2023 11:12) HEENT: NECK: CARDIAC: RESPIRATORY: GI: MUSCULOSKELETAL: No Problem EXTREMITITES: SKIN: NEUROLOGICAL: The [place] is alert and oriented times: x3 DEEP TENDON REFLEXES (DTR'S) uses walker at all times GAIT & STANCE: antalgic gaitchair, balance is poor, grasps on to , furniture or a support person or uses a , walking aid for A/P: ASSESSMENT and PLAN ED fu abdominal pain 11/21/2024 History discharged home with diverticulitis/pancreas mass Patient already saw GI at [facility], she has scheduled additional testing. Was supposed to take metronidazole and ciprofloxacin from ED, [id number] Arleth states that she told her to stop the antibiotic patient's diverticulitis has resolved as well. Had CT abdomen pelvis done in the ED that revealed a mass lesion in the pancreas, prostatomegaly, cardiomegaly,Patient was referred to GI saw her at [facility], is scheduled to have scoping including an MRCP per [id number]. 5) Barretts esophagus 7) History of colonic polyp Chronic atrial fibrillation, depression, hyperlipidemia, seizures versus syncope, BPH, diabetes, hypertension, CHF, coronary artery disease. requesting glucose sensors refill requesting bedside commode urine collection disposable inserts Requested for Arleth [id number] to keep me posted on anything else that they need or how it goes with [facility] GI she said she will. Today you Also had to use a telephone because during the video we lost connection because of bad cell service. I was able to continue speaking to both [id number] and patient. -Follow-up with me for annual exam and annual labs -Follow-up for 6-month labs -Follow-up with me as needed SUMMARY STATEMENT: Plan of care has been discussed with including expected therapeutic benefits and potential side effects of prescribed medication and treatments. verbalizes understanding and is in agreement with the plan of care. Patient was instructed to keep all scheduled appointments and contact hand scudder for any additional problems. /carmelo/ RAIZA BREAUX MD Signed: 12/08/2024 16:31 RAIZA BREAUX [facility]
--- OUTSIDE RECORDS SUMMARY | 2025-01-18 22:43 | XMS_ITS | Continuity of Care Document ---
Author Name [facility] Organization [facility] Care Team Providers Care Channel Cementer Insole Machine Name Role Phone [facility] Unavailable Unavailable Problems Combined list of problems from Department of Defense and Veterans Affairs facilities. It does not include entries that were removed or entered in error. Problem Status Onset Date Problem Type Date of Resolution Comments Source Adjustment disorder Active Condition [facility] AF - Atrial fibrillation Active Condition [facility] Barretts esophagus Active Condition A pr 2008 Entered By: ALISTAIR BENAVIDES Comment: s/p egd in 08/14,f/u advised in 2-3 yearsDec 27, 2010 Entered By: ALISTAIR BENAVIDES Comment: s/p EGD in 09/16,f/u advised in 3 years. [facility] Benign hypertension Active Condition [facility] Benign prostatic hypertrophy with outflow obstruction (SNOMED CT 156235536) Active Condition [facility] BPH - benign prostatic hyperplasia Active Condition [facility] CAD - Coronary artery disease Active Condition [facility] CHF - Congestive heart failure Active Condition [facility] Chronic neck pain Active Condition [facility] Closed traumatic subdural hemorrhage (SNOMED CT 709747987) Active Condition Dec 28, 2023 Entered By: RAIZA BREAUX Comment: sent to ED 12/26/2023 [facility] Coronary arteriosclerosis Active Condition [facility] Degenerative joint disease involving multiple joints Active Condition [facility] Dementia Active Condition [facility] Depression Active Condition [facility] Diabetes mellitus Active Condition [facility] Exposure to potentially hazardous chemical Active Condition [facility] Exposure to potentially hazardous substance Active Condition . [facility] Headache [facility] History of colonic polyp Active Condition [facility] History of coronary artery bypass grafting Active Condition Mar 19, 2009 Entered By: ALISTAIR BENAVIDES Comment: s/p MAZE procedure also done. [facility] HL - Hearing loss Active Condition [facility] HLD - Hyperlipidemia Active Condition [facility] HTN - Hypertension Active Condition [facility] Hyperlipidemia Active Condition [facility] Major depressive disorder Active Condition [facility] Mass of pancreas Active Condition [facility] Obstructive Sleep Apnea of Adult ([facility] [id number]) Active Condition Jun 18, 2023 Entered By: NATHALIE MANLEY RD Comment: Severe per Sleep Study 06/2023. [facility] Peripheral neuropathy Active Condition [facility] Renal Impairment ([facility] [id number]) Active Condition [facility] Seizure disorder Active Condition [facility] Small vessel cerebrovascular disease Active Condition July 30, 2023 Entered By: JOSEFINA CHAIDEZ Comment: ER CT head 07/30/2023 [facility] Syncope Active Condition Mar 20 Entered By: NATHALIE MANLEY RD Comment: vs. Seizures.July 23, 2020 Entered By: RAIZA BREAUX Comment: seen in ED 07/20/20 for acute confusion, NIH = 0, and elevated troponin, recommend cardiac stress testMay 2024 Entered By: RAIZA BREAUX Comment: hx atrial fibrillation, bradycardia, fall, 2024, sees cardiology [facility] Tinnitus Active Condition [facility] Transient cerebral ischemia Active Condition [facility] Ureterolithiasis Active Condition Mar 11, 2018 Entered By: NATHALIE MANLEY RD Comment: Stent placement for same. [facility] [place] - Ventricular tachycardia Active Condition Aug 27, 2020 Entered By: NATHALIE MANLEY RD Comment: 13 beat run, nonsustained on heart monitor July 2020....follow ed by Cardiology. [facility] Atrial Fibrillation Inactive Condition 03/08/2020 [facility] Marcelo's esophagus Inactive Condition 01/03/2021 [facility] Diabetes Mellitus without mention of Complication, type II or unspecified type, Inactive Condition 04/06/2023 [facility] Diabetes Mellitus,Non-Insuli n Inactive Condition 03/08/2020 [facility] Epidermal Cyst * (ICD-9-CM 706.2) Inactive Condition 04/06/2023 [facility] Hearing Loss, Sensorineural, Unspecified Inactive Condition 10/25/2018 [facility] Hernia, Umbilical Inactive Condition 04/06/2023 [facility] Impacted cerumen * (ICD-9-CM 380.4) Inactive Condition 04/06/2023 [facility] Neck Pain Inactive Condition 04/06/2023 [facility] Postsurgical Aortocoronary Bypass Status (ICD-9-CM V45.81) Inactive Condition 04/06/2023 [facility] s/p colonoscopy in 08/14,f/u advised in 5 years Inactive Condition 04/06/2023 Mar 17, 2013 Entered By: ALISTAIR BENAVIDES Comment: colonoscopy done 10/2012,f/u advised in 5 years.Mar 25, 2016 Entered By: ALISTAIR BENAVIDES Comment: s/p colonosocpy in 10/2015,f/u advised in 5 years [facility] s/p umbilical hernia repair in 01/2010. Inactive Condition 04/06/2023 [facility] Weight Gain Abnormal Inactive Condition 03/08/2020 [facility] Diagnosis: ICD-10-CM R19.09 Other intra-abdominal and pelvic swelling, mass and lump Active Diagnosis [facility] Diagnosis: ICD-10-CM Z74.1 Need for assistance with personal care Active Diagnosis [facility] Diagnosis: ICD-10-CM R55 Syncope and collapse Active Diagnosis [facility] Diagnosis: ICD-10-CM F33.0 Major depressive disorder, recurrent, mild Active Diagnosis [facility] Diagnosis: ICD-10-CM R54 Age-related physical debility Active Diagnosis [facility] Diagnosis: ICD-10-CM G47.33 Obstructive sleep apnea (adult) (pediatric) Active Diagnosis [facility] Diagnosis: ICD-10-CM F32.9 Major depressive disorder, single episode, unspecified Active Diagnosis [facility] Diagnosis: ICD-10-CM Z71.89 Other specified counseling Active Diagnosis [facility] Diagnosis: ICD-10-CM Z71.9 Counseling, unspecified Active Diagnosis [facility] Diagnosis: ICD-10-CM E11.40 Type 2 diabetes mellitus with diabetic neuropathy, unsp Active Diagnosis [facility] Diagnosis: ICD-10-CM F03.A18 Unspecified dementia, mild, with other behavioral disturb Active Diagnosis [facility] Diagnosis: ICD-10-CM I48.91 Unspecified atrial fibrillation Active Diagnosis [facility] Diagnosis: ICD-10-CM Z46.1 Encounter for fitting and adjustment of hearing aid Active Diagnosis [facility] Diagnosis: ICD-10-CM H90.3 Sensorineural hearing loss, bilateral Active Diagnosis [facility] Diagnosis: ICD-10-CM M15.9 Polyosteoarthritis, unspecified Active Diagnosis [facility] Diagnosis: ICD-10-CM F33.1 Major depressive disorder, recurrent, moderate Active Diagnosis [facility] Diagnosis: ICD-10-CM R51.9 Headache, unspecified Active Diagnosis [facility] Diagnosis: ICD-10-CM Z13.9 Encounter for screening, unspecified Active Diagnosis [facility] Diagnosis: ICD-10-CM Z13.5 Encounter for screening for eye and ear disorders Active Diagnosis [facility] Diagnosis: ICD-10-CM M54.2 Cervicalgia Active Diagnosis [facility] Medications Combined list of outpatient medications from Department of Defense and Veterans Affairs facilities.Medications provided include 1) outpatient medications from the last 15 months, and 2) patient-reported medications. Medication Details Route Status Indication(s) Patie nt Instructions Prescription Expires Prescription Number Last Dispense Date Ordering Provider Order Date Order Qty Source ACETAMINOPH EN 500MG TAB TAKE TWO TABLETS BY MOUTH FOUR TIMES A DAY NEEDED FOR PAIN CAUTION: DO NOT EXCEED 4000MG PER DAY ACETAMIN OPHEN (APAP) FROM ALL MEDS. ORAL 07/13/2024 [id number] 4 EMELYN MANLEY 2023 100 [facility] ACETAMINOPH EN 500MG TAB TAKE ONE TABLET BY MOUTH FOUR TIMES A DAY ORAL ACTIVE FERNANDOABRAHAM APONTE 2007 [facility] N APIXABAN 5MG TAB TAKE ONE-HALF TABLET BY MOUTH TWICE A DAY FOR ATRIAL FIBRILLA TION. THIS TABLET IS TO BE CUT IN HALF FOR YOUR DOSE. ORAL DISCONT INUED BY PROVIDE R 08/05/2024 [id number] 5 THOR VALERIO MD 2024 90 [facility] APIXABAN 5MG TAB TAKE ONE-HALF TABLET BY MOUTH TWICE A DAY FOR ATRIAL FIBRILLA TION. THIS TABLET IS TO BE CUT IN HALF FOR YOUR DOSE. ORAL DISCONT INUED 08/05/2024 [id number] 5 THOR VALERIO MD 2023 90 [facility] ASPIRIN 81MG TAB,EC TAKE ONE TABLET BY MOUTH ORAL ACTIVE CELSO TANG 2017 [facility] ATORVASTATI N CA 80MG TAB TAKE ONE TABLET BY MOUTH EVERY EVENING FOR HIGH CHOLESTE ROL ORAL ACTIVE 07/26/2025 [id number] 5 ROLANDO BREAUX 2024 90 [facility] ATORVASTATI N CA 80MG TAB TAKE ONE TABLET BY MOUTH EVERY EVENING TO LOWER CHOLESTE ROL (REPORT ANY MUSCLE PAIN OR WEAKNESS ) ORAL 04/06/2024 [id number] 4 EMELYN MANLEY 2023 90 [facility] BUSPIRONE HCL 10MG TAB TAKE ONE-HALF TABLET BY MOUTH THREE TIMES A DAY FOR ANXIETY. DO NOT TAKE WITH GRAPEFRU IT JUICE. ORAL ACTIVE 03/08/2025 [id number] 5 ELIESER LYLE [address] [facility] BUSPIRONE HCL 10MG TAB TAKE ONE-HALF TABLET BY MOUTH THREE TIMES A DAY FOR ANXIETY. DO NOT TAKE WITH GRAPEFRU IT JUICE. ORAL DISCONT INUED 02/24/2024 [id number] 4 EMELYN MANLEY [address] [facility] CALCIUM POLYCARBOPH [place] 625MG TAB TAKE ONE TABLET BY MOUTH ONCE A DAY FOR FIBER SUPPLEME NTATION ORAL ACTIVE 07/26/2025 [id number] 5 ROLANDO BREAUX [address] [facility] CALCIUM POLYCARBOPH [place] 625MG TAB TAKE TWO TABLETS BY MOUTH ONCE A DAY FOR FIBER ORAL 04/06/2024 [id number] 4 EMELYN MANLEY [address] [facility] CARVEDILOL 3.125MG TAB TAKE ONE TABLET BY MOUTH TWICE A DAY . TAKE 1 TABLET BY MOUTH IN THE MORNING AND TAKE 1 TABLET IN THE EVENING. TAKE WITH FOOD. ORAL 06/16/2024 [id number] 4 ME PLACIDO HAWK 2023 90 [facility] CHOLECALCIF ENZO 50MCG (2,000UNIT) TAB TAKE ONE TABLET BY MOUTH ONCE A DAY FOR VITAMIN D SUPPLEME NTATION ORAL ACTIVE 07/26/2025 [id number] 5 ROLANDO BREAUX [address] [facility] CHOLECALCIF ENZO 50MCG (2,000UNIT) TAB TAKE ONE TABLET BY MOUTH ONCE A DAY FOR VITAMIN D DEFICIEN CY. ORAL 04/06/2024 [id number] 4 EMELYN MANLEY [address] [facility] CIPROFLOXAC IN HCL 500MG TAB TAKE ONE TABLET BY MOUTH TWICE A DAY FOR 7 DAYS .TAKE 2 HOURS BEFORE DAIRY,MA GNESIUM, CALCIUM POLYCARB OPHIL, MULTI VITAMINS /IRON OR 6 HOURS AFTER. TAKE UNTIL GONE UNLESS OTHERWIS E DIRECTED . DO NOT SPLIT, CHEW, OR CRUSH ORAL 12/22/2024 [id number] 5 GLO PRECIADO 2024 14 [facility] CYCLOBENZAP RINE HCL 5MG TAB TAKE ONE TABLET BY MOUTH THREE TIMES A DAY NEEDED FOR MUSCLE SPASM MAY CAUSE DROWSINE SS. DO NOT DRINK ALCOHOL WHILE TAKING THIS MEDICATI ON. DO NOT USE REGULARL Y, ONLY NEEDED ORAL ACTIVE 07/26/2025 [id number] 5 ROLANDO BREAUX [address] [facility] CYCLOBENZAP RINE HCL 5MG TAB TAKE ONE TABLET BY MOUTH THREE TIMES A DAY FOR MUSCLE SPASM MAY CAUSE DROWSINE SS. DO NOT DRINK ALCOHOL WHILE TAKING THIS MEDICATI ON. ORAL DISCONT INUED (EDIT) 08/13/2024 [id number] YRN [facility] I[facility]EL G [address] [facility] DEXTROMETHO RPHAN HBR 10MG/GUAIFE NESIN 100MG/5ML (AF & SF) LIQUID TAKE 10 ML BY MOUTH FOUR TIMES A DAY NEEDED FOR COUGH/CO NGESTION (TAKE WITH 8 OUNCE GLASS OF WATER) ORAL ACTIVE 03/04/2025 [id number] 4 ROLANDO BREAUX 2023 240 [facility] DICLOFENAC NA 1% GEL,TOP APPLY 4 GM TO AFFECTED AREA(S) FOUR TIMES A DAY NEEDED FOR OSTEOART HRITIS DO NOT EXCEED MORE THAN 16 GRAMS DAILY TO ANY LOWER EXTREMIT Y JOINT. NOT MORE THAN 8 GRAMS DAILY TO ANY UPPER EXTREMIT Y JOINT. MAX 32GM/DAY OVER ALL JOINTS. (MEASURE DOSE WITH RULER ATTACHED INSIDE BOX) TOPICA L 08/13/2024 [id number] 5 YRN [facility] [address] [facility] DULOXETINE HCL 20MG CAP,EC TAKE TWO CAPSULES BY MOUTH ONCE A DAY FOR DEPRESSI ON AND ANXIETY DO NOT ABRUPTLY DISCONTI NUE MEDICATI ON. ORAL DISCONT INUED (EDIT) 10/26/2024 [id number] 5 ELIESER LYLE [address] [facility] DULOXETINE HCL 20MG CAP,EC TAKE TWO CAPSULES BY MOUTH ONCE A DAY FOR DEPRESSI ON AND ANXIETY DO NOT ABRUPTLY DISCONTI NUE MEDICATI ON. ORAL DISCONT INUED 05/05/2024 [id number] ELIESER LYLE N R 2023 180 [facility] DULOXETINE HCL 60MG CAP,EC TAKE ONE CAPSULE BY MOUTH ONCE A DAY FOR DEPRESSI ON AND ANXIETY DO NOT ABRUPTLY DISCONTI NUE MEDICATI ON. ORAL ACTIVE 09/17/2025 [id number] 5 ELIESER LYLE N R [address] [facility] EMPAGLIFLOZ IN 10MG TAB TAKE 1 TABLET BY MOUTH EVERY MORNING ORAL ACTIVE 09/20/2025 [id number] 5 ALBERT RA 2024 90 [facility] FINASTERIDE 5MG TAB TAKE ONE TABLET BY MOUTH ONCE A DAY FOR BENIGN PROSTATI C HYPERPLA MAYLIN SWALLOW WHOLE, DO NOT CRUSH, SPLIT, OR CHEW. ORAL ACTIVE 07/26/2025 [id number] 5 ROLANDO BREAUX [address] [facility] FINASTERIDE 5MG TAB TAKE ONE TABLET BY MOUTH ONCE A DAY FOR PROSTATE . SWALLOW WHOLE, DO NOT CRUSH, SPLIT, OR CHEW. ORAL 02/24/2024 [id number] 4 EMELYN MANLEY [address] [facility] FLUTICASONE 500MCG/SALM ETEROL 50MCG INHL,ORAL,D ISKUS,60 INHALE 1 INHALATI ON ORAL INHALATI ON TWICE A DAY FOR COPD (OPEN DISKUS; CLICK ONLY ONCE; MAY INHALE TWICE TO COMPLETE DOSE; CLOSE WHEN FINISHED ) RINSE MOUTH AND SPIT AFTER EACH USE. RESPIR ATORY (INHAL ATION) ACTIVE 09/28/2025 [id number] 5 ROLANDO BREAUX R [address] [facility] FLUTICASONE 500MCG/SALM ETEROL 50MCG INHL,ORAL,D ISKUS,60 INHALE 1 INHALATI ON ORAL INHALATI ON TWICE A DAY FOR COPD (OPEN DISKUS; CLICK ONLY ONCE; MAY INHALE TWICE TO COMPLETE DOSE; CLOSE WHEN FINISHED ) RINSE MOUTH AND SPIT AFTER EACH USE. RESPIR ATORY (INHAL ATION) DISCONT INUED 08/20/2024 [id number] 5 YRN [facility] G 2023 3 [facility] FUROSEMIDE 40MG TAB TAKE ONE TABLET BY MOUTH EVERY MORNING NEEDED FOR FLUID RETENTIO N (EDEMA) ORAL ACTIVE 07/27/2025 [id number] 5 ROLANDO BREAUX [address] [facility] FUROSEMIDE 40MG TAB TAKE ONE TABLET BY MOUTH EVERY MORNING NEEDED FOR FLUID RETENTIO N (EDEMA) ORAL 04/28/2024 [id number] 4 EMELYN MANLEY 2023 90 [facility] INSULIN SYRINGE 0.5ML 30G 12MM USE 1 SYRINGE UNDER THE SKIN EVERY MORNING AND EVENING FOR INSULIN INJECTIO N SUBCUT ANEOUS 04/06/2024 [id number] 4 EMELYN MANLEY 2023 200 [facility] INSULIN,ASP ART,HUMAN (EQV-NOVOLO G) 100 UNIT/ML,FLE XPEN,3ML INJECT 20 UNITS UNDER THE SKIN THREE TIMES A DAY BEFORE MEALS NEEDED FOR DIABETES . ADMINIST ER 10 MINUTES BEFORE FOOD DIRECTED . REFRIGER ATE UN-OPENE D PENS. DISCARD CARTRIDG E 28 DAYS AFTER OPENING. SUBCUT ANEOUS ACTIVE 09/10/2025 [id number] 5 ROLANDO BREAUX 2024 15 [facility] INSULIN,ASP ART,HUMAN (EQV-NOVOLO G) 100 UNIT/ML,FLE XPEN,3ML INJECT SLIDING SCALE UNDER THE SKIN THREE TIMES A DAY BEFORE MEALS FOR DIABETES FOR BLOOD SUGAR CONTROL. ADMINIST ER 10 MINUTES BEFORE FOOD DIRECTED . REFRIGER ATE UN-OPENE D PENS. DISCARD CARTRIDG E 28 DAYS AFTER OPENING. SUBCUT ANEOUS DISCONT INUED (EDIT) 07/10/2025 [id number] 5 ROLANDO BREAUX 2024 15 [facility] INSULIN,ASP ART,HUMAN (EQV-NOVOLO G) 100 UNIT/ML,FLE XPEN,3ML INJECT SLIDING SCALE UNDER THE SKIN THREE TIMES A DAY BEFORE MEALS FOR DIABETES FOR BLOOD SUGAR CONTROL. ADMINIST ER 10 MINUTES BEFORE FOOD DIRECTED . REFRIGER ATE UN-OPENE D PENS. DISCARD CARTRIDG E 28 DAYS AFTER OPENING. SUBCUT ANEOUS 05/26/2024 [id number] 4 EMELYN MANLEY [address] [facility] INSULIN,GLA RGINE,HUMAN 100 UNIT/ML INJ,SOLOSTA R,3ML INJECT 20 UNITS UNDER THE SKIN AT BEDTIME FOR DIABETES (AT SAME TIME EACH DAY) - (DISCARD ANY UNUSED PORTION 28 DAYS AFTER OPENING) SUBCUT ANEOUS ACTIVE 02/17/2025 [id number] 5 ROLANDO BREAUX [address] [facility] INSULIN,GLA RGINE,HUMAN 100 UNT/ML INJ INJECT 20 UNITS UNDER THE SKIN AT BEDTIME FOR DIABETES (AT SAME TIME EACH DAY) - (DISCARD ANY UNUSED PORTION 28 DAYS AFTER OPENING) SUBCUT ANEOUS DISCONT INUED 02/17/2025 [id number] 5 ROLANDO BREAUX 2024 3 [facility] INS[facility],GLA RGINE-YFGN 100UNIT/ML INJ INJECT 20 UNITS UNDER THE SKIN AT BEDTIME FOR DIABETES (AT SAME TIME EACH DAY) - (DISCARD ANY UNUSED PORTION 28 DAYS AFTER OPENING) SUBCUT ANEOUS DISCONT INUED 05/26/2024 [id number] 4 EMELYN MANLEY 2023 3 [facility] LIDOCAINE 5% PATCH APPLY 1 PATCH TO SKIN SITE ONCE A DAY FOR LOCAL ANESTHES IA APPLY PATCH AND PRESS FIRMLY FOR 10-15 SECONDS. KEEP ON FOR 12 HOURS THEN REMOVE PATCH FOR 12 HOURS. TRANSD ERMAL 08/13/2024 [id number] 5 YRN [facility] [address] [facility] MAGNESIUM OXIDE 400MG TAB TAKE ONE TABLET BY MOUTH TWICE A DAY FOR DIETARY MAGNESIU M SUPPLEME NTATION ORAL ACTIVE 07/28/2025 [id number] 5 ROLANDO BREAUX [address] [facility] MAGNESIUM OXIDE 400MG TAB TAKE ONE TABLET BY MOUTH TWICE A DAY ORAL 04/06/2024 [id number] 4 EMELYN MANLEY [address] [facility] MEMANTINE HCL 5MG TAB TAKE ONE TABLET BY MOUTH TWICE A DAY FOR DEMENTIA (MORNING AND 2:00 PM) ORAL ACTIVE 03/08/2025 [id number] 5 ELIESER LYLE R [address] [facility] MEMANTINE HCL 5MG TAB TAKE ONE TABLET BY MOUTH TWICE A DAY FOR DEMENTIA (MORNING AND 2:00 PM) ORAL DISCONT INUED 03/08/2025 [id number] 5 ELIESER LYLE R [address] [facility] MEMANTINE HCL 5MG TAB TAKE ONE TABLET BY MOUTH TWICE A DAY FOR DEMENTIA (MORNING AND 2:00 PM) ORAL DISCONT INUED 02/24/2024 [id number] 4 EMELYN MANLEY [address] [facility] METOPROLOL SUCCINATE 25MG TAB,SA TAKE ONE-HALF TABLET BY MOUTH ONCE A DAY SKIP IF HEART RATE IS LESS THAN 60BPM. * DO NOT CRUSH OR CHEW* ORAL ACTIVE 11/02/2025 [id number] 5 Doyle TERAN 2024 45 [facility] METRONIDAZO LE 500MG TAB TAKE ONE TABLET BY MOUTH EVERY 8 HOURS FOR 7 DAYS TAKE UNTIL GONE UNLESS OTHERWIS E DIRECTED . AVOID ALCOHOL DURING USE AND FOR AT LEAST 3 DAYS AFTER DISCONTI NUATION. ORAL 12/22/2024 [id number] 5 GLO PRECIADO 2024 21 [facility] MIDODRINE HCL 10MG TAB TAKE ONE TABLET BY MOUTH THREE TIMES A DAY NEEDED FOR LOW BLOOD PRESSURE ORAL ACTIVE 07/28/2025 [id number] 5 ROLANDO BREAUX [address] [facility] MIDODRINE HCL 10MG TAB TAKE ONE TABLET BY MOUTH THREE TIMES A DAY NEEDED FOR LOW BLOOD PRESSURE ORAL 04/28/2024 [id number] 4 EMELYN MANLEY [address] [facility] NEEDLE,PEN 31G,5MM USE 1 NEEDLE UNDER THE SKIN THREE TIMES A DAY SUBCUT ANEOUS 04/06/2024 [id number] 4 EMELYN MANLEY [address] [facility] OMEPRAZOLE 20MG CAP,EC TAKE ONE CAPSULE BY MOUTH TWICE DAILY NEEDED FOR GASTROES OPHAGEAL REFLUX DISEASE TAKE 30 MINUTES PRIOR TO FOOD. ORAL ACTIVE 07/09/2025 [id number] 5 ROLANDO BREAUX R [address] [facility] OMEPRAZOLE 20MG CAP,EC TAKE ONE CAPSULE BY MOUTH TWICE A DAY FOR GASTROES OPHAGEAL REFLUX DISEASE TAKE 30 MINUTES PRIOR TO FOOD. ORAL 02/24/2024 [id number] 4 EMELYN MANLEY [address] [facility] POTASSIUM CHLORIDE 20MEQ TAB,SA (DISPERSIBL E) TAKE ONE TABLET BY MOUTH ONCE A DAY NEEDED FOR POTASSIU M SUPPLEME NTATION TAKE WITH FOOD ORAL ACTIVE 07/28/2025 [id number] 5 ROLANDO BREAUX R [address] [facility] POTASSIUM CHLORIDE 20MEQ TAB,SA (DISPERSIBL E) TAKE ONE TABLET BY MOUTH ONCE A DAY NEEDED FOR POTASSIU M SUPPLEME NTATION TAKE WITH FOOD ORAL 04/28/2024 [id number] 4 EMELYN MANLEY [address] [facility] SEMAGLUTIDE 0.25MG/0.37 5ML INJ,SOLN,PE N,3ML INJECT 0.5MG UNDER THE SKIN EVERY WEEK SUBCUT ANEOUS ACTIVE 07/12/2025 [id number] 5 BRADLEY MEYERS 2024 3 [facility] SEMAGLUTIDE 0.25MG/0.37 5ML INJ,SOLN,PE N,3ML INJECT 0.5MG UNDER THE SKIN EVERY WEEK FOR DIABETES SUBCUT ANEOUS 05/04/2024 [id number] 4 Armando CARRILLO 2023 3 [facility] SODIUM FLUORIDE 1.1% TOOTHPASTE USE DIRECTED BY MOUTH ONCE A DAY FOR DENTAL CARE TOOTHPAS TE (DO NOT SWALLOW) ORAL 08/20/2024 [id number] 4 YRN WRIGHT Margarita [address] [facility] TAMSULOSIN HCL 0.4MG CAP TAKE ONE CAPSULE BY MOUTH TWICE A DAY FOR BENIGN PROSTATI C HYPERPLA MAYLIN APPROXIM ATELY 30 MINUTES AFTER THE SAME MEAL EACH DAY ORAL ACTIVE 07/28/2025 [id number] 5 ROLANDO BREAUX [address] [facility] TAMSULOSIN HCL 0.4MG CAP TAKE ONE CAPSULE BY MOUTH TWICE A DAY APPROXIM ATELY 30 MINUTES AFTER THE SAME MEAL EACH DAY (FOR PROSTATE ) ORAL 04/06/2024 [id number] 4 EMELYN MANLEY [address] [facility] Allergies, Adverse Reactions, Alerts Combined list of allergies from Department of Defense and Veterans Affairs facilities. It does not include entries that were removed or entered in error. Substance Category Reaction Severity Reaction type Status Date Reported Comments Source LISINOPRIL Propensity to adverse reactions to drug (finding) Eruption active 4 [facility] Immunizations Combined list of available immunizations from the Department of Defense and Veterans Affairs facilities. Immunization Series Date Given Administered By Site Reaction Lot Number CVX Code Drug Public Administration Teacher Status Comments Source TDAP 1 2023 115 complet ed HISTORICA L INFORMATI ON - FROM OTHER REGISTRY, [facility] COVID-19 (MODERNA), MRNA, LNP-S, PF, 100 MCG/0.5 ML DOSE 2 2020 207 complet ed MOD; [id number]; 1 [facility]-19 (MODERNA), MRNA, LNP-S, PF, 100 MCG/0.5 ML DOSE 1 2020 207 complet ed MOD; [id number]; 1 [facility] INFLUENZA, HIGH-DOSE, TRIVALENT, PF 2 2018 135 complet ed HISTORICA L INFORMATI ON - FROM OTHER REGISTRY, [facility] INFLUENZA, UNSPECIFIED FORMULATION 2018 88 complet ed [facility] INFLUENZA, SEASONAL, INJECTABLE, PRESERVATIVE FREE 2017 140 complet ed Right Deltoid [facility] TDAP [address] [facility] INFLUENZA, INJECTABLE, QUADRIVALENT 2016 158 complet ed 02, Partner: Autumn . Administe red by: Autumn Clinician (NPI=Not Provided) . Partner 5 Lot#: [id number] [facility] INFLUENZA, INJECTABLE, QUADRIVALENT, PRESERVATIVE FREE 2016 150 complet ed 02, Partner: Autumn . Administe red by: Autumn Clinician (NPI=Not Provided) . Partner 5 Lot#: [id number] M[facility]: [facility] INFLUENZA, SEASONAL, INJECTABLE, PRESERVATIVE FREE 2015 140 complet ed Left Deltoid [facility] PNEUMOCOCCAL CONJUGATE PCV 13 2015 133 complet ed [facility] INFLUENZA, SEASONAL, INJECTABLE, PRESERVATIVE FREE 2014 140 complet ed [facility] PNEUMOCOCCAL POLYSACCHARID E [id number] 2013 33 complet ed [facility] INFLUENZA, UNSPECIFIED FORMULATION 2013 88 complet ed [facility], UNSPECIFIED FORMULATION 2012 88 complet ed [facility] INFLUENZA, UNSPECIFIED FORMULATION 2011 88 complet ed [facility] [facility] TD(ADULT) UNSPECIFIED FORMULATION 2010 139 complet ed Left Deltoid [facility] N INFLUENZA, UNSPECIFIED FORMULATION 2010 88 complet ed [facility] INFLUENZA, UNSPECIFIED FORMULATION [address] [facility] INFLUENZA, UNSPECIFIED FORMULATION 2008 88 complet ed [facility] N ZOSTER LIVE 2008 121 complet ed [facility] N INFLUENZA, UNSPECIFIED FORMULATION 2007 88 complet ed [facility] N INFLUENZA, UNSPECIFIED FORMULATION 2006 88 complet ed [facility] N INFLUENZA, UNSPECIFIED FORMULATION 2005 88 complet ed [facility] N INFLUENZA, UNSPECIFIED FORMULATION 2004 88 complet ed [facility] N INFLUENZA, UNSPECIFIED FORMULATION 2003 88 complet ed [facility] N INFLUENZA, UNSPECIFIED FORMULATION 2002 88 complet ed [facility] N INFLUENZA, UNSPECIFIED FORMULATION 2001 88 complet ed [facility] N INFLUENZA, UNSPECIFIED FORMULATION 2000 88 complet ed [facility] N TD(ADULT) UNSPECIFIED FORMULATION 2000 139 complet ed [facility] N Results Combined list of recent chemistry, hematology and other laboratory results from [employer] and [employer], ranging from 15 months to all on record, depending upon the facility. Order Name Results Value Reference Range Date Interpretation Specimen Comments Source URINALYSIS (STL-PB) COLOR OF URINE Light Yellow 04/28 Specimen Type: URINE No comment entered. Ordering Provider: EMELYN MANLEY Report Released Date/Time : Apr 28, 2023 03:46 PM Reporting Lab: [place] [facility] [address] [place] [address] Performin g Lab: [place] [facility] [address] [place] [address] [facility] URINALYSIS (STL-PB) BILIRUBIN.T OTAL [PRESENCE] IN URINE BY TEST STRIP NEGATIVEm g/dL 04/28 Specimen Type: URINE No comment entered. Ordering Provider: EMELYN MANLEY Report Released Date/Time : Apr 28, 2023 03:46 PM Reporting Lab: [place] [facility] [address] [place] [address] Performin g Lab: [place] [facility] [address] [place] [address] [facility] URINALYSIS (STL-PB) PH OF URINE BY TEST STRIP 5.5 5.0 - 8.0 04/28 Specimen Type: URINE No comment entered. Ordering Provider: EMELYN MANLEY Report Released Date/Time : Apr 28, 2023 03:46 PM Reporting Lab: [place] [facility] [address] [place] [address] Performin g Lab: [place] [facility] [address] [place] [address] [facility] URINALYSIS (STL-PB) APPEARANCE OF URINE CLEAR 04/28 Specimen Type: URINE No comment entered. Ordering Provider: EMELYN MANLEY Report Released Date/Time : Apr 28, 2023 03:46 PM Reporting Lab: [place] [facility] [address] [place] [address] Performin g Lab: [place] [facility] [address] [place] [address] [facility] URINALYSIS (STL-PB) NITRITE [PRESENCE] IN URINE BY TEST STRIP NEGATIVEm g/dL 04/28 Specimen Type: URINE No comment entered. Ordering Provider: EMELYN MANLEY Report Released Date/Time : Apr 28, 2023 03:46 PM Reporting Lab: [place] [facility] [address] [place] [address] Performin g Lab: [place] [facility] [address] [place] [address] [facility] URINALYSIS (STL-PB) GLUCOSE [MASS/VOLUM E] IN URINE BY TEST STRIP 50 mg/dL 04/28 H Specimen Type: URINE No comment entered. Ordering Provider: EMELYN MANLEY Report Released Date/Time : Apr 28, 2023 03:46 PM Reporting Lab: [place] [facility] [address] [place] [address] Performin g Lab: [place] [facility] [address] [place] [address] [facility] URINALYSIS (STL-PB) PROTEIN [MASS/VOLUM E] IN URINE BY TEST STRIP NEGATIVEm g/dL - 20 04/28 Specimen Type: URINE No comment entered. Ordering Provider: EMELYN MANLEY Report Released Date/Time : Apr 28, 2023 03:46 PM Reporting Lab: [place] [facility] [address] [place] [address] Performin g Lab: [place] [facility] [address] [place] [address] [facility] URINALYSIS (STL-PB) URN.UROBILI NOGEN NORMALmg/ dL 04/28 Specimen Type: URINE No comment entered. Ordering Provider: EMELYN MANLEY Report Released Date/Time : Apr 28, 2023 03:46 PM Reporting Lab: [place] [facility] [address] [place] [address] Performin g Lab: [place] [facility] [address] [place] [address] [facility] URINALYSIS (STL-PB) HEMOGLOBIN [MASS/VOLUM E] IN URINE BY TEST STRIP NEGATIVEm g/dL 04/28 Specimen Type: URINE No comment entered. Ordering Provider: EMELYN MANLEY Report Released Date/Time : Apr 28, 2023 03:46 PM Reporting Lab: [place] [facility] [address] [place] [address] Performin g Lab: [place] [facility] [address] [place] [address] [address] [facility] URINALYSIS (STL-PB) KETONES [MASS/VOLUM E] IN URINE BY TEST STRIP NEGATIVEm g/dL 04/28 Specimen Type: URINE No comment entered. Ordering Provider: EMELYN MANLEY Report Released Date/Time : Apr 28, 2023 03:46 PM Reporting Lab: [place] [facility] [address] [place] [address] Performin g Lab: [place] [facility] [address] [place] [address] [facility] URINALYSIS (STL-PB) URN.LEUK.ES T. NEGATIVE 04/28 Specimen Type: URINE No comment entered. Ordering Provider: EMELYN MANLEY Report Released Date/Time : Apr 28, 2023 03:46 PM Reporting Lab: [place] [facility] [address] [place] [address] Performin g Lab: [place] [facility] [address] [place] [address] [facility] URINALYSIS (STL-PB) SPECIFIC GRAVITY OF URINE 1.012 1.005 - 1.029 04/28 Specimen Type: URINE No comment entered. Ordering Provider: EMELYN MANLEY Report Released Date/Time : Apr 28, 2023 03:46 PM Reporting Lab: [place] [facility] [address] [place] [address] Performin g Lab: [place] [facility] [address] [place] [address] [address] [facility] VITAMIN D, 25-HYDROXY 25-HYDROXYV ITAMIN D3 [MASS/VOLUM E] IN SERUM OR PLASMA 54.3 ng/mL 30 - 96 04/02 Specimen Type: SERUM No comment entered. Ordering Provider: EMELYN MANLEY Report Released Date/Time : Apr 02, 2023 12:56 PM Reporting Lab: [place] [facility] [address] [place] [address] Performin g Lab: [place] [facility] [address] [place] [address] [place] [facility] TSH (MA-PB-STL ) THYROTROPIN [UNITS/VOLU ME] IN SERUM OR PLASMA 2.236 u[IU]/mL 0.47 - 5 04/02 Specimen Type: SERUM No comment entered. Ordering Provider: EMELYN MANLEY Report Released Date/Time : Apr 02, 2023 12:56 PM Reporting Lab: [place] [facility] [address] [place] [address] Performin g Lab: [place] [facility] [address] [place] [address] [place] [facility] HGA1C HEMOGLOBIN A1C/HEMOGLO BIN.TOTAL IN BLOOD 6.7 4.0 - 6.0 04/02 H Specimen Type: BLOOD No comment entered. Ordering Provider: EMELYN MANLEY Report Released Date/Time : Apr 02, 2023 12:56 PM Reporting Lab: [place] [facility] [address] [place] [address] Performin g Lab: [place] [facility] [address] [place] [address] [place] [facility] URINE ALBUMIN PROFILE-ih (PB) ALBUMIN [MASS/VOLUM E] IN URINE 65.20 mg/L 0 - 30 04/02 H Specimen Type: URINE No comment entered. Ordering Provider: EMELYN MANLEY Report Released Date/Time : Apr 02, 2023 12:56 PM Reporting Lab: [place] [facility] [address] [place] [address] Performin g Lab: [place] [facility] [address] [place] [address] [place] [facility] URINE ALBUMIN PROFILE-ih (PB) ALBUMIN/CRE ATININE [MASS RATIO] IN URINE 34.10 ug/mg 04/02 Specimen Type: URINE No comment entered. Ordering Provider: EMELYN MANLEY Report Released Date/Time : Apr 02, 2023 12:56 PM Reporting Lab: [place] [facility] [address] [place] [address] Performin g Lab: [place] [facility] [address] [place] [address] [place] [facility] URINE ALBUMIN PROFILE-ih (PB) CREATININE [MASS/VOLUM E] IN URINE 191.19 mg/dL 04/02 Specimen Type: URINE No comment entered. Ordering Provider: EMELYN MANLEY Report Released Date/Time : Apr 02, 2023 12:56 PM Reporting Lab: [place] [facility] [address] [place] [address] Performin g Lab: [place] [facility] [address] [place] [address] [place] [facility] CHOLESTERO L PANEL (PB) CHOLESTEROL [MASS/VOLUM E] IN SERUM OR PLASMA 177 mg/dL 0 - 200 04/02 Specimen Type: PLASMA No comment entered. Ordering Provider: EMELYN MANLEY Report Released Date/Time : Apr 02, 2023 12:56 PM Reporting Lab: [place] [facility] [address] [place] [address] Performin g Lab: [place] [facility] [address] [place] [address] [place] [facility] CHOLESTERO L PANEL (PB) TRIGLYCERID E [MASS/VOLUM E] IN SERUM OR PLASMA 109 mg/dL 0 - 150 04/02 Specimen Type: PLASMA No comment entered. Ordering Provider: EMELYN MANLEY Report Released Date/Time : Apr 02, 2023 12:56 PM Reporting Lab: [place] [facility] [address] [place] [address] Performin g Lab: [place] [facility] [address] [place] [address] [place] [facility] CHOLESTERO L PANEL (PB) CHOLESTEROL IN LDL [MASS/VOLUM E] IN SERUM OR PLASMA BY CALCULATION 129.1 mg/dL 04/02 Specimen Type: PLASMA No comment entered. Ordering Provider: EMELYN MANLEY Report Released Date/Time : Apr 02, 2023 12:56 PM Reporting Lab: [place] [facility] [address] [place] [address] Performin g Lab: [place] [facility] [address] [place] [address] [place] [facility] CHOLESTERO L PANEL (PB) CHOLESTEROL IN HDL [MASS/VOLUM E] IN SERUM OR PLASMA 26.1 mg/dL 40 04/02 L Specimen Type: PLASMA No comment entered. Ordering Provider: EMELYN MANLEY Report Released Date/Time : Apr 02, 2023 12:56 PM Reporting Lab: [place] [facility] [address] [place] [address] Performin g Lab: [place] [facility] [address] [place] [address] [place] [facility] CHOLESTERO L PANEL (PB) CHOLESTEROL IN HDL/CHOLEST ENZO.TOTAL [MASS RATIO] IN SERUM OR PLASMA 14.7 04/02 Specimen Type: PLASMA No comment entered. Ordering Provider: EMELYN MANLEY Report Released Date/Time : Apr 02, 2023 12:56 PM Reporting Lab: [place] [facility] [address] [place] [address] Performin g Lab: [place] [facility] [address] [place] [address] [place] [facility] COMPREHENS JUSTINA METABOLIC PANEL CREATININE [MASS/VOLUM E] IN SERUM OR PLASMA 1.59 mg/dL 0.7 - 1.3 04/02 H Specimen Type: PLASMA No comment entered. Ordering Provider: EMELYN MANLEY Report Released Date/Time : Apr 02, 2023 12:56 PM Reporting Lab: [place] [facility] [address] [place] [address] Performin g Lab: [place] [facility] [address] [place] [address] [place] [facility] COMPREHENS JUSTINA METABOLIC PANEL UREA NITROGEN [MASS/VOLUM E] IN SERUM OR PLASMA 30 mg/dL 9 - 04/02 H Specimen Type: PLASMA No comment entered. Ordering Provider: EMELYN MANLEY Report Released Date/Time : Apr 02, 2023 12:56 PM Reporting Lab: [place] [facility] [address] [place] [address] Performin g Lab: [place] [facility] [address] [place] [address] [place] [facility] COMPREHENS JUSTINA METABOLIC PANEL GLUCOSE [MASS/VOLUM E] IN SERUM OR PLASMA 108 mg/dL 72 - 99 04/02 H Specimen Type: PLASMA No comment entered. Ordering Provider: EMELYN MANLEY Report Released Date/Time : Apr 02, 2023 12:56 PM Reporting Lab: [place] [facility] [address] [place] [address] Performin g Lab: [place] [facility] [address] [place] [address] [place] [facility] COMPREHENS JUSTINA METABOLIC PANEL SODIUM [MOLES/VOLU ME] IN SERUM OR PLASMA 139 meq/L 136 - 145 04/02 Specimen Type: PLASMA No comment entered. Ordering Provider: EMELYN MANLEY Report Released Date/Time : Apr 02, 2023 12:56 PM Reporting Lab: [place] [facility] [address] [place] [address] Performin g Lab: [place] [facility] [address] [place] [address] [place] [facility] COMPREHENS JUSTINA METABOLIC PANEL POTASSIUM [MOLES/VOLU ME] IN SERUM OR PLASMA 4.5 meq/L 3.5 - 5 04/02 Specimen Type: PLASMA No comment entered. Ordering Provider: EMELYN MANLEY Report Released Date/Time : Apr 02, 2023 12:56 PM Reporting Lab: [place] [facility] [address] [place] [address] Performin g Lab: [place] [facility] [address] [place] [address] [place] [facility] COMPREHENS JUSTINA METABOLIC PANEL CHLORIDE [MOLES/VOLU ME] IN SERUM OR PLASMA 103 meq/L 98 - 107 04/02 Specimen Type: PLASMA No comment entered. Ordering Provider: EMELYN MANLEY Report Released Date/Time : Apr 02, 2023 12:56 PM Reporting Lab: [place] [facility] [address] [place] [address] Performin g Lab: [place] [facility] [address] [place] [address] [place] [facility] COMPREHENS JUSTINA METABOLIC PANEL CARBON DIOXIDE, TOTAL [MOLES/VOLU ME] IN SERUM OR PLASMA 27 meq/L 22 - 31 04/02 Specimen Type: PLASMA No comment entered. Ordering Provider: EMELYN MANLEY Report Released Date/Time : Apr 02, 2023 12:56 PM Reporting Lab: [place] [facility] [address] [place] [address] Performin g Lab: [place] [facility] [address] [place] [address] [place] [facility] COMPREHENS JUSTINA METABOLIC PANEL CALCIUM [MASS/VOLUM E] IN SERUM OR PLASMA 9.4 mg/dL 8.4 - 10.4 04/02 Specimen Type: PLASMA No comment entered. Ordering Provider: EMELYN MANLEY Report Released Date/Time : Apr 02, 2023 12:56 PM Reporting Lab: [place] [facility] [address] [place] [address] Performin g Lab: [place] [facility] [address] [place] [address] [place] [facility] COMPREHENS JUSTINA METABOLIC PANEL PROTEIN [MASS/VOLUM E] IN SERUM OR PLASMA 6.7 g/dL 6 - 8.6 04/02 Specimen Type: PLASMA No comment entered. Ordering Provider: EMELYN MANLEY Report Released Date/Time : Apr 02, 2023 12:56 PM Reporting Lab: [place] [facility] [address] [place] [address] Performin g Lab: [place] [facility] [address] [place] [address] [place] [facility] COMPREHENS JUSTINA METABOLIC PANEL ALBUMIN [MASS/VOLUM E] IN SERUM OR PLASMA 3.7 g/dL 3.4 - 5 04/02 Specimen Type: PLASMA No comment entered. Ordering Provider: EMELYN MANLEY Report Released Date/Time : Apr 02, 2023 12:56 PM Reporting Lab: [place] [facility] [address] [place] [address] 8 Performin g Lab: [place] [facility] [address] [place] [address] 8 [place] [facility] COMPREHENS JUSTINA METABOLIC PANEL BILIRUBIN.T OTAL [MASS/VOLUM E] IN SERUM OR PLASMA 0.7 mg/dL 0.2 - 1.2 04/02 Specimen Type: PLASMA No comment entered. Ordering Provider: EMELYN MANLEY Report Released Date/Time : Apr 02, 2023 12:56 PM Reporting Lab: [place] [facility] [address] [place] [address] Performin g Lab: [place] [facility] [address] [place] [address] [place] [facility] COMPREHENS JUSTINA METABOLIC PANEL ALKALINE PHOSPHATASE [ENZYMATIC ACTIVITY/VO LUME] IN SERUM OR PLASMA 89 U/L 40 - 150 04/02 Specimen Type: PLASMA No comment entered. Ordering Provider: EMELYN MANLEY Report Released Date/Time : Apr 02, 2023 12:56 PM Reporting Lab: [place] [facility] [address] [place] [address] Performin g Lab: [place] [facility] [address] [place] [address] [place] [facility] COMPREHENS JUSTINA METABOLIC PANEL ASPARTATE AMINOTRANSF ERASE [ENZYMATIC ACTIVITY/VO LUME] IN SERUM OR PLASMA 20 U/L 5 - 34 04/02 Specimen Type: PLASMA No comment entered. Ordering Provider: EMELYN MANLEY Report Released Date/Time : Apr 02, 2023 12:56 PM Reporting Lab: [place] [facility] [address] [place] [address] Performin g Lab: [place] [facility] [address] [place] [address] [place] [facility] COMPREHENS JUSTINA METABOLIC PANEL ALANINE AMINOTRANSF ERASE [ENZYMATIC ACTIVITY/VO LUME] IN SERUM OR PLASMA 21 U/L 8 - 40 04/02 Specimen Type: PLASMA No comment entered. Ordering Provider: EMELYN MANLEY Report Released Date/Time : Apr 02, 2023 12:56 PM Reporting Lab: [place] [facility] [address] [place] [address] Performin g Lab: [place] [facility] [address] [place] [address] [place] [facility] COMPREHENS JUSTINA METABOLIC PANEL GLOMERULAR FILTRATION RATE/1.73 SQ M.PREDICTED [VOLUME RATE/AREA] IN SERUM, PLASMA OR BLOOD BY CREATININE- BASED FORMULA (CKD-EPI 2020) 43 04/02 Specimen Type: PLASMA No comment entered. Ordering Provider: EMELYN MANLEY Report Released Date/Time : Apr 02, 2023 12:56 PM Reporting Lab: [place] [facility] [address] [place] [address] Performin g Lab: [place] [facility] [address] [place] [address] [place] [facility] FREE T4 THYROXINE (T4) FREE [MASS/VOLUM E] IN SERUM OR PLASMA 1.01 ng/dL 0.7 - 1.48 04/02 Specimen Type: SERUM No comment entered. Ordering Provider: EMELYN MANLEY Report Released Date/Time : Apr 02, 2023 12:56 PM Reporting Lab: [place] [facility] [address] [place] [address] [facility]formin g Lab: [place] [facility] [address] [place] [address] 8 [place] [facility] CBC LEUKOCYTES [#/VOLUME] IN BLOOD BY AUTOMATED COUNT 9.5 10*3/uL 3.6 - 11.2 04/02 Specimen Type: BLOOD No comment entered. Ordering Provider: EMELYN MANLEY Report Released Date/Time : Apr 02, 2023 12:56 PM Reporting Lab: [place] [facility] [address] [place] [address] 8 Performin g Lab: [place] [facility] [address] [place] [address] 8 [place] [facility] CBC ERYTHROCYTE S [#/VOLUME] IN BLOOD BY AUTOMATED COUNT 4.61 10*6/uL 4.10 - 5.70 04/02 Specimen Type: BLOOD No comment entered. Ordering Provider: EMELYN MANLEY Report Released Date/Time : Apr 02, 2023 12:56 PM Reporting Lab: [place] [facility] [address] [place] [address] Performin g Lab[place] [facility] [address] [place] [address] [place] [facility] CBC HEMOGLOBIN [MASS/VOLUM E] IN BLOOD 14.6 g/dL 13.1 - 16.8 04/02 Specimen Type: BLOOD No comment entered. Ordering Provider: EMELYN MANLEY Report Released Date/Time : Apr 02, 2023 12:56 PM Reporting Lab: [place] [facility] [address] [place] [address] Performin g Lab[facility] [place] [facility] [address] [place] [address] [place] [facility] CBC HEMATOCRIT [VOLUME FRACTION] OF BLOOD 42.6 38.2 - 48.4 04/02 Specimen Type: BLOOD No comment entered. Ordering Provider: EMELYN MANLEY Report Released Date/Time : Apr 02, 2023 12:56 PM Reporting Lab: [place] [facility] [address] [place] [address] Performin g Lab[facility] [place] [facility] [address] [place] [address] [place] [facility] CBC MCV [ENTITIC VOLUME] BY AUTOMATED COUNT 92.4 fL 80.0 - 100.0 04/02 Specimen Type: BLOOD No comment entered. Ordering Provider: EMELYN MANLEY Report Released Date/Time : Apr 02, 2023 12:56 PM Reporting Lab: [place] [facility] [address] [place] [address] Performin g Lab: [place] [facility] [address] [place] [address] [place] [facility] CBC MCH [ENTITIC MASS] BY AUTOMATED COUNT 31.7 pg 27.0 - 34.0 04/02 Specimen Type: BLOOD No comment entered. Ordering Provider: EMELYN MANLEY Report Released Date/Time : Apr 02, 2023 12:56 PM Reporting Lab: [place] [facility] [address] [place] [address] Performin g Lab: [place] [facility] [address] [place] [address] [place] [facility] CBC MCHC [MASS/VOLUM E] BY AUTOMATED COUNT 34.3 g/dL 33.0 - 36.0 04/02 Specimen Type: BLOOD No comment entered. Ordering Provider: EMELYN MANLEY Report Released Date/Time : Apr 02, 2023 12:56 PM Reporting Lab: [place] [facility] [address] [place] [address] Performin g Lab: [place] [facility] [address] [place] [address] [place] [facility] CBC PLATELETS [#/VOLUME] IN BLOOD BY AUTOMATED COUNT 205 10*3/uL 150 - 400 04/02 Specimen Type: BLOOD No comment entered. Ordering Provider: EMELYN MANLEY Report Released Date/Time : Apr 02, 2023 12:56 PM Reporting Lab: [place] [facility] [address] [place] [address] Performin g Lab: [place] [facility] [address] [place] [address] [place] [facility] CBC PLATELET MEAN VOLUME [ENTITIC VOLUME] IN BLOOD BY AUTOMATED COUNT 8.8 fL 7.5 - 11.2 04/02 Specimen Type: BLOOD No comment entered. Ordering Provider: EMELYN MANLEY Report Released Date/Time : Apr 02, 2023 12:56 PM Reporting Lab: [place] [facility] [address] [place] [address] Performin g Lab: [place] [facility] [address] [place] [address] 8 [place] [facility] CBC ERYTHROCYTE DISTRIBUTIO N WIDTH [RATIO] BY AUTOMATED COUNT 13.0 11.8 - 15.1 04/02 Specimen Type: BLOOD No comment entered. Ordering Provider: EMELYN MANLEY Report Released Date/Time : Apr 02, 2023 12:56 PM Reporting Lab: [place] [facility] [address] [place] [address] Performin g Lab: [place] [facility] [address] [place] [address] 8 [place] [facility] CBC LYMPHOCYTES /100 LEUKOCYTES IN BLOOD BY AUTOMATED COUNT 19.2 04/02 Specimen Type: BLOOD No comment entered. Ordering Provider: EMELYN MANLEY Report Released Date/Time : Apr 02, 2023 12:56 PM Reporting Lab: [place] [facility] [address] [place] [address] Performin g Lab: [place] [facility] [address] [place] [address] 8 [place] [facility] CBC MONOCYTES/1 00 LEUKOCYTES IN BLOOD BY AUTOMATED COUNT 7.3 04/02 Specimen Type: BLOOD No comment entered. Ordering Provider: EMELYN MANLEY Report Released Date/Time : Apr 02, 2023 12:56 PM Reporting Lab: [place] [facility] [address] [place] [address] Performin g Lab: [place] [facility] [address] [place] [address] 8 [place] [facility] CBC NEUTROPHILS /100 LEUKOCYTES IN BLOOD BY AUTOMATED COUNT 72.1 04/02 Specimen Type: BLOOD No comment entered. Ordering Provider: EMELYN MANLEY Report Released Date/Time : Apr 02, 2023 12:56 PM Reporting Lab: [place] [facility] [address] [place] [address] Performin g Lab: [place] [facility] [address] [place] [address] 8 [place] [facility] CBC EOSINOPHILS /100 LEUKOCYTES IN BLOOD BY AUTOMATED COUNT 0.7 04/02 Specimen Type: BLOOD No comment entered. Ordering Provider: EMELYN MANLEY Report Released Date/Time : Apr 02, 2023 12:56 PM Reporting Lab: [place] [facility] [address] [place] [address] Performin g [facility]: [place] [facility] [address] [place] [address] 8 [place] [facility] CBC BASOPHILS/1 00 LEUKOCYTES IN BLOOD BY AUTOMATED COUNT 0.4 04/02 Specimen Type: BLOOD No comment entered. Ordering Provider: EMELYN MANLEY Report Released Date/Time : Apr 02, 2023 12:56 PM Reporting Lab: [place] [facility] [address] [place] [address] Performin g Lab: [place] [facility] [address] [place] [address] 8 [place] [facility] CBC LYMPHOCYTES [#/VOLUME] IN BLOOD BY AUTOMATED COUNT 1.81 10*3/uL 0.77 - 4.50 04/02 Specimen Type: BLOOD No comment entered. Ordering Provider: EMELYN MANLEY Report Released Date/Time : Apr 02, 2023 12:56 PM Reporting Lab: [place] [facility] [address] [place] [address] Performin g Lab: [place] [facility] [address] [place] [address] [place] [facility] CBC MONOCYTES [#/VOLUME] IN BLOOD BY AUTOMATED COUNT 0.69 10*3/uL 0.19 - 0.8 04/02 Specimen Type: BLOOD No comment entered. Ordering Provider: EMELYN MANLEY Report Released Date/Time : Apr 02, 2023 12:56 PM Reporting Lab: [place] [facility] [address] [place] [address] Performin g Lab: [place] [facility] [address] [place] [address] 8 [place] [facility] CBC NEUTROPHILS [#/VOLUME] IN BLOOD BY AUTOMATED COUNT 6.81 10*3/uL 2.10 - 8.00 04/02 Specimen Type: BLOOD No comment entered. Ordering Provider: EMELYN MANLEY Report Released Date/Time : Apr 02, 2023 12:56 PM Reporting Lab: [place] [facility] [address] [place] [address] Performin g Lab: [place] [facility] [address] [place] [address] 8 [place] [facility] CBC EOSINOPHILS [#/VOLUME] IN BLOOD BY AUTOMATED COUNT 0.07 10*3/uL 0.00 - 0.60 04/02 Specimen Type: BLOOD No comment entered. Ordering Provider: EMELYN MANLEY Report Released Date/Time : Apr 02, 2023 12:56 PM Reporting Lab: [place] [facility] [address] [place] [address] Performin g Lab: [place] [facility] [address] [place] [address] 8 [place] [facility] CBC BASOPHILS [#/VOLUME] IN BLOOD BY AUTOMATED COUNT 0.04 10*3/uL 0.00 - 0.20 04/02 Specimen Type: BLOOD No comment entered. Ordering Provider: EMELYN MANLEY Report Released Date/Time : Apr 02, 2023 12:56 PM Reporting Lab: [place] [facility] [address] [place] [address] Performin g Lab: [place] [facility] [address] [place] [address] 8 [place] [facility] CBC IMMATURE GRANULOCYTE S/100 LEUKOCYTES IN BLOOD BY AUTOMATED COUNT 0.3 04/02 Specimen Type: BLOOD No comment entered. Ordering Provider: EMELYN MANLEY Report Released Date/Time : Apr 02, 2023 12:56 PM Reporting Lab: [place] [facility] [address] [place] [address] Performin g Lab: [place] [facility] [address] [place] [address] 8 [place] [facility] CBC IMMATURE GRANULOCYTE S [#/VOLUME] IN BLOOD BY AUTOMATED COUNT 0.03 10*3/uL 0.00 - 0.05 04/02 Specimen Type: BLOOD No comment entered. Ordering Provider: EMELYN MANLEY Report Released Date/Time : Apr 02, 2023 12:56 PM Reporting Lab: [place] [facility] [address] [place] [address] Performin g Lab: [place] [facility] [address] [place] [address] [place] [facility] URINALYSIS (STL-PB) COLOR OF URINE Yellow 04/02 Specimen Type: URINE No comment entered. Ordering Provider: EMELYN MANLEY Report Released Date/Time : Apr 03, 2023 03:58 PM Reporting Lab: [place] [facility] [address] [place] [address] Performin g Lab: [place] [facility] [address] [place] [address] [place] [facility] URINALYSIS (STL-PB) BILIRUBIN.T OTAL [PRESENCE] IN URINE BY TEST STRIP NEGATIVEm g/dL 04/02 Specimen Type: URINE No comment entered. Ordering Provider: EMELYN MNALEY Report Released Date/Time : Apr 03, 2023 03:58 PM Reporting Lab: [place] [facility] [address] [place] [address] Performin g Lab: [place] [facility] [address] [place] [address] 8 [place] [facility] URINALYSIS (STL-PB) PH OF URINE BY TEST STRIP 6.0 5.0 - 8.0 04/02 Specimen Type: URINE No comment entered. Ordering Provider: EMELYN MANLEY Report Released Date/Time : Apr 03, 2023 03:58 PM Reporting Lab: [place] [facility] [address] [place] [address] Performin g Lab: [place] [facility] [address] [place] [address] 8 [place] [facility] URINALYSIS (STL-PB) ERYTHROCYTE S [#/VOLUME] IN URINE SEDIMENT BY MICROSCOPY HIGH POWER FIELD 3 /[HPF] 0 - 5 04/02 Specimen Type: URINE No comment entered. Ordering Provider: EMELYN MANLEY Report Released Date/Time : Apr 03, 2023 03:58 PM Reporting Lab: [place] [facility] [address] [place] [address] Performin g Lab: [place] [facility] [address] [place] [address] [place] [facility] URINALYSIS (STL-PB) APPEARANCE OF URINE CLEAR 04/02 Specimen Type: URINE No comment entered. Ordering Provider: EMELYN MANLEY Report Released Date/Time : Apr 03, 2023 03:58 PM Reporting Lab: [place] [facility] [address] [place] [address] Performin g Lab: [place] [facility] [address] [place] [address] 8 [place] [facility] URINALYSIS (STL-PB) NITRITE [PRESENCE] IN URINE BY TEST STRIP NEGATIVEm g/dL 04/02 Specimen Type: URINE No comment entered. Ordering Provider: EMELYN MANLEY Report Released Date/Time : Apr 03, 2023 03:58 PM Reporting Lab: [place] [facility] [address] [place] [address] Performin g Lab: [place] [facility] [address] [place] [address] [place] [facility] URINALYSIS (STL-PB) EPITHELIAL CELLS [#/AREA] IN URINE SEDIMENT BY MICROSCOPY LOW POWER FIELD 4 /[HPF] 0 - 5 04/02 Specimen Type: URINE No comment entered. Ordering Provider: EMELYN MANLEY Report Released Date/Time : Apr 03, 2023 03:58 PM Reporting Lab: [place] [facility] [address] [place] [address] Performin g Lab: [place] [facility] [address] [place] [address] 8 [place] [facility] URINALYSIS (STL-PB) MUCUS [PRESENCE] IN URINE SEDIMENT BY LIGHT MICROSCOPY RARE/[LPF ] 04/02 Specimen Type: URINE No comment entered. Ordering Provider: EMELYN MANLEY Report Released Date/Time : Apr 03, 2023 03:58 PM Reporting Lab: [place] [facility] [address] [place] [address] 8 Performin g Lab: [place] [facility] [address] [place] [address] [place] [facility] URINALYSIS (STL-PB) HYALINE CASTS [#/AREA] IN URINE SEDIMENT BY MICROSCOPY LOW POWER FIELD 4 /[LPF] 0 - 5 04/02 Specimen Type: URINE No comment entered. Ordering Provider: EMELYN MANLEY Report Released Date/Time : Apr 03, 2023 03:58 PM Reporting Lab: [place] [facility] [address] [place] [address] Performin g Lab: [place] [facility] [address] [place] [address] 8 [place] [facility] URINALYSIS (STL-PB) GLUCOSE [MASS/VOLUM E] IN URINE BY TEST STRIP NORMALmg/ dL 04/02 Specimen Type: URINE No comment entered. Ordering Provider: EMELYN MANLEY Report Released Date/Time : Apr 03, 2023 03:58 PM Reporting Lab: [place] [facility] [address] [place] [address] Performin g Lab: [place] [facility] [address] [place] [address] 8 [place] [facility] URINALYSIS (STL-PB) PROTEIN [MASS/VOLUM E] IN URINE BY TEST STRIP 30 mg/dL - 20 04/02 H Specimen Type: URINE No comment entered. Ordering Provider: EMELYN MANLEY Report Released Date/Time : Apr 03, 2023 03:58 PM Reporting Lab: [place] [facility] [address] [place] [address] Performin g Lab: [place] [facility] [address] [place] [address] [place] [facility] URINALYSIS (STL-PB) URN.UROBILI NOGEN NORMALmg/ dL 04/02 Specimen Type: URINE No comment entered. Ordering Provider: EMELYN MANLEY Report Released Date/Time : Apr 03, 2023 03:58 PM Reporting Lab: [place] [facility] [address] [place] [address] [facility]formin g [facility]: [place] [facility] [address] [place] [address] 8 [place] [facility] URINALYSIS (STL-PB) HEMOGLOBIN [MASS/VOLUM E] IN URINE BY TEST STRIP NEGATIVEm g/dL 04/02 Specimen Type: URINE No comment entered. Ordering Provider: EMELYN MANLEY Report Released Date/Time : Apr 03, 2023 03:58 PM Reporting Lab: [place] [facility] [address] [place] [address] [facility]formin g [facility] [place] [facility] [address] [place] [address] 8 [place] [facility] URINALYSIS (STL-PB) KETONES [MASS/VOLUM E] IN URINE BY TEST STRIP NEGATIVEm g/dL 04/02 Specimen Type: URINE No comment entered. Ordering Provider: EMELYN MANLEY Report Released Date/Time : Apr 03, 2023 03:58 PM Reporting Lab: [place] [facility] [address] [place] [address] [facility]formin g [facility]: [place] [facility] [address] [place] [address] [place] [facility] URINALYSIS (STL-PB) URN.LEUK.ES T. NEGATIVEm g/dL 04/02 Specimen Type: URINE No comment entered. Ordering Provider: EMELYN MANLEY Report Released Date/Time : Apr 03, 2023 03:58 PM Reporting Lab: [place] [facility] [address] [place] [address] 8 [facility]formin g [facility]: [place] [facility] [address] [place] [address] [place] [facility] URINALYSIS (STL-PB) SPECIFIC GRAVITY OF URINE 1.026 1.005 - 1.029 04/02 Specimen Type: URINE No comment entered. Ordering Provider: EMELYN MANLEY Report Released Date/Time : Apr 03, 2023 03:58 PM Reporting Lab: [place] [facility] [address] [place] [address] [facility]formin g [facility]: [place] [facility] [address] [place] [address] 8 [place] [facility] Encounters Combined list of: 1) Encounters from [facility] of Veterans Affairs facilities going backup to the last 18 months, not all [place] inpatient encounters are included; 2) Encounters from the Department of Defense facilities going backup to 280 months. Location Location Details Encounter Type Encounter Number Reason For Visit Attending Provider ADM Date DC Date Status Disposition Source [facility] Outpatient Encounter [id number] ALONDRA CAMPBELL E 07/30 [facility] Outpatient Encounter [id number] 08/04 [facility] Outpatient Encounter [id number] 08/09 [facility] Outpatient Encounter [id number] 08/09 [facility] [place] [facility] Outpatient Encounter [id number] DEB WARREN A 08/10 [place] [facility] OFFICE O/P EST MOD 30 MIN [id number] Diagnos is: ICD-10- CM M54.2 Cervica lgia LOERLEI WRIGHT G 08/11 [facility] FUNDUS PHOTOGRAPH Y W/I&R [id number] Diagnos is: ICD-10- CM Z13.5 Encount er for screeni ng for eye and ear disorde RAQUEL Bergeron M 08/11 [facility] [place] [facility] IMG RTA DETC/MNTR DS PHY/QHP [id number] Diagnos is: ICD-10- CM Z13.9 Encount er for screeni ng, unspeci fied FRANCISCO JAVIER HERNANDEZ N 08/11 [place] [facility] Outpatient Encounter [id number] 08/12 [facility] Outpatient Encounter [id number] 08/30 [facility] Outpatient Encounter [id number] 08/31 [facility] Outpatient Encounter [id number] 09/02 [facility] Outpatient Encounter [id number] 09/03 [facility] [place] [facility] Outpatient Encounter [id number] 09/06 [place] [facility] Outpatient Encounter [id number] 09/07 [facility] [place] [facility] Outpatient Encounter [id number] 09/10 [place] [facility] Outpatient Encounter [id number] LORELEI WANG N 09/12 [facility] [place] [facility] Outpatient Encounter [id number] 09/13 [place] [facility] Outpatient Encounter [id number] Diagnos is: ICD-10- CM R51.9 Headach e, unspeci fied RAIZA BREAUX R 09/17 [facility] Outpatient Encounter [id number] Alex ACOSTA R 09/17 [facility] Outpatient Encounter [id number] 09/23 [facility] Outpatient Encounter [id number] 09/23 [facility] [place] [facility] Outpatient Encounter [id number] Diagnos is: ICD-10- CM Z71.9 Local Delivery Driver ing, unspeci fied JACINDA VASQUES 09/24 [place] [facility] Outpatient Encounter [id number] 09/[address] [facility] Encounter [id number] TOMASA DEMPSEY 10/04 [facility] Outpatient Encounter [id number] CUSTRED,TO RRI J 10/05 [facility] PRO PHONE CALL 11-20 MIN [id number] Diagnos is: ICD-10- CM Z71.9 Local Delivery Driver ing, unspeci fied JACINDA VASQUES 10/05 [facility] Outpatient Encounter [id number] GABRIEL ONEILL 10/05 [facility] Outpatient Encounter [id number] 10/07 [facility] Outpatient Encounter [id number] 10/08 [facility] Outpatient Encounter [id number] 10/20 [facility] Outpatient Encounter [id number] 10/20 [facility] Outpatient Encounter [id number] 10/20 [facility] Outpatient Encounter [id number] ALONDRA CAMPBELL 10/21 [facility] Outpatient Encounter [id number] 10/22 [facility] [place] [facility] Outpatient Encounter [id number] 10/25 [facility] OFFICE O/P EST LOW 20 MIN [id number] Diagnos is: ICD-10- CM F33.1 Major depress justina disorde r, recurre nt, moderat e SULLY LYLE R 10/25 [facility] Outpatient Encounter [id number] 10/26 [facility] HHCP-SERV OF PT,EA 15 MIN [id number] Diagnos is: ICD-10- CM M15.9 Polyost eoarthr itis, unspeci fied FRANCESCA,ALONZO HOLAS A 10/26 [place] [facility] Outpatient Encounter [id number] 10/26 [facility] Outpatient Encounter [id number] JACINDA VASQUES 11[facility]01 [facility] En[facility] [id number] 11/02 [facility] FEE [id number] Diagnos is: ICD-10- CM H90.3 Sensori neural hearing loss, bilater al ABEBETORIE LONG RT P 11/11 [facility] HEARING A[facility] EXAM BOTH EARS [id number] Diagnos is: ICD-10- CM H90.3 Sensori neural hearing loss, bilater al ABEBEROBE RT P 11/11 [place] [facility] Outpatient Encounter [id number] 11/12 [facility] Outpatient Encounter [id number] 11/19 [facility] [place] [facility] Outpatient Encounter [id number] 11/19 [place] [facility] [place] [facility]-10 MIN [id number] Diagnos is: ICD-10- CM Z71.9 Local Delivery Driver ing, unspeci fied DIVELBISSJACINDA 11/19 [facility] Outpatient Encounter [id number] TOMASA DEMPSEY 11/19 [facility] Outpatient Encounter [id number] 11/22 [facility] Outpatient Encounter [id number] 11/29 [facility] Outpatient Encounter [id number] 12/08 [facility] FEE [id number] Diagnos is: ICD-10- CM Z46.1 Encount er for fitting and adjustm ent of hearing aid TORIE ABEBE RT P 12/09 [facility] FITTING/[place] E[place] [id number] Diagnos is: ICD-10- CM Z46.1 Encount er for fitting and adjustm ent of hearing aid TORIE ABEBE RT P 12/09 [facility] Outpatient Encounter [id number] 12/23 [facility] [place] [facility] Outpatient Encounter [id number] 12/23 [place] [facility] [place] [facility] Outpatient Encounter [id number] 12/27 BRANDON VALLECILLO [facility] Outpatient Encounter [id number] KEAP RIL L 12/27 [facility] [place] [facility] QNHP OL DIG ASSMT&MGMT 5-10 [id number] Diagnos is: ICD-10- CM E11.40 Type 2 diabete s mellitu s with diabeti c neuropa thy, unsp ROSEANNA REED V 12/27 [place] [facility] [place] [facility] Outpatient Encounter [id number] 12/27 GALILEANilay AVEL [facility] [place] [facility] Outpatient Encounter [id number] 12/27 [place] [facility] [place] [facility] Outpatient Encounter [id number] SAL MAYO 12/28 YEHELLEN COSTELLOE [facility] Outpatient Encounter [id number] 12/28 [facility] [place] [facility] Outpatient Encounter [id number] JOSÉ ONEILL 12/28 FADIVYAE AVEL [facility] [place] [facility] Outpatient Encounter [id number] 12/29 [place] [facility] [place] [facility] Outpatient Encounter [id number] 12/29 TEMO VALLECILLO [facility] CHAYA PECK [facility] Outpatient Encounter [id number] 01/04 [facility] VALLECILLO [facility] Outpatient Encounter [id number] 01/05 [facility] En[facility] [id number] 01/05 [facility] En[facility] [id number] 01/07 [facility] En[facility] [id number] 01/31 [facility] [place] [facility] Outpatient Encounter [id number] [id number] 02/02 [place] [facility] Outpatient Encounter [id number] [id number] 5 02/02 [facility] Outpatient Encounter 33216-3.65 [id number] 02/04 [facility] Encounter 83483-3.65 [id number] 5 02/04 [facility] Out[facility] Encounter 83254-3.65 [id number] 02/07 [facility] [place] [facility] Outpatient Encounter 89956-2.65 [id number] 02/[address] [facility] Outpatient Encounter 96415-3.65 [id number] 02/08 [facility] Outpatient Encounter [id number] [id number] 02/08 [facility] Outpatient Encounter [id number] [id number] 02/08 [facility] Outpatient Encounter [id number] [id number] 4 02/09 [facility] [place] [facility] Outpatient Encounter [id number] [id number] 02/[address] [facility] OFFICE O/P EST HI 40 MIN [id number] [id number] Diagnos is: ICD-10- CM I48.91 Unspeci fied atrial fibrill ation RAIZA BREAUX 02/18 [facility] [facility] En[facility] 15529-4.65 [id number] SEAN SCOTT 02/18 [place] [facility] Outpatient Encounter 58766-3.65 [id number] JACINDA VASQUES 02/18 [facility] Outpatient Encounter 85006-7.65 [id number] 02/23 [facility] Outpatient Encounter [id number] [id number] 02/28 [facility] Outpatient Encounter [id number] [id number] 02/28 [facility] Outpatient Encounter 23339-5.65 [id number] 03/03 [facility] Outpatient Encounter [id number] [id number] 5 03/04 [facility] Outpatient Encounter 10611-2.65 [id number] TOMASA DEMPSEY L 03/07 [facility] OFFICE O/P EST MOD 30 MIN [id number] [id number] Diagnos is: ICD-10- CM F03.A18 Unspeci fied dementi a, mild, with other behavio ral disturb SULLY LYLE 03[facility]07 [facility] Out[facility] Encounter 57533-2.65 [id number] 03/18 [place] [facility] Outpatient Encounter 86734-5.65 [id number] 03/30 [facility] Out[facility] Encounter 94612-6.65 [id number] 3 03/31 [facility] PH1 ASSMT&MGMT NQHP 11-20 [id number] [id number] Diagnos is: ICD-10- CM Z71.9 Local Delivery Driver ing, unspeci fied JAICNDA VASQUES 03/31 [facility] Outpatient Encounter [id number] [id number] 04/04 [facility] Encounter [id number] [id number] 2 04/11 [facility] MTMS BY PHARM 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 04/15 [facility] [place] [facility] PH1 ASSMT&MGMT NQHP 5-10 [id number] [id number] Diagnos is: ICD-10- CM Z71.9 Local Delivery Driver ing, unspeci fied JACINDA VASQUES 04/15 [facility] Outpatient Encounter [id number] [id number] 04/28 [facility] PH1 ASSMT&MGMT NQHP 5-10 [id number] [id number] Diagnos is: ICD-10- CM Z71.89 Other specifi ed family and marriage counsellor ing SHARON LAWRENCE FAROOQ L 04/28 [facility] Outpatient Encounter 92917-8.65 [id number] 04/28 [facility] Outpatient Encounter 83632-5.65 [id number] 04/29 [facility] Outpatient Encounter [id number] [id number] 3 05/02 [facility] Outpatient Encounter 03359-8.65 [id number] 05/05 [facility] Outpatient Encounter [id number] [id number] 1 05/12 [facility] [place] [facility] Outpatient Encounter [id number] [id number] 05/12 [place] [facility] Outpatient Encounter 01462-4.65 [id number] WHITE,ALLEN SSA D 05/16 [facility] [place] [facility] Outpatient Encounter 41302-5.65 [id number] 05/16 [place] [facility] [place] [facility] Outpatient Encounter 52666-2.65 [id number] 05/19 [place] [facility] Outpatient Encounter [id number] [id number] 05/25 [facility] [place] [facility] Encounter [id number] [id number] 05/26 [place] [facility] [place] [facility] PH1 ASSMT&MGMT NQHP 21-30 [id number] [id number] Diagnos is: ICD-10- CM G47.33 Obstruc tive sleep apnea (adult) (pediat shade) CELIOCIDNY M 05/26 [place] [facility] Outpatient Encounter [id number] [id number] DACIA SERRATO M 06/01 [facility] Outpatient Encounter [id number] [id number] 1 06/02 [facility] OFFICE O/P EST MOD 30 MIN [id number] [id number] Diagnos is: ICD-10- CM F32.9 Major depress justina disorde r, single episode , unspeci fied DARIELASULLY 06/02 [facility] Outpatient Encounter [id number] [id number] 06/02 [facility] Outpatient Encounter 18082-3.65 [id number] 06/30 [facility] Outpatient Encounter 45918-7.65 [id number] 07/01 [facility] Outpatient Encounter 52615-5.65 [id number] 2 07/07 [facility] Out[facility] Encounter 40199-3.65 [id number] 4 07/08 [facility] Outpatient Encounter [id number] [id number] 4 07/11 [facility] PH1 ASSMT&MGMT NQHP 21-30 [id number] [id number] Diagnos is: ICD-10- CM G47.33 Obstruc tive sleep apnea (adult) (pediat shade) CINDY PICKENS 07/12 [facility] Outpatient Encounter [id number] [id number] 07/14 [facility] Out[facility] Encounter 84222-6.65 [id number] 1 JACINDA VASQUES 07/15 [facility] Outpatient Encounter 98238-4.65 [id number] 1 DIVJACINDA LINDA 07/15 [facility] Outpatient Encounter [id number] [id number] STARR DORSEY Chantale 07/20 [facility] [place] [facility] Outpatient Encounter 20120-7.65 [id number] 07/22 [place] [facility] [place] [facility] Outpatient Encounter 42215-9.65 [id number] 07/22 [place] [facility] Outpatient Encounter 89255-4.65 [id number] TOMASA DEMPSEY 07/25 [facility] [place] [facility] Outpatient Encounter 58978-3.65 [id number] 07/25 [place] [facility] Outpatient Encounter 12688-2.65 [id number] 08/03 [facility] Outpatient Encounter [id number] [id number] SHRUTHI DE 08/16 [facility] Outpatient Encounter 22833-3.65 [id number] 09/01 [facility] [place] [facility] Outpatient Encounter [id number] [id number] 09/02 [place] [facility] Outpatient Encounter 54324-2.65 [id number] 4 09/02 [facility] Outpatient Encounter [id number] [id number] 09/07 [facility] Encounter 18515-4.65 [id number] 09/08 [facility] [place] [facility] Outpatient Encounter 57599-6.65 [id number] 09/08 [place] [facility] Outpatient Encounter 12039-5.56 [id number] 09/12 [facility] Outpatient Encounter 84970-5.65 [id number] 09/12 [facility] [place] [facility] Outpatient Encounter [id number] [id number] 09/12 [place] [facility] [place] [facility] Outpatient Encounter [id number] [id number] 09/12 [place] [facility] Outpatient Encounter [id number] [id number] 09/12 [facility] [place] [facility] PH1 ASSMT&MGMT NQHP 11-20 [id number] [id number] Diagnos is: ICD-10- CM R54 Age-rel ated physica l debilit y KARLAL YNTORIA R 09/12 [place] [facility] Outpatient Encounter 92557-2.56 [id number] SAL MAYO 09/13 [facility] [place] [facility] Outpatient Encounter [id number] [id number] 09/16 [place] [facility] SYNCH AUDIO-VIDE O EST LOW 20 51422-3.65 [id number] Diagnos is: ICD-10- CM F33.0 Major depress justina disorde r, recurre nt, mild SULLY LYLE R 09/16 [facility] Outpatient Encounter [id number] [id number] 09/19 [facility] CB SYNCH AUDIO-ONLY EST HIGH 40 [id number] [id number] Diagnos is: ICD-10- CM R55 Syncope and collaps e NAMITARAIZA Rama 09/27 [facility] Outpatient Encounter 92511-4.65 [id number] 09/27 [facility] Outpatient Encounter 01020-6.65 [id number] 1 09/28 [facility] Outpatient Encounter 74769-4.65 [id number] 1 CUSTRED,TO RRI J 09/29 [facility] Outpatient Encounter 41320-9.65 [id number] 10/03 [facility] N [facility] Outpatient Encounter 77046-3.65 [id number] 10/03 [facility] [place] [facility] Outpatient Encounter 43524-9.65 [id number] 900 10/03 [place] [facility] [place] [facility] PH1 ASSMT&MGMT NQHP 21-30 [id number] [id number] Diagnos is: ICD-10- CM Z74.1 Need for assista nce with personCLAUDIA Diop 10/03 [place] [facility] Outpatient Encounter [id number] [id number] 10/03 [facility] N [place] [facility] Outpatient Encounter [id number] [id number] 08/01 /2025 [place] [facility] Outpatient Encounter 21496-8.65 [id number] 3 10/10 [facility] Outpatient Encounter 82844-7.65 [id number] 3 10/10 [facility] [place] [facility] Outpatient Encounter [id number] [id number] 10/11 [place] [facility] Outpatient Encounter [id number] [id number] 10/14 [facility] Outpatient Encounter 11402-8.65 [id number] 10/25 [facility] Outpatient Encounter 38816-2.65 [id number] 11/21 [facility] Outpatient Encounter 79196-7.65 [id number] 1 CLAUDIA POWER 11/21 [facility] Outpatient Encounter 79803-2.65 [id number] TOMASA DEMPSEY 11/22 [facility] N [place] [facility] Outpatient Encounter 85525-3.65 [id number] 11/22 [place] [facility] Outpatient Encounter [id number] [id number] ROOSEVELT WARREN 11/22 [facility] N [place] [facility] Outpatient Encounter [id number] [id number] 11/22 [place] [facility] [place] [facility] Outpatient Encounter [id number] [id number] 11/22 [place] [facility] Outpatient Encounter [id number] [id number] 11/24 [facility] [place] [facility] Outpatient Encounter [id number] [id number] 11/30 [place] [facility] Outpatient Encounter [id number] [id number] 12/05 [facility] N [facility] OFFICE O/P EST MOD 30 MIN [id number] [id number] Diagnos is: ICD-10- CM R19.09 Other intra-a bdomina l and pelvic swellin g, mass and lump RAIZA BREAUX 12/08 [facility] Encounter [id number] [id number] 12/20 [facility] Outpatient Encounter [id number] [id number] 12/30 [facility] Outpatient Encounter [id number] [id number] 01/02 [facility] Outpatient Encounter [id number] [id number] 01/06 [facility] Social History Combined list of available smoking, tobacco, and other social history from Department of Defense and Veterans Affairs facilities. Social History Type Response Date Comment Sour e Tobacco smoking status NHIS VA-TOBACCO USE FORMER CIGARETTES 06/01/2024 [facility] History of tobacco use VA-TOBACCO NEVER USED OTHER TYPE 06/01/2024 [facility] History of tobacco use VA-TOBACCO NEVER USED 04/06/2023 [facility] History of tobacco use VA-TOBACCO FORMER USER 02/01/2021 [facility] History of tobacco use VA-TOBACCO QUIT 15 YRS OR MORE 06/28/2018 [facility] History of tobacco use QUIT TOBACCO >7 YEARS AGO 01/25/2018 [facility] History of tobacco use QUIT TOBACCO >7 YEARS AGO 01/06/2018 [facility] History of tobacco use QUIT TOBACCO >7 YEARS AGO 11/02/2017 [facility] History of tobacco use QUIT TOBACCO >7 YEARS AGO 12/11/2016 [facility] History of tobacco use LIFETIME NON-USER OF TOBACCO 07/19/2015 [facility] History of tobacco use QUIT TOBACCO >7 YEARS AGO 07/25/2014 [facility] History of tobacco use LIFETIME NON-USER OF TOBACCO 08/29/2013 [facility] History of tobacco use QUIT TOBACCO >7 YEARS AGO 10/07/2012 [facility] History of tobacco use QUIT TOBACCO >7 YEARS AGO 07/22/2006 [facility] History of tobacco use CURRENT NON-TOBACCO USER-HX OF USE 01/05/2006 [facility] History of tobacco use CURRENT NON-TOBACCO USER-HX OF USE 06/04/2005 [facility] History of tobacco use CURRENT NON-TOBACCO USER-HX OF USE 12/23/2004 [facility] History of tobacco use CURRENT NON-TOBACCO USER-HX OF USE 02/05/2004 [facility] History of tobacco use CURRENT NON-TOBACCO USER-HX OF USE 05/29/2003 [facility] History of tobacco use LIFETIME NON-TOBACCO USER 06/27/2002 [facility] History of tobacco use CURRENT NON-TOBACCO USER-HX OF USE 05/31/2001 quit 1970 [facility] History of tobacco use CURRENT NON-TOBACCO USER-HX OF USE 07/15/2000 [facility] Plan of Care List of future care activities from Department of [facility] Affairs facilities. Additional future care activities may be listed in the Assessment and Plan section. Date/Time Care Activity Care Activity Detail Facili ty 02/06/2025 AMBULATORY - MEDICINE AMBULATORY - MEDICI [facility] Advance Directives List of completed, amended, or rescinded Advance Directives on record at [facility] facilities. An actual copy of the Directive is not included. Date Advance Directive Provider Source 03/13/2020 ADVANCE DIRECTIVE BIBI DUFF FF [facility] 03/13/2020 CLINICAL WARNING BIBI DUFF F [facility] 08/19/2010 ADVANCE DIRECTIVE JESUS AGUERO V [facility] 08/19/2010 ADVANCE DIRECTIVE DISCUSSION NURY BENAVIDES [facility]
[2025-01-19 04:39] VITALS: BP 136/71; PULSE 98; RESP 16; TEMP 36.3; O2SAT 95; BMI 29.8
--- OUTSIDE RECORDS SUMMARY | 2025-01-19 04:44 | XMS_ITS | Continuity of Care Document ---
Author Organization [facility] Address [address] [place] [address] Care Team Providers Care Supervisor [employer]er [employer] Name Role Phone Dr. Pawel Reeves DO Attending Physician Medications Medication Frequency Instructions Diagnosis Start Date End Date Status Last Administered aspirin 81 mg tablet,delayed release (/EC) Once A Day 1, oral, Once A Day 024 2023 Not Active 02/03/2024 07:56 AM atorvastatin 80 mg tablet Once A Day 1, oral, Once A Day 2023 Not Active 02/03/2024 07:56 AM buspirone 5 mg tablet Three Times A Day 1, oral, Three Times A Day 2023 Not Active 02/03/2024 03:43 PM Calmoseptine (menthol-zinc oxide) 0.44-20.6 % ointment Every Shift as directed, topical, Every Shift, Buttock: Cleanse with ns and gauze, apply cream q shift and prn 024 2023 Not Active 01/31/2024 10:49 PM carvedilol 12.5 mg tablet Twice A Day 1, oral, Twice A Day 2023 Not Active 01/05/2024 07:19 PM cholecalciferol (vitamin D3) 50 mcg (2,000 unit) capsule Once A Day 1, oral, Once A Day 024 2023 Not Active 01/06/2024 11:34 AM cholecalciferol (vitamin D3) 25 mcg (1,000 unit) tablet Once A Day 2 tabs (2,000 unit), oral, Once A Day 2023 Not Active 02/03/2024 07:56 AM Dulcolax (bisacodyl) (bisacodyl) 10 mg suppository Once A Day - PRN 1 suppository, rectal, Once A Day - PRN, ckd give if no BM x 3 days 2023 Not Active duloxetine 20 mg capsule,delayed release(DR/EC) Once A Day 2, oral, Once A Day 024 2023 Not Active 01/06/2024 11:34 AM duloxetine 40 mg capsule,delayed release(DR/EC) Once A Day 1 cap, oral, Once A Day 2023 Not Active 02/03/2024 07:56 AM Eliquis (apixaban) 2.5 mg tablet Twice A Day 1, oral, Twice A Day 2023 Not Active 02/03/2024 07:56 AM Fiber (calcium polycarbophil) (calcium polycarbophil) 625 mg tablet Once A Day 2, oral, Once A Day 2023 Not Active 02/03/2024 07:56 AM finasteride 5 mg tablet Once A Day 1, oral, Once A Day 2023 Not Active 02/03/2024 07:56 AM furosemide 40 mg tablet Once A Day 1, oral, Once A Day 024 2023 Not Active 02/03/2024 07:56 AM insulin aspart U-100 100 unit/mL (3 mL) insulin pen With Meals 10 units, subcutaneous, With Meals 2023 Not Active 01/19/2024 07:24 AM insulin aspart U-100 100 unit/mL (3 mL) insulin pen With Meals 12 units, subcutaneous, With Meals 2023 Not Active 02/03/2024 04:31 PM Lantus Solostar U-100 Insulin (insulin glargine) 100 unit/mL (3 mL) insulin pen At Bedtime 20 units, subcutaneous, At Bedtime 2023 Not Active 01/18/2024 07:19 PM Lantus Solostar U-100 Insulin (insulin glargine) 100 unit/mL (3 mL) insulin pen At Bedtime 25 units, subcutaneous, At Bedtime 2023 Not Active 02/02/2024 07:20 PM magnesium oxide 400 mg magnesium tablet Twice A Day 1, oral, Twice A Day 2023 Not Active 01/06/2024 11:34 AM magnesium oxide 400 mg (241.3 mg magnesium) tablet Twice A Day 1 tab, oral, Twice A Day 2023 Not Active 02/03/2024 07:56 AM memantine 5 mg tablet Twice A Day 1, oral, Twice A Day 2023 Not Active 02/03/2024 07:56 AM midodrine 2.5 mg tablet Twice A Day 1, oral, Twice A Day 2023 Not Active 02/03/2024 07:56 AM omeprazole 20 mg capsule,delayed release(DR/EC) Twice A Day 1, oral, Twice A Day 2023 Not Active 02/03/2024 07:56 AM Ozempic (semaglutide) 0.25 mg or 0.5 mg (2 mg/3 mL) pen injector Once a Day on Mon 0.5mg, subcutaneous, Once a Day on Mon 2023 Not Active tamsulosin 0.4 mg capsule Twice A Day 1, oral, Twice A Day 2023 Not Active 02/03/2024 07:56 AM Tubersol (tuberculin ppd) 5 tub. unit /0.1 mL solution Once - One Time 0.1ml, intradermal, Once - One Time, Administer the morning after admission 2023 Not Active 01/06/2024 11:37 AM Tubersol (tuberculin ppd) 5 tub. unit /0.1 mL solution Once - One Time 0.1ml, intradermal, Once - One Time, Administer on the day shift 2023 Not Active 01/14/2024 09:40 AM Tylenol (acetaminophen) 325 mg tablet Every 6 Hours - PRN 2 tabs/650mg, oral, Every 6 Hours - PRN, as needed for PRN pain/increased temp May give rectally if necessary 2023 Not Active Problems Code Type Problem ICD Code Effective Date Status ICD-10 Aphasia R47.01 01/05/2024 Active ICD-10 Unspecified intracra nial injury without loss of consciousness, subsequent encounter S06.9X0D 01/05/2024 A ctive ICD-10 History of falling Z91.81 01/05/2024 Active ICD-10 Difficulty in walkin g, not elsewhere classified R26.2 01/06/2024 Active ICD-10 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 and stage 1 through stage 4 chronic kidney disease, or unspecified chronic kidney disease I13.0 01/05/2024 Activ e ICD-10 Personal history of nicotine dependence Z87.891 01/05/2024 Active ICD-10 Heart failure, unspecified I50.9 Active ICD-10 Unspecified atrial fibrillation I48.91 12/08 Active ICD-10 FDC (current) use of anticoagulants Z79.0 1 01/05/2024 Active ICD-10 FDC (current) use of aspirin Z79.82 1 Active ICD-10 Type 2 diabetes mellitus with hyperglycemia E11 .65 01/05/2024 Active ICD-10 Type 2 diabetes rafita itus with diabetic neuropathy, unspecified E11.40 01/05/2024 Active ICD-10 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 01/05/2024 Active ICD-10 Chronic kidney disease, stage 2 (mild) N18.2 01/05/2024 Active ICD-10 intermission coordinator (current) use of insulin Z79.4 1 Active ICD-10 Mixed hyperlipidemia E78.2 01/05/2024 Acti ve ICD-10 Benign prostatic hyp erplasia without lower urinary tract symptoms N40.0 01/12/2024 Active ICD-10 Unvaccinated for COVID-19 Z28.310 01/05/2024 Active Current Allergies and Intolerances Category Substance Type Reaction Severity Begin Date Status Drug allergy lisinopril Allergy 01/05/2024 Activ e Vital Signs Height: 69.5 in Date / Time Temperature Pulse (per minute) Respirations (per minute) Systolic BP (mmHg) Diastolic BP (mmHg) O2 Saturation (%) Weight BMI 2023 09:43 AM 97.8 F 60 16 107 51 94.0 2023 07:54 AM 119 62 2023 07:20 PM 97.2 F 76 19 94.0 2023 06:32 PM 129 63 2023 09:41 AM 97.7 F 85 16 112 69 92.0 2023 06:40 PM 97.4 F 81 18 94.0 2023 06:17 PM 111 60 2023 09:01 AM 97.5 F 88 21 130 70 92.0 2023 10:50 PM 16 2023 10:49 PM 97.0 F 70 95.0 2023 10:48 PM 136 70 2023 08:02 AM 97.7 F 89 20 132 86 94.0 2023 07:15 AM 132 86 2023 07:10 PM 98.2 F 54 23 150 70 97.0 2023 09:39 AM 97.8 F 62 18 95.0 2023 07:26 PM 98.1 F 85 21 97.0 2023 03:51 PM 199.0 lbs 28.9 6 2023 12:29 PM 197.7 lbs 28.7 7 2023 02:35 PM 198.8 lbs 28.9 3 2023 03:05 PM 197.0 lbs 28.6 7 Advance Directives Directive Note Full Code Insurance Providers Payer Policy type Group Name Group number Policy ID Address Ph one Medicare Part A Medicare Part A [id number] Phone: Fax: [facility] Medicare Part A [id number] Phone: Fax: Private Private Phone: Fax: Private Interest Private Phone: Fax: Immunizations Vaccine Custom Tailor Date Status Dose Series Complete COVID-19 Vaccine 01/05/2024 Refused Influenza Vaccine 01/05/2024 Refused Pneumococcal Vaccine 01/05/2024 Refused RSV Vaccine 01/05/2024 Refused Procedures Not available for this record Results Not available for this record Goals No Goals are on file for this resident Encounters Admission Date Discharge Date Description MRN Visit Count 01/05/2024 16:25 02/03/2024 17:06 LTPAC Admission [id number]
--- OUTSIDE RECORDS SUMMARY | 2025-01-19 04:45 | XMS_ITS | Continuity of Care Document ---
Author Organization [employer] [facility] ([facility]) Address [address] [place] [address] Insurance Providers Payer Plan Claims Address Claims Phone Policy Number Group Number Relation Employer Guarantor Name Guarantor Guarantor Address Guarantor Phone MEDIC ARE tel:[phone] [id number] Self Jose Armendariz 1940 [address] [place] [address] [employer] [address], [place] [address] [id number] Self Jose Armendariz 1940 [address] [place] [address] [employer] [address], [place] [address] tel:[phone] Self Jose Armendariz 1940 [address] [place] [address] Problems Condition ICD9 code ICD10 code SNOMED [...] Active Unspecified atrial fibrillation I48.91 01/05/2024 Active terminal worker (current) use of anticoagulants Z79.01 01/05/2024 Active terminal worker (current) use of aspirin Z79.82 01/05/2024 Active Type 2 diabetes mellitus with hyperglycemia E11.65 01/05/2024 Active Type 2 diabetes mellitus with diabetic neuropathy, unspecified E11.40 01/05/2024 Active Type 2 diabetes mellitus with diabetic chronic kidney disease E11.22 01/05/2024 Active Chronic kidney disease, stage 2 (mild) N18.2 01/05/2024 Active terminal worker (current) use of insulin Z79.4 01/05/2024 Active Mixed hyperlipidemia E78.2 01/05/2024 Active Benign prostatic hyperplasia without lower urinary tract symptoms N40.0 01/12/2024 Ac tive Unvaccinated for COVID-19 Z28.310 01/05/2024 Active Results Test Result Date/Time Value / Unit Interp. Refere nce Range Blood chemistry[[id number]] Glucose [Mass/volume] in Serum or Plasma [2345-7] 02/03/2024 05:12 PM 208 mg/dL N Blood chemistry[[id number]] Glucose [Mass/volume] in Serum or Plasma [2345-7] 02/03/2024 01:55 PM 133 mg/dL N Blood chemistry[[id number]] Glucose [Mass/volume] in Serum or Plasma [2345-7] 02/03/2024 10:31 AM 237 mg/dL N Blood chemistry[[id number]] Glucose [Mass/volume] in Serum or Plasma [2345-7] 02/02/2024 03:41 PM 165 mg/dL N Blood chemistry[[id number]] Glucose [Mass/volume] in Serum or Plasma [2345-7] 02/02/2024 12:33 PM 224 mg/dL N Blood chemistry[[id number]] Glucose [Mass/volume] in Serum or Plasma [2345-7] 02/02/2024 11:24 AM 264 mg/dL N Blood chemistry[[id number]] Glucose [Mass/volume] in Serum or Plasma [2345-7] 02/02/2024 08:11 AM 184 mg/dL N Blood chemistry[[id number]] Glucose [Mass/volume] in Serum or Plasma [2345-7] 02/01/2024 05:18 PM 207 mg/dL N Blood chemistry[[id number]] Glucose [Mass/volume] in Serum or Plasma [2345-7] 02/01/2024 03:01 PM 219 mg/dL N Blood chemistry[[id number]] Glucose [Mass/volume] in Serum or Plasma [2345-7] 02/01/2024 12:18 PM 308 mg/dL N Blood chemistry[[id number]] Glucose [Mass/volume] in Serum or Plasma [2345-7] 02/01/2024 10:59 AM 253 mg/dL N Blood chemistry[[id number]] Glucose [Mass/volume] in Serum or Plasma [2345-7] 01/31/2024 01:31 PM 338 mg/dL N Blood chemistry[[id number]] Glucose [Mass/volume] in Serum or Plasma [2345-7] 01/31/2024 01:11 PM 234 mg/dL N Blood chemistry[[id number]] Glucose [Mass/volume] in Serum or Plasma [2345-7] 01/31/2024 10:33 AM 226 mg/dL N Blood chemistry[[id number]] Glucose [Mass/volume] in Serum or Plasma [2345-7] 01/30/2024 05:23 PM 291 mg/dL N Blood chemistry[[id number]] Glucose [Mass/volume] in Serum or Plasma [2345-7] 01/30/2024 01:42 PM 247 mg/dL N Blood chemistry[[id number]] Glucose [Mass/volume] in Serum or Plasma [2345-7] 01/30/2024 01:03 PM 293 mg/dL N Blood chemistry[[id number]] Glucose [Mass/volume] in Serum or Plasma [2345-7] 01/30/2024 09:57 AM 284 mg/dL N Blood chemistry[[id number]] Glucose [Mass/volume] in Serum or Plasma [2345-7] 01/29/2024 05:28 PM 258 mg/dL N Blood chemistry[[id number]] Glucose [Mass/volume] in Serum or Plasma [2345-7] 01/29/2024 02:55 PM 227 mg/dL N Blood chemistry[[id number]] Glucose [Mass/volume] in Serum or Plasma [2345-7] 01/29/2024 12:58 PM 350 mg/dL N Blood chemistry[[id number]] Glucose [Mass/volume] in Serum or Plasma [2345-7] 01/29/2024 12:01 PM 255 mg/dL N Blood chemistry[[id number]] Glucose [Mass/volume] in Serum or Plasma [2345-7] 01/28/2024 04:49 PM 354 mg/dL N Blood chemistry[[id number]] Glucose [Mass/volume] in Serum or Plasma [2345-7] 01/28/2024 01:05 PM 189 mg/dL N Blood chemistry[[id number]] Glucose [Mass/volume] in Serum or Plasma [2345-7] 01/28/2024 12:57 PM 243 mg/dL N Blood chemistry[[id number]] Glucose [Mass/volume] in Serum or Plasma [2345-7] 01/27/2024 06:19 PM 254 mg/dL N Blood chemistry[[id number]] Glucose [Mass/volume] in Serum or Plasma [2345-7] 01/27/2024 03:16 PM 239 mg/dL N Blood chemistry[[id number]] Glucose [Mass/volume] in Serum or Plasma [2345-7] 01/27/2024 12:14 PM 202 mg/dL N Blood chemistry[[id number]] Glucose [Mass/volume] in Serum or Plasma [2345-7] 01/26/2024 05:27 PM 214 mg/dL N Blood chemistry[[id number]] Glucose [Mass/volume] in Serum or Plasma [2345-7] 01/26/2024 01:33 PM 187 mg/dL N Blood chemistry[[id number]] Glucose [Mass/volume] in Serum or Plasma [2345-7] 01/26/2024 12:17 PM 323 mg/dL N Blood chemistry[[id number]] Glucose [Mass/volume] in Serum or Plasma [2345-7] 01/26/2024 11:04 AM 263 mg/dL N Blood chemistry[[id number]] Glucose [Mass/volume] in Serum or Plasma [2345-7] 01/25/2024 05:56 PM 135 mg/dL N Blood chemistry[[id number]] Glucose [Mass/volume] in Serum or Plasma [2345-7] 01/25/2024 03:27 PM 172 mg/dL N Blood chemistry[[id number]] Glucose [Mass/volume] in Serum or Plasma [2345-7] 01/25/2024 02:31 PM 246 mg/dL N Blood chemistry[[id number]] Glucose [Mass/volume] in Serum or Plasma [2345-7] 01/25/2024 11:40 AM 273 mg/dL N Blood chemistry[[id number]] Glucose [Mass/volume] in Serum or Plasma [2345-7] 01/24/2024 05:47 PM 235 mg/dL N Blood chemistry[[id number]] Glucose [Mass/volume] in Serum or Plasma [2345-7] 01/24/2024 01:21 PM 171 mg/dL N Blood chemistry[[id number]] Glucose [Mass/volume] in Serum or Plasma [2345-7] 01/24/2024 12:59 PM 300 mg/dL N Blood chemistry[[id number]] Glucose [Mass/volume] in Serum or Plasma [2345-7] 01/24/2024 11:34 AM 225 mg/dL N Blood chemistry[[id number]] Glucose [Mass/volume] in Serum or Plasma [2345-7] 01/23/2024 05:55 PM 284 mg/dL N Blood chemistry[[id number]] Glucose [Mass/volume] in Serum or Plasma [2345-7] 01/23/2024 04:16 PM 155 mg/dL N Blood chemistry[[id number]] Glucose [Mass/volume] in Serum or Plasma [2345-7] 01/23/2024 01:12 PM 217 mg/dL N Blood chemistry[[id number]] Glucose [Mass/volume] in Serum or Plasma [2345-7] 01/23/2024 10:41 AM 267 mg/dL N Blood chemistry[[id number]] Glucose [Mass/volume] in Serum or Plasma [2345-7] 01/22/2024 06:45 PM 214 mg/dL N Blood chemistry[[id number]] Glucose [Mass/volume] in Serum or Plasma [2345-7] 01/22/2024 03:06 PM 240 mg/dL N Blood chemistry[[id number]] Glucose [Mass/volume] in Serum or Plasma [2345-7] 01/22/2024 02:27 PM 164 mg/dL N Blood chemistry[[id number]] Glucose [Mass/volume] in Serum or Plasma [2345-7] 01/22/2024 11:01 AM 200 mg/dL N Blood chemistry[[id number]] Glucose [Mass/volume] in Serum or Plasma [2345-7] 01/21/2024 05:00 PM 243 mg/dL N Blood chemistry[[id number]] Glucose [Mass/volume] in Serum or Plasma [2345-7] 01/21/2024 01:33 PM 197 mg/dL N Blood chemistry[[id number]] Glucose [Mass/volume] in Serum or Plasma [2345-7] 01/21/2024 12:26 PM 257 mg/dL N Blood chemistry[[id number]] Glucose [Mass/volume] in Serum or Plasma [2345-7] 01/20/2024 05:37 PM 213 mg/dL N Blood chemistry[[id number]] Glucose [Mass/volume] in Serum or Plasma [2345-7] 01/20/2024 01:29 PM 204 mg/dL N Blood chemistry[[id number]] Glucose [Mass/volume] in Serum or Plasma [2345-7] 01/20/2024 12:27 PM 322 mg/dL N Blood chemistry[[id number]] Glucose [Mass/volume] in Serum or Plasma [2345-7] 01/20/2024 11:07 AM 300 mg/dL N Blood chemistry[[id number]] Glucose [Mass/volume] in Serum or Plasma [2345-7] 01/19/2024 05:16 PM 235 mg/dL N Blood chemistry[[id number]] Glucose [Mass/volume] in Serum or Plasma [2345-7] 01/19/2024 01:24 PM 255 mg/dL N Blood chemistry[[id number]] Glucose [Mass/volume] in Serum or Plasma [2345-7] 01/19/2024 12:46 PM 270 mg/dL N Blood chemistry[[id number]] Glucose [Mass/volume] in Serum or Plasma [2345-7] 01/19/2024 10:07 AM 257 mg/dL N Blood chemistry[[id number]] Glucose [Mass/volume] in Serum or Plasma [2345-7] 01/18/2024 06:38 PM 202 mg/dL N Blood chemistry[[id number]] Glucose [Mass/volume] in Serum or Plasma [2345-7] 01/18/2024 01:44 PM 194 mg/dL N Blood chemistry[[id number]] Glucose [Mass/volume] in Serum or Plasma [2345-7] 01/18/2024 01:18 PM 176 mg/dL N Blood chemistry[[id number]] Glucose [Mass/volume] in Serum or Plasma [2345-7] 01/18/2024 09:55 AM 289 mg/dL N Blood chemistry[[id number]] Glucose [Mass/volume] in Serum or Plasma [2345-7] 01/17/2024 05:26 PM 289 mg/dL N Blood chemistry[[id number]] Glucose [Mass/volume] in Serum or Plasma [2345-7] 01/17/2024 01:45 PM 179 mg/dL N Blood chemistry[[id number]] Glucose [Mass/volume] in Serum or Plasma [2345-7] 01/17/2024 01:32 PM 271 mg/dL N Blood chemistry[[id number]] Glucose [Mass/volume] in Serum or Plasma [2345-7] 01/17/2024 11:19 AM 220 mg/dL N Blood chemistry[[id number]] Glucose [Mass/volume] in Serum or Plasma [2345-7] 01/16/2024 06:09 PM 274 mg/dL N Blood chemistry[[id number]] Glucose [Mass/volume] in Serum or Plasma [2345-7] 01/16/2024 02:03 PM 198 mg/dL N Blood chemistry[[id number]] Glucose [Mass/volume] in Serum or Plasma [2345-7] 01/16/2024 01:22 PM 330 mg/dL N Blood chemistry[[id number]] Glucose [Mass/volume] in Serum or Plasma [2345-7] 01/16/2024 11:55 AM 277 mg/dL N Blood chemistry[[id number]] Glucose [Mass/volume] in Serum or Plasma [2345-7] 01/15/2024 06:22 PM 281 mg/dL N Blood chemistry[[id number]] Glucose [Mass/volume] in Serum or Plasma [2345-7] 01/15/2024 02:23 PM 198 mg/dL N Blood chemistry[[id number]] Glucose [Mass/volume] in Serum or Plasma [2345-7] 01/15/2024 01:32 PM 307 mg/dL N Blood chemistry[[id number]] Glucose [Mass/volume] in Serum or Plasma [2345-7] 01/14/2024 05:24 PM 215 mg/dL N Tuberculosis reaction wheal[ 76835-0] Tuberculosis reaction wheal [95717-7] 01/14/2024 03:38 PM 0 mm NEG Blood chemistry[[id number]] Glucose [Mass/volume] in Serum or Plasma [2345-7] 01/14/2024 02:26 PM 179 mg/dL N Blood chemistry[[id number]] Glucose [Mass/volume] in Serum or Plasma [2345-7] 01/14/2024 12:50 PM 262 mg/dL N Blood chemistry[[id number]] Glucose [Mass/volume] in Serum or Plasma [2345-7] 01/14/2024 10:34 AM 219 mg/dL N Blood chemistry[[id number]] Glucose [Mass/volume] in Serum or Plasma [2345-7] 01/13/2024 06:12 PM 222 mg/dL N Blood chemistry[[id number]] Glucose [Mass/volume] in Serum or Plasma [2345-7] 01/13/2024 01:45 PM 161 mg/dL N Blood chemistry[[id number]] Glucose [Mass/volume] in Serum or Plasma [2345-7] 01/13/2024 01:10 PM 212 mg/dL N Blood chemistry[[id number]] Glucose [Mass/volume] in Serum or Plasma [2345-7] 01/13/2024 11:22 AM 202 mg/dL N Blood chemistry[[id number]] Glucose [Mass/volume] in Serum or Plasma [2345-7] 01/12/2024 04:39 PM 154 mg/dL N Blood chemistry[[id number]] Glucose [Mass/volume] in Serum or Plasma [2345-7] 01/12/2024 01:05 PM 356 mg/dL N Blood chemistry[[id number]] Glucose [Mass/volume] in Serum or Plasma [2345-7] 01/12/2024 10:38 AM 225 mg/dL N Glucose [Mass/volume] in Serum or Plasma [2345-7] 01/12/2024 10:38 AM 206 mg/dL N Blood chemistry[[id number]] Glucose [Mass/volume] in Serum or Plasma [2345-7] 01/11/2024 02:51 PM 173 mg/dL N Blood chemistry[[id number]] Glucose [Mass/volume] in Serum or Plasma [2345-7] 01/11/2024 01:25 PM 180 mg/dL N Blood chemistry[[id number]] Glucose [Mass/volume] in Serum or Plasma [2345-7] 01/11/2024 07:28 AM 151 mg/dL N Blood chemistry[[id number]] Glucose [Mass/volume] in Serum or Plasma [2345-7] 01/10/2024 05:07 PM 214 mg/dL N Blood chemistry[[id number]] Glucose [Mass/volume] in Serum or Plasma [2345-7] 01/10/2024 01:43 PM 242 mg/dL N Blood chemistry[[id number]] Glucose [Mass/volume] in Serum or Plasma [2345-7] 01/10/2024 01:28 PM 157 mg/dL N Blood chemistry[[id number]] Glucose [Mass/volume] in Serum or Plasma [2345-7] 01/10/2024 10:09 AM 269 mg/dL N Blood chemistry[[id number]] Glucose [Mass/volume] in Serum or Plasma [2345-7] 01/09/2024 04:52 PM 206 mg/dL N Blood chemistry[[id number]] Glucose [Mass/volume] in Serum or Plasma [2345-7] 01/09/2024 12:39 PM 275 mg/dL N Blood chemistry[[id number]] Glucose [Mass/volume] in Serum or Plasma [2345-7] 01/09/2024 12:24 PM 163 mg/dL N Blood chemistry[[id number]] Glucose [Mass/volume] in Serum or Plasma [2345-7] 01/09/2024 09:13 AM 209 mg/dL N Blood chemistry[[id number]] Glucose [Mass/volume] in Serum or Plasma [2345-7] 01/08/2024 04:54 PM 181 mg/dL N Blood chemistry[[id number]] Glucose [Mass/volume] in Serum or Plasma [2345-7] 01/08/2024 12:46 PM 266 mg/dL N Blood chemistry[[id number]] Glucose [Mass/volume] in Serum or Plasma [2345-7] 01/08/2024 12:12 PM 223 mg/dL N Blood chemistry[[id number]] Glucose [Mass/volume] in Serum or Plasma [2345-7] 01/08/2024 09:36 AM 226 mg/dL N Blood chemistry[[id number]] Glucose [Mass/volume] in Serum or Plasma [2345-7] 01/07/2024 11:44 AM 229 mg/dL N Tuberculosis reaction wheal[ 97053-4] Tuberculosis reaction wheal [38595-5] 01/06/2024 03:00 PM 0 mm NEG Allergies, adverse reactions, alerts [...] Twice A Day oral 1.0 12.0 h 01/054 Active cholecalciferol (vitamin D3) 50 mcg (2,000 [...] (insulin glargine)) 25 units, subcutaneous, At [facility] 1.0 02/02 Active magnesium oxide 400 [...] Vital Result Comment 02/03/2024 09:43 AM Temperature (8310-5) 97.8 [degF] Oxygen Saturation (05742-3) 94 % Respiratory Rate (9279-1) 16 /min Heart Rate (8867-4) 60 /min Blood Pressure Systolic (8480-6) 107 mm[Hg] Blood Pressure Diastolic (8462-4) 51 mm[Hg] 02/03/2024 07:54 AM Blood Pressure Systolic (8480-6) 1 19 mm[Hg] Blood Pressure Diastolic (8462-4) 62 mm[Hg] 02/02/2024 07:20 PM Temperature (8310-5) 97.2 [degF] Oxygen Saturation (44847-7) 94 % Respiratory Rate (9279-1) 19 /min Heart Rate (8867-4) 76 /min 02/02/2024 06:32 PM Blood Pressure Systolic (8480-6) 1 29 mm[Hg] Blood Pressure Diastolic (8462-4) 63 mm[Hg] 02/02/2024 09:41 AM Temperature (8310-5) 97.7 [degF] Oxygen Saturation (62261-4) 92 % Respiratory Rate (9279-1) 16 /min Heart Rate (8867-4) 85 /min Blood Pressure Systolic (8480-6) 112 mm[Hg] Blood Pressure Diastolic (8462-4) 69 mm[Hg] 02/01/2024 06:40 PM Temperature (8310-5) 97.4 [degF] Oxygen Saturation (00254-1) 94 % Respiratory Rate (9279-1) 18 /min Heart Rate (8867-4) 81 /min 02/01/2024 06:17 PM Blood Pressure Systolic (8480-6) 1 11 mm[Hg] Blood Pressure Diastolic (8462-4) 60 mm[Hg] 02/01/2024 09:01 AM Temperature (8310-5) 97.5 [degF] Oxygen Saturation (96580-6) 92 % Respiratory Rate (9279-1) 21 /min Heart Rate (8867-4) 88 /min Blood Pressure Systolic (8480-6) 130 mm[Hg] Blood Pressure Diastolic (8462-4) 70 mm[Hg] 01/31/2024 10:50 PM Respiratory Rate (9279-1) 16 /min 01/31/2024 10:49 PM Temperature (8310-5) 97 [degF] Oxygen Saturation (89231-5) 95 % Heart Rate (8867-4) 70 /min 01/31/2024 10:48 PM Blood Pressure Systolic (8480-6) 1 36 mm[Hg] Blood Pressure Diastolic (8462-4) 70 mm[Hg] 01/31/2024 08:02 AM Temperature (8310-5) 97.7 [degF] Oxygen Saturation (57592-1) 94 % Respiratory Rate (9279-1) 20 /min Heart Rate (8867-4) 89 /min Blood Pressure Systolic (8480-6) 132 mm[Hg] Blood Pressure Diastolic (8462-4) 86 mm[Hg] 01/31/2024 07:15 AM Blood Pressure Systolic (8480-6) 1 32 mm[Hg] Blood Pressure Diastolic (8462-4) 86 mm[Hg] 01/30/2024 07:10 PM Temperature (8310-5) 98.2 [degF] Oxygen Saturation (52675-2) 97 % Respiratory Rate (9279-1) 23 /min Heart Rate (8867-4) 54 /min Blood Pressure Systolic (8480-6) 150 mm[Hg] Blood Pressure Diastolic (8462-4) 70 mm[Hg] 01/30/2024 09:39 AM Temperature (8310-5) 97.8 [degF] Oxygen Saturation (76190-6) 95 % Respiratory Rate (9279-1) 18 /min Heart Rate (8867-4) 62 /min 01/29/2024 07:26 PM Temperature (8310-5) 98.1 [degF] Oxygen Saturation (49585-9) 97 % Respiratory Rate (9279-1) 21 /min Heart Rate (8867-4) 85 /min 01/27/2024 03:51 PM Body Weight (87248-7) 199 [lb_av] Body Mass Index (58541-1) 28.96 kg/m2 01/08/2024 12:29 PM Body Weight (27391-3) 197.7 [lb_av ] Body Mass Index (28495-4) 28.77 kg/m2 01/06/2024 02:35 PM Body Weight (02323-8) 198.8 [lb_av ] Body Mass Index (03027-8) 28.93 kg/m2 01/05/2024 03:05 PM Body Height (8302-2) 69.5 [in_us] Body Weight (94862-2) 197 [lb_av] Body Mass Index (90840-6) 28.67 kg/m2 Social History No smoking Hx information available Encounters Type CPT Code Date Location Provider Indication s encounter report 01/05/2024 04:2 5 PM - 02/03/2024 05:06 PM Pawel Reeves DO 01 Advance Directives Directive Description Verification Date Supporting Document(s) Other Directive
--- OUTSIDE RECORDS SUMMARY | 2025-01-19 04:45 | XMS_ITS | Encounter Summary ---
Author Organization [facility] Address [address] [facility] [address] [place] [address] Phone Care Team Providers Care Tank Tender Name Role Phone Sam Fay Primary Care Provider [phone] Encounter Details Date Type Department Care Team (Late st Contact Info) Description 06/23/2018 Orders Only [facility] [address] [place], [place] [address] Lavon Bazzi MD [address] [place] [address] [place] [address] Chronic kidney disease stage 3; Nonspecific abnormal results of function study of kidney Social History Tobacco Use Types Packs/Day Years Used Date Smoking Tobacco: Former Cigarettes 0 Q uit: 1970 Smokeless Tobacco: Never Alcohol [...] PROTEIN ELECTROPHORESIS, SERUM Routine 02/28/2019 9:00 AM HEART SURGEON Nonspecific abnormal results of function study of kidney Chronic kidney disease stage 3 (HCC) PROTEIN / CREATININE RATIO, URINE Routine 06/15/2018 Chronic kidney disease stage 3 URINALYSIS WITH MICROSCOPIC Routine 06/15/2018 Chronic kidney disease stage 3 CBC AND DIFFERENTIAL Routine 06/15/2018 Chronic kidney disease stage 3 documented in this encounter Results * Protein electrophoresis, serum (02/28/2019 9:00 AM HEART SURGEON) Total Protein, Serum 6.4 g/dL Albumin SPE 3.8 g/dL Globulin, Total 0.3 g/dL Comment 0.7 g/dL Comment:recorded as 2 Glob Beta Globulin 0.4 g/dL Gamma Globulin in Serum 0.9 g/dL Beta 2 Globulin 0.3 g/dL Interpretation: Comment:No M Alban detected. Blood specimen (specimen) Venous blood / Unknown 02/28/2019 9:00 AM HEART SURGEON Narrative Chasidy Zelaya MA - 03/16/2019 10:57 AM HEART SURGEON As ordered Gurpreet Saguache [facility] CLIA#[id number] [address] [place] [address] Lavon Bazzi MD LAB BLOOD ORDERABLES Final [...] Armendariz MA - 06/17/2018 7:24 AM T GA Lavon Bazzi MD LAB URINE ORDERABLES Final [...] Armendariz MA - 06/17/2018 7:10 AM T GA Lavon Bazzi MD LAB BLOOD ORDERABLES Final [...] kidney documented in this encounter Care Teams Tank Tender Relationship Specialty Start Date End Date Sam Fay PCP - General Internal Medicine 06/07/18 documented as of this encounter
--- OUTSIDE RECORDS SUMMARY | 2025-01-19 04:45 | XMS_ITS | Encounter Summary ---
Author Organization [facility] Address [address] [facility] [address] [place] [address] Phone Care Team Providers Care Comb Tender Name Role Phone Sam Fay Primary Care Provider [phone] Encounter Details Date Type Department Care Team (Late st Contact Info) Description 10/09/2018 Orders Only [facility] [address] [place], [place] [address] Lavon Bazzi MD [address] [place] [address] [place] [address] Chronic kidney disease stage 3 [...] Ramirez LPN - 10/08/2018 4:58 PM CDT precinct police captain lab Dept. Of [place] [address] phone [phone] fax Lavon Bazzi MD LAB BLOOD ORDERABLES [...] procedure / Unknown 10/07/2018 9:00 AM CDT Rober Ramirezmy, CLAM BED WORKER - 10/08/2018 4:58 PM CDT precinct police captain lab Dept. Of [address] [address] phone [phone] fax Lavon Bazzi MD LAB URINE ORDERABLES [...] Baker LPN - 10/08/2018 4:58 PM CDT precinct police captain lab Dept. Of [address] [address] phone [phone] fax Lavon Bazzi MD LAB BLOOD ORDERABLES [...] 10/07/2018 9:00 AM CDT Narrative Suad Baker, CLAM BED WORKER - 10/08/2018 4:58 PM CDT precinct police captain lab Dept. Of [address] [address] phone [phone] fax Lavon Bazzi MD LAB BLOOD ORDERABLES Final Result documented in this encounter Visit Diagnoses Diagnosis Chronic kidney disease stage 3 (HCC) documented in this encounter Care Teams Comb Tender Relationship Specialty Start Date End Date Sam aFy PCP - General Internal Medicine 06/07/18 documented as of this encounter
--- OUTSIDE RECORDS SUMMARY | 2025-01-19 04:45 | XMS_ITS | Encounter Summary ---
Author Organization [facility] Address [address] [place] [address] [place] [address] Phone Care Team Providers Care Sock Lining Examiner Name Role Phone Sam Fay Primary Care Provider [phone] Encounter Details Date Type Department Care Team (Late st Contact Info) Description 03/23/2018 Orders Only [facility] [address] [place] [address] [place] [address] Social History Tobacco Use Types [...] on filedocumented in this encounter Care Teams Sock Lining Examiner Relationship Specialty Start Date End Date Sam Fay PCP - General Internal Medicine 06/07/18 documented as of this encounter
--- OUTSIDE RECORDS SUMMARY | 2025-01-19 04:46 | XMS_ITS | Encounter Summary ---
Author Organization [facility] Address [address] [place] [address] Care Team Providers Care Aircraft Refueller Name Role Phone Sam Fay MD Primary Care Provider [phone] Encounter Details Date Type Department Care Team (Late st Contact Info) Description 12/26/1999 Outpatient Historical [facility] Primary Care - [address] [place] [address] Massimo Piña, DO NO ADDRESS ON FILE Social History Tobacco Use Types Packs/Day Years Used Date Smoking Tobacco: Never Assessed Sex and Gender Information Value Date Recorded Sex Assigned at Not on file Legal Sex Male 8:53 PM FAMILY LITERACY COORDINATOR Gender Identity Not on file Sexual Orientation Not on file documented as of this encounter Plan of Treatment Upcoming Encounters Date Type Department Care Team (Late st Contact Info) Description 02/06/2025 10:30 AM FAMILY LITERACY COORDINATOR Appointment [facility] Imaging Services [address] [place] [address] Khloe Galvin NP [address] [address] 03/14/2025 11:30 AM FAMILY LITERACY COORDINATOR Office Visit [facility] Gastroenterology- [address] [address] Khloe Galvin NP [address] [place] [address] 03/22/2025 11:00 AM FAMILY LITERACY COORDINATOR Appointment [facility] MRI [address] [place] [address] Khloe Galvin NP [address] [place] [address] 06/26/2025 2:45 PM CDT Office Visit [facility] [address] [place] [address] Favio Polanco MD [address] [facility] [address] [place] [address] documented as of this encounter Visit Diagnoses Not on filedocumented in this encounter Additional Health Concerns Infection Onset Date Last Indicated Resolved Time R/O COVID-19 05/15/2024 05/15/2024 05/15/2024 1:12 PM CDT documented as of this encounter Care Teams Aircraft Refueller Relationship Specialty Start Date End Date Sam Fay MD PCP - General Emergency Medicine 12/22/18 documented as of this encounter
--- OUTSIDE RECORDS SUMMARY | 2025-01-19 04:46 | XMS_ITS | Encounter Summary ---
Author Organization [facility] Address [address] [place] [address] Care Team Providers Care Child Specialist Name Role Phone Sam Fay MD Primary Care Provider [phone] Encounter Details Date Type Department Care Team (Late st Contact Info) Description 03/12/2000 Outpatient Historical [facility] Primary Care - [address] [place] [address] Massimo Piña, DO NO ADDRESS ON FILE Social History Tobacco Use Types Packs/Day Years Used Date Smoking Tobacco: Never Assessed Sex and Gender Information Value Date Recorded Sex Assigned at Not on file Legal Sex Male 8:53 PM SENIOR BACK END JAVA DEVELOPER Gender Identity Not on file Sexual Orientation Not on file documented as of this encounter Plan of Treatment Upcoming Encounters Date Type Department Care Team (Late st Contact Info) Description 02/06/2025 10:30 AM SENIOR BACK END JAVA DEVELOPER Appointment [facility] Imaging Services [address] [place] [address] Khloe Galvin NP [address] [place] [address] 03/14/2025 11:30 AM SENIOR BACK END JAVA DEVELOPER Office Visit [facility] Gastroenterology- [address] [address] Khloe Galvin NP [address] [place] [address] 03/22/2025 11:00 AM SENIOR BACK END JAVA DEVELOPER Appointment [facility] MRI [address] [place] [address] Khloe Galvin NP [address] [place] [address] 06/26/2025 2:45 PM CDT Office Visit [facility] [address] [place] [address] Favio Polanco MD [address] [facility] [address] [place] [address] documented as of this encounter Visit Diagnoses Not on filedocumented in this encounter Additional Health Concerns Infection Onset Date Last Indicated Resolved Time R/O COVID-19 05/15/2024 05/15/2024 05/15/2024 1:12 PM CDT documented as of this encounter Care Teams Child Specialist Relationship Specialty Start Date End Date Sam Fay MD PCP - General Emergency Medicine 12/22/18 documented as of this encounter
--- OUTSIDE RECORDS SUMMARY | 2025-01-19 04:46 | XMS_ITS | Encounter Summary ---
Author Organization [facility] Address [address] [place] [address] Care Team Providers Care Fur Sewer Name Role Phone Sam Fay MD Primary Care Provider [phone] Encounter Details Date Type Department Care Team (Late st Contact Info) Description 06/26/2000 Outpatient Historical [facility] Primary Care - [address] [place] [address] Massimo Piña, DO NO ADDRESS ON FILE Social History Tobacco Use Types Packs/Day Years Used Date Smoking Tobacco: Never Assessed Sex and Gender Information Value Date Recorded Sex Assigned at Not on file Legal Sex Male 8:53 PM COPYIST Gender Identity Not on file Sexual Orientation Not on file documented as of this encounter Plan of Treatment Upcoming Encounters Date Type Department Care Team (Late st Contact Info) Description 02/06/2025 10:30 AM COPYIST Appointment [facility] Imaging Services [address] [place] [address] Khloe Galvin NP [address] [place] [address] 03/14/2025 11:30 AM COPYIST Office Visit [facility]3] Gastroenterology- [address] [address] Khloe Galvin NP [address] [place] [address] 03/22/2025 11:00 AM COPYIST Appointment [facility] MRI [address] [place] [address] Khloe Galvin NP [address] [place] [address] 06/26/2025 2:45 PM CDT Office Visit [facility] [address] [place] [address] Favio Polanco MD [address] [facility] [address] [place] [address] documented as of this encounter Visit Diagnoses Not on filedocumented in this encounter Additional Health Concerns Infection Onset Date Last Indicated Resolved Time R/O COVID-19 05/15/2024 05/15/2024 05/15/2024 1:12 PM CDT documented as of this encounter Care Teams Fur Sewer Relationship Specialty Start Date End Date Sam Fay MD PCP - General Emergency Medicine 12/22/18 documented as of this encounter
--- OUTSIDE RECORDS SUMMARY | 2025-01-19 04:46 | XMS_ITS | Clinical Summary ---
Author Organization [facility] Address [address] [place] [address] [address] Mayer ISIDRA [address] Phone Care Team Providers Care Insole Beveler Name Role Phone Sam Fay MD Primary Care Provider Allergies Active Allergy Reactions Criticality Noted Date Comments Lisinopril Rash Low 05/19/2018 Medications aspirin 81 mg capsule Take 81 mg by mouth daily. Active SENNA (SENOKOT PO) Take 2 Tabs by mouth 2 times daily. Active MULTIVITAMINS (MULTIVITAMIN PO) Take 1 Tab by mouth daily. Active omeprazole (PriLOSEC) 20 mg Capsule, Delayed Release(E.C.) Take 20 mg by mouth. Active acetaminophen (TYLENOL) 500 mg tablet Take 500 mg by mouth every 6 hours as needed. Active fluoride, sodium, (ETHEDENT) 1.1 % Cream [...] tablet Take 80 mg by mouth. 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 Dyslipidemia 03/05/2009 Elevated PSA 03/05/2009 Encounters Date Type Department Care Team Description 12/27/2024 External Device Data STL ABSTRACTION Provider, Abstract 12/20/2024 External Device Data STL ABSTRACTION Provider, Abstract 12/01/2024 8:30 AM CDT Office Visit [facility] [place] [address] [facility] [address] [place] [address] Khloe Galvin NP Pancreatic lesion (Primary Dx); Diverticulitis; Abnormal CT scan, gastrointestinal tract; Constipation, unspecified constipation type; Odynophagia; History of Marcelo esophagus 11/24/2024 Orders Only [address] [place] [address] Lena Orellana MD Disease of pancreas (Primary Dx) 11/15/2024 External Device Data STL ABSTRACTION Provider, Abstract 11/15/2024 External Device Data STL ABSTRACTION Provider, Abstract 11/01/2024 Telephone [facility] [address] [facility] [address] [place] [address] Favio Polanco MD refill 10/26/2024 External Device [...] on file Legal Sex Male 8:53 PM DIRECTOR RELIGIOUS EDUCATION Gender Identity Not on file Sexual Orientation Not on file Last Filed Vital Signs Vital Sign Reading Time Taken Comments Blood Pressure 129/76 12/01/2024 8:55 AM CDT Pulse 91 12/01/2024 8:55 AM CDT Temperature 36.2 C (97.2 F) 09/12/2024 7:59 AM CDT Respiratory Rate 18 09/12/2024 7:59 AM CDT Oxygen Saturation 97% 09/19/2024 9:47 AM CDT Inhaled Oxygen Concentration - - Weight 90.7 kg (200 lb) 12/01/2024 8:55 AM CDT Height 180.3 cm (5' 11 ) 12/01/2024 8:55 AM CDT Body Mass Index 27.89 12/01/2024 8:55 AM CDT Plan of Treatment Upcoming Encounters Date Type Department Care Team (Late st Contact Info) Description 02/06/2025 10:30 AM DIRECTOR RELIGIOUS EDUCATION Appointment [facility] Imaging Services [address] [place] [address] Khloe Galvin NP [address] [address] 03/14/2025 11:30 AM DIRECTOR RELIGIOUS EDUCATION Office Visit [facility] Gastroenterology- [place] [address] [address] Khloe Galvin NP [address] [address] 03/22/2025 11:00 AM DIRECTOR RELIGIOUS EDUCATION Appointment [facility] MRI [address] [place] [address] Khloe Galvin NP [address] [address] 06/26/2025 2:45 PM CDT Office Visit [facility] [address] [facility] [address] [place] [address] Favio Polanco MD [address] [facility] [address] [place] [address] Health Maintenance Due Date Last Done [...] Procedure Name Priority Date/Time Associated Diagnosis Comments CANCER ANTIGEN 19-9 Routine 12/01/2024 1 0:20 AM CDT Pancreatic lesion Abnormal CT scan, gastrointestinal tract COMPREHENSIVE METABOLIC PANEL Routine 12/01/2024 10:20 AM CDT Pancreatic lesion CBC WITH DIFFERENTIAL Routine 12/01/2024 10:20 AM CDT Pancreatic lesion LIPID RFLX Stat 05/15/2024 12:40 PM CDT HEMOGLOBIN A1C Stat 05/15/2024 12:40 PM CDT from Last 3 Months or Most Recently Relevant to Health Maintenance Results * CANCER ANTIGEN 19-9 (12/01/2024 10:20 AM CDT) CA 19-9 30 <34 U/mL [facility] Comment: This test was performed using the Siemens chemiluminescent method. Values obtained from different assay methods cannot be used interchangeably. CA 19-9 levels, regardless of value, should not be interpreted as absolute evidence of the presence or absence of disease. FASTING:YES FASTING: YES Test Performed at: [facility] [address] [place] [address] Carmen Lake MD Blood 12/01/2024 10:2 0 AM CDT 12/01/2024 10:20 AM CDT Khloe Galvin CRITICAL CARE UNIT NURSE CHEMISTRY ORDERABLES Final R esult [facility] [phone] [address] * CBC WITH DIFFERENTIAL (12/01/2024 10:20 AM CDT) WBC 9.6 3.8 - 10.8 Thousand/u L [facility] RBC 4.89 4.20 - 5.80 Million/uL [facility] HEMOGLOBIN 14.8 13.2 - 17.1 g/dL [facility] HEMATOCRIT 45.4 38.5 - 50.0 % [facility] MCV 92.8 80.0 - 100.0 fL [facility] MCH 30.3 27.0 - 33.0 pg [facility] MCHC 32.6 32.0 - 36.0 g/dL [facility] Comment: For adults, a slight decrease in the calculated MCHC value (in the range of 30 to 32 g/dL) is most likely not clinically significant; however, it should be interpreted with caution in correlation with other red cell parameters and the patient's clinical condition. RDW 14.2 11.0 - 15.0 % [facility] PLATELETS 194 140 - 400 Thousand/u L [facility] MPV 9.1 7.5 - 12.5 fL [facility] RR NEUTROPHIL ABSOLUTE 6,989 1,500 - 7,800 cells/uL [facility] RR LYMPHOCYTE ABSOLUTE 1,718 850 - 3,900 cells/uL [facility] RRL MONOCYTE ABSOLUTE 653 200 - 950 cells/uL [facility] RRL EOSINOPHIL ABSOLUTE 182 15 - 500 cells/uL [facility] RRL BASOPHILS ABSOLUTE 58 0 - 200 cells/uL [facility] RRL NEUTROPHIL 72.8 % [facility] RRL LYMPHOCYTES 17.9 % [facility] RRL MONOCYTE 6.8 % [facility] RRL EOSINOPHILS 1.9 % [facility] RRL BASOPHILS 0.6 % [facility] RRL Comment: FASTING:YES FASTING: YES Test Performed at: [facility] [address] [place] [address] Bebeto Bauer Blood 12/01/2024 10:2 0 AM CDT 12/01/2024 10:20 AM CDT Khloe Galvin NP HEMATOLOGY ORDERABLES Final Result [facility] [phone] [facility] [address] [place] [address] * (ABNORMAL) COMPREHENSIVE METABOLIC PANEL (12/01/2024 10:20 AM CDT) GLUCOSE 208(H) 65 - 99 mg/dL [facility] Comment: Fasting reference interval For someone without known diabetes, a glucose value >125 mg/dL indicates that they may have diabetes and this should be confirmed with a follow-up test. BUN 41(H) 7 - 25 mg/dL [facility] CREATININE 1.68(H) 0.70 - 1.22 mg/dL [facility] GFR 40(L) > OR = 60 mL/min/1.7 3m2 [facility] BUN/CREAT RATIO 24(H) 6 - 22 (calc) [facility] RR SODIUM 139 135 - 146 mmol/L [facility] POTASSIUM 5.2 3.5 - 5.3 mmol/L [facility] CHLORIDE 104 98 - 110 mmol/L [facility] RRL CO2 31 20 - 32 mmol/L [facility] RRL CALCIUM 10.3 8.6 - 10.3 mg/dL [facility] RRL TOTAL PROTEIN 6.8 6.1 - 8.1 g/dL [facility] RR ALBUMIN 4.1 3.6 - 5.1 g/dL [facility] RR GLOBULIN 2.7 1.9 - 3.7 g/dL (calc) [facility] RRL ALBUMIN/GLOBULIN RATIO 1.5 1.0 - 2.5 (calc) [facility] RR BILIRUBIN TOTAL 0.7 0.2 - 1.2 mg/dL [facility] RR ALKALINE PHOSPHATASE 105 35 - 144 U/L [facility] RR AST 12 10 - 35 U/L [facility] ALT 14 9 - 46 U/L [facility] RR Comment: FASTING:YES FASTING: YES Test Performed at: [facility] [address] [place] [address] Bebeto Bauer Blood 12/01/2024 10:2 0 AM CDT 12/01/2024 10:20 AM CDT us Khloe Galvin CRITICAL CARE UNIT NURSE CHEMISTRY ORDERABLES Final R esult [facility] [phone] [facility] [address] [place] [address] * (ABNORMAL) LIPID RFLX (05/15/2024 12:40 PM CDT) CHOLESTEROL 99 <200 mg/dL 05/15/2024 6:06 PM CDT [facility] TRIGLYCERIDE 92 <150 mg/dL 05/15/2024 6:06 PM CDT [facility] HDL 31(L) 40 - 59 mg/dL 05/15/2024 6:06 PM CDT [facility] LDL CALCULATED 50 <100 mg/dL 05/15/2024 6:06 PM CDT [facility] NON-HDL CHOLESTEROL 68 <130 mg/dL 05/15/2024 6:06 PM CDT [facility] Blood Venipuncture / Unknown 05/15/2024 12:40 PM CDT 05/15/2024 1:31 PM CDT [facility] - 05/15/2024 6:06 PM CDT TOTAL CHOLESTEROL [...] Mckoy MD CHEMISTRY ORDERABLES Final Re [facility] [id number] [address] [place] [address] * (ABNORMAL) HEMOGLOBIN A1C (05/15/2024 12:40 PM CDT) HEMOGLOBIN A1C 7.6(H) <=5.6 % 05/15/2024 1:43 PM CDT [facility] EST. AVG GLUCOSE, A1C 171 mg/dL 05/15/2024 1:43 PM CDT [facility] Blood Venipuncture / Unknown 05/15/2024 12:40 PM CDT 05/15/2024 12:49 PM CDT Narrative [facility] - 05/15/2024 1:43 PM CDT HGB A1C INTERPRETATION NORMAL: <5.7% PRE-DIABETES: 5.7 - 6.4% DIABETES: 6.5% OR GREATER Jannet Mckoy MD CHEMISTRY ORDERABLES Final Re sult [facility] CLIA # [id number] [address] [place] [phone] from Last 3 Months or Most Recently Relevant to Health Maintenance Insurance [employer] OPEN ACCESS MEDICARE PART A AND B Hyperpia Medicare Part D [facility] [employer] * Guarantor: [facility] Account Type Relation to Patient Date of Phone Billing Address Corporate Other DEFAULT ADDRESS [address] [employer] * Guarantor: [facility] Account Type Relation to Patient Date of Phone Billing Address Corporate Other DEFAULT ADDRESS [address] [employer] Advance Directives For more information, please contact: [phone] * Full Code (Latest Code Status on File) Date Activated Date Inactivated Comments 09/05/2024 2:40 PM 09/12/2024 3:00 PM Care Teams Insole Beveler Relationship Specialty Start Date End Date Sam Fay MD PCP - General Emergency Medicine 12/22/18
--- OUTSIDE RECORDS SUMMARY | 2025-01-19 04:46 | XMS_ITS | Encounter Summary ---
Author Organization [facility] Address [address] [place] [address] Care Team Providers Care Perforator Operator Oil Well Name Role Phone Sam Fay MD Primary Care Provider [phone] Encounter Details Date Type Department Care Team (Late st Contact Info) Description 10/11/1998 Outpatient Historical [facility] Primary Care - [address] [place] [address] Massimo Piña, DO NO ADDRESS ON FILE Social History Tobacco Use Types Packs/Day Years Used Date Smoking Tobacco: Never Assessed Sex and Gender Information Value Date Recorded Sex Assigned at Not on file Legal Sex Male 8:53 PM APPLE TURNER Gender Identity Not on file Sexual Orientation Not on file documented as of this encounter Plan of Treatment Upcoming Encounters Date Type Department Care Team (Late st Contact Info) Description 02/06/2025 10:30 AM APPLE TURNER Appointment [facility] Imaging Services [address] [place] [address] Khloe Galvin NP [address] [place] [address] 03/14/2025 11:30 AM APPLE TURNER Office Visit [facility] Gastroenterology- [address] [address] Khloe Galvin NP [address] [place] [address] 03/22/2025 11:00 AM APPLE TURNER Appointment [facility] MRI [address] [place] [address] Khloe Galvin NP [address] [place] [address] 06/26/2025 2:45 PM CDT Office Visit [facility] [address] [place] [address] Favio Polanco MD [address] [facility] [address] [place] [address] documented as of this encounter Visit Diagnoses Not on filedocumented in this encounter Additional Health Concerns Infection Onset Date Last Indicated Resolved Time R/O COVID-19 05/15/2024 05/15/2024 05/15/2024 1:12 PM CDT documented as of this encounter Care Teams Perforator Operator Oil Well Relationship Specialty Start Date End Date Sam Fay MD PCP - General Emergency Medicine 12/22/18 documented as of this encounter
--- OUTSIDE RECORDS SUMMARY | 2025-01-19 04:46 | XMS_ITS | Encounter Summary ---
Author Organization [facility] Address [address] [place] [address] Care Team Providers Care Sports Leadership Instructor Name Role Phone Sam Fay MD Primary Care Provider [phone] Encounter Details Date Type Department Care Team (Late st Contact Info) Description 05/03/2007 Outpatient Historical [facility] Primary Care - [address] [place] [address] Massimo Piña, DO NO ADDRESS ON FILE Social History Tobacco Use Types Packs/Day Years Used Date Smoking Tobacco: Never Assessed Sex and Gender Information Value Date Recorded Sex Assigned at Not on file Legal Sex Male 8:53 PM CERTIFIED REHABILITATION COUNSELOR Gender Identity Not on file Sexual Orientation Not on file documented as of this encounter Plan of Treatment Upcoming Encounters Date Type Department Care Team (Late st Contact Info) Description 02/06/2025 10:30 AM CERTIFIED REHABILITATION COUNSELOR Appointment [facility] Imaging Services [address] [place] [address] Khloe Galvin NP [address] [place] [address] 03/14/2025 11:30 AM CERTIFIED REHABILITATION COUNSELOR Office Visit [facility] Gastroenterology- [address] [address] Khloe Galvin NP [address] [place] [address] 03/22/2025 11:00 AM CERTIFIED REHABILITATION COUNSELOR Appointment [facility] MRI [address] [place] [address] Khloe Glavin NP [address] [place] [address] 06/26/2025 2:45 PM CDT Office Visit [facility] [address] [place] [address] Favio Polanco MD [address] [facility] [address] [place] [address] documented as of this encounter Visit Diagnoses Not on filedocumented in this encounter Additional Health Concerns Infection Onset Date Last Indicated Resolved Time R/O COVID-19 05/15/2024 05/15/2024 05/15/2024 1:12 PM CDT documented as of this encounter Care Teams Sports Leadership Instructor Relationship Specialty Start Date End Date Sam Fay MD PCP - General Emergency Medicine 12/22/18 documented as of this encounter
--- OUTSIDE RECORDS SUMMARY | 2025-01-19 04:46 | XMS_ITS | Encounter Summary ---
Author Organization [facility] Address [address] [place] [address] Care Team Providers Care Court Of Appeals Judge Name Role Phone Sam Fay MD Primary Care Provider [phone] Encounter Details Date Type Department Care Team (Late st Contact Info) Description 01/23/2000 Outpatient Historical [facility] Primary Care - [address] [place] [address] Massimo Piña, DO NO ADDRESS ON FILE Social History Tobacco Use Types Packs/Day Years Used Date Smoking Tobacco: Never Assessed Sex and Gender Information Value Date Recorded Sex Assigned at Not on file Legal Sex Male 8:53 PM DIRECTOR OF MOBILE MARKETING Gender Identity Not on file Sexual Orientation Not on file documented as of this encounter Plan of Treatment Upcoming Encounters Date Type Department Care Team (Late st Contact Info) Description 02/06/2025 10:30 AM DIRECTOR OF MOBILE MARKETING Appointment [facility] Imaging Services [address] [place] [address] Khloe Galvin NP [address] [address] 03/14/2025 11:30 AM DIRECTOR OF MOBILE MARKETING Office Visit [facility] Gastroenterology- [address] [address] Khloe Galvin NP [address] [place] [address] 03/22/2025 11:00 AM DIRECTOR OF MOBILE MARKETING Appointment [facility] MRI [address] [place] [address] Khloe Galvin NP [address] [place] [address] 06/26/2025 2:45 PM CDT Office Visit [facility] [address] [place] [address] Favio Polanco MD [address] [facility] [address] [place] [address] documented as of this encounter Visit Diagnoses Not on filedocumented in this encounter Additional Health Concerns Infection Onset Date Last Indicated Resolved Time R/O COVID-19 05/15/2024 05/15/2024 05/15/2024 1:12 PM CDT documented as of this encounter Care Teams Court Of Appeals Judge Relationship Specialty Start Date End Date Sam Fay MD PCP - General Emergency Medicine 12/22/18 documented as of this encounter
--- OUTSIDE RECORDS SUMMARY | 2025-01-19 04:46 | XMS_ITS | Clinical Summary ---
Author Organization [facility] Address [address] [place] [address] Care Team Providers Care Co Founder And Chairman Name Role Phone Sam Fay MD Primary [...] 09/27/2015 INFLUENZA VACCINE (#1) 2024 Care Teams Co Founder And Chairman Relationship Specialty Start Date End Date Sam Fay MD PCP - General Emergency Medicine 12/22/18
--- OUTSIDE RECORDS SUMMARY | 2025-01-19 04:46 | XMS_ITS | Encounter Summary ---
Author Organization [facility] Address [address] [place] [address] Care Team Providers Care Police Reserves Commander Name Role Phone Sam Fay MD Primary Care Provider [phone] Encounter Details Date Type Department Care Team (Late st Contact Info) Description 01/15/[address] [facility] Primary Care - [address] [place] [address] Massimo Piña, DO NO ADDRESS ON FILE Social History Tobacco Use Types Packs/Day Years Used Date Smoking Tobacco: Never Assessed Sex and Gender Information Value Date Recorded Sex Assigned at Not on file Legal Sex Male 8:53 PM ASSOCIATE MEDIA PLANNER Gender Identity Not on file Sexual Orientation Not on file documented as of this encounter Plan of Treatment Upcoming Encounters Date Type Department Care Team (Late st Contact Info) Description 02/06/2025 10:30 AM ASSOCIATE MEDIA PLANNER Appointment [facility] Imaging Services [address] [place] [address] Khloe Galvin NP [address] [place] [address] 03/14/2025 11:30 AM ASSOCIATE MEDIA PLANNER Office Visit [facility] Gastroenterology- [address] [address] Khloe Galvin NP [address] [place] [address] 03/22/2025 11:00 AM ASSOCIATE MEDIA PLANNER Appointment [facility] MRI [address] [place] [address] Khloe Galvin NP [address] [place] [address] 06/26/2025 2:45 PM CDT Office Visit [facility] [address] [place] [address] Favio Polanco MD [address] [facility] [address] [place] [address] documented as of this encounter Visit Diagnoses Not on filedocumented in this encounter Additional Health Concerns Infection Onset Date Last Indicated Resolved Time R/O COVID-19 05/15/2024 05/15/2024 05/15/2024 1:12 PM CDT documented as of this encounter Care Teams Police Reserves Commander Relationship Specialty Start Date End Date Sam Fay MD PCP - General Emergency Medicine 12/22/18 documented as of this encounter
--- OUTSIDE RECORDS SUMMARY | 2025-01-19 04:46 | XMS_ITS | Encounter Summary ---
Author Organization [facility] Address [address] [place] [address] Care Team Providers Care Terry Cloth Cutter Hand Name Role Phone Sam Fay MD Primary Care Provider [phone] Encounter Details Date Type Department Care Team (Late st Contact Info) Description 06/12/2001 Outpatient Historical [facility] Primary Care - [address] [place] [address] Massimo Piña, DO NO ADDRESS ON FILE Social History Tobacco Use Types Packs/Day Years Used Date Smoking Tobacco: Never Assessed Sex and Gender Information Value Date Recorded Sex Assigned at Not on file Legal Sex Male 8:53 PM ARCHIVES TECHNICIAN Gender Identity Not on file Sexual Orientation Not on file documented as of this encounter Plan of Treatment Upcoming Encounters Date Type Department Care Team (Late st Contact Info) Description 02/06/2025 10:30 AM ARCHIVES TECHNICIAN Appointment [facility] Imaging Services [address] [place] [address] Khloe Galvin NP [address] [place] [address] 03/14/2025 11:30 AM ARCHIVES TECHNICIAN Office Visit [facility] Gastroenterology- [address] [address] Khloe Galvin NP [address] [place] [address] 03/22/2025 11:00 AM ARCHIVES TECHNICIAN Appointment [facility] MRI [address] [place] [address] Khloe Galvin NP [address] [place] [address] 06/26/2025 2:45 PM CDT Office Visit [facility] [address] [place] [address] Favio Polanco MD [address] [facility] [address] [place] [address] documented as of this encounter Visit Diagnoses Not on filedocumented in this encounter Additional Health Concerns Infection Onset Date Last Indicated Resolved Time R/O COVID-19 05/15/2024 05/15/2024 05/15/2024 1:12 PM CDT documented as of this encounter Care Teams Terry Cloth Cutter Hand Relationship Specialty Start Date End Date Sam Fay MD PCP - General Emergency Medicine 12/22/18 documented as of this encounter
--- OUTSIDE RECORDS SUMMARY | 2025-01-19 04:46 | XMS_ITS | Encounter Summary ---
Author Organization [facility] Address [address] [facility] [address] [place] [address] Phone Care Team Providers Care Manager Dairy Name Role Phone Sam Fay Primary Care Provider [phone] Encounter Details Date Type Department Care Team (Late st Contact Info) Description 02/25/2019 Orders Only [facility] [address] [place] [address] Amy Hatch COKE PRODUCTION HEATER [address] [place] [address] [place] [address] Chronic kidney disease stage 3 [...] / CREATININE RATIO Routine 02/17/2019 1:30 PM GRAIN BLENDER Chronic kidney disease stage 3 (HCC) CBC Routine 02/17/2019 1:30 PM GRAIN BLENDER Chronic kidney disease stage 3 (HCC) PTH, INTACT Routine 02/17/2019 1:30 PM GRAIN BLENDER Chronic kidney disease stage 3 (HCC) RENAL FUNCTION PANEL Routine 02/17/2019 1:30 PM GRAIN BLENDER Chronic kidney disease stage 3 (HCC) documented in this encounter Results * (ABNORMAL) PTH, intact (02/17/2019 1:30 PM GRAIN BLENDER) Parathyroid Hormone, Intact 141.0(A) 18.1 - 88.5 pg/mL PRINT/EXTERNA L (NON-INTERFAC ED LABS) Blood specimen (specimen) Venous blood / Unknown 02/17/2019 1:30 PM GRAIN BLENDER Narrative PRINT/EXTERNAL (NON-INTERFACED LABS) - 02/21/2019 4:04 PM GRAIN BLENDER derrick boat captain lab [facility] Amy Hatch COKE PRODUCTION HEATER LAB BLOOD ORDERABLES Sujey l Result Performing Organization Address City/[facility]/ZIP Co de Phone Number PRINT/EXTERNAL (NON-INTERFACED LABS) * Urine albumin / creatinine ratio (02/17/2019 1:30 PM GRAIN BLENDER) Pathologist [facility] Urine Microalbumin 26.3 mg/dL PRINT/EXTERNA L (NON-INTERFAC ED LABS) Creatinine, Urine 198.22 mg/dL SC INT/EXTERNA L (NON-INTERFAC ED LABS) Protein, Ur 27.1 PRINT/EX TERNA L (NON-INTERFAC ED LABS) Urine specimen (specimen) Urine specimen obtained by clean catch procedure / Unknown 02/17/2019 1:30 PM GRAIN BLENDER Amy Hatch COKE PRODUCTION HEATER LAB URINE ORDERABLES Sujey l Result PRINT/EXTERNAL (NON-INTERFACED LABS) * CBC (02/17/2019 1:30 PM GRAIN BLENDER) WBC 8.7 K/uL PRINT/EXTE RNAL (NON-INTERFACE D [...] Venous blood / Unknown 02/17/2019 1:30 PM GRAIN BLENDER us Amy Hatch COKE PRODUCTION HEATER LAB BLOOD ORDERABLES Sujey veras Result PRINT/EXTERNAL (NON-INTERFACED LABS) * (ABNORMAL) Renal function panel (02/17/2019 1:30 PM GRAIN BLENDER) Albumin 3.9 3.5 - 5.0 g/dL PRINT/EXTERNA [...] Venous blood / Unknown 02/17/2019 1:30 PM GRAIN BLENDER us Amy Hatch COKE PRODUCTION HEATER LAB BLOOD ORDERABLES Sujey veras Result PRINT/EXTERNAL (NON-INTERFACED LABS) documented in this encounter Visit Diagnoses Diagnosis Chronic kidney disease stage 3 (HCC) documented in this encounter Care Teams Manager Dairy Relationship Specialty Start Date End Date Sam Fay PCP - General Internal Medicine 06/07/18 documented as of this encounter
--- OUTSIDE RECORDS SUMMARY | 2025-01-19 04:46 | XMS_ITS | Encounter Summary ---
Author Organization [facility] Address [address] [place] [address] Care Team Providers Care Rn Integrated Name Role Phone Sam Fay MD Primary Care Provider [phone] Encounter Details Date Type Department Care Team (Late st Contact Info) Description 12/07/2007 Outpatient Historical [facility] Massimo Frias DO NO ADDRESS ON FILE Cough Social History Tobacco Use Types Packs/Day Years Used Date Smoking Tobacco: Never Assessed Sex and Gender Information Value Date Recorded Sex Assigned at Not on file Legal Sex Male 8:53 PM SMOOTH STUCCO RESURFACER Gender Identity Not on file Sexual Orientation Not on file documented as of this encounter Plan of Treatment Upcoming Encounters Date Type Department Care Team (Late st Contact Info) Description 02/06/2025 10:30 AM SMOOTH STUCCO RESURFACER Appointment [facility] Imaging Services [facility] [place] [address] Khloe Galvin NP [facility] [address] 03/14/2025 11:30 AM SMOOTH STUCCO RESURFACER Office Visit [facility] Gastroenterology- [place] [address] [address] Khloe Galvin NP [address] [place] [address] 03/22/2025 11:00 AM SMOOTH STUCCO RESURFACER Appointment [facility] MRI [address] [place] [address] Khloe Galvin, BRIDGE BUILDER [address] [place] [address] 06/26/2025 2:45 PM CDT Office Visit [facility] [address] [place] [address] Favio Polanco MD [address] [place] [address] documented as of this encounter Procedures Procedure Name Priority Date/Time Associated Diagnosis Comments XR CHEST PA AND LATERAL 2 VW Routine 12/07/2007 10:52 AM CDT documented in this encounter Results * XR CHEST PA AND LATERAL (12/07/2007 10:52 AM CDT) Anatomical Region Laterality Modality Chest Other 12/07/2007 10:5 2 AM CDT Narrative 12/07/2007 11:42 AM CDT [facility] [address] [place], [place] [address] Admit Date: 12/07/2007 ESEQUIEL ARMENDARIZ Sex: M Admit Prov: MASSIMO FRIAS Date: 1940 Primary Care Prov: MASSIMO FRIAS CMRN: [id number] Room: [facility] SSN: [id number] IMAGING SERVICES Ordering Prov: N/A Accession Number: [id number] Interpretation CHEST 2 VIEWS, 12/07/2007 Clinical History: [...] Procedure Note Alina Alonso MD - 12/07/2007 [facility] [address] [place], [place] [address] Admit Date: 12/07/2007 ALBERTO ESEQUIEL [address] Sex: M Admit Prov: MASSIMO FRIAS Date: 1940 Primary Care Prov: MASSIMO FRIAS CMRN: [id number] Room: [facility] SSN: [id number] IMAGING SERVICES Ordering Prov: N/A Interpretation CHEST [...] ALINA ALONSO12/07/2007 11:41 Transcribed: 12/07/2007 10:58 [facility] Massimo Frias DO DIAGNOSTIC IMAGING ORDERABL ES Final Result documented in this encounter Visit Diagnoses Diagnosis Cough documented in this encounter Additional Health Concerns Infection Onset Date Last Indicated Resolved Time R/O COVID-19 05/15/2024 05/15/2024 05/15/2024 1:12 PM CDT documented as of this encounter Care Teams Rn Integrated Relationship Specialty Start Date End Date Sam Fay MD PCP - General Emergency Medicine 12/22/18 documented as of this encounter
--- OUTSIDE RECORDS SUMMARY | 2025-01-19 04:46 | XMS_ITS | Encounter Summary ---
Author Name [facility] Organization [facility] [facility] [place] Address [address] [place] [address] Care Team Providers Care Door Installer Name Role Phone NAMITAROLANDOE Primary Care Provider Unavailabl e Insurance Providers: [...] PART B Aug 07, 2008 PART B [id number] MIMA DOMINGUEZ ERT PATIENT MEDICARE (WNR) MEDICARE (M) PART B Aug 07, 2008 PART B [id number] MIMA DOMINGUEZ ERT PATIENT MEDICARE (WNR) MEDICARE (M) PART A Sep 06, 2005 PART A [id number] MIMA DOMINGUEZ ERT PATIENT MEDICARE (WNR) MEDICARE (M) PART A Sep 06, 2005 PART A [id number] MIMA DOMINGUEZ ERT PATIENT MEDICARE PART D (WNR) MEDICARE (M) PART D Apr 09, 2010 PART D [id number] [phone] MIMA DOMINGUEZ ERT PATIENT [employer] [place] PL[employer] N PLAN N July 08, 2019 PLANN [id number] [phone] MIMA DOMINGUEZ PATIENT Selected Encounter This section includes the information on record at [place] for the Encounter. Date/Time Encounter Type Encounter Description Reason Pro vider Source IHE Encounter Template Text not used by [place] Advance Directives: All historical and current Section Date Range: From patient's date of to the date document was created. This section includes ALL of a patient's completed or amended [place] Advance and Rescinded Directives. The entries below indicate that a directive exists for the patient, but an actual copy is not included with this document. The data comes from all [place] facilities. Date Advance Directives Provider Source Mar 13, 2020 ADVANCE DIRECTIVE BIBI DUFF FF [facility] Mar 13, 2020 CLINICAL WARNING BIBI DUFF F [facility] Aug 19, 2010 ADVANCE DIRECTIVE JESUS AGUERO V [facility] Aug 19, 2010 ADVANCE DIRECTIVE DISCUSSION ABRAHAM BENAVIDES [facility]
--- OUTSIDE RECORDS SUMMARY | 2025-01-19 04:46 | XMS_ITS | Encounter Summary ---
Author Organization [facility] Address [address] [place] [address] Care Team Providers Care Software Quality Assurance Engineer Name Role Phone Sam Fay MD Primary Care Provider [phone] Encounter Details Date Type Department Care Team (Late st Contact Info) Description 03/10/2002 Outpatient Historical [facility] Primary Care - [address] [place] [address] Massimo Piña, DO NO ADDRESS ON FILE Social History Tobacco Use Types Packs/Day Years Used Date Smoking Tobacco: Never Assessed Sex and Gender Information Value Date Recorded Sex Assigned at Not on file Legal Sex Male 8:53 PM PRODUCTION GRIP Gender Identity Not on file Sexual Orientation Not on file documented as of this encounter Plan of Treatment Upcoming Encounters Date Type Department Care Team (Late st Contact Info) Description 02/06/2025 10:30 AM PRODUCTION GRIP Appointment [facility] Imaging Services [address] [place] [address] Khloe Galvin NP [address] [place] [address] 03/14/2025 11:30 AM PRODUCTION GRIP Office Visit [facility] Gastroenterology- [address] [address] Khloe Galvin NP [address] [place] [address] 03/22/2025 11:00 AM PRODUCTION GRIP Appointment [facility] MRI [address] [place] [address] Khloe Galvin NP [address] [place] [address] 06/26/2025 2:45 PM CDT Office Visit [facility] [address] [place] [address] Favio Polanco MD [address] [facility] [address] [place] [address] documented as of this encounter Visit Diagnoses Not on filedocumented in this encounter Additional Health Concerns Infection Onset Date Last Indicated Resolved Time R/O COVID-19 05/15/2024 05/15/2024 05/15/2024 1:12 PM CDT documented as of this encounter Care Teams Software Quality Assurance Engineer Relationship Specialty Start Date End Date Sam Fay MD PCP - General Emergency Medicine 12/22/18 documented as of this encounter
--- OUTSIDE RECORDS SUMMARY | 2025-01-19 04:46 | XMS_ITS | Encounter Summary ---
Author Organization [facility] Address [address] [place] [address] Care Team Providers Care Manager Wealth Management Name Role Phone Sam Fay MD Primary Care Provider [phone] Encounter Details Date Type Department Care Team (Late st Contact Info) Description 12/02/2001 Outpatient Historical [facility] Primary Care - [address] [place] [address] Massimo Piña, DO NO ADDRESS ON FILE Social History Tobacco Use Types Packs/Day Years Used Date Smoking Tobacco: Never Assessed Sex and Gender Information Value Date Recorded Sex Assigned at Not on file Legal Sex Male 8:53 PM RESEARCH PHYSICIAN Gender Identity Not on file Sexual Orientation Not on file documented as of this encounter Plan of Treatment Upcoming Encounters Date Type Department Care Team (Late st Contact Info) Description 02/06/2025 10:30 AM RESEARCH PHYSICIAN Appointment [facility] Imaging Services [address] [place] [address] Khloe Galvin NP [address] [place] [address] 03/14/2025 11:30 AM RESEARCH PHYSICIAN Office Visit [facility] Gastroenterology- [address] [address] Khloe Galvin NP [address] [place] [address] 03/22/2025 11:00 AM RESEARCH PHYSICIAN Appointment [facility] MRI [address] [place] [address] Khloe Galvin NP [address] [place] [address] 06/26/2025 2:45 PM CDT Office Visit [facility] [address] [place] [address] Favio Polanco MD [address] [facility] [address] [place] [address] documented as of this encounter Visit Diagnoses Not on filedocumented in this encounter Additional Health Concerns Infection Onset Date Last Indicated Resolved Time R/O COVID-19 05/15/2024 05/15/2024 05/15/2024 1:12 PM CDT documented as of this encounter Care Teams Manager Wealth Management Relationship Specialty Start Date End Date Sam Fay MD PCP - General Emergency Medicine 12/22/18 documented as of this encounter
--- OUTSIDE RECORDS SUMMARY | 2025-01-19 04:46 | XMS_ITS | Encounter Summary ---
Author Organization [facility] Address [address] [place] [address] Care Team Providers Care Rod Puller Name Role Phone Sam Fay MD Primary Care Provider [phone] Encounter Details Date Type Department Care Team (Late st Contact Info) Description 01/16/1998 Outpatient Historical [facility] Primary Care - [address] [place] [address] Massimo Piña, DO NO ADDRESS ON FILE Social History Tobacco Use Types Packs/Day Years Used Date Smoking Tobacco: Never Assessed Sex and Gender Information Value Date Recorded Sex Assigned at Not on file Legal Sex Male 8:53 PM MULTIPLE PRESSURE RIVETER OPERATOR Gender Identity Not on file Sexual Orientation Not on file documented as of this encounter Plan of Treatment Upcoming Encounters Date Type Department Care Team (Late st Contact Info) Description 02/06/2025 10:30 AM MULTIPLE PRESSURE RIVETER OPERATOR Appointment [facility] Imaging Services [address] [place] [address] Khloe Galvin NP [address] [place] [address] 03/14/2025 11:30 AM MULTIPLE PRESSURE RIVETER OPERATOR Office Visit [facility] Gastroenterology- [address] [address] Khloe Galvin NP [address] [place] [address] 03/22/2025 11:00 AM MULTIPLE PRESSURE RIVETER OPERATOR Appointment [facility] MRI [address] [place] [address] Khloe Galvin NP [address] [place] [address] 06/26/2025 2:45 PM CDT Office Visit [facility] [address] [place] [address] Favio Polanco MD [address] [facility] [address] [place] [address] documented as of this encounter Visit Diagnoses Not on filedocumented in this encounter Additional Health Concerns Infection Onset Date Last Indicated Resolved Time R/O COVID-19 05/15/2024 05/15/2024 05/15/2024 1:12 PM CDT documented as of this encounter Care Teams Rod Puller Relationship Specialty Start Date End Date Sam Fay MD PCP - General Emergency Medicine 12/22/18 documented as of this encounter
--- OUTSIDE RECORDS SUMMARY | 2025-01-19 04:46 | XMS_ITS | Encounter Summary ---
Author Organization [facility] Address [address] [place] [address] Care Team Providers Care Hospital Liaison Name Role Phone Sam Fay MD Primary Care Provider [phone] Encounter Details Date Type Department Care Team (Late st Contact Info) Description 01/09/2000 Outpatient Historical [facility] Primary Care - [address] [place] [address] Massimo Piña, DO NO ADDRESS ON FILE Social History Tobacco Use Types Packs/Day Years Used Date Smoking Tobacco: Never Assessed Sex and Gender Information Value Date Recorded Sex Assigned at Not on file Legal Sex Male 8:53 PM SOLUTION MIXER Gender Identity Not on file Sexual Orientation Not on file documented as of this encounter Plan of Treatment Upcoming Encounters Date Type Department Care Team (Late st Contact Info) Description 02/06/2025 10:30 AM SOLUTION MIXER Appointment [facility] Imaging Services [address] [place] [address] Khloe Galvin NP [address] [address] 03/14/2025 11:30 AM SOLUTION MIXER Office Visit [facility] Gastroenterology- [address] [address] Khloe Galvin NP [address] [place] [address] 03/22/2025 11:00 AM SOLUTION MIXER Appointment [facility] MRI [address] [place] [address] Khloe Galvin NP [address] [place] [address] 06/26/2025 2:45 PM CDT Office Visit [facility] [address] [place] [address] Favio Polanco MD [address] [facility] [address] [place] [address] documented as of this encounter Visit Diagnoses Not on filedocumented in this encounter Additional Health Concerns Infection Onset Date Last Indicated Resolved Time R/O COVID-19 05/15/2024 05/15/2024 05/15/2024 1:12 PM CDT documented as of this encounter Care Teams Hospital Liaison Relationship Specialty Start Date End Date Sam Fay MD PCP - General Emergency Medicine 12/22/18 documented as of this encounter
--- OUTSIDE RECORDS SUMMARY | 2025-01-19 04:46 | XMS_ITS | Encounter Summary ---
Author Organization [facility] Address [address] [place] [address] Care Team Providers Care Motorcycle Mechanic Apprentice Name Role Phone Sam Fay MD Primary Care Provider [phone] Encounter Details Date Type Department Care Team (Late st Contact Info) Description 08/06/2004 Outpatient Historical [facility] Primary Care - [address] [place] [address] Massimo Piña, DO NO ADDRESS ON FILE Social History Tobacco Use Types Packs/Day Years Used Date Smoking Tobacco: Never Assessed Sex and Gender Information Value Date Recorded Sex Assigned at Not on file Legal Sex Male 8:53 PM WEATHER OBSERVER Gender Identity Not on file Sexual Orientation Not on file documented as of this encounter Plan of Treatment Upcoming Encounters Date Type Department Care Team (Late st Contact Info) Description 02/06/2025 10:30 AM WEATHER OBSERVER Appointment [facility] Imaging Services [address] [place] [address] Khloe Galvin NP [address] [place] [address] 03/14/2025 11:30 AM WEATHER OBSERVER Office Visit [facility] Gastroenterology- [address] [address] Khloe Galvin NP [address] [place] [address] 03/22/2025 11:00 AM WEATHER OBSERVER Appointment [facility] [address] [place] [address] Khloe Galvin NP [address] [place] [address] 06/26/2025 2:45 PM CDT Office Visit [facility] [address] [place] [address] Favio Polanco MD [address] [facility] [address] [place] [address] documented as of this encounter Visit Diagnoses Not on filedocumented in this encounter Additional Health Concerns Infection Onset Date Last Indicated Resolved Time R/O COVID-19 05/15/2024 05/15/2024 05/15/2024 1:12 PM CDT documented as of this encounter Care Teams Motorcycle Mechanic Apprentice Relationship Specialty Start Date End Date Sam Fay MD PCP - General Emergency Medicine 12/22/18 documented as of this encounter
--- OUTSIDE RECORDS SUMMARY | 2025-01-19 04:46 | XMS_ITS | Encounter Summary ---
Author Organization [facility] Address [address] [place] [address] Care Team Providers Care Financial Reporting Analyst Name Role Phone Sam Fay MD Primary Care Provider [phone] Encounter Details Date Type Department Care Team (Late st Contact Info) Description 12/03/1999 Outpatient Historical [facility] Primary Care - [address] [place] [address] Massimo Piña, DO NO ADDRESS ON FILE Social History Tobacco Use Types Packs/Day Years Used Date Smoking Tobacco: Never Assessed Sex and Gender Information Value Date Recorded Sex Assigned at Not on file Legal Sex Male 8:53 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 Gender Identity Not on file Sexual Orientation Not on file documented as of this encounter Plan of Treatment Upcoming Encounters Date Type Department Care Team (Late st Contact Info) Description 02/06/2025 10:30 AM FREEZER TUNNEL OPERATOR Appointment [facility] Services [address] [place] [address] Khloe Galvin NP [address] [address] 03/14/2025 11:30 AM FREEZER TUNNEL OPERATOR Office Visit [facility]3] Gastroenterology- [address] [address] Khloe Galvin NP [address] [place] [address] 03/22/2025 11:00 AM FREEZER TUNNEL OPERATOR Appointment [facility] [address] [place] [address] Khloe Galvin NP [address] [place] [address] 06/26/2025 2:45 PM CDT Office Visit [facility] [address] [place] [address] Favio Polanco MD [address] [facility] [address] [place] [address] documented as of this encounter Visit Diagnoses Not on filedocumented in this encounter Additional Health Concerns Infection Onset Date Last Indicated Resolved Time R/O COVID-19 05/15/2024 05/15/2024 05/15/2024 1:12 PM CDT documented as of this encounter Care Teams Financial Reporting Analyst Relationship Specialty Start Date End Date Sam Fay MD PCP - General Emergency Medicine 12/22/18 documented as of this encounter
--- OUTSIDE RECORDS SUMMARY | 2025-01-19 04:46 | XMS_ITS | Encounter Summary ---
Author Organization [facility] Address [address] [place] [address] Care Team Providers Care Psych Social Worker Name Role Phone Sam Fay MD Primary Care Provider [phone] Encounter Details Date Type Department Care Team (Late st Contact Info) Description 05/03/2007 Outpatient Historical [facility] Primary Care - [address] [place] [address] Massimo Piña, DO NO ADDRESS ON FILE Social History Tobacco Use Types Packs/Day Years Used Date Smoking Tobacco: Never Assessed Sex and Gender Information Value Date Recorded Sex Assigned at Not on file Legal Sex Male 8:53 PM SOLUTIONS EXECUTIVE SECURITY Gender Identity Not on file Sexual Orientation Not on file documented as of this encounter Plan of Treatment Upcoming Encounters Date Type Department Care Team (Late st Contact Info) Description 02/06/2025 10:30 AM SOLUTIONS EXECUTIVE SECURITY Appointment [facility] Imaging Services [address] [place] [address] Khloe Galvin NP [address] [place] [address] 03/14/2025 11:30 AM SOLUTIONS EXECUTIVE SECURITY Office Visit [facility] Gastroenterology- [address] [address] Khloe Galvin NP [address] [place] [address] 03/22/2025 11:00 AM SOLUTIONS EXECUTIVE SECURITY Appointment [facility] MRI [address] [place] [address] Khloe Galvin NP [address] [place] [address] 06/26/2025 2:45 PM CDT Office Visit [facility] [address] [place] [address] Favio Polanco MD [address] [facility] [address] [place] [address] documented as of this encounter Visit Diagnoses Not on filedocumented in this encounter Additional Health Concerns Infection Onset Date Last Indicated Resolved Time R/O COVID-19 05/15/2024 05/15/2024 05/15/2024 1:12 PM CDT documented as of this encounter Care Teams Psych Social Worker Relationship Specialty Start Date End Date Sam Fay MD PCP - General Emergency Medicine 12/22/18 documented as of this encounter
--- OUTSIDE RECORDS SUMMARY | 2025-01-19 04:46 | XMS_ITS | Encounter Summary ---
Author Organization [facility] Address 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 Imaging Services [address] [place] [address] Khloe Galvin NP [address] [address] 03/14/2025 11:30 AM CARDIAC REHABILITATION PROGRAM DIRECTOR Office Visit [facility] Gastroenterology- [address] [address] Khloe Galvin NP [address] [place] [address] 03/22/2025 11:00 AM CARDIAC REHABILITATION PROGRAM DIRECTOR Appointment [facility] MRI [address] [place] [address] Khloe Galvin NP [address] [place] [address] 06/26/2025 2:45 PM CDT Office Visit [facility] [address] [place] [address] Favio Polanco MD [address] [facility] [address] [place] [address] documented as of this encounter Visit Diagnoses Not on filedocumented in this encounter Additional Health Concerns Infection Onset Date Last Indicated Resolved Time R/O COVID-19 05/15/2024 05/15/2024 05/15/2024 1:12 PM CDT documented as of this encounter Care Teams Broke Man Relationship Specialty Start Date End Date Sam Fay MD PCP - General Emergency Medicine 12/22/18 documented as of this encounter
--- OUTSIDE RECORDS SUMMARY | 2025-01-19 04:46 | XMS_ITS | Clinical Summary ---
Author Organization [facility] [employer] Address [address] [place] [address] Phone Care Team Providers Care Respiratory Care Specialist Name Role Phone Sam Fay Primary Care Provider [phone] Allergies Active Allergy Reactions Criticality Noted Date [...] 0 Q uit: 1970 Smokeless Tobacco: Never Tobacco [...] (EXTERNAL RESULT ENTRY) Routine 02/06/2020 10:55 AM LIFEGUARD from Last 3 Months or Most Recently Relevant to Health Maintenance Results * Hemoglobin A1C (02/06/2020 10:55 AM LIFEGUARD) Hemoglobin A1C 7.0 Blood specimen (specimen) Venous blood / Unknown 02/06/2020 10:55 AM LIFEGUARD Sam Fay LAB BLOOD ORDERABLES Final Resu lt from Last 3 Months or Most Recently Relevant to Health Maintenance Insurance [facility] Regions 1,2,3 ([employer]) Care Teams Respiratory Care Specialist Relationship Specialty Start Date End Date Sam Fay PCP - General Internal Medicine 06/07/18
--- OUTSIDE RECORDS SUMMARY | 2025-01-19 04:46 | XMS_ITS | Encounter Summary ---
Author Organization [facility] Address [address] [place] [address] Care Team Providers Care Psychiatric Nursing Assistant Name Role Phone Sam Fay MD Primary Care Provider [phone] Encounter Details Date Type Department Care Team (Late st Contact Info) Description 08/13/2004 Outpatient Historical [facility] Primary Care - [address] [place] [address] Massimo Piña, DO NO ADDRESS ON FILE Social History Tobacco Use Types Packs/Day Years Used Date Smoking Tobacco: Never Assessed Sex and Gender Information Value Date Recorded Sex Assigned at Not on file Legal Sex Male 8:53 PM MANAGER ACQUISITION Gender Identity Not on file Sexual Orientation Not on file documented as of this encounter Plan of Treatment Upcoming Encounters Date Type Department Care Team (Late st Contact Info) Description 02/06/2025 10:30 AM MANAGER ACQUISITION Appointment [facility] Imaging Services [address] [place] [address] Khloe Galvin NP [address] [place] [address] 03/14/2025 11:30 AM MANAGER ACQUISITION Office Visit [facility] Gastroenterology- [address] [address] Khloe Galvin NP [address] [place] [address] 03/22/2025 11:00 AM MANAGER ACQUISITION Appointment [facility] MRI [address] [place] [address] Khloe Galvin NP [address] [place] [address] 06/26/2025 2:45 PM CDT Office Visit [facility] [address] [place] [address] Favio Polanco MD [address] [facility] [address] [place] [address] documented as of this encounter Visit Diagnoses Not on filedocumented in this encounter Additional Health Concerns Infection Onset Date Last Indicated Resolved Time R/O COVID-19 05/15/2024 05/15/2024 05/15/2024 1:12 PM CDT documented as of this encounter Care Teams Psychiatric Nursing Assistant Relationship Specialty Start Date End Date Sam Fay MD PCP - General Emergency Medicine 12/22/18 documented as of this encounter
--- NOTE | 2025-01-19 05:01 | CTR_ITS ---
PROCEDURE INFORMATION: Exam: CT Head Without Contrast Exam date and time: 01/19/2025 5:17 AM Age: 84 years old Clinical indication: Injury or trauma; Fall; Concussion/head injury; Without loss of consciousness; Additional info: Fall/ blood thinner TECHNIQUE: Imaging protocol: Computed tomography of the head without contrast. Radiation optimization: All CT scans at this facility use at least one of these dose optimization techniques: automated exposure control; mA and/or kV adjustment per patient size (includes targeted exams where dose is matched to clinical indication); or iterative reconstruction. COMPARISON: CT head wo con* [id number] 12/26/2023 5:26 PM RADIATION DOSE METRICS: Total DLP (mGy-cm): 1252.58 FINDINGS: Brain: No hemorrhage. Periventricular white matter lucency represents atherosclerotic encephalopathic changes. Cerebral ventricles: No ventriculomegaly. Ventricular prominence proportionate to the degree of atrophy observed. Paranasal sinuses: Visualized sinuses are unremarkable. No fluid levels. Mastoid air cells: Visualized mastoid air cells are well aerated. Bones: Unremarkable. No acute fracture. Soft tissues: Unremarkable. Other findings: No mass effect. CT/CT head wo con* [id number] IMPRESSION: No acute intracranial abnormality.
--- NOTE | 2025-01-19 05:01 | XRR_ITS ---
PROCEDURE INFORMATION: Exam: XR Left Knee Exam date and time: 01/19/2025 5:30 AM Age: 84 years old Clinical indication: Injury or trauma; Fall; Blunt trauma; Knee; Bilateral; Additional info: Fall/pain TECHNIQUE: Imaging protocol: Radiologic exam of the left knee. Views: 3 views. COMPARISON: No relevant prior studies available. FINDINGS: Bones/joints: Marked medial compartment narrowing. Mild tricompartment spurring. No fracture or dislocation. No acute osseous or joint abnormality. Soft tissues: Normal. Vascular calcifications. XR/XR knee LT 3V* [id number] IMPRESSION: No acute findings.
--- NOTE | 2025-01-19 05:01 | XRR_ITS ---
PROCEDURE INFORMATION: Exam: XR Chest Exam date and time: 01/19/2025 5:28 AM Age: 84 years old Clinical indication: Injury or trauma; Fall; Blunt trauma (contusions or hematomas); Additional info: Fall/crackes in bases TECHNIQUE: Imaging protocol: Radiologic exam of the chest. Views: 1 view. COMPARISON: CR XR chest 1V portable [id number] 07/25/2024 1:05 AM FINDINGS: Tubes, catheters and devices: Median sternotomy suture wires. Loop recorder over the left chest. Lungs: Unremarkable. No consolidation. Pleural spaces: Unremarkable. No pleural effusion. No pneumothorax. Heart/Mediastinum: Unremarkable. No cardiomegaly. Bones/joints: Unremarkable. XR/XR chest 1V portable [id number] IMPRESSION: No acute findings.
--- NOTE | 2025-01-19 05:01 | XRR_ITS ---
PROCEDURE INFORMATION: Exam: XR Right Knee Exam date and time: 01/19/2025 5:35 AM Age: 84 years old Clinical indication: Pain; Knee; Bilateral; Additional info: Fall/pain TECHNIQUE: Imaging protocol: Radiologic exam of the right knee. Views: 3 views. COMPARISON: CR XR knee RT 3V* [id number] 04/14/2024 9:20 PM FINDINGS: Bones/joints: Marked medial compartment narrowing. Mild tricompartment spurring. Prior surgery to the soft tissues. Arterial calcifications. No fracture or dislocation. Soft tissues: Normal. XR/XR knee RT 3V* [id number] IMPRESSION: No acute findings.
[2025-01-19 05:08] LABS: Hematocrit 44.9 % (37-53); Hemoglobin 14.70 g/dL (11.27-16.99); Mean Corpuscular HGB Conc 32.7 g/dL (30-55); Mean Corpuscular Hemoglobin 30.2 pg (27-33); Mean Corpuscular Volume 92.4 fl (82-101); Nucleated Red Blood Cells % 0 %; Platelet Count 142 10^3/cmm (157-399); Red Blood Count 4.86 10^6/uL (3.85-5.65); White Blood Count 8.12 10^3/uL (3.29-11.43)
[2025-01-19 05:21] LABS: Alanine Aminotransferase 13 U/L (0-41); Albumin Level 3.8 g/dL (3.5-5.2); Alkaline Phosphatase 93 U/L (40-130); Anion Gap 16.6 (5-19); Aspartate Amino Transferase 11 U/L (0-40); Blood Urea Nitrogen 46 mg/dL (8-23); Calcium 9.6 mg/dL (8.5-10.5); Carbon Dioxide 23 mmol/L (22-29); Chloride 103 mmol/L (98-107); Globulin 2.6 g/dL (1.3-4.6); Glucose 193 mg/dL (65-115); Osmolality Calculated 303 mOsm/kg (285-295); Potassium 4.6 mmol/L (3.5-5.1); Sodium 138 mmol/L (136-145); Total Protein 6.4 g/dL (6.6-8.7)
--- NOTE | 2025-01-19 05:21 | W.ED.FALL ---
HPI - Fall General: Chief Complaint: Fall Stated Complaint: fall- bilateral knee pain Time Seen by Provider: 01/19/25 04:48 History of Present Illness: Patient is an 84-year-old male with a history of atrial fibrillation, COPD on 4 L at baseline, diabetes, high blood pressure, CHF and coronary artery disease presents from home after fall. Patient states he was sitting on the edge of his bed, was leaning forward to reach something from the table, lost his balance and fell forward. Fall not a/w chest pain, lightheadedness, dizziness, shortness of breath, syncope. Patient states that he does not recall if he lost consciousness but he hit his left forehead. Patient denies new neck pain or back pain. He denies new shortness of breath, he is comfortable at baseline 4 L of O2. He denies current chest pain. He states that he has not had a fever. Patient states that he has been eating and drinking normally, no abdominal pain, nausea, vomiting, diarrhea or dysuria. Patient is also complaining of bilateral knee pain. He landed on his knees, then hit his forehead. Patient is able to answer orientation questions though he does have memantine in his medication list, questionable history. Related Data Home Medications ?Medication ?Instructions ?Recorded ?Confirmed atorvastatin 80 mg tablet 80 mg PO QPM 03/31/19 07/30/23 calcium polycarbophil 625 mg tablet 1,250 mg PO DAILY 03/31/19 07/30/23 magnesium oxide 400 mg (241.3 mg 400 mg PO BID 03/31/19 07/30/23 magnesium) tablet (MagOx) omeprazole 20 mg tablet,delayed 20 mg PO BID 03/31/19 07/30/23 release cholecalciferol (vitamin D3) 50 2,000 unit PO QPM 02/14/20 07/30/23 mcg (2,000 unit) tablet (Vitamin D3) aspirin 81 mg tablet,delayed 81 mg PO BEDTIME 07/20/20 07/30/23 release finasteride 5 mg tablet 5 mg PO QPM 07/20/20 07/30/23 duloxetine 20 mg capsule,delayed 40 mg PO DAILY 09/05/22 07/30/23 release memantine 5 mg tablet 5 mg PO BID 09/05/22 07/30/23 semaglutide 0.25 mg or 0.5 mg (2 0.5 mg SUBCUT Q7D 09/05/22 07/30/23 mg/3 mL) subcutaneous pen injector (Ozempic) buspirone 10 mg tablet 5 mg PO TID 04/14/23 07/30/23 pyridoxine (vitamin B6) 100 mg 100 mg PO QAM 04/14/23 07/30/23 tablet (Vitamin B-6) vitamin B complex 2 tab PO QAM 04/14/23 07/30/23 acetaminophen 500 mg tablet 500 mg PO QID PRN Pain 07/09/23 07/30/23 carvedilol 3.125 mg tablet 3.125 mg PO BID 07/09/23 07/30/23 fluoride (sodium) 1.1 % dental 1 applic dental DAILY 07/09/23 07/30/23 cream (Sodium Fluoride 5000 Plus) furosemide 40 mg tablet 40 mg PO QAM PRN Edema 07/09/23 07/30/23 midodrine 10 mg tablet 10 mg PO TID PRN LOW BLOOD 07/09/23 07/30/23 omega 8-cir-glm-fish oil 1,000 mg 1 cap PO BID 07/09/23 07/30/23 (120 mg-180 mg) capsule (Fish Oil) potassium chloride 20 mEq 20 meq PO DAILY PRN with lasix 07/09/23 07/30/23 tablet,extended release(part/cryst) insulin glargine 100 unit/mL 20 unit SUBCUT BEDTIME 07/30/23 07/30/23 subcutaneous solution (Lantus U-100 Insulin) Previous Rx's ?Medication ?Instructions ?Recorded tamsulosin 0.4 mg capsule 0.4 mg PO BID #180 caps 09/27/20 albuterol sulfate 90 mcg/actuation 2 inh inhalation Q4H PRN shortness 04/04/23 aerosol inhaler of breath or wheezing #6.7 grams diabetic shoes with 3 inserts #1 ea 05/29/23 apixaban 5 mg tablet (Eliquis) See Rx Instructions .Route 08/05/23 .COMPLEX #90 tabs Allergies Allergy/AdvReac Type Severity Reaction Status Date / Time lisinopril Allergy ALGY-Rash Verified 11/20/23 13:54 [facility] ED PFSH: Medical History (Updated 01/19/25 @ 06:24 by Bailee Peres MD) Depression Chronic kidney disease Hyperlipidemia Atrial fibrillation Urgency incontinence Benign prostatic hyperplasia with lower urinary tract symptoms Urolithiasis Carotid bruit Syncope Diabetes mellitus Hypertension CHF (congestive heart failure) CAD (coronary artery disease) This patient had a coronary bypass surgery in 2008 along with a mitral valve repair and a maze procedure, at the [facility] in [place]. Surgical History History of tonsillectomy and adenoidectomy History of loop recorder placed late 2020 or early 2021 H/O carpal tunnel repair bilateral S/P trigger finger release History of maze procedure History of mitral valve replacement with bioprosthetic valve S/P ureteral stent placement Hx of CABG Family History Mother , AT AGE 86 No problems noted. Father , AT AGE 65 Stroke Other Hyperlipidemia Hypertension Social History Smoking and tobacco/nicotine status: unknown if used tobacco/nicotine Alcohol intake: never Substance/Drug Use: never Lives independently: Yes Marital status: / Current occupational status: retired Physical Exam Narrative: EXAM NARRATIVE: Vitals were reviewed. Patient is alert, oriented, answering orientation questions appropriately. He has a small superficial abrasion on his left forehead. Patient has no midline C-spine tenderness, no pain with palpation of T, L-spine. He has full strength in upper extremities, no pain with range of motion of bilateral shoulders, elbows or wrists. Patient has no pain with rocking the pelvis or flexion of his bilateral hips. Patient is able to flex both knees but has pain, bruising and superficial abrasions. Patient is neurovascularly intact, build to palpate bilateral DP pulses. No obvious deformity to any extremity. On auscultation of the lungs, patient has crackles in bilateral lung bases but has known CHF. Otherwise no wheezing noted. Course Vital Signs: Vital signs: Vital Signs Temperature 97.4 F L 01/19/25 04:39 Pulse Rate 86 01/19/25 06:06 Respiratory Rate 16 01/19/25 06:06 Blood Pressure 138/68 01/19/25 06:06 Pulse Oximetry 97 01/19/25 06:06 Oxygen Delivery Me thod Nasal Cannula 01/19/25 06:06 MDM - Fall Medical Decision Making 84-year-old male presents from detention after an unwitnessed fall. He states he was sitting on the edge of a bed, leaning across the table when he lost his balance, landed on his knees and hit his forehead. Patient takes Eliquis. Differential diagnosis includes, is not limited to, closed head injury, ICH, fracture, dislocation, contusion, superficial abrasion versus laceration, underlying illness. On exam he centrically stable. He was eval basic lab work including CBC and BMP. He was additionally evaluated with CT of his head, x-rays of bilateral knees and chest x-ray. Lab work shows normal white blood cell count. Patient is not anemic. He does not have any actionable electrolyte abnormalities. Creatinine is elevated but this is less than prior, he has a normal anion gap and I suspect this is chronic. Patient has normal liver function. X-rays do not show acute fracture or dislocation, CT head is negative for acute findings. Patient and family at bedside were informed and results of lab work and tests, are comfortable taking patient home at this time. Patient was counseled on supportive care at home, given return precautions and discharged in stable condition with recommendation for outpatient follow-up with primary care nurse or doctor. Lab Data 01/19/25 04:45 01/19/25 04:45 Radiology Impressions Chest X-Ray 01/19/25 05:01 IMPRESSION: No acute findings. Head CT 01/19/25 05:01 IMPRESSION: No acute intracranial abnormality. Knee X-Ray 01/19/25 05:01 IMPRESSION: No acute findings. Laboratory Results WBC 8.12 10^3/uL (3.29-11.43) 01/19/25 04:45 RBC 4.86 10^6/uL (3.85-5.65) 01/19/25 04:45 Hgb 14.70 g/dL (11.27-16.99) 01/19/25 04:45 Hct 44.9 % (37-53) 01/19/25 04:45 MCV 92.4 fl (82-101) 01/19/25 04:45 MCH 30.2 pg (27-33) 01/19/25 04:45 MCHC 32.7 g/dL (30-55) 01/19/25 04:45 RDW 13.6 % (12.1-15.1) 01/19/25 04:45 Plt Count 142 10^3/cmm (157-399) L 01/19/25 04:45 MPV 9.3 fL (7.4-10.4) 01/19/25 04:45 Neut % (Auto) 65.8 % 01/19/25 04:45 Lymph % (Auto) 23.0 % 01/19/25 04:45 Garvin % (Auto) 7.5 % 01/19/25 04:45 Eos % (Auto) 2.5 % 01/19/25 04:45 Baso % (Auto) 0.5 % 01/19/25 04:45 Neut # (Auto) 5.34 10^3/uL (1.8-7.7) 01/19/25 04:45 Lymph # (Auto) 1.9 10^3/uL (0.8-4.8) 01/19/25 04:45 Garvin # (Auto) 0.6 10^3/uL (0.2-0.9) 01/19/25 04:45 Eos # (Auto) 0.2 10^3/uL (0.0-0.8) 01/19/25 04:45 Baso # (Auto) 0.0 10^3/uL (0.0-0.1) 01/19/25 04:45 Nucleated RBC % (auto) 0 % 01/19/25 04:45 Nucleated RBCs # 0.0 /100WBC 01/19/25 04:45 Sodium 138 mmol/L (136-145) 01/19/25 04:45 Potassium 4.6 mmol/L (3.5-5.1) 01/19/25 04:45 Chloride 103 mmol/L (98-107) 01/19/25 04:45 Carbon Dioxide 23 mmol/L (22-29) 01/19/25 04:45 Anion Gap 16.6 (5-19) 01/19/25 04:45 BUN 46 mg/dL (8-23) H 01/19/25 04:45 Creatinine 1.6 mg/dL (0.7-1.2) H 01/19/25 04:45 GFR Calculation Not Reportable 01/19/25 04:45 Glucose 193 mg/dL (65-115) H 01/19/25 04:45 Calculated Osmolality 303 mOsm/kg (285-295) H 01/19/25 04:45 Calcium 9.6 mg/dL (8.5-10.5) 01/19/25 04:45 Total Bilirubin 0.4 mg/dL (0.15-1.2) 01/19/25 04:45 AST 11 U/L (0-40) 01/19/25 04:45 ALT 13 U/L (0-41) 01/19/25 04:45 Alkaline Phosphatase 93 U/L (40-130) 01/19/25 04:45 Total Protein 6.4 g/dL (6.6-8.7) L 01/19/25 04:45 Albumin 3.8 g/dL (3.5-5.2) 01/19/25 04:45 Globulin 2.6 g/dL (1.3-4.6) 01/19/25 04:45 All radiology interpretation(s) finalized by discharge Discharge Plan Discharge Patient Disposition: Home Clinical Impression: Fall Qualifiers: Encounter type: initial encounter Qualified Code(s): W19.XXXA - Unspecified fall, initial encounter Closed head injury Qualifiers: Encounter type: initial encounter Qualified Code(s): S09.90XA - Unspecified injury of head, initial encounter Abrasion of forehead Qualifiers: Encounter type: initial encounter Qualified Code(s): S00.81XA - Abrasion of other part of head, initial encounter Contusion of left knee Qualifiers: Encounter type: initial encounter Qualified Code(s): S80.02XA - Contusion of left knee, initial encounter Contusion of knee, right Qualifiers: Encounter type: initial encounter Qualified Code(s): S80.01XA - Contusion of right knee, initial encounter Condition: Stable Prescriptions: No Action tamsulosin 0.4 mg capsule 0.4 mg PO BID Qty: 180 3RF memantine 5 mg tablet 5 mg PO BID duloxetine 20 mg capsule,delayed release(DR/EC) 40 mg PO DAILY Ozempic 0.25 mg or 0.5 mg (2 mg/3 mL) pen injector 0.5 mg SUBCUT Q7D Rx Instructions: ON THURSDAY (DME) diabetic shoes with 3 inserts See Rx Instructions .Route .MEDSUPPLY Qty: 1 0RF Rx Instructions: As directed to the sigrid woo Eliquis 5 mg tablet See Rx Instructions .ROUTE .COMPLEX Qty: 90 3RF Dose Instruction: TAKE ONE-HALF TABLET BY MOUTH TWICE A DAY FOR ATRIAL FIBRILLATION. THIS TABLET IS TO BE CUT IN HALF FOR YOUR DOSE Rx Instructions: TAKE ONE-HALF TABLET BY MOUTH TWICE A DAY FOR ATRIAL FIBRILLATION. THIS TABLET IS TO BE CUT IN HALF FOR YOUR DOSE atorvastatin 80 mg Tablet 80 mg PO QPM magnesium oxide [MagOx] 400 mg (241.3 mg magnesium) Tablet 400 mg PO BID calcium polycarbophil 625 mg Tablet 1,250 mg PO DAILY omeprazole 20 mg Tablet,Delayed Release (Dr/Ec) 20 mg PO BID cholecalciferol (vitamin D3) [Vitamin D3] 50 mcg (2,000 unit) tablet 2,000 unit PO QPM aspirin 81 mg Tablet,Delayed Release (Dr/Ec) 81 mg PO BEDTIME finasteride 5 mg Tablet 5 mg PO QPM buspirone 10 mg Tablet 5 mg PO TID vitamin B complex Tablet 2 tab PO QAM pyridoxine (vitamin B6) [Vitamin B-6] 100 mg Tablet 100 mg PO QAM furosemide 40 mg tablet 40 mg PO QAM PRN (Reason: Edema) acetaminophen 500 mg Tablet 500 mg PO QID PRN (Reason: Pain) carvedilol 3.125 mg Tablet 3.125 mg PO BID Rx Instructions: must administer with a meal/food potassium chloride 20 mEq tablet,ER particles/crystals 20 meq PO DAILY PRN (Reason: with lasix) midodrine 10 mg tablet 10 mg PO TID PRN (Reason: LOW BLOOD) fluoride (sodium) [Sodium Fluoride 5000 Plus] 1.1 % Cream 1 applic DENTAL DAILY omega 9-fuo-uel-fish oil [Fish Oil] 1,000 mg (120 mg-180 mg) Capsule 1 cap PO BID albuterol sulfate 90 mcg/actuation HFA aerosol inhaler 2 inh INHALATION Q4H PRN (Reason: shortness of breath or wheezing) Qty: 6.7 1RF Lantus U-100 Insulin 100 unit/mL solution 20 unit SUBCUT BEDTIME Discharge Orders: Discharge ED (Routine); Ordered 01/19/25 Ordered By: Bailee Peres Referrals: Lena Orellana MD [Primary Care Provider, [facility]] Patient Instructions: Fall Prevention for Older Adults (ED), Opioid Safety, Pain Management, Patient Portal & Pippa Instructions Activity Restrictions/Additional Instructions: Please continue to monitor your condition closely at home. Take Tylenol 500-1000mg every six hours for pain and inflammation. If your condition worsens or additional concerns arise, please return promptly to the emergency department for reassessment. Follow up with your primary care doctor in one week. Print Language: German Coding Level of Care Code ED Vending Machine Servicer for Nathaniel Alicea
[2025-01-19 06:06] VITALS: BP 138/68; PULSE 86; RESP 16; O2SAT 97
[2025-01-19 06:50] VITALS: BP 136/76; PULSE 96; RESP 14; O2SAT 99
== END 2025-01-19 06:52 | disposition home or self-care (01) ==
PROVIDERS: Emergency Provider Emergency Medicine; PCP Family Medicine
DX: S09.8XXA Other specified injuries of head, initial encounter (principal); S00.81XA Abrasion of other part of head, initial encounter; S80.02XA Contusion of left knee, initial encounter; S80.01XA Contusion of right knee, initial encounter; W19.XXXA Unspecified fall, initial encounter; Z79.01 Long term (current) use of anticoagulants; Z79.82 Long term (current) use of aspirin; Z95.1 Presence of aortocoronary bypass graft; I25.10 Atherosclerotic heart disease of native coronary artery without angina pectoris; E78.5 Hyperlipidemia, unspecified; E11.22 Type 2 diabetes mellitus with diabetic chronic kidney disease; I13.0 Hypertensive heart and chronic kidney disease with heart failure and stage 1 through stage 4 chronic kidney disease, or unspecified chronic kidney disease; N18.9 Chronic kidney disease, unspecified; I50.9 Heart failure, unspecified
CPT/HCPCS: 36415; 70450; 71045; 73562; 80053; 85025; 99284

== ENCOUNTER 2025-01-26 02:23 | Emergency (ER) | payer OTHER, SELFPAY ==
[2025-01-26] VITALS (9 sets, daily range): BP systolic 110–171; BP diastolic 65–92; PULSE 72–79; RESP 12–18; TEMP 36.6; O2SAT 92–95; BMI 29.7
--- NOTE | 2025-01-26 02:18 | ECG_ITS ---
[facility] Date: 2025-01-26 Pat Name: Jose Armendariz Department: Room: Gender: Male Imaging Aide: : 1940 Requested By: Bashir Galan Order Number: [id number] Rebeca MD: Pippa Zimmerman M.D. Measurements Intervals [place] Rate: 76 P: 66 NH: 226 QRS: 51 QRSD: 149 T: 5 QT: 411 QTc: 464 Interpretive Statements SINUS RHYTHM WITH FIRST DEGREE AV BLOCK WITH OCCASIONAL SUPRAVENTRICULAR PREMATURE COMPLEXES RIGHT BUNDLE BRANCH BLOCK [120+ ms QRS DURATION, UPRIGHT V1, 40+ ms S IN I/aVL/V4/V5/V6] Compared to ECG 07/25/2024 00:46:24 First degree AV block now present Atrial fibrillation no longer present Ventricular premature complex(es) no longer present T-wave abnormality no longer present Possible ischemia no longer present Electronically Signed On 01-28-2025 14:46:58 ASSISTANT PRODUCTION MANAGER by Pippa Zimmerman M.D. [id number]
--- OUTSIDE RECORDS SUMMARY | 2025-01-26 02:31 | XMS_ITS | Encounter Summary ---
Author Organization [facility] Address [address] [facility] [address] [place] [address] Phone Care Team Providers Care Barn Hand Name Role Phone Sam Fay Primary Care Provider [phone] Encounter Details Date Type Department Care Team (Late st Contact Info) Description 06/23/2018 Orders Only [facility] [address] [place], [place] [address] Lavon Bazzi MD [address] [place] [address] Chronic kidney disease stage 3; [...] PROTEIN ELECTROPHORESIS, SERUM Routine 02/28/2019 9:00 AM FRAME BENDER Nonspecific abnormal results of function study of kidney Chronic kidney disease stage 3 (HCC) PROTEIN / CREATININE RATIO, URINE Routine 06/15/2018 Chronic kidney disease stage 3 URINALYSIS WITH MICROSCOPIC Routine 06/15/2018 Chronic kidney disease stage 3 CBC AND DIFFERENTIAL Routine 06/15/2018 Chronic kidney disease stage 3 documented in this encounter Results * Protein electrophoresis, serum (02/28/2019 9:00 AM FRAME BENDER) Total Protein, Serum 6.4 g/dL Albumin SPE 3.8 g/dL Globulin, Total 0.3 g/dL Comment 0.7 g/dL Comment:recorded as 2 Glob Beta Globulin 0.4 g/dL Gamma Globulin in Serum 0.9 g/dL Beta 2 Globulin 0.3 g/dL Interpretation: Comment:No M Alban detected. Blood specimen (specimen) Venous blood / Unknown 02/28/2019 9:00 AM FRAME BENDER Narrative Chasidy Zelaya MA - 03/16/2019 10:57 AM FRAME BENDER As ordered Gurpreet Watonwan [facility] CLIA#[id number] [address] [place] [address] Lavon Bazzi MD LAB BLOOD ORDERABLES Final [...] Armendariz MA - 06/17/2018 7:24 AM T MT Lavon Bazzi MD LAB URINE ORDERABLES Final [...] Armendariz MA - 06/17/2018 7:10 AM T MT Lavon Bazzi MD LAB BLOOD ORDERABLES Final [...] kidney documented in this encounter Care Teams Barn Hand Relationship Specialty Start Date End Date Sam Fay PCP - General Internal Medicine 06/07/18 documented as of this encounter
--- OUTSIDE RECORDS SUMMARY | 2025-01-26 02:31 | XMS_ITS | Encounter Summary ---
Author Organization [facility] Address [address] [place] [address] Care Team Providers Care Store Receiving Specialist Name Role Phone Sam Fay MD Primary Care Provider [phone] Encounter Details Date Type Department Care Team (Late st Contact Info) Description 03/10/2002 Outpatient Historical [facility] Primary Care - [address] [address] Massimo Piña, DO NO ADDRESS ON FILE Social History Tobacco Use Types Packs/Day Years Used Date Smoking Tobacco: Never Assessed Sex and Gender Information Value Date Recorded Sex Assigned at Not on file Legal Sex Male 8:53 PM TECHNICAL ADMINISTRATIVE ASSISTANT Gender Identity Not on file Sexual Orientation Not on file documented as of this encounter Plan of Treatment Upcoming Encounters Date Type Department Care Team (Late st Contact Info) Description 02/06/2025 10:30 AM TECHNICAL ADMINISTRATIVE ASSISTANT Appointment [facility] Imaging Services [address] [place] [address] Khloe Galvin NP [address] [address] 03/14/2025 11:30 AM TECHNICAL ADMINISTRATIVE ASSISTANT Office Visit [facility] Gastroenterology- [place] [address] [address] Khloe Galvin NP [address] [address] 03/22/2025 11:00 AM TECHNICAL ADMINISTRATIVE ASSISTANT Appointment [facility] MRI [address] [place] [address] Khloe Galvin NP [address] [place] [address] 06/26/2025 2:45 PM CDT Office Visit [facility] [address] [facility] [address] [place] [address] Favio Polanco MD [address] [facility] [address] [place] [address] documented as of this encounter Visit Diagnoses Not on filedocumented in this encounter Additional Health Concerns Infection Onset Date Last Indicated Resolved Time R/O COVID-19 05/15/2024 05/15/2024 05/15/2024 1:12 PM CDT documented as of this encounter Care Teams Store Receiving Specialist Relationship Specialty Start Date End Date Sam Fay MD PCP - General Emergency Medicine 12/22/18 documented as of this encounter
--- OUTSIDE RECORDS SUMMARY | 2025-01-26 02:31 | XMS_ITS | Clinical Summary ---
Author Organization [facility] Address [address] [address] Care Team Providers Care Prefabricator Name Role Phone Sam Fay MD Primary [...] 09/27/2015 INFLUENZA VACCINE (#1) 2024 Care Teams Prefabricator Relationship Specialty Start Date End Date Sam Fay MD PCP - General Emergency Medicine 12/22/18
--- OUTSIDE RECORDS SUMMARY | 2025-01-26 02:31 | XMS_ITS | Encounter Summary ---
Author Organization [facility] Address [address] [place] [address] Phone Care Team Providers Care Sleeper Cutter Name Role Phone Sam Fay Primary Care Provider [phone] Encounter Details Date Type Department Care Team (Late st Contact Info) Description 03/23/2018 Orders Only [facility] [address] [place] [address] Social History Tobacco Use Types [...] on filedocumented in this encounter Care Teams Sleeper Cutter Relationship Specialty Start Date End Date Sam Fay PCP - General Internal Medicine 06/07/18 documented as of this encounter
--- OUTSIDE RECORDS SUMMARY | 2025-01-26 02:31 | XMS_ITS | Encounter Summary ---
Author Organization [facility] Address [address] [place] [address] Care Team Providers Care Development Planner Name Role Phone Sam Fay MD Primary Care Provider [phone] Encounter Details Date Type Department Care Team (Late st Contact Info) Description 06/12/2001 Outpatient Historical [facility] Primary Care - [address] [place] [address] Massimo Piña, DO NO ADDRESS ON FILE Social History Tobacco Use Types Packs/Day Years Used Date Smoking Tobacco: Never Assessed Sex and Gender Information Value Date Recorded Sex Assigned at Not on file Legal Sex Male 8:53 PM TRANSITION LEAD Gender Identity Not on file Sexual Orientation Not on file documented as of this encounter Plan of Treatment Upcoming Encounters Date Type Department Care Team (Late st Contact Info) Description 02/06/2025 10:30 AM TRANSITION LEAD Appointment [facility] Imaging Services [address] [place] [address] Khloe Galvin NP [address] [address] 03/14/2025 11:30 AM TRANSITION LEAD Office Visit [facility] Gastroenterology- [place] [address] [address] Khloe Galvin NP [address] [address] 03/22/2025 11:00 AM TRANSITION LEAD Appointment [facility] MRI [address] [place] [address] Khloe Galvin NP [address] [place] [address] 06/26/2025 2:45 PM CDT Office Visit [facility] [address] [facility] [address] [place] [address] Favio Polanco MD [address] [facility] [address] [place] [address] documented as of this encounter Visit Diagnoses Not on filedocumented in this encounter Additional Health Concerns Infection Onset Date Last Indicated Resolved Time R/O COVID-19 05/15/2024 05/15/2024 05/15/2024 1:12 PM CDT documented as of this encounter Care Teams Development Planner Relationship Specialty Start Date End Date Sam Fay MD PCP - General Emergency Medicine 12/22/18 documented as of this encounter
--- OUTSIDE RECORDS SUMMARY | 2025-01-26 02:31 | XMS_ITS | Clinical Summary ---
Author Organization [facility] Address [address] [place] [address] Phone Care Team Providers Care Vending Machine Operator Name Role Phone Sam Fay Primary Care Provider [phone] Allergies Active Allergy Reactions Criticality Noted Date [...] (EXTERNAL RESULT ENTRY) Routine 02/06/2020 10:55 AM CIRCUS HAND from Last 3 Months or Most Recently Relevant to Health Maintenance Results * Hemoglobin A1C (02/06/2020 10:55 AM CIRCUS HAND) Hemoglobin A1C 7.0 Blood specimen (specimen) Venous blood / Unknown 02/06/2020 10:55 AM CIRCUS HAND Sam Fay LAB BLOOD ORDERABLES Final Resu lt from Last 3 Months or Most Recently Relevant to Health Maintenance Insurance [facility] [place] 1,2,3 (VACCN) Care Teams Vending Machine Operator Relationship Specialty Start Date End Date Sam Fay PCP - General Internal Medicine 06/07/18
--- OUTSIDE RECORDS SUMMARY | 2025-01-26 02:31 | XMS_ITS | Encounter Summary ---
Author Organization [facility] Address [address] [place] [address] Care Team Providers Care Finish Molder Name Role Phone Sam Fay MD Primary Care Provider [phone] Encounter Details Date Type Department Care Team (Late st Contact Info) Description 05/03/2007 Outpatient Historical [facility] Primary Care - [address] [place] [address] Massimo Piña, DO NO ADDRESS ON FILE Social History Tobacco Use Types Packs/Day Years Used Date Smoking Tobacco: Never Assessed Sex and Gender Information Value Date Recorded Sex Assigned at Not on file Legal Sex Male 8:53 PM TOP LIFT NAILER Gender Identity Not on file Sexual Orientation Not on file documented as of this encounter Plan of Treatment Upcoming Encounters Date Type Department Care Team (Late st Contact Info) Description 02/06/2025 10:30 AM TOP LIFT NAILER Appointment [facility] Imaging Services [address] [place] [address] Khloe Galvin NP [address] [address] 03/14/2025 11:30 AM TOP LIFT NAILER Office Visit [facility] Gastroenterology- [place] [address] [address] Khloe Galvin NP [address] [address] 03/22/2025 11:00 AM TOP LIFT NAILER Appointment [facility] MRI [address] [place] [address] Khloe Galvin NP [address] [place] [address] 06/26/2025 2:45 PM CDT Office Visit [facility] [address] [facility] [address] [place] [address] Favio Polanco MD [address] [facility] [address] [place] [address] documented as of this encounter Visit Diagnoses Not on filedocumented in this encounter Additional Health Concerns Infection Onset Date Last Indicated Resolved Time R/O COVID-19 05/15/2024 05/15/2024 05/15/2024 1:12 PM CDT documented as of this encounter Care Teams Finish Molder Relationship Specialty Start Date End Date Sam Fay MD PCP - General Emergency Medicine 12/22/18 documented as of this encounter
--- OUTSIDE RECORDS SUMMARY | 2025-01-26 02:31 | XMS_ITS | Encounter Summary ---
Author Organization [facility] Address [address] [place] [address] Care Team Providers Care Facility Service Manager Name Role Phone Sam Fay MD Primary Care Provider [phone] Encounter Details Date Type Department Care Team (Late st Contact Info) Description 05/03/2007 Outpatient Historical [facility] Primary Care - [address] [place] [address] Massimo Piña, DO NO ADDRESS ON FILE Social History Tobacco Use Types Packs/Day Years Used Date Smoking Tobacco: Never Assessed Sex and Gender Information Value Date Recorded Sex Assigned at Not on file Legal Sex Male 8:53 PM AIR CARGO AGENT Gender Identity Not on file Sexual Orientation Not on file documented as of this encounter Plan of Treatment Upcoming Encounters Date Type Department Care Team (Late st Contact Info) Description 02/06/2025 10:30 AM AIR CARGO AGENT Appointment [facility] Imaging Services [address] [place] [address] Khloe Galvin NP [address] [address] 03/14/2025 11:30 AM AIR CARGO AGENT Office Visit [facility] Gastroenterology- [place] [address] [address] Khloe Galvin NP [address] [address] 03/22/2025 11:00 AM AIR CARGO AGENT Appointment [facility] MRI [address] [place] [address] Khloe Galvin NP [address] [place] [address] 06/26/2025 2:45 PM CDT Office Visit [facility] [address] [facility] [address] [place] [address] Favio Polanco MD [address] [facility] [address] [place] [address] documented as of this encounter Visit Diagnoses Not on filedocumented in this encounter Additional Health Concerns Infection Onset Date Last Indicated Resolved Time R/O COVID-19 05/15/2024 05/15/2024 05/15/2024 1:12 PM CDT documented as of this encounter Care Teams Facility Service Manager Relationship Specialty Start Date End Date Sam Fay MD PCP - General Emergency Medicine 12/22/18 documented as of this encounter
--- OUTSIDE RECORDS SUMMARY | 2025-01-26 02:31 | XMS_ITS | Encounter Summary ---
Author Organization [facility] Address [address] [place] [address] Care Team Providers Care Recreation Establishment Manager Name Role Phone Sam Fay MD Primary Care Provider [phone] Encounter Details Date Type Department Care Team (Late st Contact Info) Description 12/02/2001 Outpatient Historical [facility] Primary Care - [address] [place] [address] Massimo Piña, DO NO ADDRESS ON FILE Social History Tobacco Use Types Packs/Day Years Used Date Smoking Tobacco: Never Assessed Sex and Gender Information Value Date Recorded Sex Assigned at Not on file Legal Sex Male 8:53 PM CAREER COACH Gender Identity Not on file Sexual Orientation Not on file documented as of this encounter Plan of Treatment Upcoming Encounters Date Type Department Care Team (Late st Contact Info) Description 02/06/2025 10:30 AM CAREER COACH Appointment [facility] Imaging Services [address] [place] [address] Khloe Galvin NP [address] [address] 03/14/2025 11:30 AM CAREER COACH Office Visit [facility] Gastroenterology- [place] [address] [address] Khloe Galvin NP [address] [address] 03/22/2025 11:00 AM CAREER COACH Appointment [facility] MRI [address] [place] [address] Khloe Galvin NP [address] [place] [address] 06/26/2025 2:45 PM CDT Office Visit [facility] [address] [facility] [address] [place] [address] Favio Polanco MD [address] [facility] [address] [place] [address] documented as of this encounter Visit Diagnoses Not on filedocumented in this encounter Additional Health Concerns Infection Onset Date Last Indicated Resolved Time R/O COVID-19 05/15/2024 05/15/2024 05/15/2024 1:12 PM CDT documented as of this encounter Care Teams Recreation Establishment Manager Relationship Specialty Start Date End Date Sam Fay MD PCP - General Emergency Medicine 12/22/18 documented as of this encounter
--- OUTSIDE RECORDS SUMMARY | 2025-01-26 02:31 | XMS_ITS | Encounter Summary ---
Author Organization [facility] Address [address] [place] [address] Care Team Providers Care Architectural Modeler Name Role Phone Sam Fay MD Primary Care Provider [phone] Encounter Details Date Type Department Care Team (Late st Contact Info) Description 08/13/2004 Outpatient Historical [facility] Primary Care - [address] [place] [address] Massimo Piña, DO NO ADDRESS ON FILE Social History Tobacco Use Types Packs/Day Years Used Date Smoking Tobacco: Never Assessed Sex and Gender Information Value Date Recorded Sex Assigned at Not on file Legal Sex Male 8:53 PM MANUFACTURING MAINTENANCE MECHANIC Gender Identity Not on file Sexual Orientation Not on file documented as of this encounter Plan of Treatment Upcoming Encounters Date Type Department Care Team (Late st Contact Info) Description 02/06/2025 10:30 AM MANUFACTURING MAINTENANCE MECHANIC Appointment [facility] Imaging Services [address] [place] [address] Khloe Galvin NP [address] [address] 03/14/2025 11:30 AM MANUFACTURING MAINTENANCE MECHANIC Office Visit [facility] Gastroenterology- [place] [address] [address] Khloe Galvin NP [address] [address] 03/22/2025 11:00 AM MANUFACTURING MAINTENANCE MECHANIC Appointment [facility] MRI [address] [place] [address] Khloe Galvin NP [address] [place] [address] 06/26/2025 2:45 PM CDT Office Visit [facility] [address] [facility] [address] [place] [address] Favio Polanco MD [address] [facility] [address] [place] [address] documented as of this encounter Visit Diagnoses Not on filedocumented in this encounter Additional Health Concerns Infection Onset Date Last Indicated Resolved Time R/O COVID-19 05/15/2024 05/15/2024 05/15/2024 1:12 PM CDT documented as of this encounter Care Teams Architectural Modeler Relationship Specialty Start Date End Date Sam Fay MD PCP - General Emergency Medicine 12/22/18 documented as of this encounter
--- OUTSIDE RECORDS SUMMARY | 2025-01-26 02:31 | XMS_ITS | Encounter Summary ---
Author Organization [facility] Address [address] [facility] [address] [place] [address] Phone Care Team Providers Care Dress Designer Name Role Phone Sam Fay Primary Care Provider [phone] Encounter Details Date Type Department Care Team (Late st Contact Info) Description 02/25/2019 Orders Only [facility] [address] [place] [address] Amy Hatch PRISM MEASURER [address] [place] [address] [place] [address] Chronic kidney disease stage 3 [...] / CREATININE RATIO Routine 02/17/2019 1:30 PM BACCARAT MANAGER Chronic kidney disease stage 3 (HCC) CBC Routine 02/17/2019 1:30 PM BACCARAT MANAGER Chronic kidney disease stage 3 (HCC) PTH, INTACT Routine 02/17/2019 1:30 PM BACCARAT MANAGER Chronic kidney disease stage 3 (HCC) RENAL FUNCTION PANEL Routine 02/17/2019 1:30 PM BACCARAT MANAGER Chronic kidney disease stage 3 (HCC) documented in this encounter Results * (ABNORMAL) PTH, intact (02/17/2019 1:30 PM BACCARAT MANAGER) Parathyroid Hormone, Intact 141.0(A) 18.1 - 88.5 pg/mL PRINT/EXTERNA L (NON-INTERFAC ED LABS) Blood specimen (specimen) Venous blood / Unknown 02/17/2019 1:30 PM BACCARAT MANAGER Narrative PRINT/EXTERNAL (NON-INTERFACED LABS) - 02/21/2019 4:04 PM BACCARAT MANAGER field captain lab [facility] Amy Hatch PRISM MEASURER LAB BLOOD ORDERABLES Sujey l Result Performing Organization Address City/[facility]/ZIP Co de Phone Number PRINT/EXTERNAL (NON-INTERFACED LABS) * Urine albumin / creatinine ratio (02/17/2019 1:30 PM BACCARAT MANAGER) Pathologist [facility] Urine Microalbumin 26.3 mg/dL PRINT/EXTERNA L (NON-INTERFAC ED LABS) Creatinine, Urine 198.22 mg/dL [place] INT/EXTERNA L (NON-INTERFAC ED LABS) Protein, Ur 27.1 PRINT/EX TERNA L (NON-INTERFAC ED LABS) Urine specimen (specimen) Urine specimen obtained by clean catch procedure / Unknown 02/17/2019 1:30 PM BACCARAT MANAGER Amy Hatch PRISM MEASURER LAB URINE ORDERABLES Sujey l Result PRINT/EXTERNAL (NON-INTERFACED LABS) * CBC (02/17/2019 1:30 PM BACCARAT MANAGER) WBC 8.7 K/uL PRINT/EXTE RNAL (NON-INTERFACE D [...] Venous blood / Unknown 02/17/2019 1:30 PM BACCARAT MANAGER us Amy Hatch PRISM MEASURER LAB BLOOD ORDERABLES Sujey veras Result PRINT/EXTERNAL (NON-INTERFACED LABS) * (ABNORMAL) Renal function panel (02/17/2019 1:30 PM BACCARAT MANAGER) Albumin 3.9 3.5 - 5.0 g/dL PRINT/EXTERNA [...] Venous blood / Unknown 02/17/2019 1:30 PM BACCARAT MANAGER us Amy Hatch PRISM MEASURER LAB BLOOD ORDERABLES Sujey veras Result PRINT/EXTERNAL (NON-INTERFACED LABS) documented in this encounter Visit Diagnoses Diagnosis Chronic kidney disease stage 3 (HCC) documented in this encounter Care Teams Dress Designer Relationship Specialty Start Date End Date Sam Fay PCP - General Internal Medicine 06/07/18 documented as of this encounter
--- OUTSIDE RECORDS SUMMARY | 2025-01-26 02:31 | XMS_ITS | Encounter Summary ---
Author Organization [facility] Address [address] [place] [address] Care Team Providers Care Die Maintenance Technician Name Role Phone Sam Fay MD Primary Care Provider [phone] Encounter Details Date Type Department Care Team (Late st Contact Info) Description 12/07/2007 Outpatient Historical [facility] Massimo Frias DO NO ADDRESS ON FILE Cough Social History Tobacco Use Types Packs/Day Years Used Date Smoking Tobacco: Never Assessed Sex and Gender Information Value Date Recorded Sex Assigned at Not on file Legal Sex Male 8:53 PM SUGAR REFINERY SUPERVISOR Gender Identity Not on file Sexual Orientation Not on file documented as of this encounter Plan of Treatment Upcoming Encounters Date Type Department Care Team (Late st Contact Info) Description 02/06/2025 10:30 AM SUGAR REFINERY SUPERVISOR Appointment [facility] Imaging Services [address] [place] [address] Khloe Galvin [address] [address] 03/14/2025 11:30 AM SUGAR REFINERY SUPERVISOR Office Visit [facility] Gastroenterology- [place] [address] [address] Khloe Galvin [address] [address] 03/22/2025 11:00 AM SUGAR REFINERY SUPERVISOR Appointment [facility] MRI [address] [place] [address] Khloe Galvin, [address] [place] [address] 06/26/2025 2:45 PM CDT Office Visit [facility] [address] [place] [address] Favio Polanco MD [address] [place] [address] documented as of this encounter Procedures Procedure Name Priority Date/Time Associated Diagnosis Comments XR CHEST PA AND LATERAL 2 VW Routine 12/07/2007 10:52 AM CDT documented in this encounter Results * XR CHEST PA AND LATERAL (12/07/2007 10:52 AM CDT) Anatomical Region Laterality Modality Chest Other 12/07/2007 10:5 2 AM CDT Narrative 12/07/2007 11:42 AM CDT [facility] [address] [place], [place] [address] Admit Date: 12/07/2007 ESEQUIEL ARMENDARIZ Sex: M Admit Prov: MASSIMO FRIAS Date: 1940 Primary Care Prov: MASSIMO FRIAS CMRN: [id number] [id number] [facility] Ordering Prov: N/A Accession Number: [id number] Interpretation CHEST 2 VIEWS, 12/07/2007 Clinical History: [...] Procedure Note Alina Alonso MD - 12/07/2007 [facility] [address] [place], [place] [address] Admit Date: 12/07/2007 ALBERTO ESEQUIEL Weaver Sex: M Admit Prov: MASSIMO FRIAS Date: 1940 Primary Care Prov: MASSIMO FRIAS CMRN: [id number] Room: [facility] SSN: [id number] IMAGING SERVICES Ordering Prov: N/A Interpretation CHEST [...] documented as of this encounter Care Teams Die Maintenance Technician Relationship Specialty Start Date End Date Sam Fay MD PCP - General Emergency Medicine 12/22/18 documented as of this encounter
--- OUTSIDE RECORDS SUMMARY | 2025-01-26 02:31 | XMS_ITS | Encounter Summary ---
Author Organization [facility] Address [address] [facility] [address] [place] [address] Phone Care Team Providers Care Batch Blender Name Role Phone Sam Fay Primary Care Provider [phone] Encounter Details Date Type Department Care Team (Late st Contact Info) Description 10/09/2018 Orders Only [facility] [address] [place], [place] [address] Lavon Bazzi MD [address] [place] [place] [address] Chronic kidney disease stage 3 [...] Ramirez LPN - 10/08/2018 4:58 PM CDT detective captain lab Dept. Of [place] [address] phone [phone] fax Lavon Bazzi MD LAB BLOOD ORDERABLES [...] Unknown 10/07/2018 9:00 AM CDT Rober Ramirezmy, NET APPLICATION SUPPORT SPECIALIST - 10/08/2018 4:58 PM CDT detective captain lab Dept. Of [address] [address] phone [phone] fax Lavon Bazzi MD LAB URINE ORDERABLES [...] Baker LPN - 10/08/2018 4:58 PM CDT detective captain lab Dept. Of [address] [address] phone [phone] fax Lavon Bazzi MD LAB BLOOD ORDERABLES [...] 10/07/2018 9:00 AM CDT Narrative Suad Baker, NET APPLICATION SUPPORT SPECIALIST - 10/08/2018 4:58 PM CDT detective captain lab Dept. Of [address] [address] phone [phone] fax Lavon Bazzi MD LAB BLOOD ORDERABLES Final Result documented in this encounter Visit Diagnoses Diagnosis Chronic kidney disease stage 3 (HCC) documented in this encounter Care Teams Batch Blender Relationship Specialty Start Date End Date Sam Fay PCP - General Internal Medicine 06/07/18 documented as of this encounter
--- OUTSIDE RECORDS SUMMARY | 2025-01-26 02:31 | XMS_ITS | Encounter Summary ---
Author Organization [facility] Address [address] [place] [address] Care Team Providers Care Supervisor Concrete Stone Finishing Name Role Phone Sam Fay MD Primary Care Provider [phone] Encounter Details Date Type Department Care Team (Late st Contact Info) Description 08/06/2004 Outpatient Historical [facility] Primary Care - [address] [place] [address] Massimo Piña, DO NO ADDRESS ON FILE Social History Tobacco Use Types Packs/Day Years Used Date Smoking Tobacco: Never Assessed Sex and Gender Information Value Date Recorded Sex Assigned at Not on file Legal Sex Male 8:53 PM STRATEGY CONSULTANT Gender Identity Not on file Sexual Orientation Not on file documented as of this encounter Plan of Treatment Upcoming Encounters Date Type Department Care Team (Late st Contact Info) Description 02/06/2025 10:30 AM STRATEGY CONSULTANT Appointment [facility] Imaging Services [address] [place] [address] Klhoe Galvin NP [address] [address] 03/14/2025 11:30 AM STRATEGY CONSULTANT Office Visit [facility]3] Gastroenterology- [place] [address] [address] Khloe Galvin NP [address] [address] 03/22/2025 11:00 AM STRATEGY CONSULTANT Appointment [facility] MRI [address] [place] [address] Khloe Galvin NP [address] [place] [address] 06/26/2025 2:45 PM CDT Office Visit [facility] [address] [facility] [address] [place] [address] Favio Polanco MD [address] [facility] [address] [place] [address] documented as of this encounter Visit Diagnoses Not on filedocumented in this encounter Additional Health Concerns Infection Onset Date Last Indicated Resolved Time R/O COVID-19 05/15/2024 05/15/2024 05/15/2024 1:12 PM CDT documented as of this encounter Care Teams Supervisor Concrete Stone Finishing Relationship Specialty Start Date End Date Sam Fay MD PCP - General Emergency Medicine 12/22/18 documented as of this encounter
--- NOTE | 2025-01-26 02:32 | XRR_ITS ---
PROCEDURE INFORMATION: Exam: XR Right Knee Exam date and time: 01/26/2025 3:20 AM Age: 84 years old Clinical indication: Injury or trauma; Fall; Blunt trauma; Knee; Bilateral TECHNIQUE: Imaging protocol: Radiologic exam of the right knee. Views: 3 views. COMPARISON: CR (LOW EXM, ) 01/19/2025 5:35 AM FINDINGS: Tubes, catheters and devices: Posterior surgical clips, correlate with surgical history. Bones/joints: Severe joint space narrowing of the medial compartment. Diffuse osseous demineralization. No acute fracture or dislocation. Osteophytic spurring of the medial compartment. Soft tissues: Enthesopathic ossification of the extensor mechanism. Vasculature: Vascular calcification XR/XR knee RT 3V* [id number] IMPRESSION: 1. Severe joint space narrowing of the medial compartment. 2. No acute fracture or dislocation.
--- NOTE | 2025-01-26 02:32 | XRR_ITS ---
PROCEDURE INFORMATION: Exam: XR Chest Exam date and time: 01/26/2025 3:06 AM Age: 84 years old Clinical indication: Injury or trauma; Fall; Blunt trauma (contusions or hematomas) TECHNIQUE: Imaging protocol: Radiologic exam of the chest. Views: 1 view. COMPARISON: CR (CHEST, ) 01/19/2025 5:28 AM FINDINGS: Lungs: Unremarkable. No consolidation. Pleural spaces: Unremarkable. No pleural effusion. No pneumothorax. Heart/Mediastinum: Unremarkable. No cardiomegaly. Bones/joints: Sternotomy wires. XR/XR chest 1V portable [id number] IMPRESSION: No pneumonia.
--- NOTE | 2025-01-26 02:32 | XRR_ITS ---
PROCEDURE INFORMATION: Exam: XR Left Knee Exam date and time: 01/26/2025 3:24 AM Age: 84 years old Clinical indication: Injury or trauma; Fall; Blunt trauma; Knee; Bilateral TECHNIQUE: Imaging protocol: Radiologic exam of the left knee. Views: 3 views. COMPARISON: CR XR knee LT 3V* [id number] 01/19/2025 5:30 AM FINDINGS: Bones/joints: Severe joint space narrowing of the medial compartment. No acute fracture or dislocation. Diffuse osseous demineralization. Soft tissues: Enthesopathic ossification of the extensor mechanism. Vasculature: Vascular calcifications. XR/XR knee LT 3V* [id number] IMPRESSION: 1. Severe joint space narrowing of the medial compartment. 2. No acute fracture or dislocation.
--- NOTE | 2025-01-26 02:32 | CTR_ITS ---
PROCEDURE INFORMATION: Exam: CT Cervical Spine Without Contrast Exam date and time: 01/26/2025 2:44 AM Age: 84 years old Clinical indication: Injury or trauma; Fall; Blunt trauma; Additional info: Trauma, facial lacerations to forehead, bridge of nose TECHNIQUE: Imaging protocol: Computed tomography of the cervical spine without contrast. Radiation optimization: All CT scans at this facility use at least one of these dose optimization techniques: automated exposure control; mA and/or kV adjustment per patient size (includes targeted exams where dose is matched to clinical indication); or iterative reconstruction. COMPARISON: CT cervical spin wo con* [id number] 12/26/2023 5:26 PM RADIATION DOSE METRICS: Total DLP (mGy-cm): 311.1 FINDINGS: Bones: No acute cervical spine fracture or subluxation. The vertebral body heights are maintained. The craniocervical junction is intact. The atlantodental interval is within normal limits. The dens is intact. No spondylolisthesis. Multilevel degenerative changes. Multilevel cervical spondylosis and degenerative endplate changes/disc disease. Straightening of the cervical lordosis. Lungs: Lung apices are normal. Soft tissues: Unremarkable. CT/CT cervical spin wo con* [id number] IMPRESSION: 1. No acute cervical spine fracture or subluxation. 2. Multilevel degenerative changes.
--- NOTE | 2025-01-26 02:32 | XRR_ITS ---
PROCEDURE INFORMATION: Exam: XR Pelvis Exam date and time: 01/26/2025 3:17 AM Age: 84 years old Clinical indication: Injury or trauma; Fall; Blunt trauma (contusions or hematomas); Bilateral; Hip TECHNIQUE: Imaging protocol: Radiologic exam of the pelvis. Views: 1 or 2 view. COMPARISON: CT abdomen pelvis con [id number] 11/22/2024 1:36 AM FINDINGS: Bones/joints: No acute fracture or dislocation. Diffuse osseous demineralization. Multilevel lumbar spondylosis. Soft tissues: Unremarkable. XR/XR pelvis 1-2V* [id number] IMPRESSION: No acute fracture or dislocation.
--- NOTE | 2025-01-26 02:32 | CTR_ITS ---
PROCEDURE INFORMATION: Exam: CT Head Without Contrast Exam date and time: 01/26/2025 2:44 AM Age: 84 years old Clinical indication: Injury or trauma; Fall; Blunt trauma (contusions or hematomas); Additional info: Trauma, facial lacerations to forehead, bridge of nose TECHNIQUE: Imaging protocol: Computed tomography of the head without contrast. Radiation optimization: All CT scans at this facility use at least one of these dose optimization techniques: automated exposure control; mA and/or kV adjustment per patient size (includes targeted exams where dose is matched to clinical indication); or iterative reconstruction. COMPARISON: CT head wo con* [id number] 01/19/2025 5:17 AM RADIATION DOSE METRICS: Total DLP (mGy-cm): 1414.5 FINDINGS: Brain: No acute intracranial hemorrhage. No midline shift or mass effect. No acute territorial infarct. Global age-related cerebral atrophy. 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 Cerebral ventricles: No ventriculomegaly. Paranasal sinuses: Visualized sinuses are unremarkable. No fluid levels. Mastoid air cells: Visualized mastoid air cells are well aerated. Bones: Unremarkable. No acute fracture. Soft tissues: Forehead soft tissue swelling. CT/CT head wo con* [id number] IMPRESSION: 1. No acute intracranial hemorrhage. No midline shift or mass effect. 2. Forehead soft tissue swelling.
--- NOTE | 2025-01-26 02:32 | XRR_ITS ---
PROCEDURE INFORMATION: Exam: XR Right Shoulder Exam date and time: 01/26/2025 3:07 AM Age: 84 years old Clinical indication: Injury or trauma; Fall; Blunt trauma (contusions or hematomas); Shoulder; Bilateral; Additional info: Trauma, ant R shoulder pain TECHNIQUE: Imaging protocol: Radiologic exam of the right shoulder. Views: 2 or more views. COMPARISON: CR (CHEST, ) 01/26/2025 3:06 AM FINDINGS: Bones/joints: No acute fracture or dislocation. Diffuse osseous demineralization. Moderate degenerative changes of the acromioclavicular joint. Soft tissues: Normal. XR/XR shoulder RT min 2V* [id number] IMPRESSION: No acute fracture or dislocation.
--- NOTE | 2025-01-26 02:32 | CTR_ITS ---
PROCEDURE INFORMATION: Exam: CT Maxillofacial Without Contrast Exam date and time: 01/26/2025 2:44 AM Age: 84 years old Clinical indication: Injury or trauma; Fall; Blunt trauma (contusions or hematomas); Forehead and nose; Additional info: Trauma, facial lacerations to forehead, bridge of nose TECHNIQUE: Imaging protocol: Computed tomography of the face without contrast. Radiation optimization: All CT scans at this facility use at least one of these dose optimization techniques: automated exposure control; mA and/or kV adjustment per patient size (includes targeted exams where dose is matched to clinical indication); or iterative reconstruction. COMPARISON: CT head wo con* [id number] 01/19/2025 5:17 AM RADIATION DOSE METRICS: Total DLP (mGy-cm): 709.2 FINDINGS: Paranasal sinuses: No air-fluid levels. Orbital cavities: See Bones finding. Lungs: Intact maxillary alveolus. Bones: The mandible is intact. No orbital floor fracture. The intraorbital contents are within normal limits. Nondisplaced fracture of the nasal bridge. Overlying soft tissue swelling. The zygomatic arches and pterygoid processes are intact. Soft tissues: See Bones finding. CT/CT facial bones wo con* [id number] IMPRESSION: Nondisplaced fracture of the nasal bridge. Overlying soft tissue swelling.
--- OUTSIDE RECORDS SUMMARY | 2025-01-26 02:32 | XMS_ITS | Encounter Summary ---
Author Organization [facility] Address [address] [place] [address] Care Team Providers Care Nurse Sane Name Role Phone Sam Fay MD Primary Care Provider [phone] Encounter Details Date Type Department Care Team (Late st Contact Info) Description 01/23/2000 Outpatient Historical [facility] Primary Care - [address] [place] [address] Massimo Piña, DO NO ADDRESS ON FILE Social History Tobacco Use Types Packs/Day Years Used Date Smoking Tobacco: Never Assessed Sex and Gender Information Value Date Recorded Sex Assigned at Not on file Legal Sex Male 8:53 PM SUPERVISOR BRIAR SHOP Gender Identity Not on file Sexual Orientation Not on file documented as of this encounter Plan of Treatment Upcoming Encounters Date Type Department Care Team (Late st Contact Info) Description 02/06/2025 10:30 AM SUPERVISOR BRIAR SHOP Appointment [facility] Imaging Services [address] [place] [address] Khloe Galvin NP [address] [address] 03/14/2025 11:30 AM SUPERVISOR BRIAR SHOP Office Visit [facility] Gastroenterology- [place] [address] [address] Khloe Galvin NP [address] [address] 03/22/2025 11:00 AM SUPERVISOR BRIAR SHOP Appointment [facility] MRI [address] [place] [address] Khloe Galvin NP [address] [place] [address] 06/26/2025 2:45 PM CDT Office Visit [facility] [address] [facility] [address] [place] [address] Favio Polanco MD [address] [facility] [address] [place] [address] documented as of this encounter Visit Diagnoses Not on filedocumented in this encounter Additional Health Concerns Infection Onset Date Last Indicated Resolved Time R/O COVID-19 05/15/2024 05/15/2024 05/15/2024 1:12 PM CDT documented as of this encounter Care Teams Nurse Sane Relationship Specialty Start Date End Date Sam Fay MD PCP - General Emergency Medicine 12/22/18 documented as of this encounter
--- OUTSIDE RECORDS SUMMARY | 2025-01-26 02:32 | XMS_ITS | Encounter Summary ---
Author Organization [facility] Address [address] [place] [address] Care Team Providers Care Newspaper Carrier Name Role Phone Sam Fay MD Primary Care Provider [phone] Encounter Details Date Type Department Care Team (Late st Contact Info) Description 01/16/1998 Outpatient Historical [facility] Primary Care - [address] [place] [address] Massimo Piña, DO NO ADDRESS ON FILE Social History Tobacco Use Types Packs/Day Years Used Date Smoking Tobacco: Never Assessed Sex and Gender Information Value Date Recorded Sex Assigned at Not on file Legal Sex Male 8:53 PM PATIENT PORTAL REPRESENTATIVE Gender Identity Not on file Sexual Orientation Not on file documented as of this encounter Plan of Treatment Upcoming Encounters Date Type Department Care Team (Late st Contact Info) Description 02/06/2025 10:30 AM PATIENT PORTAL REPRESENTATIVE Appointment [facility] Imaging Services [address] [place] [address] Khloe Galvin NP [address] [address] 03/14/2025 11:30 AM PATIENT PORTAL REPRESENTATIVE Office Visit [facility] Gastroenterology- [place] [address] [address] Khloe Galvin NP [address] [address] 03/22/2025 11:00 AM PATIENT PORTAL REPRESENTATIVE Appointment [facility] MRI [address] [place] [address] Khloe Galvin NP [address] [place] [address] 06/26/2025 2:45 PM CDT Office Visit [facility] [address] [facility] [address] [place] [address] Favio Polanco MD [address] [facility] [address] [place] [address] documented as of this encounter Visit Diagnoses Not on filedocumented in this encounter Additional Health Concerns Infection Onset Date Last Indicated Resolved Time R/O COVID-19 05/15/2024 05/15/2024 05/15/2024 1:12 PM CDT documented as of this encounter Care Teams Newspaper Carrier Relationship Specialty Start Date End Date Sam Fay MD PCP - General Emergency Medicine 12/22/18 documented as of this encounter
--- OUTSIDE RECORDS SUMMARY | 2025-01-26 02:32 | XMS_ITS | Clinical Summary ---
Author Organization [employer] [facility] Address [address] [place] [address] [address] [address] Phone Care Team Providers Care Machine Chocolate Molder Name Role Phone Sam Fay MD Primary Care Provider [phone] Allergies Active Allergy Reactions Criticality Noted Date [...] Units by subcutaneous injection daily at bedtime. Active finasteride (PROSCAR) 5 mg tablet Take [...] Encounters Date Type Department Care Team Description 01/24/2025 External Device Data STL ABSTRACTION Provider, Abstract 12/27/2024 External Device Data STL ABSTRACTION Provider, Abstract 12/20/2024 External Device Data [facility] ABSTRACTION Provider, Abstract 12/01/2024 8:30 AM CDT Office Visit [facility] Gastroenterology[address] [place] [address] Khloe Galvin NP Pancreatic lesion (Primary Dx); Diverticulitis; Abnormal CT scan, gastrointestinal tract; Constipation, unspecified constipation type; Odynophagia; History of Marcelo esophagus 11/[facility] [place] [address] Lena Orellana MD Disease of pancreas (Primary Dx) 11/15/2024 External Device Data STL ABSTRACTION Provider, Abstract 11/15/2024 External Device Data STL ABSTRACTION Provider, Abstract 11/01/2024 Telephone [facility] [address] [facility] [address] [place] [address] Favio oPlanco MD refill 10/26/2024 External Device Data STL [...] on file Legal Sex Male 8:53 PM TOY ASSEMBLY SUPERVISOR Gender Identity Not on file Sexual [...] st Contact Info) Description 02/06/2025 10:30 AM TOY ASSEMBLY SUPERVISOR Appointment [facility] Imaging Services [address] [place] [address] Khloe Galvin NP [address] [address] 03/14/2025 11:30 AM TOY ASSEMBLY SUPERVISOR Office Visit [facility] Gastroenterology- [place] [address] [address] Khloe Galvin NP [address] [address] 03/22/2025 11:00 AM TOY ASSEMBLY SUPERVISOR Appointment [facility] MRI [address] [place] [address] Khloe Galvin NP [address] [address] 06/26/2025 2:45 PM CDT Office Visit [facility] [address] [facility] [address] [place] [address] Favio Polanco MD [address] [facility] [address] [place] [phone] Health Maintenance Due Date Last Done Comments [...] AM CDT) CA 19-9 30 <34 U/mL [facility] Comment: This test was performed using the Siemens chemiluminescent method. Values obtained from different assay methods cannot be used interchangeably. CA 19-9 levels, regardless of value, should not be interpreted as absolute evidence of the presence or absence of disease. FASTING:YES FASTING: YES Test Performed at: [address] [address] Carmen Lake MD Blood 12/01/2024 10:2 0 AM CDT 12/01/2024 10:20 AM CDT us Khloe Galvin NP CHEMISTRY ORDERABLES Final R esult [facility] [phone] [address] * CBC WITH DIFFERENTIAL (12/01/2024 10:20 AM CDT) WBC 9.6 3.8 - 10.8 Thousand/u L [facility] RRL RBC 4.89 4.20 - 5.80 Million/uL [facility] HEMOGLOBIN 14.8 13.2 - 17.1 g/dL [facility] HEMATOCRIT 45.4 38.5 - 50.0 % [facility] MCV 92.8 80.0 - 100.[address] [facility] MCH 30.3 27.0 - 33.[address] [facility] MCHC 32.6 32.0 - 36.0 g/dL [facility] Comment: For adults, a slight decrease in the calculated MCHC value (in the range of 30 to 32 g/dL) is most likely not clinically significant; however, it should be interpreted with caution in correlation with other red cell parameters and the patient's clinical condition. RDW 14.2 11.0 - 15.0 % [facility] RR PLATELETS 194 140 - 400 Thousand/u L [facility] MPV 9.1 7.5 - 12.[address] [facility] RR NEUTROPHIL ABSOLUTE 6,989 1,500 - 7,800 cells/uL [facility] RRL LYMPHOCYTE ABSOLUTE 1,718 850 - 3,900 cells/uL [facility] RRL MONOCYTE ABSOLUTE 653 200 - 950 cells/uL [facility] RRL EOSINOPHIL ABSOLUTE 182 15 - 500 cells/uL [facility] RRL BASOPHILS ABSOLUTE 58 0 - 200 cells/uL [facility] RRL NEUTROPHIL 72.8 % [facility] RRL LYMPHOCYTES 17.9 % [facility] RRL MONOCYTE 6.8 % [facility] RRL EOSINOPHILS 1.9 % [facility] RRL BASOPHILS 0.6 % [facility] RRL Comment: FASTING:YES FASTING: YES Test Performed at: [facility] [address] [place] [address] Bebeto Bauer Blood 12/01/2024 10:2 0 AM CDT 12/01/2024 10:20 AM CDT Khloe Galvin NP HEMATOLOGY ORDERABLES Final Result [facility] [phone] [facility] [address] [place] [address] * (ABNORMAL) COMPREHENSIVE METABOLIC PANEL (12/01/2024 10:20 AM CDT) GLUCOSE 208(H) 65 - 99 mg/dL [facility] Comment: Fasting reference interval For someone without known diabetes, a glucose value >125 mg/dL indicates that they may have diabetes and this should be confirmed with a follow-up test. BUN 41(H) 7 - 25 mg/dL [facility] CREATININE 1.68(H) 0.70 - 1.22 mg/dL [facility] GFR 40(L) > OR = 60 mL/min/1.7 3m2 [facility] BUN/CREAT RATIO 24(H) 6 - 22 (calc) [facility] SODIUM 139 135 - 146 mmol/L [facility] RRL POTASSIUM 5.2 3.5 - 5.3 mmol/L [facility] RRL CHLORIDE 104 98 - 110 mmol/L [facility] RRL CO2 31 20 - 32 mmol/L [facility] RRL CALCIUM 10.3 8.6 - 10.3 mg/dL [facility] RRL TOTAL PROTEIN 6.8 6.1 - 8.1 g/dL [facility] RRL ALBUMIN 4.1 3.6 - 5.1 g/dL [facility] RR GLOBULIN 2.7 1.9 - 3.7 g/dL (calc) [facility] RRL ALBUMIN/GLOBULIN RATIO 1.5 1.0 - 2.5 (calc) [facility] RR BILIRUBIN TOTAL 0.7 0.2 - 1.2 mg/dL [facility] RR ALKALINE PHOSPHATASE 105 35 - 144 U/L [facility] RRL AST 12 10 - 35 U/L [facility] RR ALT 14 9 - 46 U/L [facility] RRL Comment: FASTING:YES FASTING: YES Test Performed at: [facility] [address] [place] [address] Bebeto Bauer Blood 12/01/2024 10:2 0 AM CDT 12/01/2024 10:20 AM CDT Khloe Galvin NP CHEMISTRY ORDERABLES Final R esult [facility] [phone] [facility] [address] [place] [address] * (ABNORMAL) LIPID RFLX (05/15/2024 12:40 PM CDT) CHOLESTEROL 99 <200 mg/dL 05/15/2024 6:06 PM CDT [facility] TRIGLYCERIDE 92 <150 mg/dL 05/15/2024 6:06 PM CDT [facility] HDL 31(L) 40 - 59 mg/dL 05/15/2024 6:06 PM CDT [facility] LDL CALCULATED 50 <100 mg/dL 05/15/2024 6:06 PM CDT [facility] NON-HDL CHOLESTEROL 68 <130 mg/dL 05/15/2024 6:06 PM CDT [facility] Blood Venipuncture / Unknown 05/15/2024 12:40 PM CDT 05/15/2024 1:31 PM CDT Narrative [facility] - 05/15/2024 6:06 PM CDT TOTAL CHOLESTEROL [...] Mckoy MD CHEMISTRY ORDERABLES Final Re sult [facility] CLIA # [id number] [address] [place] [address] [place], [place] [id number] * (ABNORMAL) HEMOGLOBIN A1C (05/15/2024 12:40 PM CDT) HEMOGLOBIN A1C 7.6(H) <=5.6 % 05/15/2024 1:43 PM CDT [facility] EST. AVG GLUCOSE, A1C 171 mg/dL 05/15/2024 1:43 PM CDT [facility] Blood Venipuncture / Unknown 05/15/2024 12:40 PM CDT 05/15/2024 12:49 PM CDT Narrative [facility] - 05/15/2024 1:43 PM CDT HGB A1C INTERPRETATION NORMAL: <5.7% PRE-DIABETES: 5.7 - 6.4% DIABETES: 6.5% OR GREATER Jannet Mckoy MD CHEMISTRY ORDERABLES Final Re sult [facility] CLIA # [id number] [address] [place] [phone] from Last 3 Months or Most Recently Relevant to Health Maintenance Insurance [employer] O OPEN ACCESS MEDICARE PART A AND B [facility] Medicare Part D * Guarantor: 2020 [facility] ADMIN C AND D (C) Account Type Relation to Patient Date of Phone Billing Address Corporate Other DEFAULT ADDRESS [address] [place] * Guarantor: -[facility] D (C) Account Type Relation to Patient Date of Phone Billing Address Corporate Other DEFAULT ADDRESS [address] [place] * Guarantor: [facility] D (C) Account Type Relation to Patient Date of Phone Billing Address Corporate Other DEFAULT ADDRESS [address] [place] [address] Advance Directives For more information, please contact: [phone] * Full Code (Latest Code Status on File) Date Activated Date Inactivated Comments 09/05/2024 2:40 PM 09/12/2024 3:00 PM Care Teams Machine Chocolate Molder Relationship Specialty Start Date End Date Sam Fay MD PCP - General Emergency Medicine 12/22/18
--- OUTSIDE RECORDS SUMMARY | 2025-01-26 02:32 | XMS_ITS | Encounter Summary ---
Author Organization [facility] Address [address] [place] [address] Care Team Providers Care Shirt Operator Name Role Phone Sam Fay MD Primary Care Provider [phone] Encounter Details Date Type Department Care Team (Late st Contact Info) Description 12/03/[address] [facility] Primary Care - [address] [place] [address] Massimo Piña, DO NO ADDRESS ON FILE Social History Tobacco Use Types Packs/Day Years Used Date Smoking Tobacco: Never Assessed Sex and Gender Information Value Date Recorded Sex Assigned at Not on file Legal Sex Male 8:53 PM SPEECH AND HEARING DIRECTOR Gender Identity Not on file Sexual Orientation Not on file documented as of this encounter Plan of Treatment Upcoming Encounters Date Type Department Care Team (Late st Contact Info) Description 02/06/2025 10:30 AM SPEECH AND HEARING DIRECTOR Appointment [facility] Imaging Services [address] [place] [address] Khloe Galvin NP [address] [address] 03/14/2025 11:30 AM SPEECH AND HEARING DIRECTOR Office Visit [facility] Gastroenterology- [place] [address] [address] Khloe Galvin NP [address] [address] 03/22/2025 11:00 AM SPEECH AND HEARING DIRECTOR Appointment [facility] MRI [address] [place] [address] Khloe Galvin NP [address] [place] [address] 06/26/2025 2:45 PM CDT Office Visit [facility] [address] [facility] [address] [place] [address] Favio Polanco MD [address] [facility] [address] [place] [address] documented as of this encounter Visit Diagnoses Not on filedocumented in this encounter Additional Health Concerns Infection Onset Date Last Indicated Resolved Time R/O COVID-19 05/15/2024 05/15/2024 05/15/2024 1:12 PM CDT documented as of this encounter Care Teams Shirt Operator Relationship Specialty Start Date End Date Sam Fay MD PCP - General Emergency Medicine 12/22/18 documented as of this encounter
--- OUTSIDE RECORDS SUMMARY | 2025-01-26 02:32 | XMS_ITS | Encounter Summary ---
Author Organization [facility] Address [address] [place] [address] Care Team Providers Care Superintendent Sanitation Name Role Phone Sam Fay MD Primary Care Provider + [phone] Encounter Details Date Type Department Care Team (Late st Contact Info) Description 01/24/2025 External Device Data [facility] ABSTRACTION [...] on file Legal Sex Male 8:53 PM INSTRUMENT ENGINEER Gender Identity Not on file Sexual Orientation Not on file documented as of this encounter Plan of Treatment Upcoming Encounters Date Type Department Care Team (Late st Contact Info) Description 02/06/2025 10:30 AM INSTRUMENT ENGINEER Appointment [facility] Imaging Services [address] [place] [address] Khloe Galvin NP [address] [phone] 03/14/2025 11:30 AM INSTRUMENT ENGINEER Office Visit [facility] Gastroenterology- [place] [facility] [place] [phone] Khloe Galvin QUALITY ASSURANCE ANALYST [address] [address] 03/22/2025 11:00 AM INSTRUMENT ENGINEER Appointment [facility] MRI [address] [place] [address] Khloe Galvin NP [address] [address] 06/26/2025 2:45 PM CDT Office Visit [facility] [address] [facility] [address] [place] [address] Favio Polanco MD [address] [facility] [address] [place] [address] documented as of this encounter Visit Diagnoses Not on filedocumented in this encounter Care Teams Superintendent Sanitation Relationship Specialty Start Date End Date Sam Fay MD PCP - General Emergency Medicine 12/22/18 documented as of this encounter
--- OUTSIDE RECORDS SUMMARY | 2025-01-26 02:32 | XMS_ITS | Encounter Summary ---
Author Organization [facility] Address [address] [place] [address] Care Team Providers Care Sap Pp Consultant Name Role Phone Sam Fay MD Primary Care Provider [phone] Encounter Details Date Type Department Care Team (Late st Contact Info) Description 12/26/1999 Outpatient Historical [facility] Primary Care - [address] [place] [address] Massimo Piña, DO NO ADDRESS ON FILE Social History Tobacco Use Types Packs/Day Years Used Date Smoking Tobacco: Never Assessed Sex and Gender Information Value Date Recorded Sex Assigned at Not on file Legal Sex Male 8:53 PM LINSEED OIL BOILER Gender Identity Not on file Sexual Orientation Not on file documented as of this encounter Plan of Treatment Upcoming Encounters Date Type Department Care Team (Late st Contact Info) Description 02/06/2025 10:30 AM LINSEED OIL BOILER Appointment [facility] Imaging Services [address] [place] [address] Khloe Galvin NP [address] [address] 03/14/2025 11:30 AM LINSEED OIL BOILER Office Visit [facility] Gastroenterology- [place] [address] [address] Khloe Galvin NP [address] [address] 03/22/2025 11:00 AM LINSEED OIL BOILER Appointment [facility] MRI [address] [place] [address] hKloe Galvin NP [address] [place] [address] 06/26/2025 2:45 PM CDT Office Visit [facility] [address] [facility] [address] [place] [address] Favio Polanco MD [address] [facility] [address] [place] [address] documented as of this encounter Visit Diagnoses Not on filedocumented in this encounter Additional Health Concerns Infection Onset Date Last Indicated Resolved Time R/O COVID-19 05/15/2024 05/15/2024 05/15/2024 1:12 PM CDT documented as of this encounter Care Teams Sap Pp Consultant Relationship Specialty Start Date End Date Sam Fay MD PCP - General Emergency Medicine 12/22/18 documented as of this encounter
--- OUTSIDE RECORDS SUMMARY | 2025-01-26 02:32 | XMS_ITS | Encounter Summary ---
Author Organization [facility] Address [address] [place] [address] Care Team Providers Care Bilingual Office Assistant Name Role Phone Sam Fay MD Primary Care Provider [phone] Encounter Details Date Type Department Care Team (Late st Contact Info) Description 10/11/1998 Outpatient Historical [facility] Primary Care - [address] [place] [address] Massimo Piña, DO NO ADDRESS ON FILE Social History Tobacco Use Types Packs/Day Years Used Date Smoking Tobacco: Never Assessed Sex and Gender Information Value Date Recorded Sex Assigned at Not on file Legal Sex Male 8:53 PM OPENER VERIFIER PACKER CUSTOMS Gender Identity Not on file Sexual Orientation Not on file documented as of this encounter Plan of Treatment Upcoming Encounters Date Type Department Care Team (Late st Contact Info) Description 02/06/2025 10:30 AM OPENER VERIFIER PACKER CUSTOMS Appointment [facility] Imaging Services [address] [place] [address] Khloe Galvin NP [address] [address] 03/14/2025 11:30 AM OPENER VERIFIER PACKER CUSTOMS Office Visit [facility]3] Gastroenterology- [place] [address] [address] Khloe Galvin NP [address] [address] 03/22/2025 11:00 AM OPENER VERIFIER PACKER CUSTOMS Appointment [facility] MRI [address] [place] [address] Khloe Galvin NP [address] [place] [address] 06/26/2025 2:45 PM CDT Office Visit [facility] [address] [facility] [address] [place] [address] Favio Polanco MD [address] [facility] [address] [place] [address] documented as of this encounter Visit Diagnoses Not on filedocumented in this encounter Additional Health Concerns Infection Onset Date Last Indicated Resolved Time R/O COVID-19 05/15/2024 05/15/2024 05/15/2024 1:12 PM CDT documented as of this encounter Care Teams Bilingual Office Assistant Relationship Specialty Start Date End Date Sam Fay MD PCP - General Emergency Medicine 12/22/18 documented as of this encounter
--- OUTSIDE RECORDS SUMMARY | 2025-01-26 02:32 | XMS_ITS | Encounter Summary ---
Author Organization [facility] Address [address] [place] [address] Care Team Providers Care Manager Chemistry Name Role Phone Sam Fay MD Primary Care Provider [phone] Encounter Details Date Type Department Care Team (Late st Contact Info) Description 01/15/1999 Outpatient Historical [facility] Primary Care - [address] [place] [address] Massimo Piña, DO NO ADDRESS ON FILE Social History Tobacco Use Types Packs/Day Years Used Date Smoking Tobacco: Never Assessed Sex and Gender Information Value Date Recorded Sex Assigned at Not on file Legal Sex Male 8:53 PM MACHINE I ENGRAVER Gender Identity Not on file Sexual Orientation Not on file documented as of this encounter Plan of Treatment Upcoming Encounters Date Type Department Care Team (Late st Contact Info) Description 02/06/2025 10:30 AM MACHINE I ENGRAVER Appointment [facility] [address] [place] [address] Khloe Galvin NP [address] [address] 03/14/2025 11:30 AM MACHINE I ENGRAVER Office Visit [facility] Gastroenterology- [place] [address] [address] Khloe Galvin NP [address] [address] 03/22/2025 11:00 AM MACHINE I ENGRAVER Appointment [facility] [address] [place] [address] Khloe Galvin NP [address] [place] [address] 06/26/2025 2:45 PM CDT Office Visit [facility] [address] [facility] [address] [place] [address] Favio Polanco MD [address] [facility] [address] [place] [address] documented as of this encounter Visit Diagnoses Not on filedocumented in this encounter Additional Health Concerns Infection Onset Date Last Indicated Resolved Time R/O COVID-19 05/15/2024 05/15/2024 05/15/2024 1:12 PM CDT documented as of this encounter Care Teams Manager Chemistry Relationship Specialty Start Date End Date Sam Fay MD PCP - General Emergency Medicine 12/22/18 documented as of this encounter
--- OUTSIDE RECORDS SUMMARY | 2025-01-26 02:32 | XMS_ITS | Encounter Summary ---
Author Organization [facility] Address [address] [place] [address] Care Team Providers Care Director Of Environmental Services Name Role Phone Sam Fay MD Primary Care Provider [phone] Encounter Details Date Type Department Care Team (Late st Contact Info) Description 06/26/2000 Outpatient Historical [facility] Primary Care - [address] [place] [address] Massimo Piña, DO NO ADDRESS ON FILE Social History Tobacco Use Types Packs/Day Years Used Date Smoking Tobacco: Never Assessed Sex and Gender Information Value Date Recorded Sex Assigned at Not on file Legal Sex Male 8:53 PM ASSEMBLER BODY Gender Identity Not on file Sexual Orientation Not on file documented as of this encounter Plan of Treatment Upcoming Encounters Date Type Department Care Team (Late st Contact Info) Description 02/06/2025 10:30 AM ASSEMBLER BODY Appointment [facility] [address] [place] [address] Klhoe Galvin NP [address] [address] 03/14/2025 11:30 AM ASSEMBLER BODY Office Visit [facility] Gastroenterology- [place] [address] [address] Khloe Galvin NP [address] [address] 03/22/2025 11:00 AM ASSEMBLER BODY Appointment [facility] MRI [address] [place] [address] Khloe Galvin NP [address] [place] [address] 06/26/2025 2:45 PM CDT Office Visit [facility] [address] [facility] [address] [place] [address] Favio Polanco MD [address] [facility] [address] [place] [address] documented as of this encounter Visit Diagnoses Not on filedocumented in this encounter Additional Health Concerns Infection Onset Date Last Indicated Resolved Time R/O COVID-19 05/15/2024 05/15/2024 05/15/2024 1:12 PM CDT documented as of this encounter Care Teams Director Of Environmental Services Relationship Specialty Start Date End Date Sam Fay MD PCP - General Emergency Medicine 12/22/18 documented as of this encounter
--- OUTSIDE RECORDS SUMMARY | 2025-01-26 02:32 | XMS_ITS | Encounter Summary ---
Author Organization Address [address] [place] [address] Care Team Providers Care Denture Model Maker Name Role Phone Sam Fay MD Primary Care Provider [phone] Encounter Details Date Type Department Care Team (Late st Contact Info) Description 02/03/2000 Outpatient Historical [facility] Primary Care - [address] [place] [address] Massimo Piña, DO NO ADDRESS ON FILE Social History Tobacco Use Types Packs/Day Years Used Date Smoking Tobacco: Never Assessed Sex and Gender Information Value Date Recorded Sex Assigned at Not on file Legal Sex Male 8:53 PM BUSHLER Gender Identity Not on file Sexual Orientation Not on file documented as of this encounter Plan of Treatment Upcoming Encounters Date Type Department Care Team (Late st Contact Info) Description 02/06/2025 10:30 AM BUSHLER Appointment [facility] Services [address] [place] [address] Khloe Galvin NP [address] [address] 03/14/2025 11:30 AM BUSHLER Office Visit [facility] Gastroenterology- [place] [address] [address] Khloe Galvin NP [address] [address] 03/22/2025 11:00 AM BUSHLER Appointment [facility] MRI [address] [place] [address] Khloe Galvin NP [address] [place] [address] 06/26/2025 2:45 PM CDT Office Visit [facility] [address] [facility] [address] [place] [address] Favio Polanco MD [address] [facility] [address] [place] [address] documented as of this encounter Visit Diagnoses Not on filedocumented in this encounter Additional Health Concerns Infection Onset Date Last Indicated Resolved Time R/O COVID-19 05/15/2024 05/15/2024 05/15/2024 1:12 PM CDT documented as of this encounter Care Teams Denture Model Maker Relationship Specialty Start Date End Date Sam Fay MD PCP - General Emergency Medicine 12/22/18 documented as of this encounter
--- OUTSIDE RECORDS SUMMARY | 2025-01-26 02:32 | XMS_ITS | Encounter Summary ---
Author Organization [facility] Address [address] [place] [address] Care Team Providers Care Head Greenskeeper Name Role Phone Sam Fay MD Primary Care Provider [phone] Encounter Details Date Type Department Care Team (Late st Contact Info) Description 01/09/2000 Outpatient Historical [facility] Primary Care - [address] [place] [address] Massimo Piña, DO NO ADDRESS ON FILE Social History Tobacco Use Types Packs/Day Years Used Date Smoking Tobacco: Never Assessed Sex and Gender Information Value Date Recorded Sex Assigned at Not on file Legal Sex Male 8:53 PM TELEPHONE SALES AGENT Gender Identity Not on file Sexual Orientation Not on file documented as of this encounter Plan of Treatment Upcoming Encounters Date Type Department Care Team (Late st Contact Info) Description 02/06/2025 10:30 AM TELEPHONE SALES AGENT Appointment [facility] [address] [place] [address] Khloe Galvin NP [address] [address] 03/14/2025 11:30 AM TELEPHONE SALES AGENT Office Visit [facility] Gastroenterology- [place] [address] [address] Khloe Galvin NP [address] [address] 03/22/2025 11:00 AM TELEPHONE SALES AGENT Appointment [facility] [address] [place] [address] Khloe Galvin NP [address] [place] [address] 06/26/2025 2:45 PM CDT Office Visit [facility] [address] [facility] [address] [place] [address] Favio Polanco MD [address] [facility] [address] [place] [address] documented as of this encounter Visit Diagnoses Not on filedocumented in this encounter Additional Health Concerns Infection Onset Date Last Indicated Resolved Time R/O COVID-19 05/15/2024 05/15/2024 05/15/2024 1:12 PM CDT documented as of this encounter Care Teams Head Greenskeeper Relationship Specialty Start Date End Date Sam Fay MD PCP - General Emergency Medicine 12/22/18 documented as of this encounter
--- OUTSIDE RECORDS SUMMARY | 2025-01-26 02:32 | XMS_ITS | Encounter Summary ---
Author Organization [facility] Address [address] [place] [address] Care Team Providers Care Tankerman Name Role Phone Sam Fay MD Primary Care Provider [phone] Encounter Details Date Type Department Care Team (Late st Contact Info) Description 03/12/2000 Outpatient Historical [facility] Primary Care - [address] [place] [address] Massimo Piña, DO NO ADDRESS ON FILE Social History Tobacco Use Types Packs/Day Years Used Date Smoking Tobacco: Never Assessed Sex and Gender Information Value Date Recorded Sex Assigned at Not on file Legal Sex Male 8:53 PM LIFE SCIENTIST Gender Identity Not on file Sexual Orientation Not on file documented as of this encounter Plan of Treatment Upcoming Encounters Date Type Department Care Team (Late st Contact Info) Description 02/06/2025 10:30 AM LIFE SCIENTIST Appointment [facility] Imaging Services [address] [place] [address] Khloe Galvin NP [address] [address] 03/14/2025 11:30 AM LIFE SCIENTIST Office Visit [facility] Gastroenterology- [place] [address] [address] Khloe Galvin NP [address] [address] 03/22/2025 11:00 AM LIFE SCIENTIST Appointment [facility] MRI [address] [place] [address] Khloe Galvin NP [address] [place] [address] 06/26/2025 2:45 PM CDT Office Visit [facility] [address] [facility] [address] [place] [address] Favio Polanco MD [address] [facility] [address] [place] [address] documented as of this encounter Visit Diagnoses Not on filedocumented in this encounter Additional Health Concerns Infection Onset Date Last Indicated Resolved Time R/O COVID-19 05/15/2024 05/15/2024 05/15/2024 1:12 PM CDT documented as of this encounter Care Teams Tankerman Relationship Specialty Start Date End Date Sam Fay MD PCP - General Emergency Medicine 12/22/18 documented as of this encounter
[2025-01-26] MEDS: oxyCODONE 5 mg IR Tab/Cap PO (03:03)
--- NOTE | 2025-01-26 03:37 | XRR_ITS ---
PROCEDURE INFORMATION: Exam: XR Left Shoulder Exam date and time: 01/26/2025 3:12 AM Age: 84 years old Clinical indication: Injury or trauma; Fall; Blunt trauma (contusions or hematomas); Shoulder; Bilateral; Additional info: L shoulder TECHNIQUE: Imaging protocol: Radiologic exam of the left shoulder. Views: 2 or more views. COMPARISON: CR (CHEST, ) 01/26/2025 3:06 AM FINDINGS: Bones/joints: No acute fracture or dislocation. Diffuse osseous demineralization. Moderate degenerative changes of the acromioclavicular joint. Soft tissues: Normal. XR/XR shoulder LT min 2V* [id number] IMPRESSION: No acute fracture or dislocation.
--- NOTE | 2025-01-26 03:44 | W.ED.FALL ---
HPI - Fall General: Chief Complaint: Fall Stated Complaint: fall - head injury Time Seen by Provider: 01/26/25 02:25 History of Present Illness: Patient is an 84-year-old male with a history of atrial fibrillation on warfarin, frequent falls, CKD, hypertension, CHF, CAD, BPH who presents after a fall at home. The patient reports slipping on a slippery surface in the bathroom and falling mostly face first but partially breaking his fall with his hands, probable brief LOC, no severe headache, confusion, vomiting since. He also has pain to his bilateral shoulders and knees, has some scrapes and mild amount of bleeding to his face. He lives at home with his son, states falls are a fairly frequent occurrence. Denies any chest pain, shortness of breath, lightheadedness just prior to fall. His last dose of warfarin was yesterday. Related Data Home Medications ?Medication ?Instructions ?Recorded ?Confirmed atorvastatin 80 mg tablet 80 mg PO QPM 03/31/19 07/30/23 calcium polycarbophil 625 mg tablet 1,250 mg PO DAILY 03/31/19 07/30/23 magnesium oxide 400 mg (241.3 mg 400 mg PO BID 03/31/19 07/30/23 magnesium) tablet (MagOx) omeprazole 20 mg tablet,delayed 20 mg PO BID 03/31/19 07/30/23 release cholecalciferol (vitamin D3) 50 2,000 unit PO QPM 02/14/20 07/30/23 mcg (2,000 unit) tablet (Vitamin D3) aspirin 81 mg tablet,delayed 81 mg PO BEDTIME 07/20/20 07/30/23 release finasteride 5 mg tablet 5 mg PO QPM 07/20/20 07/30/23 duloxetine 20 mg capsule,delayed 40 mg PO DAILY 09/05/22 07/30/23 release memantine 5 mg tablet 5 mg PO BID 09/05/22 07/30/23 semaglutide 0.25 mg or 0.5 mg (2 0.5 mg SUBCUT Q7D 09/05/22 07/30/23 mg/3 mL) subcutaneous pen injector (Ozempic) buspirone 10 mg tablet 5 mg PO TID 04/14/23 07/30/23 pyridoxine (vitamin B6) 100 mg 100 mg PO QAM 04/14/23 07/30/23 tablet (Vitamin B-6) vitamin B complex 2 tab PO QAM 04/14/23 07/30/23 acetaminophen 500 mg tablet 500 mg PO QID PRN Pain 07/09/23 07/30/23 carvedilol 3.125 mg tablet 3.125 mg PO BID 07/09/23 07/30/23 fluoride (sodium) 1.1 % dental 1 applic dental DAILY 07/09/23 07/30/23 cream (Sodium Fluoride 5000 Plus) furosemide 40 mg tablet 40 mg PO QAM PRN Edema 07/09/23 07/30/23 midodrine 10 mg tablet 10 mg PO TID PRN LOW BLOOD 07/09/23 07/30/23 omega 4-tek-dde-fish oil 1,000 mg 1 cap PO BID 07/09/23 07/30/23 (120 mg-180 mg) capsule (Fish Oil) potassium chloride 20 mEq 20 meq PO DAILY PRN with lasix 07/09/23 07/30/23 tablet,extended release(part/cryst) insulin glargine 100 unit/mL 20 unit SUBCUT BEDTIME 07/30/23 07/30/23 subcutaneous solution (Lantus U-100 Insulin) Previous Rx's ?Medication ?Instructions ?Recorded tamsulosin 0.4 mg capsule 0.4 mg PO BID #180 caps 09/27/20 albuterol sulfate 90 mcg/actuation 2 inh inhalation Q4H PRN shortness 04/04/23 aerosol inhaler of breath or wheezing #6.7 grams diabetic shoes with 3 inserts #1 ea 05/29/23 apixaban 5 mg tablet (Eliquis) See Rx Instructions .Route 08/05/23 .COMPLEX #90 tabs cephalexin 500 mg capsule 500 mg PO BID #10 caps 01/26/25 diazepam 5 mg tablet (Valium) 5 mg PO BID PRN muscle spasm #6 01/26/25 tabs tizanidine 2 mg capsule 2 mg PO BID PRN muscle spasticity 01/26/25 #14 caps Allergies Allergy/AdvReac Type Severity Reaction Status Date / Time lisinopril Allergy ALGY-Rash Verified 01/26/25 02:21 Review of Systems General: Reports: 10 or more systems reviewed and unremarkable except in HPI and below Musc: Reports: extremity pain and extremity swelling PFSH ED PFSH: Medical History (Updated 01/26/25 @ 05:09 by Bashir Galan DO) Depression Chronic kidney disease Hyperlipidemia Atrial fibrillation Urgency incontinence Benign prostatic hyperplasia with lower urinary tract symptoms Urolithiasis Carotid bruit Syncope Diabetes mellitus Hypertension CHF (congestive heart failure) CAD (coronary artery disease) This patient had a coronary bypass surgery in 2008 along with a mitral valve repair and a maze procedure, at the [facility] in [place]. Surgical History History of tonsillectomy and adenoidectomy History of loop recorder placed late 2020 or early 2021 H/O carpal tunnel repair bilateral S/P trigger finger release History of maze procedure History of mitral valve replacement with bioprosthetic valve S/P ureteral stent placement Hx of CABG Family History Mother , AT AGE 86 No problems noted. Father , AT AGE 65 Stroke Other Hyperlipidemia Hypertension Social History Smoking and tobacco/nicotine status: unknown if used tobacco/nicotine Alcohol intake: never Substance/Drug Use: never Lives independently: Yes Marital status: / Current occupational status: retired Physical Exam Narrative: EXAM NARRATIVE: Overall well-appearing, afebrile, vital signs stable on arrival, no acute distress. HEENT exam with bruising and dried bleeding to bridge of nose, left forehead, left side of face. No dental injury obvious, no intraoral bleeding, airway widely patent, able to bite down without significant pain. Pupils equal round reactive. No C-spine tenderness, no chest wall or abdominal tenderness. Bilateral anterior shoulder tenderness, 5 out of 5 motor and sensation to upper extremities, compartments soft. Bilateral knees with scattered ecchymosis and dried blood, no obvious deformity, 5 out of 5 motor and sensation to his bilateral lower extremities. Course Vital Signs: Vital signs: Vital Signs Temperature 97.8 F 01/26/25 02:13 Pulse Rate 73 01/26/25 05:34 Respiratory Rate 16 01/26/25 04:57 Blood Pressure 121/79 01/26/25 05:34 Pulse Oximetry 94 01/26/25 05:34 Oxygen Delivery Me thod Room Air 01/26/25 02:13 MDM - Fall Medical Decision Making -ddx: Mechanical fall, acute blood loss, bony contusion, soft tissue injury, shoulder fracture versus dislocation, patellar fracture, nasal bone fracture - Patient overall well-appearing, with seeming mechanical fall, will image affected body parts including CT head/C-spine/facial bones and extremity x-rays, get basic and coagulopathic labs, provide oxycodone and reassess. Has had multiple falls and states that his tetanus is up-to-date. - Patient with relatively reassuring traumatic imaging, negative extremity x-rays for any fracture, dislocation, CT of his head, C-spine and face with no intracranial bleed, no vertebral fracture, did have a nondisplaced nasal bone fracture, with his slight superficial laceration on top of this, we will place him on 5 days of Keflex even though do not true open fracture at this time. Wound was cleaned by bedside nurse and he improved with a muscle relaxant, able to ambulate without issue and discharged in stable condition with son at bedside, encouraged to follow-up with PCP later this week for reevaluation, strict return precautions given. Lab Data 01/26/25 04:08 01/26/25 04:08 Radiology Impressions Cervical Spine CT 01/26/25 02:32 IMPRESSION: 1. No acute cervical spine fracture or subluxation. 2. Multilevel degenerative changes. Chest X-Ray 01/26/25 02:32 IMPRESSION: No pneumonia. Face CT 01/26/25 02:32 IMPRESSION: Nondisplaced fracture of the nasal bridge. Overlying soft tissue swelling. Head CT 01/26/25 02:32 IMPRESSION: 1. No acute intracranial hemorrhage. No midline shift or mass effect. 2. Forehead soft tissue swelling. Knee X-Ray 01/26/25 02:32 IMPRESSION: 1. Severe joint space narrowing of the medial compartment. 2. No acute fracture or dislocation. Pelvis X-Ray 01/26/25 02:32 IMPRESSION: No acute fracture or dislocation. Shoulder X-Ray 01/26/25 03:37 IMPRESSION: No acute fracture or dislocation. Laboratory Results WBC 10.34 10^3/uL (3.29-11.43) 01/26/25 04:08 RBC 5.03 10^6/uL (3.85-5.65) 01/26/25 04:08 Hgb 15.40 g/dL (11.27-16.99) 01/26/25 04:08 Hct 47.2 % (37-53) 01/26/25 04:08 MCV 93.8 fl (82-101) 01/26/25 04:08 MCH 30.6 pg (27-33) 01/26/25 04:08 MCHC 32.6 g/dL (30-55) 01/26/25 04:08 RDW 13.7 % (12.1-15.1) 01/26/25 04:08 Plt Count 141 10^3/cmm (157-399) L 01/26/25 04:08 MPV 9.0 fL (7.4-10.4) 01/26/25 04:08 Neut % (Auto) 79.1 % 01/26/25 04:08 Lymph % (Auto) 12.1 % 01/26/25 04:08 [place] % (Auto) 5.9 % 01/26/25 04:08 Eos % (Auto) 1.6 % 01/26/25 04:08 Baso % (Auto) 0.6 % 01/26/25 04:08 Neut # (Auto) 8.18 10^3/uL (1.8-7.7) H 01/26/25 04:08 Lymph # (Auto) 1.3 10^3/uL (0.8-4.8) 01/26/25 04:08 [place] # (Auto) 0.6 10^3/uL (0.2-0.9) 01/26/25 04:08 Eos # (Auto) 0.2 10^3/uL (0.0-0.8) 01/26/25 04:08 Baso # (Auto) 0.1 10^3/uL (0.0-0.1) 01/26/25 04:08 Nucleated RBC % (auto) 0 % 01/26/25 04:08 Nucleated RBCs # 0.0 /100WBC 01/26/25 04:08 PT 13.50 SECONDS (12.1-14.9) 01/26/25 04:08 INR 0.96 (0.8-1.2) 01/26/25 04:08 Sodium 137 mmol/L (136-145) 01/26/25 04:08 Potassium 5.0 mmol/L (3.5-5.1) 01/26/25 04:08 Chloride 103 mmol/L (98-107) 01/26/25 04:08 Carbon Dioxide 26 mmol/L (22-29) 01/26/25 04:08 Anion Gap 13.0 (5-19) 01/26/25 04:08 BUN 39 mg/dL (8-23) H 01/26/25 04:08 Creatinine 1.8 mg/dL (0.7-1.2) H 01/26/25 04:08 GFR Calculation Not Reportable 01/26/25 04:08 Glucose 172 mg/dL (65-115) H 01/26/25 04:08 Calculated Osmolality 297 mOsm/kg (285-295) H 01/26/25 04:08 Calcium 9.8 mg/dL (8.5-10.5) 01/26/25 04:08 Total Bilirubin 0.6 mg/dL (0.15-1.2) 01/26/25 04:08 AST 15 U/L (0-40) 01/26/25 04:08 ALT 17 U/L (0-41) 01/26/25 04:08 Alkaline Phosphatase 109 U/L (40-130) 01/26/25 04:08 Total Protein 7.1 g/dL (6.6-8.7) 01/26/25 04:08 Albumin 4.2 g/dL (3.5-5.2) 01/26/25 04:08 Globulin 2.9 g/dL (1.3-4.6) 01/26/25 04:08 All radiology interpretation(s) finalized by discharge Discharge Plan Discharge Patient Disposition: Home Clinical Impression: Closed fracture nasal bone Fall Qualifiers: Encounter type: initial encounter Qualified Code(s): W19.XXXA - Unspecified fall, initial encounter Condition: Stable Prescriptions: New tizanidine 2 mg capsule 2 mg PO BID PRN (Reason: muscle spasticity) Qty: 14 0RF cephalexin 500 mg capsule 500 mg PO BID Qty: 10 0RF diazepam [Valium] 5 mg tablet 5 mg PO BID PRN (Reason: muscle spasm) Qty: 6 0RF No Action tamsulosin 0.4 mg capsule 0.4 mg PO BID Qty: 180 3RF memantine 5 mg tablet 5 mg PO BID duloxetine 20 mg capsule,delayed release(DR/EC) 40 mg PO DAILY Ozempic 0.25 mg or 0.5 mg (2 mg/3 mL) pen injector 0.5 mg SUBCUT Q7D Rx Instructions: ON THURSDAY (DME) diabetic chris with 3 inserts See Rx Instructions .Route .MEDSUPPLY Qty: 1 0RF Rx Instructions: As directed to the sigrid woo Eliquis 5 mg tablet See Rx Instructions .ROUTE .COMPLEX Qty: 90 3RF Dose Instruction: TAKE ONE-HALF TABLET BY MOUTH TWICE A DAY FOR ATRIAL FIBRILLATION. THIS TABLET IS TO BE CUT IN HALF FOR YOUR DOSE Rx Instructions: TAKE ONE-HALF TABLET BY MOUTH TWICE A DAY FOR ATRIAL FIBRILLATION. THIS TABLET IS TO BE CUT IN HALF FOR YOUR DOSE atorvastatin 80 mg Tablet 80 mg PO QPM magnesium oxide [MagOx] 400 mg (241.3 mg magnesium) Tablet 400 mg PO BID calcium polycarbophil 625 mg Tablet 1,250 mg PO DAILY omeprazole 20 mg Tablet,Delayed Release (Dr/Ec) 20 mg PO BID cholecalciferol (vitamin D3) [Vitamin D3] 50 mcg (2,000 unit) tablet 2,000 unit PO QPM aspirin 81 mg Tablet,Delayed Release (Dr/Ec) 81 mg PO BEDTIME finasteride 5 mg Tablet 5 mg PO QPM buspirone 10 mg Tablet 5 mg PO TID vitamin B complex Tablet 2 tab PO QAM pyridoxine (vitamin B6) [Vitamin B-6] 100 mg Tablet 100 mg PO QAM furosemide 40 mg tablet 40 mg PO QAM PRN (Reason: Edema) acetaminophen 500 mg Tablet 500 mg PO QID PRN (Reason: Pain) carvedilol 3.125 mg Tablet 3.125 mg PO BID Rx Instructions: must administer with a meal/food potassium chloride 20 mEq tablet,ER particles/crystals 20 meq PO DAILY PRN (Reason: with lasix) midodrine 10 mg tablet 10 mg PO TID PRN (Reason: LOW BLOOD) fluoride (sodium) [Sodium Fluoride 5000 Plus] 1.1 % Cream 1 applic DENTAL DAILY omega 9-ykd-djd-fish oil [Fish Oil] 1,000 mg (120 mg-180 mg) Capsule 1 cap PO BID albuterol sulfate 90 mcg/actuation HFA aerosol inhaler 2 inh INHALATION Q4H PRN (Reason: shortness of breath or wheezing) Qty: 6.7 1RF Lantus U-100 Insulin 100 unit/mL solution 20 unit SUBCUT BEDTIME Discharge Orders: Discharge ED (Routine); Ordered 01/26/25 Ordered By: Bashir Galan Referrals: Lena Orellana MD [Primary Care Provider, [facility]] Patient Instructions: Opioid Safety, Pain Management, Patient Portal & [place] Instructions Activity Restrictions/Additional Instructions: You were seen after a fall, you were evaluated with CT, x-rays and labs which were ultimately reassuring. Because of your fall, you were found to have a nasal bone fracture but this was not out of place and this should heal properly on its own, use ice packs 20 minutes at a time every few hours to help with the swelling. Because you have a cut and an underlying fracture, you will be treated with 5 days of prophylactic antibiotics, take the Keflex 500 mg for a total of 5 days, every 12 hours. Take this with food if possible. For any resulting muscle spasms or cramps, use the tizanidine, 2 mg every 12 hours as needed. Return to the ED with recurrent falls, severe bleeding, episodes of passing out, breathing difficulties, any other emergent concerns. Print Language: Kinyarwanda Coding Level of Care Code ED Transitional Care Liaison for Nathaniel Alicea
[2025-01-26 04:25] LABS: Hematocrit 47.2 % (37-53); Hemoglobin 15.40 g/dL (11.27-16.99); Mean Corpuscular HGB Conc 32.6 g/dL (30-55); Mean Corpuscular Hemoglobin 30.6 pg (27-33); Mean Corpuscular Volume 93.8 fl (82-101); Nucleated Red Blood Cells % 0 %; Platelet Count 141 10^3/cmm (157-399); Red Blood Count 5.03 10^6/uL (3.85-5.65); White Blood Count 10.34 10^3/uL (3.29-11.43)
[2025-01-26 04:36] LABS: INR 0.96 (0.8-1.2); Prothrombin Time 13.50 SECONDS (12.1-14.9)
[2025-01-26 04:41] LABS: Alanine Aminotransferase 17 U/L (0-41); Albumin Level 4.2 g/dL (3.5-5.2); Alkaline Phosphatase 109 U/L (40-130); Anion Gap 13.0 (5-19); Aspartate Amino Transferase 15 U/L (0-40); Blood Urea Nitrogen 39 mg/dL (8-23); Calcium 9.8 mg/dL (8.5-10.5); Carbon Dioxide 26 mmol/L (22-29); Chloride 103 mmol/L (98-107); Globulin 2.9 g/dL (1.3-4.6); Glucose 172 mg/dL (65-115); Osmolality Calculated 297 mOsm/kg (285-295); Potassium 5.0 mmol/L (3.5-5.1); Sodium 137 mmol/L (136-145); Total Protein 7.1 g/dL (6.6-8.7)
== END 2025-01-26 05:35 | disposition home or self-care (01) ==
PROVIDERS: Emergency Provider Student in an Organized Health Care Education/Training Program; PCP Family Medicine
DX: S02.2XXA Fracture of nasal bones, initial encounter for closed fracture (principal); W19.XXXA Unspecified fall, initial encounter; Z79.01 Long term (current) use of anticoagulants; Z79.82 Long term (current) use of aspirin; I25.10 Atherosclerotic heart disease of native coronary artery without angina pectoris; E78.5 Hyperlipidemia, unspecified; E11.22 Type 2 diabetes mellitus with diabetic chronic kidney disease; I13.0 Hypertensive heart and chronic kidney disease with heart failure and stage 1 through stage 4 chronic kidney disease, or unspecified chronic kidney disease; N18.9 Chronic kidney disease, unspecified; I50.9 Heart failure, unspecified; Z95.1 Presence of aortocoronary bypass graft
CPT/HCPCS: 36415; 70450; 70486; 71045; 72125; 72170; 73030; 73562; 80053; 85025; 85610; 93005; 99285; J9999

== ENCOUNTER 2025-02-21 22:15 | Observation (INO) | payer OTHER, SELFPAY ==
--- OUTSIDE RECORDS SUMMARY | 2025-02-15 09:00 | XMS_ITS | Encounter Summary ---
Author Organization [facility] Address [address] [place] [address] Care Team Providers Care Medical Record Consultant Name Role Phone Sam Fay MD Primary Care Provider [phone] Reason for Referral * Radiology Services (Routine) - Closed Specialty Diagnoses / Procedures Referred By Dg mai Referred To Contact Radiology Diagnoses Odynophagia History of Marcelo esophagus Procedures XR VIDEO SWALLOW W SPEECH Khloe Galvin NP [address] [address] Phone: tel: fax: 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 [address] 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 Skip dose if heart rate less than 60bpm 45 Tablet 3 11/01/2024 empagliflozin (Jardiance) 10 mg tablet Take 1 Tablet (10 mg) by mouth daily in the morning. 100 Tablet 3 09/19/2024 furosemide (LASIX) 20 mg tablet Take 1 Tablet (20 mg) by mouth 1 time daily as needed for Other (See Comment) (Weight gain more than 3 pounds in 24 hours or over 5 pounds in any period of time associated with shortness of breath, swelling in legs). 30 Tablet 2 09/12/2024 12:45 PM CDT 09/12/2024 magnesium oxide (MAG-OX) 400 mg (241.3 mg magnesium) tablet 02/01/2024 memantine (NAMENDA) 5 mg Tablet Take 5 mg by mouth. 04/06/2024 potassium CHLORIDE (KLOR-CON M20) 20 mEq Extended Release tablet Take 20 mEq by mouth. 04/17/2023 busPIRone (BUSPAR) 5 mg tablet Take 5 mg by mouth 3 times daily. Fiber-Lax 625 mg tablet 02/01/2024 cholecalciferol, vitamin D3, 1,000 unit 02/01/2024 DULoxetine (CYMBALTA) 20 mg Capsule, Delayed Release(E.C.) Take 40 mg by mouth. 10/26/2023 omeprazole (PriLOSEC) 20 mg Capsule, Delayed Release(E.C.) Take 20 mg by mouth. 12/22/2018 acetaminophen (TYLENOL) 500 mg tablet Take 500 mg by mouth every 6 hours as needed. 12/22/2018 fluoride, sodium, (ETHEDENT) 1.1 % Cream by dental route. 12/22/2018 tamsulosin (FLOMAX) 0.4 mg capsule Take 0.4 mg by mouth. 12/22/2018 insulin aspart U-100 (NovoLOG) 100 unit/mL vial Inject by subcutaneous injection 3 times daily with meals. 12/22/2018 insulin glargine (LANTUS) 100 unit/mL vial Inject 25 Units by subcutaneous injection daily at bedtime. 12/22/2018 finasteride (PROSCAR) 5 mg tablet Take 5 mg by mouth. 12/22/2018 polyethylene glycol 3350 (MIRALAX) 17 gram/dose Powder Take 17 Grams by mouth. 12/22/2018 atorvastatin (LIPITOR) 80 mg tablet Take 80 mg by mouth. 12/22/2018 omega-3 acid ethyl esters (LOVAZA) 1 gram Capsule Take by mouth. 12/22/2018 aspirin 81 mg capsule Take 81 mg by mouth daily. SENNA (SENOKOT PO) Take 2 Tabs by mouth 2 times daily. MULTIVITAMINS (MULTIVITAMIN PO) Take 1 Tab by mouth daily. documented as of this encounter Progress Notes * Mague Barnett V., RT - 02/15/2025 9:00 AM [facility]- CONTRAST, MEDICATION and FLUSH PROTOCOL [facility] Enter the protocol in the patient's electronic health record using Aggredynerase: .imagingcontrastprotocol Communication Orders: Initiate a peripheral IV, if not already in place, and discontinue IV prior to discharge Enter order if needed: Insert Peripheral IV Medication Orders: Lidocaine 4% (L.M.X.4)- applied topically ONE TIME prior to IV catheter insertion PRN (apply 15 minutes prior to procedure) Sodium chloride 0.9% (normal saline) flush- 10 mLs PRN for saline lock or medication administration Oxygen- For respiratory distress, initiate O2 to maintain saturation greater than 90% CAT SCAN CT IV CONTRAST PROTOCOLS FOR ADULTS Iopamidol Injection 61% (ISOVUE-300)- Double bolus with MD approval Routine exams dosed by weight: <150lbs- 75mL 151lbs to 220lbs- 100mL >220lbs- 125mL CT Angiography: 100mL Runoff and Triphasic Liver Protocols: 150mL Iopamidol Injection 76% (ISOVUE-370) Cardiac- 110mL TAVR- 160mL CT IV CONTRAST PROTOCOLS FOR PEDIATRICS Iopamidol Injection 61% (ISOVUE-300) - Routine exams: 1mL per pound Infant and Pediatric- Head / Face: 1mL per pound up to 50 lbs Pediatric- Routine exams: 1mL per pound up to 75 lbs 75-150 lbs: 75mL 150-220 lbs: 100mL >220 lbs: 125mL CT ORAL CONTRAST PROTOCOLS FOR ADULTS Iohexol 300mg/mL (OMNIPAQUE) for CT scan unless patient has a documented allergy to contrast * 15ml added to 16 oz of clear liquid of patient's choice. Preferred route is oral. May use nasoenteric tube if needed. Administer 16 oz the diluted Omnipaque 300, orally 1st dose 30-60 minutes prior to scan and 2nd dose just before scan. * Barium Sulfate 2% w/v (READI-CAT2) for CT scan when patient has documented contrast allergy Administer 2 doses of 450mL of barium sulfate. First dose 30-60 min prior to exam and 2nd dose justbefore exam. Preferred route is oral. May use nasoenteric tube if needed. Barium Sulfate 0.1% w/v, 0.1% w/w (VOLUMEN) for Enterography and GI Bleed protocols Administer VoLumen- 3 doses of 450 mL. 1st dose must be completed within 20 minutes. 2nd dose must be completed in the next 30 minutes. 3rd dose is given at scan time. Preferred route is oral. May use nasoenteric tube if needed. CT ORAL CONTRAST PROTOCOLS FOR PEDIATRICS Preferred route is oral, may use nasoenteric tube if needed. to 3 months- Barium Sulfate 2%w/v (READI-CAT2) thinned with water to a consistency for typical bottle feeding 3 Months to 3 years- Iohexol 300mg/mL (OMNIPAQUE) 5mL diluted with 16oz clear fluid. 1 dose: 30min prior to exam 4 years to 10 years- Iohexol 300mg/mL (OMNIPAQUE) 8mL diluted with 16oz clear fluid. 1 dose: 30min prior to exam 10 years and up- Iohexol 300mg/mL (OMNIPAQUE) 15mL diluted with 16oz clear fluid. 2 doses: first dose 30min prior to exam and 2nd dose just before scan if tolerated CT CYSTOGRAM Iopamidol 61% Injection ([id number]): 25mL Dilute into 500mL bag of sterile NS administer up to 300mL retrograde via urinary catheter DIAGNOSTIC RADIOLOGY Enter the protocol in the patient's electronic health record using smartphrase: ADULTS PROCEDURE DOSAGE ARTHROGRAMS Plain ISOVUE 300 12mL MRI-(Ankle,Elbow,Hip,Wrist,Knee,Shoulder) ISOVUE 300 5mL / Prohance .2ml CT-(Ankle,Elbow,Hip,Wrist,Knee,Shoulder) ISOVUE 300 20mL BARIUM ENEMAS BARIUM ENEMA AIR CONTRAST LIQUID POLIBAR 1900ml BARIUM ENEMA/ GASTROGRAFIN B.E. LIQUID POLIBAR 800mL + 3200mL of water or GASTROGRAFIN 960mL + 3040mL of water. CYSTOGRAM CYSTOGRAFIN 1500mL ESOPHAGUS BARIUM SWALLOW E-Z-HD Barium Sulfate for Suspension 340g. and/or E-Z-PAQUE Barium Sulfate Oral Suspension 355mL OMNIPAQUE 350 50ml or GASTROGRAFIN 120mL Barium tablet 700mg (if indicated) MODIFIED BARIUM SWALLOW Barium tablet 700mg, Varibar paste 90g/Varibar thin 74g/ Varibar honey 125mL/ Varibar [place] 120mL HYSTEROSALPINGOGRAM ISOVUE 300 30ml IVP'S ISOVUE 300 100ml MYELOGRAMS: CERVICAL ISOVUE-M 300 10mL THORACIC ISOVUE-M 300 10mL LUMBAR ISOVUE-M 200 12mL SMALL BOWEL SERIES E-Z-PAQUE Barium Sulfate for Oral Suspension 710mL or GASTROGRAFIN 240mL LOOPOGRAM ISOVUE 300 60mL NEPHROSTOGRAM ISOVUE 300 60mL RETROGRADE URETHROGRAM Cystografin 300mL UPPER GI Upper GI E-Z-HD Barium Sulfate for Suspension: 340g. and/or E-Z-PAQUE Barium Sulfate for Oral Suspension: 355mL Upper GI Air Contrast Same as above EZ Gas crystals (if indicated) URETHROCYSTOGRAM VOIDING Cystografin 1500mL PORT CONTRAST INJECTION WITH Isovue 300 20mL FLUORO PEDIATRICS PROCEDURE CONTRAST DOSAGE Upper GI Under Age 5 Liquid E-Z-Paque (Thin Barium) 240mL Omnipaque 180 (hypaque) or 350 50mL Upper GI Above Age 5 EZ HD (Thick Barium) 340g Liquid E-Z Paque (Thin Barium) 240mL EZ Gas Packet 4g Omnipaque 350 (hypaque) 50mL Small Bowel Series Under Age 5 Liquid E-Z Paque (Thin Barium) 240mL Omnipaque 180 (hypaque) 50mL Small Bowel Series Above Age 5 Liquid E-Z Paque (Thin Barium) 480mL Omnipaque 350 50mL Barium Swallow Under Age 5 Liquid E-Z Paque (Thin Barium) 240mL Omnipaque 180 (hypaque) 50mL Barium Swallow Above Age 5 EZ HD (Thick Barium) 340g Liquid E-Z Paque (Thin Barium) 240mL Omnipaque 350 50mL Modified Barium Swallow >1 Varibar Roug73s: 1 to 2 Varibar Thin74 Paste 90g (Video Swallow with Speech) <2 Varibar [id number], [id number], Honey 125mL, Paste 90g IVP Isovue 300 100mL/1mL per lb. Urethrocystogram Voiding Cystografin 500mL Barium Enema Liquid Polibar 400mL+1600 water 2000mL Barium Enema with Hypaque Gastrografin 1 bottle mixed 5 bottle water 720mL Over 5 Gastrografin 480mL+1520 water 2000mL Barium Enema Air Contrast Liquid Polibar 1900mL INTERVENTIONAL RADIOLOGY PROCEDURE DOSAGE IR ARTERIOGRAM VISIPAQUE 320 OR OMNIPAQUE 300 MAX DOSAGE 400mL IR BILIARY ISOVUE 200 MAX DOSAGE 300 mL IR FISTULOGRAM ISOVUE 200 OR VISIPAQUE 320 MAX DOSAGE 400mL IR IVC FILTER ISOVUE 200 OR VISIPAQUE MAX DOSAGE 400 mL IR TUBE PLACEMENT ISOVUE 200 MAX DOSAGE 300 mL IR VENOUS ABDOMINAL VISIPAQUE 320 OR ISOVUE 200 MAX DOSAGE 400 mL IR VENOUS ACCESS ISOVUE 200 MAX DOSAGE 300 mL IR VENOUS UPPER AND LOWER EXTREMITY VISIPAQUE 320 OR ISOVUE 200 MAX DOSAGE 400 mL IR SPINAL INTERVENTION ISOVUE 200 MAX DOSAGE 100mL (FOR BALLOON ONLY) MRI MRI IV CONTRAST PROTOCOLS FOR ADULTS Gadobenate Dimeglumine (MULTIHANCE) (0.1mmol/0.2mL)- Administer 0.1mmol/kg = 0.2mL/kg up to 30mL MAX, intravenously, one time only for routine MRI Gadoxetate (EOVIST) (2.5 mmol/10mL)- Administer 0.025mmol/kg = 0.1mL/kg up to 15mL MAX, intravenously, one time only when requested by radiologist for Liver protocol Gadoteridol (PROHANCE) (0.1mmol/0.2mL)- Administer 0.1mmol/kg = 0.2mL/kg up to 30mL MAX, intravenously, one time only when approved by radiologist for routine MRI MRI IV CONTRAST PROTOCOLS FOR PEDIATRICS Radiologist to determine the need for contrast Term neonates and older: Gadobenate Dimeglumine (MULTIHANCE) (0.1mmol/0.2mL) -Administer 0.1mmol/kg = 0.2mL/kg up 20mL MAX, intravenously, one time only MRI ORAL CONTRAST PROTOCOLS Barium Sulfate 0.1% w/v, 0.1% w/w (VOLUMEN) for Enterography Administer VoLumen- 3 doses of 450 mL. 1st dose must be completed within 20 minutes. 2nd dose must be completed in the next 30 minutes. 3rd dose is given at scan time. Preferred route is oral. May use nasoenteric tube if needed. Use half dose if patient is <100lb NUCLEAR MEDICINE Procedure: Abscess Localization Medications for Procedure: In-111 Leukocytes *Syringes prepped with 2000 units of Heparin added to 10ml of 6% Hetastarch- Approximately 45ml's patient's blood added to the above for labeling Adult Dose: 300-550uCi Pediatric Dose Calculation: .0075mCi/kg Pediatric Minimum: 50uCi Pediatric Maximum: 500uCi Reference: #3 Procedure: Abscess Localization Medications for Procedure: Tc-99m HMPAO Leukocytes *Syringes prepped with 2000 units of Heparin added to 10ml of 6% Hetastarch- Approximately 45ml's patient's blood added to the above for labeling Adult Dose: 15-30mCi Pediatric Dose Calculation: .15mCi/kg Pediatric Minimum: 500uCi Pediatric Maximum: 10.5mCi Reference: #3 Procedure: Abscess Localization Medications for Procedure: Ga-67 Citrate Adult Dose: Ga-67 Citrate Pediatric Dose Calculation: .05mCi/kg Pediatric Minimum: .05mCi/kg Pediatric Maximum: .05mCi/kg Reference: .05mCi/kg Procedure: Arthrogram Medications for Procedure: Tc-99m Sulfur Colloid Adult Dose: 1.0mCi Procedure: Blood Pool (Muga/Hepatic Hemangioma/GI Bleed) Medications for Procedure: Tc-99m Ultratag *Syringe prepped with Heparin Lock Flush(concentration of 100 units/ml) volume of ~.1ml used so dose is ~10 units of Heparin for each procedure Adult Dose: 30mCi Pediatric Dose Calculation: .25mCi/kg Pediatric Minimum: 2.5mCi Pediatric Maximum: 17.5mCi Reference: #1 Comments: Used .25mCi/kg for all exams in this category per Nuclear Medicine physicians Procedure: Bone Scan Medications for Procedure: Tc-99m HDP Adult Dose: 20mCi Pediatric Dose Calculation: .25mCi/kg Pediatric Minimum: 1.0mCi Pediatric Maximum: 17.5mCi Reference: #2 Procedure: Bone Scan Medications for Procedure: Tc-99m MDP Adult Dose: 20mCi Pediatric Dose Calculation: .25mCi/kg Pediatric Minimum: 1.0mCi Pediatric Maximum: 17.5mCi Reference: #2 Procedure: Bone Marrow Imaging Medications for Procedure: Tc-99m Sulfur Colloid Adult Dose: 10mCi Pediatric Dose Calculation: .14mCi/kg Pediatric Minimum: 1.0mCi Pediatric Maximum: 10.0mCi Reference: #1 Procedure: Bowel Imaging (Meckel's) Medications for Procedure: Tc-99m Pertechnetate Adult Dose: 10mCi Pediatric Dose Calculation: .05mCi/kg Pediatric Minimum: 250uCi Pediatric Maximum: 3.5mCi Reference: #2 Procedure: Brain (Cerebral flow) Medications for Procedure: Tc-99m Pertechnetate Adult Dose: 20mCi Pediatric Dose Calculation: .28mCi/kg Pediatric Minimum: 4mCi Pediatric Maximum: 20.0mCi Reference: #1 Procedure: Brain (SPECT) Medications for Procedure: Tc-99m HMPAO(Ceretec) Adult Dose: 30mCi Pediatric Dose Calculation: .35mCi/kg Pediatric Minimum: 3mCi Pediatric Maximum: 25.0mCi Reference: #1 Procedure: Brain (DaTscan) Medications for Procedure: Tc-99m Ioflupane (DaTscan) *120 mg Potassium Iodide in 8 Oz. given PO one hour prior to dosing for procedure Adult Dose: 5mCi Procedure: Cisternogram Medications for Procedure: In-111 DTPA Adult Dose: 2mCi Pediatric Dose Calculation: .007mCi/kg Pediatric Minimum: 100uCi Pediatric Maximum: 500uCi Reference: #1 Procedure: Cystogram Medications for Procedure: Tc-99m Sulfur Colloid or MAA Adult Dose: 1.0mCi Procedure: Gastric Empty (Solid) Medications for Procedure: Tc-99m Sulfur Colloid (eggs/oatmeal/formula) Adult Dose: 1.0mCi Pediatric Dose Calculation: NMIS weight based calculation Pediatric Minimum: 250uCi Pediatric Maximum: 1.0mCi Reference: #5 Procedure: Gastro-esophageal Reflux Medications for Procedure: Tc-99m Sulfur Colloid Adult Dose: 1.0mCi Pediatric Dose Calculation: NMIS weight based calculation Pediatric Minimum: 250uCi Pediatric Maximum: 1.0mCi Reference: #5 Procedure: Hepatobiliary With or without EF Medications for Procedure: Tc-99m Mebrofenin *If using CCK (Sincalide) for EF- dose is .02mcg/kg Sincalide prepared using 5 ml Sterile water added to 5 mcg vial of Sincalide Adult Dose: 5.0mCi Pediatric Dose Calculation: .05mCi/kg Pediatric Minimum: 500uCi Pediatric Maximum: 3.5mCi Reference: #2 Procedure: Hepatobiliary With or without EF Medications for Procedure: Tc-99m Mebrofenin *Bilirubin >1.5mg Adult Dose: 8.0mCi Pediatric Dose Calculation: N/A Pediatric Minimum: 1.0mCi * Pediatric Maximum: 1.0mCi * Reference: #2 Procedure: Hepatic Artery Angiography (Sphere Mapping) Medications for Procedure: Tc-99m MAA Adult Dose: 4.0mCi Pediatric Dose Calculation: N/A Procedure: LeVeen Shunt Patency Medications for Procedure: Tc-99m Sulfur Colloid or MAA Adult Dose: 3.0mCi Procedure: Liver/Spleen Imaging Medications for Procedure: Tc-99m Sulfur Colloid Adult Dose: 5.0mCi Pediatric Dose Calculation: .05mCi/kg Pediatric Minimum: 200uCi Pediatric Maximum: 3.5mCi Reference: #1 Procedure: Lymphoscintigraphy (Breast) Medications for Procedure: Tc-99m Sulfur Colloid (filtered) Adult Dose: 250-550uCi Pediatric Dose Calculation: N/A Procedure: Lymphoscintigraphy (Breast) Medications for Procedure: Tc-99m Tilmanocept (Lymphoseek) Adult Dose: 250-550uCi Pediatric Dose Calculation: N/A Procedure: Lymphoscintigraphy (Melanoma) Medications for Procedure: Tc-99m Sulfur Colloid (filtered) Adult Dose: 500uCi Pediatric Dose Calculation: N/A Procedure: Lymphoscintigraphy (Melanoma) Medications for Procedure: Tc-99m Tilmanocept (Lymphoseek) Adult Dose: 500uCi Pediatric Dose Calculation: N/A Procedure: Lymphoscintigraphy (Melanoma/Breast - 24 hr Injection) Medications for Procedure: Tc-99m Sulfur Colloid (filtered) Adult Dose: 1.8mCi Pediatric Dose Calculation: N/A Procedure: Lymphoscintigraphy (Melanoma/Breast - 24 hr Injection) Medications for Procedure: Tc-99m Tilmanocept (Lymphoseek) Adult Dose: 1.8mCi Pediatric Dose Calculation: N/A Procedure: Lymphoscintigraphy (Lymphedema) Medications for Procedure: Tc-99m Tilmanocept (Lymphoseek) *Apply Topical Lidocaine 30 minutes prior to injections using 4% Anesthetic cream to both feet between webbing of 1st and 2nd toes. Tube is 5 grams of 4% lidocaine Adult Dose: 1.0mCi Pediatric Dose Calculation: N/A Comments: Split dose in (2) 1ml syringes ~500uCi/.1ml each Procedure: Metabolic Tumor Imaging Medications for Procedure: FDG-18 Adult Dose: 10-14mCi Pediatric Dose Calculation: .12mCi/kg Pediatric Minimum: 1.0mCi Pediatric Maximum: 8.4mCi Reference: #2 Procedure: Metabolic Tumor Imaging Medications for Procedure: F-18 Na Flouride Adult Dose: 10-15mCi Pediatric Dose Calculation: .06mCi/kg Pediatric Minimum: .5mCi Pediatric Maximum: 4.2mCi Reference: #2 Procedure: Metabolic Tumor Imaging Medications for Procedure: F-18 fluciclovine(Axumin) Adult Dose: 10.0mCi Pediatric Dose Calculation: N/A Procedure: Metabolic Brain Imaging Medications for Procedure: FDG-18 Adult Dose: 6mCi Pediatric Dose Calculation: .10mCi/kg Pediatric Minimum: 1.0mCi Pediatric Maximum: 5.0mCi Reference: #2 Procedure: Myocardial Perfusion Imaging (Same Day Protocol) Medications for Procedure: Tc-99m Tetrofosmin or Sestamibi *Pharmacologic Stress testing using 0.4mg Lexiscan (regadenoson) for all Myocardial Perfusion protocols Adult Dose: 10mCi (Rest) 30mCi(Stress) *8.0mCi(Rest) *24.0mCi(Stress) Pediatric Dose Calculation: .07mCi/kg, .28mCi/kg Pediatric Minimum: ---, --- Pediatric Maximum: 6.0mCi, 24.0mCi Reference: #1 Comments: *Only used during periods of Tc 99m shortages Procedure: Myocardial Perfusion Imaging (2 day protocol) Day 1(Rest) Day 2(Stress) Medications for Procedure: Tc-99m Tetrofosmin or Sestamibi Adult Dose: 20mCi(Rest), 30mCi(Stress) Pediatric Dose Calculation: .07mCi/kg, .28mCi/kg Pediatric Minimum: ---, --- Pediatric Maximum: 6.0mCi, 24.0mCi Reference: #1 Procedure: Myocardial Perfusion Imaging (Same Day Weight Based Dosing) Medications for Procedure: Tc-99m Tetrofosmin or Sestamibi Adult Dose: Up to 220lbs 10mCi (Rest) 30mCi (Stress) 220-285lbs 13mCi (Rest) 39mCi (Stress) 286-351lbs 16mCi (Rest) 48mCi (Stress) 352lbs and > 19mCi (Rest) 57mCi (Stress) Pediatric Dose Calculation: N/A Procedure: Myocardial Perfusion Imaging (Same Day Weight Based Dosing) Medications for Procedure: Tl-201 Thallous Chloride Adult Dose: 3.25mCi Pediatric Dose Calculation: .035mCi/kg Pediatric Maximum: 2.5mCi Reference: #1 Procedure: Myocardial Infarction Imaging Medications for Procedure: Tc-99m Pyrophosphate Adult Dose: 25.0mCi Pediatric Dose Calculation: N/A Procedure: Parathyroid Imaging Medications for Procedure: Tc-99m Sestamibi Adult Dose: 20.0mCi Pediatric Dose Calculation: .28mCi/kg Pediatric Minimum: 2.0mCi Pediatric Maximum: 20.0mCi Reference: #1 Procedure: Pulmonary Perfusion Imaging Medications for Procedure: Tc-99m MAA Adult Dose: 6.0mCi Pediatric Dose Calculation: .03mCi/kg Pediatric Minimum: 400uCi Pediatric Maximum: 2.1mCi Reference: #2 Procedure: Pulmonary Perfusion Imaging (Pumlonary HTN or Right to Left Shunts) Medications for Procedure: Tc-99m MAA Adult Dose: 1-2.5mCi in max of .2ml volume Pediatric Dose Calculation: N/A Procedure: Pulmonary Perfusion Imaging ( Patients - All Trimesters) Medications for Procedure: Tc-99m MAA Adult Dose: 3.0mCi Pediatric Dose Calculation: N/A Procedure: Pulmonary Ventilation Imaging Medications for Procedure: Xe-133 Gas Adult Dose: 10-30mCi Pediatric Dose Calculation: Adult dose Procedure: Pulmonary Ventilation Imaging Medications for Procedure: Tc-99m DTPA Adult Dose: 35mCi Pediatric Dose Calculation: Adult dose Procedure: Renal Imaging (Cortical) Medications for Procedure: Tc-99m DMSA Adult Dose: 5mCi Pediatric Dose Calculation: .05mCi/kg Pediatric Minimum: 500uCi Pediatric Maximum: 3.5mCi Reference: #2 Procedure: Renal Imaging (Function/ Lasix) Medications for Procedure: Tc-99m MAG 3 *(Lasix IV) 0.5 mg/kg in the adult patient using a minimum of 40 mg and a maximum of 80 mg. The dose for infants (0-1yr. old) is 1mg/kg. The dose for a child (1-16yr. old) is 0.5mg/kg, without a minimum Adult Dose: 10mCi Pediatric Dose Calculation: .15mCi/kg Pediatric Minimum: 500uCi Pediatric Maximum: 10.0mCi Reference: #2 Procedure: Thyroid Uptake/Imaging Medications for Procedure: I-123 Sodium Iodide capsules or solution Adult Dose: 200-500uCi Pediatric Dose Calculation: 5uCi/kg Pediatric Minimum: 50uCi Pediatric Maximum: 250uCi Reference: #4 Procedure: Thyroid Uptake/Imaging Medications for Procedure: I-131 Sodium Iodide Solution (uptake only) Adult Dose: 5-10uCi Pediatric Dose Calculation: N/A Procedure: Thyroid Uptake/Imaging Medications for Procedure: Tc-99m Pertechnetate (scan only) Adult Dose: 10mCi Pediatric Dose Calculation: .14mCi/kg Pediatric Minimum: 1.0mCi Pediatric Maximum: 10.0mCi Reference: #1 Procedure: Tumor Localization Imaging Medications for Procedure: Ga-67 Citrate Adult Dose: 10mCi Pediatric Dose Calculation: .14mCi/kg Pediatric Maximum: 10.0mCi Reference: #1 Procedure: Tumor Localization Imaging Medications for Procedure: In-111 Capromab Pendetide(Prostascint) Adult Dose: 6.0mCi Pediatric Dose Calculation: N/A Procedure: Tumor Localization Imaging (MIBG Scans) Medications for Procedure: I-123 Metaiodobenzylguanidine (MIBG) *120 mg Potassium Iodide in 8 Oz. given PO one hour prior to dosing for procedure Adult Dose: 10mCi Pediatric Dose Calculation: .14mCi/kg Pediatric Minimum: 1.0mCi Pediatric Maximum: 10.0mCi Reference: #2 Procedure: Tumor Localization Imaging (MIBG Scans) Medications for Procedure: I-131Metaiodobenzylguanidine (MIBG) *120 mg Potassium Iodide in 8 Oz. given PO one hour prior to dosing for procedure Adult Dose: 1.0mCi Pediatric Dose Calculation: N/A Procedure: Tumor Localization Imaging Medications for Procedure: In-111 Pentetreotide (Octreoscan) Adult Dose: 6.0mCi Pediatric Dose Calculation: .08mCi/kg Pediatric Maximum: 6.0mCi Reference: #1 Procedure: Tumor Localization Imaging Medications for Procedure: I-131 Sodium Iodide Adult Dose: 5.0mCi Pediatric Dose Calculation: N/A Procedure: Tumor Localization Imaging Medications for Procedure: I-123 Sodium Iodide Adult Dose: 1.5-2.0mCi Pediatric Dose Calculation: .028mCi/kg Reference: No reference information Procedure: Venogram (Upper/Lower Extremities) Medications for Procedure: Tc-99m Ultratag *Syringe prepped with Heparin Lock Flush(concentration of 100 units/ml) volume of ~.1ml used so dose is ~10 units of Heparin for each procedure Adult Dose: 30mCi Pediatric Dose Calculation: N/A Procedure: Ventricular Shunt Imaging Medications for Procedure: Tc-99m DTPA Adult Dose: 1.0mCi Pediatric Dose Calculation: N/A References for Pediatric Administration: Nuclear Medicine Procedure Manual, Division of Nuclear Medicine, [facility] [place] [facility]; [email or web address] [place] Consensus Guidelines for Administered Radiopharmaceutical Activities in Children andAdolescents; [email or web address] guidelines Final 2010.pdf ACR-SNM-SPR Practice guideline for the performance of Scintigraphy for inflammation and infection; www/acr.org.guidelines. Revised 2009 9.1 Tarsha JANNETH, Columba WC, Franchesca RD. Nuclear Medicine Diagnosis and Therapy. [employer], [employer].,1995. Chapter 37, page 930, Table 1. Pediatric weight/dose database file NMIS system: Pediatric Dose = Adult dose (mCi) x Dose Factor Range of Weight (lbs) Dose Factor (%) 0.00-5.00 10 5.01-10.00 10 10.01-15.00 16 15.01-20.00 21 20.01-25.00 25 25.01-30.00 30 30.01-40.00 34 40.01-50.00 41 50.01-60.00 48 60.01-70.00 54 70.01-80.00 61 80.01-90.00 67 90.01-100.00 72 100.01-110.00 78 110.01-120.00 83 120.01-130.00 88 130.01-140.00 94 140.01-142.00 99 142.01-150.00 100 Attention: Any exam, radiopharmaceutical or dosage not included on this list requires physician approval and a written prescription Approved by: Medical Executive Committee and Imaging Services ING LINE WORKER documented in this encounter Miscellaneous Notes * Therapy Evaluation - Martha Baca SLP - 02/15/2025 9:00 AM CST Images from the original note were not included. [facility] [address] [place] [address] Ph. [phone]; Speech-Language Pathology Modified Barium Swallow Evaluation Only Patient: Jose Armendariz Date of : 1940 Visit Number 1 of 1 Number of Authorized Visits: Date Completed Evaluation 02/15/2025 YES Visits Authorized Through: Date: 02/15/2025 Referring Physician: Khloe Galvin NP Medical Diagnosis: R13.10 (ICD-10-CM) - 787.20 (ICD-9-CM) - Odynophagia Z87.19 (ICD-10-CM) - V12.79 (ICD-9-CM) - History of Marcelo esophagus Treatment Diagnosis: Dysphagia Onset Date: months ago per pt report Insurance: Payor: MEDICARE / Plan: MEDICARE PART A AND B / Product Type: Medicare / Precautions/ Contraindications: HIGH RISK FOR FALLS Medications: Current Outpatient Medications: metoprolol succinate (TOPROL XL) 25 mg Extended Release 24 hour tablet, Take 0.5 Tablets (12.5 mg) by mouth daily. Skip dose if heart rate less than 60bpm, Disp: 45 Tablet, Rfl: 3 empagliflozin (Jardiance) 10 mg tablet, Take 1 Tablet (10 mg) by mouth daily in the morning., Disp:100 Tablet, Rfl: 3 furosemide (LASIX) 20 mg tablet, Take 1 Tablet (20 mg) by mouth 1 time daily as needed for Other (See Comment) (Weight gain more than 3 pounds in 24 hours or over 5 pounds in any period of time associated with shortness of breath, swelling in legs)., Disp: 30 Tablet, Rfl: 2 magnesium oxide (MAG-OX) 400 mg (241.3 mg magnesium) tablet, , Disp: , Rfl: memantine (NAMENDA) 5 mg Tablet, Take 5 mg by mouth., Disp: , Rfl: potassium CHLORIDE (KLOR-CON M20) 20 mEq Extended Release tablet, Take 20 mEq by mouth., Disp: , Rfl: busPIRone (BUSPAR) 5 mg tablet, Take 5 mg by mouth 3 times daily., Disp: , Rfl: Fiber-Lax 625 mg tablet, , Disp: , Rfl: cholecalciferol, vitamin D3, 1,000 unit, , Disp: , Rfl: DULoxetine (CYMBALTA) 20 mg Capsule, Delayed Release(E.C.), Take 40 mg by mouth., Disp: , Rfl: omeprazole (PriLOSEC) 20 mg Capsule, Delayed Release(E.C.), Take 20 mg by mouth., Disp: , Rfl: acetaminophen (TYLENOL) 500 mg tablet, Take 500 mg by mouth every 6 hours as needed., Disp: , Rfl: fluoride, sodium, (ETHEDENT) 1.1 % Cream, by dental route., Disp: , Rfl: tamsulosin (FLOMAX) 0.4 mg capsule, Take 0.4 mg by mouth., Disp: , Rfl: insulin aspart U-100 (NovoLOG) 100 unit/mL vial, Inject by subcutaneous injection 3 times daily with meals., Disp: , Rfl: insulin glargine (LANTUS) 100 unit/mL vial, Inject 25 Units by subcutaneous injection daily at bedtime., Disp: , Rfl: finasteride (PROSCAR) 5 mg tablet, Take 5 mg by mouth., Disp: , Rfl: polyethylene glycol 3350 (MIRALAX) 17 gram/dose Powder, Take 17 Grams by mouth., Disp: , Rfl: atorvastatin (LIPITOR) 80 mg tablet, Take 80 mg by mouth., Disp: , Rfl: omega-3 acid ethyl esters (LOVAZA) 1 gram Capsule, Take by mouth., Disp: , Rfl: aspirin 81 mg capsule, Take 81 mg by mouth daily., Disp: , Rfl: SENNA (SENOKOT PO), Take 2 Tabs by mouth 2 times daily., Disp: , Rfl: MULTIVITAMINS (MULTIVITAMIN PO), Take 1 Tab by mouth daily., Disp: , Rfl: MEDICAL HISTORY Jose has a past medical history of Atrial fibrillation (CMS/HCC), Diabetes, Diabetes mellitus (CMS/HCC), GERD (gastroesophageal reflux disease), Hearing reduced, HTN (hypertension), and Unspecifiedessential hypertension. He has no past medical history of Otitis media, Sleep apnea, or Undiagnosed cardiac murmurs. 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 Pt is on oxygen. Pt's history is significant for esophageal dysphagia, globus sensation. The patient's complaints include:. Onset of these issues wasa long time ago per pt report. Pt denies recent pneumonia or other respiratory compromise. Pt denies unintended weight loss secondary to swallowing issues. To compensate for swallowing difficulties, pt will drink water or regurgiate. Pt endorses pill dysphagia. Pt endorses known reflux. EGD completed 09/2024. Patient goal: there's a catch in my throat. Patient's self-rating of current swallowing function: 6/10 with 10 being the best function possible. Since previous physician exam or provider treatment: Medication Changes: None since last visit. Medical Dx changes: None since last visit. Allergic drug response: Allergies Allergen Reactions Lisinopril Rash Significant operation and or procedure: Yes - EGD 09/2024 Pain: Numbers Scale (0-10): chronic back pain Intervention for Pain: No intervention as patient reported chronic pain. Response to Intervention: N/A Diagnostic Intervention Provided Speech Language Pathology Videofluoroscopy Swallow Study OBJECTIVE Present during the study: Patient Patient has food/contrast allergies: None per patient or chart review. Patient has no alternative means of nutrition. Diet prior to MBS: Regular and Thin liquid Esophageal Phase Questionnaire Sternal and Pharyngeal globus sensation: Yes Meat dysphagia: Yes Pill dysphagia: Yes Bread dysphagia: Yes Regurgitation: Yes Self induced vomiting after meals: No Heartburn/acid indigestion: Yes. Symptoms/Frequency: reflux dysphagia Excessive belching during/after meals: No Early satiety: Unknown History of Esophageal dilation(s): Dates: September 2024, Hiatal hernia, and Marcelo's esophagus Fluoroscopy Conditions Lateral View: thin liquid, puree-thin, puree-thick, semi-solid, and solid Anterior/Posterior View: puree-thick and solid Position: seated upright C-arm utilized to perform MBS: Yes Patient fed self during assessment. Oral Musculature Structure and Function CN V: facial sensation intact bilaterally and jaw movement intact bilaterally CN VII: facial movement intact bilaterally CN IX/X: palate rises symmetrically CN XII: lingual movement intact bilaterally and tongue protrudes to midline Dentition: missing teeth Oral Mucosa: WFL Secretion Management:WFL Laryngeal Function: WFL Vocal Quality: WFL Oral Phase abnormal moderate Observations: increased oral transit time, premature spillage, decreased tongue base driving strength, mastication slow, but effective, and increased oral residue Oral Phase Comments: Patient is presenting with moderate oral phase deficits characterized by increased oral transit time, premature spillage, decreased tongue base driving strength, mastication slow, but effective, and increased oral residue. Pharyngeal Phase abnormal moderate Observations: vallecular pooling - moderate, pyriform sinus pooling - minimal, and reduced hyolaryngeal excursion Pharyngeal Phase Comments: Patient is presenting with moderate pharyngeal phase deficits characterized by vallecular pooling - moderate, pyriform sinus pooling - minimal, and reduced hyolaryngeal excursion Esophageal Screening Screen of bolus transit through the esophagus was completed and revealed: no blatant retention or retrograde bolus flow Penetration/Transglottic Aspiration THIN LIQUID Penetration occurred: Yes, during trials presented via open cup Aspiration occurred: No Rosenbek score of 2: Contrast entered the airway above the vocal cords with no residue(penetration)and was expectorated from the airway. THIN PUREE Penetration occurred: No Aspiration occurred: No Rosenbek score of 1: No aspiration or penetration was observed at any time on any consistency. THICK PUREE Penetration occurred: No Aspiration occurred: No Rosenbek score of 1: No aspiration or penetration was observed at any time on any consistency. SEMI-SOLID Penetration occurred: No Aspiration occurred: No Rosenbek score of 1: No aspiration or penetration was observed at any time on any consistency. SOLID Penetration occurred: No Aspiration occurred:No Rosenbek score of 1: No aspiration or penetration was observed at any time on any consistency. The Rosenbek Penetration-Aspiration Scale is an eight-point multidimensional scale that annotates depth of bolus invasion, swallower's response, and severity of dysphagia. For full article, please refer to: Susan Nieto, Susan Fink., Tahmina Fishman., Susan Anaya. & Susan Foster. (1996). A Penetration-Aspiration Scale. Dysphagia, 11, 93-98. Retrieved from [employer]. Swallowing Strategies Subsequent dry swallow: successful in clearing pharyngeal residue. ASSESSMENT Did aspiration occur: no Study Summary: Patient is presenting with moderate oropharyngeal dysphagia. No aspiration appreciated. Pt presented with penetration following two trials of thin liquid via open cup. This was expectorated from the airway. Pt's oral phase deficits are characterized by increased oral transit time, premature spillage, decreased tongue base driving strength, mastication slow, but effective, and increased oral residue. Pt's pharyngeal phase deficits are characterized by vallecular pooling - moderate, pyriform sinus pooling - minimal, and reduced hyolaryngeal excursion. No esophageal retention noted. At the conclusion of the assessment, pt was briefed on the results, recommendations, and was given safe swallow strategies. Safe swallow strategies included a subsequent dry swallow to clear pharyngeal residue, and small bites/sips during PO intake. Pt verbalized understanding and agreement. [facility] was briefed on the results and recommendations. All questions were answered to their satisfaction. At this time, outpatient therapy is warranted to address the deficits mentioned above. Patient has requested to attend outpatient therapy in [place]. To do next session: N/A Swallowing Recommendations DIET RECOMMENDATIONS: Dental soft and IDDSI 0 Normal (Thin) Liquids PATIENT SPECIFIC SWALLOWING GUIDELINES: Single, small volume drinks Take 1-2 repeat dry/saliva swallows following every 1-2 bites/sips Alternate bites of food with drinks of liquid Alternate liquids and solids at a rate of 1 drink following every 1-2 bites Medications to be provided one at a time and with liquids GENERAL SWALLOWING GUIDELINES: Patient should be seated close to 90 degrees, preferably in the chair Remain upright for 30-60 minutes after meals Take frequent drinks during meals Small sips/bites Eat slowly Minimize distractions during oral intake (conversations/TV) Monitor for signs and symptoms of aspiration Good oral care 3 times every day with toothbrush PLAN Patient would benefit from the following: dysphagia treatment and patient/family education Total Time: 30 minutes evaluation/education + 30 minutes interpretation time The results of the evaluation and recommendations were discussed with the patient and patient's family. The patient and patient's family were involved in the development of goals. All were in agreement with the plan of care. Thank you for this referral. Please contact [facility] at [phone] if you have any questions regarding information provided above. Martha Baca MA CCC-MANAGER ORDER [facility] Outpatient Neuro Therapy Services Direct Office Line: This documentation was created by [employer] cloth colorer software (known for inherent cloth colorer and grammar errors) using [employer]. Effort has been done to assure accuracy of cloth colorer. Any obvious errors or omissions should be clarified with the author of the document. RELATED ENCOUNTERS Khloe Galvin NP Nurse Practitioner Specialty: Nurse Practitioner Family Progress Notes Signed Encounter Date: 12/01/2024 Expand All Collapse All GI Clinic Note Jose Armendariz [facility] [id number] 12/01/2024 Collaborative physician: Dandre Willingham MD Referring Provider: Sam Fay MD History of Present Illness The patient is an 84-year-old male who presents for a new patient evaluation and management of recent findings of abnormal CT images noting a 2.4 cm pancreatic cystic lesion in the head and uncinate process of the pancreas. Per radiology, an MRCP was recommended. CT imaging additionally noted mild diverticulitis. He had presented to the emergency room at [facility] in [place] on 11/22/2024. Full ERvisit records are not available for review. On review of available outside records, he underwent CTimaging on 11/22/2024 that noted cardiomegaly, moderate to severe three-vessel coronary atherosclerosis, increased size of a 2.4 cm pancreatic head uncinate process cystic lesion with recommendation for MRCP for further characterization. Full CT imaging is not available for review, so it is unknownif any ductal dilatation is present. Additional findings include nonspecific pericolonic fat stranding in the left lower quadrant with associated minimal diverticular disease, which may correlate with mild diverticulitis, and prostamegaly, with a recommendation to correlate with PSA. Otherwise, there is no acute process in the abdomen or pelvis to explain his symptoms. His past medical history includes hypertension, hyperlipidemia, BPH, Marcelo's esophagus, history of colon polyps, CAD, degenerative joint disease, hearing loss, atrial fibrillation, CHF, diabetes, PINA, and dementia. There wereno other medical records besides his medication list included in the referral. He is accompanied byhis [id number]. He is a poor historian, presents in a wheelchair on O2 via nasal cannula. He experienced abdominal tenderness one evening, which escalated to significant pain by morning, causing difficulty in breathing and mobility. The pain was primarily located in the front and lower left abdomen, with some tenderness on the right side. The pain has since subsided. He was prescribed antibiotics but did not take them as his symptoms were improving. He has been experiencing constipation, which he manages with laxatives, Senokot, MiraLAX, and Smooth Move tea. He also takes fiber pills. Daily use of MiraLAX results in diarrhea. He has not had oatmeal for 8 to 10 days due to its flaxseed content. He has not had a colonoscopy in over 10 years. He has a history of Marcelo's esophagus and takes omeprazole. He has been experiencing difficulty swallowing and coughing when drinking water. He also experiences regurgitation of water. He has a loop recorder and is claustrophobic, requiring Valium for MRIs. He has no pacemaker, implanted defibrillator, brain aneurysm or clips, vascular stents within the last 8 weeks, or metal shavings in the eye. He has no history of pancreatitis or stroke but has had mini strokes. He uses oxygenwhen sitting down. He takes Lasix every other day to every 3 days to prevent congestive heart failure. Over the past 9days, he has not taken Lasix and has lost a pound a day. FAMILY HISTORY He does not know if colon cancer runs in his family. FAMILY HISTORY: family history includes Heart Disease in his father. PAST MEDICAL HISTORY: Past Medical History Past Medical History: Diagnosis Date Atrial fibrillation (CMS/HCC) Diabetes Diabetes mellitus (CMS/HCC) GERD (gastroesophageal reflux disease) Hearing reduced HTN (hypertension) Unspecified essential hypertension MEDICATIONS: Medications Ordered Prior to Encounter Current Outpatient Medications on File Prior to Visit Medication Sig Dispense Refill metoprolol succinate (TOPROL XL) 25 mg Extended Release 24 hour tablet Take 0.5 Tablets (12.5 mg) by mouth daily. Skip dose if heart rate less than 60bpm 45 Tablet 3 empagliflozin (Jardiance) 10 mg tablet Take 1 Tablet (10 mg) by mouth daily in the morning. 100 Tablet 3 furosemide (LASIX) 20 mg tablet Take 1 Tablet (20 mg) by mouth 1 time daily as needed for Other (See Comment) (Weight gain more than 3 pounds in 24 hours or over 5 pounds in any period of time associated with shortness of breath, swelling in legs). 30 Tablet 2 magnesium oxide (MAG-OX) 400 mg (241.3 mg magnesium) tablet memantine (NAMENDA) 5 mg Tablet Take 5 mg by mouth. potassium CHLORIDE (KLOR-CON M20) 20 mEq Extended Release tablet Take 20 mEq by mouth. busPIRone (BUSPAR) 5 mg tablet Take 5 mg by mouth 3 times daily. Fiber-Lax 625 mg tablet cholecalciferol, vitamin D3, 1,000 unit DULoxetine (CYMBALTA) 20 mg Capsule, Delayed Release(E.C.) Take 40 mg by mouth. omeprazole (PriLOSEC) 20 mg Capsule, Delayed Release(E.C.) Take 20 mg by mouth. acetaminophen (TYLENOL) 500 mg tablet Take 500 mg by mouth every 6 hours as needed. fluoride, sodium, (ETHEDENT) 1.1 % Cream by dental route. tamsulosin (FLOMAX) 0.4 mg capsule Take 0.4 mg by mouth. insulin aspart U-100 (NovoLOG) 100 unit/mL vial Inject by subcutaneous injection 3 times daily withmeals. insulin glargine (LANTUS) 100 unit/mL vial Inject 25 Units by subcutaneous injection daily at bedtime. finasteride (PROSCAR) 5 mg tablet Take 5 mg by mouth. polyethylene glycol 3350 (MIRALAX) 17 gram/dose Powder Take 17 Grams by mouth. atorvastatin (LIPITOR) 80 mg tablet Take 80 mg by mouth. omega-3 acid ethyl esters (LOVAZA) 1 gram Capsule Take by mouth. aspirin 81 mg capsule Take 81 mg by mouth daily. SENNA (SENOKOT PO) Take 2 Tabs by mouth 2 times daily. MULTIVITAMINS (MULTIVITAMIN PO) Take 1 Tab by mouth daily. [DISCONTINUED] glyBURIDE (DIABETA) 5 mg Oral tablet Take 5 mg by mouth daily with breakfast. No current facility-administered medications on file prior to visit. ALLERGIES: Allergies Allergies Allergen Reactions Lisinopril Rash REVIEW OF SYSTEMS: Complete ROS was negative aside from what was noted above. PHYSICAL EXAM: VITALS: BP 129/76 Pulse 91 Ht 5' 11 (1.803 m) Wt 90.7 kg (200 lb) BMI 27.89 kg/m?? GEN: Jose Armendariz is a 84 y.o. male in no acute distress. HEENT: Mucous membranes pink and moist. Sclera anicteric. NECK: Trachea midline without obvious lymphadenopathy or thyromegaly. LUNGS: Regular respiratory effort, no intercostal retractions. HEART: Regular rate. ABD: Non-distended, Soft. RECTAL: Not done at this time. EXT: Without cyanosis, deformity or pitting edema. SKIN: [place], warm, dry. LABS: Lab Results Component Value Date/Time WBC 9.9 09/12/2024 04:13 AM HGB 12.6 (L) 09/12/2024 04:13 AM HCT 37.6 (L) 09/12/2024 04:13 AM PLT 151 09/12/2024 04:13 AM MCV 90.0 09/12/2024 04:13 AM Lab Results Component Value Date/Time NA 135 (L) 09/12/2024 04:13 AM K 4.5 09/12/2024 04:13 AM CL 102 09/12/2024 04:13 AM CO2 24 09/12/2024 04:13 AM CA 9.0 09/12/2024 04:13 AM BUN 33 (H) 09/12/2024 04:13 AM CREAT 1.66 (H) 09/12/2024 04:13 AM GLUCOSE 162 (H) 09/12/2024 04:13 AM TOTALPROTEIN 6.1 (L) 09/12/2024 04:13 AM ALBUMIN 3.4 (L) 09/12/2024 04:13 AM BILITOTAL 0.7 09/12/2024 04:13 AM ALKPHOS 105 09/12/2024 04:13 AM AST 10 09/12/2024 04:13 AM ALT 13 09/12/2024 04:13 AM ANIONGAP 9 09/12/2024 04:13 AM Wt Readings from Last 3 Encounters: 12/01/24 90.7 kg (200 lb) 09/19/24 94.3 kg (208 lb) 09/12/24 94.5 kg (208 lb 5.4 oz) Lab Results Component Value Date/Time TSH 2.90 09/05/2024 02:21 PM No results found for: CRP , CRPHS DIAGNOSTICS: Results Imaging - CT imaging of the abdomen: 11/22/2024, 2.4 cm pancreatic cystic lesion in the head and mucinate process of the pancreas. Mild diverticulitis. Cardiomegaly and moderate to severe three-vessel coronary atherosclerosis. Nonspecific pericolonic fat stranding in the left lower quadrant with associatedminimal diverticular disease. Assessment & Plan 1. Pancreatic cystic lesion: - The patient has a 2.4 cm pancreatic cystic lesion in the head and mucinate process of the pancreas. - An MRCP will be conducted to better characterize the cyst and any pancreatic duct involvement. Ifno alarming features are found, surveillance imaging may be repeated every 6 to 12 months. If the cyst shows significant growth or alarming features, an EUS with FNA may be considered. 2. Diverticulitis: - The patient experienced mild diverticulitis with nonspecific pericolonic fat stranding in the left lower quadrant. The pain has gradually improved and is currently not present. - Antibiotics were not prescribed as his symptoms improved without them. He is advised to continue a low residue diet and use MiraLAX as needed to keep stools soft. If pain recurs, he should return to the ER due to the risk of perforation. -Given patients co-morbidities would recommend watchful monitoring at this time, consider Colonoscopy. -Sign release for outside endoscopy records. 3. Constipation: - The patient struggles with chronic constipation. He usually has a bowel movement every day but occasionally needs MiraLAX to avoid severe constipation. - He currently takes a laxative pill, Senokot, MiraLAX, and smooth move tea. He is advised to titrate MiraLAX to avoid diarrhea while maintaining soft stools. A daily fiber supplement is also recommended. 4. Dysphagia: - The patient has a history of Marcelo's esophagus and is experiencing dysphagia. He has trouble swallowing and occasionally regurgitates water. - A modified barium swallow study will be conducted to assess swallowing issues. -He is advised to continue omeprazole and follow safe swallowing guidelines provided in the after-visit summary. -Sign release for outside endoscopy records. 5. Health maintenance: - A CBC, CMP, and CA 19-9 will be ordered Follow-up: The patient will follow up in approximately 3 to 4 months. Discussed alarm signs and symptoms that would indicate need for sooner follow up, such as new onsetor worsening dysphagia, evidence of bloody vomit or stool, weight loss, or changes in bowel habits. The patient indicates understanding of these issues and agrees with the plan. Total time taking care of the patient was greater than 45 minutes with greater than 50% of the timespent counseling the patient, coordinating their care, reviewing chart including labwork/procedure workup and other specialty notes Plan of care discussed and developed in collaboration with Dandre Willingham MD Tambra L Sellers, NP This note has been partially dictated using voice recognition software. Every effort has been made to ensure accuracy. Patient provided verbal consent for the use of [employer] to assist in documentation of today's visit. Contains text generated by [employer] ING LINE WORKER documented in this encounter Plan of Treatment Upcoming Encounters Date Type Department Care Team (Late st Contact Info) Description 03/14/2025 11:30 AM PACKING LINE WORKER Office Visit [facility] [place] [id number] [place] [address] Khloe Galvin NP [address] [address] 03/22/2025 11:00 AM PACKING LINE WORKER Appointment [facility] [address] [place] [address] Khloe Galvin NP [address] [address] 06/26/2025 2:45 PM CDT Office Visit [facility] [address] [facility] [address] [place] [address] Favio Polanco MD [address] [facility] [address] [place] [address] documented as of this encounter Procedures Procedure Name Priority Date/Time Associated Diagnosis Comments XR VIDEO SWALLOW W SPEECH Routine 02/15/2025 9:37 AM PACKING LINE WORKER Odynophagia History of Marcelo esophagus documented in this encounter Results * XR VIDEO SWALLOW W SPEECH (02/15/2025 9:37 AM PACKING LINE WORKER) Anatomical Region Laterality Modality Chest Computed Radiogr aphy 02/15/2025 9:41 AM PACKING LINE WORKER Impressions 02/15/2025 9:56 AM PACKING LINE WORKER IMPRESSION: Please see below. Exam: XR VIDEO SWALLOW W SPEECH Date/Time of Exam: 02/15/2025 9:37 AM Reason For Exam: See Diagnosis. This procedure was performed and preliminary findings dictated by Michael Young PA-C. Supervision and final interpretation by Dr. Encarnacion. Fluoroscopy was used for performance of video swallow study. The patient was given multiple consistencies of contrast material. The cervical esophagus is patent without stricture or obstruction. Trace airway penetration. Carotid artery calcifications. Cervical spine degenerative changes. For further details regarding swallowing, please see detailed speech pathology report. Narrative Procedure Note Usama Encarnacion MD - 02/15/2025 IMPRESSION: Please see below. Exam: XR VIDEO SWALLOW W SPEECH Date/Time of Exam: 02/15/2025 9:37 AM Reason For Exam: See Diagnosis. This procedure was performed and preliminary findings dictated by Michael Young PA-C. Supervision and final interpretation by Dr. Encarnacion. Fluoroscopy was used for performance of video swallow study. The patient was given multiple consistencies of contrast material. The cervical esophagus is patent without stricture or obstruction. Trace airway penetration. Carotid artery calcifications. Cervical spine degenerative changes. For further details regarding swallowing, please see detailed speech pathology report. Khloe Galvin NP DIAGNOSTIC IMAGING ORDERABLE S Final Result documented in this encounter Visit Diagnoses Diagnosis Odynophagia Dysphagia, unspecified History of Marcelo esophagus documented in this encounter Administered Medications Inactive Administered Medications - up to 3 most recent administrations Medication Order MAR Action Action Date Dose Rate Site barium sulfate (VARIBAR PUDDING) oral paste 230 mL 230 mL, Oral, PRE-PROCEDURE ONCE, 1 dose, Starting on Thu02/15/25 at 0937, Until Thu02/15/25 at 0941, Routine Given 02/15/2025 9:41 AM PACKING LINE WORKER 230 mL barium sulfate (VARIBAR THIN LIQUID) 40% w/v from 81% w/w oral powder 74 Gram 74 Gram, Oral, PRE-PROCEDURE ONCE, 1 dose, Starting on Thu02/15/25 at 0937, Until Thu02/15/25 at 0941, Routine Given 02/15/2025 9:41 AM PACKING LINE WORKER 74 Grams documented in this encounter Care Teams Medical Record Consultant Relationship Specialty Start Date End Date Sam Fay MD PCP - General Emergency Medicine 12/22/18 documented as of this encounter
--- OUTSIDE RECORDS SUMMARY | 2025-02-15 09:00 | XMS_ITS | Encounter Summary ---
Author Organization [facility] Address [address] [place] [address] Care Team Providers Care Sand Conditioner Name Role Phone Sam Fay MD Primary Care Provider + [phone] Reason for Referral * Radiology Services (Routine) - Closed Specialty Diagnoses / Procedures Referred By Dg mai Referred To Contact Radiology Diagnoses Odynophagia History of Marcelo esophagus Procedures XR VIDEO SWALLOW W SPEECH Khloe Galvin NP [address] [address] Phone: tel: fax: [facility] [address] [place] [address] Phone: tel: fax: Referral ID Status Reason Start Date Expiration Date Visits Re quested Visits Authorized [id number] Closed 12/01/2024 01/01/2026 1 1 SPLICER Reason for Visit * Radiology Services (Routine) - Closed Specialty Diagnoses / Procedures Referred By Dg mai Referred To Contact Radiology Diagnoses Odynophagia History of Marcelo esophagus Procedures XR VIDEO SWALLOW W SPEECH Khloe Galvin NP [address] [address] Phone: tel: fax: [facility] [place] [address] Phone: tel: fax: Referral ID Status Reason Start Date Expiration Date Visits Re quested Visits Authorized [id number] Closed 12/01/2024 01/01/2026 1 1 Encounter Details Date Type Department Care Team (Latest Contact Info) Description 02/15/2025 9:00 AM BAND SPLICER - 02/15/2025 11:59 PM BAND SPLICER Hospital Encounter [facility] [address] [place] [address] Khloe Galvni, IN SHOP SERVICE TECHNICIAN [address] [place] [address] Discharge Disposition: Home or Self [...] on file Legal Sex Male 8:53 PM BAND SPLICER Gender Identity Not on file Sexual Orientation [...] IMAGING SERVICES- CONTRAST, MEDICATION and FLUSH PROTOCOL [facility] Enter the protocol in the patient's electronic health record using [employer] Energy Resourcesrase: .imagingcontrastprotocol Communication Orders: Initiate a peripheral IV, [...] if tolerated CT CYSTOGRAM Iopamidol 61% Injection ([id number]): 25mL Dilute into 500mL bag of sterile [...] 90g/Varibar thin 74g/ Varibar honey 125mL/ Varibar Difficult Run 120mL HYSTEROSALPINGOGRAM ISOVUE 300 30ml IVP'S ISOVUE [...] 350 50mL Modified Barium Swallow >1 Varibar Azkf25m: 1 to 2 Varibar Thin74 Paste 90g (Video Swallow with Speech) <2 Varibar Mbzi36r, [id number], Honey 125mL, Paste 90g IVP Isovue 300 [...] Medicine Procedure Manual, Division of Nuclear Medicine, [facility] [place] of Radiology; gamma.[email or web address]/[email or web address].html [place] Consensus Guidelines for Administered Radiopharmaceutical Activities in Children andAdolescents; http://interactive.snm.org/docs/Pediatric dose consensus guidelines Final 2010.pdf ACR-SNM-SPR Practice guideline for the performance of Scintigraphy for inflammation and infection; www/acr.org.guidelines. Revised 2009 9.1 Tarsha JANNETH, Columba WC, Franchesca RD. Nuclear Medicine Diagnosis and Therapy. Sailthru, alaTest.,1995. Chapter 37, page 930, Table 1. Pediatric [...] by: Medical Executive Committee and Imaging Services SPLICER documented in this encounter Miscellaneous Notes * Therapy Evaluation - Martha Baca SLP - 02/15/2025 9:00 AM CST Images from the original note were not included. [facility] [address] [place] [address] Ph. 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 Pt is on [...] Penetration-Aspiration Scale. Dysphagia, 11, 93-98. Retrieved from Ning by [employer]. Swallowing Strategies Subsequent dry swallow: successful in [...] PO intake. Pt verbalized understanding and agreement. [facility] was briefed on the results and recommendations. All questions were answered to their satisfaction. At this time, outpatient therapy is warranted to address the deficits mentioned above. Patient has requested to attend outpatient therapy in [place]. To do next session: N/A Swallowing Recommendations [...] Thank you for this referral. Please contact [facility] Therapy Services at [phone] if you have any questions regarding information provided above. Martha Baca MA CCC-SEPARATING MACHINE OPERATOR [facility] Outpatient Neuro Therapy Services Direct Office Line: This documentation was created by [employer] mortgage loan specialist software (known for inherent mortgage loan specialist and grammar errors) using [employer]. Effort has been done to assure accuracy of mortgage loan specialist. Any obvious errors or omissions should be clarified with the author of the document. RELATED ENCOUNTERS Khloe Galvin NP Nurse Practitioner Specialty: Nurse Practitioner Family Progress Notes Signed Encounter Date: 12/01/2024 Expand All Collapse All GI Clinic Note Jose Armendariz [facility] [id number] 12/01/2024 Collaborative physician: Dandre Willingham MD Referring [...] the emergency room at [facility] [place] on 11/22/2024. Full ERvisit records are not [...] in the referral. He is accompanied byhis [id number]. He is a poor historian, presents in [...] Without cyanosis, deformity or pitting edema. SKIN: [place], warm, dry. LABS: Lab Results Component Value [...] provided verbal consent for the use of Lonely Sock to assist in documentation of today's visit. Contains text generated by [employer] SPLICER documented in this encounter Plan of Treatment Upcoming Encounters Date Type Department Care Team (Late st Contact Info) Description 03/14/2025 11:30 AM BAND SPLICER [facility] Visit [facility] Gastroenterology- [place] [address] [place] [address] Khloe Galvin NP [address] [address] 03/22/2025 11:00 AM BAND SPLICER Appointment [facility] MRI [address] [place] [address] Khloe Galvin NP [address] [address] 06/26/2025 2:45 PM CDT Office Visit [facility] [address] [facility] [address] [place] [address] Favio Polanco MD [address] [facility] [address] [place] [address] documented as of this encounter Procedures Procedure Name Priority Date/Time Associated Diagnosis Comments XR VIDEO SWALLOW W SPEECH Routine 02/15/2025 9:37 AM BAND SPLICER Odynophagia History of Marcelo esophagus documented in this encounter Results * XR VIDEO SWALLOW W SPEECH (02/15/2025 9:37 AM BAND SPLICER) Anatomical Region Laterality Modality Chest Computed Radiogr aphy 02/15/2025 9:41 AM BAND SPLICER Impressions 02/15/2025 9:56 AM BAND SPLICER IMPRESSION: Please see below. Exam: XR VIDEO [...] at 0941, Routine Given 02/15/2025 9:41 AM BAND SPLICER 230 mL barium sulfate (VARIBAR THIN LIQUID) 40% w/v from 81% w/w oral powder 74 Gram 74 Gram, Oral, PRE-PROCEDURE ONCE, 1 dose, Starting on Thu02/15/25 at 0937, Until Thu02/15/25 at 0941, Routine Given 02/15/2025 9:41 AM BAND SPLICER 74 Grams documented in this encounter Care Teams Sand Conditioner Relationship Specialty Start Date End Date Sam Fay MD PCP - General Emergency Medicine 12/22/18 documented as of this encounter
[2025-02-21] VITALS (7 sets, daily range): BP systolic 94–128; BP diastolic 48–72; PULSE 70–76; RESP 15–20; TEMP 36.4; O2SAT 98–100
--- OUTSIDE RECORDS SUMMARY | 2025-02-21 22:22 | XMS_ITS | Encounter Summary ---
Author Organization [facility] Address [address] [place] [address] Care Team Providers Care Turbo Operator Name Role Phone Sam Fay MD Primary Care Provider [phone] Encounter Details Date Type Department Care Team (Late st Contact Info) Description 02/03/2000 Outpatient Historical [facility] Primary Care - [address] [place] [address] Massimo Piña, DO NO ADDRESS ON FILE Social History Tobacco Use Types Packs/Day Years Used Date Smoking Tobacco: Never Assessed Sex and Gender Information Value Date Recorded Sex Assigned at Not on file Legal Sex Male 8:53 PM CHILD NUTRITION MANAGER Gender Identity Not on file Sexual Orientation Not on file documented as of this encounter Plan of Treatment Upcoming Encounters Date Type Department Care Team (Late st Contact Info) Description 03/14/2025 11:30 AM CHILD NUTRITION MANAGER Office Visit [facility] Gastroenterology- [place] [address] [place] [address] Khloe Galvin NP [address] [address] 03/22/2025 11:00 AM CHILD NUTRITION MANAGER Appointment [facility] MRI [address] [place] [address] Khloe Galvin NP [address] [address] 06/26/2025 2:45 PM CDT Office Visit [facility] [address] [place] [address] Favio Polanco MD [address] [place] [address] documented as of this encounter Visit Diagnoses Not on filedocumented in this encounter Additional Health Concerns Infection Onset Date Last Indicated Resolved Time R/O COVID-19 05/15/2024 05/15/2024 05/15/2024 1:12 PM CDT documented as of this encounter Care Teams Turbo Operator Relationship Specialty Start Date End Date Sam Fay MD PCP - General Emergency Medicine 12/22/18 documented as of this encounter
--- OUTSIDE RECORDS SUMMARY | 2025-02-21 22:22 | XMS_ITS | Encounter Summary ---
Author Organization [facility] Address [address] [place] [address] Care Team Providers Care Perforator Operator Oil Well Name Role Phone Sam Fay MD Primary Care Provider + [phone] Reason for Referral * Speech Therapy (Routine) - Open Specialty Diagnoses / Procedures Referred By Dg mai Referred To Contact Speech Therapy Diagnoses Odynophagia Dysphagia, unspecified type Khloe Galvin NP [address] [facility] [address] [place] [address] Phone: tel: fax: Referral ID Status Reason Start Date Expiration Date Visits Requested Visits Authorized [id number] Open Ordering Department To Schedule 02/17/2025 02/17/2026 1 1 EL CRACKER Reason for Visit * Reason Onset Date Comments referral faxed 02/17/2025 Encounter Details Date Type Department Care Team (Late st Contact Info) Description 02/17/2025 Telephone [facility] Gastroenterology- [place] [id number] [place] [address] Khloe Galvin NP [address] [facility] [address] [place] [address] referral faxed Social History Tobacco Use Types Packs/Day Years [...] on file Legal Sex Male 8:53 PM ENAMEL CRACKER Gender Identity Not on file Sexual Orientation Not on file documented as of this encounter Miscellaneous Notes * Telephone Encounter - Kinjal Zazueta RN - 02/17/2025 8:49 AM CST ----- Message from Khloe Galvin sent at 02/16/2025 4:56 PM ENAMEL CRACKER ----- Please fax order for therapy to [place]. ----- Message ----- From: Martha Baca SLP Sent: 02/16/2025 10:28 AM ENAMEL CRACKER To: STEPHON Rooney, I saw Jose for an MBS yesterday and am recommending therapy. They have requested to complete therapy at [email or web address] in [place]. Could someone from your office fax a referral to them? Their fax number is [phone]. It will befor dysphagia therapy. Thank you in advance for your help, Martha Baca MA CCC-CARPET INSTALLATION SPECIALIST [facility] Outpatient Neuro Therapy Services Direct Office Line: EL CRACKER documented in this encounter Plan of Treatment Upcoming Encounters Date Type Department Care Team (Late st Contact Info) Description 03/14/2025 11:30 AM ENAMEL CRACKER Office Visit [facility] Gastroenterology- [place] [address] [address] Khloe Galvin NP [address] [facility] [address] [place] [address] 03/22/2025 11:00 AM ENAMEL CRACKER Appointment [facility] [address] [place] [address] Khloe Galvin, CAD DESIGN ENGINEER [address] [facility] [address] [place] [address] 06/26/2025 2:45 PM CDT Office Visit [facility] [address] [facility] [address] [place] [address] Favio Polanco MD [address] [facility] [address] [place] [address] Scheduled Referrals Name Type Priority Associated Diagnoses Orde r Schedule AMB REFERRAL TO SPEECH THERAPY Outpatient Referral Routine Odynophagia Dysphagia, unspecified type Ordered: 02/17/2025 documented as of this encounter Visit Diagnoses Diagnosis Odynophagia- Primary Dysphagia, unspecified Dysphagia, unspecified type documented in this encounter Care Teams Perforator Operator Oil Well Relationship Specialty Start Date End Date Sam Fay MD PCP - General Emergency Medicine 12/22/18 documented as of this encounter
--- OUTSIDE RECORDS SUMMARY | 2025-02-21 22:22 | XMS_ITS | Encounter Summary ---
Author Organization [facility] Address [address] [place] [address] Care Team Providers Care Water Treatment Operator Name Role Phone Sam Fay MD Primary Care Provider [phone] Encounter Details Date Type Department Care Team (Late st Contact Info) Description 08/06/2004 Outpatient Historical [facility] Primary Care - [address] [place] [address] Massimo Piña, DO NO ADDRESS ON FILE Social History Tobacco Use Types Packs/Day Years Used Date Smoking Tobacco: Never Assessed Sex and Gender Information Value Date Recorded Sex Assigned at Not on file Legal Sex Male 8:53 PM CARD ASSEMBLER Gender Identity Not on file Sexual Orientation Not on file documented as of this encounter Plan of Treatment Upcoming Encounters Date Type Department Care Team (Late st Contact Info) Description 03/14/2025 11:30 AM CARD ASSEMBLER Office Visit [facility] Gastroenterology- [place] [address] [place] [address] Khloe Galvin NP [address] [address] 03/22/2025 11:00 AM CARD ASSEMBLER Appointment [facility] MRI [address] [place] [address] Khloe Galvin NP [address] [address] 06/26/2025 2:45 PM CDT Office Visit [facility] [address] [place] [address] Favio Polanco MD [address] [place] [address] documented as of this encounter Visit Diagnoses Not on filedocumented in this encounter Additional Health Concerns Infection Onset Date Last Indicated Resolved Time R/O COVID-19 05/15/2024 05/15/2024 05/15/2024 1:12 PM CDT documented as of this encounter Care Teams Water Treatment Operator Relationship Specialty Start Date End Date Sam Fay MD PCP - General Emergency Medicine 12/22/18 documented as of this encounter
--- OUTSIDE RECORDS SUMMARY | 2025-02-21 22:22 | XMS_ITS | Encounter Summary ---
Author Organization [facility] Address [address] [place] [address] Care Team Providers Care Diesel Truck Crane Operator Name Role Phone Sam Fay MD Primary Care Provider [phone] Encounter Details Date Type Department Care Team (Late st Contact Info) Description 10/11/1998 Outpatient Historical [facility] Primary Care - [address] [place] [address] Massimo Piña, DO NO ADDRESS ON FILE Social History Tobacco Use Types Packs/Day Years Used Date Smoking Tobacco: Never Assessed Sex and Gender Information Value Date Recorded Sex Assigned at Not on file Legal Sex Male 8:53 PM CONTRACTING SPECIALIST Gender Identity Not on file Sexual Orientation Not on file documented as of this encounter Plan of Treatment Upcoming Encounters Date Type Department Care Team (Late st Contact Info) Description 03/14/2025 11:30 AM CONTRACTING SPECIALIST Office Visit [facility] Gastroenterology- [place] [address] [place] [address] Khloe Galvin NP [address] [address] 03/22/2025 11:00 AM CONTRACTING SPECIALIST Appointment [facility] MRI [address] [place] [address] Khloe Galvin NP [address] [address] 06/26/2025 2:45 PM CDT Office Visit [facility] [address] [place] [address] Favio Polanco MD [address] [place] [address] documented as of this encounter Visit Diagnoses Not on filedocumented in this encounter Additional Health Concerns Infection Onset Date Last Indicated Resolved Time R/O COVID-19 05/15/2024 05/15/2024 05/15/2024 1:12 PM CDT documented as of this encounter Care Teams Diesel Truck Crane Operator Relationship Specialty Start Date End Date Sam Fay MD PCP - General Emergency Medicine 12/22/18 documented as of this encounter
--- OUTSIDE RECORDS SUMMARY | 2025-02-21 22:22 | XMS_ITS | Clinical Summary ---
Author Organization [facility] Address [address] [address] Care Team Providers Care Drop Forger Name Role Phone Sam Fay MD Primary [...] 09/27/2015 INFLUENZA VACCINE (#1) 2024 Care Teams Drop Forger Relationship Specialty Start Date End Date Sam Fay MD PCP - General Emergency Medicine 12/22/18
--- OUTSIDE RECORDS SUMMARY | 2025-02-21 22:22 | XMS_ITS | Encounter Summary ---
Author Organization [facility] Address [address] [place] [address] Care Team Providers Care Relationship Counselor Name Role Phone Sam Fay MD Primary Care Provider [phone] Encounter Details Date Type Department Care Team (Late st Contact Info) Description 12/26/1999 Outpatient Historical [facility] Primary Care - [address] [place] [address] Massimo Piña, DO NO ADDRESS ON FILE Social History Tobacco Use Types Packs/Day Years Used Date Smoking Tobacco: Never Assessed Sex and Gender Information Value Date Recorded Sex Assigned at Not on file Legal Sex Male 8:53 PM FINANCIAL ANALYSIS ADVISOR Gender Identity Not on file Sexual Orientation Not on file documented as of this encounter Plan of Treatment Upcoming Encounters Date Type Department Care Team (Late st Contact Info) Description 03/14/2025 11:30 AM FINANCIAL ANALYSIS ADVISOR Office Visit [facility] Gastroenterology- [place] [address] [place] [address] Khloe Galvin NP [address] [address] 03/22/2025 11:00 AM FINANCIAL ANALYSIS ADVISOR Appointment [facility] MRI [address] [place] [address] Khloe Galvin NP [address] [address] 06/26/2025 2:45 PM CDT Office Visit [facility] [address] [place] [address] Favio Polanco MD [address] [place] [address] documented as of this encounter Visit Diagnoses Not on filedocumented in this encounter Additional Health Concerns Infection Onset Date Last Indicated Resolved Time R/O COVID-19 05/15/2024 05/15/2024 05/15/2024 1:12 PM CDT documented as of this encounter Care Teams Relationship Counselor Relationship Specialty Start Date End Date Sam Fay MD PCP - General Emergency Medicine 12/22/18 documented as of this encounter
--- OUTSIDE RECORDS SUMMARY | 2025-02-21 22:22 | XMS_ITS | Clinical Summary ---
Author Organization [facility] Address [address] [place] [address] Dr MayerISIDRA [address] Phone Care Team Providers Care Senior Writer Name Role Phone Sam Fay MD Primary Care Provider +1 [phone] Allergies Active Allergy Reactions Criticality Noted Date [...] Encounters Date Type Department Care Team Description 02/17/2025 Telephone [facility] Gastroenterology- [place] [address] [facility] [address] [place] [address] Khloe Galvin NP referral faxed 02/15/2025 9:00 AM EDUCATION PARAPROFESSIONAL - 02/15/2025 11:59 PM EDUCATION PARAPROFESSIONAL Hospital Encounter [facility] Imaging Services [address] [place] [address] Khloe Galvin NP Discharge Disposition: Home or Self Care 01/24/2025 External Device Data STL ABSTRACTION Provider, Abstract 12/27/2024 External Device Data STL ABSTRACTION Provider, Abstract 12/20/2024 External Device Data STL ABSTRACTION Provider, Abstract 12/01/2024 8:30 AM CDT Office Visit [address] [address] Khloe Galvin NP Pancreatic lesion (Primary Dx); Diverticulitis; Abnormal CT scan, gastrointestinal tract; Constipation, unspecified constipation type; Odynophagia; History of Marcelo esophagus 11/24/2024 Orders Only [facility] Gastroenterology[address] [address] Lena Orellana MD Disease of pancreas (Primary Dx) from Last 3 Months Family History Medical [...] on file Legal Sex Male 8:53 PM EDUCATION PARAPROFESSIONAL Gender Identity Not on file Sexual Orientation [...] st Contact Info) Description 03/14/2025 11:30 AM EDUCATION PARAPROFESSIONAL Office Visit [facility] [place] [address] [facility] [address] [place] [address] Khloe Galvin NP [address] [address] 03/22/2025 11:00 AM EDUCATION PARAPROFESSIONAL Appointment [facility] MRI [address] [place] [address] Khloe Galvin NP [address] [address] 06/26/2025 2:45 PM CDT Office Visit [facility] [address] [facility] [address] [place] [address] Favio Polanco MD [address] [facility] [address] [place] [address] Health Maintenance Due Date Last Done Comments DIABETES ANNUAL FOOT EXAM 1958 DIABETES ANNUAL RETINAL EXAM 1958 DIABETES MICROALBUMIN ANNUAL SCREEN 1958 ZOSTER VACCINE (2 of 3) 08/30/2008 07/05/2008 RSV VACCINE (60+ or ) (1 - 1-dose 75+ series) 09/27/2015 INFLUENZA VACCINE (#1) 2024 , 12/15/2018, 11/30/2017, [...] SWALLOW W SPEECH Routine 02/15/2025 9:37 AM EDUCATION PARAPROFESSIONAL Odynophagia History of Marcelo esophagus CANCER ANTIGEN 19-9 Routine 12/01/2024 1 0:20 AM CDT Pancreatic lesion Abnormal CT scan, gastrointestinal tract COMPREHENSIVE METABOLIC PANEL Routine 12/01/2024 10:20 AM CDT Pancreatic lesion CBC WITH DIFFERENTIAL Routine 12/01/2024 10:20 AM CDT Pancreatic lesion LIPID RFLX Stat 05/15/2024 12:40 PM CDT HEMOGLOBIN A1C Stat 05/15/2024 12:40 PM CDT from Last 3 Months or Most Recently Relevant to Health Maintenance Results * XR VIDEO SWALLOW W SPEECH (02/15/2025 9:37 AM EDUCATION PARAPROFESSIONAL) Anatomical Region Laterality Modality Chest Computed Radiogr aphy 02/15/2025 9:41 AM EDUCATION PARAPROFESSIONAL Impressions 02/15/2025 9:56 AM EDUCATION PARAPROFESSIONAL IMPRESSION: Please see below. Exam: XR VIDEO [...] swallowing, please see detailed speech pathology report. Khloejosephine Galvin NP DIAGNOSTIC IMAGING ORDERABLE S Final Result * CANCER ANTIGEN 19-9 (12/01/2024 10:20 AM CDT) CA 19-9 30 <34 U/mL [facility] Comment: This test was performed using the Siemens chemiluminescent method. Values obtained from different assay methods cannot be used interchangeably. CA 19-9 levels, regardless of value, should not be interpreted as absolute evidence of the presence or absence of disease. FASTING:YES FASTING: YES Test Performed at: [facility] [address] [place] [address] Carmen Lake MD Blood 12/01/2024 10:2 0 AM CDT 12/01/2024 10:20 AM CDT Khloe L Galvin LIGHTNING ROD ERECTOR CHEMISTRY ORDERABLES Final R esult [facility] [phone] [facility] [address] [place] [address] * CBC WITH DIFFERENTIAL (12/01/2024 10:20 AM CDT) WBC 9.6 3.8 - 10.8 Thousand/u L [facility] RBC 4.89 4.20 - 5.80 Million/uL [facility] HEMOGLOBIN 14.8 13.2 - 17.1 g/dL [facility] RR HEMATOCRIT 45.4 38.5 - 50.0 % [facility] RR MCV 92.8 80.0 - 100.0 fL [facility] RR MCH 30.3 27.0 - 33.0 pg [facility] RR MCHC 32.6 32.0 - 36.0 g/dL [facility] RRL Comment: For adults, a slight decrease in the calculated MCHC value (in the range of 30 to 32 g/dL) is most likely not clinically significant; however, it should be interpreted with caution in correlation with other red cell parameters and the patient's clinical condition. RDW 14.2 11.0 - 15.0 % [facility] RR PLATELETS 194 140 - 400 Thousand/u L [facility] MPV 9.1 7.5 - 12.5 fL [facility] RR NEUTROPHIL ABSOLUTE 6,989 1,500 - 7,800 cells/uL [facility] RRL LYMPHOCYTE ABSOLUTE 1,718 850 - 3,900 cells/uL [facility] RRL MONOCYTE ABSOLUTE 653 200 - 950 cells/uL [facility] RRL EOSINOPHIL ABSOLUTE 182 15 - 500 cells/uL [facility] RRL BASOPHILS ABSOLUTE 58 0 - 200 cells/uL [facility] RRL NEUTROPHIL 72.8 % [facility] RRL LYMPHOCYTES 17.9 % [facility] RRL MONOCYTE 6.8 % [facility] RRL EOSINOPHILS 1.9 % [facility] RRL BASOPHILS 0.6 % [facility] RRL Comment: FASTING:YES FASTING: YES Test Performed at: [facility] [address] [place] [address] Bebeto Bauer Blood 12/01/2024 10:2 0 AM CDT 12/01/2024 10:20 AM CDT Khloe Johnson Glenis SZYMANSKI HEMATOLOGY ORDERABLES Final Result [facility] [phone] [facility] RRL [address] [place] [address] * (ABNORMAL) COMPREHENSIVE METABOLIC PANEL (12/01/2024 10:20 AM CDT) GLUCOSE 208(H) 65 - 99 mg/dL [facility] RR Comment: Fasting reference interval For someone without known diabetes, a glucose value >125 mg/dL indicates that they may have diabetes and this should be confirmed with a follow-up test. BUN 41(H) 7 - 25 mg/dL [facility] RRL CREATININE 1.68(H) 0.70 - 1.22 mg/dL [facility] RRL GFR 40(L) > OR = 60 mL/min/1.7 3m2 [facility] BUN/CREAT RATIO 24(H) 6 - 22 (calc) [facility] RRL SODIUM 139 135 - 146 mmol/L [facility] RRL POTASSIUM 5.2 3.5 - 5.3 mmol/L [facility] CHLORIDE 104 98 - 110 mmol/L [facility] RRL CO2 31 20 - 32 mmol/L [facility] RRL CALCIUM 10.3 8.6 - 10.3 mg/dL [facility] RRL TOTAL PROTEIN 6.8 6.1 - 8.1 g/dL [facility] RRL ALBUMIN 4.1 3.6 - 5.1 g/dL [facility] RRL GLOBULIN 2.7 1.9 - 3.7 g/dL (calc) [facility] RRL ALBUMIN/GLOBULIN RATIO 1.5 1.0 - 2.5 (calc) [facility] RRL BILIRUBIN TOTAL 0.7 0.2 - 1.2 mg/dL [facility] RRL ALKALINE PHOSPHATASE 105 35 - 144 U/L [facility] R[facility] AST 12 10 - 35 U/L [facility] RRL ALT 14 9 - 46 U/L [facility] RRL Comment: FASTING:YES FASTING: YES Test Performed at: [facility] RR [address] [place] [address] Bebeto Bauer Blood 12/01/2024 10:2 0 AM CDT 12/01/2024 10:20 AM CDT us Khloe Galvin NP CHEMISTRY ORDERABLES Final R esult [facility] [phone] [facility] [address] [place] [address] * (ABNORMAL) LIPID RFLX (05/15/2024 12:40 PM CDT) CHOLESTEROL 99 <200 mg/dL 05/15/2024 6:06 PM CDT [facility] TRIGLYCERIDE 92 <150 mg/dL 05/15/2024 6:06 PM CDT [facility] HDL 31(L) 40 - 59 mg/dL 05/15/2024 6:06 PM CDT [facility] LDL CALCULATED 50 <100 mg/dL 05/15/2024 6:06 PM CDT [facility] NON-HDL CHOLESTEROL 68 <130 mg/dL 05/15/2024 6:06 PM CDT [facility] Blood Venipuncture / Unknown 05/15/2024 12:40 PM CDT 05/15/2024 1:31 PM CDT Narrative [facility] - 05/15/2024 6:06 PM CDT TOTAL CHOLESTEROL [...] ORDERABLES Final Re sult Performing Organization Address [facility] de Phone Number [facility] CLIA # [id number] [address] [place] [id number] * (ABNORMAL) HEMOGLOBIN A1C (05/15/2024 12:40 PM CDT) HEMOGLOBIN A1C 7.6(H) <=5.6 % 05/15/2024 1:43 PM CDT [facility] EST. AVG GLUCOSE, A1C 171 mg/dL 05/15/2024 1:43 PM CDT [facility] Blood Venipuncture / Unknown 05/15/2024 12:40 PM CDT 05/15/2024 12:49 PM CDT [facility] - 05/15/2024 1:43 PM CDT HGB A1C INTERPRETATION NORMAL: <5.7% PRE-DIABETES: 5.7 - 6.4% DIABETES: 6.5% OR GREATER Jannet Mckoy MD CHEMISTRY ORDERABLES Final Re sult Performing Organization Address [facility] Co de Phone Number [facility] CLIA # [id number] [address] [address] from Last 3 Months or Most Recently Relevant to Health Maintenance Insurance [employer] HMO OPEN ACCESS MEDICARE PART A AND B RX [employer] Medicare Part D [facility] [employer] * Guarantor: [facility] [employer] D (C) Account Type Relation to Patient Date of Phone Billing Address Corporate Other DEFAULT ADDRESS [address] [employer] * Guarantor: [facility] [employer] (C) Account Type Relation to Patient Date of Phone Billing Address Corporate Other DEFAULT ADDRESS [address] [employer] Advance Directives For more information, please contact: [phone] * Full Code (Latest Code Status on File) Date Activated Date Inactivated Comments 09/05/2024 2:40 PM 09/12/2024 3:00 PM Care Teams Senior Writer Relationship Specialty Start Date End Date Sam Fay MD PCP - General Emergency Medicine 12/22/18
--- OUTSIDE RECORDS SUMMARY | 2025-02-21 22:22 | XMS_ITS | Encounter Summary ---
Author Organization [facility] Address [address] [place] [address] Care Team Providers Care Wild Oyster Harvester Name Role Phone Sam Fay MD Primary Care Provider [phone] [phone] Encounter Details Date Type Department Care Team (Late st Contact Info) Description 05/03/2007 Outpatient Historical [facility] Primary Care - [address] [place] [address] Massimo Piña, DO NO ADDRESS ON FILE Social History Tobacco Use Types Packs/Day Years Used Date Smoking Tobacco: Never Assessed Sex and Gender Information Value Date Recorded Sex Assigned at Not on file Legal Sex Male 8:53 PM FORMER HAND Gender Identity Not on file Sexual Orientation Not on file documented as of this encounter Plan of Treatment Upcoming Encounters Date Type Department Care Team (Late st Contact Info) Description 03/14/2025 11:30 AM FORMER HAND Office Visit [facility] Gastroenterology- [place] [address] [place] [address] Khloe Galvin NP [address] [address] 03/22/2025 11:00 AM FORMER HAND Appointment [facility] MRI [address] [place] [address] Khloe Galvin NP [address] [address] 06/26/2025 2:45 PM CDT Office Visit [facility] [address] [place] [address] Favio Polanco MD [address] [place] [address] documented as of this encounter Visit Diagnoses Not on filedocumented in this encounter Additional Health Concerns Infection Onset Date Last Indicated Resolved Time R/O COVID-19 05/15/2024 05/15/2024 05/15/2024 1:12 PM CDT documented as of this encounter Care Teams Wild Oyster Harvester Relationship Specialty Start Date End Date Sam Fay MD PCP - General Emergency Medicine 12/22/18 documented as of this encounter
--- OUTSIDE RECORDS SUMMARY | 2025-02-21 22:22 | XMS_ITS | Encounter Summary ---
Author Organization [facility] Address [address] [place] [address] Care Team Providers Care Ekg Monitor Name Role Phone Sam Fay MD Primary Care Provider [phone] Encounter Details Date Type Department Care Team (Late st Contact Info) Description 01/09/2000 Outpatient Historical [facility] Primary Care - [address] [place] [address] Massimo Piña, DO NO ADDRESS ON FILE Social History Tobacco Use Types Packs/Day Years Used Date Smoking Tobacco: Never Assessed Sex and Gender Information Value Date Recorded Sex Assigned at Not on file Legal Sex Male 8:53 PM ZYGLO TECHNICIAN Gender Identity Not on file Sexual Orientation Not on file documented as of this encounter Plan of Treatment Upcoming Encounters Date Type Department Care Team (Late st Contact Info) Description 03/14/2025 11:30 AM ZYGLO TECHNICIAN Office Visit [facility] Gastroenterology- [place] [address] [place] [address] Khloe Galvin NP [address] [address] 03/22/2025 11:00 AM ZYGLO TECHNICIAN Appointment [facility] MRI [address] [place] [address] Khloe Galvin NP [address] [address] 06/26/2025 2:45 PM CDT Office Visit [facility] [address] [place] [address] Favio Polanco MD [address] [place] [address] documented as of this encounter Visit Diagnoses Not on filedocumented in this encounter Additional Health Concerns Infection Onset Date Last Indicated Resolved Time R/O COVID-19 05/15/2024 05/15/2024 05/15/2024 1:12 PM CDT documented as of this encounter Care Teams Ekg Monitor Relationship Specialty Start Date End Date Sam Fay MD PCP - General Emergency Medicine 12/22/18 documented as of this encounter
--- OUTSIDE RECORDS SUMMARY | 2025-02-21 22:22 | XMS_ITS | Encounter Summary ---
Author Organization [facility] Address [address] [place] [address] Care Team Providers Care Form Layer Name Role Phone Sam Fay MD Primary Care Provider [phone] Encounter Details Date Type Department Care Team (Late st Contact Info) Description 06/12/2001 Outpatient Historical [facility] Primary Care - [address] [place] [address] Massimo Piña, DO NO ADDRESS ON FILE Social History Tobacco Use Types Packs/Day Years Used Date Smoking Tobacco: Never Assessed Sex and Gender Information Value Date Recorded Sex Assigned at Not on file Legal Sex Male 8:53 PM ELECTRONIC TECH Gender Identity Not on file Sexual Orientation Not on file documented as of this encounter Plan of Treatment Upcoming Encounters Date Type Department Care Team (Late st Contact Info) Description 03/14/2025 11:30 AM ELECTRONIC TECH Office Visit [facility] Gastroenterology- [place] [address] [place] [address] Khloe Galvin NP [address] [address] 03/22/2025 11:00 AM ELECTRONIC TECH Appointment [facility] MRI [address] [place] [address] Khloe Galvin NP [address] [address] 06/26/2025 2:45 PM CDT Office Visit [facility] [address] [place] [address] Favio Polanco MD [address] [place] [address] documented as of this encounter Visit Diagnoses Not on filedocumented in this encounter Additional Health Concerns Infection Onset Date Last Indicated Resolved Time R/O COVID-19 05/15/2024 05/15/2024 05/15/2024 1:12 PM CDT documented as of this encounter Care Teams Form Layer Relationship Specialty Start Date End Date Sam Fay MD PCP - General Emergency Medicine 12/22/18 documented as of this encounter
--- OUTSIDE RECORDS SUMMARY | 2025-02-21 22:22 | XMS_ITS | Encounter Summary ---
Author Organization [facility] Address [address] [place] [address] Care Team Providers Care Manager Music Name Role Phone Sam Fay MD Primary Care Provider [phone] Encounter Details Date Type Department Care Team (Late st Contact Info) Description 01/23/2000 Outpatient Historical [facility] Primary Care - [address] [place] [address] Massimo Piña, DO NO ADDRESS ON FILE Social History Tobacco Use Types Packs/Day Years Used Date Smoking Tobacco: Never Assessed Sex and Gender Information Value Date Recorded Sex Assigned at Not on file Legal Sex Male 8:53 PM DATA MIGRATION LEAD Gender Identity Not on file Sexual Orientation Not on file documented as of this encounter Plan of Treatment Upcoming Encounters Date Type Department Care Team (Late st Contact Info) Description 03/14/2025 11:30 AM DATA MIGRATION LEAD Office Visit [facility] Gastroenterology- [place] [address] [place] [address] Khloe Galvin NP [address] [address] 03/22/2025 11:00 AM DATA MIGRATION LEAD Appointment [facility] MRI [address] [place] [address] Khloe Galvin NP [address] [address] 06/26/2025 2:45 PM CDT Office Visit [facility] [address] [place] [address] Favio Polanco MD [address] [place] [address] documented as of this encounter Visit Diagnoses Not on filedocumented in this encounter Additional Health Concerns Infection Onset Date Last Indicated Resolved Time R/O COVID-19 05/15/2024 05/15/2024 05/15/2024 1:12 PM CDT documented as of this encounter Care Teams Manager Music Relationship Specialty Start Date End Date Sam Fay MD PCP - General Emergency Medicine 12/22/18 documented as of this encounter
--- OUTSIDE RECORDS SUMMARY | 2025-02-21 22:22 | XMS_ITS | Encounter Summary ---
Author Organization [facility] Address [address] [place] [address] Care Team Providers Care Oven Equipment Repairer Name Role Phone Sam Fay MD Primary Care Provider [phone] Encounter Details Date Type Department Care Team (Late st Contact Info) Description 03/12/2000 Outpatient Historical [facility] Primary Care - [address] [place] [address] Massimo Piña, DO NO ADDRESS ON FILE Social History Tobacco Use Types Packs/Day Years Used Date Smoking Tobacco: Never Assessed Sex and Gender Information Value Date Recorded Sex Assigned at Not on file Legal Sex Male 8:53 PM SERVICE ADVOCATE CONTACT Gender Identity Not on file Sexual Orientation Not on file documented as of this encounter Plan of Treatment Upcoming Encounters Date Type Department Care Team (Late st Contact Info) Description 03/14/2025 11:30 AM SERVICE ADVOCATE CONTACT Office Visit [facility] Gastroenterology- [place] [address] [place] [address] Khloe Galvin NP [address] [address] 03/22/2025 11:00 AM SERVICE ADVOCATE CONTACT Appointment [facility] MRI [address] [place] [address] Khloe Galvin NP [address] [address] 06/26/2025 2:45 PM CDT Office Visit [facility] [address] [place] [address] Favio Polanco MD [address] [place] [address] documented as of this encounter Visit Diagnoses Not on filedocumented in this encounter Additional Health Concerns Infection Onset Date Last Indicated Resolved Time R/O COVID-19 05/15/2024 05/15/2024 05/15/2024 1:12 PM CDT documented as of this encounter Care Teams Oven Equipment Repairer Relationship Specialty Start Date End Date Sam Fay MD PCP - General Emergency Medicine 12/22/18 documented as of this encounter
--- OUTSIDE RECORDS SUMMARY | 2025-02-21 22:22 | XMS_ITS | Encounter Summary ---
Author Organization [facility] Address [address] [place] [address] Care Team Providers Care School Leader Name Role Phone Sam Fay MD Primary Care Provider [phone] Encounter Details Date Type Department Care Team (Late st Contact Info) Description 01/15/1999 Outpatient Historical [facility] Primary Care - [address] [place] [address] Massimo Piña, DO NO ADDRESS ON FILE Social History Tobacco Use Types Packs/Day Years Used Date Smoking Tobacco: Never Assessed Sex and Gender Information Value Date Recorded Sex Assigned at Not on file Legal Sex Male 8:53 PM MIDDLEWARE ARCHITECT Gender Identity Not on file Sexual Orientation Not on file documented as of this encounter Plan of Treatment Upcoming Encounters Date Type Department Care Team (Late st Contact Info) Description 03/14/2025 11:30 AM MIDDLEWARE ARCHITECT Office Visit [facility] Gastroenterology- [place] [address] [place] [address] Khloe Galvin NP [address] [address] 03/22/2025 11:00 AM MIDDLEWARE ARCHITECT Appointment [facility] MRI [address] [place] [address] Khloe Galvin NP [address] [address] 06/26/2025 2:45 PM CDT Office Visit [facility] [address] [place] [address] Favio Polanco MD [address] [place] [address] documented as of this encounter Visit Diagnoses Not on filedocumented in this encounter Additional Health Concerns Infection Onset Date Last Indicated Resolved Time R/O COVID-19 05/15/2024 05/15/2024 05/15/2024 1:12 PM CDT documented as of this encounter Care Teams School Leader Relationship Specialty Start Date End Date Sam Fay MD PCP - General Emergency Medicine 12/22/18 documented as of this encounter
--- OUTSIDE RECORDS SUMMARY | 2025-02-21 22:22 | XMS_ITS | Encounter Summary ---
Author Organization [facility] Address [address] [place] [address] Care Team Providers Care Club Director Name Role Phone Sam Fay MD Primary Care Provider [phone] Encounter Details Date Type Department Care Team (Late st Contact Info) Description 08/13/2004 Outpatient Historical [facility] Primary Care - [address] [place] [address] Massimo Piña, DO NO ADDRESS ON FILE Social History Tobacco Use Types Packs/Day Years Used Date Smoking Tobacco: Never Assessed Sex and Gender Information Value Date Recorded Sex Assigned at Not on file Legal Sex Male 8:53 PM PHOTOGRAPH TINTER Gender Identity Not on file Sexual Orientation Not on file documented as of this encounter Plan of Treatment Upcoming Encounters Date Type Department Care Team (Late st Contact Info) Description 03/14/2025 11:30 AM PHOTOGRAPH TINTER Office Visit [facility] Gastroenterology- [place] [address] [place] [address] Khloe Galvin NP [address] [address] 03/22/2025 11:00 AM PHOTOGRAPH TINTER Appointment [facility] MRI [address] [place] [address] Khloe Galvin NP [address] [address] 06/26/2025 2:45 PM CDT Office Visit [facility] [address] [place] [address] Favio Polanco MD [address] [place] [address] documented as of this encounter Visit Diagnoses Not on filedocumented in this encounter Additional Health Concerns Infection Onset Date Last Indicated Resolved Time R/O COVID-19 05/15/2024 05/15/2024 05/15/2024 1:12 PM CDT documented as of this encounter Care Teams Club Director Relationship Specialty Start Date End Date Sam Fay MD PCP - General Emergency Medicine 12/22/18 documented as of this encounter
--- OUTSIDE RECORDS SUMMARY | 2025-02-21 22:22 | XMS_ITS | Encounter Summary ---
Author Organization [facility] Address [address] [place] [address] Care Team Providers Care Lead Java Software Engineer Name Role Phone Sam Fay MD Primary Care Provider [phone] Encounter Details Date Type Department Care Team (Late st Contact Info) Description 03/10/2002 Outpatient Historical [facility] Primary Care - [address] [place] [address] Massimo Piña, DO NO ADDRESS ON FILE Social History Tobacco Use Types Packs/Day Years Used Date Smoking Tobacco: Never Assessed Sex and Gender Information Value Date Recorded Sex Assigned at Not on file Legal Sex Male 8:53 PM CASE MANAGER SPECIALIST Gender Identity Not on file Sexual Orientation Not on file documented as of this encounter Plan of Treatment Upcoming Encounters Date Type Department Care Team (Late st Contact Info) Description 03/14/2025 11:30 AM CASE MANAGER SPECIALIST Office Visit [facility] Gastroenterology- [place] [address] [place] [address] Khloe Galvin NP [address] [address] 03/22/2025 11:00 AM CASE MANAGER SPECIALIST Appointment [facility] MRI [address] [place] [address] Khloe Galvin NP [address] [address] 06/26/2025 2:45 PM CDT Office Visit [facility] [address] [place] [address] Favio Polanco MD [address] [place] [address] documented as of this encounter Visit Diagnoses Not on filedocumented in this encounter Additional Health Concerns Infection Onset Date Last Indicated Resolved Time R/O COVID-19 05/15/2024 05/15/2024 05/15/2024 1:12 PM CDT documented as of this encounter Care Teams Lead Java Software Engineer Relationship Specialty Start Date End Date Sam Fay MD PCP - General Emergency Medicine 12/22/18 documented as of this encounter
--- OUTSIDE RECORDS SUMMARY | 2025-02-21 22:22 | XMS_ITS | Encounter Summary ---
Author Organization [facility] Address [address] [place] [address] Care Team Providers Care Folding Machine Feeder Name Role Phone Sam Fay MD Primary Care Provider [phone] Encounter Details Date Type Department Care Team (Late st Contact Info) Description 05/03/2007 Outpatient Historical [facility] Primary Care - [address] [place] [address] Massimo Piña, DO NO ADDRESS ON FILE Social History Tobacco Use Types Packs/Day Years Used Date Smoking Tobacco: Never Assessed Sex and Gender Information Value Date Recorded Sex Assigned at Not on file Legal Sex Male 8:53 PM POWER BALLAST MACHINE OPERATOR Gender Identity Not on file Sexual Orientation Not on file documented as of this encounter Plan of Treatment Upcoming Encounters Date Type Department Care Team (Late st Contact Info) Description 03/14/2025 11:30 AM POWER BALLAST MACHINE OPERATOR Office Visit [facility] Gastroenterology- [place] [address] [place] [address] Khloe Galvin NP [address] [address] 03/22/2025 11:00 AM POWER BALLAST MACHINE OPERATOR Appointment [facility] MRI [address] [place] [address] Khloe Galvin NP [address] [address] 06/26/2025 2:45 PM CDT Office Visit [facility] [address] [place] [address] Favio Polanco MD [address] [place] [address] documented as of this encounter Visit Diagnoses Not on filedocumented in this encounter Additional Health Concerns Infection Onset Date Last Indicated Resolved Time R/O COVID-19 05/15/2024 05/15/2024 05/15/2024 1:12 PM CDT documented as of this encounter Care Teams Folding Machine Feeder Relationship Specialty Start Date End Date Sam Fay MD PCP - General Emergency Medicine 12/22/18 documented as of this encounter
--- OUTSIDE RECORDS SUMMARY | 2025-02-21 22:22 | XMS_ITS | Encounter Summary ---
Author Organization [facility] Address [address] [place] [address] Care Team Providers Care Social Media Community Manager Name Role Phone Sam Fay MD Primary Care Provider [phone] Encounter Details Date Type Department Care Team (Late st Contact Info) Description 12/03/1999 Outpatient Historical [facility] Primary Care - [address] [place] [address] Massimo Piña, DO NO ADDRESS ON FILE Social History Tobacco Use Types Packs/Day Years Used Date Smoking Tobacco: Never Assessed Sex and Gender Information Value Date Recorded Sex Assigned at Not on file Legal Sex Male 8:53 PM TILE LAYER HELPER Gender Identity Not on file Sexual Orientation Not on file documented as of this encounter Plan of Treatment Upcoming Encounters Date Type Department Care Team (Late st Contact Info) Description 03/14/2025 11:30 AM TILE LAYER HELPER Office Visit [facility] Gastroenterology- [place] [address] [place] [address] Khloe Galvin NP [address] [address] 03/22/2025 11:00 AM TILE LAYER HELPER Appointment [facility] MRI [address] [place] [place] [address] Khloe Galvin NP [address] [address] 06/26/2025 2:45 PM CDT Office Visit [facility] [address] [place] [address] Favio Polanco MD [address] [place] [address] documented as of this encounter Visit Diagnoses Not on filedocumented in this encounter Additional Health Concerns Infection Onset Date Last Indicated Resolved Time R/O COVID-19 05/15/2024 05/15/2024 05/15/2024 1:12 PM CDT documented as of this encounter Care Teams Social Media Community Manager Relationship Specialty Start Date End Date Sam Fay MD PCP - General Emergency Medicine 12/22/18 documented as of this encounter
--- OUTSIDE RECORDS SUMMARY | 2025-02-21 22:22 | XMS_ITS | Encounter Summary ---
Author Organization [facility] Address [address] [place] [address] Care Team Providers Care Rattlesnake Farmer Name Role Phone Sam Fay MD Primary Care Provider [phone] Encounter Details Date Type Department Care Team (Late st Contact Info) Description 01/16/1998 Outpatient Historical [facility] Primary Care - [address] [place] [address] Massimo Piña, DO NO ADDRESS ON FILE Social History Tobacco Use Types Packs/Day Years Used Date Smoking Tobacco: Never Assessed Sex and Gender Information Value Date Recorded Sex Assigned at Not on file Legal Sex Male 8:53 PM WELL LOGGER Gender Identity Not on file Sexual Orientation Not on file documented as of this encounter Plan of Treatment Upcoming Encounters Date Type Department Care Team (Late st Contact Info) Description 03/14/2025 11:30 AM WELL LOGGER Office Visit [facility] Gastroenterology- [place] [address] [place] [address] Khloe Galvin NP [address] [address] 03/22/2025 11:00 AM WELL LOGGER Appointment [facility] MRI [address] [place] [address] Khloe Galvin NP [address] [address] 06/26/2025 2:45 PM CDT Office Visit [facility] [address] [place] [address] Favio Polanco MD [address] [place] [address] documented as of this encounter Visit Diagnoses Not on filedocumented in this encounter Additional Health Concerns Infection Onset Date Last Indicated Resolved Time R/O COVID-19 05/15/2024 05/15/2024 05/15/2024 1:12 PM CDT documented as of this encounter Care Teams Rattlesnake Farmer Relationship Specialty Start Date End Date Sam Fay MD PCP - General Emergency Medicine 12/22/18 documented as of this encounter
--- OUTSIDE RECORDS SUMMARY | 2025-02-21 22:22 | XMS_ITS | Encounter Summary ---
Author Organization [facility] Address [address] [place] [address] Care Team Providers Care Caustic Purification Operator Name Role Phone Sam Fay MD Primary Care Provider [phone] Encounter Details Date Type Department Care Team (Late st Contact Info) Description 12/02/2001 Outpatient Historical [facility] Primary Care - [address] [place] [address] Massimo Piña, DO NO ADDRESS ON FILE Social History Tobacco Use Types Packs/Day Years Used Date Smoking Tobacco: Never Assessed Sex and Gender Information Value Date Recorded Sex Assigned at Not on file Legal Sex Male 8:53 PM MASTER DATA ANALYST Gender Identity Not on file Sexual Orientation Not on file documented as of this encounter Plan of Treatment Upcoming Encounters Date Type Department Care Team (Late st Contact Info) Description 03/14/2025 11:30 AM MASTER DATA ANALYST Office Visit [facility] Gastroenterology- [place] [address] [place] [address] Khloe Galvin NP [address] [address] 03/22/2025 11:00 AM MASTER DATA ANALYST Appointment [facility] MRI [address] [place] [address] Khloe Galvin NP [address] [address] 06/26/2025 2:45 PM CDT Office Visit [facility] [address] [place] [address] Favio Polanco MD [address] [place] [address] documented as of this encounter Visit Diagnoses Not on filedocumented in this encounter Additional Health Concerns Infection Onset Date Last Indicated Resolved Time R/O COVID-19 05/15/2024 05/15/2024 05/15/2024 1:12 PM CDT documented as of this encounter Care Teams Caustic Purification Operator Relationship Specialty Start Date End Date Sam Fay MD PCP - General Emergency Medicine 12/22/18 documented as of this encounter
--- OUTSIDE RECORDS SUMMARY | 2025-02-21 22:22 | XMS_ITS | Encounter Summary ---
Author Organization [facility] Address [address] [place] [address] Care Team Providers Care Lunchroom Monitor Name Role Phone Sam Fay MD Primary Care Provider + [phone] Encounter Details Date Type Department Care Team (Late st Contact Info) Description 12/07/2007 Outpatient Historical [facility] WangMassimo remy DO NO ADDRESS ON FILE [place] Social History Tobacco Use Types Packs/Day Years Used Date Smoking Tobacco: Never Assessed Sex and Gender Information Value Date Recorded Sex Assigned at Not on file Legal Sex Male 8:53 PM CAMPUS RECEPTIONIST Gender Identity Not on file Sexual Orientation Not on file documented as of this encounter Plan of Treatment Upcoming Encounters Date Type Department Care Team (Late st Contact Info) Description 03/14/2025 11:30 AM CAMPUS RECEPTIONIST Office Visit [facility] Gastroenterology- [place] [address] [facility] [address] [place] [address] Khloe Gavlin, DREDGE RUNNER [address] [place] [address] 03/22/2025 11:00 AM CAMPUS RECEPTIONIST Appointment [facility] MRI [address] [place] [address] Khloe Galvin, DREDGE RUNNER [address] [address] 06/26/2025 2:45 PM CDT Office Visit [facility] [address] [facility] [address] [place] [address] Favio Polanco MD [address] [place] [address] documented as of this encounter Procedures Procedure Name Priority Date/Time Associated Diagnosis Comments XR CHEST PA AND LATERAL 2 VW Routine 12/07/2007 10:52 AM CDT documented in this encounter Results * XR CHEST PA AND LATERAL (12/07/2007 10:52 AM CDT) Anatomical Region Laterality Modality Chest Other 12/07/2007 10:5 2 AM CDT Narrative 12/07/2007 11:42 AM CDT [address] [place] [address] [place], [place] [address] Admit Date: 12/07/2007 ESEQUIEL ARMENDARIZ Sex: M Admit Prov: MASSIMO FRIAS Date: 1940 Primary Care Prov: MASSIMO FRIAS CMRN: [id number] Room: [facility] SSN: [address] [place] [address] IMAGING SERVICES Ordering Prov: N/A Accession Number: [id number] Interpretation CHEST 2 VIEWS, 12/07/2007 Clinical History: [...] by: ALINA ALONSO12/07/2007 11:41 Transcribed: 12/07/2007 10:58 [facility] Procedure Note Alina Alonso MD - 12/07/2007 [address] [address] [place] [address] Admit Date: 12/07/2007 ESEQUIEL ARMENDARIZ Sex: M Admit Prov: MASSIMO FRIAS Date: 1940 Primary Care Prov: MASSIMO FRIAS CMRN: [id number] Room: [facility] SSN: [id number] IMAGING SERVICES Ordering Prov: N/A Interpretation CHEST [...] documented as of this encounter Care Teams Lunchroom Monitor Relationship Specialty Start Date End Date Sam Fay MD PCP - General Emergency Medicine 12/22/18 documented as of this encounter
--- OUTSIDE RECORDS SUMMARY | 2025-02-21 22:22 | XMS_ITS | Encounter Summary ---
Author Organization [facility] Address [address] [place] [address] Care Team Providers Care Cafe Aide Name Role Phone Sam Fay MD Primary Care Provider [phone] Encounter Details Date Type Department Care Team (Late st Contact Info) Description 06/26/2000 Outpatient Historical [facility] Primary Care - [address] [place] [address] Massimo Piña, DO NO ADDRESS ON FILE Social History Tobacco Use Types Packs/Day Years Used Date Smoking Tobacco: Never Assessed Sex and Gender Information Value Date Recorded Sex Assigned at Not on file Legal Sex Male 8:53 PM TREE AND SHRUB TECHNICIAN Gender Identity Not on file Sexual Orientation Not on file documented as of this encounter Plan of Treatment Upcoming Encounters Date Type Department Care Team (Late st Contact Info) Description 03/14/2025 11:30 AM TREE AND SHRUB TECHNICIAN Office Visit [facility] Gastroenterology- [place] [address] [place] [address] Khloe Galvin NP [address] [address] 03/22/2025 11:00 AM TREE AND SHRUB TECHNICIAN Appointment [facility] MRI [address] [place] [address] Khloe Galvin NP [address] [address] 06/26/2025 2:45 PM CDT Office Visit [facility] [address] [place] [address] Favio Polanco MD [address] [place] [address] documented as of this encounter Visit Diagnoses Not on filedocumented in this encounter Additional Health Concerns Infection Onset Date Last Indicated Resolved Time R/O COVID-19 05/15/2024 05/15/2024 05/15/2024 1:12 PM CDT documented as of this encounter Care Teams Cafe Aide Relationship Specialty Start Date End Date Sam Fay MD PCP - General Emergency Medicine 12/22/18 documented as of this encounter
--- NOTE | 2025-02-21 22:28 | ECG_ITS ---
[facility] [facility] Test Date: 2025-02-21 Pat Name: Jose Armendariz Department: Room: Gender: Male Yarding Supervisor: : 1940 Requested By: Bashir Galan Order Number: [id number] Jose MD: Pippa Zimmerman M.D. Measurements Intervals [place] Rate: 74 P: 46 IL: 238 QRS: 41 QRSD: 138 T: 3 QT: 411 QTc: 458 Interpretive Statements SINUS RHYTHM WITH FIRST DEGREE AV BLOCK RIGHT BUNDLE BRANCH BLOCK [120+ ms QRS DURATION, UPRIGHT V1, 40+ ms S IN I/aVL/V4/V5/V6] INFERIOR MYOCARDIAL INFARCTION , OF INDETERMINATE AGE [40+ ms Q WAVE AND/OR ST/T ABNORMALITY IN II/aVF] Compared to ECG 01/26/2025 02:18:30 Myocardial infarct finding now present Electronically Signed On 02-22-2025 21:40:02 SCHEME TECHNICIAN by Pippa Zimmerman M.D. [email or web address]
--- NOTE | 2025-02-21 22:35 | XRR_ITS ---
PROCEDURE INFORMATION: Exam: XR Chest Exam date and time: 02/21/2025 11:38 PM Age: 84 years old Clinical indication: Shortness of breath; Prior surgery; Surgery date: 6+ months; Surgery type: Double bypass, maze; Additional info: SOB TECHNIQUE: Imaging protocol: Radiologic exam of the chest. Views: 1 view. COMPARISON: CR (CHEST, ) 01/26/2025 3:06 AM FINDINGS: Lungs: Unremarkable. No consolidation. Pleural spaces: No focal consolidation, pleural effusion, or pneumothorax. Heart/Mediastinum: Unremarkable. No cardiomegaly. Bones/joints: Sternotomy wires. XR/XR chest 1V portable [id number] IMPRESSION: No focal consolidation, pleural effusion, or pneumothorax.
--- NOTE | 2025-02-21 22:39 | W.ED.SYNCOPE ---
HPI - Syncope General: Chief Complaint: Syncope Stated Complaint: sob History of Present Illness: Patient is a 84-year-old male with past medical history of HLD, hypertension, GERD, BPH, dementia, diabetes, A-fib, CAD, CHF who presents to the ED with a brief unresponsive episode. EMS states he had a 30 to 62nd unresponsive episode, where he had turned blue, patient himself does not recall this episode, mqtsizvx-qm-[id number] thought that he had a brief cardiac arrest, no compressions were done, by the time EMS arrived, he was GCS 15 with stable vitals. They report that he previously had a Holter monitor and it had recorded a episode of V-fib previously. He chronically wears oxygen, denies any recent fevers, worsening cough, NVD, abdominal pain, urinary changes, back pain. He reports no recent falls. He feels asymptomatic at this time. He reports having a scratchy feeling in his throat and coughing just prior to this event. No seizure-like activity seen. Related Data Home Medications ?Medication ?Instructions ?Recorded ?Confirmed atorvastatin 80 mg tablet 80 mg PO QPM 03/31/19 07/30/23 calcium polycarbophil 625 mg tablet 1,250 mg PO DAILY 03/31/19 07/30/23 magnesium oxide 400 mg (241.3 mg 400 mg PO BID 03/31/19 07/30/23 magnesium) tablet (MagOx) omeprazole 20 mg tablet,delayed 20 mg PO BID 03/31/19 07/30/23 release cholecalciferol (vitamin D3) 50 2,000 unit PO QPM 02/14/20 07/30/23 mcg (2,000 unit) tablet (Vitamin D3) aspirin 81 mg tablet,delayed 81 mg PO BEDTIME 07/20/20 07/30/23 release finasteride 5 mg tablet 5 mg PO QPM 07/20/20 07/30/23 duloxetine 20 mg capsule,delayed 40 mg PO DAILY 09/05/22 07/30/23 release memantine 5 mg tablet 5 mg PO BID 09/05/22 07/30/23 semaglutide 0.25 mg or 0.5 mg (2 0.5 mg SUBCUT Q7D 09/05/22 07/30/23 mg/3 mL) subcutaneous pen injector (Ozempic) buspirone 10 mg tablet 5 mg PO TID 04/14/23 07/30/23 pyridoxine (vitamin B6) 100 mg 100 mg PO QAM 04/14/23 07/30/23 tablet (Vitamin B-6) vitamin B complex 2 tab PO QAM 04/14/23 07/30/23 acetaminophen 500 mg tablet 500 mg PO QID PRN Pain 07/09/23 07/30/23 carvedilol 3.125 mg tablet 3.125 mg PO BID 07/09/23 07/30/23 fluoride (sodium) 1.1 % dental 1 applic dental DAILY 07/09/23 07/30/23 cream (Sodium Fluoride 5000 Plus) furosemide 40 mg tablet 40 mg PO QAM PRN Edema 07/09/23 07/30/23 midodrine 10 mg tablet 10 mg PO TID PRN LOW BLOOD 07/09/23 07/30/23 omega 2-bnf-bjm-fish oil 1,000 mg 1 cap PO BID 07/09/23 07/30/23 (120 mg-180 mg) capsule (Fish Oil) potassium chloride 20 mEq 20 meq PO DAILY PRN with lasix 07/09/23 07/30/23 tablet,extended release(part/cryst) insulin glargine 100 unit/mL 20 unit SUBCUT BEDTIME 07/30/23 07/30/23 subcutaneous solution (Lantus U-100 Insulin) Previous Rx's ?Medication ?Instructions ?Recorded tamsulosin 0.4 mg capsule 0.4 mg PO BID #180 caps 09/27/20 albuterol sulfate 90 mcg/actuation 2 inh inhalation Q4H PRN shortness 04/04/23 aerosol inhaler of breath or wheezing #6.7 grams diabetic shoes with 3 inserts #1 ea 05/29/23 apixaban 5 mg tablet (Eliquis) See Rx Instructions .Route 08/05/23 .COMPLEX #90 tabs cephalexin 500 mg capsule 500 mg PO BID #10 caps 01/26/25 diazepam 5 mg tablet (Valium) 5 mg PO BID PRN muscle spasm #6 01/26/25 tabs tizanidine 2 mg capsule 2 mg PO BID PRN muscle spasticity 01/26/25 #14 caps Allergies Allergy/AdvReac Type Severity Reaction Status Date / Time lisinopril Allergy ALGY-Rash Verified 01/26/25 02:21 Review of Systems General: Reports: 10 or more systems reviewed and unremarkable except in HPI and below PFSH ED PFSH: Medical History (Updated 02/03/25 @ 00:00 by TREASURE Orozco) Depression Chronic kidney disease Hyperlipidemia Atrial fibrillation Urgency incontinence Benign prostatic hyperplasia with lower urinary tract symptoms Urolithiasis Carotid bruit Syncope Diabetes mellitus Hypertension CHF (congestive heart failure) CAD (coronary artery disease) This patient had a coronary bypass surgery in 2008 along with a mitral valve repair and a maze procedure, at the [facility] in [place]. Surgical History History of tonsillectomy and adenoidectomy History of loop recorder placed late 2020 or early 2021 H/O carpal tunnel repair bilateral S/P trigger finger release History of maze procedure History of mitral valve replacement with bioprosthetic valve S/P ureteral stent placement Hx of CABG Family History Mother , AT AGE 86 No problems noted. Father , AT AGE 65 Stroke Other Hyperlipidemia Hypertension Social History Smoking and tobacco/nicotine status: unknown if used tobacco/nicotine Alcohol intake: never Substance/Drug Use: never Lives independently: Yes Marital status: / Current occupational status: retired Physical Exam Narrative: EXAM NARRATIVE: Patient overall well-appearing, GCS 15, afebrile, vital signs stable on arrival. Alert and oriented x 4, moving all 4 extremities symmetrically and spontaneously, PERRL, no nystagmus, EOMI. Breathing comfortably on home 4 L, saturating in mid 90s, decreased breath sounds but nothing adventitious, no increased work of breathing, no signs of respiratory distress. Abdomen soft, protuberant, no overlying skin changes, bowel sounds intact, no CVA tenderness. Normal sinus rhythm with no murmurs, no leg swelling, 2+ pulses throughout. Course Vital Signs: Vital signs: Vital Signs Temperature 97.6 F 02/21/25 22:16 Pulse Rate 84 02/22/25 04:30 Respiratory Rate 20 H 02/21/25 22:16 Blood Pressure 170/80 02/22/25 04:30 Pulse Oximetry 100 02/22/25 04:30 Oxygen Delivery Me thod Nasal Cannula 02/22/25 04:30 Oxygen Flow Rate 4 02/22/25 04:30 Fraction of Inspir ed Oxygen 40 02/22/25 01:43 MDM - Syncope Medical Decision Making -ddx: Vasovagal versus orthostatic versus cardiogenic syncope, choking event/asphyxiation, dysrhythmia, seizure - Patient presents after about 60 seconds unresponsive episode at home, was apparently turning blue, unclear if he had a pulse during this time but no compressions or other interventions were done and he seemingly returned to baseline before EMS got there, patient does not recall event but remembers a scratchy throat and having coughing just prior. He recalls no recent illness, abdominal pain, NVD. Patient does have an extensive cardiac history, denies any recent chest pains, syncope, trauma. Will evaluate with cardiac/infectious workup and reassess. Patient completely asymptomatic at this time and not needing any medication. - Patient with mild respiratory acidosis on VBG, probably correlating with this choking/gasping/eminent respiratory arrest event, for this was placed on BiPAP with a DuoNeb given, patient's respiratory status greatly improved with this, after period of hours he still appeared more comfortable and then was transitioned back to nasal cannula. Remainder of laboratory studies reassuring with no signs of systemic infection or inflammation, no signs of pneumonia, severe fluid overload, pneumonitis on chest x-ray. Seemingly very near baseline elevated creatinine, BNP and troponin, no clinical concerns for active ACS. Patient was then admitted to the hospital for further management in setting of his acute respiratory event and further monitoring. Patient stable at this time, epnctnxy-du-ojf at bedside and updated with plan of care. Lab Data 02/21/25 22:54 02/21/25 22:54 Radiology Impressions Chest X-Ray 02/21/25 22:35 IMPRESSION: No focal consolidation, pleural effusion, or pneumothorax. Laboratory Results WBC 10.15 10^3/uL (3.29-11.43) 02/21/25 22:54 RBC 4.80 10^6/uL (3.85-5.65) 02/21/25 22:54 Hgb 14.30 g/dL (11.27-16.99) 02/21/25 22:54 Hct 44.4 % (37-53) 02/21/25 22:54 MCV 92.5 fl (82-101) 02/21/25 22:54 MCH 29.8 pg (27-33) 02/21/25 22:54 MCHC 32.2 g/dL (30-55) 02/21/25 22:54 RDW 13.7 % (12.1-15.1) 02/21/25 22:54 Plt Count 158 10^3/cmm (157-399) 02/21/25 22:54 MPV 9.4 fL (7.4-10.4) 02/21/25 22:54 Neut % (Auto) 80.7 % 02/21/25 22:54 Lymph % (Auto) 10.3 % 02/21/25 22:54 [place] % (Auto) 6.1 % 02/21/25 22:54 Eos % (Auto) 1.6 % 02/21/25 22:54 Baso % (Auto) 0.5 % 02/21/25 22:54 Neut # (Auto) 8.19 10^3/uL (1.8-7.7) H 02/21/25 22:54 Lymph # (Auto) 1.1 10^3/uL (0.8-4.8) 02/21/25 22:54 [place] # (Auto) 0.6 10^3/uL (0.2-0.9) 02/21/25 22:54 Eos # (Auto) 0.2 10^3/uL (0.0-0.8) 02/21/25 22:54 Baso # (Auto) 0.1 10^3/uL (0.0-0.1) 02/21/25 22:54 Nucleated RBC % (auto) 0 % 02/21/25 22:54 Nucleated RBCs # 0.0 /100WBC 02/21/25 22:54 APTT 36.0 SECONDS (23.9-36.7) 02/21/25 22:54 Specimen Type Venous 02/21/25 22:48 Ed Test N/a 02/21/25 22:48 VBG pH 7.25 (7.32-7.42) L 02/21/25 22:48 VBG pCO2 64.0 mmHg (41-51) H* 02/21/25 22:48 VBG pO2 32.6 mmHg (25-40) 02/21/25 22:48 VBG HCO3 28.0 mmol/L (24-28) 02/21/25 22:48 VBG Base Excess -0.8 mmol/L (-3.0-3.0) 02/21/25 22:48 VBG Hematocrit 44.3 % (42-52) 02/21/25 22:48 Composition Mixer ID [email or web address] 02/21/25 22:48 Sodium 141 mmol/L (136-145) 02/21/25 22:54 Potassium 4.3 mmol/L (3.5-5.1) 02/21/25 22:54 Chloride 104 mmol/L (98-107) 02/21/25 22:54 Carbon Dioxide 27 mmol/L (22-29) 02/21/25 22:54 Anion Gap 14.3 (5-19) 02/21/25 22:54 BUN 31 mg/dL (8-23) H 02/21/25 22:54 Creatinine 1.7 mg/dL (0.7-1.2) H 02/21/25 22:54 GFR Calculation Not Reportable 02/21/25 22:54 Glucose 126 mg/dL (65-115) H 02/21/25 22:54 Calculated Osmolality 300 mOsm/kg (285-295) H 02/21/25 22:54 Lactic Acid 1.5 mmol/L (0.5-2.2) 02/21/25 22:54 Calcium 9.3 mg/dL (8.5-10.5) 02/21/25 22:54 Phosphorus 3.6 mg/dL (2.5-4.5) 02/21/25 22:54 Magnesium 1.9 mg/dL (1.7-2.3) 02/21/25 22:54 Total Bilirubin 0.4 mg/dL (0.15-1.2) 02/21/25 22:54 AST 12 U/L (0-40) 02/21/25 22:54 ALT 15 U/L (0-41) 02/21/25 22:54 Alkaline Phosphatase 118 U/L (40-130) 02/21/25 22:54 Troponin T Baseline 38 ng/L (0-15) H 02/21/25 22:54 Troponin T 60 Minute 44.07 ng/L (0-15) H 02/21/25 23:58 Delta Troponin T 6.07 ABS# (0-10) 02/21/25 23:58 C-React Prot High Sens 0.380 mg/dL (0.0-0.3) H 02/21/25 22:54 NT-Pro-B Natriuret Pep 840 pg/mL (0-450) H 02/21/25 22:54 Total Protein 6.3 g/dL (6.6-8.7) L 02/21/25 22:54 Albumin 4.1 g/dL (3.5-5.2) 02/21/25 22:54 Globulin 2.2 g/dL (1.3-4.6) 02/21/25 22:54 Influenza A (PCR) Negative (Negative) 02/21/25 22:40 Influenza Type B (PCR) Negative (Negative) 02/21/25 22:40 RSV (PCR) Negative (Negative) 02/21/25 22:40 SARS-CoV-2 (PCR) Negative (Negative) 02/21/25 22:40 All radiology interpretation(s) finalized by discharge Discharge Plan Discharge Condition: Stable Prescriptions: No Action tamsulosin 0.4 mg capsule 0.4 mg PO BID Qty: 180 3RF memantine 5 mg tablet 5 mg PO BID duloxetine 20 mg capsule,delayed release(DR/EC) 40 mg PO DAILY Ozempic 0.25 mg or 0.5 mg (2 mg/3 mL) pen injector 0.5 mg SUBCUT Q7D Rx Instructions: ON THURSDAY (DME) diabetic shoes with 3 inserts See Rx Instructions .Route .MEDSUPPLY Qty: 1 0RF Rx Instructions: As directed to the shoe gulida Eliquis 5 mg tablet See Rx Instructions .ROUTE .COMPLEX Qty: 90 3RF Dose Instruction: TAKE ONE-HALF TABLET BY MOUTH TWICE A DAY FOR ATRIAL FIBRILLATION. THIS TABLET IS TO BE CUT IN HALF FOR YOUR DOSE Rx Instructions: TAKE ONE-HALF TABLET BY MOUTH TWICE A DAY FOR ATRIAL FIBRILLATION. THIS TABLET IS TO BE CUT IN HALF FOR YOUR DOSE atorvastatin 80 mg Tablet 80 mg PO QPM magnesium oxide [MagOx] 400 mg (241.3 mg magnesium) Tablet 400 mg PO BID calcium polycarbophil 625 mg Tablet 1,250 mg PO DAILY omeprazole 20 mg Tablet,Delayed Release (Dr/Ec) 20 mg PO BID cholecalciferol (vitamin D3) [Vitamin D3] 50 mcg (2,000 unit) tablet 2,000 unit PO QPM aspirin 81 mg Tablet,Delayed Release (Dr/Ec) 81 mg PO BEDTIME finasteride 5 mg Tablet 5 mg PO QPM buspirone 10 mg Tablet 5 mg PO TID vitamin B complex Tablet 2 tab PO QAM pyridoxine (vitamin B6) [Vitamin B-6] 100 mg Tablet 100 mg PO QAM furosemide 40 mg tablet 40 mg PO QAM PRN (Reason: Edema) acetaminophen 500 mg Tablet 500 mg PO QID PRN (Reason: Pain) carvedilol 3.125 mg Tablet 3.125 mg PO BID Rx Instructions: must administer with a meal/food potassium chloride 20 mEq tablet,ER particles/crystals 20 meq PO DAILY PRN (Reason: with lasix) midodrine 10 mg tablet 10 mg PO TID PRN (Reason: LOW BLOOD) fluoride (sodium) [Sodium Fluoride 5000 Plus] 1.1 % Cream 1 applic DENTAL DAILY omega 0-nvn-zsc-fish oil [Fish Oil] 1,000 mg (120 mg-180 mg) Capsule 1 cap PO BID tizanidine 2 mg capsule 2 mg PO BID PRN (Reason: muscle spasticity) Qty: 14 0RF cephalexin 500 mg capsule 500 mg PO BID Qty: 10 0RF diazepam [Valium] 5 mg tablet 5 mg PO BID PRN (Reason: muscle spasm) Qty: 6 0RF albuterol sulfate 90 mcg/actuation HFA aerosol inhaler 2 inh INHALATION Q4H PRN (Reason: shortness of breath or wheezing) Qty: 6.7 1RF Lantus U-100 Insulin 100 unit/mL solution 20 unit SUBCUT BEDTIME Referrals: Lena Orellana MD [Primary Care Provider, Family Practice] Print Language: Zimbabwean Coding Level of Care Code ED Guillotine Operator for Nathaniel Alicea
[2025-02-21 23:03] LABS: Hematocrit 44.4 % (37-53); Hemoglobin 14.30 g/dL (11.27-16.99); Mean Corpuscular HGB Conc 32.2 g/dL (30-55); Mean Corpuscular Hemoglobin 29.8 pg (27-33); Mean Corpuscular Volume 92.5 fl (82-101); Nucleated Red Blood Cells % 0 %; Platelet Count 158 10^3/cmm (157-399); Red Blood Count 4.80 10^6/uL (3.85-5.65); White Blood Count 10.15 10^3/uL (3.29-11.43)
[2025-02-21 23:24] LABS: Partial Thromboplastin Time 36.0 SECONDS (23.9-36.7)
[2025-02-21 23:26] LABS: Base Excess VBG -0.8 mmol/L (-3.0-3.0); Blood Gas Sample Type Venous; HCO3 VBG 28.0 mmol/L (24-28); PCO2 VBG 64.0 mmHg (41-51); PO2 VBG 32.6 mmHg (25-40); Venous Blood Gas Hematocrit 44.3 % (42-52); pH VBG 7.25 (7.32-7.42)
[2025-02-21 23:29] LABS: Troponin(5th) Baseline 38 ng/L (0-15)
[2025-02-21 23:30] LABS: Respiratory Syncytial Virus Ce NEGATIVE (Negative); SARS-CoV-2 PCR NEGATIVE (Negative)
[2025-02-21 23:34] LABS: Lactic Sepsis W/Reflex 1.5 mmol/L (0.5-2.2)
--- NOTE | 2025-02-21 23:36 | ECG_ITS ---
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 [email or web address]
[2025-02-21 23:42] LABS: Alanine Aminotransferase 15 U/L (0-41); Albumin Level 4.1 g/dL (3.5-5.2); Alkaline Phosphatase 118 U/L (40-130); Anion Gap 14.3 (5-19); Aspartate Amino Transferase 12 U/L (0-40); Blood Urea Nitrogen 31 mg/dL (8-23); Calcium 9.3 mg/dL (8.5-10.5); Carbon Dioxide 27 mmol/L (22-29); Chloride 104 mmol/L (98-107); Globulin 2.2 g/dL (1.3-4.6); Glucose 126 mg/dL (65-115); Magnesium 1.9 mg/dL (1.7-2.3); NT Pro B Type Natriuretic Pept 840 pg/mL (0-450); Osmolality Calculated 300 mOsm/kg (285-295); Potassium 4.3 mmol/L (3.5-5.1); Sodium 141 mmol/L (136-145); Total Protein 6.3 g/dL (6.6-8.7)
[2025-02-22] VITALS (30 sets, daily range): BP systolic 92–170; BP diastolic 48–96; PULSE 69–93; RESP 16–19; TEMP 36.2–36.5; O2SAT 94–100
[2025-02-22 01:45] LABS: CRP High Sensitivity Cardiac 0.380 mg/dL (0.0-0.3)
--- NOTE | 2025-02-22 05:51 | PM.HP ---
Providers/Chief Complaint Primary Care Provider: Lena Orellana MD Chief Complaint: sob History of Present Illness Jose Armendariz is a 84 year old male lives with his son and gytkiyap-hu-myg. Patient has recent modified barium swallow showing aspiration. He states he coughs and chokes with a eating at times. Today he was having a choking event and coughing when he passed out and was unresponsive for 30 seconds. His rpjpupqt-ly-fuk bumped him in the chest and slapped him a few times to get him awake but did not check pulse or do actual CPR. Patient was brought in by EMS with GCS of 15. He was noted to be hypercarbic and was placed on BiPAP for 2 hours here in improved. Blood gas were not rechecked. Patient states he is on CPAP at home which he uses nightly but does not know his settings. Patient states he had a maze procedure in 2008 and did well until the time of the pandemic in 2019. After that he started to fall often. He has been seen in the emergency department 3 times for falls within the last 5 months. He has also had visit for bradycardia. Last echo 02/2024 showed LVEF 45% with diastolic dysfunction grade 3/4, pulmonary hypertension. Patient reports that he had carotid Doppler in [place] to Dr. Galan but we do not have those records. Review of Systems Narrative: General No fevers chills Cardiovascular no chest pain or palpitations Respiratory denies shortness of breath currently he admits to the choking episodes with eating Medications/Allergies Home Medications ?Medication ?Instructions ?Recorded ?Confirmed ?Last Taken ?Type atorvastatin 80 mg tablet 80 mg PO QPM 03/31/19 07/30/23 07/29/23 History calcium polycarbophil 625 mg tablet 1,250 mg PO DAILY 03/31/19 07/30/23 07/30/23 History magnesium oxide 400 mg (241.3 mg 400 mg PO BID 03/31/19 07/30/23 07/30/23 History magnesium) tablet (MagOx) omeprazole 20 mg tablet,delayed 20 mg PO BID 03/31/19 07/30/23 07/30/23 History release cholecalciferol (vitamin D3) 50 2,000 unit PO QPM 02/14/20 07/30/23 07/29/23 History mcg (2,000 unit) tablet (Vitamin D3) aspirin 81 mg tablet,delayed 81 mg PO BEDTIME 07/20/20 07/30/23 07/29/23 History release finasteride 5 mg tablet 5 mg PO QPM 07/20/20 07/30/23 07/29/23 History tamsulosin 0.4 mg capsule 0.4 mg PO BID #180 caps 09/27/20 07/30/23 07/30/23 Rx duloxetine 20 mg capsule,delayed 40 mg PO DAILY 09/05/22 07/30/23 07/30/23 History release memantine 5 mg tablet 5 mg PO BID 09/05/22 07/30/23 07/30/23 History semaglutide 0.25 mg or 0.5 mg (2 0.5 mg SUBCUT Q7D 09/05/22 07/30/23 07/24/23 History mg/3 mL) subcutaneous pen injector (Ozempic) albuterol sulfate 90 mcg/actuation 2 inh inhalation Q4H PRN shortness 04/04/23 07/30/23 Unknown Rx aerosol inhaler of breath or wheezing #6.7 grams buspirone 10 mg tablet 5 mg PO TID 04/14/23 07/30/23 07/30/23 History pyridoxine (vitamin B6) 100 mg 100 mg PO QAM 04/14/23 07/30/23 07/30/23 History tablet (Vitamin B-6) vitamin B complex 2 tab PO QAM 04/14/23 07/30/23 07/30/23 History diabetic shoes with 3 inserts #1 ea 05/29/23 07/30/23 Unknown Rx acetaminophen 500 mg tablet 500 mg PO QID PRN Pain 07/09/23 07/30/23 Unknown History carvedilol 3.125 mg tablet 3.125 mg PO BID 07/09/23 07/30/23 07/30/23 History fluoride (sodium) 1.1 % dental 1 applic dental DAILY 07/09/23 07/30/23 07/30/23 History cream (Sodium Fluoride 5000 Plus) furosemide 40 mg tablet 40 mg PO QAM PRN Edema 07/09/23 07/30/23 Unknown History midodrine 10 mg tablet 10 mg PO TID PRN LOW BLOOD 07/09/23 07/30/23 Unknown History omega 9-upr-zoo-fish oil 1,000 mg 1 cap PO BID 07/09/23 07/30/23 07/30/23 History (120 mg-180 mg) capsule (Fish Oil) potassium chloride 20 mEq 20 meq PO DAILY PRN with lasix 07/09/23 07/30/23 07/08/23 History tablet,extended release(part/cryst) insulin glargine 100 unit/mL 20 unit SUBCUT BEDTIME 07/30/23 07/30/23 07/29/23 History subcutaneous solution (Lantus U-100 Insulin) apixaban 5 mg tablet (Eliquis) See Rx Instructions .Route 08/05/23 Unknown Rx .COMPLEX #90 tabs cephalexin 500 mg capsule 500 mg PO BID #10 caps 01/26/25 Unknown Rx diazepam 5 mg tablet (Valium) 5 mg PO BID PRN muscle spasm #6 01/26/25 Unknown Rx tabs tizanidine 2 mg capsule 2 mg PO BID PRN muscle spasticity 01/26/25 Unknown Rx #14 caps Allergies Allergy/AdvReac Type Severity Reaction Status Date / Time lisinopril Allergy ALGY-Rash Verified 01/26/25 02:21 PFSH Acute PFSH: Medical History (Updated 02/22/25 @ 06:03 by Anthony Godoy MD) Dysphagia Chronic combined systolic and diastolic CHF (congestive heart failure) Depression Chronic kidney disease Hyperlipidemia Atrial fibrillation Urgency incontinence Benign prostatic hyperplasia with lower urinary tract symptoms Urolithiasis Carotid bruit Syncope Diabetes mellitus Hypertension CHF (congestive heart failure) CAD (coronary artery disease) This patient had a coronary bypass surgery in 2008 along with a mitral valve repair and a maze procedure, at the [facility] in [place]. Surgical History History of tonsillectomy and adenoidectomy History of loop recorder placed late 2020 or early 2021 H/O carpal tunnel repair bilateral S/P trigger finger release History of maze procedure History of mitral valve replacement with bioprosthetic valve S/P ureteral stent placement Hx of CABG Family History Mother , AT AGE 86 No problems noted. Father , AT AGE 65 Stroke Other Hyperlipidemia Hypertension Social History (Updated 02/22/25 @ 05:56 by Anthony Godoy MD) Smoking and tobacco/nicotine status: former use of tobacco/nicotine Quit status (tobacco/nicotine): has quit using Year quit tobacco: 1969 Alcohol intake: never Substance/Drug Use: never Additional social history: He wants DO NOT RESUSCITATE status. 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 Vitals/I&O/Wt Last Vital Signs Temp 97.6 F 02/21/25 22:16 Pulse 84 02/22/25 04:30 Resp 20 H 02/21/25 22:16 BP 170/80 02/22/25 04:30 Pulse Ox 100 02/22/25 04:30 O2 Del Method Nasal Cannula 02/22/25 04:30 O2 Flow Rate 4 02/22/25 04:30 FiO2 40 02/22/25 01:43 Weight last 48 hrs Weight 90.718 kg Physical Exam Narrative: General well-developed well-nourished overweight male in no acute cardiopulmonary distress current oxygen saturation 100% CV regular rate and rhythm no loud murmurs neck no carotid bruits Oropharynx Mallampati 3 Lungs clear to auscultation bilaterally Abdomen positive bowel tones soft obese nontender Calves trace ankle edema Skin warm and dry Data 02/21/25 22:54 02/21/25 22:54 A&P Assessment and plan 1. Syncope and collapse: This occurred after or during a choking episode with lots of coughing and may have represented vasovagal syndrome. Alternatively it is noted the patient has had multiple falls as well as A-fib. He was seen in the emergency department [address] falls[address] on telemetry and if no definite findings then he will need to have event monitor. Obtain carotid Doppler results from [place] Tizanidine can also be responsible for syncopal falls and will be stopped. 2. Dysphagia: Patient has known dysphagia on modified barium swallow I do not have those results. Chest x-ray shows no infiltrate 3. Atrial fibrillation: Patient is rate controlled currently 4. Chronic combined systolic and diastolic CHF (congestive heart failure): Volume euvolemic currently 5. Chronic kidney disease: Kidney function at baseline 6. History of mitral valve replacement with bioprosthetic valve: Stable 7. Diabetes mellitus: Blood sugar 126 on presentation will start sliding scale insulin low scale 8. CAD (coronary artery disease): Stable with no chest pain 9. Sleep apnea: Continue with BiPAP nightly. 10. Acute and chronic respiratory failure with hypercapnia: Wean oxygen to keep sats at 90% PDMP PDMP Reviewed: Not Reviewed Attestations Medical Necessity Statement*: Patient will be observed in the hospital due to syncope and collapse that was witnessed and expected to require less than 2 midnights Coding Level of Care Code Acute Code for Chg Fwd Diagnoses Syncope and collapse R55 Dysphagia R13.10 Atrial fibrillation I48.91 Chronic combined systolic and diastolic CHF (congestive heart failure) I50.42 Chronic kidney disease N18.9 History of mitral valve replacement with bioprosthetic valve Z95.3 Diabetes mellitus E11.9 CAD (coronary artery disease) I25.10 Sleep apnea G47.30 Acute and chronic respiratory failure with hypercapnia J96.22 Time Spent (min) 56
--- NOTE | 2025-02-22 05:58 | PC.NURSE ---
TRIED TO CALL MED SURG FOR MEDS NOT IN ED MED [facility] DID NOT ANSWER
[2025-02-22] MEDS: APIXABAN 2.5 MG TABLET PO ×2 (06:38→16:24)
--- NOTE | 2025-02-22 07:19 | PC.PHAR ---
[facility] 02/22/25 7:20am
--- NOTE | 2025-02-22 07:23 | USCV_ITS ---
Jose Armendariz Age: 84 Gender: M : 1940 Exam Date: 02/22/2025 13:45 Ordering Phys: Luis Parisi MD Technologist: Exam Location: [facility] [place] Indication: mi BP: 132 / 75 HR: 78 Rhythm: Sinus Technical Quality: Adequate MEASUREMENTS (Male / Female) Normal Values 2D ECHO LV Diastolic Diameter PLAX 4.2 cm 4.2 - 5.9 / 3.9 - 5.3 cm IVS Diastolic Thickness 2.0 cm 0.6 - 1.0 / 0.6 - 0.9 cm IVS Systolic Thickness 1.8 cm LVPW Diastolic Thickness 1.5 cm 0.6 - 1.0 / 0.6 - 0.9 cm LVPW Systolic Thickness 2.4 cm LVOT Diameter 2.1 cm LV Ejection Fraction 2D Teich 55.7 % LV Ejection Fraction MOD 4C 66.3 % LV Ejection Fraction MOD 2C 59.4 % LV Ejection Fraction 2C AL 58.4 % LA Diameter 4.5 cm RA Systolic Volume 4C AL 63.5 ml RA Systolic Volume 4C MOD 60.9 ml Aorta at Sinotubular Diameter 2.8 cm M-MODE LA Ao Ratio MM 1.5 AV Cusp Separation MM 2.8 cm DOPPLER AV Peak Velocity 118.0 cm/s LVOT Peak Velocity 70.0 cm/s AV Area Cont Eq vti 3.1 cm squared AV Area Cont Eq pk 2.0 cm squared MV Peak Velocity 143.0 cm/s MV Area PHT 3.0 cm squared Mitral E to A Ratio 1.9 TV Peak Velocity 168.0 cm/s TR Peak Velocity 176.0 cm/s TR Peak Gradient 12.4 mmHg TV Peak E Velocity 103.0 cm/s PV Peak Velocity 88.0 cm/s FINDINGS Left Ventricle Normal left ventricular size, systolic function and wall thickness, with no regional wall motion abnormalities. Left ventricular ejection fraction is estimated at 55 %. Grade II/IV diastolic dysfunction, moderately elevated filling pressures. Right Ventricle Normal right ventricular size and systolic function. Right Atrium Normal right atrial size. Left Atrium Moderately increased left atrial size. IA Septum Normal appearance of the interatrial septum. Mitral Valve Mildly thickened mitral valve. No mitral valve stenosis. Mild mitral valve regurgitation. Aortic Valve Mild aortic valve calcification. No aortic valve stenosis. Mild aortic valve regurgitation. Tricuspid Valve Normal tricuspid valve structure. No tricuspid valve stenosis or regurgitation. Normal pulmonary pressure. Pulmonic Valve Trace pulmonary valve regurgitation. Pericardium No pericardial effusion. Aorta Normal diameter of the aortic root and ascending thoracic aorta. IVC Inferior vena cava not visualized. CONCLUSIONS Normal left ventricular size, systolic function and wall thickness, with no regional wall motion abnormalities. Left ventricular ejection fraction is estimated at 55 %. Grade II/IV diastolic dysfunction, moderately elevated filling pressures. Moderately increased left atrial size. Mildly thickened mitral valve. No mitral valve stenosis. Mild mitral valve regurgitation. Mild aortic valve calcification. No aortic valve stenosis. Mild aortic valve regurgitation. There is no pericardial effusion. Meenakshi Eden MD (Electronically Signed) Final Date: 22 February 2025 19:39 S
[2025-02-22 07:56] LABS: Glucose Urine UA 3+ (Normal); Nitrate Urine Negative (Negative); Specific Gravity, Urine 1.024 (1.005-1.030)
[2025-02-22 07:58] LABS: Add Urine Microscopic? YES
--- OUTSIDE RECORDS SUMMARY | 2025-02-22 08:11 | XMS_ITS | Encounter Summary ---
Author Organization [facility] Address [address] [place] [address] Care Team Providers Care Metal Baler Name Role Phone Sam Fay MD Primary Care Provider [phone] Encounter Details Date Type Department Care Team (Late st Contact Info) Description 05/03/2007 Outpatient Historical [facility] Primary Care - [address] [place] [phone] Msasimo Piña, DO NO ADDRESS ON FILE Social History Tobacco Use Types Packs/Day Years Used Date Smoking Tobacco: Never Assessed Sex and Gender Information Value Date Recorded Sex Assigned at Not on file Legal Sex Male 8:53 PM CUSTOM MILLER Gender Identity Not on file Sexual Orientation Not on file documented as of this encounter Plan of Treatment Upcoming Encounters Date Type Department Care Team (Late st Contact Info) Description 03/14/2025 11:30 AM CUSTOM MILLER Office Visit [facility] Gastroenterology- [place] [address] [place] [address] Khloe Galvin NP [address] [address] 03/22/2025 11:00 AM CUSTOM MILLER Appointment [facility] MRI [address] [place] [address] Khloe Galvin NP [address] [address] 06/26/2025 2:45 PM CDT Office Visit [facility] [address] [place] [address] Favio Polanco MD [address] [place] [address] documented as of this encounter Visit Diagnoses Not on filedocumented in this encounter Additional Health Concerns Infection Onset Date Last Indicated Resolved Time R/O COVID-19 05/15/2024 05/15/2024 05/15/2024 1:12 PM CDT documented as of this encounter Care Teams Metal Baler Relationship Specialty Start Date End Date Sam Fay MD PCP - General Emergency Medicine 12/22/18 documented as of this encounter
--- OUTSIDE RECORDS SUMMARY | 2025-02-22 08:11 | XMS_ITS | Encounter Summary ---
Author Organization [facility] Address [address] [place] [address] Care Team Providers Care Electrical Maintenance Technician Name Role Phone Sam Fay MD Primary Care Provider [phone] Encounter Details Date Type Department Care Team (Late st Contact Info) Description 06/12/2001 Outpatient Historical [facility] Primary Care - [address] [place] [address] Massimo Piña, DO NO ADDRESS ON FILE Social History Tobacco Use Types Packs/Day Years Used Date Smoking Tobacco: Never Assessed Sex and Gender Information Value Date Recorded Sex Assigned at Not on file Legal Sex Male 8:53 PM FORM BLOCK MAKER Gender Identity Not on file Sexual Orientation Not on file documented as of this encounter Plan of Treatment Upcoming Encounters Date Type Department Care Team (Late st Contact Info) Description 03/14/2025 11:30 AM FORM BLOCK MAKER Office Visit [facility] Gastroenterology- [place] [address] [place] [address] Khloe Galvin NP [address] [address] 03/22/2025 11:00 AM FORM BLOCK MAKER Appointment [facility] MRI [address] [place] [address] Khloe Galvin NP [address] [address] 06/26/2025 2:45 PM CDT Office Visit [facility] [address] [place] [address] Favio Polanco MD [address] [place] [address] documented as of this encounter Visit Diagnoses Not on filedocumented in this encounter Additional Health Concerns Infection Onset Date Last Indicated Resolved Time R/O COVID-19 05/15/2024 05/15/2024 05/15/2024 1:12 PM CDT documented as of this encounter Care Teams Electrical Maintenance Technician Relationship Specialty Start Date End Date Sam Fay MD PCP - General Emergency Medicine 12/22/18 documented as of this encounter
--- OUTSIDE RECORDS SUMMARY | 2025-02-22 08:11 | XMS_ITS | Encounter Summary ---
Author Organization [facility] Address [address] [place] [address] Care Team Providers Care Contracts Director Name Role Phone Sam Fay MD Primary Care Provider [phone] Encounter Details Date Type Department Care Team (Late st Contact Info) Description 03/10/2002 Outpatient Historical [facility] Primary Care - [address] [place] [address] Massimo Piña, DO NO ADDRESS ON FILE Social History Tobacco Use Types Packs/Day Years Used Date Smoking Tobacco: Never Assessed Sex and Gender Information Value Date Recorded Sex Assigned at Not on file Legal Sex Male 8:53 PM CAPACITY PLANNING ENGINEER Gender Identity Not on file Sexual Orientation Not on file documented as of this encounter Plan of Treatment Upcoming Encounters Date Type Department Care Team (Late st Contact Info) Description 03/14/2025 11:30 AM CAPACITY PLANNING ENGINEER Office Visit [facility] Gastroenterology- [place] [address] [place] [address] Khloe Galvin NP [address] [address] 03/22/2025 11:00 AM CAPACITY PLANNING ENGINEER Appointment [facility] MRI [address] [place] [address] Khloe Galvin NP [address] [address] 06/26/2025 2:45 PM CDT Office Visit [facility] [address] [place] [address] Favio Polanco MD [address] [place] [address] documented as of this encounter Visit Diagnoses Not on filedocumented in this encounter Additional Health Concerns Infection Onset Date Last Indicated Resolved Time R/O COVID-19 05/15/2024 05/15/2024 05/15/2024 1:12 PM CDT documented as of this encounter Care Teams Contracts Director Relationship Specialty Start Date End Date Sam Fay MD PCP - General Emergency Medicine 12/22/18 documented as of this encounter
--- OUTSIDE RECORDS SUMMARY | 2025-02-22 08:11 | XMS_ITS | Encounter Summary ---
Author Organization [facility] Address [address] [place] [address] Care Team Providers Care Air Conditioning Technician Name Role Phone Sam Fay MD Primary Care Provider [phone] Encounter Details Date Type Department Care Team (Late st Contact Info) Description 08/13/2004 Outpatient Historical [facility] Primary Care - [address] [place] [address] Massimo Piña, DO NO ADDRESS ON FILE Social History Tobacco Use Types Packs/Day Years Used Date Smoking Tobacco: Never Assessed Sex and Gender Information Value Date Recorded Sex Assigned at Not on file Legal Sex Male 8:53 PM BOW STRING MAKER Gender Identity Not on file Sexual Orientation Not on file documented as of this encounter Plan of Treatment Upcoming Encounters Date Type Department Care Team (Late st Contact Info) Description 03/14/2025 11:30 AM BOW STRING MAKER Office Visit [facility] Gastroenterology- [place] [address] [place] [address] Khloe Galvin NP [address] [address] 03/22/2025 11:00 AM BOW STRING MAKER Appointment [facility] MRI [address] [place] [address] Khloe Galvin NP [address] [address] 06/26/2025 2:45 PM CDT Office Visit [facility] [address] [place] [address] Favio Polanco MD [address] [place] [address] documented as of this encounter Visit Diagnoses Not on filedocumented in this encounter Additional Health Concerns Infection Onset Date Last Indicated Resolved Time R/O COVID-19 05/15/2024 05/15/2024 05/15/2024 1:12 PM CDT documented as of this encounter Care Teams Air Conditioning Technician Relationship Specialty Start Date End Date Sam Fay MD PCP - General Emergency Medicine 12/22/18 documented as of this encounter
--- OUTSIDE RECORDS SUMMARY | 2025-02-22 08:11 | XMS_ITS | Encounter Summary ---
Author Organization [facility] Address [address] [place] [address] Care Team Providers Care Watch Repairer Name Role Phone Sam Fay MD Primary Care Provider [phone] Encounter Details Date Type Department Care Team (Late st Contact Info) Description 08/06/[address] [facility] Primary Care - [address] [place] [address] Massimo Piña, DO NO ADDRESS ON FILE Social History Tobacco Use Types Packs/Day Years Used Date Smoking Tobacco: Never Assessed Sex and Gender Information Value Date Recorded Sex Assigned at Not on file Legal Sex Male 8:53 PM INFRASTRUCTURE TECHNICIAN Gender Identity Not on file Sexual Orientation Not on file documented as of this encounter Plan of Treatment Upcoming Encounters Date Type Department Care Team (Late st Contact Info) Description 03/14/2025 11:30 AM INFRASTRUCTURE TECHNICIAN Office Visit [facility] Gastroenterology- [place] [address] [place] [address] Khloe Galivn NP [address] [address] 03/22/2025 11:00 AM INFRASTRUCTURE TECHNICIAN Appointment [facility] MRI [address] [place] [address] Khloe Galvin NP [address] [address] 06/26/2025 2:45 PM CDT Office Visit [facility] [address] [place] [address] Favio Polanco MD [address] [place] [address] documented as of this encounter Visit Diagnoses Not on filedocumented in this encounter Additional Health Concerns Infection Onset Date Last Indicated Resolved Time R/O COVID-19 05/15/2024 05/15/2024 05/15/2024 1:12 PM CDT documented as of this encounter Care Teams Watch Repairer Relationship Specialty Start Date End Date Sam Fay MD PCP - General Emergency Medicine 12/22/18 documented as of this encounter
--- OUTSIDE RECORDS SUMMARY | 2025-02-22 08:11 | XMS_ITS | Clinical Summary ---
Author Organization [facility] Address [address] [address] Care Team Providers Care Hand Brim Ironer Name Role Phone Sam Fay MD Primary [...] 09/27/2015 INFLUENZA VACCINE (#1) 2024 Care Teams Hand Brim Ironer Relationship Specialty Start Date End Date Sam Fay MD PCP - General Emergency Medicine 12/22/18
--- OUTSIDE RECORDS SUMMARY | 2025-02-22 08:11 | XMS_ITS | Encounter Summary ---
Author Organization [facility] Address [address] [place] [address] Care Team Providers Care Experimental Technician Name Role Phone Sam Fay MD Primary Care Provider [phone] Reason for Referral * Speech Therapy (Routine) - Open Specialty Diagnoses / Procedures Referred By Dg mai Referred To Contact Speech Therapy Diagnoses Odynophagia Dysphagia, unspecified type Khloe Galvin NP [address] [facility] [address] [place] [address] Phone: tel: fax: Referral ID Status Reason Start Date Expiration Date Visits Requested Visits Authorized [id number] Open Ordering Department To Schedule 02/17/2025 02/17/2026 1 1 LTC Reason for Visit * Reason Onset Date Comments referral faxed 02/17/2025 Encounter Details Date Type Department Care Team (Late st Contact Info) Description 02/17/2025 Telephone [facility] Gastroenterology- [place] [address] [place] [address] Khloe Galvin NP [address] [facility] [address] [place] [address] referral faxed Social History Tobacco [...] on file Legal Sex Male 8:53 PM CNA LTC Gender Identity Not on file Sexual Orientation Not on file documented as of this encounter Miscellaneous Notes * Telephone Encounter - Kinjal Zazueta RN - 02/17/2025 8:49 AM CST ----- Message from Khloe Galvin sent at 02/16/2025 4:56 PM CNA LTC ----- Please fax order for therapy to [place]. ----- Message ----- From: Martha Baca SLP Sent: 02/16/2025 10:28 AM CNA LTC To: STEPHON Rooney, I saw Jose for an MBS yesterday and am recommending therapy. They have requested to complete therapy at [facility] in [place]. Could someone from your office fax a referral to them? Their fax number is [phone]. It will befor dysphagia therapy. Thank you in advance for your help, Martha Baca MA CCC-MANAGER DESKTOP [facility] Outpatient Neuro Therapy Services Direct Office Line: LTC documented in this encounter Plan of Treatment Upcoming Encounters Date Type Department Care Team (Late st Contact Info) Description 03/14/2025 11:30 AM CNA LTC Office Visit [facility] Gastroenterology- [place] [address] [address] Khloe Galvin NP [address] [facility] [address] [place] [address] 03/22/2025 11:00 AM CNA LTC Appointment [facility] [address] [place] [address] Khloe Galvin, COMBER SETTER [address] [facility] [address] [place] [address] 06/26/2025 2:45 PM CDT Office Visit [facility] [address] [facility] [address] [place] [address] Favio Polanco MD [address] [facility] [address] [place] [address] Scheduled Referrals Name Type Priority Associated Diagnoses Orde r Schedule AMB REFERRAL TO SPEECH THERAPY Outpatient Referral Routine Odynophagia Dysphagia, unspecified type Ordered: 02/17/2025 documented as of this encounter Visit Diagnoses Diagnosis Odynophagia- Primary Dysphagia, unspecified Dysphagia, unspecified type documented in this encounter Care Teams Experimental Technician Relationship Specialty Start Date End Date Sam Fay MD PCP - General Emergency Medicine 12/22/18 documented as of this encounter
--- OUTSIDE RECORDS SUMMARY | 2025-02-22 08:11 | XMS_ITS | Encounter Summary ---
Author Organization [facility] Address [address] [place] [address] Care Team Providers Care Bass String Winder Name Role Phone Sam Fay MD Primary Care Provider [phone] Encounter Details Date Type Department Care Team (Late st Contact Info) Description 12/02/2001 Outpatient Historical [facility] Primary Care - [address] [place] [address] Massimo Piña, DO NO ADDRESS ON FILE Social History Tobacco Use Types Packs/Day Years Used Date Smoking Tobacco: Never Assessed Sex and Gender Information Value Date Recorded Sex Assigned at Not on file Legal Sex Male 8:53 PM SUPERVISOR RECORDS CHANGE Gender Identity Not on file Sexual Orientation Not on file documented as of this encounter Plan of Treatment Upcoming Encounters Date Type Department Care Team (Late st Contact Info) Description 03/14/2025 11:30 AM SUPERVISOR RECORDS CHANGE Office Visit [facility] Gastroenterology- [place] [address] [place] [address] Khloe Galvin NP [address] [address] 03/22/2025 11:00 AM SUPERVISOR RECORDS CHANGE Appointment [facility] MRI [address] [place] [address] Khloe Galvin NP [address] [address] 06/26/2025 2:45 PM CDT Office Visit [facility] [address] [place] [address] Favio Polanco MD [address] [place] [address] documented as of this encounter Visit Diagnoses Not on filedocumented in this encounter Additional Health Concerns Infection Onset Date Last Indicated Resolved Time R/O COVID-19 05/15/2024 05/15/2024 05/15/2024 1:12 PM CDT documented as of this encounter Care Teams Bass String Winder Relationship Specialty Start Date End Date Sam Fay MD PCP - General Emergency Medicine 12/22/18 documented as of this encounter
--- OUTSIDE RECORDS SUMMARY | 2025-02-22 08:12 | XMS_ITS | Encounter Summary ---
Author Organization [facility] Address [address] [place] [address] Care Team Providers Care Guest Relations Coordinator Name Role Phone Sam Fay MD Primary Care Provider [phone] Encounter Details Date Type Department Care Team (Late st Contact Info) Description 01/09/2000 Outpatient Historical [facility] Primary Care - [address] [place] [address] Massimo Piña, DO NO ADDRESS ON FILE Social History Tobacco Use Types Packs/Day Years Used Date Smoking Tobacco: Never Assessed Sex and Gender Information Value Date Recorded Sex Assigned at Not on file Legal Sex Male 8:53 PM BENEFITS CLERK Gender Identity Not on file Sexual Orientation Not on file documented as of this encounter Plan of Treatment Upcoming Encounters Date Type Department Care Team (Late st Contact Info) Description 03/14/2025 11:30 AM BENEFITS CLERK Office Visit [facility] Gastroenterology- [place] [address] [place] [address] Khloe Galvin NP [address] [address] 03/22/2025 11:00 AM BENEFITS CLERK Appointment [facility] MRI [address] [place] [address] Khloe Galvin NP [address] [address] 06/26/2025 2:45 PM CDT Office Visit [facility] [address] [place] [address] Favio Ploanco MD [address] [place] [address] documented as of this encounter Visit Diagnoses Not on filedocumented in this encounter Additional Health Concerns Infection Onset Date Last Indicated Resolved Time R/O COVID-19 05/15/2024 05/15/2024 05/15/2024 1:12 PM CDT documented as of this encounter Care Teams Guest Relations Coordinator Relationship Specialty Start Date End Date Sam Fay MD PCP - General Emergency Medicine 12/22/18 documented as of this encounter
--- OUTSIDE RECORDS SUMMARY | 2025-02-22 08:12 | XMS_ITS | Encounter Summary ---
Author Organization [facility] Address [address] [place] [address] Care Team Providers Care Service Person Name Role Phone Sam Fay MD Primary Care Provider [phone] Encounter Details Date Type Department Care Team (Late st Contact Info) Description 10/11/1998 Outpatient Historical [facility] Primary Care - [address] [place] [address] Massimo Piña, DO NO ADDRESS ON FILE Social History Tobacco Use Types Packs/Day Years Used Date Smoking Tobacco: Never Assessed Sex and Gender Information Value Date Recorded Sex Assigned at Not on file Legal Sex Male 8:53 PM MID WIFE Gender Identity Not on file Sexual Orientation Not on file documented as of this encounter Plan of Treatment Upcoming Encounters Date Type Department Care Team (Late st Contact Info) Description 03/14/2025 11:30 AM MID WIFE Office Visit [facility] Gastroenterology- [place] [address] [place] [address] Khloe Galvin NP [address] [address] 03/22/2025 11:00 AM MID WIFE Appointment [facility] MRI [address] [place] [address] Khloe Galvin NP [address] [address] 06/26/2025 2:45 PM CDT Office Visit [facility] [address] [place] [address] Favio Polanco MD [address] [place] [address] documented as of this encounter Visit Diagnoses Not on filedocumented in this encounter Additional Health Concerns Infection Onset Date Last Indicated Resolved Time R/O COVID-19 05/15/2024 05/15/2024 05/15/2024 1:12 PM CDT documented as of this encounter Care Teams Service Person Relationship Specialty Start Date End Date Sam Fay MD PCP - General Emergency Medicine 12/22/18 documented as of this encounter
--- OUTSIDE RECORDS SUMMARY | 2025-02-22 08:12 | XMS_ITS | Encounter Summary ---
Author Organization [facility] Address [address] [place] [address] Care Team Providers Care Assembler Motor Vehicle Name Role Phone Sam Fay MD Primary Care Provider + [phone] Encounter Details Date Type Department Care Team (Late st Contact Info) Description 12/07/2007 Outpatient Historical [facility] WangMassimo remy DO NO ADDRESS ON FILE Cough Social History Tobacco Use Types Packs/Day Years Used Date Smoking Tobacco: Never Assessed Sex and Gender Information Value Date Recorded Sex Assigned at Not on file Legal Sex Male 8:53 PM HOOK UP DRIVER Gender Identity Not on file Sexual Orientation Not on file documented as of this encounter Plan of Treatment Upcoming Encounters Date Type Department Care Team (Late st Contact Info) Description 03/14/2025 11:30 AM HOOK UP DRIVER Office Visit [facility] Gastroenterology- [place] [address] [facility] [address] [place] [address] Khloe Galvin, BAR SUPERVISOR [address] [place] [address] 03/22/2025 11:00 AM HOOK UP DRIVER Appointment [facility] MRI [address] [place] [address] hKloe Galvin, BAR SUPERVISOR [address] [address] 06/26/2025 2:45 PM CDT Office Visit [facility] [address] [facility] [address] [place] [address] Favio Polanco MD [address] [place] [address] documented as of this encounter Procedures Procedure Name Priority Date/Time Associated Diagnosis Comments XR CHEST PA AND LATERAL 2 VW Routine 12/07/2007 10:52 AM CDT documented in this encounter Results * XR CHEST PA AND LATERAL (12/07/2007 10:52 AM CDT) Anatomical Region Laterality Modality Chest Other 12/07/2007 10:5 2 AM CDT Narrative 12/07/2007 11:42 AM CDT [address] [place], [place] [address] Admit Date: 12/07/2007 ESEQUIEL ARMENDARIZ Sex: M Admit Prov: MASSIMO FRIAS Date: 1940 Primary Care Prov: MASSIMO FRIAS CMRN: [id number] Room: [facility] SSN: [address] [place] [address] IMAGING SERVICES Ordering Prov: N/A Accession Number: [id number] Interpretation CHEST 2 VIEWS, 12/07/2007 Clinical History: [...] by: ALINA ALONSO12/07/2007 11:41 Transcribed: 12/07/2007 10:58 [facility] Procedure Note Alina Alonso MD - 12/07/2007 [address] [address] [place], [place] [address] Admit Date: 12/07/2007 ESEQUIEL ARMENDARIZ Sex: M Admit Prov: MASSIMO FRIAS Date: 1940 Primary Care Prov: MASSIMO FRIAS CMRN: [id number] Room: [facility] SSN: [id number] IMAGING SERVICES Ordering Prov: N/A Interpretation CHEST [...] documented as of this encounter Care Teams Assembler Motor Vehicle Relationship Specialty Start Date End Date Sam Fay MD PCP - General Emergency Medicine 12/22/18 documented as of this encounter
--- OUTSIDE RECORDS SUMMARY | 2025-02-22 08:12 | XMS_ITS | Encounter Summary ---
Author Organization [facility] Address [address] [place] [address] Care Team Providers Care Block Out Machine Operator Name Role Phone Sam Fay MD Primary Care Provider [phone] Encounter Details Date Type Department Care Team (Late st Contact Info) Description 01/23/2000 Outpatient Historical [facility] Primary Care - [address] [place] [address] Massimo Piña, DO NO ADDRESS ON FILE Social History Tobacco Use Types Packs/Day Years Used Date Smoking Tobacco: Never Assessed Sex and Gender Information Value Date Recorded Sex Assigned at Not on file Legal Sex Male 8:53 PM DISTRICT GAUGER Gender Identity Not on file Sexual Orientation Not on file documented as of this encounter Plan of Treatment Upcoming Encounters Date Type Department Care Team (Late st Contact Info) Description 03/14/2025 11:30 AM DISTRICT GAUGER Office Visit [facility] Gastroenterology- [place] [address] [place] [address] Khloe Galvin NP [address] [address] 03/22/2025 11:00 AM DISTRICT GAUGER Appointment [facility] MRI [address] [place] [address] Khloe Galvin NP [address] [address] 06/26/2025 2:45 PM CDT Office Visit [facility] [address] [place] [address] Favio Polanco MD [address] [place] [address] documented as of this encounter Visit Diagnoses Not on filedocumented in this encounter Additional Health Concerns Infection Onset Date Last Indicated Resolved Time R/O COVID-19 05/15/2024 05/15/2024 05/15/2024 1:12 PM CDT documented as of this encounter Care Teams Block Out Machine Operator Relationship Specialty Start Date End Date Sam Fay MD PCP - General Emergency Medicine 12/22/18 documented as of this encounter
--- OUTSIDE RECORDS SUMMARY | 2025-02-22 08:12 | XMS_ITS | Encounter Summary ---
Author Organization [facility] Address [address] [place] [address] Care Team Providers Care Eyeglass Frames Inspector Name Role Phone Sam Fay MD Primary Care Provider [phone] Encounter Details Date Type Department Care Team (Late st Contact Info) Description 05/03/2007 Outpatient Historical [facility] Primary Care - [address] [phone] Massimo Piña, DO NO ADDRESS ON FILE Social History Tobacco Use Types Packs/Day Years Used Date Smoking Tobacco: Never Assessed Sex and Gender Information Value Date Recorded Sex Assigned at Not on file Legal Sex Male 8:53 PM FURNITURE SALESPERSON Gender Identity Not on file Sexual Orientation Not on file documented as of this encounter Plan of Treatment Upcoming Encounters Date Type Department Care Team (Late st Contact Info) Description 03/14/2025 11:30 AM FURNITURE SALESPERSON Office Visit [facility] Gastroenterology- [place] [address] [place] [address] Khloe Galvin NP [address] [address] 03/22/2025 11:00 AM FURNITURE SALESPERSON Appointment [facility] MRI [address] [place] [address] Khloe Galvin NP [address] [address] 06/26/2025 2:45 PM CDT Office Visit [facility] [address] [place] [address] Favio Polanco MD [address] [place] [address] documented as of this encounter Visit Diagnoses Not on filedocumented in this encounter Additional Health Concerns Infection Onset Date Last Indicated Resolved Time R/O COVID-19 05/15/2024 05/15/2024 05/15/2024 1:12 PM CDT documented as of this encounter Care Teams Eyeglass Frames Inspector Relationship Specialty Start Date End Date Sam Fay MD PCP - General Emergency Medicine 12/22/18 documented as of this encounter
--- OUTSIDE RECORDS SUMMARY | 2025-02-22 08:12 | XMS_ITS | Encounter Summary ---
Author Organization [facility] Address [address] [place] [address] Care Team Providers Care Band Sawyer Name Role Phone Sam Fay MD Primary Care Provider [phone] Encounter Details Date Type Department Care Team (Late st Contact Info) Description 02/03/2000 Outpatient Historical [facility] Primary Care - [address] [place] [phone] Massimo Piña, DO NO ADDRESS ON FILE Social History Tobacco Use Types Packs/Day Years Used Date Smoking Tobacco: Never Assessed Sex and Gender Information Value Date Recorded Sex Assigned at Not on file Legal Sex Male 8:53 PM PROTECTION ENGINEER Gender Identity Not on file Sexual Orientation Not on file documented as of this encounter Plan of Treatment Upcoming Encounters Date Type Department Care Team (Late st Contact Info) Description 03/14/2025 11:30 AM PROTECTION ENGINEER Office Visit [facility] Gastroenterology- [place] [address] [place] [address] Khloe Galvin NP [address] [address] 03/22/2025 11:00 AM PROTECTION ENGINEER [facility]ointment [facility] MRI [address] [place] [address] Khloe Galvin NP [address] [address] 06/26/2025 2:45 PM CDT Office Visit [facility] [address] [place] [address] Favio Polanco MD [address] [place] [address] documented as of this encounter Visit Diagnoses Not on filedocumented in this encounter Additional Health Concerns Infection Onset Date Last Indicated Resolved Time R/O COVID-19 05/15/2024 05/15/2024 05/15/2024 1:12 PM CDT documented as of this encounter Care Teams Band Sawyer Relationship Specialty Start Date End Date Sam Fay MD PCP - General Emergency Medicine 12/22/18 documented as of this encounter
--- OUTSIDE RECORDS SUMMARY | 2025-02-22 08:12 | XMS_ITS | Encounter Summary ---
Author Organization [facility] Address [address] [place] [address] Care Team Providers Care Electrical Electronics Technician Name Role Phone Sam Fay MD Primary Care Provider [phone] Encounter Details Date Type Department Care Team (Late st Contact Info) Description 01/16/1998 Outpatient Historical [facility] Primary Care - [address] [place] [address] Massimo Piña, DO NO ADDRESS ON FILE Social History Tobacco Use Types Packs/Day Years Used Date Smoking Tobacco: Never Assessed Sex and Gender Information Value Date Recorded Sex Assigned at Not on file Legal Sex Male 8:53 PM PULLING UNIT FLOORHAND Gender Identity Not on file Sexual Orientation Not on file documented as of this encounter Plan of Treatment Upcoming Encounters Date Type Department Care Team (Late st Contact Info) Description 03/14/2025 11:30 AM PULLING UNIT FLOORHAND Office Visit [facility] Gastroenterology- [place] [address] [place] [address] Khloe Galvin NP [address] [address] 03/22/2025 11:00 AM PULLING UNIT FLOORHAND Appointment [facility] MRI [address] [place] [address] Khloe Galvin NP [address] [address] 06/26/2025 2:45 PM CDT Office Visit [facility] [address] [place] [address] Favio Polanco MD [address] [place] [address] documented as of this encounter Visit Diagnoses Not on filedocumented in this encounter Additional Health Concerns Infection Onset Date Last Indicated Resolved Time R/O COVID-19 05/15/2024 05/15/2024 05/15/2024 1:12 PM CDT documented as of this encounter Care Teams Electrical Electronics Technician Relationship Specialty Start Date End Date Sam Fay MD PCP - General Emergency Medicine 12/22/18 documented as of this encounter
--- OUTSIDE RECORDS SUMMARY | 2025-02-22 08:12 | XMS_ITS | Encounter Summary ---
Author Organization [facility] Address [address] [place] [address] Care Team Providers Care Lawn Mower Sharpener Name Role Phone Sam Fay MD Primary Care Provider [phone] Encounter Details Date Type Department Care Team (Late st Contact Info) Description 12/26/1999 Outpatient Historical [facility] Primary Care - [address] [place] [address] Massimo Piña, DO NO ADDRESS ON FILE Social History Tobacco Use Types Packs/Day Years Used Date Smoking Tobacco: Never Assessed Sex and Gender Information Value Date Recorded Sex Assigned at Not on file Legal Sex Male 8:53 PM ROOF BOLTING COAL MINER Gender Identity Not on file Sexual Orientation Not on file documented as of this encounter Plan of Treatment Upcoming Encounters Date Type Department Care Team (Late st Contact Info) Description 03/14/2025 11:30 AM ROOF BOLTING COAL MINER Office Visit [facility] Gastroenterology- [place] [address] [place] [address] Khloe Galvin NP [address] [address] 03/22/2025 11:00 AM ROOF BOLTING COAL MINER Appointment [facility] MRI [address] [place] [address] Khloe Galvin NP [address] [address] 06/26/2025 2:45 PM CDT Office Visit [facility] [address] [place] [address] Favio Polanco MD [address] [place] [address] documented as of this encounter Visit Diagnoses Not on filedocumented in this encounter Additional Health Concerns Infection Onset Date Last Indicated Resolved Time R/O COVID-19 05/15/2024 05/15/2024 05/15/2024 1:12 PM CDT documented as of this encounter Care Teams Lawn Mower Sharpener Relationship Specialty Start Date End Date Sam Fay MD PCP - General Emergency Medicine 12/22/18 documented as of this encounter
--- OUTSIDE RECORDS SUMMARY | 2025-02-22 08:12 | XMS_ITS | Encounter Summary ---
Author Organization [facility] Address [address] [place] [address] Care Team Providers Care Handle Maker Name Role Phone Sam Fay MD Primary Care Provider [phone] Encounter Details Date Type Department Care Team (Late st Contact Info) Description 01/15/1999 Outpatient Historical [facility] Primary Care - [address] [place] [address] Massimo Piña, DO NO ADDRESS ON FILE Social History Tobacco Use Types Packs/Day Years Used Date Smoking Tobacco: Never Assessed Sex and Gender Information Value Date Recorded Sex Assigned at Not on file Legal Sex Male 8:53 PM CUTTING MACHINE OPERATOR Gender Identity Not on file Sexual Orientation Not on file documented as of this encounter Plan of Treatment Upcoming Encounters Date Type Department Care Team (Late st Contact Info) Description 03/14/2025 11:30 AM CUTTING MACHINE OPERATOR Office Visit [facility] Gastroenterology- [place] [address] [place] [address] Khloe Galvin NP [address] [address] 03/22/2025 11:00 AM CUTTING MACHINE OPERATOR Appointment [facility] MRI [address] [place] [address] Khloe Galvin NP [address] [address] 06/26/2025 2:45 PM CDT Office Visit [facility] [address] [place] [address] Favio Polanco MD [address] [place] [address] documented as of this encounter Visit Diagnoses Not on filedocumented in this encounter Additional Health Concerns Infection Onset Date Last Indicated Resolved Time R/O COVID-19 05/15/2024 05/15/2024 05/15/2024 1:12 PM CDT documented as of this encounter Care Teams Handle Maker Relationship Specialty Start Date End Date Sam Fay MD PCP - General Emergency Medicine 12/22/18 documented as of this encounter
--- OUTSIDE RECORDS SUMMARY | 2025-02-22 08:12 | XMS_ITS | Clinical Summary ---
Author Organization [employer] [facility] Address [address] [place] [address] Dr MayerISIDRA [address] Phone Care Team Providers Care Tension Machine Operator Name Role Phone Sam Fay MD Primary Care Provider [phone] [phone] Allergies Active Allergy Reactions Criticality Noted Date [...] Type Department Care Team Description 02/17/2025 Telephone [facility] Gastroenterology- [place] [address] [place] [address] Khloe Galvin NP referral faxed 02/15/2025 9:00 AM LOCK FITTER - 02/15/2025 11:59 PM LOCK FITTER Hospital Encounter [facility] Services [address] [place] [address] Khloe Galvin NP Discharge Disposition: Home or Self Care 01/24/2025 External Device Data STL ABSTRACTION Provider, Abstract 12/27/2024 External Device Data STL ABSTRACTION Provider, Abstract 12/20/2024 External Device Data STL ABSTRACTION Provider, Abstract 12/01/2024 8:30 AM CDT Office Visit [address] [address] Khloe Galvin NP Pancreatic lesion (Primary Dx); Diverticulitis; Abnormal CT scan, gastrointestinal tract; Constipation, unspecified constipation type; Odynophagia; History of Marcelo esophagus 11/24/2024 Orders Only [facility] Gastroenterology[address] [address] Lena Orellana MD Disease of pancreas (Primary [...] on file Legal Sex Male 8:53 PM LOCK FITTER Gender Identity Not on file Sexual Orientation [...] st Contact Info) Description 03/14/2025 11:30 AM LOCK FITTER Office Visit [facility] Gastroenterology- [place] [address] [facility] [address] [place] [address] Khloe Galvin NP [address] [address] 03/22/2025 11:00 AM LOCK FITTER Appointment [facility] MRI [address] [place] [address] Khloe Galvin NP [address] [address] 06/26/2025 2:45 PM CDT Office Visit [facility] [address] [facility] [address] [place] [address] Favio Polanco MD [address] [facility] [address] [place] [address] Health Maintenance Due Date Last [...] SWALLOW W SPEECH Routine 02/15/2025 9:37 AM LOCK FITTER Odynophagia History of Marcelo esophagus CANCER ANTIGEN [...] VIDEO SWALLOW W SPEECH (02/15/2025 9:37 AM LOCK FITTER) Anatomical Region Laterality Modality Chest Computed Radiogr aphy 02/15/2025 9:41 AM LOCK FITTER Impressions 02/15/2025 9:56 AM LOCK FITTER IMPRESSION: Please see below. Exam: XR VIDEO [...] AM CDT) CA 19-9 30 <34 U/mL [facility] Comment: This test was performed using the Siemens chemiluminescent method. Values obtained from different assay methods cannot be used interchangeably. CA 19-9 levels, regardless of value, should not be interpreted as absolute evidence of the presence or absence of disease. FASTING:YES FASTING: YES Test Performed at: [facility] [address] [place] [address] Carmen Lake MD Blood 12/01/2024 10:2 0 AM CDT 12/01/2024 10:20 AM CDT Khloe L Galvin REFUELING RAMP SUPERVISOR CHEMISTRY ORDERABLES Final R esult [facility] [phone] [facility] [address] [place] [address] * CBC WITH DIFFERENTIAL (12/01/2024 10:20 AM CDT) WBC 9.6 3.8 - 10.8 Thousand/u L [facility] RBC 4.89 4.20 - 5.80 Million/uL [facility] HEMOGLOBIN 14.8 13.2 - 17.1 g/dL [facility] [place] [facility] RR HEMATOCRIT 45.4 38.5 - 50.0 % [facility] [place] [facility] RR MCV 92.8 80.0 - 100.0 fL [facility] [place] [facility] RR MCH 30.3 27.0 - 33.0 pg [facility] [place] [facility] RR MCHC 32.6 32.0 - 36.0 g/dL [facility] [place] [facility] RRL Comment: For adults, a slight decrease in the calculated MCHC value (in the range of 30 to 32 g/dL) is most likely not clinically significant; however, it should be interpreted with caution in correlation with other red cell parameters and the patient's clinical condition. RDW 14.2 11.0 - 15.0 % [facility] [place] [facility] RR PLATELETS 194 140 - 400 Thousand/u L [facility] MPV 9.1 7.5 - 12.5 fL [facility] [place] [facility] RR NEUTROPHIL ABSOLUTE 6,989 1,500 - 7,800 cells/uL [facility] [place] [facility] RRL LYMPHOCYTE ABSOLUTE 1,718 850 - 3,900 cells/uL [facility] [place] [facility] MONOCYTE ABSOLUTE 653 200 - 950 cells/uL [facility] [place] [facility] EOSINOPHIL ABSOLUTE 182 15 - 500 cells/uL [facility] [place] [facility] RRL BASOPHILS ABSOLUTE 58 0 - 200 cells/uL [facility] [place] [facility] RRL NEUTROPHIL 72.8 % [facility] [place] [facility] RRL LYMPHOCYTES 17.9 % [facility] [place] [facility] RRL MONOCYTE 6.8 % [facility] [place] [facility] RRL EOSINOPHILS 1.9 % [facility] [place] [facility] RRL BASOPHILS 0.6 % [facility] [place] [facility] RRL Comment: FASTING:YES FASTING: YES Test Performed at: [facility] [address] [place] [address] Bebeto Bauer Blood 12/01/2024 10:2 0 AM CDT 12/01/2024 10:20 AM CDT Khloe Johnson Glenis SZYMANSKI HEMATOLOGY ORDERABLES Final Result [facility] [phone] [facility] RRL [address] [place] [address] * (ABNORMAL) COMPREHENSIVE METABOLIC PANEL (12/01/2024 10:20 AM CDT) GLUCOSE 208(H) 65 - 99 mg/dL [facility] RR Comment: Fasting reference interval For someone without known diabetes, a glucose value >125 mg/dL indicates that they may have diabetes and this should be confirmed with a follow-up test. BUN 41(H) 7 - 25 mg/dL [facility] RRL CREATININE 1.68(H) 0.70 - 1.22 mg/dL [facility] RRL GFR 40(L) > OR = 60 mL/min/1.7 3m2 [facility] BUN/CREAT RATIO 24(H) 6 - 22 (calc) [facility] RRL SODIUM 139 135 - 146 mmol/L [facility] RRL POTASSIUM 5.2 3.5 - 5.3 mmol/L [facility] CHLORIDE 104 98 - 110 mmol/L [facility] RRL CO2 31 20 - 32 mmol/L [facility] RRL CALCIUM 10.3 8.6 - 10.3 mg/dL [facility] R[facility] TOTAL PROTEIN 6.8 6.1 - 8.1 g/dL [facility] RRL ALBUMIN 4.1 3.6 - 5.1 g/dL [facility] RRL GLOBULIN 2.7 1.9 - 3.7 g/dL (calc) [facility] RRL ALBUMIN/GLOBULIN RATIO 1.5 1.0 - 2.5 (calc) [facility] R[facility] BILIRUBIN TOTAL 0.7 0.2 - 1.2 mg/dL [facility] ALKALINE PHOSPHATASE 105 35 - 144 U/L [facility] AST 12 10 - 35 U/L [facility] RRL ALT 14 9 - 46 U/L [facility] RRL Comment: FASTING:YES FASTING: YES Test Performed at: [facility] RR [address] [place] [address] Bebeto Bauer Blood 12/01/2024 10:2 0 AM CDT 12/01/2024 10:20 AM CDT us Khloe Galvin NP CHEMISTRY ORDERABLES Final R esult [facility] [phone] [facility] [address] [place] [address] * (ABNORMAL) LIPID RFLX (05/15/2024 12:40 PM CDT) CHOLESTEROL 99 <200 mg/dL 05/15/2024 6:06 PM CDT [facility] TRIGLYCERIDE 92 <150 mg/dL 05/15/2024 6:06 PM CDT [facility] HDL 31(L) 40 - 59 mg/dL 05/15/2024 6:06 PM CDT [facility] LDL CALCULATED 50 <100 mg/dL 05/15/2024 6:06 PM CDT [facility] NON-HDL CHOLESTEROL 68 <130 mg/dL 05/15/2024 6:06 PM CDT [facility] Blood Venipuncture / Unknown 05/15/2024 12:40 PM CDT 05/15/2024 1:31 PM CDT Narrative [facility] - 05/15/2024 6:06 PM CDT TOTAL CHOLESTEROL [...] Final Re sult Performing Organization Address [facility] de Phone Number [facility] SERVICES [facility] CLIA # [id number] [address] [place] [address] * (ABNORMAL) HEMOGLOBIN A1C (05/15/2024 12:40 PM CDT) HEMOGLOBIN A1C 7.6(H) <=5.6 % 05/15/2024 1:43 PM CDT [facility] EST. AVG GLUCOSE, A1C 171 mg/dL 05/15/2024 1:43 PM CDT [facility] Blood Venipuncture / Unknown 05/15/2024 12:40 PM CDT 05/15/2024 12:49 PM CDT [facility] - 05/15/2024 1:43 PM CDT HGB A1C INTERPRETATION NORMAL: <5.7% PRE-DIABETES: 5.7 - 6.4% DIABETES: 6.5% OR GREATER Jannet Mckoy MD CHEMISTRY ORDERABLES Final Re sult Performing Organization Address [facility] Co de Phone Number [facility] CLIA # [id number] [address] [address] from Last 3 Months or Most Recently Relevant to Health Maintenance Insurance [employer] HMO OPEN ACCESS MEDICARE PART A AND B RX [employer] Medicare Part D [facility] [employer] * Guarantor: [employer] [facility] D (C) Account Type Relation to Patient Date of Phone Billing Address Corporate Other DEFAULT ADDRESS [address] [employer] * Guarantor: FRANCIS [facility] [employer] (C) Account Type Relation to Patient Date of Phone Billing Address Corporate Other DEFAULT ADDRESS [address] [employer] Advance Directives For more information, please contact: [phone] * Full Code (Latest Code Status on File) Date Activated Date Inactivated Comments 09/05/2024 2:40 PM 09/12/2024 3:00 PM Care Teams Tension Machine Operator Relationship Specialty Start Date End Date Sam Fay MD PCP - General Emergency Medicine 12/22/18
--- OUTSIDE RECORDS SUMMARY | 2025-02-22 08:12 | XMS_ITS | Encounter Summary ---
Author Organization [facility] Address [address] [place] [address] Care Team Providers Care Student Dean Name Role Phone Sam Fay MD Primary Care Provider [phone] Encounter Details Date Type Department Care Team (Late st Contact Info) Description 12/03/1999 Outpatient Historical [facility] Primary Care - [address] [place] [address] Massimo Piña, DO NO ADDRESS ON FILE Social History Tobacco Use Types Packs/Day Years Used Date Smoking Tobacco: Never Assessed Sex and Gender Information Value Date Recorded Sex Assigned at Not on file Legal Sex Male 8:53 PM PLANT ANATOMY TEACHER Gender Identity Not on file Sexual Orientation Not on file documented as of this encounter Plan of Treatment Upcoming Encounters Date Type Department Care Team (Late st Contact Info) Description 03/14/2025 11:30 AM PLANT ANATOMY TEACHER Office Visit [facility] Gastroenterology- [place] [address] [place] [address] Khloe Galvin NP [address] [address] 03/22/2025 11:00 AM PLANT ANATOMY TEACHER Appointment [facility] MRI [address] [place] [place] [address] Khloe Galvin NP [address] [address] 06/26/2025 2:45 PM CDT Office Visit [facility] [address] [place] [address] Favio Polanco MD [address] [place] [address] documented as of this encounter Visit Diagnoses Not on filedocumented in this encounter Additional Health Concerns Infection Onset Date Last Indicated Resolved Time R/O COVID-19 05/15/2024 05/15/2024 05/15/2024 1:12 PM CDT documented as of this encounter Care Teams Student Dean Relationship Specialty Start Date End Date Sam Fay MD PCP - General Emergency Medicine 12/22/18 documented as of this encounter
--- OUTSIDE RECORDS SUMMARY | 2025-02-22 08:12 | XMS_ITS | Encounter Summary ---
Author Organization [facility] Address [address] [place] [address] Care Team Providers Care Cigarette Packer Name Role Phone Sam Fay MD Primary Care Provider [phone] Encounter Details Date Type Department Care Team (Late st Contact Info) Description 03/12/2000 Outpatient Historical [facility] Primary Care - [address] [address] Massimo Piña, DO NO ADDRESS ON FILE Social History Tobacco Use Types Packs/Day Years Used Date Smoking Tobacco: Never Assessed Sex and Gender Information Value Date Recorded Sex Assigned at Not on file Legal Sex Male 8:53 PM DIGITAL CONTENT PRODUCER Gender Identity Not on file Sexual Orientation Not on file documented as of this encounter Plan of Treatment Upcoming Encounters Date Type Department Care Team (Late st Contact Info) Description 03/14/2025 11:30 AM DIGITAL CONTENT PRODUCER Office Visit [facility] Gastroenterology- [place] [address] [place] [address] Khloe Galvin NP [address] [address] 03/22/2025 11:00 AM DIGITAL CONTENT PRODUCER Appointment [facility] MRI [address] [place] [place] [address] Khloe Galvin NP [address] [address] 06/26/2025 2:45 PM CDT Office Visit [facility] [address] [place] [address] Favio Polanco MD [address] [place] [address] [place] [address] documented as of this encounter Visit Diagnoses Not on filedocumented in this encounter Additional Health Concerns Infection Onset Date Last Indicated Resolved Time R/O COVID-19 05/15/2024 05/15/2024 05/15/2024 1:12 PM CDT documented as of this encounter Care Teams Cigarette Packer Relationship Specialty Start Date End Date Sam Fay MD PCP - General Emergency Medicine 12/22/18 documented as of this encounter
--- OUTSIDE RECORDS SUMMARY | 2025-02-22 08:12 | XMS_ITS | Encounter Summary ---
Author Organization [facility] Address 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 [address] Khloe Galvin NP [address] [address] 06/26/2025 2:45 PM CDT Office Visit [facility] [address] [place] [address] Favio Polanco MD [address] [place] [address] documented as of this encounter Visit Diagnoses Not on filedocumented in this encounter Additional Health Concerns Infection Onset Date Last Indicated Resolved Time R/O COVID-19 05/15/2024 05/15/2024 05/15/2024 1:12 PM CDT documented as of this encounter Care Teams Security Field Supervisor Relationship Specialty Start Date End Date Sam Fay MD PCP - General Emergency Medicine 12/22/18 documented as of this encounter
--- NOTE | 2025-02-22 13:51 | P.PN_ITS ---
Vitals/I&O/Wt Last Vital Signs Temp 97.2 F L 02/22/25 12:01 Pulse 84 02/22/25 12:01 Resp 17 02/22/25 12:01 BP 117/71 02/22/25 12:01 Pulse Ox 96 02/22/25 12:01 O2 Del Method Nasal Cannula 02/22/25 12:01 O2 Flow Rate 2 02/22/25 08:24 FiO2 40 02/22/25 01:43 02/21/25 02/22/25 02/22/25 22:59 06:59 14:59 Intake Total 960 / 960 Output Total 500 / 500 Balance 460 / 460 Weight last 48 hrs Weight 88.932 kg Weight 90.718 kg Data 02/21/25 22:54 02/21/25 22:54 A&P Assessment and plan 1. Syncope and collapse: Orthostatics obtained, severely orthostatic, with about 60 point mmHg blood pressure drop from laying to standing from 140s to 80s. Already on midodrine 10 mg not a good candidate for droxidopa. Start fludrocortisone 0.1 mg nightly starting now. Monitor for risk of hypotension, acute CHF. Assess TTE after syncope with history of CAD, CABG, cardiomyopathy, mitral valve replacement. Last stress test 4 years ago, will obtain 1 in the morning. Has a loop recorder, request device interrogation. Was placed in 21 or 22, will see if it is still functioning. In case of persistent orthostasis may have to come off tamsulosin. Tizanidine can also be responsible for syncopal falls and will be stopped. 2. Dysphagia: Patient has known dysphagia on modified barium swallow I do not have those results. Chest x-ray shows no infiltrate 3. Paroxysmal atrial fibrillation: Patient is rate controlled currently 4. Chronic combined systolic and diastolic CHF (congestive heart failure): Volume euvolemic currently 5. Chronic kidney disease: Kidney function at baseline 6. History of mitral valve replacement with bioprosthetic valve: TTE 7. Diabetes mellitus: Blood sugar 126 on presentation will start sliding scale insulin low scale 8. 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 Assess TTE. Stress test. 9. Sleep apnea: Continue with BiPAP nightly. 10. Acute and chronic respiratory failure with hypercapnia: Wean oxygen to keep sats at 90% PDMP PDMP Reviewed: Not Reviewed Attestations 2 Medical Necessity Statement*: Continue hospitalization for further assessment and management after syncope in a gentleman with history of underlying CAD, cardiomyopathy, valvular heart disease, with severe orthostatic hypotension with failure of outpatient management. 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 transplanted heart: [place] heart Associated angina: with other forms of angina Sleep apnea G47.30 Acute and chronic respiratory failure with hypercapnia J96.22
[2025-02-22] MEDS: insulin glargine 100 units/1 mL 20 UNIT SUBCUT (20:46)
--- NOTE | 2025-02-22 21:19 | PC.NURSE ---
BLADDER SCAN INDICATED 138ML POST VOID
--- NOTE | 2025-02-22 22:13 | PC.NURSE ---
pt removed Bipap, refused to put it back on, stated he had his nose broken not that long ago from one of his falls and the bipap hurts his nose too much. nurse attempted to loosen strap and pt continue to refuse stating it just hurts too much and I don't want my nose injured again . this nurse explained and educated pt on importance of bipap for current health and pt continue to refuse even after stating I understand that but I cannot have my nose hurt like that .
[2025-02-23] VITALS (8 sets, daily range): BP systolic 77–150; BP diastolic 48–82; PULSE 72–84; RESP 16–17; TEMP 36.4–36.7; O2SAT 96–99; BMI 30.3
[2025-02-23] MEDS: APIXABAN 2.5 MG TABLET PO ×2 (04:45→16:09)
[2025-02-23 05:23] LABS: Anion Gap 15.1 (5-19); Blood Urea Nitrogen 30 mg/dL (8-23); Calcium 9.3 mg/dL (8.5-10.5); Carbon Dioxide 23 mmol/L (22-29); Chloride 106 mmol/L (98-107); Glucose 173 mg/dL (65-115); Osmolality Calculated 300 mOsm/kg (285-295); Potassium 4.1 mmol/L (3.5-5.1); Sodium 140 mmol/L (136-145)
--- NOTE | 2025-02-23 09:36 | PC.CHAP ---
Pastoral Care Encounter/Spiritual Assessment Type of Contact [] Declined personal care aide visit [] Patient/Family/Request visit [] Outpatient visit [] Follow-up visit [] Physician referral [] Code/Alert [x] Routine visit [] Staff referral [] Actively dying [] Patient sleeping [] Family support [] [] Out of room [] Palliative care [] [] Receiving care in room [] Pre-surgical visit [] Trauma [] Long length of stay [] ICU visit [] Other: Relational/Emotional Strength [x] Patient feels connected with others/family/visitors/staff [] Distress [] Loneliness/isolation [] Abandonment Spirituality of Patient [x] Person of Mague [] Attends Sabianism of their [place] [x] Believes in Prayer [] Reads Bible or Restorationist materials [] There are Spiritual issues to be addressed Manual Plate Filler Interventions [x] Prayer [x] Active listening [] Non-anxious presence [x] Spiritual/emotional support [] Crisis/trauma care [] Spiritual counseling [] Bereavement support [] Provided bereavement packet [] Provided Bible/devotional materials [] Provided toy/stuffed animal, coloring book to patient or family member [] Provided Communion [] Anointing/[place] [] Salvation [x] Completed spiritual assessment [] Other: Impact on Illness or Injury [] Angry [] Fearful [] Anxious [] Often cries [] Exhaustion [] Unable to work [] Unable to attend quaker [] Unable to walk/stand [] Unable to read [] Unable to drive [] Unable to eat/drink [] Unable to sleep [] Unable to be with family [] Patient intubated [] Other: Summary Time spent with patient 5 min
--- NOTE | 2025-02-23 13:46 | NMCV_ITS ---
NM yesica perf SPECT r/s* [id number] [address] Armendariz Age: 84 Gender: M : 1940 Exam Date: 02/23/2025 06:49 Ordering Phys: Lius Parisi MD Technologist: ROXANA Wilson Exam Location: [facility] Indications: cp STRESS TEST Please see separate stress test report in [facility] for full findings IMAGE PROTOCOL Rest/Stress 1 Lexiscan Day Radiopharmaceutical Dose (mCi) Administration Site Administered by Rest: Tc-99m 10.7 IV Kathy Urena, ROUTE AIDE Sestamibi Stress:Tc-99m 32.4 IV Kathy Bricenogle, ROUTE AIDE Sestamibi Rest: 23-Feb-2025 60 Discovery 630 Stress: 23-Feb-2025 30 Discovery 630 0.4mg Lexiscan. Supine position only as patient was unable to lay prone. SPECT RESULTS Technical Quality: Good Raw Data Analysis: Normal Image Corrections: No attenuation or motion correction applied Summed Stress Score: 25 Summed Rest Score: 22 Summed Difference Score: 4 PERFUSION FINDINGS Large area of fixed perfusion defect noted in basal to distal inferior and inferolateral wall suggestive of old myocardial infarction versus scarring in circumflex or dominant RCA territory. 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 No significant ischemia noted. Meenakshi Eden MD (Electronically Signed) Final Date: 24 February 2025 09:33 S
[2025-02-23] MEDS: insulin glargine 100 units/1 mL 20 UNIT SUBCUT (20:18)
--- NOTE | 2025-02-23 21:04 | P.PN_ITS ---
Subjective 2 Subjective: Denies any additional new symptoms. No chest pain. No presyncope or syncope. On reassessment orthostatics is again severely orthostatic this afternoon. Underwent stress test, denies chest pain or pressure during the test. Results pending. Vitals/I&O/Wt Last Vital Signs Temp 97.9 F 02/23/25 20:00 Pulse 83 02/23/25 20:00 Resp 17 02/23/25 20:00 BP 113/68 02/23/25 20:00 Pulse Ox 97 02/23/25 20:00 O2 Del Method Nasal Cannula 02/23/25 20:00 O2 Flow Rate 2 02/23/25 20:00 FiO2 28 02/22/25 21:01 02/23/25 02/23/25 02/23/25 06:59 14:59 22:59 Intake Total 480 / 480 240 / 720 Output Total 450 / 1475 200 / 200 400 / 600 Balance -450 / -515 280 / 280 -160 / 120 Weight last 48 hrs Weight 93.259 kg Weight 88.932 kg Weight 90.718 kg Physical Exam 2 Const: COMMON NORMALS: patient oriented x3 and alert GENERAL APPEARANCE: c ooperative ORIENTATION/CONSCIOUSNESS: Yes awake HENMT: COMMON NORMALS: oropharynx normal Neck/C-Spine: COMMON NORMALS: no JVD Resp: COMMON NORMALS: normal respiratory effort and clear to auscultation bilaterally AUSCULTATION: clear to auscultation bilaterally Cardio: COMMON NORMALS: no JVD, regular rhythm, S1 normal heart sound present, S2 normal heart sound present and No murmurs present (Cardio) RHYTHM: regular rhythm HEART SOUNDS: S1 normal heart sound present and S2 normal heart sound present GI: COMMON NORMALS: Normal to inspection, nondistended, normoactive bowel sounds present, Soft to palpation and non-tender PALPATION: Yes Soft to palpation Extremity: COMMON NORMALS: no joint enlargement and no pedal edema Neuro: COMMON NORMALS: patient oriented x3 and moves all extremities S ENSORIUM/ORIENTATION: Yes alert Skin: COMMON NORMALS: no rashes or lesions noted GENERAL SKIN EXAM: no rashes or lesions noted Data 02/21/25 22:54 02/23/25 04:24 A&P Assessment and plan 1. Syncope and collapse: Persistent severe orthostatic hypotension. Recheck today, still persistent despite starting fludrocortisone last night. Additional dose fluid cortisone given today 0.1. Increase nightly dose of fludrocortisone to 0.2. Monitor for risk of supine hypertension. Acute CHF Orthostatics obtained, severely orthostatic, with about 60 point mmHg blood pressure drop from laying to standing from 140s to 80s. Already on midodrine 10 mg not a good candidate for droxidopa. Reviewed TTE after syncope with history of CAD, CABG, cardiomyopathy, mitral valve replacement. Grade 2 diastolic dysfunction. Pending stress test results. Discussed with nursing, corrections caseworker. Has a loop recorder. Was placed in 21 or 22, will see if it is still functioning. Insert patient requested. In case of persistent orthostasis may have to come off tamsulosin. Tizanidine can also be responsible for syncopal falls and will be stopped. 2. Dysphagia: Patient has known dysphagia on modified barium swallow I do not have those results. Chest x-ray shows no infiltrate 3. Paroxysmal atrial fibrillation: Patient is rate controlled currently 4. Chronic combined systolic and diastolic CHF (congestive heart failure): Volume euvolemic currently 5. Chronic kidney disease: Kidney function at baseline 6. History of mitral valve replacement with bioprosthetic valve: TTE reviewed 7. Diabetes mellitus: Blood sugar 126 on presentation will start sliding scale insulin low scale 8. 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 Reviewed TTE. Pending results of stress test. 9. Sleep apnea: Continue with BiPAP nightly. 10. Acute and chronic respiratory failure with hypercapnia: Wean oxygen to keep sats at 90% PDMP PDMP Reviewed: Not Reviewed Attestations 2 Medical Necessity Statement*: Continue hospitalization for further assessment and management after syncope in a gentleman with history of underlying CAD, cardiomyopathy, valvular heart disease, with severe orthostatic hypotension with failure of outpatient management. 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 transplanted heart: [place] heart Associated angina: with other forms of angina Sleep apnea G47.30 Acute and chronic respiratory failure with hypercapnia J96.22
[2025-02-24] VITALS (7 sets, daily range): BP systolic 92–158; BP diastolic 59–76; PULSE 72–81; RESP 16–18; TEMP 36.4–36.8; O2SAT 87–98; BMI 30.9
[2025-02-24] MEDS: APIXABAN 2.5 MG TABLET PO (04:44)
--- NOTE | 2025-02-24 07:00 | ECG_ITS ---
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 The perfusion scan will be documented separately. DATA: Baseline heart rate was 79 beats per minute. Baseline blood pressure was [111/60] millimeters of mercury. Target heart rate was 136. Maximum heart rate achieved was [95]. which was 69% of the predicted target heart rate. Maximum blood pressure was 121/72 millimeters of mercury. The reason for ending the test was [completion of the protocol]. The patient did not experience any symptoms. ELECTROCARDIOGRAM: BASELINE: Sinus rhythm. Normal axis. Right bundle branch block EXERCISE: After Lexiscan injection, no ST-T changes suggestive of ischemic noted. PVCs noted. CONCLUSION: Please note due to baseline abnormality of the EKG specificity and sensitivity of the EKG portion of LexiScan MIBI stress test will be low 1. [EKG not suggestive of ischemia] 2. [Lexiscan injection unremarkable]. 3. Perfusion scan will be documented separately. Electronically Signed On 02-24-2025 09:42:34 ACCELERATOR SYSTEMS DIRECTOR by BELL DILL [id number]
--- NOTE | 2025-02-24 13:49 | P.DS_ITS ---
Discharge Providers Date of Admission: 02/22/25 06:20 Date of Discharge: February 24, 2025 Attending Provider at Admission: Anthony Godoy MD Attending Provider at Discharge: Luis Parisi Primary Care Provider: Lena Orellana MD Diagnoses at Discharge Discharge Diagnosis 1. Syncope and collapse: 2. Dysphagia: 3. Paroxysmal atrial fibrillation: 4. Chronic combined systolic and diastolic CHF (congestive heart failure): 5. Chronic kidney disease: 6. History of mitral valve replacement with bioprosthetic valve: 7. Diabetes mellitus: 8. 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 Sleep apnea: 10. Acute and chronic respiratory failure with hypercapnia: Reason for Visit Reason for Visit: sob Brief History: Jose Armendariz is a 84 year old male lives with his son and [id number]. Patient has recent modified barium swallow showing aspiration. He states he coughs and chokes with a eating at times. Today he was having a choking event and coughing when he passed out and was unresponsive for 30 seconds. His [id number] bumped him in the chest and slapped him a few times to get him awake but did not check pulse or do actual CPR. Patient was brought in by EMS with GCS of 15. He was noted to be hypercarbic and was placed on BiPAP for 2 hours here in improved. Blood gas were not rechecked. Patient states he is on CPAP at home which he uses nightly but does not know his settings. Patient states he had a maze procedure in 2008 and did well until the time of the pandemic in 2019. After that he started to fall often. He has been seen in the emergency department 3 times for falls within the last 5 months. He has also had visit for bradycardia. Last echo 02/2024 showed LVEF 45% with diastolic dysfunction grade 3/4, pulmonary hypertension. Patient reports that he had carotid Doppler in [facility] to Dr. Galan but we do not have those records. Hospital Course Hospital Course He was found to be severely hard of static, blood pressures down from 146/74 down to 77/48 while already on midodrine 10 mg 3 times daily. Fludrocortisone added and dose increased to 0.2 mg nightly. With some noted improvement in orthostasis although orthostatics do persist as discussed with him. Discussed strict orthostatic precautions. Recheck orthostatic blood pressures 138/62 lying to 92/60 standing. With past cardiac history with syncope and collapse was assessed by echocardiogram, with finding of normal ejection fraction, 55%, no regional wall motion abnormalities, grade 2 diastolic dysfunction. Mild MVR, mild AVR. With history of CABG, underwent addition assessment with stress testing, with noted large area of old myocardial infarction versus scarring noted in basal distal inferior inferolateral wall suggestive of old NE in either dominant RCA or circumflex territory. No significant ischemia noted. He worked with physical therapy. Did not have any further presyncopal or syncopal episodes. Please follow-up regarding orthostatic hypotension. Case of lack of improvement consider further measures with possibly de-escalation/discontinuation of tamsulosin. His oxygen requirement was found to be lower than what he is on at home, 2 L here, 4 L at home. Physical Exam Narrative: Sitting up at bedside Const: COMMON NORMALS: patient oriented x3 and alert GENERAL APPEARANCE: cooperative ORIENTATION/CONSCIOUSNESS: Yes awake HENMT: COMMON NORMALS: oropharynx normal Neck/C-Spine: COMMON NORMALS: no JVD Resp: COMMON NORMALS: normal respiratory effort and clear to auscultation bilaterally AUSCULTATION: clear to auscultation bilaterally Cardio: COMMON NORMALS: no JVD, regular rhythm, S1 normal heart sound present, S2 normal heart sound present and No murmurs present (Cardio) RHYTHM: regular rhythm HEART SOUNDS: S1 normal heart sound present and S2 normal heart sound present GI: COMMON NORMALS: Normal to inspection, nondistended, normoactive bowel sounds present, Soft to palpation and non-tender PALPATION: Yes Soft to palpation Extremity: COMMON NORMALS: no joint enlargement and no pedal edema Neuro: COMMON NORMALS: patient oriented x3 and moves all extremities SENSORIUM/ORIENTATION: Yes alert Skin: COMMON NORMALS: no rashes or lesions noted GENERAL SKIN EXAM: no rashes or lesions noted Discharge Data Studies Completed and Pending Completed Studies During Hospitalization Category Date Time Status CXRP [XR chest 1V portable [id number]] Stat Exams 02/21/25 22:35 Completed Cardiac Stress Test MIBI [Sestamibi Stress Test Request Exams 02/24/25 07:00 Completed ] Routine NM yesica perf SPECT r/s* [id number] Routine Nuc Med 02/23/25 13:46 Completed CV. echo complete* [id number] Routine Ultrasound 02/22/25 07:23 Completed Pending at discharge Category Date Time Status VBG [Venous Blood Gas] Stat Lab 02/21/25 22:48 Results Radiology Impressions Chest X-Ray 02/21/25 22:35 IMPRESSION: No focal consolidation, pleural effusion, or pneumothorax. Laboratory Results WBC 10.15 10^3/uL (3.29-11.43) 02/21/25 22:54 RBC 4.80 10^6/uL (3.85-5.65) 02/21/25 22:54 Hgb 14.30 g/dL (11.27-16.99) 02/21/25 22:54 Hct 44.4 % (37-53) 02/21/25 22:54 MCV 92.5 fl (82-101) 02/21/25 22:54 MCH 29.8 pg (27-33) 02/21/25 22:54 MCHC 32.2 g/dL (30-55) 02/21/25 22:54 RDW 13.7 % (12.1-15.1) 02/21/25 22:54 Plt Count 158 10^3/cmm (157-399) 02/21/25 22:54 MPV 9.4 fL (7.4-10.4) 02/21/25 22:54 Neut % (Auto) 80.7 % 02/21/25 22:54 Lymph % (Auto) 10.3 % 02/21/25 22:54 Cobb % (Auto) 6.1 % 02/21/25 22:54 Eos % (Auto) 1.6 % 02/21/25 22:54 Baso % (Auto) 0.5 % 02/21/25 22:54 Neut # (Auto) 8.19 10^3/uL (1.8-7.7) H 02/21/25 22:54 Lymph # (Auto) 1.1 10^3/uL (0.8-4.8) 02/21/25 22:54 Cobb # (Auto) 0.6 10^3/uL (0.2-0.9) 02/21/25 22:54 Eos # (Auto) 0.2 10^3/uL (0.0-0.8) 02/21/25 22:54 Baso # (Auto) 0.1 10^3/uL (0.0-0.1) 02/21/25 22:54 Nucleated RBC % (auto) 0 % 02/21/25 22:54 Nucleated RBCs # 0.0 /100WBC 02/21/25 22:54 APTT 36.0 SECONDS (23.9-36.7) 02/21/25 22:54 Specimen Type Venous 02/21/25 22:48 Ed Test N/a 02/21/25 22:48 VBG pH 7.25 (7.32-7.42) L 02/21/25 22:48 VBG pCO2 64.0 mmHg (41-51) H* 02/21/25 22:48 VBG pO2 32.6 mmHg (25-40) 02/21/25 22:48 VBG HCO3 28.0 mmol/L (24-28) 02/21/25 22:48 VBG Base Excess -0.8 mmol/L (-3.0-3.0) 02/21/25 22:48 VBG Hematocrit 44.3 % (42-52) 02/21/25 22:48 Lead Esthetician ID [email or web address] 02/21/25 22:48 Sodium 140 mmol/L (136-145) 02/23/25 04:24 Potassium 4.1 mmol/L (3.5-5.1) 02/23/25 04:24 Chloride 106 mmol/L (98-107) 02/23/25 04:24 Carbon Dioxide 23 mmol/L (22-29) 02/23/25 04:24 Anion Gap 15.1 (5-19) 02/23/25 04:24 BUN 30 mg/dL (8-23) H 02/23/25 04:24 Creatinine 1.5 mg/dL (0.7-1.2) H 02/23/25 04:24 GFR Calculation Not Reportable 02/23/25 04:24 Glucose 173 mg/dL (65-115) H 02/23/25 04:24 POC Glucose 258 mg/dL (70-110) H 02/24/25 11:07 Calculated Osmolality 300 mOsm/kg (285-295) H 02/23/25 04:24 Lactic Acid 1.5 mmol/L (0.5-2.2) 02/21/25 22:54 Calcium 9.3 mg/dL (8.5-10.5) 02/23/25 04:24 Phosphorus 3.6 mg/dL (2.5-4.5) 02/21/25 22:54 Magnesium 1.9 mg/dL (1.7-2.3) 02/21/25 22:54 Total Bilirubin 0.4 mg/dL (0.15-1.2) 02/21/25 22:54 AST 12 U/L (0-40) 02/21/25 22:54 ALT 15 U/L (0-41) 02/21/25 22:54 Alkaline Phosphatase 118 U/L (40-130) 02/21/25 22:54 Troponin T Baseline 38 ng/L (0-15) H 02/21/25 22:54 Troponin T 60 Minute 44.07 ng/L (0-15) H 02/21/25 23:58 Delta Troponin T 6.07 ABS# (0-10) 02/21/25 23:58 C-React Prot High Sens 0.380 mg/dL (0.0-0.3) H 02/21/25 22:54 NT-Pro-B Natriuret Pep 840 pg/mL (0-450) H 02/21/25 22:54 Total Protein 6.3 g/dL (6.6-8.7) L 02/21/25 22:54 Albumin 4.1 g/dL (3.5-5.2) 02/21/25 22:54 Globulin 2.2 g/dL (1.3-4.6) 02/21/25 22:54 Urine Color Yellow (Yellow) 02/21/25 07:05 Urine Appearance Clear (CLEAR) 02/21/25 07:05 Urine pH 5.5 (5-7) 02/21/25 07:05 Ur Specific [place] 1.024 (1.005-1.030) 02/21/25 07:05 Urine Protein Trace (Negative) A 02/21/25 07:05 Urine Glucose (UA) 3+ (Normal) H 02/21/25 07:05 Urine Ketones Negative (Negative) 02/21/25 07:05 Urine Blood 1+ (Negative) A 02/21/25 07:05 Urine Nitrate Negative (Negative) 02/21/25 07:05 Urine Bilirubin Negative (Negative) 02/21/25 07:05 Urine Urobilinogen 0.2 mg/dL (Negative) 02/21/25 07:05 Ur Leukocyte Esterase Negative (Negative) 02/21/25 07:05 Urine RBC 6-10 /hpf (0-2) 02/21/25 07:05 Urine WBC 0-5 /hpf (0-5) 02/21/25 07:05 Ur Squamous Epith Cells 0-5 /hpf (0-5) 02/21/25 07:05 Amorphous Sediment Not Reportable 02/21/25 07:05 Urine Bacteria None seen /hpf (NONE) 02/21/25 07:05 Hyaline Casts 0.81 /lpf 02/21/25 07:05 Influenza A (PCR) Negative (Negative) 02/21/25 22:40 Influenza Type B (PCR) Negative (Negative) 02/21/25 22:40 RSV (PCR) Negative (Negative) 02/21/25 22:40 SARS-CoV-2 (PCR) Negative (Negative) 02/21/25 22:40 Vitals Last Vital Signs Temp 97.6 F 02/24/25 11:22 Pulse 72 02/24/25 11:22 Resp 18 02/24/25 11:22 BP 120/76 02/24/25 11:22 Pulse Ox 97 02/24/25 11:22 O2 Del Method Nasal Cannula 02/24/25 11:22 O2 Flow Rate 2 02/24/25 04:00 FiO2 28 02/22/25 21:01 Discharge Plan Discharge Patient Disposition: Home Condition: Stable Prescriptions: New fludrocortisone 0.1 mg Tablet 0.2 mg PO BEDTIME Qty: 90 0RF Continued tamsulosin 0.4 mg capsule 0.4 mg PO BID Qty: 180 3RF memantine 5 mg tablet 5 mg PO BID Ozempic 0.25 mg or 0.5 mg (2 mg/3 mL) pen injector 0.5 mg SUBCUT Q7D Rx Instructions: ON THURSDAY (DME) diabetic shoes with 3 inserts See Rx Instructions .Route .MEDSUPPLY Qty: 1 0RF Rx Instructions: As directed to the shoe chilo Eliquis 5 mg tablet See Rx Instructions .ROUTE .COMPLEX Qty: 90 3RF Dose Instruction: TAKE ONE-HALF TABLET BY MOUTH TWICE A DAY FOR ATRIAL FIBRILLATION. THIS TABLET IS TO BE CUT IN HALF FOR YOUR DOSE Rx Instructions: TAKE ONE-HALF TABLET BY MOUTH TWICE A DAY FOR ATRIAL FIBRILLATION. THIS TABLET IS TO BE CUT IN HALF FOR YOUR DOSE atorvastatin 80 mg Tablet 80 mg PO QPM magnesium oxide [MagOx] 400 mg (241.3 mg magnesium) Tablet 400 mg PO BID calcium polycarbophil 625 mg Tablet 650 mg PO DAILY omeprazole 20 mg Tablet,Delayed Release (Dr/Ec) 20 mg PO BID cholecalciferol (vitamin D3) [Vitamin D3] 50 mcg (2,000 unit) tablet 2,000 unit PO QPM aspirin 81 mg Tablet,Delayed Release (Dr/Ec) 81 mg PO BEDTIME finasteride 5 mg Tablet 5 mg PO QPM vitamin B complex Tablet 2 tab PO QAM pyridoxine (vitamin B6) [Vitamin B-6] 100 mg Tablet 100 mg PO QAM furosemide 40 mg tablet 20 mg PO QAM PRN (Reason: Edema) acetaminophen 500 mg Tablet 500 mg PO QID PRN (Reason: Pain) potassium chloride 20 mEq tablet,ER particles/crystals 20 meq PO DAILY PRN (Reason: with lasix) midodrine 10 mg tablet 10 mg PO TID PRN (Reason: LOW BLOOD) omega 5-fsw-azg-fish oil [Fish Oil] 1,000 mg (120 mg-180 mg) Capsule 1 cap PO BID tizanidine 2 mg capsule 2 mg PO BID PRN (Reason: muscle spasticity) Qty: 14 0RF diazepam [Valium] 5 mg tablet 5 mg PO BID PRN (Reason: muscle spasm) Qty: 6 0RF guaifenesin 100 mg/5 mL Liquid 200 mg PO QID PRN (Reason: cough/congestion) fluticasone propion-salmeterol [Advair Diskus] 500-50 mcg/dose Blister With Device 1 inh INHALATION BID metoprolol succinate 25 mg Tablet Extended Release 24 Hr 12.5 mg PO DAILY Rx Instructions: SBP >100 and HR >100 insulin aspart U-100 100 unit/mL (3 mL) Insulin Pen 20 unit SUBCUT TID cyclobenzaprine 5 mg Tablet 5 mg PO TID PRN (Reason: Muscle Spasm) duloxetine 60 mg Capsule,Delayed Release(Dr/Ec) 60 mg PO DAILY empagliflozin 10 mg Tablet 10 mg PO QAM buspirone 5 mg Tablet 5 mg PO TID albuterol sulfate 90 mcg/actuation HFA aerosol inhaler 2 inh INHALATION Q4H PRN (Reason: shortness of breath or wheezing) Qty: 6.7 1RF Discharge Order = DC NOW: Discharge Order (Routine); Ordered 02/24/25 Ordered By: Luis Parisi Other Ambulatory Orders: DME: Oxygen (Order) Location: None Selected Ordered By: Luis Parisi Referrals: Pippa Zimmerman MD [Physician, Cardiology] - 04/17/25 11:00 am Lena Orellana MD [Primary Care Provider, Family Practice] - 4-7 days Referral Note: We have notified your physician's clinic of the need for a follow-up appointment to be scheduled. If you have not heard from them within the next 2 business days, please call them directly. Patient Instructions: Fludrocortisone Acetate (By mouth), COPD (Chronic Obstructive Pulmonary Disease) (DC), COPD Stoplight, Opioid Safety, Patient Portal & Pippa Instructions Activity Restrictions/Additional Instructions: Maintain strict orthostatic precautions as discussed. Rise slowly from laying to sitting and sitting to standing. In case he get lightheaded sit down or lie down immediately. Do not try to fight through lightheadedness as you will end up falling down and injuring yourself. Continue midodrine. You are started on fludrocortisone to help you maintain blood pressure while standing. Monitor blood pressures laying and standing at least daily in addition to regular blood pressures 2-3 times daily. Midodrine and fludrocortisone may increase risk of blood pressures being high while you are lying down. In case you are persistently having low blood pressures while standing up, medications may have to be adjusted further or tamsulosin may have to be cut down in dose or discontinued as it can contribute to symptoms of low blood pressure while standing Discharge Attestations Time Spent in Discharge Care*: greater than 30 min Quality Metrics Clinical Quality Measures [ No reported AMI, CVA or VTE this stay] Coding Level of Care Code 91809 Total time (in minutes) for Discharge: 50 Diagnoses Syncope and collapse R55 Dysphagia R13.10 Paroxysmal atrial fibrillation I48.0 Atrial fibrillation type: paroxysmal Chronic combined systolic and diastolic CHF (congestive heart failure) I50.42 Chronic kidney disease N18.9 History of mitral valve replacement with bioprosthetic valve Z95.3 Diabetes mellitus E11.9 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 transplanted heart: [place] heart Sleep apnea G47.30 Acute and chronic respiratory failure with hypercapnia J96.22
== END 2025-02-24 14:00 | disposition home or self-care (01) ==
LOC: ER 02-22 05:57 → MEDSURG 02-22 06:55
PROVIDERS: Admitting Provider Internal Medicine; Emergency Provider Student in an Organized Health Care Education/Training Program; PCP Family Medicine; Visit Provider Internal Medicine
DX: R55 Syncope and collapse (principal); R13.10 Dysphagia, unspecified; I48.0 Paroxysmal atrial fibrillation; Z95.3 Presence of xenogenic heart valve; J96.22 Acute and chronic respiratory failure with hypercapnia; G47.30 Sleep apnea, unspecified; I25.708 Atherosclerosis of coronary artery bypass graft(s), unspecified, with other forms of angina pectoris; E11.22 Type 2 diabetes mellitus with diabetic chronic kidney disease; I13.0 Hypertensive heart and chronic kidney disease with heart failure and stage 1 through stage 4 chronic kidney disease, or unspecified chronic kidney disease; N18.9 Chronic kidney disease, unspecified; I50.42 Chronic combined systolic (congestive) and diastolic (congestive) heart failure; K21.9 Gastro-esophageal reflux disease without esophagitis; Z79.82 Long term (current) use of aspirin; Z79.4 Long term (current) use of insulin; E78.5 Hyperlipidemia, unspecified; F32.A Depression, unspecified; Z66 Do not resuscitate; Z87.891 Personal history of nicotine dependence
CPT/HCPCS: 36415; 36416; 51798; 71045; 78452; 80048; 80053; 81001; 82803; 82962; 83605; 83735; 83880; 84100; 84484; 85025; 85730; 86141; 87637; 92507; 92523; 92526; 92610; 93005; 93017; 93306; 94660; 94664; 94760; 96372; 96375; 97110; 97116; 97162; 97167; 97530; 97535; 99285; A9500; G0378; J1815; J2785; J9999